=== PATIENT | male | born 1950 | race Caucasian/White ===

== ENCOUNTER 2024-01-27 09:16 | Outpatient (OUT) | payer MEDICARE, OTHER, SELFPAY ==
--- NOTE | 2024-01-26 15:23 | V.VEINS.HP ---
Vital Signs 01/26/24 15:43 01/27/24 09:25 Weight 114.305 kg BP 136/78 BP Location Left Brachial BP Position Sitting BP Cuff Size Adult BP Source Manual Cuff Respiration 18 Pulse 75 Pulse Source Monitor Pulse Oximetry (%) 95 Oxygen Delivery Method Room Air Comment The patient's blood pressure is elevated. Varicose Veins Patient is a 73 year old male in this day referred from his PCP Dr. Devi secondary to venous insufficiency. Patient c/o bilateral leg numbness, pain, edema, and heaviness. Patient rates pain at a 3-4 on a scale of 1-10. Patient states noted varicosities to lower legs within the last 3 months. Patient states that he was able to walk 3-5 miles per day but now is unable to do that due to heaviness and weakness and pain. Patient has not worn bilateral leg compression stockings, yet is willing to purchase them and wear them accordingly. Patient also notes multiple episodes of hemorrhagic varicosities. Patient has no history of blood clots. Patient is unaware of any family history of varicose veins. Godwin Bazzi MD personally performed the services described in this documentation, as scribed by Bay Reaves RN in my presence and it is both accurate and complete. Bay Bazzi RN, am scribing for, and in the presence of, Dr. Godwin Gray and in the presence of the patient. . thigh: bilateral (left leg > right leg), knee: bilateral, calf: bilateral, ankle: bilateral and gonzalez: bilateral aching, burning, cramping and dull 3 3 months Worsened in recent months: Yes standing elevating extremities Reports muscle spasms of leg, fatigue, heaviness, limb pain and leg edema History of lower extremity trauma: No Superficial thrombophlebitis: No Family history of varicose veins: no Has patient had previous lower extremity venous surgery: No Patient has previously received the following treatment(s) for lower extremity varicose veins: Reports none Does patient have a history of : not applicable Has patient had lower extremity venous scan with relux testing: No Support hose used: No Problems walking or doing physical activity: Yes How does it affect you: unable to exercise due to pain and weakness Do you walk much: Yes Review of Systems ROS Narrative [id number] wound noted to right mid anterior lower leg Godwin Bazzi MD personally performed the services described in this documentation, as scribed by Bay Reaves RN in my presence and it is both accurate and complete. I, Bay Reaves RN, am scribing for, and in the presence of, Dr. Godwin Gray and in the presence of the patient. Status of ROS 10 or more systems reviewed and unremarkable except as noted in history and below Cardiovascular Reports: edema Integumentary/Breast Reports: skin pain, skin swelling and changes in skin color Neurological Reports: numbness in extremities and weakness in extremities Hematologic/Lymphatic Reports: easy bruising and easy bleeding PFSH [facility] Medical History (Updated 01/27/24 @ 09:58 by Bay Reaves) Prostate CA ?C61 - Malignant neoplasm of prostate (ICD-10) Knee arthropathy ?M17.10 - Unilateral primary osteoarthritis, unspecified knee (ICD-10) 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 ?M19.112 - Post-traumatic osteoarthritis, left shoulder (ICD-10) ?S46.002S - Unspecified injury of muscle(s) and tendon(s) of the rotator cuff of left shoulder, sequela (ICD-10) Kidney stones ?N20.0 - Calculus of kidney (ICD-10) Osteoarthritis of hip ?M16.9 - Osteoarthritis of hip, unspecified (ICD-10) Varicose veins of bilateral lower extremities with pain ?I83.813 - Varicose veins of bilateral lower extremities with pain (ICD-10) Hypertension ?I10 - Essential (primary) hypertension (ICD-10) Obesities, morbid ?E66.01 - Morbid (severe) obesity due to excess calories (ICD-10) Obstructive sleep apnea ?G47.33 - Obstructive sleep apnea (adult) (pediatric) (ICD-10) Angina pectoris ?I20.9 - Angina pectoris, unspecified (ICD-10) Coronary artery disease ?I25.10 - Atherosclerotic heart disease of [place] coronary artery without angina pectoris (ICD-10) Nonrheumatic aortic (valve) stenosis ?I35.0 - Nonrheumatic aortic (valve) stenosis (ICD-10) Surgical History (Updated 01/27/24 @ 09:41 by Bay Reaves) History of carpal tunnel surgery ?Z98.890 - Other specified postprocedural states (ICD-10) History of right hip replacement ?Z96.641 - Presence of right artificial hip joint (ICD-10) History of bilateral knee replacement ?Z96.653 - Presence of artificial knee joint, bilateral (ICD-10) Family History (Updated 01/27/24 @ 09:38 by Bay Reaves) Other Aneurysm Family history of hypertension Family history of stroke Social History (Updated 01/27/24 @ 09:42 by Bay Reaves) Within the past year, how often did you have a drink containing alcohol: 2-3 times a week Smoking status: Never smoker Non-prescribed substance use: denies use Meds Home Medications and Allergies Home Medications ?Medication ?Instructions ?Recorded ?Confirmed ?Type amlodipine 5 mg tablet (Norvasc) 5 mg PO DAILY 01/26/24 01/26/24 History aspirin 81 mg capsule 81 mg PO DAILY 01/26/24 01/26/24 History atorvastatin 40 mg tablet 40 mg PO DAILY 01/26/24 01/26/24 History cholecalciferol (vitamin D3) 25 25 mcg PO DAILY 01/26/24 01/26/24 History mcg (1,000 unit) tablet diphenhydramine HCl 25 mg capsule 25 mg PO Q8H PRN allergic reaction 01/26/24 01/26/24 History (Benadryl) losartan 100 mg tablet (Cozaar) 100 mg PO DAILY 01/26/24 01/26/24 History semaglutide (weight loss) 1 mg/0.5 0.25 mg subcut Q7D 01/26/24 01/26/24 History mL subcutaneous pen injector (Wegovy) sildenafil 50 mg tablet (Viagra) 50 mg PO DAILY PRN sexual activity 01/26/24 01/26/24 History tadalafil 10 mg tablet (Cialis) 10 mg PO DAILY PRN sexual activity 01/26/24 01/26/24 History zolpidem 10 mg tablet (Ambien) 01/26/24 History Allergies Allergy/AdvReac Type Severity Reaction Status Date / Time No Known Drug Allergies Allergy Verified 01/26/24 15:42 Exam Constitutional Documenting provider has reviewed patient's vital signs: yes Common normals: oriented x3 Nutritional appearance: overweight Lymph Lymphatic: no lymphedema noted Cardio Peripheral pulses: posterior tibial pulses present and dorsalis pedis pulses present Extremity Common normals: normal capillary refill General: calf tenderness and edema Right lower extremity: lower leg Right lower leg: inspection and palpation Left lower extremity: lower leg Left lower leg: inspection and palpation Neuro Common normals: oriented x3 Results Additional Findings Additional findings: Bilateral leg reflux u/s reveals dilated and incompetent great and small saphenous veins along with incompetent perforating vein near ulcer to right mid lower leg along with bilateral leg branch saphenous truncal tuberosity varicosities. Godwin Bazzi MD personally performed the services described in this documentation, as scribed by Bay Reaves RN in my presence and it is both accurate and complete. Bay Bazzi RN, am scribing for, and in the presence of, Dr. Godwin Gray and in the presence of the patient. Assessment and Plan Assessment and Plan (1) Varicose veins of bilateral lower extremities with pain: Plan Patient to initiate bilateral leg knee high compression stocking use, continue exercise, rest, and elevation bilateral legs/feet. Patient to return in 3 months for f/u post compression stocking use. If symptoms persist, move forward with EVLT's of bilateral leg GSV and SSV and perforating vein to right lower leg. Once EVLT's complete, move forward with microfoam chemical ablation bilateral leg branch saphenous tuberosities. Godwin Bazzi MD personally performed the services described in this documentation, as scribed by Bay Reaves RN in my presence and it is both accurate and complete. Bay Bazzi RN, am scribing for, and in the presence of, Dr. Godwin Gray and in the presence of the patient.
--- NOTE | 2024-01-27 09:17 | VEIN_ITS ---
Patient Name: MEERA WARNER MR#: [id number] : 1950 Exam Date: 01/27/2024 Ordering Doctor: DR MEERA BRAND M.D. RADIOLOGY REPORT PROCEDURE: VC EXT VENOUS REFLUX GEMINI LMTD COMPARISON: None. INDICATIONS: I83.813 Bilateral painful varicose veins TECHNIQUE: Duplex imaging of the lower extremity to assess the deep and superficial venous system for the presence of deep or superficial venous incompetence and to document the location and severity of disease. The study includes evaluation of the great saphenous vein (GSV), anterior accessory saphenous vein (AASV) and small saphenous vein (SSV). Patient scanned in reverse Trendelenburg and standing. FINDINGS: RIGHT LOWER EXTREMITY: Saphenofemoral Junction Reflux: Yes 7.5mm 1.7 sec GSV: Diam (mm) Reflux/ Time (sec) Proximal Thigh 6.3 Yes 2.0 Mid Thigh 6.6 Yes 1.7 Distal Thigh 5.9 Yes 2.9 Prox Calf 5.9 Yes 3.3 Mid Calf 0.9 No Saphenopopliteal Junction Reflux: 5.7mm Yes 2.2 SSV: Proximal Calf 5.8 Yes 0.6 Mid Calf 5.3 Yes 3.6 AASV: Not present Proximal Thigh Mid Thigh Distal Thigh Thrombi: Non occlusive chronic thrombus visualized in SSV. Compressibility: Normal Flow: Normal Preforator: Dist/med calf 5.1mm with 1.2s reflux in area of wound. Tech Note: Incompetent GSV and SSV. GSV is extrafascial from distal thigh to mid calf. Patent varicose vein mid/med calf 5.2mm with 2.1s reflux. Patent varicose vein dist/med thigh 4.4mm with 0.6s reflux. Patent varicose vein prox/med calf 5.7mm with 2.1s reflux. LEFT LOWER EXTREMITY: Saphenofemoral Junction Reflux: Yes 7.8 mm 1.6 sec GSV: Diam (mm) Reflux/Time (sec) Proximal Thigh 6.1 Yes 0.6 Mid Thigh 5.3 Yes 1.1 Distal Thigh 5.1 Yes 0.9 Prox Calf 4.9 No Mid Calf 4.8 Yes 0.6 Saphenopopliteal Junction Relux: 6.0 mm Yes 0.7 SSV: Proximal Calf 5.5 Yes 1.4 Mid Calf 3.3 No AASV: Proximal Thigh Mid Thigh Distal Thigh Thrombi: Non occlusive chronic thrombus visualized in SSV. Compressibility: Normal Flow: Normal Pharmacologist: Dist/med calf 3.4mm with 0s reflux. Tech Note: Incompetent GSV and SSV. Patent varicose vein prox/med calf 5.3mm with 0.6s reflux. Patent varicose vein medial knee 4.6mm with 0.8s reflux. CONCLUSION: 1. Abnormally dilated and incompetent bilateral great saphenous veins and bilateral small saphenous veins. 2. Abnormally dilated incompetent large tectonophysicist vein within lower right leg at site of slow healing wound. Dictated by: Godwin Gray M.D. on 01/27/2024 at 10:17 Approved by: Godwin Gray M.D. on 01/27/2024 at 10:24
--- NOTE | 2024-01-27 09:17 | VEIN_ITS ---
Patient Name: MEERA WARNER MR#: [id number] : 1950 Exam Date: 01/27/2024 Ordering Doctor: DR MEERA BRAND M.D. RADIOLOGY REPORT PROCEDURE: [facility] - OFFICE VISIT INITIAL COMPARISON: None. PROGRESS NOTES: [age] year old male who presents with a 3 month history of dilated bulging veins, edema, heaviness, nonhealing wound. The patient's left leg symptoms are worse than the right. There has been a progression of symptoms over time. This increases with prolonged leg dependency. The patient describes an improvement with rest, elevation, exercise. The patient denies any signs and symptoms to suggest arterial ischemia. The patient describes a family history : None. The patient has drinking and smoking history of occasional alcohol consumption; no tobacco use. Patient has a past medical history significant for varicose veins, coronary artery disease, kidney stones. The patient denies a history of deep venous thrombus or pulmonary embolus. See separate history and physical for medication list. No prior treatment for varicose or spider veins. No prior use of compression stockings. After review of nurse notes, history and physical exam I discussed at length the pathophysiology of venous hypertension and possible treatments, therapies and strategies available. We discussed at length the importance of elevating the lower extremities above the level of the heart, increased physical activity and compression stocking use. Ultrasound venous reflux study performed today was discussed at length with the patient. The report demonstrates abnormally dilated and incompetent bilateral great saphenous veins and bilateral small saphenous veins along with associated incompetent branch saphenous varicosities. Within lower right leg adjacent the nonhealing wound is a dilated and incompetent hall tender vein.. PHYSICAL EXAM: The right leg demonstrates several varicosities, a few spider veins, small nonhealing wound/ ulceration, mild edema, no skin discoloration. The left leg demonstrates several varicosities, a few spider veins, no ulceration, moderate edema, no skin discoloration. Both thighs, legs and feet were symmetrically warm to the touch. Good posterior tibial and dorsalis pedis pulses were present bilaterally. VEIN/VC Facility EST Comprehensive IMPRESSION: 1. Bilateral lower extremity venous insufficiency 2. Bilateral lower extremity varicose veins 3. Bilateral lower extremity subcutaneous edema 4. No flow significant arterial disease 5. CEAP: C6, AP, AP, NE PLAN: 1. Begin using compression stockings. Follow-up in 3 months for evaluation. 2. Elevated legs and increased physical activity symptomatic relief Future plans would include: 3. Endovenous laser ablation of bilateral great saphenous and small saphenous veins. 4. Endovenous laser ablation of lower right leg hall tender vein. 5. Microfoam chemical ablation of bilateral lower extremity incompetent branch saphenous varicosities. Nurse notes, history and physical were reviewed and confirmed, see attached forms. The nurse was present throughout the physical exam and consultation Dictated by: Godwin Gray M.D. on 01/27/2024 at 12:11 Approved by: Godwin Gray M.D. on 01/27/2024 at 12:18
[2024-01-27 09:25] VITALS: BP 136/78; PULSE 75; O2SAT 95
--- NOTE | 2024-01-27 11:08 | W.VEIN ---
Discharge Plan Discharge Disposition: Home, Self-Care Follow Up Appointments: f/u in 3 months Plan of Treatment: initiate compression stockings and f/u in 3 months Print Language: Serbian Discharge Date/Time: 01/27/24 11:09
== END 2024-01-27 11:09 | disposition home or self-care (01) ==
LOC: VC 09:17
PROVIDERS: Visit Provider Radiology Diagnostic Radiology
DX: I83.813 Varicose veins of bilateral lower extremities with pain (principal)
CPT/HCPCS: 93970; G0463

== ENCOUNTER 2024-05-01 09:09 | Outpatient (OUT) | payer MEDICARE, OTHER, SELFPAY ==
--- NOTE | 2024-05-01 07:31 | V.VEINS.HP ---
Varicose Veins Patient in this day as a 3 month f/u. Patient is a 73 year old male referred from his PCP Dr. Devi secondary to venous insufficiency. Patient c/o bilateral leg numbness, pain, edema, and heaviness. Patient rates pain at a 3-4 on a scale of 1-10. Patient states noted varicosities to lower legs within the last 3 months. Patient states that he was able to walk 3-5 miles per day but now is unable to do that due to heaviness and weakness and pain. Patient has not worn bilateral leg compression stockings, yet is willing to purchase them and wear them accordingly. Patient also notes multiple episodes of hemorrhagic varicosities. Patient has no history of blood clots. Patient is unaware of any family history of varicose veins. Patient was administered bilateral leg knee high compression stockings and educated on use of stockings. Patient states that he was able to wear the stockings regularly and did experience improvement most notably in edema. Patient does however, state that he still has persistant pain and edema and would like to proceed with treatments. Godwin Bazzi MD personally performed the services described in this documentation, as scribed by Bay Reaves RN in my presence and it is both accurate and complete. Bay Bazzi RN, am scribing for, and in the presence of, Dr. Godwin Gray and in the presence of the patient. . thigh: bilateral (left leg > right leg), knee: bilateral, calf: bilateral, ankle: bilateral and gonzalez: bilateral aching, burning, cramping and dull 3 3 months Worsened in recent months: Yes standing elevating extremities Reports muscle spasms of leg, fatigue, heaviness, limb pain and leg edema History of lower extremity trauma: No Superficial thrombophlebitis: No Family history of varicose veins: no Has patient had previous lower extremity venous surgery: No Patient has previously received the following treatment(s) for lower extremity varicose veins: Reports none Does patient have a history of : not applicable Has patient had lower extremity venous scan with relux testing: No Support hose used: No Problems walking or doing physical activity: Yes How does it affect you: unable to exercise due to pain and weakness Do you walk much: Yes Review of Systems ROS Narrative [id number] wound noted to right mid anterior lower leg Godwin Bazzi MD personally performed the services described in this documentation, as scribed by Bay Reaves RN in my presence and it is both accurate and complete. I, Bay Reaves RN, am scribing for, and in the presence of, Dr. Godwin Gray and in the presence of the patient. 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 ?M19.112 - Post-traumatic osteoarthritis, left shoulder (ICD-10) ?S46.002S - Unspecified injury of muscle(s) and tendon(s) of the rotator cuff of left shoulder, sequela (ICD-10) Kidney stones ?N20.0 - Calculus of kidney (ICD-10) Osteoarthritis of hip ?M16.9 - Osteoarthritis of hip, unspecified (ICD-10) Varicose veins of bilateral lower extremities with pain ?I83.813 - Varicose veins of bilateral lower extremities with pain (ICD-10) Hypertension ?I10 - Essential (primary) hypertension (ICD-10) Obesities, morbid ?E66.01 - Morbid (severe) obesity due to excess calories (ICD-10) Obstructive sleep apnea ?G47.33 - Obstructive sleep apnea (adult) (pediatric) (ICD-10) Angina pectoris ?I20.9 - Angina pectoris, unspecified (ICD-10) Coronary artery disease ?I25.10 - Atherosclerotic heart disease of [place] coronary artery without angina pectoris (ICD-10) Nonrheumatic aortic (valve) stenosis ?I35.0 - Nonrheumatic aortic (valve) stenosis (ICD-10) Surgical History (Updated 01/27/24 @ 09:41 by Bay Reaves) History of carpal tunnel surgery ?Z98.890 - Other specified postprocedural states (ICD-10) History of right hip replacement ?Z96.641 - Presence of right artificial hip joint (ICD-10) History of bilateral knee replacement ?Z96.653 - Presence of artificial knee joint, bilateral (ICD-10) Family History (Updated 01/27/24 @ 09:38 by Bay Reaves) Other Aneurysm Family history of hypertension Family history of stroke Social History (Updated 01/27/24 @ 09:42 by Bay Reaves) Within the past year, how often did you have a drink containing alcohol: 2-3 times a week Smoking status: Never smoker Non-prescribed substance use: denies use Meds Home Medications and Allergies Home Medications ?Medication ?Instructions ?Recorded ?Confirmed ?Type amlodipine 5 mg tablet (Norvasc) 5 mg PO DAILY 01/26/24 01/26/24 History aspirin 81 mg capsule 81 mg PO DAILY 01/26/24 01/26/24 History atorvastatin 40 mg tablet 40 mg PO DAILY 01/26/24 01/26/24 History cholecalciferol (vitamin D3) 25 25 mcg PO DAILY 01/26/24 01/26/24 History mcg (1,000 unit) tablet diphenhydramine HCl 25 mg capsule 25 mg PO Q8H PRN allergic reaction 01/26/24 01/26/24 History (Benadryl) losartan 100 mg tablet (Cozaar) 100 mg PO DAILY 01/26/24 01/26/24 History semaglutide (weight loss) 1 mg/0.5 0.25 mg subcut Q7D 01/26/24 01/26/24 History mL subcutaneous pen injector (Wegovy) sildenafil 50 mg tablet (Viagra) 50 mg PO DAILY PRN sexual activity 01/26/24 01/26/24 History tadalafil 10 mg tablet (Cialis) 10 mg PO DAILY PRN sexual activity 01/26/24 01/26/24 History zolpidem 10 mg tablet (Ambien) 01/26/24 History Allergies Allergy/AdvReac Type Severity Reaction Status Date / Time No Known Drug Allergies Allergy Verified 01/26/24 15:42 Exam Narrative Exam Narrative: Godwin Bazzi MD personally performed the services described in this documentation, as scribed by Bay Reaves RN in my presence and it is both accurate and complete. [facility] RN, am scribing for, and in the presence of, Dr. Godwin Gray and in the presence of the patient. Constitutional Documenting provider has reviewed patient's vital signs: yes Common normals: oriented x3 Nutritional appearance: overweight Lymph Lymphatic: no lymphedema noted Cardio Peripheral pulses: posterior tibial pulses present and dorsalis pedis pulses present Extremity Common normals: normal capillary refill General: calf tenderness and edema Right lower extremity: lower leg Right lower leg: inspection and palpation Left lower extremity: lower leg Left lower leg: inspection and palpation Neuro Common normals: oriented x3 Results Additional Findings Additional findings: Bilateral leg reflux u/s reveals dilated and incompetent great and small saphenous veins bilaterally along with incompetent perforating vein near ulcer to right mid lower leg and lastly, bilateral leg branch saphenous truncal tuberosity varicosities. Godwin Bazzi MD personally performed the services described in this documentation, as scribed by Bay Reaves RN in my presence and it is both accurate and complete. Bay Bazzi RN, am scribing for, and in the presence of, Dr. Godwin Gray and in the presence of the patient. Assessment and Plan Assessment and Plan (1) Varicose veins of bilateral lower extremities with pain: Plan Patient is to continue use of bilateral leg knee high compression stockings, exercise, rest, and elevation of bilateral legs/feet. Patient to return for EVLTs of right GSV followed by left GSV followed by right SSV followed by left SSV followed by EVLT of right leg perforating vein near wound area. Once EVLTs are complete, move forward with microfoam chemical ablation bilateral leg branch saphenous varicosities. Godwin Bazzi MD personally performed the services described in this documentation, as scribed by Bay Reaves RN in my presence and it is both accurate and complete. Bay Bazzi RN, am scribing for, and in the presence of, Dr. Godwin Gray and in the presence of the patient.
--- NOTE | 2024-05-01 07:34 | W.VEIN ---
Discharge Plan Discharge Disposition: Home, Self-Care Outpatient Diagnostics: VC Endovenous Ablation 1VeinRT (Routine) Timeframe: 3 Months Facility: [facility] - Location: [facility]in Center Ordered By: Godwin Gray Plan of Treatment: EVLT of right GSV Patient Instructions: Endovenous Ablation (GEN) Print Language: Tristanian Discharge Date/Time: 05/01/24 09:10
--- NOTE | 2024-05-01 09:11 | VEIN_ITS ---
Patient Name: MEERA WARNER MR#: [id number] : 1950 Exam Date: 05/01/2024 Ordering Doctor: DR MEERA BRAND M.D. RADIOLOGY REPORT PROCEDURE: [facility] - OFFICE VISIT FOLLOW UP COMPARISON: None. PROGRESS NOTES: The patient reports improvement slight improvement in symptoms while wearing compression stockings for past 3 months. Patient continues to have nonhealing lower extremity wounds, dilated veins, lower extremity pain and swelling, and skin discoloration. Physical exam demonstrates dilated bulging veins and nonhealing lower right leg wounds. Review of the ultrasound performed January 27, 2024. The patient expressed a desire to proceed with treatment of incompetent varicose veins. The patient was informed that treatment was a process and would require several procedures/sessions. VEIN/ Facility EST [facility] IMPRESSION: 1. Bilateral lower extremity venous insufficiency and subcutaneous edema as previously diagnosed, with beneficial use of compression stockings over past 3 months. PLAN: 1. Proceed with previously late out plan to include endovenous laser ablation of bilateral great saphenous and small saphenous veins, laser ablation of right lower leg vegetable worker veins, and bilateral lower extremity microfoam chemical ablation of incompetent branch saphenous varicosities. Nurse notes, history and physical were reviewed and confirmed, see attached forms. The nurse was present throughout the physical exam and consultation Dictated by: Godwin Gray M.D. on 05/01/2024 at 11:19 Approved by: Godwin Gray M.D. on 05/01/2024 at 11:24
--- OUTSIDE RECORDS SUMMARY | 2024-05-01 09:32 | XMS_ITS | CCD ---
Author Organization [facility] Care Team Providers Care Senior Electrical Controls Engineer Name Role Phone JOBY CEDILLO Attending JOBY Clement Admitting UnavailJOBY Monsivais Attending UnavailJOBY Monsivais Admitting UnavailDR MEERA Garcia V Consulting Unavailable JOBY CEDILLO Consulting UnavailPRASANNA Smith Admitting Unavailable PRASANNA LEE Attending Unavailable PRASANNA LEE Consulting Unavailable DR MONA REESE Consulting Unavailable JOBY CEDILLO Attending UnavailJOBY Monsivais Admitting Unavailbrandon e Mona Reese DO Primary Care Provider Meera Daugherty Unavailable Mona Reese Unavailable Unavailable Unavailable Mona Reese DO Primary Care Provider Dr. Mona Reese Primary Care Unava ilable Cely Marley Referring Unavailable Cely Marley Attending Unavailable Dr. Mona Reese Primary Care Unava ilable DO Mona Reese Primary Care Provider DO Mona Reese Attending Provider [phone] Mona Reese DO Primary Care Provider DO Mona Reese Primary Care Provider [phone] TRAVIS Izquierdo Attending Provider MD Mona Lezama II Attending Provider TRAVIS Roa Attending Provider [phone] Mona Reese DO Primary Care Provider Mona Reese DO Unavailable Mona Reese DO Primary Care Provider MONA REESE Attending Unavailable MONA REESE Referring Unavailable BIB ROA Attending Unavailable MONA REESE Referring Unavailable MONA REESE Referring Unavailable ESSIE DAUGHERTY Attending Unavailable MONA REESE Attending Unavailable MONA REESE Attending Unavailable MONA REESE Attending Unavailable MONA REESE Referring Unavailable Mona Reese DO Primary Care Provider Cely Marley MD Unavailable CELY MARLEY Attending Unavailable CELY MARLEY Referring Unavailable OMNA REESE Primary Care Unavailab Mona Simpson DO Primary Care Provider [phone] Essie Granger Attending Provider Mona Lezama MD Attending Provider [phone] Mona Reese DO Attending Provider Mona Reese [facility] Care Unavailable Essie Izquierdo Admitting Unavail able Essie Izquierdo Attending Unavail able Mona Reese Primary Care Unavailable Mona Lezama II Admitting UnavailMona [place] II Attending Unavailbrandon e Mona Reese Admitting Unavailable Mona Reese Primary Care Unavailable Mona Reese Attending Unavailable Mona Reese Primary Care Unavailable Bib Roa Admitting Unavailable Bib Roa Attending Unavailable Mona Reese Primary Care Unavailable Mona Lezama II Admitting UnavailMona [place] II Attending Unavailabl e Medications Current Medications Medication Drug Class(es) Dates Sig (Normalized) Sig (Original) allopurinol 100 mg oral tablet (15 sources) Xanthine Oxidase Inhibitor Start: 09-04-2021 take 1 tablet by mouth once daily in the morning allopurinol (Zyloprim) 100 mg tablet Take 1 tablet (100 mg) by mouth once daily in the morning. 09/04/2021 Active take 1 tablet by kenneth th every twenty-four hours Allopurinol 100 MG 1 tablet Orally Once a day Active Comment on above: Take 100 mg by mouth once daily. amLODIPine 5 mg oral tablet (20 sources) Dihydropyridine Calcium Channel Caleb Start: 02-09-20 take 0.5 tablet by mouth once daily amLODIPine (Norvasc) 5 MG tablet Indications: Essential (primary) hypertension (CMS/HCC) Take 0.5 tablets (2.5 mg) by mouth Daily 90 tablet 3 02/09/2024 Active Start: 02-21-2019 End: 04-14-2024 take 1 tablet by mouth once daily Amlodipine 5 mg Tablet Active 5 MG PO Daily February 20, 2019 11:00pm Comment on above: Take 1 tablet by kenneth th once daily. aspirin 81 mg delayed release oral tablet (15 sources) Platelet Aggregation Inhibitor, Nonsteroidal Anti-inflammatory Drug Start: 10-08-2021 take 1 tablet by mouth twice daily aspirin, enteric coated (ASPIRIN, ENTERIC COATED) 81 mg EC tablet Take 1 tablet by mouth twice daily. 10/08/2021 Active End: 04-09-2023 ASPIRIN 81 MG chewable table t Chew 81 mg 1 (one) time each day at the same time. Active take 1 tablet by kenneth th once daily Aspirin EC 81 MG Oral Tablet Delayed Release TAKE 1 TABLET DAILY. Quantity: 90 Refills: 3 Ordered: 10-Apr-2022 Semaj BRIGHT, Cely Active Comment on above: Take 81 mg by mouth once daily. Take 1 tablet by kenneth th twice daily. atorvastatin 40 mg oral tablet (20 sources) HMG-CoA Reductase Inhibitor Start: End: take 1 tablet by mouth once daily Atorvastatin 40 mg Tablet Active 40 MG PO Daily February 20, 2019 11:00pm Comment on above: Take 40 mg by mouth once daily. brimonidine tartrate 2 mg/ml ophthalmic solution (8 sources) alpha-Adrenergic Agonist Start: Brimonidine 0.2 % drops Active DROPS OPHTHALMIC February 08, 2024 11:00pm Start: 02-09-2024 Brimonidine Ac tive DROPS OPHTHALMIC February 09, 2024 12:00am Start: 03-20-2023 brimonidine (A lphaGAN) 0.2 % ophthalmic solution 03/20/2023 Active cholecalciferol 0.025 mg oral tablet (5 sources) Vitamin D take 1 tablet by mouth once daily cholecalciferol (Vitamin D-3) 25 MCG (1000 UT) tablet Take 1 tablet (1,000 Units) by mouth once daily. Active Diclofenac (2 sources) Nonsteroidal Anti-inflammatory Drug Voltaren 1 % as directed Externally Active Diclofenac Activ e diphenhydrAMINE hydrochloride 25 mg oral capsule (20 sources) Histamine-1 Receptor Antagonist Start: 06-21-2020 take 1 capsule by mouth once daily at bedtime as needed for sleep Diphenhydramine Hcl (Benadryl) 25 mg Capsule Active 25 MG PO Daily at bedtime as needed for Sleep June 21, 2020 12:00am diphenhydrAMINE (Sominex) 25 mg tablet Take 1 tablet (25 mg) by mouth as needed at bedtime. Active Comment on above: Take 25 mg by mouth as needed. dorzolamide 20 mg/ml / timolol 5 mg/ml ophthalmic solution (4 sources) Carbonic Anhydrase Inhibitor, beta-Adrenergic Caleb Start: 01-19-2023 take 1 drop(s) into the eye(s) every twelve hours dorzolamide-timoloL (Cosopt) 22.3-6.8 mg/mL ophthalmic solution Administer 1 drop into both eyes every 12 hours. 01/19/2023 Active Start: 01-19-2023 take 1 drop(s) into the eye(s) every twelve hours dorzolamide-timolol (Cosopt) 2-0.5 % ophthalmic solution Administer 1 drop into both eyes every 12 (twelve) hours. 01/19/2023 Active ibuprofen 800 mg oral tablet (6 sources) Nonsteroidal Anti-inflammatory Drug Start: 12-18-2021 take 1 tablet by mouth three times daily as needed for pain Ibuprofen 800 mg Tablet Active 800 MG PO Three times daily as needed for Pain December 17, 2021 11:00pm indomethacin 75 mg extended release oral capsule (4 sources) Nonsteroidal Anti-inflammatory Drug Start: 07-06-2022 End: 04-09-2023 take 1 capsule by mouth twice daily at mealtime indomethacin SR (Indocin SR) 75 mg ER capsule Take 1 capsule (75 mg) by mouth 2 times a day with meals. 0 07/06/2022 04/09/2023 Discontinued (Other) Comment on above: Take 1 capsule by mouth twice daily with meals. losartan potassium 100 mg oral tablet (20 sources) Angiotensin 2 Receptor Caleb Start: 02-21-2019 take 1 tablet by mouth once daily Losartan 100 mg Tablet Active 100 MG PO Daily February 20, 2019 11:00pm Comment on above: Take 100 mg by mouth once daily. meloxicam 15 mg oral tablet (1 source) Nonsteroidal Anti-inflammatory Drug Start: 12-02-2020 take 1 tablet by mouth every twenty-four hours Meloxicam 15 MG 1 tablet Orally Once a day for 30 day(s) Nov, Active mupirocin 0.02 mg/mg topical ointment (1 source) RNA Synthetase Inhibitor Antibacterial Start: 09-10-2021 End: 09-15-2021 mupirocin (BACTROBAN) 2 % ointment twice daily for 5 days. Apply 0.5 inch with cotton swab (Q-tip) to each nostril in the morning and evening for 5 days prior to and including day of surgery. 22 g 0 09/10/2021 09/15/2021 Active Comment on above: twice daily for 5 days. Apply 0.5 inch w ith cotton swab (Q-tip) to each nostril in the morning and evening for 5 days prior to and including day of surgery. OZEMPIC 1 mg/dose (4 mg/3 mL) pen injector (11 sources) Start: 08-21-2021 inject 1 mg by subcutaneous injection every week OZEMPIC 1 mg/dose (4 mg/3 mL) pen injector Inject 1 mg subcutaneously one time a week. 08/21/2021 Active Start: 08-21-2021 inject 1 mg by subcu taneous injection every week OZEMPIC 1 mg/dose (4 mg/3 mL) pen injector Inject 1 mg subcutaneously one time a week. 0 08/21/2021 Active Comment on above: Inject 1 mg subcutaneously one time a we ek. Ozempic 2 mg/dose (8 mg/3 mL) pen injector (2 sources) Start: 12-01-19 End: 04-14-20 inject 2 mg by subcutaneous injection every week Ozempic 2 mg/dose (8 mg/3 mL) pen injector Inject under the skin 1 (one) time per week. 11/30/2022 04/14/2024 Discontinued (Med List Cleanup) Start: 11-30-2022 inject 2 mg by subcu taneous injection every week Ozempic 2 mg/dose (8 mg/3 mL) pen injector Inject under the skin 1 (one) time per week. 0 11/30/2022 Active rosuvastatin calcium 40 mg oral tablet (2 sources) HMG-CoA Reductase Inhibitor Start: 04-14-2024 End: 04-14-2025 take 1 tablet by mouth once daily rosuvastatin (Crestor) 40 mg tablet Indications: Agatston coronary artery calcium score less than 100 , Mixed hyperlipidemia Take 1 tablet (40 mg) by mouth once daily. 90 tablet 3 04/14/2024 04/14/2025 Active Start: 01-17-2010 End: 09-10-2021 rosuvastatin calcium(CRESTOR 10 MG TAB) 2 x a week 0 01/17/2010 09/10/2021 Discontinued (Course of therapy completed) Comment on above: 2 x a week 0.25 mg, 0.5 mg dose 1.5 ml semaglutide 1.34 mg/ml pen injector (5 sources) Start: 02-09-2024 Semaglutide 0. 25 mg or 0.5 mg(2 mg/1.5 mL) pen injector Active 0.25 MG SUBCUT every week February 08, 2024 11:00pm for 4 weeks Start: 2021 inject 0.25 mg by sexton bcutaneous injection every week, then inject 0.5 mg by subcutaneous injection every week, then inject 1 mg by subcutaneous injection every week Ozempic (0.25 or 0.5 MG/DOSE) 2 MG/1.5ML Subcutaneous Solution Pen-injector INJECT 0.25 MG SUBCUTANEOUS WEEKLY FOR 4 WEEKS THEN 0.5 MG WEEKLY FOR 4 WEEKS THEN 1 MG WEEKLY Quantity: 2 Refills: 0 Ordered: 13-Jun-2021 DO Start : 01-Apr-2021 Active semaglutide (Ozempic) 1 mg/dose (4 mg/3 mL) pen injector (1 source) Start: 08-21-2021 End: 04-09-2023 inject 1 mg by subcutaneous injection every week semaglutide (Ozempic) 1 mg/dose (4 mg/3 mL) pen injector Inject 1 mg under the skin once a week. 0 08/21/2021 04/09/2023 Discontinued (Other) sildenafil 50 mg oral tablet (17 sources) Phosphodiesterase 5 Inhibitor Start: 11-04-2023 End: 11-03-2024 take 1 tablet by mouth once daily as needed sildenafil (Viagra) 50 MG tablet Indications: Erectile dysfunction, unspecified erectile dysfunction type Take 1 tablet (50 mg) by mouth Daily as needed for erectile dysfunction 12 tablet 3 11/04/2023 11/03/2024 Active Start: 06-24-2012 sildenafil (Vi agra) 100 mg tablet Take 0.5 tablets (50 mg) by mouth if needed. 30-60 minutes before sexual intercourse 06/24/2012 Active take 1 tablet by kenneth th once daily Sildenafil Citrate 100 MG Oral Tablet TAKE 1 TABLET DAILY 1 HOUR BEFORE NEEDED Quantity: 0 Refills: 0 Ordered: 10-Apr-2022 DO Active Comment on above: Take 0.5 tablets by mouth as needed. 30-60 minutes before sexual intercourse Spironolactone-HCTZ (1 source) Spironolactone-H CTZ Active tadalafil 10 mg oral tablet (8 sources) Phosphodiesterase 5 Inhibitor Start: 02-09-2024 Tadalafil Active MG PO February 09, 2024 12:00am Start: 2023 Tadalafil 10 m g tablet Active MG PO February 08, 2024 11:00pm tamsulosin hydrochloride 0.4 mg oral capsule (9 sources) alpha-Adrenergic Caleb Start: 01-07-2022 Tamsu losin HCl - 0.4 MG Oral Capsule Quantity: 30 Refills: 0 Ordered: 07-Jan-2022 DO Start : 07-Jan-2022 Active Start: 12-18-2021 End: 04-14-2024 take 1 capsule by mouth once daily Tamsulosin (Flomax) 0.4 mg Capsule Discontinued 0.4 MG PO Daily December 17, 2021 11:00pm February 09, 2024 8:35am 12 hr timolol 5 mg/ml ophthalmic solution (16 sources) beta-Adrenergic Caleb Start: 09-10-2021 End: 04-09-2023 timolol maleate (TIMOPTIC) 0.5 % ophthalmic solution Use 1 Drop in both eyes once daily. 09/10/2021 Active Start: 09-10-2021 timolol maleat e (TIMOPTIC) 0.5 % ophthalmic solution Use 1 Drop in both eyes once daily. 0 09/10/2021 Active timolol (Timopti c) 0.25 % ophthalmic solution 1 (one) time each day at the same time. Active End: 04-09-2023 take 1 drop(s) into the eye(s) once daily timolol (Timoptic) 0.25 % ophthalmic solution Administer 1 drop into both eyes once daily. 0 04/09/2023 Discontinued (Other) take 1 drop(s) into the eye(s) once daily in the morning Timolol Maleate 0.5 % INSTILL 1 DROP INTO BOTH EYES EVERY MORNING Ophthalmic for 90 Active Comment on above: Use 1 Drop in both e yes once daily. Tirzepatide (Mounjaro) 10 MG/0.5ML solution auto-injector (2 sources) inject 10 mg by subcutaneous injection every week Tirzepatide (Mounjaro) 10 MG/0.5ML solution auto-injector Inject 10 mg under the skin 1 (one) time per week Active tirzepatide, weight loss, (Zepbound) 10 mg/0.5 mL injection (1 source) tirzepatide, romi ght loss, (Zepbound) 10 mg/0.5 mL injection Inject 10 mg under the skin every 7 days. Active traMADol hydrochloride 50 mg oral tablet (1 source) Opioid Agonist Start: 12-31-19 21 take 1 tablet by mouth every six hours traMADol HCl 50 MG 1 tablet as needed Orally every 6 hours for 7 days Dec, Active vitamin b12 0.5 mg oral tablet (3 sources) Vitamin B12 Start: 02-09-20 24 End: 02-09-20 25 take 1 tablet by mouth once daily cyanocobalamin (Vitamin B-12) 500 MCG tablet Indications: Vitamin B12 deficiency Take 1 tablet (500 mcg) by mouth Daily 30 tablet 11 02/09/2024 02/08/2025 Active Vitamin B12 Acti ve Zinc (1 source) Zinc Active zolpidem tartrate 10 mg oral tablet (20 sources) gamma-Aminobutyric Acid-ergic Agonist Start: 06-21-2020 take 1 tablet by mouth once daily Zolpidem 10 mg tablet Active 10 MG PO Daily June 21, 2020 12:00am Comment on above: Take by mouth at bed time as needed. Completed/Discontinued Medications Medication Drug Class(es) Dates Sig (Normalized) Sig (Original) acetaminophen 325 mg / HYDROcodone bitartrate 5 mg oral tablet (6 sources) Opioid Agonist Start: 12-19-19 End: 02-09-20 24 take 1 tablet by mouth every six hours as needed for pain Hydrocodone-Acetaminop hen 5-325 mg Tablet Discontinued 1 TAB PO Q6H as needed for Pain 10 December 18, 2021 February 09, 2024 8:34am acetaminophen 325 mg / oxyCODONE hydrochloride 5 mg oral tablet (6 sources) Opioid Agonist Start: 02-23-20 End: 06-21-19 21 take 1 tablet by mouth every six hours as needed for pain Oxycodone-Acetaminophe n (Percocet) 5-325 mg tablet Discontinued 1 TAB PO Q6H as needed for pain 10 February 22, 2019 June 21, 2020 12:07pm amLODIPine 5 mg / benazepril hydrochloride 10 mg oral capsule (1 source) Dihydropyridine Calcium Channel Caleb, Angiotensin Converting Enzyme Inhibitor End: 09-11-19 take 1 capsule by mouth once daily amLODIPine-benazepril (LOTREL) 5-10 mg per capsule Take 1 capsule by mouth once daily. 0 09/10/2021 Discontinued (Course of therapy completed) Comment on above: Take 1 capsule by [facility] once daily. amoxicillin 500 mg oral tablet (6 sources) Penicillin-class Antibacterial Start: 12-30-19 End: 02-01-20 Amoxicillin 500 mg tablet Indications: S/P hip replacement, right four tabs one hour prior to dental procedure and two tabs six hours after the dental procedure 6 tablet 1 12/29/2021 01/31/2023 Discontinued Comment on above: four tabs one hour p rior to dental procedure and two tabs six hours after the dental procedure docusate sodium 100 mg oral capsule (6 sources) Start: 10-09-19 End: 07-06-19 23 take 1 capsule by mouth twice daily docusate sodium (COLACE) 100 mg capsule Take 1 capsule by mouth twice daily. 10/08/2021 07/06/2022 Discontinued Comment on above: Take 1 capsule by [facility] twice daily. docusate sodium 50 mg / sennosides, nursing home 8.6 mg oral tablet (6 sources) Start: 02-23-20 End: 06-21-19 take 2 tablets by mouth once daily at bedtime as needed for constipation Sennosides-Docusate Sodium (Senna Plus) 8.6-50 mg tablet Discontinued 2 TAB PO Daily at bedtime as needed for constipation February 21, 2019 11:00pm June 21, 2020 12:03pm hydroCHLOROthiazide 25 mg oral tablet (8 sources) Thiazide Diuretic Start: 07-03-19 End: 07-06-19 hydroCHLOROthiazide (HYDRODIURIL, ESIDRIX) 25 mg tablet Take 12.5 mg by mouth once daily. 07/03/2021 07/06/2022 Discontinued Start: 07-03-2021 take 1 tablet by kenneth th once daily hydroCHLOROthiazide (HYDRODIURIL, ESIDRIX) 25 mg tablet Take 25 mg by mouth once daily. 0 07/03/2021 Active Comment on above: Take 25 mg by mouth once daily. Take 12.5 mg by mout h once daily. hydroCHLOROthiazide 25 mg / triamterene 37.5 mg oral tablet (6 sources) Potassium-sparing Diuretic, Thiazide Diuretic Start: End: take 1 tablet by mouth once daily Triamterene-Hydroch lorothiazid 37.5-25 mg Tablet Discontinued 1 TAB PO Daily February 20, 2019 11:00pm February 09, 2024 8:35am isosorbide dinitrate 30 mg oral tablet (1 source) Nitrate Vasodilator End: take 1 tablet by mouth once daily isosorbide dinitrate 30 mg tablet Take 30 mg by mouth once daily. 0 09/10/2021 Discontinued (Course of therapy completed) Comment on above: Take 30 mg by mouth once daily. ketoconazole 20 mg/ml topical cream (1 source) Azole Antifungal Start: 017 End: ketoconazole (NIZORAL) 2 % cream Apply 1 application to affected area once daily. 100 g 3 06/25/2016 09/10/2021 Discontinued (Course of therapy completed) Comment on above: Apply 1 application to affected area once daily. latanoprost 0.05 mg/ml ophthalmic solution (20 sources) Prostaglandin Analog Start: 10-13-2 022 Latanoprost 0.005 % Ophthalmic Solution Quantity: 2 Refills: 0 Ordered: 26-Mar-2022 DO Start : 26-Mar-2022 Active Start: 02-21-2019 End: 04-09-2023 take 1 drop(s) into the eye(s) once daily in the evening latanoprost (XALATAN) 0.005 % ophthalmic solution Use 1 Drop in both eyes every evening. 02/21/2019 Active Start: 02-21-2019 take 1 drop(s) into the eye(s) once daily in the evening latanoprost (XALATAN) 0.005 % ophthalmic solution Use 1 Drop in both eyes every evening. 0 02/21/2019 Active Start: 02-21-2019 take 1 drop(s) into the eye(s) once daily in the evening Latanoprost 0.005 % Drops Active 1 DROPS EYE-BOTH Every evening February 20, 2019 11:00pm Start: 02-21-2019 take 1 drop(s) into the eye(s) once daily in the evening Latanoprost Active 1 DROPS EYE-BOTH Every evening February 21, 2019 12:00am take 1 drop(s) into the eye(s) once daily in the evening Latanoprost 0.005 % 1 drop into affected eye in the evening Ophthalmic Once a day Active Comment on above: Use 1 Drop in both e yes every evening. ondansetron 4 mg disintegrating oral tablet (6 sources) Serotonin-3 Receptor Antagonist Start: 2021 End: 2023 Ondansetron 4 mg Tablet,Disintegratin g Discontinued 4 MG PO every 6 to 8 hours December 17, 2021 11:00pm February 09, 2024 8:35am oxyCODONE hydrochloride 5 mg oral tablet (6 sources) Opioid Agonist Start: 2021 End: 2022 oxyCODONE IR (ROXICODONE) 5 mg immediate release tablet Indications: S/P hip replacement, right take 1 every 6 hours as needed for pain 28 tablet 10/24/2021 07/06/2022 Discontinued Comment on above: take 1 every 6 hours as needed for pain phentermine hydrochloride 37.5 mg oral tablet (6 sources) Sympathomimetic Amine Anorectic Start: 2018 End: 2020 take 1 tablet by mouth once daily Phentermine 37.5 mg Tablet Discontinued 37.5 MG PO Daily February 20, 2019 11:00pm June 21, 2020 12:03pm rivaroxaban 10 mg oral tablet (1 source) Factor Xa Inhibitor take 1 tablet by mouth once daily Xarelto 10 MG Oral Tablet Take 1 a day Quantity: 90 Refills: 3 Ordered: 10-Apr-2022 DO Active Semaglutide-Weight Management (Wegovy) 1 MG/0.5ML solution auto-injector (2 sources) Start: 2023 End: 2023 inject 1 mg by subcutaneous injection every week Semaglutide-Weight Management (Wegovy) 1 MG/0.5ML solution auto-injector Indications: Elevated Lp(a) (CMS/HCC) , Coronary artery disease involving [place] coronary artery of [place] heart without angina pectoris (CMS/HCC) , Obstructive sleep apnea syndrome , Morbid obesity (CMS/HCC) Inject 1 mg under the skin 1 (one) time per week 2 mL 3 01/19/2024 04/12/2024 Discontinued spironolactone 25 mg oral tablet (8 sources) Aldosterone Antagonist Start: 2021 End: 2022 take 1 tablet by mouth once daily spironolactone (ALDACTONE) 25 mg tablet Take 25 mg by mouth once daily. 07/03/2021 07/06/2022 Discontinued Comment on above: Take 25 mg by mouth once daily. terbinafine 250 mg oral tablet (1 source) Allylamine Antifungal Start: 2016 End: 2021 take 1 tablet by mouth once daily terbinafine HCl (LAMISIL) 250 mg tablet Take 1 tablet by mouth once daily. 30 tablet 0 06/25/2016 09/10/2021 Discontinued (Course of therapy completed) Comment on above: Take 1 tablet by kenneth once daily. valsartan 160 mg oral tablet (1 source) Angiotensin 2 Receptor Caleb Start: 2009 End: 2021 valsartan(DIOVAN 160 MG TAB) Take one(1) tablet daily. 0 01/17/2010 09/10/2021 Discontinued (Course of therapy completed) Comment on above: Take one(1) tablet d aily. Problems Active Problems Problem Classification Problem Date Documented Da te Episodic/Chronic Acquired foot deformities (1 source) Flat foot [pes planus] (acquired), left foot; Translations: [FLAT FOOT PES PLANUS ACQ LT FOOT] Onset: 03-06-2021 Episodic Anxiety disorders (2 sources) Anxiety; Translations: [Anxiety disorder, unspecified] Onset: 08-16-2023 08-16-2023 Chronic Calculus of urinary tract (20 sources) Kidney stone; Translations: [Calculus of kidney] Onset: 05-26-2016 05-26-2016 Episodic Cancer of prostate (14 sources) Malignant tumor of prostate; Translations: [Malignant neoplasm of prostate] Onset: 04-29-2010 04-29-2010 Chronic Chronic ulcer of skin (5 sources) Non-pressure chronic ulcer of other part of left foot with fat layer exposed; Translations: [N-PRS ULCR OTH PRT LT FT FAT EXPOS] Onset: 12-03-2020 Chronic Coronary atherosclerosis and other heart disease (2 sources) Coronary arteriosclerosis; Translations: [Atherosclerotic heart disease of [place] coronary artery without angina pectoris] Onset: 11-04-2023 11-04-2023 Chronic Disorders of lipid metabolism (20 sources) Hypercholesterolemia ; Translations: [Pure hypercholesterolemia , unspecified] Onset: 12-30-2022 Resolved: 04-14-2024 01-17-2010 Chronic Essential hypertension (20 sources) Essential (primary) hypertension; Translations: [Essential hypertension] Onset: 03-06-2021 09-10-2021 Chronic Genitourinary symptoms and ill-defined conditions (20 sources) Urge incontinence of urine; Translations: [Urge incontinence] Onset: 10-23-2010 10-23-2010 Chronic Heart valve disorders (7 sources) Aortic stenosis, non-rheumatic ; Translations: [Nonrheumatic aortic (valve) stenosis] Onset: 01-19-2024 01-19-2024 Chronic Hyperplasia of prostate (18 sources) Benign prostatic hyperplasia; Translations: [Benign prostatic hyperplasia without lower urinary tract symptoms] Onset: 06-25-2011 Resolved: 04-14-2024 06-25-2011 Chronic Miscellaneous mental health disorders (5 sources) Not getting enough sleep; Translations: [Insufficient sleep syndrome] Onset: 12-30-2022 04-08-2023 Chronic Nutritional deficiencies (4 sources) Vitamin D deficiency; Translations: [Vitamin D deficiency, unspecified] Onset: 12-30-2022 04-08-2023 Chronic Nutritional deficiencies (5 sources) Cobalamin deficiency; Translations: [Deficiency of other specified B group vitamins] Onset: 12-30-2022 04-08-2023 Episodic Osteoarthritis (20 sources) Osteoarthritis of right hip joint; Translations: [Unilateral primary osteoarthritis, right hip] Onset: 04-07-2010 Chronic Other and unspecified benign neoplasm (8 sources) History of polyp of colon; Translations: [Personal history of colonic polyps] 06-24-2020 Episodic Other bone disease and musculoskeletal deformities (2 sources) Idiopathic scoliosis of lumbar spine; Translations: [Other idiopathic scoliosis, lumbar region] Onset: 11-04-2023 11-04-2023 Chronic Other circulatory disease (4 sources) Other specified symptoms and signs involving the circulatory and respiratory systems; Translations: [OTH SPEC SX SIGNS INVLV CIRC RS] Onset: 12-10-2020 Episodic Other connective tissue disease (20 sources) History of repair of hip joint; Translations: [Presence of right artificial hip joint] Onset: 10-29-2021 Resolved: 12-30-2022 Chronic Other connective tissue disease (1 source) History of right total knee replacement; Translations: [Presence of right artificial knee joint] Chronic Other connective tissue disease (4 sources) History of total hip arthroplasty; Translations: [Presence of unspecified artificial hip joint] 02-09-2024 Chronic Other connective tissue disease (4 sources) Presence of unspecified artificial hip joint; Translations: [Hip joint replacement] 02-09-2024 Chronic Other connective tissue disease (1 source) Pain in left foot; Translations: [PAIN IN LEFT FOOT] Onset: 12-26-2020 Episodic Other connective tissue disease (1 source) Pain in right foot; Translations: [PAIN IN RIGHT FOOT] Onset: 12-26-2020 Episodic Other connective tissue disease (4 sources) Trochanteric bursitis; Translations: [Trochanteric bursitis, right hip] 02-09-2024 Episodic Other connective tissue disease (4 sources) Trochanteric bursitis, right hip; Translations: [Enthesopathy of hip region] 02-09-2024 Episodic Other hereditary and degenerative nervous system conditions (5 sources) Other idiopathic peripheral autonomic neuropathy; Translations: [OTH IDIO PERIPH AUTONOM NEUROPATHY] Onset: 12-23-2020 Chronic Other hereditary and degenerative nervous system conditions (4 sources) Restless legs; Translations: [Restless legs syndrome] Onset: 12-30-2022 04-08-2023 Chronic Other lower respiratory disease (4 sources) Dyspnea; Translations: [Shortness of breath] Onset: 04-14-2024 04-14-2024 Episodic Other lower respiratory disease (1 source) Shortness of breath; Translations: [Shortness of breath] Onset: 04-14-2024 Episodic Other male genital disorders (4 sources) Erectile dysfunction co-occurrent and due to arterial insufficiency; Translations: [Erectile dysfunction due to arterial insufficiency] Onset: 2023 04-08-2023 Chronic Other male genital disorders (2 sources) Male erectile dysfunction, unspecified; Translations: [Impotence of organic origin] Onset: 11-04-2023 11-04-2023 Chronic Other nervous system disorders (14 sources) Peripheral sensory neuropathy; Translations: [Other hereditary and idiopathic neuropathies] Onset: 02-11-2010 02-11-2010 Chronic Other nervous system disorders (1 source) Chronic pain; Translations: [Other chronic pain] Chronic Other nervous system disorders (1 source) Other chronic pain; Translations: [Other chronic pain G89.29] Onset: 03-13-2021 Resolved: 03-13-2021 Chronic Other non-traumatic joint disorders (1 source) Other specified arthritis, unspecified site; Translations: [OTHER SPECIFIED ARTHRITIS UNS SITE] Onset: 03-06-2021 Chronic Other non-traumatic joint disorders (12 sources) Shoulder pain; Translations: [Pain in unspecified shoulder] 01-17-2010 Episodic Other non-traumatic joint disorders (11 sources) Heterotopic ossification of joint; Translations: [Other specified joint disorders, unspecified joint] Onset: 07-06-2022 07-06-2022 Episodic Other non-traumatic joint disorders (4 sources) Hip pain; Translations: [Pain in right hip] 02-07-2024 Episodic Other non-traumatic joint disorders (4 sources) Other specified joint disorders, unspecified joint; Translations: [Other specified disorders of joint, site unspecified] 02-09-2024 Episodic Other non-traumatic joint disorders (1 source) Pain in right hip; Translations: [Pain in right hip] Onset: 02-09-2024 Episodic Other nutritional; endocrine; and metabolic disorders (4 sources) Body mass index 30+ - obesity; Translations: [Body mass index (BMI) 35.0-35.9, adult] Onset: 04-14-2024 04-14-2024 Chronic Other nutritional; endocrine; and metabolic disorders (1 source) Body mass index (BMI) 37.0-37.9, adult; Translations: [BMI 37.0-37.9, adult Z68.37] Onset: 03-13-2021 Resolved: 03-13-2021 Chronic Other nutritional; endocrine; and metabolic disorders (1 source) Obesity; Translations: [Obesity, unspecified] Chronic Other nutritional; endocrine; and metabolic disorders (4 sources) Morbid obesity; Translations: [Morbid (severe) obesity due to excess calories] Onset: 12-30-2022 04-12-2024 Chronic Other nutritional; endocrine; and metabolic disorders (2 sources) Body mass index (BMI) 35.0-35.9, adult; Translations: [Body mass index (BMI) 35.0-35.9, adult] Onset: 04-14-2024 Chronic Other screening for suspected conditions (not mental disorders or infectious disease) (20 sources) Raised prostate specific antigen; Translations: [Elevated prostate specific antigen [PSA]] Onset: 11-12-2016 Resolved: 04-14-2024 01-17-2010 Episodic Other skin disorders (5 sources) Corns and callosities; Translations: [CORNS AND CALLOSITIES] Onset: 01-01-2021 Episodic Residual codes; unclassified (6 sources) Obstructive sleep apnea syndrome; Translations: [Obstructive sleep apnea (adult) (pediatric)] Onset: 12-30-2022 04-09-2023 Chronic Residual codes; unclassified (1 source) Obstructive sleep apnea (adult) (pediatric); Translations: [Obstructive sleep apnea G47.33] Onset: 03-13-2021 Resolved: 03-13-2021 Chronic Residual codes; unclassified (1 source) Sleep apnea; Translations: [Unspecified sleep apnea] Chronic Residual codes; unclassified (2 sources) Localized edema; Translations: [Localized edema] Onset: 04-14-2024 4 Episodic Screening and history of mental health and substance abuse codes (1 source) Ex-smoker; Translations: [Personal history of tobacco use] Episodic Comment on above: pipe smoker - quit 1 981; Spondylosis; intervertebral disc disorders; other back problems (8 sources) Cervical spondylosis without myelopathy; Translations: [Spondylosis without myelopathy or radiculopathy, cervical region] Onset: 12-30-2022 04-08-2023 Chronic Unclassified (1 source) Low back pain, unspecified; Translations: [Low back pain, unspecified] Onset: 04-26-2024 Past or Other Problems Problem Classification Problem Date Documented Da te Episodic/Chronic Cancer of prostate (14 sources) History of malignant neoplasm of prostate; Translations: [Personal history of malignant neoplasm of prostate] Onset: 2 12-25-2011 Episodic Diabetes mellitus without complication (6 sources) Impaired fasting glycemia; Translations: [Impaired fasting glucose] Onset: 3 04-08-2023 Episodic Joint disorders and dislocations; trauma-related (14 sources) Tear of meniscus of knee; Translations: [Other tear of cartilage or meniscus of knee, current] Onset: 3 01-17-2010 Episodic Other and unspecified benign neoplasm (2 sources) Lipoma of back; Translations: [Benign lipomatous neoplasm of skin and subcutaneous tissue of trunk] Onset: 4 11-04-2023 Episodic Other connective tissue disease (14 sources) Osteophyte of bone; Translations: [Other shoulder lesions, unspecified shoulder] Onset: 3 01-17-2010 Episodic Other non-traumatic joint disorders (1 source) Knee joint effusion; Translations: [Effusion, right knee] Episodic Other nutritional; endocrine; and metabolic disorders (11 sources) Obese class I; Translations: [Obesity, unspecified] Onset: 2 Resolved: 4 10-01-2021 Chronic Other nutritional; endocrine; and metabolic disorders (2 sources) Disorder of plasma protein metabolism; Translations: [Other disorders of plasma-protein metabolism, not elsewhere classified] Onset: 3 Resolved: 3 12-30-2022 Chronic Other nutritional; endocrine; and metabolic disorders (2 sources) Hyperuricemia; Translations: [Hyperuricemia without signs of inflammatory arthritis and tophaceous disease] Onset: 4 08-16-2023 Episodic Phlebitis; thrombophlebitis and thromboembolism (2 sources) Thrombophlebitis; Translations: [Phlebitis and thrombophlebitis of unspecified site] Onset: 3 Resolved: 3 12-30-2022 Episodic Spondylosis; intervertebral disc disorders; other back problems (16 sources) Low back pain; Translations: [Low back pain radiating to right leg] Onset: 3 01-17-2010 Episodic Superficial injury; contusion (1 source) Contusion of knee; Translations: [Contusion of right knee, subsequent encounter] Episodic Unclassified (2 sources) Onset: 3 Resolved: 4 04-09-2023 Results Test Name Value Interpretation Reference Range Facility [facility] echo transthoracicon [facility] [place] [address] Echocardiogram Signed Patient: Meera Mckoy MR#: [id number] : 1950 Acct:[id number] Age/Sex: 73 / M ADM Date: 02/11/24 Loc: Room: Type: [facility] Attending Dr: Bib ROBLES Ordering Provider: Bib ROBLES Date of Service: 02/11/24/ [facility] echo transthoracic: Non-rheumatic . Copies to: MD Bib Lockett AM Patient Location: : 1950 Gender: Male (MM/DD/YYYY) Age: 73 Years Ordering Physician: Bib Roa Height: 70.87 in Weight: 245.004 lb Performed By: Lacie Schneider RDCS BSA: 2.30 m2 BP: 135 / 67 mmHg HR: 76 bpm Reason For Study: Non- rheumatic . History: Prostate Cancer. KATTY. HTN. Glaucoma. KATTY. + + Interpretation Summary Ejection Fraction = 55-60%. The left ventricular size and thickness are normal. The left ventricular wall motion is normal. No hemodynamically significant valvular aortic stenosis. The study was technically suboptimal in quality due to poor acoustic windows . There is no comparison study available. Procedure/Quality: A two-dimensional transthoracic echocardiogram with color flow, Doppler and injection of contrast agent Definity was performed. The study was technically suboptimal in quality due to poor acoustic windows . Left Ventricle: The left ventricular size and thickness are normal. Ejection Fraction = 55-60%. The left ventricular wall motion is normal. Left Atrium: The left atrium appears normal in size. Right Atrium: The right atrium is not well visualized. Right Ventricle: The right ventricle is not well visualized. The right ventricle is grossly normal size. Aortic Valve: The aortic valve is moderately sclerotic. The aortic valve is not well visualized. No hemodynamically significant valvular aortic stenosis. Mitral Valve: The mitral valve is not well visualized. The mitral valve is mildly sclerotic. There is no mitral regurgitation noted. Tricuspid Valve: The tricuspid valve is normal in structure. Pulmonic Valve: The pulmonic valve is not well visualized. Arteries: The aortic root is normal size. Pericardium/Pleura: No pericardial effusion seen. There is no pleural effusion. IVC/Hepatic Veins: The inferior vena cava is normal in size, with a normal collapsibility index. MMode/2D Measurements Calculations IVSd (0.7-1.1 cm): 1.10 cm LVIDd (3.7-5.4 cm): 4.4 cm LVPWd (0.7-1.1 cm): 1.17 cm LVIDs (2.3-3.6 cm): 3.1 cm LA dimension (2.3-4.0 cm): 4.5 Ao root diam (2.0-3.2 cm): 3.5 cm cm FS: 28.8 % Ao root area: 9.5 cm2 EDV(Teich): 88.0 ml LVOT diam: 2.19 cm ESV(Teich): 39.0 ml LVOT area: 3.8 cm2 EF(Teich): 55.6 % LAV(MOD-sp2): 59.6 ml LAV(MOD-sp4): 53.9 ml LA A2 area: 18.5 cm2 LA A4 area: 19.6 cm2 LA length (vol): 5.4 cm LA vol: 56.7 ml LA vol index: 24.7 ml/m2 Doppler Measurements Calculations MV E max denisa: 68.6 cm/sec Ao V2 max: 212.3 cm/sec MV A max denisa: 101.6 cm/sec Ao max P.0 mmHg MV dec time: 0.22 sec Ao mean P.0 mmHg MV dec slope: 311.8 cm/sec?? Ao V2 mean: 149.3 cm/sec E/E' lat: 8.6 Ao V2 VTI: 42.6 cm E/E' med: 10.7 JOLANTA(I,D): 2.13 cm2 JOLANTA(V,D): 2.21 cm2 LV V1 max: 124.9 cm/sec LV V1 max P.2 mmHg LV V1 mean: 93.5 cm/sec LV V1 mean P.9 mmHg LV V1 VTI: 24.2 cm + -------+ + -------+ + -----+ -------+ : Electronically : : signed by: Rasheed : : : : Lucia : : : : on: 02/11/2024, : : : : 9:46 PM : + -----+ -------+ Transcribed By: DEWEY Performed At: 02/11/24 0840 Signed By: Rasheed Myers MD 02/11/24 3467 Normal [facility] XR hip RT min 2V(w/wo pelvis )*on 02-09-2024 XR hip RT min 2V(w/wo pelvis)* [facility] [address] [place] [address] XRay Report Signed Patient: Meera Mckoy MR#: [id number] : 1950 Acct:[id number] Age/Sex: 73 / M ADM Date: 02/09/24 Loc: [facility] Room: Type: [facility] Attending Dr: Mona Lezama II, MD Copies to: Mona Lezama MD Ordering Provider: Mona Lezama MD Date of Service: 02/09/24 XR/XR hip RT min 2V(w/wo pelvis)*: M25.551 - Pain in right hip RIGHT HIP - 2 views: CLINICAL HISTORY: Right LANDY painful for 2.5 months. COMPARISON: Right hip 12/30/2020 FINDINGS: Right hip prosthesis without radiographic complication. There appears to be surrounding heterotopic ossification. Moderate degenerative changes of the left hip. No acute bony process. Prostate radiation seeds are noted. XR/XR hip RT min 2V(w/wo pelvis)* IMPRESSION: RIGHT LANDY WITH SURROUNDING HETEROTOPIC OSSIFICATION. NO HARDWARE COMPLICATION IS SEEN.. Impression dictated by: Ferdinand Mckeon Jr., D.ODayanna02/09/2024 2:52 PM Dictation Location: [id number] Transcribed By: [facility] 02/09/24 145 Dictated By: Ferdinand Mckeon Jr, DO 02/09/241451 Signed By: 08/28/24 1452 Normal [facility] Automated basophil %Ordered By: Essie Daugherty-Catarino on 02-04-2024 Basophils/100 WBC (Bld) 0.8 % Normal . [facility] Comment on above: Performed By: #### C BC, B12, BMP #### [address] Automated basophil countOrde red By: Essie Daugherty-Catarino on 02-04-2024 Basophils (Bld) [#/Vol] 0.0 10*3/uL Normal 0.0-0.2 [facility] Comment on above: Result Comment: PERF ORMED BY: [place] [address] PATHOLOGIST PC MAINTENANCE TECHNICIAN KENNY SOLITARIO M.D. Performed By: #### C BC, B12, BMP #### [address] Automated blood monocyte cou ntOrdered By: Essie Daugherty-Catarino on 02-04-2024 Monocytes (Bld) [#/Vol] 0.8 10*3/uL Normal 0.0-0.8 [facility] Comment on above: Performed By: #### C BC, B12, BMP #### [address] Automated eosinophil %Ordere d By: Essie Izquierdo on 02-04-2024 Eosinophils/100 WBC (Bld) 4.0 % Normal . [facility] Comment on above: Performed By: #### C BC, B12, BMP #### [address] Automated eosinophil countOr dered By: Essie Daugherty-Catarino on 02-04-2024 Eosinophils (Bld) [#/Vol] 0.2 10*3/uL Normal 0.0-0.45 [facility] Comment on above: Performed By: #### C BC, B12, BMP #### [address] Automated monocyte %Ordered By: Essiereji Izquierdo on 02-04-2024 Monocytes/100 WBC (Bld) 13.4 % Normal . [facility] Comment on above: Performed By: #### C BC B12, BMP #### [address] Automated neutrophil %Ordere d By: Essie Izquierdo on 02-04-2024 Neutrophils/100 WBC (Bld) 67.2 % Normal . [facility] Comment on above: Performed By: #### C BC B12, BMP #### [address] Basic Metabolic Panelon 01-13 GFR/1.73 sq M.predicted MDRD (S/P/Bld) [Vol rate/Area] mL/min/{1.73_m2} Normal [facility] Comment on above: Performed By: #### C CLAUDIO B12, BMP #### [facility] [address] [place] [address] Basophils Auto (Bld) [#/Vol] Ordered By: Essie Izquierdo on 02-04-2024 Basophils (Bld) [#/Vol] Automated basoph il count 0.0-0.2 [facility] Basophils/100 WBC Auto (Bld) Ordered By: Essie Camargoverson on 02-04-2024 Basophils/100 WBC (Bld) Automated basophil % . [facility] Calcium [Mass/volume] in Ser um or PlasmaOrdered By: Essie Izquierdo on 02-04-2024 Calcium [Mass/Vol] 9.3 mg/dL Normal 8.6-10.3 [facility] Comment on above: Performed By: #### C BC, B12, BMP #### [facility] [address] [place] [address] Calcium [Mass/Vol] Calcium [Mass/volume ] in Serum or Plasma 8.6-10.3 [facility] Carbon dioxide, total [Moles /volume] in Serum or PlasmaOrdered By: Essie Izquierdo on 02-04-2024 CO2 [Moles/Vol] 27.3 mmol/L Normal 21.0-31.0 [facility] Comment on above: Performed By: #### C BC, B12, BMP #### [facility] [address] CO2 [Moles/Vol] Carbon dioxide, tota l [Moles/volume] in Serum or Plasma 21.0-31.0 [facility] Chloride [Moles/volume] in S rossy or PlasmaOrdered By: Essie Izquierdo on 02-04-2024 Chloride [Moles/Vol] 106 mmol/L Normal 98-107 [facility] Comment on above: Performed By: #### C BC, B12, BMP #### [facility] [address] Chloride [Moles/Vol] Chloride [Moles/volume] in Serum or Plasma 98-107 [facility] Complete Blood Count Auto Di ffon 02-04-2024 Mean Corpuscular HGB Conc 34.3 g/dL Normal 32.5-35.6 [facility] Comment on above: Performed By: #### C BC, B12, BMP #### [facility] [address] NRBC% 0.1 /100{WBC} Normal 0-0.5 [facility] Comment on above: Performed By: #### C CLAUDIO B12, BMP #### [facility] [address] [place] [address] [place] Creatinine [Mass/volume] in Serum or PlasmaOrdered By: Essie Izquierdo on 02-04-2024 Creatinine [Mass/Vol] 0.96 mg/dL Normal 0.70-1.30 [facility] Comment on above: Performed By: #### C BC, B12, BMP #### [facility] [address] Creatinine [Mass/Vol] Creatinine [Mass/volume] in Serum or Plasma 0.70-1.30 [facility] Eosinophils Auto (Bld) [#/Vo l]Ordered By: Essie Izquierdo on 02-04-2024 Eosinophils (Bld) [#/Vol] Automated eosinophil count 0.0-0.45 [facility] Eosinophils/100 WBC Auto (Bl d)Ordered By: Essie Izquierdo on 02-04-2024 Eosinophils/100 WBC (Bld) Automated eosinophil % . [facility] Erythrocyte distribution wid th Auto (RBC) [Ratio]Ordered By: Essie Toribio on 02-04-2024 Erythrocyte distribution width (RBC) [Ratio] Erythrocyte distribution width [Ratio] by Automated count 12.0-14.8 [facility] Erythrocyte distribution wid th [Ratio] by Automated countOrdered By: Essie Izquierdo on 02-04-2024 Erythrocyte distribution width (RBC) [Ratio] 12.9 % Normal 12.0-14.8 [facility] Comment on above: Performed By: #### C CLAUDIO B12, BMP #### [address] Erythrocytes [#/volume] in B lood by Automated countOrdered By: Essie Izquierdo on 02-04-2024 RBC (Bld) [#/Vol] 4.12 10*6/uL Normal 3.90-5.60 [facility] Comment on above: Performed By: #### C CLAUDIO B12, BMP #### [address] Glucose [Mass/volume] in Ser um or PlasmaOrdered By: Essie Izquierdo on 02-04-2024 Glucose [Mass/Vol] 90 mg/dL Normal 70-100 [facility] Comment on above: ADA recommended refe rence rangeRandom Glucose Reference Range is dependent on time and content of last meal. Glucose of more than 200 mg/dL in a nonstressed, ambulatory subject supports the diagnosis of Diabetes Mellitus. Result Comment: [place] Glucose Reference Range is dependent on time and content of last meal. Glucose of more than 200 mg/dL in a nonstressed, ambulatory subject supports the diagnosis of Diabetes Mellitus. ADA recommended reference range Performed By: #### C BC, B12, BMP #### [facility] [address] Glucose [Mass/Vol] Glucose [Mass/volume ] in Serum or Plasma 70-100 [facility] Comment on above: ADA recommended refe rence rangeRandom Glucose Reference Range is dependent on time and content of last meal. Glucose of more than 200 mg/dL in a nonstressed, ambulatory subject supports the diagnosis of Diabetes Mellitus. Hematocrit Auto (Bld) [Volum e fraction]Ordered By: Essie Izquierdo on 02-04-2024 Hematocrit (Bld) [Volume fraction] Hematocrit [Volume Fraction] of Blood by Automated count 38.8-50.0 [facility] Hematocrit [Volume Fraction] of Blood by Automated countOrdered By: Essie Izquierdo on 02-04-2024 Hematocrit (Bld) [Volume fraction] 40.3 % Normal 38.8-50.0 [facility] Comment on above: Performed By: #### C CLAUDIO, B12, BMP #### [facility] [address] Hemoglobin [Mass/volume] in BloodOrdered By: Essie Izquierdo on 02-04-2024 Hemoglobin (Bld) [Mass/Vol] 13.8 g/dL Normal 13.0-17.0 [facility] Comment on above: Performed By: #### C CLAUDIO, B12, BMP #### [facility] [address] [place] [address] Hemoglobin (Bld) [Mass/Vol] Hemoglobin [Mass/volume] in Blood 13.0-17.0 [facility] Leukocytes [#/volume] correc saul for nucleated erythrocytes in Blood by Automated counOrdered By: Essie Izquierdo on 02-04-2024 WBC corrected for nucl RBC Auto (Bld) [#/Vol] 6.1 10*3/uL 4.1-10.5 [facility] WBC corrected for nucl RBC Auto (Bld) [#/Vol] Leukocytes [#/volume] corrected for nucleated erythrocytes in Blood by Automated coun 4.1-10.5 [facility] Leukocytes [#/volume] in Blo od by Automated countOrdered By: Essie Toribio on 02-04-2024 WBC (Bld) [#/Vol] 6.1 10*3/uL Normal 4.1-10.5 [facility] Comment on above: Performed By: #### [place] SNYDER, BMP #### [address] Lymphocytes Auto (Bld) [#/Vo l]Ordered By: Essie Nolberto-Catarino on 02-04-2024 Lymphocytes (Bld) [#/Vol] Lymphocytes [#/volume] in Blood by Automated count Low 1.00-4.8 [facility] Lymphocytes [#/volume] in Bl ood by Automated countOrdered By: Essie Nolberto- Catarino on 02-04-2024 Lymphocytes (Bld) [#/Vol] 0.9 10*3/uL Low 1.00-4.8 [facility] Comment on above: Performed By: #### [place] SNYDER, BMP #### [address] Lymphocytes/100 WBC Auto (Bl d)Ordered By: Essie Nolberto-Catarino on 02-04-2024 Lymphocytes/100 WBC (Bld) Lymphocytes/100 leukocytes in Blood by Automated count . [facility] Lymphocytes/100 leukocytes i n Blood by Automated countOrdered By: Essie Nolberto-Catarino on 02-04-2024 Lymphocytes/100 WBC (Bld) 14.6 % Normal . [facility] Comment on above: Performed By: #### C CLAUDIO B12, BMP #### [address] MCH Auto (RBC) [Entitic mass ]Ordered By: Essie Nolberto-Catarino on 02-04-2024 MCH (RBC) [Entitic mass] MCH [Entitic mass] by Automated count 27.5-35.2 [facility] MCH [Entitic mass] by Automa saul countOrdered By: Essie Nolberto-Catarino on 02-04-2024 MCH (RBC) [Entitic mass] 33.5 pg Normal 27.5-35.2 [facility] Comment on above: Performed By: #### C BC B12, BMP #### [facility] [address] MCHC Auto (RBC) [Mass/Vol]Or dered By: Essie Izquierdo on 02-04-2024 MCHC (RBC) [Mass/Vol] 34.3 g/dL 32.5-35.6 [facility] MCHC (RBC) [Mass/Vol] MCHC [Mass/volume] by Automated count 32.5-35.6 [facility] MCV Auto (RBC) [Entitic vol] Ordered By: Essie Izquierdo on 02-04-2024 MCV (RBC) [Entitic vol] MCV [Entitic vol ume] by Automated count 83.5-101 [facility] MCV [Entitic volume] by Auto mated countOrdered By: Essie Izquierdo on 02-04-2024 MCV (RBC) [Entitic vol] 97.7 fL Normal 83.5-101 [facility] Comment on above: Performed By: #### C BC, B12, BMP #### [facility] [address] Monocytes Auto (Bld) [#/Vol] Ordered By: Essie Izquierdo on 02-04-2024 Monocytes (Bld) [#/Vol] Automated blood monocyte count 0.0-0.8 [facility] Monocytes/100 WBC Auto (Bld) Ordered By: Essie Izquierdo on 02-04-2024 Monocytes/100 WBC (Bld) Automated monocyte % . [facility] Neutrophils Auto (Bld) [#/Vo l]Ordered By: Essie Izquierdo on 02-04-2024 Neutrophils (Bld) [#/Vol] Neutrophils [#/volume] in Blood by Automated count 1.8-7.7 [facility] Neutrophils [#/volume] in Bl ood by Automated countOrdered By: Essie Toribio on 02-04-2024 Neutrophils (Bld) [#/Vol] 4.1 10*3/uL Normal 1.8-7.7 [facility] Comment on above: Performed By: #### C CLAUDIO, B12, BMP #### [facility] [address] [place] [address] [place] Neutrophils/100 WBC Auto (Bl d)Ordered By: Essie Izquierdo on 02-04-2024 Neutrophils/100 WBC (Bld) Automated neutrophil % . [facility] No Panel InformationOrdered By: Essie Izquierdo on 02-04-2024 Estimated GFR (CKD-EPI) > 60.0 mL/Min [facility] Creatinine Clearance (Chem N/A [facility] Nucleated erythrocytes [Pres ence] in Blood by Automated countOrdered By: Essie Izquierdo on 02-04-2024 Nucleated RBC Auto Ql (Bld) 0.1 /100{WBC} 0-0.5 [facility] Nucleated RBC Auto Ql (Bld) Nucleated erythrocytes [Presence] in Blood by Automated count 0-0.5 [facility] Platelet mean volume Auto (B ld) [Entitic vol]Ordered By: Essie Izquierdo on 02-04-2024 Platelet mean volume (Bld) [Entitic vol] Platelet mean volume [Entitic volume] in Blood by Automated count 6.6-10.1 [facility] Platelet mean volume [Entiti c volume] in Blood by Automated countOrdered By: Essie Izquierdo on 02-04-2024 Platelet mean volume (Bld) [Entitic vol] 9.4 fL Normal 6.6-10.1 [facility] Comment on above: Performed By: #### C CLAUDIO, B12, BMP #### [facility] [address] [place] [address] [place] Platelets Auto (Bld) [#/Vol] Ordered By: Essie Izquierdo on 02-04-2024 Platelets (Bld) [#/Vol] Platelets [#/vol ume] in Blood by Automated count 150-450 [facility] Platelets [#/volume] in Bloo d by Automated countOrdered By: Essie Toribio on 02-04-2024 Platelets (Bld) [#/Vol] 192 10*3/uL Normal 150-450 [facility] Comment on above: Performed By: #### C Lake SNYDER, BMP #### [facility] [address] [place] [address] [place] Potassium [Moles/volume] in Serum or PlasmaOrdered By: Essie Izquierdo on 02-04-2024 Potassium [Moles/Vol] 4.3 mmol/L Normal 3.5-5.1 [facility] Comment on above: Performed By: #### C CLAUDIO B12, BMP #### [facility] [address] [place] [address] [place] Potassium [Moles/Vol] Potassium [Moles/volume] in Serum or Plasma 3.5-5.1 [facility] RBC Auto (Bld) [#/Vol]Ordere d By: Essie Izquierdo on 02-04-2024 RBC (Bld) [#/Vol] Erythrocytes [#/volume] in Blood by Automated count 3.90-5.60 [facility] Serum or plasma anion gap de terminationOrdered By: Essie Izquierdo on 02-04-2024 Anion gap [Moles/Vol] 11.0 mmol/L Normal 6.0-15.0 [facility] Comment on above: Performed By: #### C CLAUDIO B12, BMP #### [place] [address] [place] Anion gap [Moles/Vol] Serum or plasma an ion gap determination 6.0-15.0 [facility] Sodium [Moles/volume] in Ser um or PlasmaOrdered By: Essie Izquierdo on 02-04-2024 Sodium [Moles/Vol] 140 mmol/L Normal 136-145 [facility] Comment on above: Performed By: #### C CLAUDIO B12, BMP #### [place] [address] [place] Sodium [Moles/Vol] Sodium [Moles/volume ] in Serum or Plasma 136-145 [facility] Urea nitrogen [Mass/volume] in Serum or PlasmaOrdered By: Essie Toribio on 02-04-2024 Urea nitrogen [Mass/Vol] 20 mg/dL Normal 01-05 [facility] Comment on above: Performed By: #### C BC, B12, BMP #### [facility] [address] Urea nitrogen [Mass/Vol] Urea nitrogen [Mass/volume] in Serum or Plasma 01-05 [facility] Vitamin B12 ser/plasOrdered By: Essie Izquierdo on 02-04-2024 Cobalamin (Vitamin B12) [Mass/Vol] 224 pg/mL Normal 180- [facility] Comment on above: Result Comment: PERF ORMED BY: [facility] [address] [place] [address] PATHOLOGIST PC MAINTENANCE TECHNICIAN KENNY SOLITARIO M.D. Performed By: #### C BC, B12, BMP #### [facility] [address] [place] [address] [facility] Cobalamin (Vitamin B12) [Mass/Vol] Vitamin B12 ser/plas [facility] WBC Auto (Bld) [#/Vol]Ordere d By: Essie Izquierdo on 02-04-2024 WBC (Bld) [#/Vol] Leukocytes [#/volume ] in Blood by Automated count 4.1-10.5 [facility] XR Pelvis APon 07-06-2022 IMPRESSION: Intact right hip arthroplasty. Increased heterotopic ossification. School Child Care Attendant: TAPAN Transcribe Date/Time: Jul 06 2022 9:58A Dictated by : GORDO ANDER MD This examination was interpreted and the report reviewed and electronically signed by: GORDO ANDRE MD on Jul 06 2022 9:59AM [facility] * * *Final Report* * * DATE OF EXAM: Jul 06 2022 9:38AM LZX 5239 - XR PELVIS 1V AP / PROCEDURE REASON: S/P hip replacement, right * * * * Physician Interpretation * * * * EXAMINATION: XR PELVIS 1V AP HISTORY: Right hip replacement follow up S/P hip replacement, right . TECHNIQUE: XR PELVIS 1V AP Laterality: NOT APPLICABLE Number of different views (projections): 1 M: XB_1 COMPARISON: January 31 RESULT: Right total hip arthroplasty in place appears intact and without loosening. Interval increase in heterotopic ossification around the right hip. Mild to moderate left hip degenerative changes. Maintained sacroiliac joints and pubic symphysis. Prostate radiotherapy seeds. No acute fracture or dislocation. There are no bony erosions. DIVISION OF RADIOLOGY Provider, Daniel Mejia [facility] - 07/06/2022 * * *Final Report* * * DATE OF EXAM: Jul 06 2022 9:38AM LZX 5239 - XR PELVIS 1V AP / PROCEDURE REASON: S/P hip replacement, right * * * * Physician Interpretation * * * * EXAMINATION: XR PELVIS 1V AP HISTORY: Right hip replacement follow up S/P hip replacement, right . TECHNIQUE: XR PELVIS 1V AP Laterality: NOT APPLICABLE Number of different views (projections): 1 M: XB_1 COMPARISON: January 31 RESULT: Right total hip arthroplasty in place appears intact and without loosening. Interval increase in heterotopic ossification around the right hip. Mild to moderate left hip degenerative changes. Maintained sacroiliac joints and pubic symphysis. Prostate radiotherapy seeds. No acute fracture or dislocation. There are no bony erosions. IMPRESSION IMPRESSION: Intact right hip arthroplasty. Increased heterotopic ossification. School Child Care Attendant: PSCB Transcribe Date/Time: Jul 06 2022 9:58A Dictated by : GORDO ANDRE MD This examination was interpreted and the report reviewed and electronically signed by: GORDO ANDRE MD on Jul 06 2022 9:59AM EST [facility] Radiology Study observation (narrative) [facility] XR Pelvis APOrdered By: Ccf Provider on 07-06-2022 [facility] Office Visit (Cardiology)on 04-10-2022 Follow-up visit Diagnoses/Problems Assessed Essential hypertension, benign (401.1) (I10) Hyperlipidemia (272.4) (E78.5) Sleep apnea (780.57) (G47.30) Former smoker (V15.82) (Z87.891) pipe smoker - quit 1980 Class 1 obesity with body mass index (BMI) of 31.0 to 31.9 in adult (278.00,V85.31) (E66.9,Z68.31) Orders Class 1 obesity with body mass index (BMI) of 31.0 to 31.9 in adult Healthy Weight Tips; Status:Complete - Retrospective Authorization; Done: 10Apr2022 Some eating tips that can help you lose weight.; Status:Complete - Retrospective Authorization; Done: 10Apr2022 Essential hypertension, benign Changed: From Losartan Potassium 100 MG Oral Tablet To Losartan Potassium 100 MG Oral Tablet TAKE 1 TABLET DAILY Essential hypertension, benign, Hyperlipidemia Renew: Aspirin EC 81 MG Oral Tablet Delayed Release; TAKE 1 TABLET DAILY Hyperlipidemia Renew: Atorvastatin Calcium 40 MG Oral Tablet; TAKE 1 TABLET BY MOUTH EVERY DAY SocHx: Former smoker Tobacco Use Screening; Status:Complete; Done: 10Apr2022 Patient Instructions Please bring all medicines, vitamins, and herbal supplements with you when you come to the office. Prescriptions will not be filled unless you are compliant with your follow up appointments or have a follow up appointment scheduled as per instruction of your physician. Refills should be requested at the time of your visit. Chief Complaint MEERA MCKOY is being seen for an annual follow-up of. History of Present Illness Patient is here for follow-up continue management for hypertension, hyperlipidemia and elevated risk for ischemic heart disease. He underwent extensive evaluation in the past. His previous stress test was negative. He does have elevated calcium scoring. However he has been completely asymptomatic cardiac page. He denies complaint of chest pain, palpitation, lightheadedness, dizziness or syncope. He underwent hip surgery recently without any cardiac issues or complication. ASSESSMENT: 1. Remote evaluation for shortness of breath and chest pain with negative cardiac workup several years ago. He remains reasonably active with no changes in cardiac status or symptoms 2. Elevated risk for ischemic heart disease based on elevated coronary calcium risk score, but he is completely asymptomatic with negative stress test in the past. Effort has been focus on risk factor adjustment 3. Hypertension, controlled. 4. Hyperlipidemia, is on atorvastatin and controlled 5. Obesity with close to 40 pound weight loss 6. Status post recent hip surgery without any cardiac issues or complication RECOMMENDATION: 1. We discussed regarding losing weight, exercise, risk factor adjustment. 2. Reviewed with him his recent lab work 3. Follow-up in 1 year and advised him to forward copy of his lab when it is done 4. Patient advised to notify of change in cardiac status or symptoms Surgical History Problems History of Complete colonoscopy Managed By: Meera Templeton DO History of Corneal lasik History of Hip replacement History of Knee surgery History of Nerve block anesthesia History of Shoulder surgery History of Tonsillectomy Current Meds Medication NameInstruction Allopurinol 100 MG Oral TabletTAKE 1 TABLET DAILY. amLODIPine Besylate 5 MG Oral TabletTAKE 1 TABLET DAILY. Aspirin EC 81 MG Oral Tablet Delayed ReleaseTAKE 1 TABLET DAILY. Atorvastatin Calcium 40 MG Oral TabletTAKE 1 TABLET BY MOUTH EVERY DAY Latanoprost 0.005 % Ophthalmic Solution Losartan Potassium 100 MG Oral Tablet Ozempic (0.25 or 0.5 MG/DOSE) 2 MG/1.5ML Subcutaneous Solution Pen-injectorINJECT 0.25 MG SUBCUTANEOUS WEEKLY FOR 4 WEEKS THEN 0.5 MG WEEKLY FOR 4 WEEKS THEN 1 MG WEEKLY Sildenafil Citrate 100 MG Oral TabletTAKE 1 TABLET DAILY 1 HOUR BEFORE NEEDED Tamsulosin HCl - 0.4 MG Oral Capsule Vitamin D 25 MCG (1000 UT) Oral TabletTAKE 1 TABLET DAILY. Xarelto 10 MG Oral TabletTake 1 a day Allergies Medication No Known Drug Allergies Recorded By: Dinora Preston; 02/13/2022 8:10:45 AM Social History Problems Consumes alcohol occasionally (V49.89) (Z78.9) Former smoker (V15.82) (Z87.891) pipe smoker - quit 1980 No illicit drug use Occasional caffeine consumption Review of Systems Constitutional: not feeling tired. Cardiovascular: no intermittent leg claudication and as noted in HPI. Respiratory: no cough and no shortness of breath. Gastrointestinal: no change in bowel habits and no blood in stools. Integumentary: no skin rashes. Neurological: no seizures and no frequent falls. All other systems have been reviewed and are negative for complaint. Vitals Vital Signs Recorded: 10Apr2022 11:29AM Heart Rate68, R Radial Einlavll137, RUE, Sitting Pysjvoarh61, RUE, Sitting Height5 ft 11 in Aywkip530 lb BMI Rchzcdsjhy46.8 kg/m2 BSA Calculated2.23 Tobacco Useb) No PHQ-2 #1. Over the last 2 weeks have you felt down, depressed or hopeless? (If yes, answer PHQ-9 below)No PHQ (more content not included)... Normal [facility] Tobacco Screening.on 022 Adult depression screening assessment No [facility] [facility] [address] DO Work Phone: Fall risk assessment a) No falls within the last year [facility] [address] DO Work Phone: Tobacco use status [facility] b) No [facility] y 250 DO Work Phone: CNOVon 01-16-2022 CNOV Office Visit (LOORRM ) TIMMYMEERA Dayana ([id number]) 1950 M Date Time Provider Department 01/16/22 11:15 AM GORDO NOVA During your visit today, we recorded the following information about you: Gordo Nova II, MD 01/16/2022 4:48 PM Signed see dictated note Gordo Nova II, MD Referring Provider: SELF [200] Allergies As of Date: 01/16/2022 Noted Allergy Reaction SEASONAL ALLERGIES 12/21/2012 16 - Unknown Date Reviewed: 10/29/2021 Reviewed by: Lorna Ngo PA-C - Fully Assessed Primary Visit Diagnosis:S/P hip replacement, right [Z96.641] Order(s):XR PELVIS 1V AP [[id number]] Order #: [id number] FUTURE Prescriptions as of 01/16/2022 - Amoxicillin 500 mg tablet four tabs one hour prior to dental procedure and two tabs six hours after the dental procedure - oxyCODONE IR (ROXICODONE) 5 mg immediate release tablet take 1 every 6 hours as needed for pain - aspirin, enteric coated (ASPIRIN, ENTERIC COATED) 81 mg EC tablet Take 1 tablet by mouth twice daily. - docusate sodium (COLACE) 100 mg capsule Take 1 capsule by mouth twice daily. - allopurinol (ZYLOPRIM) 100 mg tablet Take 100 mg by mouth once daily. - atorvastatin (LIPITOR) 40 mg tablet Take 40 mg by mouth once daily. - diphenhydrAMINE (BENADRYL) 25 mg capsule Take 25 mg by mouth as needed. - hydroCHLOROthiazide (HYDRODIURIL, ESIDRIX) 25 mg tablet Take 12.5 mg by mouth once daily. - latanoprost (XALATAN) 0.005 % ophthalmic solution Use 1 Drop in both eyes every evening. - losartan (COZAAR) 100 mg tablet Take 100 mg by mouth once daily. - OZEMPIC 1 mg/dose (4 mg/3 mL) pen injector Inject 1 mg subcutaneously one time a week. - spironolactone (ALDACTONE) 25 mg tablet Take 25 mg by mouth once daily. - amLODIPine (NORVASC) 5 mg tablet Take 1 tablet by mouth once daily. - timolol maleate (TIMOPTIC) 0.5 % ophthalmic solution Use 1 Drop in both eyes once daily. - zolpidem 10 mg tab Take by mouth at bedtime as needed. - sildenafil (VIAGRA) 100 mg tablet Take 0.5 tablets by mouth as needed. 30-60 minutes before sexual intercourse Problem List As Of Date 01/16/2022 Noted Resolved Torn Meniscus Low Back Pain Radiating to Right Leg [M54.50, M* High Cholesterol [E78.00] AC (Acromioclavicular) Joint Bone Spurs [M75.80] Shoulder Pain [M25.519] Elevated PSA [R97.20] 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] 02/11/2010 Osteoarth NOS-l/leg [MUU6806] 04/07/2010 Malignant neoplasm of prostate (HCC) [C61] 04/29/2010 Urge incontinence [N39.41] 10/23/2010 Urge incontinence of urine [N39.41] 10/23/2010 BPH (benign prostatic hyperplasia) [N40.0] 06/25/2011 History of prostate cancer [Z85.46] 12/25/2011 Kidney stone [N20.0] 05/26/2016 Pre-op evaluation [Z01.818] 09/10/2021 Primary osteoarthritis of right hip [M16.11] 09/10/2021 Primary hypertension [I10] 09/10/2021 Obesity, Class I, BMI 30-34.9 [E66.9] 10/01/2021 S/P hip replacement, right [Z96.641] 10/29/2021 Encounter Status:Closed by GORDO NOVA II on 01/16/22 Normal [facility] XR PELVIS 1V APon 01-16-2022 XR PELVIS 1V AP * * *Final Report* * * DATE OF EXAM: Jan 16 2022 11:06AM LZX 5239 - XR PELVIS 1V AP / PROCEDURE REASON: S/P hip replacement, right * * * * Physician Interpretation * * * * EXAMINATION / TECHNIQUE: XR PELVIS 1V AP HISTORY: F/U POST OP RT HIP REPLACEMENT S/P hip replacement, right COMPARISON: RESULT: Right total hip arthroplasty. There is no periprosthetic fracture or lucency. There are new heterotopic ossification surrounding the right hip, fairly prominent in overall moderate. No acute fracture or dislocation. No malalignment. Moderate left hip osteoarthritis. Brachytherapy seeds in the prostate. IMPRESSION: Right hip arthroplasty without complication. Prominent developing heterotopic ossifications. School Child Care Attendant: TAPAN Transcribe Date/Time: Jan 16 2022 1:35P Dictated by : LILLI BEAULIEU MD This examination was interpreted and the report reviewed and electronically signed by: LILLI BEAULIEU MD on Jan 16 2022 1:36PM EST [id number] Normal [facility] XR Pelvis APon 01-16-2022 IMPRESSION: Right hip arthroplasty without complication. Prominent developing heterotopic ossifications. School Child Care Attendant: [facility] Transcribe Date/Time: Jan 16 2022 1:35P Dictated by : LILLI BEAULIEU MD This examination was interpreted and the report reviewed and electronically signed by: LILLI BEAULIEU MD on Jan 16 2022 1:36PM EST [email or web address] E_DIVISION OF RADIOLOGY * * *Final Report* * * DATE OF EXAM: Jan 16 2022 11:06AM LZX 5239 - XR PELVIS 1V AP / PROCEDURE REASON: S/P hip replacement, right * * * * Physician Interpretation * * * * EXAMINATION / TECHNIQUE: XR PELVIS 1V AP HISTORY: F/U POST OP RT HIP REPLACEMENT S/P hip replacement, right COMPARISON: RESULT: Right total hip arthroplasty. There is no periprosthetic fracture or lucency. There are new heterotopic ossification surrounding the right hip, fairly prominent in overall moderate. No acute fracture or dislocation. No malalignment. Moderate left hip osteoarthritis. Brachytherapy seeds in the prostate. [id number] E_DIVISION OF RADIOLOGY Provider, Daniel Carrera - 01/16/2022 * * *Final Report* * * DATE OF EXAM: Jan 16 2022 11:06AM LZX 5239 - XR PELVIS 1V AP / PROCEDURE REASON: S/P hip replacement, right * * * * Physician Interpretation * * * * EXAMINATION / TECHNIQUE: XR PELVIS 1V AP HISTORY: F/U POST OP RT HIP REPLACEMENT S/P hip replacement, right COMPARISON: RESULT: Right total hip arthroplasty. There is no periprosthetic fracture or lucency. There are new heterotopic ossification surrounding the right hip, fairly prominent in overall moderate. No acute fracture or dislocation. No malalignment. Moderate left hip osteoarthritis. Brachytherapy seeds in the prostate. IMPRESSION IMPRESSION: Right hip arthroplasty without complication. Prominent developing heterotopic ossifications. School Child Care Attendant: PSCB Transcribe Date/Time: Jan 16 2022 1:35P Dictated by : LILLI BEAULIEU MD This examination was interpreted and the report reviewed and electronically signed by: LILLI BEAULIEU MD on Jan 16 2022 1:36PM EST [facility] Radiology Study observation (narrative) [facility] XR Pelvis APOrdered By: Ccf Provider on 01-16-2022 [facility] CNOVon 11-07-2021 CNOV Office Visit (LOORRM ) MEERA MCKOY ([id number]) 1950 M Date Time Provider Department 11/07/21 12:00 PM GORDO NOVA During your visit today, we recorded the following information about you: Gordo Nova II, MD 11/08/2021 3:15 PM Signed SEE DICTATED NOTE Gordo Nova II, MD Referring Provider: SELF [200] Allergies As of Date: 11/07/2021 Noted Allergy Reaction SEASONAL ALLERGIES 12/21/2012 16 - Unknown Date Reviewed: 10/29/2021 Reviewed by: Lorna Ngo PA-C - Fully Assessed Primary Visit Diagnosis:S/P hip replacement, right [Z96.641] Prescriptions as of 11/08/2021 - oxyCODONE IR (ROXICODONE) 5 mg immediate release tablet take 1 every 6 hours as needed for pain - aspirin, enteric coated (ASPIRIN, ENTERIC COATED) 81 mg EC tablet Take 1 tablet by mouth twice daily. - docusate sodium (COLACE) 100 mg capsule Take 1 capsule by mouth twice daily. - allopurinol (ZYLOPRIM) 100 mg tablet Take 100 mg by mouth once daily. - atorvastatin (LIPITOR) 40 mg tablet Take 40 mg by mouth once daily. - diphenhydrAMINE (BENADRYL) 25 mg capsule Take 25 mg by mouth as needed. - hydroCHLOROthiazide (HYDRODIURIL, ESIDRIX) 25 mg tablet Take 12.5 mg by mouth once daily. - latanoprost (XALATAN) 0.005 % ophthalmic solution Use 1 Drop in both eyes every evening. - losartan (COZAAR) 100 mg tablet Take 100 mg by mouth once daily. - OZEMPIC 1 mg/dose (4 mg/3 mL) pen injector Inject 1 mg subcutaneously one time a week. - spironolactone (ALDACTONE) 25 mg tablet Take 25 mg by mouth once daily. - amLODIPine (NORVASC) 5 mg tablet Take 1 tablet by mouth once daily. - timolol maleate (TIMOPTIC) 0.5 % ophthalmic solution Use 1 Drop in both eyes once daily. - zolpidem 10 mg tab Take by mouth at bedtime as needed. - sildenafil (VIAGRA) 100 mg tablet Take 0.5 tablets by mouth as needed. 30-60 minutes before sexual intercourse Problem List As Of Date 11/07/2021 Noted Resolved Torn Meniscus Low Back Pain Radiating to Right Leg [M54.50, M* High Cholesterol [E78.00] AC (Acromioclavicular) Joint Bone Spurs [M75.80] Shoulder Pain [M25.519] Elevated PSA [R97.20] 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] 02/11/2010 Osteoarth NOS-l/leg [CKC3254] 04/07/2010 Malignant neoplasm of prostate (HCC) [C61] 04/29/2010 Urge incontinence [N39.41] 10/23/2010 Urge incontinence of urine [N39.41] 10/23/2010 BPH (benign prostatic hyperplasia) [N40.0] 06/25/2011 History of prostate cancer [Z85.46] 12/25/2011 Kidney stone [N20.0] 05/26/2016 Pre-op evaluation [Z01.818] 09/10/2021 Primary osteoarthritis of right hip [M16.11] 09/10/2021 Primary hypertension [I10] 09/10/2021 Obesity, Class I, BMI 30-34.9 [E66.9] 10/01/2021 S/P hip replacement, right [Z96.641] 10/29/2021 Encounter Status:Closed by [facility]ORDO NOVA [facility] MEERA MCKOY ([id number]) 1950 M Date Time Provider Department 10/29/21 11:30 AM [facility] During your visit today, we recorded the following information about you: Lorna Ngo PA-C 10/29/2021 2:27 PM Addendum This document has been created with the use of voice recognition technology. It may contain inaccuracies such as misspellings, inaccurate syntax or word sense that escaped review. Chief complaint: Recheck of right hip Right THR 10/07/2021 (3 weeks) HISTORY: Meera is a 71 year old male. Patient comes in today for follow up of his right hip wound and swelling. He reports the hip itself is a bit more achy and stiff but he has been a lot more active as well. He states pain is well controlled with Tylenol and using the oxycodone only when he needs it at night. Making good progress with physical therapy. Pain level 2/10. Notes that the swelling seems to be going down. No other musculoskeletal complaints PAST MEDICAL HISTORY Diagnosis Date - Bone Spurs LT SHOULDER - Elevated PSA - High cholesterol GOOD WITH MEDS - Kidney stone 05/26/2016 - Low back pain radiating to right leg - Shoulder pain RT - Torn meniscus BILATERAL 12 YEARS AGO LEFT KNEE- 04/22 RT KNEE PAST SURGICAL HISTORY Procedure Laterality Date - ARTHROCENTESIS ASPIRAND/INJ MAJOR JT/BURSA W/O US 02/21/10 INJECT KNEE LEFT performed by YESENIA ARCEO at OR - ARTHROSCOPIC KNEE SURGERY 2008- RT LT KNEE ALSO 12 YEARS AGO - ARTHRS KNE SURG W/MENISCECTOMY MED/LAT W/SHVG 02/21/10 ARTHROSCOPY KNEE WITH MENISCECTOMY MEDIAL OR LATERAL AND MENISCAL SHAVING performed by YESENIA ARCEO at OR - BONE SPURS REMOVED SHOULDER - TONSILLECTOMY HX AGE 18 - VASECTOMY UNI/BI SPX W/POSTOP SEMEN EXAMS 22 YEARS AGO Medications reviewed. ALLERGIES Allergen Reactions - Seasonal Allergies Unknown Social History Tobacco Use - Smoking status: Former Smoker Quit date: 06/14/1979 Years since quittin.4 - Smokeless tobacco: Never Used - Tobacco comment: SMOKED PIPE FOR 10 YEARS Substance Use Topics - Alcohol use: Yes Comment: SOCIAL 3x/week - Drug use: No Comment: denies tx for substance and alcohol abuse in the past EXAMINATION: GENERAL: Appears healthy, well-nourished, no deformities. ORIENTATION: Alert and oriented to person place and time HABITUS: Normal GAIT: Ambulating with and without his cane with a slight antalgic gait on start up though he can correct this when he concentrates and ambulate with a relatively normal gait when he is paying attention. Does still have some stiffness with standing up straight. On physical exam of the right hip today, Appearance: No warmth or redness, wound is healing satisfactorily with no sign of infection. The skin just posterior to the incision that was significantly blistered is now completely healed as well. Calf is soft and nontender. Negative Homans. Tenderness/swelling: Does still have some tightness and tenderness as well as swelling just posterior to the incision and is becoming softer at the more distal end with massage but still tight more superiorly. Range of motion: Tolerates hip range of motion without much irritability other than some tightness at extremes. RADIOGRAPHS: Personally reviewed by myself and with the patient today demonstrating right THR components in satisfactory position with good interfaces noted. No evidence of wear or loosening. No other osseous abnormalities. IMPRESSION: Encounter Diagnosis ICD-10-CM 1. S/P hip replacement, right Z96.641 XR PELVIS 1V AP XR PELVIS 1V AP The wound is healing well. He is becoming more active and is getting some tightness. Still has significant tightness of the anterior hip but he has been dealing with this for very long time and will take time to stretch out. Discussed resuming Voltaren gel topically which she has used in the past. May resume his Voltaren orally in 1 week when he is finished with his aspirin twice a day. Discussed use of heat and ice. Discussed walking for exercise paying attention to his gait. We will continue with massage. Follow-up in 1 week for recheck. Patient was evaluated by Dr. Nova as well today and he agrees with this plan. Lorna Ngo PA-C October 29, 2021 12:59 PM Lorna Ngo PA-C 10/29/2021 1:01 PM Signed Continue Physical Therapy Walk twice a day for exercise paying attention to your gait. Heel to toe and longer strides. You may wash the incision and treat like normal skin. Tissue massage to the skin around the incision to loosen it up, 2 minutes multiple times a day. You may use lotion on the incision/glue several times a day to soften the glue. Do not pick at the scabs. Let them fall off on their own. You may use heat on a low setting to relax tissues. Use Ice after activity/exercise. Heat loosen thin (more content not included)... [facility] XR PELVIS 1V APon 10-29-2021 XR PELVIS 1V AP * * *Final Report* * * DATE OF EXAM: Oct 29 2021 12:26PM ANTONIAYamel 5239 - XR PELVIS 1V AP / PROCEDURE REASON: S/P hip replacement, right * * * * Physician Interpretation * * * * EXAMINATION / TECHNIQUE: XR PELVIS 1V AP PATIENT/TECHNOLOGIST PROVIDED HISTORY: Post op right hip CLINICAL INFORMATION ( PROVIDED BY ORDERING CLINICIAN) : S/P hip replacement, right COMPARISON: Pelvis radiograph 10/07/2021 RESULT: Single view of the pelvis demonstrates intact appearing right hip total arthroplasty with intact hardware and unchanged alignment. Resolution of postoperative soft tissue gas. Degenerative changes of the left hip, unchanged. Prostate brachytherapy seeds. There is degenerative change of the lower lumbar spine. IMPRESSION: Intact right hip arthroplasty School Child Care Attendant: PSCB Transcribe Date/Time: Oct 29 2021 12:35P Dictated by : RICKY JAMISON DO This examination was interpreted and the report reviewed and electronically signed by: WOJCIECH IBARRA MD on Oct 29 2021 1:43PM EST [id number] Normal [facility] XR Pelvis APon 10-29-2021 IMPRESSION: Intact right hip arthroplasty School Child Care Attendant: PSC Transcribe Date/Time: Oct 29 2021 12:35P Dictated by : RICKY JAMISON DO This examination was interpreted and the report reviewed and electronically signed by: WOJCIECH IBARRA MD on Oct 29 2021 1:43PM EST ZZZ_DO_NOT_US E_DIVISION OF RADIOLOGY * * *Final Report* * * DATE OF EXAM: Oct 29 2021 12:26PM LZX 5239 - XR PELVIS 1V AP / PROCEDURE REASON: S/P hip replacement, right * * * * Physician Interpretation * * * * EXAMINATION / TECHNIQUE: XR PELVIS 1V AP PATIENT/TECHNOLOGIST PROVIDED HISTORY: Post op right hip CLINICAL INFORMATION ( PROVIDED BY ORDERING CLINICIAN) : S/P hip replacement, right COMPARISON: Pelvis radiograph 10/07/2021 RESULT: Single view of the pelvis demonstrates intact appearing right hip total arthroplasty with intact hardware and unchanged alignment. Resolution of postoperative soft tissue gas. Degenerative changes of the left hip, unchanged. Prostate brachytherapy seeds. There is degenerative change of the lower lumbar spine. ZZZ_DO_NOT_US E_DIVISION OF RADIOLOGY Provider, [facility] - 10/29/2021 * * *Final Report* * * DATE OF EXAM: Oct 29 2021 12:26PM LZX 5239 - XR PELVIS 1V AP / PROCEDURE REASON: S/P hip replacement, right * * * * Physician Interpretation * * * * EXAMINATION / TECHNIQUE: XR PELVIS 1V AP PATIENT/TECHNOLOGIST PROVIDED HISTORY: Post op right hip CLINICAL INFORMATION ( PROVIDED BY ORDERING CLINICIAN) : S/P hip replacement, right COMPARISON: Pelvis radiograph 10/07/2021 RESULT: Single view of the pelvis demonstrates intact appearing right hip total arthroplasty with intact hardware and unchanged alignment. Resolution of postoperative soft tissue gas. Degenerative changes of the left hip, unchanged. Prostate brachytherapy seeds. There is degenerative change of the lower lumbar spine. IMPRESSION IMPRESSION: Intact right hip arthroplasty School Child Care Attendant: PSCJohn Transcribe Date/Time: Oct 29 2021 12:35P Dictated by : RICKY JAMISON DO This examination was interpreted and the report reviewed and electronically signed by: WOJCIECH IBARRA MD on Oct 29 2021 1:43PM [facility] Radiology Study observation (narrative) [facility] XR Pelvis APOrdered By: Ccf Provider on 10-29-2021 [facility] CNOVon 10-24-2021 CNOV Office Visit (LOORRM ) MEERA MCKOY ([id number]) 1950 M Date Time Provider Department 10/24/21 12:45 PM [facility] During your visit today, we recorded the following information about you: Lorna Ngo PA-C 10/29/2021 5:36 PM Signed Patient is here for unscheduled recheck of his right hip wound. He has sent pictures beginning when he remove the Silverlon dressing and noted a significant skin tear at the posterior aspect of the hip where the dressing had been removed. The incision itself was healing excellently. However he is having increasing soreness and increasing swelling at the lateral aspect of the hip which had him concerned. Asked him to come in for evaluation today. Right THR 10/07/2021 On exam of the right hip today the wound itself is healing satisfactorily with no sign of infection. Has a healing skin tear of significant size which is dry and intact. He does have moderate localized swelling and tightness at the lateral aspect of the hip but no more than would be considered normal at this stage postoperatively. Good hip range of motion with minor irritability. Ambulating with a stifflegged gait. We discussed wound care for both the incision and the skin tear. These are both healing well. Discussed soft tissue massage at the lateral aspect of the hip to help decrease tightness and swelling. May advance his weightbearing as tolerated. Was given my phone number if there is any concerns over the weekend. He will send us a photo again on Wednesday. We will keep his regularly scheduled postop visit. I have reassured him that this does not look like infection. Referring Provider: SELF [200] Allergies As of Date: 10/24/2021 Noted Allergy Reaction SEASONAL ALLERGIES 12/21/2012 16 - Unknown Date Reviewed: 10/24/2021 Reviewed by: Lorna Ngo PA-C - Fully Assessed Reason for Visit: Post Op [174] Primary Visit Diagnosis:S/P hip replacement, right [Z96.641] Order(s):oxyCODONE IR (ROXICODONE) 5 mg immediate release tablettake 1 every 6 hours as needed for painDisp: 28 tabletRfl: 0 Prescriptions as of 10/29/2021 - oxyCODONE IR (ROXICODONE) 5 mg immediate release tablet take 1 every 6 hours as needed for pain - aspirin, enteric coated (ASPIRIN, ENTERIC COATED) 81 mg EC tablet Take 1 tablet by mouth twice daily. - docusate sodium (COLACE) 100 mg capsule Take 1 capsule by mouth twice daily. - allopurinol (ZYLOPRIM) 100 mg tablet Take 100 mg by mouth once daily. - atorvastatin (LIPITOR) 40 mg tablet Take 40 mg by mouth once daily. - diphenhydrAMINE (BENADRYL) 25 mg capsule Take 25 mg by mouth as needed. - hydroCHLOROthiazide (HYDRODIURIL, ESIDRIX) 25 mg tablet Take 12.5 mg by mouth once daily. - latanoprost (XALATAN) 0.005 % ophthalmic solution Use 1 Drop in both eyes every evening. - losartan (COZAAR) 100 mg tablet Take 100 mg by mouth once daily. - OZEMPIC 1 mg/dose (4 mg/3 mL) pen injector Inject 1 mg subcutaneously one time a week. - spironolactone (ALDACTONE) 25 mg tablet Take 25 mg by mouth once daily. - amLODIPine (NORVASC) 5 mg tablet Take 1 tablet by mouth once daily. - timolol maleate (TIMOPTIC) 0.5 % ophthalmic solution Use 1 Drop in both eyes once daily. - zolpidem 10 mg tab Take by mouth at bedtime as needed. - sildenafil (VIAGRA) 100 mg tablet Take 0.5 tablets by mouth as needed. 30-60 minutes before sexual intercourse Problem List As Of Date 10/24/2021 Noted Resolved Torn Meniscus Low Back Pain Radiating to Right Leg [M54.50, M* High Cholesterol [E78.00] AC (Acromioclavicular) Joint Bone Spurs [M75.80] Shoulder Pain [M25.519] Elevated PSA [R97.20] 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] 02/11/2010 Osteoarth NOS-l/leg [VGE4933] 04/07/2010 Malignant neoplasm of prostate (HCC) [C61] 04/29/2010 Urge incontinence [N39.41] 10/23/2010 Urge incontinence of urine [N39.41] 10/23/2010 BPH (benign prostatic hyperplasia) [N40.0] 06/25/2011 History of prostate cancer [Z85.46] 12/25/2011 Kidney stone [N20.0] 05/26/2016 Pre-op evaluation [Z01.818] 09/10/2021 Primary osteoarthritis of right hip [M16.11] 09/10/2021 Primary hypertension [I10] 09/10/2021 Obesity, Class I, BMI 30-34.9 [E66.9] 10/01/2021 Prescriptions ordered this encounter Disp Refills Start End OXYCODONE 5 MG TABLET 28 t* 0 10/24/2021 Sig: take 1 every 6 hours as needed for pain Medications Discontinued During This Encounter Prescriptions - oxyCODONE IR (ROXICODONE) 5 mg immediate release tablet (Discontinued) Take 1-2 tablets by mouth every 6 hours as needed for pain. Disposition: Return in about 1 week (around 10/31/2021). Follow-up and Disposition History for Encounter Date Provider Department Center 10/24/2021 [id number] NGO Encounter Status:Closed by [facility]ORNA NGO on 10/29/21 Normal [facility] Basic metabolic 2000 panelon 10-08-2021 Anion gap [Moles/Vol] 9 mmol/L Normal 9-18 [facility] Comment on above: Order Comment: Speci men Type: BLOOD SPECIMENOrdering Facility: [facility] Address: [address] [place] [address] Performed By: #### 2 4321-2 ####[facility] LABORATORYIA [id number] [place] [address] [place] Calcium [Mass/Vol] 8.9 mg/dL Normal 8.5-10.2 [facility] Comment on above: Order Comment: Speci men Type: BLOOD SPECIMENOrdering Facility: [facility] Address: [address] [place] [address] Performed By: #### 2 4321-2 ####[facility] [id number] [place] [address] [place] Chloride [Moles/Vol] 102 mmol/L Normal 97-105 [facility] Comment on above: Order Comment: Speci men Type: BLOOD SPECIMENOrdering Facility: [facility] Address: [address] [place] [address] Performed By: #### 2 4321-2 ####[facility] LABORATORYIA [id number] [place] [address] [place] CO2 [Moles/Vol] 25 mmol/L Normal 22-30 [facility] Comment on above: Order Comment: Speci men Type: BLOOD SPECIMENOrdering Facility: [facility] Address: [address] [place] [address] Performed By: #### 2 4321-2 ####[facility] LABORATORYIA [id number] [place] [address] [place] Creatinine [Mass/Vol] 1.01 mg/dL Normal 0.73-1.22 [facility] Comment on above: Order Comment: Jose David keeley Type: BLOOD SPECIMENOrdering Facility: [facility] Address: [address] [address] Performed By: #### 2 4321-2 ####[facility] LABORATORYCLIA [id number] [place] [address] [place] ESTIMATED GLOMERULAR FILTRATION RATE 80 mL/min/1.73m??? Normal >=60 [facility] Comment on above: Order Comment: Jose David [facility] Type: BLOOD SPECIMENOrdering Facility: [facility] Address: [address] [place] [address] Result Comment: Pam mated Glomerular Filtration Rate (eGFR) is calculated using the 2020 CKD-EPI creatinine equation. This equation utilizes serum creatinine, sex, and age as parameters. The creatinine assay has traceable calibration to isotope dilution-mass spectrometry. Refer to KDIGO guidelines for clinical interpretation. In patients with unstable renal function, e.g. those with acute kidney injury, the eGFR may not accurately reflect actual GFR. Performed By: #### 2 4321-2 ####[facility] LABORATORYCLIA [id number] [place] [address] [place] Glucose [Mass/Vol] 126 mg/dL High 74-99 [facility] Comment on above: Order Comment: Jose David keeley Type: BLOOD SPECIMENOrdering Facility: [facility] Address: [address] [place] [address] Result Comment: The [place] Diabetes Association (ADA) provides guidance for cutoff values for fasting glucose and random glucose. The ADA defines fasting as no caloric intake for at least 8 hours. Fasting plasma glucose results between 100 to 125 mg/dL indicate increased risk for diabetes (prediabetes). Fasting plasma glucose results greater than or equal to 126 mg/dL meet the criteria for diagnosis of diabetes. In the absence of unequivocal hyperglycemia, results should be confirmed by repeat testing. In a patient with classic symptoms of hyperglycemia or hyperglycemic crisis, random plasma glucose results greater than or equal to 200 mg/dL meet the criteria for diagnosis of diabetes. Reference: Standards of Medical Care in Diabetes 2016, [place] [employer] Association. Diabetes Care. 2016.39(Suppl 1). Performed By: #### 2 4321-2 ####[facility] LABORATORYIA [id number] [place] [address] [place] Potassium [Moles/Vol] 4.3 mmol/L Normal 3.7-5.1 [facility] Comment on above: Order Comment: Speci men Type: BLOOD SPECIMENOrdering Facility: [facility] Address: [address] [place] [address] Performed By: #### 2 4321-2 ####[facility] LABORATORYIA [id number] [place] [id number] [place] Sodium [Moles/Vol] 136 mmol/L Normal 136-144 [facility] Comment on above: Order Comment: Speci men Type: BLOOD SPECIMENOrdering Facility: [facility] Address: [address] [place] [address] Performed By: #### 2 4321-2 ####[facility] [id number] [address] [place] Urea nitrogen [Mass/Vol] 22 mg/dL Normal 9-24 [facility] Comment on above: Order Comment: Speci men Type: BLOOD SPECIMENOrdering Facility: [facility] Address: [address] [place] [address] Performed By: #### 2 4321-2 ####[facility] [id number] [address] [place] CBC panel Auto (Bld)on 10-08 Erythrocyte distribution width (RBC) [Ratio] 12.3 % Normal 11.5-15.0 [facility] Comment on above: Order Comment: Speci men Type: BLOOD SPECIMENOrdering Facility: [facility] Address: [address] [place] [address] Performed By: #### 5 8410-2 ####[facility] [id number] [place] [address] [place] Hematocrit (Bld) [Volume fraction] 35.7 % Low 39.0-51.0 [facility] Comment on above: Order Comment: Speci men Type: BLOOD SPECIMENOrdering Facility: [facility] Address: [address] [place] [address] Performed By: #### 5 8410-2 ####[facility] [id number] [address] STATES OF [facility] Hemoglobin (Bld) [Mass/Vol] 12.2 g/dL Low 13.0-17.0 [facility] Comment on above: Order Comment: Speci men Type: BLOOD SPECIMENOrdering Facility: [facility] Address: [address] [place] [address] Performed By: #### 5 8410-2 ####[facility] [id number] [address] [place] MCH (RBC) [Entitic mass] 33.0 pg Normal 26.0-34.0 [facility] Comment on above: Order Comment: Speci men Type: BLOOD SPECIMENOrdering Facility: [facility] Address: [address] [place] [address] Performed By: #### 5 8410-2 ####[facility] [id number] [address] [place] MCHC (RBC) [Mass/Vol] 34.2 g/dL Normal 30.5-36.0 [facility] Comment on above: Order Comment: Speci men Type: BLOOD SPECIMENOrdering Facility: [facility] Address: [address] [place] [address] Performed By: #### 5 8410-2 ####[facility] [id number] [address] OF [facility] MCV (RBC) [Entitic vol] 96.5 fL Normal 80.0-100.0 [facility] Comment on above: Order Comment: Speci men Type: BLOOD SPECIMENOrdering Facility: [facility] Address: [address] [place] [address] Performed By: #### 5 8410-2 ####[facility] LABORATORYIA [id number] [facility] [place] [address] [place] Nucleated RBC (Bld) [#/Vol] 10*3/uL Normal <0.01 [facility] Comment on above: Order Comment: Speci men Type: BLOOD SPECIMENOrdering Facility: [facility] Address: [address] [place] [address] Performed By: #### 5 8410-2 ####[facility] [id number] [place] [address] [place] Platelet mean volume (Bld) [Entitic vol] 10.8 fL Normal 9.0-12.7 [facility] Comment on above: Order Comment: Speci men Type: BLOOD SPECIMENOrdering Facility: [facility] Address: [address] [place] [address] Performed By: #### 5 8410-2 ####[facility] [id number] [place] [address] [place] Platelets (Bld) [#/Vol] 235 10*3/uL Normal 150-400 [facility] Comment on above: Order Comment: Speci men Type: BLOOD SPECIMENOrdering Facility: [facility] Address: [address] [place] [address] Performed By: #### 5 8410-2 ####[facility] [id number] [place] [id number] [place] RBC (Bld) [#/Vol] 3.70 10*6/uL Low 4.20-6.00 [facility] Comment on above: Order Comment: Speci men Type: BLOOD SPECIMENOrdering Facility: [facility] Address: [address] [place], [place] [address] Performed By: #### 5 8410-2 ####[facility] [id number] [place] [address] [place] WBC (Bld) [#/Vol] 16.82 10*3/uL High 3.70-11.00 [facility] Comment on above: Order Comment: Speci men Type: BLOOD SPECIMENOrdering Facility: [facility] Address: [address], [place] [address] Performed By: #### 5 8410-2 ####[facility] LABORATORYCLIA [id number] [facility] [place] [address] [facility] CNDSon 10-08-2021 CNDS HNO ID: [id number] Author: NELSON Kay Service: Orthopaedic Surgery Author Type: Physician Anatomical Embalmer Type: Discharge Summary Filed: 10/08/2021 11:14 AM Note Text: Attestation signed by Gordo Nova MD at 10/08/2021 2:03 PM I have personally performed face to face diagnostic evaluation on this patient. I have examined the patient and reviewed radiographic studies and agree with plan as outlined above. Gordo Nova II, MD October 08, 2021 2:03 PM DISCHARGE SUMMARY Patient Name: Meera Mckoy : 1950 ADMISSION DATE: 10/07/2021 DISCHARGE DATE: 10/08/2021 Attending Physician: Gordo Nova MD Primary Diagnosis: Primary osteoarthritis of right hip [M16.11] Operations During Hospitalization: Procedure(s) (LRB): ARTHROPLASTY REPLACE JOINT TOTAL HIP (Right) Procedures During Hospitalization: No procedures performed Hospital Course: Meera is a 71 year old male complaining of right Hip pain not responsive to a comprehensive course of conservative treatment. Right hip total arthroplasty was proposed and the patient wishes to proceed and was medically cleared prior to the procedure. Patient underwent a Right hip total arthroplasty and was transferred to the PACU in stable condition, He was then admitted to the hospital. Post operatively He did well. Post-operative HgB was stable and within acceptable range and remained there throughout the hospital stay not requiring transfusion. Wound was without sign of infection. He was able to actively participate in a physical and occupational therapy program for gait training and mobilization. Due to the operative findings and procedure performed which is consistent with a major orthopedic procedure, the postoperative analgesia will exceed the allowable morphine equivalent dose. PHYSICAL EXAM: General Appearance: Well appearing, alert, in no acute distress, well-hydrated, well nourished.. Lungs: Lungs clear to auscultation. No wheezing, rhonchi, rales.. Heart: RRR without murmur, gallop, or rubs. No ectopy. Right Lower Extremity: Skin normal color, warm to touch. 5/5 plantarflexion 5/5 dorsiflexion 5/5 ehl extension Sensation intact L1-S1 Palpable dp, pt pulses silverlon dressing c/d/i Patient Condition at Discharge: Stable Discharge Disposition: Home with Self Care DISCHARGE MEDICATION: Current Discharge Medication List START taking these medications docusate sodium (COLACE) 100 mg Take 100 mg by mouth twice daily. oxyCODONE IR (ROXICODONE) 5-10 mg Take 5-10 mg by mouth every 6 hours as needed for pain. Qty: 50 tablet Refills: 0 Associated Diagnoses:Post-op pain CONTINUE these medications which have CHANGED aspirin, enteric coated (ASPIRIN, ENTERIC COATED) 81 mg Take 81 mg by mouth twice daily. CONTINUE these medications which have NOT CHANGED allopurinol (ZYLOPRIM) 100 mg Take 100 mg by mouth once daily. atorvastatin (LIPITOR) 40 mg Take 40 mg by mouth once daily. diphenhydrAMINE (BENADRYL) 25 mg Take 25 mg by mouth as needed. hydroCHLOROthiazide (HYDRODIURIL, ESIDRIX) 12.5 mg Take 12.5 mg by mouth once daily. latanoprost (XALATAN) 1 Drop Use 1 Drop in both eyes every evening. losartan (COZAAR) 100 mg Take 100 mg by mouth once daily. OZEMPIC 1 mg Inject 1 mg subcutaneously one time a week. spironolactone (ALDACTONE) 25 mg Take 25 mg by mouth once daily. amLODIPine (NORVASC) 5 mg Take 5 mg by mouth once daily. timolol maleate (TIMOPTIC) 1 Drop Use 1 Drop in both eyes once daily. zolpidem 10 mg tab Take by mouth at bedtime as needed. sildenafil (VIAGRA) 50 mg Take 50 mg by mouth as needed. 30-60 minutes before sexual intercourse Qty: 6 tablet Refills: 2 Future Appointments: Appointments for Next 60 Days Date Time Provider Location Dept Phone 10/29/2021 9:00 AM [facility] [place] [phone] 11/07/2021 12:00 PM AVTAR GORDO Herson Elizabeth [phone] SIGNATURE: NELSON Kay PATIENT NAME: Meera Mckoy DATE: 10/08/21 TIME: 9:05 AM [facility] NURSING PROGon 10-08-2021 NURSING PROG HNO ID: [id number] Author: Dian Torres RN Service: ? Author Type: Registered Nurse Type: Nursing Progress Note Filed: 10/08/2021 4:39 AM Note Text: Nursing Progress Note Patient Name: Meera Mckoy Patient Location[place] [address] [address] __ Daily Note:Pt OOB with assist and a walker X3. Up to the bathroom X2. Ambulated to the end of the hallway and back X2. This note was completed by: Dian Torres [facility] THERAPY NTon 10-08-2021 THERAPY NT HNO ID: [id number] Author: Yuki Whitman OT/Henrik Service: ? Author Type: Occupational Therapist Type: Therapy (PT/OT/Speech/Resp) Filed: 10/08/2021 12:18 PM Note Text: Occupational Therapy Evaluation SERVICE DATE: 10/08/2021 SERVICE TIME: 1051 to 1200 ROOM: [place] [address] Patient cleared to DC from OT standpoint. Spouse to assist at home as needed. Recommended Discharge Disposition: Home Recommended Discharge Disposition Comments: Patient reports he has outpatient PT scheduled for Wednesday. Anticipated Discharge Needs: Physical Assist at Home Physical Assist at Home for: Cleaning;Laundry;Shopp ing;Transportation Recommended Discharge Equipment: No equipment needs anticipated (Patient has all AE/DME in place; given info for ordering sock aid.) OT 6 Clicks Score: 22 Precautions/Activity Restrictions: Total Hip Replacement;Weight Bearing Restrictions;Fall Risk;Lines/Tubes/Drain s Extremity With Weight Bearing Restricted: Right Lower Extremity Total Hip Replacement Precautions: Posterior Current Hospital Course: s/p LANDY R - Dr. Nova Reason for Hospital Admission: LANDY Relevant Past Medical History: bone spurs L shoulder, elevated PSA, HLD, kidney stones, Bilat TKA's Response to Therapy Interventions: Good participation in activities Continue skilled needs due to: Functional impairment Occupational Therapy Problem List: Impaired Self Care;Functional Mobility Impairment Cognition/Communicatio n Deficits Responsiveness: Alert, Awake Treatment Interventions: Education;Self Care / Home Management;Functional Mobility Training Home Environment Patient Lives With: Spouse Assistance Available: 24 Hour Entry To Home: Stairs;With Rail Number Of Stairs Into Home: 6 Number Of Stairs To Bed/Bath: 15 Stairs to Bed/Bath with: Unilateral Rail Tub/Shower Type: tub with shower - has a grab bar not installed Laundry: completes Equipment Owned: Cane;Wheeled Walker;Standard Walker;Commode-Raised; Service Station Console Operator;Long Handled Shoe Horn;Long Handled Sponge (shower chair and BSC they are getting.) Prior Functional Level: Within Functional Limits Prior Functional Level Comments: indep without device - indep wtih ADL's and iADL's . doesn't sit in low chairs since TKA bilaterally Patient Report: I am familiar with all that (AE) from my previous knee replacements. CURRENT FUNCTIONAL STATUS: Most recent performance Current Activities of Daily Living Assist Level Additional Information Feeding Independent Grooming Independent Bathing Upper Body Set Up Bathing Lower Body Minimal Assistance (to use LH sponge at home (patient has).) Dressing Upper Body Set Up Dressing Lower Body Minimal Assistance (return demo use of AE; patient has LH shoe-horn and cut pressman. Given info to order sock aid. Spouse can assist PRN.) Toileting Supervision Instrumental Activities of Daily Living Assist Level Additional Information Meal/Beverage Prep Cleaning Laundry Medication Management with Strategies Functional Mobility Assist Level Additional Information Rolling Supine to Sit Sit to Supine Scooting Sit to Stand Modified Independent Stand to Sit Modified Independent Bed to Chair Modified Independent Stepping Wheeled Walker Toilet/Commode Shower Functional Mobility Verbal Cues Only Wheeled Walker Blank ochoa indicate activity not attempted Learning/Educational Needs: Discharge Plan;Plan of Care;Precautions;Famil y Education/Training;Anna f Care Goals for Plan of Care: Patient /Caregiver Goals: Go Home Goals: Patient will demonstrate progress with self-care, cognitive and/or coping needs identified to allow safe discharge to home with available support and/or physical assistance. Rehab Potential: Good Patient will be discontinued from Occupational Therapy when no further skilled needs are identified in this setting. PLAN: OT Frequency: Discontinue therapy services Reasons Therapy Services Discontinued: Goals met Plan of Care developed with: Patient;Family TREATMENT INTERVENTIONS: Therapy Diagnosis: Reduced mobility-other;Decreas ed activities of daily living (ADL);General symptoms and signs-other Interventions Provided: Evaluation;Self Longterm Management (74397) $ Evaluation-Low (27668) Billed Units: 1 unit Self Longterm Management (16176) Treatment Minutes: 54 $ Self Longterm Management (29962) Billed Units: 4 units Training AND education provided in: Activity adaption / compensatory strategies, Benefits of in-hospital mobility, Discharge planning, Lower extremity dressing, Lower extremity bathing, Functional mobility involving ADLs, Transfer - Bed to chair, Role of Occupational Therapy, Precautions/restrictio ns, Transfer - Sit to stand The following therapeutic skills were used: Activity dosing, Cuing verbal, Movement facilitation, Muscle activation facilitation, Therapeutic use of self, Teach-back for education Timed Code Treatment (minutes): 54 Skilled (more content not included)... Normal [facility] THERAPY NT HNO ID: [id number] Author: Damari Ordoñez PT Service: Physical Therapy Author Type: Physical Therapist Type: Therapy (PT/OT/Speech/Resp) Filed: 10/08/2021 10:53 AM Note Text: Physical Therapy Treatment SERVICE DATE: 10/08/2021 SERVICE TIME: 0957 to 1040 ROOM: [place] [address] Recommended Discharge Disposition: Outpatient Physical Therapy Recommended Discharge Disposition Comments: pt reports he has outpt PT appointment on Wednesday Anticipated Discharge Needs: Physical Assist at Home Physical Assist at Home for: Cleaning;Laundry;Meals ;Stairs;Self Care;Shopping;Transpor tation Pt cleared for D/C from PT standpoint with PRN assist and outpt PT PT 6 Clicks Score: 22 Precautions/Activity Restrictions: Total Hip Replacement;Weight Bearing Restrictions;Fall Risk;Lines/Tubes/Drain s Extremity With Weight Bearing Restricted: Right Lower Extremity Total Hip Replacement Precautions: Posterior ( modified peck lorenzo approach per surgery report) Current Hospital Course: s/p LANDY R - Dr. Nova Reason for Hospital Admission: LANDY Relevant Past Medical History: bone spurs L shoulder, elevated PSA, HLD, kidney stones, Bilat TKA's Response to Therapy Interventions: Good participation in activities, Improved tolerance for activity, Notable progression with functional activities/skills, On-track to achieve discharge goals Physical Therapy Problem List: Edema;Pain;Safety Deficits;Decreased Activity Tolerance;Decreased Range Of Motion;Impaired Self Care;Decreased Strength;Functional Mobility Impairment;Balance Impaired;Sensory Deficit;Decreased Skin Integrity Treatment Interventions: Education;Joint Mobility;Strengthening ;Functional Mobility Training Home Environment Patient Lives With: Spouse Assistance Available: 24 Hour Entry To Home: Stairs;With Rail Number Of Stairs Into Home: 6 Number Of Stairs To Bed/Bath: 15 Stairs to Bed/Bath with: Unilateral Rail Tub/Shower Type: tub with shower - has a grab bar not installed Laundry: completes Equipment Owned: Cane;Wheeled Walker Prior Functional Level: Within Functional Limits Prior Functional Level Comments: indep without device - indep wtih ADL's and iADL's . doesn't sit in low chairs since TKA bilaterally Patient Report: pt reports he is not having pain - has not had pain overnight CURRENT FUNCTIONAL STATUS: Most recent performance Current Functional Mobility Assist Level Additional Information Rolling Supine to Sit Verbal Cues Only (difficulty raising upper body secondary to weak abdominal, but completes without assist) Sit to Supine Supervision;Set Up (use of bed sheet looped around forefoot) Scooting Modified Independent Sit to Stand Modified Independent Stand to Sit Modified Independent Bed to Chair Modified Independent Bed To Chair Transfer Type: Stepping Bed To Chair Transfer Equipment: Wheeled Walker Toilet/Commode Gait Modified Independent Gait Device: Wheeled Walker Gait Distance (feet): 180 Stairs Contact Guard Assistance Stairs Device: Rail;Cane Number of Stairs: 8 (4 steps x 2 trials) Curb Step Stand By Assistance Device: Wheeled Walker (assist provided for WW stabilization - to prevent from rolling/movement) Car Transfer Blank ochoa indicate activity not attempted General Deviations/Observation s: (adequate step length, adequate ana lilia, cueing to correct forward trunk flexion) JH-HLM: 7: Walk 25 feet or more Learning/Educational Needs: Discharge Plan;Equipment;Functio nal Activities/Mobility;Pl an of Care;Changes in Plan of Care;Precautions;Rehab ilitation Techniques and Procedures;Safety Goals for Plan of Care: Patient /Caregiver Goals: Walk;Go Home;Care For Self Goals: Patient will demonstrate understanding of importance of mobility during hospital stay and resolve all functional needs identified. Progress Toward Goals: Progressing as expected Rehab Potential: Good Patient will be discontinued from Physical Therapy when no further skilled needs are identified in this setting. PLAN: PT Frequency: One additional visit Plan of Care developed with: Patient;Caregiver;Fami ly TREATMENT INTERVENTIONS: Therapy Diagnosis: Reduced mobility-other;Decreas ed activities of daily living (ADL);Muscle Weakness (generalized);Unsteadi ness on feet;Abnormalities of gait and mobility-other Interventions Provided: Therapeutic Exercise (22679);Therapeutic Activity (33825);Gait Training (34634) Therapeutic Exercise (99802) Treatment Minutes: 15 $ Therapeutic Exercise (16472) Billed Units: 1 unit Review of written HEP for LANDY Pt provided with written HEP/reviewed with pt at earlier session Goals and purpose of each exercise reviewed with pt Supine: Ankle pumps Quadricep Set Gluteal Set Heel slides Abduction Pt instructed to continue performing AP, QS, GS 10x/hour while awake Review again of post op restrictions including no bending past 90 degree, twisting/pivoting and no crossing legs (more content not included)... Normal [facility] ANES POSTPROC EVALon 022 ANES POSTPROC EVAL HNO ID: [id number] Author: Arnulfo Bianchi MD Service: Anesthesiology Author Type: Physician Type: Anesthesia Postprocedure Evaluation Filed: 10/07/2021 12:48 PM Note Text: POST ANESTHESIA EVALUATION NOTE : 1950 Procedure Summary Date: 10/07/21 Room / Location: OR03 / AV OR Anesthesia Start: 916 Anesthesia Stop: 120 Procedure: ARTHROPLASTY REPLACE JOINT TOTAL HIP (Right Hip) Diagnosis: Primary osteoarthritis of right hip Surgeons: Gordo Nova MD Responsible Provider: Arnulfo Bianchi MD Anesthesia Type: spinal ASA Status: 2 Anesthesia Type: spinal Last Vitals Vitals Value Taken Time BP 112/73 10/07/21 1245 Temp 36.3 ?C (97.3 ?F) 10/07/21 1204 Pulse 64 10/07/21 1247 Resp 9 10/07/21 1247 SpO2 100 % 10/07/21 1247 Vitals shown include unvalidated device data. Post Anesthesia Patient Status Patient Evaluation: PACU. PACU/ICU Patient Condition: stable. Anticipated Disposition: inpatient floor planned admission. Neurological Status: aware and responsive. Pulmonary Status: breathing comfortably on room air Airway Control: returned to baseline unsupported. Cardiovascular Status: stable. Pain Management: satisfactory to patient Postoperative Hydration: acceptable. Intraoperative Events: no significant anesthesia events Recommendation: continue current plan of care. Anesthesia Observations No Documentation SIGNATURE: Arnulfo Bianchi MD PATIENT NAME: Meera Mckoy DATE: October 07, 2021 TIME: 12:48 PM CSN: [id number] [facility] ANES PRE-OPon 10-07-2021 ANES PRE-OP HNO ID: [id number] Author: Arnulfo Bianchi MD Service: Anesthesiology Author Type: Physician Type: Anesthesia Preprocedure Evaluation Filed: 10/07/2021 8:27 AM Note Text: ANESTHESIOLOGY DAY OF SURGERY NOTE : 1950 Procedure Information Date/Time: 10/07/2145 Procedure: ARTHROPLASTY REPLACE JOINT TOTAL HIP (Right Hip) Location: [place] [address] / OR Surgeons: Gordo Nova MD Estimated body mass index is 34.73 kg/m? as calculated from the following: Height as of 09/10/21: 180.3 cm (5' 11 ). Weight as of 09/10/21: 112.9 kg (249 lb). Most recent hematocrit and potassium results: Hematocrit 43.5 09/10/2021 Potassium 4.6 09/10/2021 Relevant Problems CARDIO (+) Primary hypertension -RENAL (+) Kidney stone NEURO-PSYCH (+) History of prostate cancer I - PHYSICAL EVALUATION AIRWAY Patient intubated: No. Tracheostomy tube not present Mallampati: II. TM distance: >3 FB. Neck ROM: full ROM without neurological symptoms. Mouth opening: adequate. Short neck: no. Thick neck: no DENTAL Normal dental observations. Dental findings: teeth intact. II - ANESTHESIA PLAN ASA Score: 2 Anesthetic Plan: spinal NPO Status: adequate Monitoring plan: Standard ASA. Postoperative analgesic plan: parenteral or oral opioids. Informed Consent Anesthetic risks, benefits, alternatives, personnel and consent discussed: yes. Patient / Responsible Green Party agrees to proceed: yes Patient / Surrogate agrees to blood products: blood products not planned Significant changes in the patient condition since the History and Physical, not otherwise documented in primary service progress note: no. Potential Anesthesia issues that may suggest increased risk of complications or contraindication to planned procedure: none. No vitals data found for the desired time range. Facility-Administered Medications as of 10/07/2021 Medication Dose Route Frequency - acetaminophen 1,000 mg tab(s) (TYLENOL) 1,000 mg ORAL Pre-Op Once - meloxicam 7.5 mg tab(s) (MOBIC) 7.5 mg ORAL Pre-Op Once - lidocaine 10 mg/mL (1 %) 1-2 mg injection (XYLOCAINE) 0.1-0.2 mL INTRADERMAL PRN - lactated ringers iv infusion 5-30 mL/hr INTRAVENOUS CONTINUOUS - tranexamic acid iv piggyback 1000 mg in NaCl 0.7% 100 mL (CYKLOKAPRON) 1,000 mg INTRAVENOUS Pre-Op Once - tranexamic acid iv piggyback 1000 mg in NaCl 0.7% 100 mL (CYKLOKAPRON) 1,000 mg INTRAVENOUS ONCE - ceFAZolin iv piggyback 2 g in D5W (iso-osmotic) 100 mL (ANCEF) 2 g INTRAVENOUS Pre-Op Once - dexAMETHasone sodium phosphate (PF) 8 mg injection (DECADRON) 8 mg INTRAVENOUS Pre-Op Once - promethazine 12.5 mg tab(s) (PHENERGAN) 12.5 mg ORAL Pre-Op Once Outpatient Medications as of 10/07/2021 Medication Sig - diphenhydrAMINE (BENADRYL) 25 mg capsule Take 25 mg by mouth as needed. - latanoprost (XALATAN) 0.005 % ophthalmic solution Use 1 Drop in both eyes every evening. - zolpidem 10 mg tab Take by mouth at bedtime as needed. - aspirin, enteric coated 81 mg EC tablet Take 81 mg by mouth once daily. - sildenafil (VIAGRA) 100 mg tablet Take 0.5 tablets by mouth as needed. 30-60 minutes before sexual intercourse I have interviewed and examined the patient. I have reviewed the medical record and/or the pre-anesthesia evaluation, pertinent labs, and test results. This contains updated information obtained within 48 hours of Surgery/Procedure. SIGNATURE: Arnulfo Bianchi MD PATIENT NAME: Meera Mckoy DATE: October 07, 2021 TIME: 8:27 AM CSN: [id number] [facility] CONFIRM BLOOD TYPEon 022 ABO O [facility] Comment on above: Order Comment: Speci men Type: BLOOD SPECIMENOrdering Facility: [facility] Address: [address] [place] [address] Performed By: #### C ONABO ####[facility] [facility] [id number] [address] Rh Nom (Bld) Positive Normal [facility] Comment on above: Order Comment: Speci men Type: BLOOD SPECIMENOrdering Facility: [facility] Address: [address] [place] [address] Performed By: #### C ONABO ####[place] [facility] [id number] [address] OPERATIVE NOon 10-07-2021 OPERATIVE NO HNO ID: [id number] Author: Gordo Nova MD Service: Orthopaedic Surgery Author Type: Physician Type: Operative Report Filed: 10/07/2021 11:32 AM Note Text: [facility] OPERATIVE REPORT PATIENT NAME: Meera Mckoy AGE: [age] year old LOG ID: [id number] Surgery Date: 10/07/2021 SURGEON: Gordo Nova MD INSTALLER: Lorna Ngo PA-C, SA, her assistance consisted of assistance with retraction, positioning and closing of the wound No qualified resident physicians were available to participate in the case. PROCEDURE: RIGHT TOTAL HIP REPLACEMENT Procedure(s) (LRB): ARTHROPLASTY REPLACE JOINT TOTAL HIP (Right) Anesthesia: Choice - Anesthesia Consult Preop Diagnosis: Pre-Op Diagnosis Codes: * Primary osteoarthritis of right hip [M16.11] Postop Diagnosis: Same as Pre-Op Diagnosis Codes: * Primary osteoarthritis of right hip [M16.11] BMI: Estimated body mass index is 34.73 kg/m? as calculated from the following: Height as of 09/10/21: 180.3 cm (5' 11 ). Weight as of 09/10/21: 112.9 kg (249 lb). OPERATIVE INDICATIONS: This is a 71 year old year old male with osteoarthritis of the right hip. He was having severe pain in the groin/thigh. Nonoperative management has been exhausted. The decision was made to proceed with a right total hip arthroplasty. Risks, benefits, and alternatives were discussed. He expressed understanding and consented to the procedure as outlined above. The patient was seen by [facility] Medicine for pre-operative optimization. Kelsey-operative blood management and the potential for blood transfusion were discussed with risks and options clearly outlined. The patient has consented to the use of banked allogenic blood if medically necessary. IMPLANTS: [employer] Total Hip System SIZE TYPE Acetabulum 52mm Trident 2 Screws 0 Polyethylene 42mm Dual mobility Femur 9 standard Accolade 2 Femoral Head 28 -4 neck Metal OPERATIVE FINDINGS: There was complete loss of cartilaginous surface from the femoral head and acetabular surface with lipping osteophytes. OPERATIVE PROCEDURE: The patient was identified and brought into the Operating Room by the anesthesia and nursing team. Anesthesia was successfully performed. The patient was then positioned supine on the operating room table with a bump under the right hip. Intravenous antibiotic prophylaxis dosing was confirmed. The right lower extremity was then prepped and draped in the usual sterile fashion with Chloraprep scrub. Tranexamic acid was given for blood conservation. A surgical time-out was performed immediately preceding the incision with all personnel in the operating room; the patient identity was again confirmed, the surgical site and extremity were identified and confirmed, X-rays were reviewed, and availability of the appropriate surgical equipment was established. The hip was approached through a modified Peck-Lorenzo approach. Dissection was carried down onto the anterior hip capsule, which was opened in an H fashion and excised. The neck of the femur was identified. Large osteophytes were osteotomized and removed from the anterior portion of the acetabulum. We then osteotomized the neck of the femur at a 45- degree angle of the AP plane approximately half a fingerbreadth above the lesser trochanter. The head was then brought out in pieces. We then did a total capsulectomy along with a release of the short external rotators allowing us to expose the acetabulum in our standard 4 quadrant retraction method. We reamed the acetabulum to a 52 mm size. We got into good cancellous bone with good circumferential cortical bone. We removed osteophytes from the rim of the acetabulum. A 52 mm shell Trident 2 cup was then put into the acetabulum at a 60-degree angle to the AP plane with 15 degrees of anteversion. The hip was then adducted and externally rotated and the proximal femur was brought into the wound and we rasped the stem of the femur to size 9. A 9 Accolade 2 stem was tapped into place with excellent fit. We chose a -4 neck and a 28 mm inner diameter, and a 42 mm outer diameter poly ball. The hip was reduced, we had excellent abductor and iliopsoas tone. Wound was then copiously irrigated. We injected circumferentially about the incisional area with our Exparel pericapsular block. Instrument and sponge count was completed and confirmed correct. The would was then closed in layers and a sterile dressing was applied. The patient was stable to PACU. POSTOPERATIVE MANAGEMENT: Patient is weightbearing as tolerated. They will receive appropriate DVT prophylaxis, appropriate pain medications and 24 hours of appropriate antibiotic for infection prophylaxis. SPECIMENS: The femoral head, neck and synovium. EBL: 100 cc DRAINS: None. COUNTS: Correct. COMPLICATIONS: None. Operative Time: * Missing case tracking time(s) * I (more content not included)... Normal [facility] THERAPY NTon 10-07-2021 THERAPY NT HNO ID: [id number] Author: Damari Ordoñez, PT Service: Physical Therapy Author Type: Physical Therapist Type: Therapy (PT/OT/Speech/Resp) Filed: 10/07/2021 5:26 PM Note Text: Physical Therapy Evaluation SERVICE DATE: 10/07/2021 SERVICE TIME: 1633 to 1714 ROOM: [place] [address] Recommended Discharge Disposition: Outpatient Physical Therapy Recommended Discharge Disposition Comments: pt reports he has outpt PT appointment on Wednesday Anticipated Discharge Needs: Physical Assist at Home Physical Assist at Home for: Cleaning;Laundry;Meals ;Stairs;Self Care;Shopping;Transpor tation PT 6 Clicks Score: 17 - pt tolerated session well - anticipate home tomorrow after am session. Precautions/Activity Restrictions: Total Hip Replacement;Weight Bearing Restrictions;Fall Risk;Lines/Tubes/Drain s Extremity With Weight Bearing Restricted: Right Lower Extremity Total Hip Replacement Precautions: Posterior ( modified peck lorenzo approach per surgery report) Current Hospital Course: s/p LANDY R - Dr. Nova Reason for Hospital Admission: LANDY Relevant Past Medical History: bone spurs L shoulder, elevated PSA, HLD, kidney stones, Bilat TKA's Response to Therapy Interventions: Good participation in activities, Pain Continue skilled needs due to: Functional mobility/skill impairments, Safety concerns Physical Therapy Problem List: Edema;Pain;Safety Deficits;Decreased Activity Tolerance;Decreased Range Of Motion;Impaired Self Care;Decreased Strength;Functional Mobility Impairment;Balance Impaired;Sensory Deficit;Decreased Skin Integrity Treatment Interventions: Education;Joint Mobility;Strengthening ;Functional Mobility Training Plan for next visit: Family instruction, Stairs training Home Environment Patient Lives With: Spouse Assistance Available: 24 Hour Entry To Home: Stairs;With Rail Number Of Stairs Into Home: 6 Number Of Stairs To Bed/Bath: 15 Stairs to Bed/Bath with: Unilateral Rail Tub/Shower Type: tub with shower - has a grab bar not installed Laundry: completes Equipment Owned: Cane;Wheeled Walker Prior Functional Level: Within Functional Limits Prior Functional Level Comments: indep without device - indep wtih ADL's and iADL's . doesn't sit in low chairs since TKA bilaterally Patient Report: pt reports need to void, but feels shy with urinating with staff in room. Pt reports he is unable to void while seated. Offered apology, but educated pt I could not leave him standing alone in room to urinate. CURRENT FUNCTIONAL STATUS: Most recent performance Current Functional Mobility Assist Level Additional Information Rolling Supine to Sit Minimal Assistance (at RLE) Sit to Supine Scooting Stand By Assistance Sit to Stand Minimal Assistance;Contact Guard Assistance Stand to Sit Minimal Assistance;Contact Guard Assistance Bed to Chair Toilet/Commode Gait Contact Guard Assistance Gait Device: Wheeled Walker;With Wheelchair Follow Gait Distance (feet): 100' Stairs Curb Step Car Transfer Blank ochoa indicate activity not attempted General Deviations/Observation s: Ana Lilia decreased;Step length decreased;Flexed trunk posture [facility] Walk 25 feet or more Learning/Educational Needs: Discharge Plan;Equipment;Functio nal Activities/Mobility;Pl an of Care;Changes in Plan of Care;Precautions;Rehab ilitation Techniques and Procedures;Safety Goals for Plan of Care: Patient /Caregiver Goals: Walk;Go Home;Care For Self Goals: Patient will demonstrate understanding of importance of mobility during hospital stay and resolve all functional needs identified. Rehab Potential: Good Patient will be discontinued from Physical Therapy when no further skilled needs are identified in this setting. PLAN: PT Frequency: One additional visit Plan of Care developed with: Patient;Caregiver;Fami ly TREATMENT INTERVENTIONS: Therapy Diagnosis: Reduced mobility-other;Decreas ed activities of daily living (ADL);Muscle Weakness (generalized);Unsteadi ness on feet;Abnormalities of gait and mobility-other Interventions Provided: Evaluation;Therapeutic Exercise (41661);Gait Training (33630) $ Evaluation-Low (69303) Billed Units: 1 unit Therapeutic Exercise (42311) Treatment Minutes: 15 $ Therapeutic Exercise (37820) Billed Units: 1 unit Pt instructed in HEP for LANDY Pt provided with written HEP/reviewed with pt /family Goals and purpose of each exercise explained to pt /family Ankle pumps Quadricep Set Gluteal Set Pt instructed to perform AP, QS, GS 10x/hour while awake. Review of post op restrictions including no bending past 90 degree, twisting/pivoting and no crossing legs/mid-line. Also reviewed avoiding running/jumping and instructed to use caution when exiting SUV's (to avoid excessive force). Demonstrated visually how pt can use extended UE's on thighs to assess hip flexion - and if hands extend past knees, pt has flexed too far. Pt verbalized understand (more content not included)... Normal [facility] XR PELVIS 1V APon 10-07-2021 XR PELVIS 1V AP * * *Final Report* * * DATE OF EXAM: Oct 07 2021 12:33PM VHX 5239 - XR PELVIS 1V AP / PROCEDURE REASON: Post-operative / post-procedure assessment, asymptomatic * * * * Physician Interpretation * * * * HISTORY: Pain TECHNIQUE: Portable frontal view of the pelvis was obtained. RESULT: There is right total hip replacement. There is mild subcutaneous emphysema about the right hip. The prosthesis appears grossly in place. There are radiation seeds within the prostate. IMPRESSION: STATUS POST RIGHT TOTAL HIP REPLACEMENT. School Child Care Attendant: TAPAN Transcribe Date/Time: Oct 07 2021 12:45P Dictated by : LISETH MAN MD This examination was interpreted and the report reviewed and electronically signed by: LISETH MAN MD on Oct 07 2021 12:46PM EST [id number] [facility] SARS-CoV-2 RNA Resp Ql [facility] 10-04-2021 SARS-CoV-2 (COVID-19) RNA [facility]+probe Ql (Resp) COVID 19 RESULT: SARS-CoV-2 (Agent of COVID-19) Not Detected by RT-PCR or equivalent method. This test was developed and its performance characteristics determined by [facility]'s [facility] [place]. This test has been authorized by FDA under an Emergency Use Authorization (EUA). This test has been validated in accordance with the FDA's Guidance Document Policy for Diagnostics Testing in Laboratories Certified to Perform High Complexity Testing under CLIA prior to Emergency use Authorization for Coronavirus Disease 2019 during the Public Health Emergency issued on August 12, 2019. Test performed by [facility], [facility] [place], [address] [place] [address]. Normal [facility] Comment on above: Performed By: #### 9 4500-6 ####[facility] LABCLIA [id number] [place] [address] [place] [facility] [place] Comprehensive Metabolic Pane rufnio 09-26-2021 Albumin [Mass/Vol] 4.6 g/dL Normal 3.6-5.1 [facility] Trouble Shooter Comment on above: Performed By: #### C MP #### [facility] [address] [place], [place] [id number] Albumin/Globulin [Mass ratio] 2.6 {ratio} High 1.0-2.5 [place] Trouble Shooter Comment on above: Performed By: #### C MP #### [facility] [address] [place], [place] [id number] ALP [Catalytic activity/Vol] 79 U/L Normal 40-129 [facility] Comment on above: Performed By: #### C MP #### [facility] [address] [place], [place] [id number] ALT [Catalytic activity/Vol] 26 U/L Normal 9-46 [facility] Specialist Comment on above: Result Comment: 05/14 Female reference range changed. Performed By: #### C MP #### [facility] [address] [place], [place] [id number] Anion gap [Moles/Vol] 20 mmol/L Normal 12-20 [facility] Comment on above: Result Comment: Effe ctive 06/19/2019 reference range changed. Performed By: #### C MP #### [facility] [address] [place], [place] [id number] AST [Catalytic activity/Vol] 24 U/L Normal 10-40 [facility] Comment on above: Performed By: #### C MP #### [facility] [address] [place], [place] [id number] Bilirubin [Mass/Vol] 0.69 mg/dL Normal 0.30-1.20 [facility] Comment on above: Performed By: #### C MP #### [facility] [address] [place], [place] [id number] BUN/CREA 26 Ratio High 6-22 [facility] Comment on above: Performed By: #### C MP #### [facility] [address] [place], [place] [id number] Calcium [Mass/Vol] 10.1 mg/dL Normal 8.6-10.2 [facility] Comment on above: Performed By: #### C MP #### [facility] [address] [place], [place] [id number] Chloride [Moles/Vol] 100 mmol/L Normal 98-107 [facility] Comment on above: Performed By: #### C MP #### [facility] [address] [place], [place] [id number] CO2 [Moles/Vol] 22 mmol/L Normal 20-31 [place] Trouble Shooter Comment on above: Performed By: #### C MP #### [facility] [address] [place], [place] [id number] Creatinine [Mass/Vol] 0.9 mg/dL Normal 0.7-1.4 [facility] Specialist Comment on above: Performed By: #### C MP #### [facility] [address] [place], [place] [id number] eGFRAA 96 mL/min/1.73m2 Normal >60 [facility] Comment on above: Performed By: #### C MP #### [facility] [address] [place], [place] [id number] eGFRNAA 79 mL/min/1.73m2 Normal >60 [facility] Specialist Comment on above: Performed By: #### C MP #### [facility] [address] [place], [place] [id number] Globulin (S) [Mass/Vol] 1.8 g/dL Low 1.9-3.7 Nina [facility] Comment on above: Performed By: #### C MP #### [facility] [address] [place], [place] [id number] Glucose [Mass/Vol] 88 mg/dL Normal 65-99 [facility] Trouble Shooter Comment on above: Result Comment: For FASTING Glucose --- ADA reference ranges: Normal 65-99 mg/dl Prediabetes 100-125 Diabetes >/= 126 Performed By: #### C MP #### [facility] [address] [place], [place] [id number] Potassium [Moles/Vol] 4.4 mmol/L Normal 3.5-5.5 [facility] Specialist Comment on above: Performed By: #### C MP #### [facility] [address] [place], [place] [id number] Protein [Mass/Vol] 6.4 g/dL Normal 6.1-8.1 [facility] Trouble Shooter Comment on above: Performed By: #### C MP #### [facility] [address] [place], [place] [id number] Sodium [Moles/Vol] 137 mmol/L Normal 135-146 [facility] Comment on above: Performed By: #### C MP #### [facility] [address] [place], [place] [id number] Urea nitrogen [Mass/Vol] 24 mg/dL Normal 7-25 [facility] Specialist Comment on above: Performed By: #### C MP #### [facility] [address] [place], [place] [id number] Hemoglobin A1Con 09-26-2021 EAG 105.41 Normal [facility] Specialist Comment on above: Performed By: #### A 1C #### [facility] [address] [place], [place] [id number] HbA1c (Bld) [Mass fraction] 5.3 % Normal 4.0-6.0 [facility] Specialist Comment on above: Performed By: #### A 1C #### [facility] [address] [place], [place] [id number] Microalbumin (with Creat)on 09-26-2021 mALB <1.2 Low [facility] Specialist Comment on above: Result Comment: Unab le to calculate mALB/Crea ratio, mALB is <1.2 mg/dL mALB reference range not established. Performed By: #### m ALBC #### [facility] [address] [place], [place] [id number] UCREA 148 mg/dL Normal 39-259 [facility] Trouble Shooter Comment on above: Performed By: #### m ALBC #### [facility] [address] [place], [place] [id number] Q - URINALYSIS,COMPLETEon Appearance (U) CLEAR Normal CLEAR [facility] Specialist Comment on above: Order Comment: [facility] performed at: [facility], [address] [facility], [address] [place] [address], [place], [address], Digital Forensic Analyst: Ottoniel Best MD [facility] Collection Date/Time: [facility] Results Received Date/Time: [facility] Reported Date/Time: Performed By: #### 3 4F #### [facility] Default [address] [place] [address] BACTERIA NONE SEEN Normal NONE SEEN [facility] Trouble Shooter Comment on above: Order Comment: [facility] performed at: [employer] [employer] [facility], [address] [place] , [address] [place] [address], [address] [place] [address], Digital Forensic Analyst: Ottoniel Best MD [facility] Date/Time: [facility] Results Received Date/Time: [facility] Reported Date/Time: Performed By: #### 3 4F #### [facility] Default [address] [place] [address] Bilirubin Ql (U) Negative Normal NEGATIVE [facility] Specialist Comment on above: Order Comment: [facility] performed at: [employer] [employer] [facility], [address] [place] , [address] [place] [address], [address] [place] [address], Digital Forensic Analyst: Ottoniel Best MD [facility] Date/Time: [facility] Results Received Date/Time: [facility] Reported Date/Time: Performed By: #### 3 4F #### [facility] Default [address] [place] [address] Color (U) YELLOW Normal YELLOW [facility] Trouble Shooter Comment on above: Order Comment: [facility] performed at: [employer] [employer] [facility], [address] [place] , [address] [place] [address], [address] [place] [address], Digital Forensic Analyst: Ottoniel Best MD [facility] Date/Time: [facility] Results Received Date/Time: [facility] Reported Date/Time: Performed By: #### 3 4F #### [facility] Default [address] [place] [address] Glucose Ql (U) Negative Normal NEGATIVE [facility] Trouble Shooter Comment on above: Order Comment: [facility] performed at: [employer] [employer], [address] [place] , [address] [place] [address], [address] [place] [address], Digital Forensic Analyst: Ottoniel Best MD [facility] Date/Time: [facility] Results Received Date/Time: [facility] Reported Date/Time: Performed By: #### 3 4F #### [facility] Default [address] [place] [address] HYALINE CAST NONE SEEN Normal NONE SEEN [facility] Trouble Shooter Comment on above: Order Comment: [facility] performed at: [facility], [employer] [facility], [address] [facility], [address] [place] [address], [address] [place] [address], Digital Forensic Analyst: Ottoniel Best MD [facility] Date/Time: [facility] Results Received Date/Time: [facility] Reported Date/Time: Performed By: #### 3 4F #### [facility] Default [address] [place] [address] Ketones Ql (U) Negative Normal NEGATIVE [facility] Trouble Shooter Comment on above: Order Comment: [facility] performed at: [facility], [employer] [facility], [address] [place] , [address] [place] [address], [address] [place] [address], Digital Forensic Analyst: Ottoniel Best MD [facility] Date/Time: [facility] Results Received Date/Time: [facility] Reported Date/Time: Performed By: #### 3 4F #### [facility] Default [address] [place] [address] Leukocyte esterase Test strip Ql (U) Negative Normal NEGATIVE [facility] Trouble Shooter Comment on above: Order Comment: [facility] performed at: [facility], [employer] [facility], [address] [facility], [address] [place] [address], [address] [place] [address], Digital Forensic Analyst: Ottoniel Best MD [facility] Date/Time: [facility] Results Received Date/Time: [facility] Reported Date/Time: Performed By: #### 3 4F #### [facility] Default [address] [place] [address] Nitrite Ql (U) Negative Normal NEGATIVE [facility] Trouble Shooter Comment on above: Order Comment: [facility] performed at: [facility], [employer] [facility], [address] [facility], [address] [place] [address], [address] [place] [address], Digital Forensic Analyst: Ottoniel Best MD [facility] Date/Time: [facility] Results Received Date/Time: [facility] Reported Date/Time: Performed By: #### 3 4F #### [facility] Default [address] [place] [address] OCCULT BLOOD Negative Normal NEGATIVE [facility] Trouble Shooter Comment on above: Order Comment: [facility] performed at: [employer], [employer], [address] [place] [address], [address] [place] [address], [address] [place] [address], Digital Forensic Analyst: Ottoniel Best MD [facility] Date/Time: [facility] Results Received Date/Time: [facility] Reported Date/Time: Performed By: #### 3 4F #### [facility] Default [address] [place] [address] pH (U) 5.5 [pH] Normal 5.0-8.0 [facility] Trouble Shooter Comment on above: Order Comment: [facility] performed at: [employer], [employer] [facility], [address] [facility], [address] [place] [address], [address] [place] [address], Digital Forensic Analyst: Ottoniel Best MD [facility] Date/Time: [facility] Results Received Date/Time: [facility] Reported Date/Time: Performed By: #### 3 4F #### [facility] Default [address] [place] [address] Protein Ql (U) Negative Normal NEGATIVE [facility] Trouble Shooter Comment on above: Order Comment: [facility] performed at: [employer], [facility] [facility], [address] [facility], [address] [place] [address], [address] [place] [address], Digital Forensic Analyst: Ottoniel Best MD [facility] Date/Time: [facility] Results Received Date/Time: [facility] Reported Date/Time: Performed By: #### 3 4F #### [facility] Default [address] [place] [address] RBC NONE SEEN Normal < OR = 2 [facility] Trouble Shooter Comment on above: Order Comment: [facility] performed at: [employer], [facility] [facility], [address] [facility], [address] [place] [address], [address] [place] [address], Digital Forensic Analyst: Ottoniel Best MD [facility] Date/Time: [facility] Results Received Date/Time: [facility] Reported Date/Time: Performed By: #### 3 4F #### [facility] Default [address] [place] [address] Specific gravity (U) [Rel density] 1.022 Normal 1.001-1.035 [facility] Trouble Shooter Comment on above: Order Comment: [facility] performed at: [employer], [facility] [facility], [address] [place] [address], [address] [place] [address], [address] [place] [address], Digital Forensic Analyst: Ottoniel Best MD [facility] Date/Time: [facility] Results Received Date/Time: [facility] Reported Date/Time: Performed By: #### 3 4F #### [facility] Default [address] [place] [address] SQUAMOUS EPITHELIAL CELLS NONE SEEN Normal < OR = 5 [facility] Trouble Shooter Comment on above: Order Comment: [facility] performed at: [employer], [facility] [facility], [address] [place] [address], [address] [place] [address], [address] [place] [address], Digital Forensic Analyst: Ottoniel Best MD [facility] Date/Time: [facility] Results Received Date/Time: [facility] Reported Date/Time: Performed By: #### 3 4F #### [facility] Default [address] [place] [address] WBC NONE SEEN Normal < OR = 5 [facility] Trouble Shooter Comment on above: Order Comment: [facility] performed at: [employer], [employer] [facility], [address] [facility], [address] [place] [address], [address] [place] [address], Digital Forensic Analyst: Ottoniel Best MD [facility] Date/Time: [facility] Results Received Date/Time: [facility] Reported Date/Time: Performed By: #### 3 4F #### [facility] Default [address] [place] [address] Bacteria Ur Culton 2 Bacteria identified Cx Nom (U) CULTURE, URINE: No growth (<1,000 CFU/ml) Normal [facility] Comment on above: Performed By: #### 6 30-4 ####[facility] LABCLIA [id number] [place] [address] [place] Basic metabolic 2000 panelon 09-10-2021 Anion gap [Moles/Vol] 10 mmol/L Normal 9-18 [facility] Comment on above: Order Comment: Speci men Type: BLOOD SPECIMENOrdering Facility: [facility] Address: [address] [place] [address] Performed By: #### 2 4321-2 ####[facility]CL[facility] [id number] [place] [address] [place] Calcium [Mass/Vol] 10.0 mg/dL Normal 8.5-10.2 [facility] Comment on above: Order Comment: Speci men Type: BLOOD SPECIMENOrdering Facility: [facility] Address: [address] [place] [address] Performed By: #### 2 4321-2 ####[facility]CL[facility] [id number] [place] [address] [place] Chloride [Moles/Vol] 101 mmol/L Normal 97-105 [facility] Comment on above: Order Comment: Speci men Type: BLOOD SPECIMENOrdering Facility: [facility] Address: [address] [place], [place] [address] Performed By: #### 2 4321-2 ####[facility]CLIA [id number] [place] [address] [place] CO2 [Moles/Vol] 27 mmol/L Normal 22-30 [facility] Comment on above: Order Comment: Speci men Type: BLOOD SPECIMENOrdering Facility: [facility] Address: [address] [address] Performed By: #### 2 4321-2 ####[facility] [id number] [address] [place] [facility] Creatinine [Mass/Vol] 1.12 mg/dL Normal 0.73-1.22 [facility] Comment on above: Order Comment: Speci men Type: BLOOD SPECIMENOrdering Facility: [facility] Address: [address] [place] [address] Performed By: #### 2 4321-2 ####[facility] [id number] [address] STATES OF [facility] ESTIMATED GLOMERULAR FILTRATION RATE 70 mL/min/1.73m??? Normal >=60 [facility] Comment on above: Order Comment: Césari men Type: BLOOD SPECIMENOrdering Facility: [facility] Address: [address] [place] [address] Result Comment: Pam mated Glomerular Filtration Rate (eGFR) is calculated using the 2020 CKD-EPI creatinine equation. This equation utilizes serum creatinine, sex, and age as parameters. The creatinine assay has traceable calibration to isotope dilution-mass spectrometry. Refer to KDIGO guidelines for clinical interpretation. In patients with unstable renal function, e.g. those with acute kidney injury, the eGFR may not accurately reflect actual GFR. Performed By: #### 2 4321-2 ####[facility] LABIA [id number] [address] [place] Glucose [Mass/Vol] 96 mg/dL Normal 74-99 [facility] Comment on above: Order Comment: Speci men Type: BLOOD SPECIMENOrdering Facility: [facility] Address: [address] [place] [address] Result Comment: The [place] Diabetes Association (ADA) provides guidance for cutoff values for fasting glucose and random glucose. The ADA defines fasting as no caloric intake for at least 8 hours. Fasting plasma glucose results between 100 to 125 mg/dL indicate increased risk for diabetes (prediabetes). Fasting plasma glucose results greater than or equal to 126 mg/dL meet the criteria for diagnosis of diabetes. In the absence of unequivocal hyperglycemia, results should be confirmed by repeat testing. In a patient with classic symptoms of hyperglycemia or hyperglycemic crisis, random plasma glucose results greater than or equal to 200 mg/dL meet the criteria for diagnosis of diabetes. Reference: Standards of Medical Care in Diabetes 2016, [place] Diabetes Association. Diabetes Care. 2016.39(Suppl 1). Performed By: #### 2 4321-2 ####[facility] [id number] [place] [address] [place] Potassium [Moles/Vol] 4.6 mmol/L Normal 3.7-5.1 [facility] Comment on above: Order Comment: Jose David mina Type: BLOOD SPECIMENOrdering Facility: [facility] Address: [address] [place] [address] Performed By: #### 2 4321-2 ####[facility] LABIA [id number] [place] [address] [place] Sodium [Moles/Vol] 138 mmol/L Normal 136-144 [facility] Comment on above: Order Comment: Jose David mina Type: BLOOD SPECIMENOrdering Facility: [facility] Address: [address] [place] [address] Performed By: #### 2 4321-2 ####[facility] LABIA [id number] [place] [address] [place] Urea nitrogen [Mass/Vol] 19 mg/dL Normal 9-24 [facility] Comment on above: Order Comment: Césari men Type: BLOOD SPECIMENOrdering Facility: [facility] Address: [address] [place] [address] Performed By: #### 2 4321-2 ####[facility]CL[facility] [id number] [place] [address] [place] CBC W Auto Differential pane l (Bld)on 09-10-2021 Basophils (Bld) [#/Vol] 0.04 10*3/uL Normal <0.11 [facility] Comment on above: Order Comment: Speci men Type: BLOOD SPECIMENOrdering Facility: [facility] Address: [address] [place], [place] [address] Performed By: #### 5 7021-8 ####[facility] LABCLIA [id number] [facility] [place] [address] [place] Basophils/100 WBC (Bld) 0.6 % Normal [facility] Comment on above: Order Comment: Speci men Type: BLOOD SPECIMENOrdering Facility: [facility] Address: [address] [place], [place] [address] Performed By: #### 5 7021-8 ####[facility]CL[facility] [id number] [place] [address] [place] Differential cell count method Nom (Bld) Auto Normal [facility] Comment on above: Order Comment: Speci men Type: BLOOD SPECIMENOrdering Facility: [facility] Address: [address] [place], [place] [address] Performed By: #### 5 7021-8 ####[facility]CL[facility] [id number] [place] [address] [place] Eosinophils (Bld) [#/Vol] 0.27 10*3/uL Normal <0.46 [facility] Comment on above: Order Comment: Speci men Type: BLOOD SPECIMENOrdering Facility: [facility] Address: [address] [place], [place] [address] Performed By: #### 5 7021-8 ####[facility]CL[facility] [id number] [place] [address] [place] Eosinophils/100 WBC (Bld) 3.8 % Normal [facility] Comment on above: Order Comment: Speci men Type: BLOOD SPECIMENOrdering Facility: [facility] Address: [address] [place], [place] [address] Performed By: #### 5 7021-8 ####[facility] [id number] [address] [place] Erythrocyte distribution width (RBC) [Ratio] 12.8 % Normal 11.5-15.0 [facility] Comment on above: Order Comment: Speci men Type: BLOOD SPECIMENOrdering Facility: [facility] Address: [address] [place], [place] [address] Performed By: #### 5 7021-8 ####[facility] LABIA [id number] [address] [place] Hematocrit (Bld) [Volume fraction] 43.5 % Normal 39.0-51.0 [facility] Comment on above: Order Comment: Speci men Type: BLOOD SPECIMENOrdering Facility: [facility] Address: [address] [place], [place] [address] Performed By: #### 5 7021-8 ####[facility] LABIA [id number] [place] [address] [place] Hemoglobin (Bld) [Mass/Vol] 14.4 g/dL Normal 13.0-17.0 [facility] Comment on above: Order Comment: Speci men Type: BLOOD SPECIMENOrdering Facility: [facility] Address: [address] [place], [place] [address] Performed By: #### 5 7021-8 ####[facility] LABIA [id number] [place] [address] [place] IMMATURE GRAN % 0.7 % Normal [facility] Comment on above: Order Comment: Speci men Type: BLOOD SPECIMENOrdering Facility: [facility] Address: [address] [place] [address] Performed By: #### 5 7021-8 ####[facility] LABIA [id number] [place] [address] [place] IMMATURE GRAN ABS 0.05 k/uL Normal <0.10 [facility] Comment on above: Order Comment: Speci men Type: BLOOD SPECIMENOrdering Facility: [facility] Address: [address] [place] [address] Performed By: #### 5 7021-8 ####[facility] [id number] [place] [address] [place] Lymphocytes (Bld) [#/Vol] 1.20 10*3/uL Normal 1.00-4.00 [facility] Comment on above: Order Comment: Speci men Type: BLOOD SPECIMENOrdering Facility: [facility] Address: [address] [place] [address] Performed By: #### 5 7021-8 ####[facility]CL[facility] [id number] [address] STATES OF [facility] Lymphocytes/100 WBC (Bld) 16.7 % Normal [facility] Comment on above: Order Comment: Speci men Type: BLOOD SPECIMENOrdering Facility: [facility] Address: [address] [place] [address] Performed By: #### 5 7021-8 ####[facility]CL[facility] [id number] [address] [place] MCH (RBC) [Entitic mass] 32.4 pg Normal 26.0-34.0 [facility] Comment on above: Order Comment: Speci men Type: BLOOD SPECIMENOrdering Facility: [facility] Address: [address] [place], [place] [address] Performed By: #### 5 7021-8 ####[facility] [id number] [address] [place] MCHC (RBC) [Mass/Vol] 33.1 g/dL Normal 30.5-36.0 [facility] Comment on above: Order Comment: Speci men Type: BLOOD SPECIMENOrdering Facility: [facility] Address: [address] [place], [place] [address] Performed By: #### 5 7021-8 ####[facility] LABIA [id number] [address] [place] MCV (RBC) [Entitic vol] 98.0 fL Normal 80.0-100.0 C [facility] Comment on above: Order Comment: Speci men Type: BLOOD SPECIMENOrdering Facility: [facility] Address: [address] [place], [place] [address] Performed By: #### 5 7021-8 ####[facility] [facility] [id number] [place] [address] [place] Monocytes (Bld) [#/Vol] 0.85 10*3/uL Normal <0.87 [facility] Comment on above: Order Comment: Speci men Type: BLOOD SPECIMENOrdering Facility: [facility] Address: [address] [place], [place] [address] Performed By: #### 5 7021-8 ####[facility] [id number] [address] [place] Monocytes/100 WBC (Bld) 11.9 % Normal C [facility] Comment on above: Order Comment: Speci men Type: BLOOD SPECIMENOrdering Facility: [facility] Address: [address] [place], [place] [address] Performed By: #### 5 7021-8 ####[facility] [id number] [place] [address] [place] Neutrophils (Bld) [#/Vol] 4.76 10*3/uL Normal 1.45-7.50 [facility] Comment on above: Order Comment: Speci men Type: BLOOD SPECIMENOrdering Facility: [facility] Address: [address] [place] [address] Performed By: #### 5 7021-8 ####[facility] [id number] [place] [address] [place] Neutrophils/100 WBC (Bld) 66.3 % Normal [facility] Comment on above: Order Comment: Speci men Type: BLOOD SPECIMENOrdering Facility: [facility] Address: [address] [place], [place] [address] Performed By: #### 5 7021-8 ####[facility] [id number] [place] [address] [place] Nucleated RBC (Bld) [#/Vol] 10*3/uL Normal <0.01 [facility] Comment on above: Order Comment: Speci men Type: BLOOD SPECIMENOrdering Facility: [facility] Address: [address] [place], [place] [address] Performed By: #### 5 7021-8 ####[facility] [id number] [place] [address] [place] Nucleated RBC/100 WBC (Bld) [Ratio] 0.0 /100 WBC Normal [facility] Comment on above: Order Comment: Speci men Type: BLOOD SPECIMENOrdering Facility: [facility] Address: [address] [place], [place] [address] Performed By: #### 5 7021-8 ####[facility] [id number] [place] [address] [place] Platelet mean volume (Bld) [Entitic vol] 11.2 fL Normal 9.0-12.7 [facility] Comment on above: Order Comment: Speci men Type: BLOOD SPECIMENOrdering Facility: [facility] Address: [address] [place] [address] Performed By: #### 5 7021-8 ####[facility] [id number] [place] [address] [place] Platelets (Bld) [#/Vol] 265 10*3/uL Normal 150-400 [facility] Comment on above: Order Comment: Speci men Type: BLOOD SPECIMENOrdering Facility: [facility] Address: [address] [place] [address] Performed By: #### 5 7021-8 ####[facility] [id number] [place] [address] [place] RBC (Bld) [#/Vol] 4.44 10*6/uL Normal 4.20-6.00 [facility] Comment on above: Order Comment: Speci men Type: BLOOD SPECIMENOrdering Facility: [facility] Address: [address] [place] [address] Performed By: #### 5 7021-8 ####[facility] [id number] [place] [address] [place] WBC (Bld) [#/Vol] 7.17 10*3/uL Normal 3.70-11.00 [facility] Comment on above: Order Comment: Speci men Type: BLOOD SPECIMENOrdering Facility: [facility] Address: [address] [place] [address] Performed By: #### 5 7021-8 ####[facility] [id number] [place] [address] [place] CNOVon 09-10-2021 CNOV Office Visit (LOORRM ) MEERA MCKOY ([id number]) 1950 M Date Time Provider Department 09/10/21 9:30 AM [facility] During your visit today, we recorded the following information about you: Weight Height 110.7 kg 1.803 m Lorna Ngo PA-C 09/10/2021 12:03 PM Signed CONSULT ORTHOPAEDIC: HIP PRIMARY CARE PHYSICIAN: Mona Reese, DO, DO REFERRING PROVIDER: Gordo Nova II [id number] [facility] [address] ASSESSMENT AND PLAN: Impression: Right Hip Severe Degenerative Osteoarthritis, Primary Meera Mckoy has radiograph and physical exam evidence of degenerative joint disease and wishes to pursue surgery. This patient appears to have sufficient symptoms to warrant surgical intervention and is an appropriate candidate for right Primary Total Hip Arthroplasty as evidenced by six months of unsuccessful non-operative treatment as outlined in the HPI below and progressive symptoms. Progressive symptoms include: Pain impacting sleep or causing fatigue Pain impacting work Pain worsened by weight bearing Pain effecting living situation Pain limiting ability to stay fit and healthy Unable to ambulate 2 blocks without significant pain and dysfunction. We had a lengthy discussion regarding the risk and benefit of surgery, the alternatives, limitations and personnel involved. These included but were not limited to infection, persistent pain, instability, nerve injury, blood clots, and medical complications. We also discussed the pre-operative course, surgery itself and rehabilitation. Kelsey-operative blood management and transfusion issues were discussed, and options clearly outlined. The patient has consented to the use of the banked allogenic blood if medically necessary. The patient has elected to schedule surgery at this time or intends to call the office with a surgical date. Shared decision making occurred while obtaining informed consent. The patient will be scheduled for a pre-operative education class at which time they will have their nasal swab completed and will be given CHG cloths along with the verbal and written instructions for their use. Patient has been instructed and has been scheduled or will call to schedule attendence in one of the total joint perioperative classes offered prior to proceeding with LANDY.. The patient has been ordered: No orders placed today. CONSULTS: Patient does not require consults for optimization at this time. ACTIVE PROBLEM LIST Torn Meniscus Low Back Pain Radiating to Right Leg High Cholesterol Ac (Acromioclavicular) Joint Bone Spurs Shoulder Pain Elevated Psa Sensory Peripheral Neuropathy Osteoarthrosis, Unspecified Whether Generalized Or Localized, Lower Leg Malignant Neoplasm of Prostate (Hcc) Urge Incontinence Urge Incontinence of Urine Bph (Benign Prostatic Hyperplasia) History of Prostate Cancer Kidney Stone SUBJECTIVE CHIEF COMPLAINT: Hip Pain HPI: Meera Mckoy is a 71 year old patient here for evaluation and management of Right hip pain.Meera Mckoy has had progressive problems with the hip(s) constantly over the past 1 year(s) interfering with activities which include walking 2 blocks, gardening, 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 The problem began limiting activities 1-3 years ago. Currently the pain in the joint is rated at 1 out of 10 with minimal activity. The pain is intermittent and is located in the right hip, groin, outer aspect of the hip, thigh and back pain . The pain is described as aching, soreness and stiffness. Relieving factors include ambulatory device. There is no specific incident that brought about this pain. Meera Mckoy has no additional complaints. FUNCTIONAL STATUS: Walk indoors, such as around the house (1.75 METs) Do light work around the house, such as dusting or washing dishes (2.70 METs) Take care of self, that is eating, dressing, bathing, using the toilet (2.75 METs) Walk a block or two on level ground (2.75 METs) Do moderate work around the house such as vacuuming, sweeping floors, or carrying in groceries (3.50 METs) Do yardwork, such as raking leaves, weeding,or pushing a power mower (4.50 METs) Have sexual relations (5.25 METs) Climb a flight of stairs or walk up a hill (5.50 METs) Participate in moderate recreational activities, such as golf, bowling, dancing, doubles tennis, or throwing a baseball or football (6.00 METs) Participate in strenuous sport, such as swimming, singles tennis, football, basketball, or skiing (7.50 METs) Do heavy work around the house, such as scrubbing floors, lifting or moving heavy furniture (8.00 METs) (more content not included)... Normal [facility] HGB A1Con 09-10-2021 Average glucose Estimated from glycated hemoglobin (Bld) [Mass/Vol] 100 mg/dL Normal [facility] Comment on above: Order Comment: Speci men Type: BLOOD SPECIMENOrdering Facility: [facility] Address: [address] [place] [address] Result Comment: eAG: (Estimated average glucose) is a calculated value from HgbA1c and is account development representative of the average blood glucose level in the last 2-3 month period. Performed By: #### H BA1C ####[facility] [id number] [address] HbA1c (Bld) [Mass fraction] 5.1 % Normal 4.3-5.6 [facility] Comment on above: Order Comment: Specsuzie mina Type: BLOOD SPECIMENOrdering Facility: [facility] Address: [address] [place] [address] Result Comment: [place] Diabetes Association guidelines indicate that patients with HgbA1c in the range 5.7-6.4% are at increased risk for development of diabetes, and intervention by lifestyle modification may be beneficial. HgbA1c greater or equal to 6.5% is considered diagnostic of diabetes. Performed By: #### H BA1C ####[facility] [id number] [address] [facility] HISTORY PHYSICALon HISTORY PHYSICAL HNO ID: [id number] Author: Maira Doss APRN.C2 TACTICAL ANALYSIS TECHNICIAN Service: ? Author Type: Nurse Practitioner Type: HANDP Filed: 09/11/2021 11:52 AM Note Text: HISTORY AND PHYSICAL EXAMINATION SERVICE DATE: 09/10/2021 SERVICE TIME: 11:00 AM PRIMARY CARE PHYSICIAN: Mona Reese DO, DO REASON FOR VISIT: Meera Mckoy is a 71 year old male who is scheduled for ARTHROPLASTY REPLACE JOINT TOTAL HIP - Right at the request of Dr. Gordo Nova for consultation. My final recommendation will be communicated back to the requesting physician by way of shared medical record or letter. The patient has the following: ACTIVE PROBLEM LIST Torn Meniscus Low Back Pain Radiating to Right Leg High Cholesterol Ac (Acromioclavicular) Joint Bone Spurs Shoulder Pain Elevated Psa Sensory Peripheral Neuropathy Osteoarthrosis, Unspecified Whether Generalized Or Localized, Lower Leg Malignant Neoplasm of Prostate (Hcc) Urge Incontinence Urge Incontinence of Urine Bph (Benign Prostatic Hyperplasia) History of Prostate Cancer Kidney Stone Pre-Op Evaluation Primary Osteoarthritis of Right Hip Primary Hypertension Subjective CHIEF COMPLAINT: Right hip pain HPI: 71 year old male with right hip pain for > 6 months. Pain is impacting sleep, work, activity level, and impairing daily life. Conservative measures have been ineffective. Patient has opted to proceed with above reccommended surgery and is here today for preanesthesia consultation. PAST MEDICAL HISTORY Diagnosis Date - Bone Spurs LT SHOULDER - Elevated PSA - High cholesterol GOOD WITH MEDS - Kidney stone 05/26/2016 - Low back pain radiating to right leg - Shoulder pain RT - Torn meniscus BILATERAL 12 YEARS AGO LEFT KNEE- 04/22 RT KNEE PAST SURGICAL HISTORY Procedure Laterality Date - ARTHROCENTESIS ASPIRAND/INJ MAJOR JT/BURSA W/O US 02/21/10 INJECT KNEE LEFT performed by YESENIA ARCEO at OR - ARTHROSCOPIC KNEE SURGERY 2008- RT LT KNEE ALSO 12 YEARS AGO - ARTHRS KNE SURG W/MENISCECTOMY MED/LAT W/SHVG 02/21/10 ARTHROSCOPY KNEE WITH MENISCECTOMY MEDIAL OR LATERAL AND MENISCAL SHAVING performed by YESENIA ARCEO at OR - BONE SPURS REMOVED SHOULDER - TONSILLECTOMY HX AGE 18 - VASECTOMY UNI/BI SPX W/POSTOP SEMEN EXAMS 22 YEARS AGO FAMILY HISTORY Problem Relation Age of Onset - Cancer Mother CERVICLE - Stroke Mother - Heart Father AORTIC VALVE - Stroke Father - Anesthesia Problems No Family History SOCIAL HISTORY: Social History Tobacco Use - Smoking status: Former Smoker Quit date: 06/14/1979 Years since quittin.2 - Smokeless tobacco: Never Used - Tobacco comment: SMOKED PIPE FOR 10 YEARS Substance Use Topics - Alcohol use: Yes Comment: SOCIAL 3x/week - Drug use: No Comment: denies tx for substance and alcohol abuse in the past MEDICATIONS: Prior to Admission medications as of 09/10/21 1202 Medication Sig Last Dose Taking allopurinol (ZYLOPRIM) 100 mg tablet Take 100 mg by mouth once daily. Taking Yes atorvastatin (LIPITOR) 40 mg tablet Take 40 mg by mouth once daily. Taking Yes diphenhydrAMINE (BENADRYL) 25 mg capsule Take 25 mg by mouth as needed. Taking Yes hydroCHLOROthiazide (HYDRODIURIL, ESIDRIX) 25 mg tablet Take 25 mg by mouth once daily. Taking Yes latanoprost (XALATAN) 0.005 % ophthalmic solution Use 1 Drop in both eyes every evening. Taking Yes losartan (COZAAR) 100 mg tablet Take 100 mg by mouth once daily. Taking Yes OZEMPIC 1 mg/dose (4 mg/3 mL) pen injector Inject 1 mg subcutaneously one time a week. Taking Yes spironolactone (ALDACTONE) 25 mg tablet Take 25 mg by mouth once daily. Taking Yes amLODIPine (NORVASC) 5 mg tablet Take 1 tablet by mouth once daily. Taking Yes timolol maleate (TIMOPTIC) 0.5 % ophthalmic solution Use 1 Drop in both eyes once daily. Taking Yes zolpidem 10 mg tab Take by mouth at bedtime as needed. Taking Yes aspirin, enteric coated 81 mg EC tablet Take 81 mg by mouth once daily. Taking Yes sildenafil (VIAGRA) 100 mg tablet Take 0.5 tablets by mouth as needed. 30-60 minutes before sexual intercourse Taking Yes mupirocin (BACTROBAN) 2 % ointment twice daily for 5 days. Apply 0.5 inch with cotton swab (Q-tip) to each nostril in the morning and evening for 5 days prior to and including day of surgery. No medication comments found. CURRENT ALLERGIES: ALLERGIES Allergen Reactions - Seasonal Allergies Unknown COVID VACCINATION STATUS: Fully vaccinated REVIEW OF SYSTEMS: PAIN ASSESSMENT: General: No weight loss, malaise or fevers. Neuro: No history of TIA's, stroke, CEMETERY KEEPER tumor, impaired sensorium, hemiplegia, paraplegia or quadraplegia. No neurological symptoms or problems. Respiratory: No history of current cough or dyspnea, or pneumonia in the past 6 weeks. No history of respiratory/pulmonary symptoms or problems. + KATTY wears CPAP Cardiovascular: Negative for Recent PA, Arrhythmia, Susana (more content not included)... Normal [facility] TYPE AND SCREEN,30 DAYon ABO O Normal [facility] Comment on above: Order Comment: Speci men Type: BLOOD SPECIMENOrdering Facility: [facility] Address: [address] [place] [phone] Performed By: #### T SCR30 ####[facility] [id number] [place], [place] [address] [place] [address] [place] HISTORICAL AB SCR STATUS Negative Normal [facility] Comment on above: Order Comment: Speci men Type: BLOOD SPECIMENOrdering Facility: [facility] Address: [address] [place] [address] Performed By: #### T SCR30 ####[facility] [id number] [place] [address] [place] Rh Nom (Bld) Positive Normal [facility] Comment on above: Order Comment: Speci men Type: BLOOD SPECIMENOrdering Facility: [facility] Address: [address] [place] [address] Performed By: #### T SCR30 ####[facility] [id number] [address] [place] [address] [place] Urinalysis complete panel (U )on 09-10-2021 Bilirubin Ql (U) Negative Normal Negative [facility] Comment on above: Order Comment: Speci men Type: URINE SPECIMENOrdering Facility: [facility] Address: [address] [place] [address] Performed By: #### 2 4356-8 ####[facility] [id number] [address] [place] Clarity (Unsp spec) Clear Normal Clear [facility] Comment on above: Order Comment: Speci men Type: URINE SPECIMENOrdering Facility: [facility] Address: [address] [place], [place] [address] Performed By: #### 2 4356-8 ####[facility] [id number] [place] [address] [place] Color (U) Straw Normal Yellow [facility] Comment on above: Order Comment: Speci men Type: URINE SPECIMENOrdering Facility: [facility] Address: [address] [place], [place] [address] Performed By: #### 2 4356-8 ####[facility] [id number] [facility] [place] [address] [place] Glucose Test strip (U) [Mass/Vol] Negative Normal Negative [facility] Comment on above: Order Comment: Speci men Type: URINE SPECIMENOrdering Facility: [facility] Address: [address] [place] [address] Performed By: #### 2 4356-8 ####[facility] [id number] [place] [address] [place] Hemoglobin Ql (U) Negative Normal Negative [facility] Comment on above: Order Comment: Speci men Type: URINE SPECIMENOrdering Facility: [facility] Address: [address] [place] [address] Performed By: #### 2 4356-8 ####[facility]CL[facility] [id number] [place] [address] [place] Ketones Ql (U) Negative Normal Negative [facility] Comment on above: Order Comment: Speci men Type: URINE SPECIMENOrdering Facility: [facility] Address: [address] [place] [address] Performed By: #### 2 4356-8 ####[facility] [id number] [address] [place] Leukocyte esterase Test strip Ql (U) Negative Normal Negative [facility] Comment on above: Order Comment: Speci men Type: URINE SPECIMENOrdering Facility: [facility] Address: [address] [place] [address] Performed By: #### 2 4356-8 ####[facility] [id number] [place] [address] [place] Nitrite Ql (U) Negative Normal Negative [facility] Comment on above: Order Comment: Speci men Type: URINE SPECIMENOrdering Facility: [facility] Address: [address] [place] [address] Performed By: #### 2 4356-8 ####[facility] [id number] [place] [address] [place] pH (U) 7.0 [pH] Normal 5.0-8.0 [facility] Comment on above: Order Comment: Speci men Type: URINE SPECIMENOrdering Facility: [facility] Address: [address] [place], [place] [address] Performed By: #### 2 4356-8 ####[facility] [id number] [place] [address] [place] Protein (U) [Mass/Vol] Negative Normal Negative Cl [facility] Comment on above: Order Comment: Speci men Type: URINE SPECIMENOrdering Facility: [facility] Address: [address] [place], [place] [address] Performed By: #### 2 4356-8 ####[facility] [id number] [place] [address] [place] RBC LM.HPF (Urine sed) [#/Area] 0-3 /HPF Normal 0-3 /HPF [facility] Comment on above: Order Comment: Speci men Type: URINE SPECIMENOrdering Facility: [facility] Address: [address] [place], [place] [address] Performed By: #### 2 4356-8 ####[facility] [id number] [place] [address] [place] Specific gravity (U) [Rel density] 1.008 Normal 1.005-1.030 [facility] Comment on above: Order Comment: Speci men Type: URINE SPECIMENOrdering Facility: [facility] Address: [address] [place], [place] [address] Performed By: #### 2 4356-8 ####[facility] [id number] [address] [place] Urobilinogen Ql (U) Negative Normal Negative [facility] Comment on above: Order Comment: Speci men Type: URINE SPECIMENOrdering Facility: [facility] Address: [address] [place] [address] Performed By: #### 2 4356-8 ####[facility] [id number] [address] [place] WBC LM.HPF (Urine sed) [#/Area] 0-5 /HPF Normal 0-5 /HPF [facility] Comment on above: Order Comment: Speci men Type: URINE SPECIMENOrdering Facility: [facility] Address: [address] [place] [address] Performed By: #### 2 4356-8 ####[facility] [id number] [address] [place] Kelly 08-01-2021 CNPN Telephone (4CQ) MEERA MCKOY ([id number]) 1950 M Date Time Provider Department 08/01/21 GORDO NOVA 4CQ During your visit today, we recorded the following information about you: Cici Seay 08/01/2021 11:54 AM Signed Meera Mckoy called today. : 1950 Allergies: Seasonal Allergies (home) [phone] (cell) Reason for call: patient calling to inform he will be going out of town next Wednesday, 08/05 until 08/25/21 and would like to speak to provider about surgery and would like to speak to refractory bricklayer prior to leaving. Please call patient LAKEISHA at [phone]. Patient last appointment: Visit date not found The patients preferred pharmacy has been captured for this encounter? no Cici Seay Gordo Nova II, MD 08/01/2021 2:15 PM Signed Called patient and we will get together on Wednesday Gordo Nova II, MD Allergies As of Date: 08/01/2021 Noted Allergy Reaction SEASONAL ALLERGIES 12/21/2012 16 - Unknown Date Reviewed: 06/29/2021 Reviewed by: Gordo Nova MD - Fully Assessed Reason for Visit: Patient Question [1477] Prescriptions as of 08/01/2021 - terbinafine HCl (LAMISIL) 250 mg tablet Take 1 tablet by mouth once daily. - ketoconazole (NIZORAL) 2 % cream Apply 1 application to affected area once daily. - isosorbide dinitrate 30 mg tablet Take 30 mg by mouth once daily. - amLODIPine-benazepril (LOTREL) 5-10 mg per capsule Take 1 capsule by mouth once daily. - zolpidem 10 mg tab Take by mouth at bedtime as needed. - aspirin, enteric coated 81 mg EC tablet Take 81 mg by mouth once daily. - sildenafil (VIAGRA) 100 mg tablet Take 0.5 tablets by mouth as needed. 30-60 minutes before sexual intercourse - valsartan(DIOVAN 160 MG TAB) Take one(1) tablet daily. - rosuvastatin calcium(CRESTOR 10 MG TAB) 2 x a week Problem List As Of Date 08/01/2021 Noted Resolved Torn Meniscus Low Back Pain Radiating to Right Leg [M54.50, M* High Cholesterol [E78.00] AC (Acromioclavicular) Joint Bone Spurs [M75.80] Shoulder Pain [M25.519] Elevated PSA [R97.20] 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] 02/11/2010 Osteoarth NOS-l/leg [BXZ0670] 04/07/2010 Malignant neoplasm of prostate [C61] 04/29/2010 Urge incontinence [N39.41] 10/23/2010 Urge incontinence of urine [N39.41] 10/23/2010 BPH (benign prostatic hyperplasia) [N40.0] 06/25/2011 History of prostate cancer [Z85.46] 12/25/2011 Kidney stone [N20.0] 05/26/2016 Encounter Status:Closed by GORDO NOVA II on 08/01/21 Normal [facility] Complete Blood Count with Au to Diffon 06-26-2021 Basophils (Bld) [#/Vol] 0.02 10*3/uL Normal 0.00-0.20 [facility] Trouble Shooter Comment on above: Performed By: #### V ITD, CBCAD, CMP #### [facility] [address] [place], [place] [id number] Basophils/100 WBC (Bld) 0.2 % Normal N [facility] Specialist Comment on above: Performed By: #### V ITD, CBCAD, CMP #### [facility] [address] [place], [place] [id number] Eosinophils (Bld) [#/Vol] 0.14 10*3/uL Normal 0.02-0.50 [facility] Specialist Comment on above: Performed By: #### V ITD, CBCAD, CMP #### [facility] [address] [place], [place] [id number] Eosinophils/100 WBC (Bld) 1.5 % Normal [facility] Specialist Comment on above: Performed By: #### V ITD, CBCAD, CMP #### [facility] [address] [place], [place] [id number] Erythrocyte distribution width (RBC) [Ratio] 12.4 % Normal 11.0-15.0 [facility] Specialist Comment on above: Performed By: #### V ITD, CBCAD, CMP #### [facility] [address] [place], [place] [id number] Hematocrit (Bld) [Volume fraction] 42.1 % Normal 38.5-50.0 [facility] Specialist Comment on above: Performed By: #### V ITD, CBCAD, CMP #### [facility] [address] [place], [place] [id number] Hemoglobin (Bld) [Mass/Vol] 14.8 g/dL Normal 13.0-17.1 [facility] Trouble Shooter Comment on above: Performed By: #### V ITD, CBCAD, CMP #### [facility] Laboratory [address] [place], [place] [id number] Lymphocytes (Bld) [#/Vol] 1.0 10*3/uL Normal 0.9-3.9 [facility] Specialist Comment on above: Performed By: #### V ITD, CBCAD, CMP #### [facility] [address] [place], [place] [id number] Lymphocytes/100 WBC (Bld) 10.2 % Normal [facility] Comment on above: Performed By: #### V ITD, CBCAD, CMP #### [facility] [address] [place], [place] [id number] MCH (RBC) [Entitic mass] 33.1 pg High 27.0-33.0 [facility] Specialist Comment on above: Performed By: #### V ITD, CBCAD, CMP #### [facility] [address] [place], [place] [id number] MCHC (RBC) [Mass/Vol] 35.2 g/dL Normal 32.0-36.0 [facility] Comment on above: Performed By: #### V ITD, CBCAD, CMP #### [facility] [address] [place], [place] [id number] MCV (RBC) [Entitic vol] 94 fL Normal 80-100 [facility] Specialist Comment on above: Performed By: #### V ITD, CBCAD, CMP #### [facility] [address] [place], [place] [id number] Monocytes (Bld) [#/Vol] 1.3 10*3/uL High 0.2-0.9 [facility] Specialist Comment on above: Performed By: #### V ITD, CBCAD, CMP #### [facility] [address] [place], [place] [id number] Monocytes/100 WBC (Bld) 13.5 % Normal [facility] Specialist Comment on above: Performed By: #### V ITD, CBCAD, CMP #### [facility] [address] [place], [place] [id number] Neutrophils (Bld) [#/Vol] 7.0 10*3/uL Normal 1.5-7.8 [facility] Specialist Comment on above: Performed By: #### V ITD, CBCAD, CMP #### [facility] [address] [place], [place] [id number] Neutrophils/100 WBC (Bld) 74.0 % Normal [facility] Specialist Comment on above: Performed By: #### V ITD, CBCAD, CMP #### [facility] [address] [place], [place] [id number] Platelet mean volume (Bld) [Entitic vol] 10.70 fL Normal 7.50-12.50 [facility] Comment on above: Performed By: #### V ITD, CBCAD, CMP #### [facility] [address] [place], [place] [id number] Platelets (Bld) [#/Vol] 291 10*3/uL Normal 140-400 [facility] Specialist Comment on above: Performed By: #### V ITD, CBCAD, CMP #### [facility] [address] [place], [place] [id number] RBC (Bld) [#/Vol] 4.47 10*6/uL Normal 4.20-5.80 [facility] Specialist Comment on above: Performed By: #### V ITD, CBCAD, CMP #### [facility] [address] [place], [place] [id number] RDW-SD 43.1 fL Normal 37.0-50.0 [facility] Specialist Comment on above: Performed By: #### V ITD, CBCAD, CMP #### [facility] [address] [place], [place] [id number] WBC (Bld) [#/Vol] 9.4 10*3/uL Normal 3.8-11.0 [facility] Trouble Shooter Comment on above: Performed By: #### V ITD, CBCAD, CMP #### [facility] [address] [place], [place] [id number] Comprehensive Metabolic Pane [facility] 06-26-2021 Albumin [Mass/Vol] 4.7 g/dL Normal 3.6-5.1 [facility] Trouble Shooter Comment on above: Performed By: #### V ITD, CBCAD, CMP #### [facility] [address] [place], [place] [id number] Albumin/Globulin [Mass ratio] 2.5 {ratio} Normal 1.0-2.5 [facility] Specialist Comment on above: Performed By: #### V ITD, CBCAD, CMP #### [facility] [address] [place], [place] [id number] ALP [Catalytic activity/Vol] 77 U/L Normal 40-129 [facility] Comment on above: Performed By: #### V ITD, CBCAD, CMP #### [facility] [address] [place], [place] [id number] ALT [Catalytic activity/Vol] 35 U/L Normal 9-46 [facility] Specialist Comment on above: Result Comment: 05/14 Female reference range changed. Performed By: #### V ITD, CBCAD, CMP #### [facility] [address] [place], [place] [id number] Anion gap [Moles/Vol] 18 mmol/L Normal 12-20 [facility] Comment on above: Result Comment: Effe ctive 06/19/2019 reference range changed. Performed By: #### V ITD, CBCAD, CMP #### [facility] [address] [place], [place] [id number] AST [Catalytic activity/Vol] 31 U/L Normal 10-40 [facility] Comment on above: Performed By: #### V ITD, CBCAD, CMP #### [facility] [address] [place], [place] [id number] Bilirubin [Mass/Vol] 0.60 mg/dL Normal 0.30-1.20 [facility] Comment on above: Performed By: #### V ITD, CBCAD, CMP #### [facility] [address] [place], [place] [id number] BUN/CREA 21 Ratio Normal 6-22 [facility] Comment on above: Performed By: #### V ITD, CBCAD, CMP #### [facility] [address] [place], [place] [id number] Calcium [Mass/Vol] 9.7 mg/dL Normal 8.6-10.2 [facility] Comment on above: Performed By: #### V ITD, CBCAD, CMP #### [facility] [address] [place], [place] [id number] Chloride [Moles/Vol] 102 mmol/L Normal 98-107 [facility] Comment on above: Performed By: #### V ITD, CBCAD, CMP #### [facility] [address] [place], [place] [id number] CO2 [Moles/Vol] 21 mmol/L Normal 20-31 [facility] Comment on above: Performed By: #### V ITD, CBCAD, CMP #### [facility] [address] [place], [place] [id number] Creatinine [Mass/Vol] 0.9 mg/dL Normal 0.7-1.4 [facility] Specialist Comment on above: Performed By: #### V ITD, CBCAD, CMP #### [facility] [address] [place], [place] [id number] eGFRAA 100 mL/min/1.73m2 Normal >60 [facility] Specialist Comment on above: Performed By: #### V ITD, CBCAD, CMP #### [facility] [address] [place], [place] [id number] eGFRNAA 82 mL/min/1.73m2 Normal >60 [facility] Comment on above: Performed By: #### V ITD, CBCAD, CMP #### [facility] [address] [place], [place] [id number] Globulin (S) [Mass/Vol] 1.9 g/dL Normal 1.9-3.7 [facility] Comment on above: Performed By: #### V ITD, CBCAD, CMP #### [facility] [address] [place], [place] [id number] Glucose [Mass/Vol] 104 mg/dL High 65-99 [facility] Comment on above: Result Comment: For FASTING Glucose --- ADA reference ranges: Normal 65-99 mg/dl Prediabetes 100-125 Diabetes >/= 126 Performed By: #### V ITD, CBCAD, CMP #### [facility] [address] [place], [place] [id number] Potassium [Moles/Vol] 4.5 mmol/L Normal 3.5-5.5 [facility] Comment on above: Performed By: #### V ITD, CBCAD, CMP #### [facility] [address] [place], [place] [id number] Protein [Mass/Vol] 6.6 g/dL Normal 6.1-8.1 [facility] [place] Tr[facility] Shooter Comment on above: Performed By: #### V ITD, CBCAD, CMP #### [facility] [address] [place], [place] [id number] Sodium [Moles/Vol] 136 mmol/L Normal 135-146 [facility] [place] Tr[facility] Shooter Comment on above: Performed By: #### V ITD, CBCAD, CMP #### [facility] [address] [place], [place] [id number] Urea nitrogen [Mass/Vol] 20 mg/dL Normal 7-25 [facility] Trouble Shooter Comment on above: Performed By: #### V ITD, CBCAD, CMP #### [facility] [address] [place], [place] [id number] Hemoglobin A1Con 06-26-2021 EAG 111.15 Normal [facility] Trouble Shooter Comment on above: Performed By: #### A 1C #### [facility] [address] [place], [place] [id number] HbA1c (Bld) [Mass fraction] 5.5 % Normal 4.0-6.0 [facility] Trouble Shooter Comment on above: Performed By: #### A 1C #### [facility] [address] [place], [place] [id number] Q - INSULIN,SERUMon 06-26-19 22 INSULIN 11.0 uIU/mL Normal [facility] Trouble Shooter Comment on above: Order Comment: [facility] Testing performed at: [facility], [employer] [facility], [address] [place] [address], [address] [place] [address], [id number], Digital Forensic Analyst: Ottoniel Best MD [facility] Collection Date/Time: [facility] Results Received Date/Time: [facility] Reported Date/Time: Result Comment: Refe rence Range < or = 19.6 Risk: Optimal < or = 19.6 Moderate NA High >19.6 Adult cardiovascular event risk category cut points (optimal, moderate, high) are based on [employer] population data from 05/2011. This insulin assay shows strong cross-reactivity for some insulin analogs (lispro, aspart, and glargine) and much lower cross-reactivity with others (detemir, glulisine). Performed By: #### 5 61 #### [facility] Default [address] [place] [address] Vitamin B12on 06-26-2021 Cobalamin (Vitamin B12) [Mass/Vol] 1672 pg/mL High 211-946 [facility] Trouble Shooter Comment on above: Performed By: #### B 12 #### [facility] [address] [place], [place] [id number] Vitamin D 25-OHon 06-26-2021 VIT D 25 OH 45 ng/ml Normal >29 [facility] Trouble Shooter Comment on above: Result Comment: Tiffany min D Status Deficiency <20 ng/mL Insufficiency 20-29 ng/mL Optimal 30-100 ng/mL Possible Toxicity >=150 ng/mL Performed By: #### V ITD, CBCAD, CMP #### [facility] [address] [place], [place] [id number] CNOVon 06-23-2021 CNOV Office Visit (ORAVON ) MEERA MCKOY ([id number]) 1950 M Date Time Provider Department 06/23/21 11:45 AM GAVIN ELLIOTT During your visit today, we recorded the following information about you: Gavin Elliott DO 06/23/2021 11:46 AM Signed Meera Dayana Mckoy is here today at request of Dr. Gordo Nova specifically for consultation of my opinion in regards to the chief complaint listed below. Correspondence will be shared today via the [employer] electronic health record or through regular mail, where applicable. CHIEF COMPLAINT: Meera Mckoy is a 71 year old male who presents today for new evaluation of right hip. CONSULTATION NOTE Correspondence will be shared today via the [employer] electronic health record or through regular mail, where applicable. HISTORY OF PRESENT ILLNESS: PAIN EVALUATION 06/23/2021 1132 Pain Level: 5 Pain Location: Hip-Right Description: Aching;Sore;Dull Duration Amount of Time: 7 Duration Units: Months Frequency: Intermittent Intervention/Comfort measure: Reposition;Relaxation I personally reviewed previous notes by the referring physician regarding this complaint. SOCIAL HISTORY: Tobacco Use: Quit 06/14/1979. (SMOKED PIPE FOR 10 YEARS) PHYSICAL EXAMINATION: Pain with right hip motion CLINICAL IMPRESSION / ASSESSMENT: (M16.11) Primary osteoarthritis of right hip (primary encounter diagnosis) RECOMMENDATION / PLAN: Injection performed as detailed below in PROCEDURE NOTE Follow up: Per consulting physician. Large Joint Arthro/Inj: R hip joint Informed Consent Consent Obtained: Verbal [place] Protocol A moment to CARE was completed. SIGN IN Personnel directly involved with the procedure wore the appropriate PPE. Special Equipment: N/A Patient/Surrogate Stated/Verified: Patient name, Date of , Relevant allergies and Intended procedure TIME OUT Intended patient and procedure match the source document(s). Consent documented and matches the intended procedure. No relevant labs, photos, and/or imaging studies were applicable for review. Correct side/site marked and visible. Medications required for procedure verified. No fire risk assessment and interventions applicable. No implant(s) inserted. 06/23/2021 11:46 AM The procedure site was prepped in the usual sterile fashion. Site: R hip joint Details:Musculoskeleta l ultrasound was utilized to successfully localize placement of the injection needle at the appropriate site. Ultrasound images demonstrating local vasculature and demonstrating injection of solution were saved. Medications: 40 mg triamcinolone acetonide 40 mg/mL Anesthetics: 4 mL lidocaine (PF) 10 mg/mL (1 %) Outcome: Tolerated well, no immediate complications Post-injection instructions were reviewed with the patient and the patient voiced understanding of these instructions. SIGN OUT No specimen collected. No instruments, equipment or retained foreign bodies applicable. Post-procedure follow-up management communicated and Plan of Care Visit completed when applicable Gavin Elliott DO Referring Provider: GAVIN ELLIOTT [[id number]] Allergies As of Date: 06/23/2021 Noted Allergy Reaction SEASONAL ALLERGIES 12/21/2012 16 - Unknown Date Reviewed: 06/23/2021 Reviewed by: Gavin Elliott DO - Fully Assessed Reason for Visit: Pain [78] Primary Visit Diagnosis:Primary osteoarthritis of right hip [M16.11] Order(s):US HIP-INJECTION RT (POC) PIETRO USE ONLY [0622272] Order #: [id number]: 1 Large Joint Arthro/Inj: R hip joint [GFG167] Order #: [id number] [] lidocaine (PF) 10 mg/mL (1 %) 4 mL injection (XYLOCAINE)Disp: Rfl: [] triamcinolone acetonide 40 mg injection (KENALOG 40)Disp: Rfl: Prescriptions as of 06/23/2021 - terbinafine HCl (LAMISIL) 250 mg tablet Take 1 tablet by mouth once daily. - ketoconazole (NIZORAL) 2 % cream Apply 1 application to affected area once daily. - isosorbide dinitrate 30 mg tablet Take 30 mg by mouth once daily. - amLODIPine-benazepril (LOTREL) 5-10 mg per capsule Take 1 capsule by mouth once daily. - zolpidem 10 mg tab Take by mouth at bedtime as needed. - aspirin, enteric coated 81 mg EC tablet Take 81 mg by mouth once daily. - sildenafil (VIAGRA) 100 mg tablet Take 0.5 tablets by mouth as needed. 30-60 minutes before sexual intercourse - valsartan(DIOVAN 160 MG TAB) Take one(1) tablet daily. - rosuvastatin calcium(CRESTOR 10 MG TAB) 2 x a week Problem List As Of Date 06/23/2021 Noted Resolved Torn Meniscus Low Back Pain Radiating to Right Leg [M54.50, M* High Cholesterol [E78.00] AC (Acromioclavicular) Joint Bone Spurs [M75.80] Shoulder Pain [M25.519] Elevated PSA [R97.20] 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] 02/11/2010 Osteoarth NOS-l/leg [QCK2900] 04/07/2010 Malignant neoplasm of prostate [C61] 04/29/2010 Urge incontinence [N39.41] (more content not included)... Normal [facility] CNOVon 06-19-2021 CNOV Office Visit (LOORRM ) MEERA MCKOY ([id number]) 1950 M Date Time Provider Department 06/19/21 11:45 AM GORDO NOVA LOORRDarleen During your visit today, we recorded the following information about you: Weight Height 116.6 kg 1.803 m Gordo Nova II, MD 06/23/2021 12:59 PM Signed [facility] [address] [place], [place] [address] CLINIC NOTE Department of Orthopaedics - Katrina Nova II, M.D. NAME: MEERA MCKOY CLINIC NO.: [id number] DATE OF SERVICE: 06/19/2021 CHIEF COMPLAINT: Pain in right hip and radiates down the leg. Pain level is 5 and it sometimes goes to an 8/10. WHEN: The last 6 months. HOW: Insidious onset but denies any falls or injuries. WHERE: At home. PAST MEDICAL TREATMENT: NSAIDs: Voltaren and Lodine. PT: Therapy has helped some in the past. Injections: None. PAST SURGICAL TREATMENT: Arthroscopic surgery on the right knee. Bilateral total knees 2009 - Dr. Bronson. REVIEW OF SYSTEMS: Cardiovascular: No history of heart disease. Respiratory: No history of acute or chronic lung disease. Gastrointestinal: No history of ulcers has GERD and takes Tums. Endocrine: No history of diabetes, but he is on Ozempic for weight loss per his family doctor. Heme: No history of phlebitis or blood clots. Urinary: Has some urgency and incontinence. ALLERGIES: SEASONAL. 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 Has no significant tenderness over his greater trochanter. Hips are moderate size. His weight is all in a large belly. X-RAY: AP weight bearing shows [id number] on the superior weightbearing portion of the right hip with degenerative arthritis throughout the joint. IMPRESSION: Severe degenerative arthritis of the right hip. RECOMMEND: 1. Weight loss - discussed intermittent fasting. 2. Patient wants to get some relief of pain before he goes to [place] in July and then is considering having a total hip done upon his return. We have suggested a hip injection by Dr. Elliott. The patient is anxious to have this done, we will schedule. We will plan on doing his hip 3 months after the hip injection. Dictated By: Gordo Nova II, M.D. Date Dictated: 06/19/2021 Date Typed: acu 06/20/2021 JOB# [id number] Gordo Nova II, MD 06/29/2021 3:13 PM Signed Addended by: GORDO NOVA II on: 06/29/2021 03:13 PM Modules accepted: Orders Well Driller Helper: Transcribed Clinic Note (osiris) ID: [id number] Author: GORDO NOVA Signed by GORDO NOVA MD on 06/23/2021 at 12:59 PM Document text: [facility] [address] [place], [place] [address] CLINIC NOTE Department of Orthopaedics - Ponce Gordo Nova II, M.D. NAME: MEERA MCKOY CLINIC NO.: [id number] DATE OF SERVICE: 06/19/2021 CHIEF COMPLAINT: Pain in right hip and radiates down the leg. Pain level is 5 and it sometimes goes to an 8/10. WHEN: The last 6 months. HOW: Insidious onset but denies any falls or injuries. WHERE: At home. PAST MEDICAL TREATMENT: NSAIDs: Voltaren and Lodine. PT: Therapy has helped some in the past. Injections: None. PAST SURGICAL TREATMENT: Arthroscopic surgery on the right knee. Bilateral total knees 2009 - Dr. Bronson. REVIEW OF SYSTEMS: Cardiovascular: No history of heart disease. Respiratory: No history of acute or chronic lung disease. Gastrointestinal: No history of ulcers has GERD and takes Tums. Endocrine: No history of diabetes, but he is on Ozempic for weight loss per his family doctor. Heme: No history of phlebitis or blood clots. Urinary: Has some urgency and incontinence. ALLERGIES: SEASONAL. 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 Has no significant tenderness over his greater trochanter. Hips are moderate size. His weight is all in a large belly. X-RAY: AP weight bearing shows [id number] on the superior weightbearing portion of the right hip with degenerative arthritis throughout the joint. IMPRESSION: Severe degenerative arthritis of the right hip. RECOMMEND: 1. Weight loss - discussed intermittent fasting. 2. Patient wants to get some relief of pain before he goes to [place] in July and then is considering having a total hip done upon his return. We have suggested a hip injection by Dr. Elliott. The patient is anxious to have this done, we will schedule. We will plan on doing his hip 3 months after the hip injection. Dictated By: Gordo Nova II, M.D. Date Dictated: 06/19/2021 Date Typed: matt 06/20/2021 JOB# [id number] -- Refe (more content not included)... Normal [facility] XR HIP 3V PELV+ AP/LAT RTon 06-19-2021 XR HIP 3V PELV+ AP/LAT RT * * *Final Report* * * DATE OF EXAM: Jun 19 2021 11:32AM LZX 5352 - XR HIP 3V PELV+ AP/LAT RT / PROCEDURE REASON: Primary osteoarthritis of right hip * * * * Physician Interpretation * * * * EXAMINATION / TECHNIQUE: XR HIP 3V PELV+ AP/LAT RT PATIENT/TECHNOLOGIST PROVIDED HISTORY: chronic right groin pain CLINICAL INFORMATION ( PROVIDED BY ORDERING CLINICIAN) : Primary osteoarthritis of right hip COMPARISON: None RESULT: No acute fracture or dislocation. Severe right hip joint space narrowing with obor-mw-dmqi contact, subchondral sclerosis and marginal osteophytes. Moderate degenerative changes in the left hip. Sacroiliac joints and pubic symphysis are maintained. Incompletely assessed lower lumbar spine degenerative changes. Brachytherapy seeds project over the prostate. IMPRESSION: Severe right hip osteoarthritis. School Child Care Attendant: TAPAN Transcribe Date/Time: Jun 19 2021 11:35A Dictated by : ABI HAWTHORNE MD This examination was interpreted and the report reviewed and electronically signed by: GORDO ANDRE MD on Jun 19 2021 12:19PM EST [id number] Normal [facility] XR Pelvis and Hip - right AP and Lateral frogon 06-19-2021 IMPRESSION: Severe right hip osteoarthritis. School Child Care Attendant: PSCJohn Transcribe Date/Time: Jun 19 2021 11:35A Dictated by : ABI HAWTHORNE MD This examination was interpreted and the report reviewed and electronically signed by: GORDO ANDRE MD on Jun 19 2021 12:19PM EST DIVISION OF RADIOLOGY * * *Final Report* * * DATE OF EXAM: Jun 19 2021 11:32AM LZX 5352 - XR HIP 3V PELV+ AP/LAT RT / PROCEDURE REASON: Primary osteoarthritis of right hip * * * * Physician Interpretation * * * * EXAMINATION / TECHNIQUE: XR HIP 3V PELV+ AP/LAT RT PATIENT/TECHNOLOGIST PROVIDED HISTORY: chronic right groin pain CLINICAL INFORMATION ( PROVIDED BY ORDERING CLINICIAN) : Primary osteoarthritis of right hip COMPARISON: None RESULT: No acute fracture or dislocation. Severe right hip joint space narrowing with wzsu-pk-lhmf contact, subchondral sclerosis and marginal osteophytes. Moderate degenerative changes in the left hip. Sacroiliac joints and pubic symphysis are maintained. Incompletely assessed lower lumbar spine degenerative changes. Brachytherapy seeds project over the prostate. DIVISION OF RADIOLOGY Provider, [facility] - 06/19/2021 * * *Final Report* * * DATE OF EXAM: Jun 19 2021 11:32AM LZX 5352 - XR HIP 3V PELV+ AP/LAT RT / PROCEDURE REASON: Primary osteoarthritis of right hip * * * * Physician Interpretation * * * * EXAMINATION / TECHNIQUE: XR HIP 3V PELV+ AP/LAT RT PATIENT/TECHNOLOGIST PROVIDED HISTORY: chronic right groin pain CLINICAL INFORMATION ( PROVIDED BY ORDERING CLINICIAN) : Primary osteoarthritis of right hip COMPARISON: None RESULT: No acute fracture or dislocation. Severe right hip joint space narrowing with vlea-dt-nuri contact, subchondral sclerosis and marginal osteophytes. Moderate degenerative changes in the left hip. Sacroiliac joints and pubic symphysis are maintained. Incompletely assessed lower lumbar spine degenerative changes. Brachytherapy seeds project over the prostate. IMPRESSION IMPRESSION: Severe right hip osteoarthritis. School Child Care Attendant: TAPAN Transcribe Date/Time: Jun 19 2021 11:35A Dictated by : ABI HAWTHORNE MD This examination was interpreted and the report reviewed and electronically signed by: GORDO ANDRE MD on Jun 19 2021 12:19PM EST [facility] Radiology Study observation (narrative) [facility] XR Pelvis and Hip - right AP and Lateral frogOrdered By: [facility] Provider on 06-19-2021 [facility] XR FOOT GEMINI MIN 3 VIEWSon XR FOOT GEMINI MIN 3 VIEWS EXAMINATION: XR FOOT GEMINI MIN 3 VIEWS HISTORY: Pain in both feet COMPARISON: No relevant comparison available. FINDINGS: RIGHT FINDINGS: BONES: No acute fracture or dislocation. Persistent flexion of the third through fifth toes limits their evaluation. Minimal enthesopathic spurring of the calcaneus. No focal lytic or sclerotic changes to suggest osteomyelitis SOFT TISSUES: Negative. No visible soft tissue swelling. OTHER: Negative. LEFT FINDINGS: BONES: No acute fracture or dislocation. Persistent flexion of the third through fifth toes limits their evaluation. Minimal enthesopathic spurring of the calcaneus. No focal lytic or sclerotic changes to suggest osteomyelitis SOFT TISSUES: Negative. No visible soft tissue swelling. OTHER: Negative. IMPRESSION: RIGHT CONCLUSION: No acute abnormality. No plain film evidence of osteomyelitis LEFT CONCLUSION: No acute abnormality. No plain film evidence of osteomyelitis Electronically authenticated by: MEERA BRAND Date: 2020-12-03 16:41 Normal [facility] Vital Signs Date Time Vital Sign Value Performing Clinician Facility 04-14-2024 09:50-0400 Body height 177.8 cm Cely Marley MD Work Phone: [facility] 04-14-2024 09:50-0400 Body mass index (BMI) [Ratio] 35.44 kg/m2 Cely Marley MD Work Phone: [facility] 04-14-2024 09:50-0400 Body weight 112.04 kg Cely Marley MD Work Phone: [facility] 04-14-2024 09:50-0400 Diastolic blood pressure 76 mm[Hg] Cely Marley MD Work Phone: [facility] 04-14-2024 09:50-0400 Heart rate 78 /min Cely Marley MD Work Phone: [facility] 04-14-2024 09:50-0400 Systolic blood pressure 138 mm[Hg] Cely Marley MD Work Phone: [facility] 04-12-2024 14:34-0400 Body height 177.8 cm Yuerong Shane HARD CANDY SPINNER Work Phone: [facility] 04-12-2024 14:34-0400 Body mass index (BMI) [Ratio] 34.72 kg/m2 Yuerong Shane HARD CANDY SPINNER Work Phone: [facility] 04-12-2024 14:34-0400 Body weight 109.77 kg Yuerong Shane HARD CANDY SPINNER Work Phone: [facility] 04-12-2024 14:34-0400 Diastolic blood pressure 70 mm[Hg] Yuerong Shane HARD CANDY SPINNER Work Phone: [facility] 04-12-2024 14:34-0400 Heart rate 81 /min Yuerong Shane HARD CANDY SPINNER Work Phone: [facility] 04-12-2024 14:34-0400 SaO2% (BldA) [Mass fraction] 94 % Yuerong Shane HARD CANDY SPINNER Work Phone: [facility] 04-12-2024 14:34-0400 Systolic blood pressure 120 mm[Hg] Yuerong Shane HARD CANDY SPINNER Work Phone: [facility] 02-09-2024 09:25-0400 Body height 179.07 cm DO Mona Reese Work Phone: [facility] 02-09-2024 09:25-0400 Body mass index (BMI) [Ratio] 35.9 kg/m2 DO Mona Reese Work Phone: [facility] 02-09-2024 09:25-0400 Body weight 115.21 kg DO Mona Reese Work Phone: [facility] 04-09-2023 09:56-0400 Body height 180.3 cm Cely Marley MD Work Phone: [facility] 04-09-2023 09:56-0400 Body mass index (BMI) [Ratio] 32.92 kg/m2 eCly Marley MD Work Phone: [facility] 04-09-2023 09:56-0400 Body weight 107.05 kg Cely Marley MD Work Phone: [facility] 04-09-2023 09:56-0400 Diastolic blood pressure 68 mm[Hg] Cely Marley MD Work Phone: [facility] 04-09-2023 09:56-0400 Heart rate 68 /min Cely Marley MD Work Phone: [facility] 04-09-2023 09:56-0400 Systolic blood pressure 106 mm[Hg] Cely Marley MD Work Phone: [facility] 04-10-2022 11:29-0400 Body height 180.34 cm Mona Reese Work Phone: [facility] 250 DO Work Phone: 04-10-2022 11:29-0400 Body mass index (BMI) [Ratio] 31.8 kg/m2 Mona Reese Work Phone: [facility] 250 DO Work Phone: 04-10-2022 11:29-0400 Body surface area Derived from formula 2.23 m2 Mona Reees Work Phone: [facility] 250 DO Work Phone: 04-10-2022 11:29-0400 Body weight 103.42 kg Mona Reese Work Phone: [facility] 250 DO Work Phone: 04-10-2022 11:29-0400 Diastolic blood pressure 60 mm[Hg] Mona Reese Work Phone: [facility] 250 DO Work Phone: 04-10-2022 11:29-0400 Heart rate 68 /min Mona Reese Work Phone: [facility] 250 DO Work Phone: 04-10-2022 11:29-0400 Systolic blood pressure 128 mm[Hg] Mona Reese Work Phone: [facility] 250 DO Work Phone: 09-10-2021 11:14-0400 Body height 180.3 cm Pacc 2 Work Phone: [facility] 09-10-2021 11:14-0400 Body temperature 97 [degF] Pacc 2 Work Phone: [facility] 09-10-2021 11:14-0400 Body weight 112.95 kg Pacc 2 Work Phone: [facility] 09-10-2021 11:14-0400 Diastolic blood pressure 62 mm[Hg] Pacc 2 Work Phone: [facility] 09-10-2021 11:14-0400 Heart rate 66 /min Pacc 2 Work Phone: [facility] 09-10-2021 11:14-0400 Respiratory rate 16 /min Pacc 2 Work Phone: [facility] 09-10-2021 11:14-0400 SaO2% (BldA) [Mass fraction] 100 % Pacc 2 Work Phone: [facility] 09-10-2021 11:14-0400 Systolic blood pressure 103 mm[Hg] Pacc 2 Work Phone: [facility] 09-10-2021 09:38-0400 Body height 180.3 cm Lorna Milligantyson PA-C Work Phone: [facility] 09-10-2021 09:38-0400 Body weight 110.68 kg Lorna Milligantyson PA-C Work Phone: [facility] 03-13-2021 09:45-0400 Body height 180.34 cm Meera Daugherty Other [place] Other Encounters Encounter Date Encounter Type Care Provider Facility Start: 04-26-2024 Registered Recurring Mona Mobley jose DO Work Phone: [facility] Start: 04-26-2024 ambulatory Mona Tarynterriejanine Facility :[facility] Start: 04-25-2024 End: 04-25-2024 ambulatory Mona Centenoterriejanine DO Work Phone: [facility] Work Phone: Start: 04-25-2024 End: 04-25-2024 Discharged Recurring Mona Reese DO Work Phone: [facility] Start: 04-14-2024 End: 04-14-2024 ambulatory [facility] Start: 04-14-2024 End: 04-14-2024 Office outpatient visit 25 minutes Cely Marley MD Work Phone: [facility] Comment on above: Shortness of breath (Primary Dx); Agatston coronary artery calcium score less than 100; Essential hypertension, benign; Mixed hyperlipidemia; Mild aortic stenosis; BMI 35.0-35.9,adult; Localized edema Start: 04-12-2024 Non-patient / Non-visit Mona Taryneduardo DO Work Phone: [facility] Work Phone: Start: 04-12-2024 End: 04-12-2024 Office outpatient visit 25 minutes Yuerong Shane HARD CANDY SPINNER Work Phone: [facility] Comment on above: IFG (impaired fastin g glucose) (Primary Dx); Agatston coronary artery calcium score less than 100; Essential hypertension (CMS/HCC); Morbid obesity (CMS/HCC) Start: 04-12-2024 End: 04-12-2024 ambulatory MONA REESE Not Available Start: 02-11-2024 End: 02-11-2024 Patient encounter procedure DO Mona Reese Work Phone: [facility] Work Phone: Start: 02-11-2024 End: 02-11-2024 ambulatory DO Mona Reese Work Phone: [facility] Work Phone: Start: 02-11-2024 Non-patient / Non-visit Mona Reese DO Work Phone: [facility] Work Phone: Start: 02-09-2024 End: 02-09-2024 ambulatory MONA REESE Not Available Start: 02-09-2024 End: 02-09-2024 ambulatory DO Mona Centenoterriejanine Work Phone: [facility] Work Phone: Start: 02-09-2024 End: 02-09-2024 Patient encounter procedure DO Mona Centenoeduardo Work Phone: [facility] [place] [facility] Work Phone: Start: 02-04-2024 End: 02-04-2024 Patient encounter procedure DO Mona Centenoterriek Work Phone: [facility] Start: 02-04-2024 End: 02-04-2024 ambulatory DO Mona Wilfredk Work Phone: [facility] Work Phone: Start: 01-19-2024 End: 01-19-2024 ambulatory MONA BLACKMANK Not Available Start: 12-07-2023 End: 12-07-2023 ambulatory MONA RESEE Not Available Start: 11-04-2023 End: 11-04-2023 ambulatory BIB ROA Not Available Start: 08-11-2023 End: 08-11-2023 ambulatory MONA REESE Not Available Start: 04-09-2023 End: 04-09-2023 Office outpatient visit 15 minutes Cely Marley MD Work Phone: [facility] Comment on above: Mixed hyperlipidemia (Primary Dx); Essential hypertension, benign; Obstructive sleep apnea syndrome Start: 01-31-2023 Refill Gordo bull MD Work Phone: Orthopaedics Start: 10-09-2022 End: 10-09-2022 ambulatory DO Mona Reese Work Phone: [facility] Work Phone: Start: 10-09-2022 End: 10-09-2022 Patient encounter procedure DO Mona Reese Work Phone: [facility] Work Phone: Start: 10-09-[address] Mona Reese Facility:[id number] Start: 07-06-2022 ambulatory Damian Gomez RT(R) Ra centeno Comment on above: Radiology XR Start: 07-06-2022 End: 07-06-2022 Patient encounter procedure Damian Gomez RT(R) TATYANA PHELPS Comment on above: S/P hip replacement, right (Primary Dx); Heterotopic ossification of joint Start: 07-06-2022 End: 07-06-2022 Subsequent hospital visit by physician Sabrina Nova 1 Work Phone: Radiology Comment on above: S/P hip replacement, right [Z96.641] Start: 04-10-2022 Office outpatient vi sit 15 minutes Mona Reese Work Phone: [facility] 250 DO Work Phone: Start: 04-10-2022 ambulatory Cely Marley Faci lity: Start: 01-16-2022 End: 01-16-2022 Subsequent hospital visit by physician Sabrina Nova 1 Work Phone: Radiology Comment on above: S/P hip replacement, right [Z96.641] Start: 12-29-2021 Refill Gordo bull MD Work Phone: Orthopaedics Start: 11-07-2021 End: 11-07-2021 Patient encounter procedure Gordo Nova MD Work Phone: Orthopaedics Comment on above: S/P hip replacement, right (Primary Dx) Start: 10-29-2021 End: 10-29-2021 Patient encounter procedure Lorna Ngo PA-C Work Phone: Orthopaedics Comment on above: S/P hip replacement, right (Primary Dx) Start: 10-29-2021 End: 10-29-2021 Subsequent hospital visit by physician Sabrina Nova 1 Work Phone: Radiology Comment on above: S/P hip replacement, right [Z96.641] Start: 09-10-2021 End: 09-10-2021 Admission to establishment [facility] Work Phone: [facility] Start: 09-10-2021 End: 09-10-2021 ambulatory [facility] 2 Work Phone: Pre Anesthesia Comment on above: Pre-op evaluation (P rimary Dx); Primary osteoarthritis of right hip; Primary hypertension Start: 09-10-2021 End: 09-10-2021 Preprocedural examination done [facility] Work Phone: [facility] Work Phone: Start: 09-10-2021 End: 09-10-2021 Patient encounter procedure Lorna Ngo PA-C Work Phone: Orthopaedics Comment on above: Primary osteoarthrit is of right hip (Primary Dx) Start: 06-19-2021 End: 06-19-2021 Subsequent hospital visit by physician Sabrina Nova 1 Work Phone: Radiology Comment on above: Primary osteoarthrit is of right hip [M16.11] Start: 03-13-2021 Office outpatient vi sit 25 minutes [facility] Start: 02-03-2021 End: 02-04-2021 ambulatory JOBY CEDILLO Facility:[facility]1 Start: 12-23-2020 End: 12-24-2020 ambulatory JOBY CEDILLO Facility:[facility] Start: 12-10-2020 End: 12-11-2020 ambulatory PRASANNA LEE Facility:[facility] Start: 12-03-2020 End: 12-04-2020 ambulatory JOBY CEDILLO Facility:[facility]1 Procedures Date Procedure Procedure Detail Performing Clinician Start: 02-09-2024 Plain X-ray of right hip DO Mona Reese Work Phone: Start: 12-03-2023 Lipid 1996 panel - S rossy or Plasma Xr 1 Work Phone: Start: 03-30-2023 Lipid 1996 panel - S rossy or Plasma Cely Marley MD Work Phone: Start: 07-06-2022 Radiologic examinati on pelvis 1/2 views Lorna DAMON-Herson Work Phone: Start: 01-16-2022 Radiologic examinati on pelvis 1/2 views Gordo Nova MD Work Phone: Start: 10-29-2021 Radiologic examinati on pelvis 1/2 views Lornatrang Ngo PA-Herson Work Phone: Start: 09-10-2021 Antibody screen Comment on above: Order Comment: Speci men Type: BLOOD SPECIMENOrdering Facility: [facility] Address: [address] [place], [place] [id number] Performed By: #### T [id number] ####LINA BLOOD BANKIA [id number] [place] [address] [place] Start: 06-19-2021 Radex hip unilateral with pelvis 2-3 views Gordo Nova MD Work Phone: Start: 12-12-2020 Total colonoscopy Timothy Reese Work Phone: Start: 06-24-2020 Colonoscopy Yuerong Ba gabriela ALVARADO Work Phone: Laser assisted in si tu keratomileusis Mona Reese Work Phone: Nerve block anesthesia Timothy Reese Work Phone: Operative procedure on knee Mona Reese Work Phone: Repair of shoulder Mona Reese Work Phone: Screening for malign ant neoplasm of colon Meera Daugherty Other Tonsillectomy Mona grimes Work Phone: Total replacement of hip Jonah Reese Work Phone: Plan of Treatment Date Care Activity Detail Author Start: 06-24-2030 Screening for malign ant neoplasm of colon [facility] Start: 12-02-2028 Lipid panel Lipid Screening [facility] Start: 03-30-2028 Lipid panel Lipid Panel [facility] Start: 02-03-2027 Diabetes Screening Diabetes Screenwen hayes [facility] Start: 04-20-2025 End: 04-20-2025 Patient encounter procedure 04/20/2025 9:20 AM EST Office Visit [facility] [address] [address] Cely Marley MD [address], [address] [place] [id number] [facility] Start: 2025 RSV Vaccine (1 - 1-d ose 75+ series) RSV Vaccine (1 - 1-dose 75+ series) [facility] Start: 10-08-2024 DIABETES SCREEN DIABETES SCREEN [facility] Start: 08-12-2024 Medicare Annual Wellness Visit Medicare Annual Wellness Visit (AWV) [facility] Start: 08-11-2024 Medicare Annual Wellness (AWV) Medicare Annual Wellness (AWV) [facility] Start: 07-13-2024 End: 04-12-2025 CBC W Auto Differential panel - Blood CBC and differential Lab Routine IFG (impaired fasting glucose) Expected: 07/13/2024 (Approximate), Expires: 04/12/2025 [facility] Work Phone: Comment on above: Expected: 07/13/2024 (Approximate), Expires: 04/12/2025 Start: 07-13-2024 End: 10-11-2024 Comprehensive metabolic 2000 panel - Serum or Plasma Comprehensive metabolic panel Lab Routine IFG (impaired fasting glucose) Expected: 07/13/2024 (Approximate), Expires: 10/11/2024 [facility] Comment on above: Expected: 07/13/2024 (Approximate), Expires: 10/11/2024 Start: 07-13-2024 End: 04-12-2025 Hemoglobin a1c with eag Hemoglobin a1c with eag Lab Routine IFG (impaired fasting glucose) Expected: 07/13/2024 (Approximate), Expires: 04/12/2025 [facility] Comment on above: Expected: 07/13/2024 (Approximate), Expires: 04/12/2025 Start: 07-12-2024 End: 07-12-2024 Patient encounter procedure 07/12/2024 2:30 PM EST Office Visit [facility] [address] [place] [id number] Mona Reese DO [address] [place] [address] [facility] Start: 04-14-2024 End: 04-14-2024 Patient encounter procedure 04/14/2024 9:30 AM EDT Office Visit [facility] [address] [place] [id number] Cely Marley MD [address] [place] [address] [facility] Start: 02-13-2024 Covid-19 Vaccine () Covid-19 Vaccine () [facility] Start: 02-13-2024 Influenza vaccination Influenza Vacc ine (#1) [facility] Start: 02-09-2024 Plain X-ray of right hip XR hip RT min 2V(w/wo pelvis)* [facility] Start: 02-09-2024 XR Hip - right 2 Views [facility] Start: 06-14-2023 Advance Directive Discussion Advance Directive Discussion [facility] Start: 05-24-2023 Zoster Vaccines (2 o f 2) Zoster Vaccines (2 of 2) [facility] Start: 04-09-2023 FUV, Provider: Cely Marley, Status: Pen, Time: 9:40 AM FUV, Provider: Cely Marley, Status: Pen, Time: 9:40 AM [facility] 250 DO Work Phone: Start: 02-12-2023 Influenza vaccination INFLUENZA (#1) [facility] Start: 09-10-2022 BP CONTROLLED (<130/80) BP CONTROLLE D (<130/80) [facility] Start: 06-14-2022 ADVANCE DIRECTIVE DISCUSSION ADVANCE DIRECTIVE DISCUSSION [facility] Start: 06-14-2022 DEPRESSION ASSESSMENT DEPRESSION ASS ESSMENT [facility] Start: 02-12-2022 Influenza vaccination INFLUENZA (#1) [facility] Start: 09-10-2021 End: 09-10-2022 ECG COMPLETE ECG COMPLETE ECG Routine Pre-op evaluation Primary osteoarthritis of right hip Expected: 09/10/2021, Expires: 09/10/2022 [facility] Work Phone: Comment on above: Expected: 09/10/2021 , Expires: 09/10/2022 Start: 06-14-2021 ADVANCE DIRECTIVE DISCUSSION ADVANCE DIRECTIVE DISCUSSION [facility] Start: 02-20-2021 COVID-19 VACCINE (3 - Booster for Moderna series) COVID-19 VACCINE (3 - Booster for Moderna series) [facility] Start: 11-15-2020 COVID-19 VACCINE (3 - Booster for Moderna series) COVID-19 VACCINE (3 - Booster for Moderna series) [facility] Start: 11-15-2020 COVID-19 VACCINE (3 - Moderna series) COVID-19 VACCINE (3 - Moderna series) [facility] Start: 2015 PNEUMOCOCCAL: 65+ (1 - PCV) PNEUMOCOCCAL: 65+ (1 - PCV) [facility] Start: 2015 PNEUMOVAX AGE 65 AND OVER WITH 5YR LOOKBACK (#1) PNEUMOVAX AGE 65 AND OVER WITH 5YR LOOKBACK (#1) [facility] Start: 05-16-2013 DIABETES SCREEN DIABETES SCREEN [facility] Start: 2000 SHINGRIX VACCINE (1 of 2) SHINGRIX VACCINE (1 of 2) [facility] Start: 1995 COLOGUARD (FIT-DNA) COLOGUARD (FIT-D NA) [facility] Start: 1995 Colonoscopy COLONOSCOPY [facility] Start: 1995 COLORECTAL CANCER SCREENING COLORECTAL CANCER SCREENING [facility] Start: [address] COLONOGRAPHY [facility] Start: 1995 FECAL OCCULT BLOOD FECAL OCCULT BLOO D [facility] Start: 1995 Screening for malign ant neoplasm of colon [facility] Start: 1995 SIGMOIDOSCOPY SIGMOIDOSCOPY [facility] Start: 1985 LIPID SCREEN LIPID SCREEN [facility] Start: 1972 DTaP/Tdap/Td Vaccine s (1 - Tdap) DTaP/Tdap/Td Vaccines (1 - Tdap) [facility] Start: 1969 Urine microalbumin profile [facility] Start: 1968 ANNUAL PCP TEAM UTILITY APPRAISER MASON DISEASE VISIT ANNUAL PCP TEAM CHRONIC DISEASE VISIT [facility] Start: 1968 Anxiety Screening Anxiety Screening [facility] Start: 1968 BP CONTROLLED (<130/80) BP CONTROLLE D (<130/80) [facility] Start: 1968 Depression Screening Depression Scre ening [facility] Start: 1968 HEPATITIS C SCREENING HEPATITIS C [facility] Start: 1968 Hepatitis C screening Hepatitis C [facility] Start: 1962 Adult depression screening assessment DEPRESSION SCREENING [facility] Start: 1956 PNEUMOCOCCAL: 65+ (1 - PCV) PNEUMOCOCCAL: 65+ (1 - PCV) [facility] Start: 1950 ABDOMINAL AORTIC ANEURYSM SCREENING ABDOMINAL AORTIC ANEURYSM SCREENING [facility] Start: 1950 Abdominal aortic aneurysm screening Abdominal Aortic Aneurysm Screening [facility] Start: 1950 Medicare Annual Wellness Visit Medicare Annual Wellness Visit (AWV) [facility] Start: 1950 Screening for malign ant neoplasm of colon [facility] End: 11-27-2022 Radiologic examination pelvis 1/2 views XR PELVIS 1V AP Radiology Routine S/P hip replacement, right 1 Occurrences starting 10/28/2021 until 11/27/2022 [facility] Work Phone: Comment on above: 1 Occurrences starti ng 10/28/2021 until 11/27/2022 [facility] Immunizations Immunization Date Immunization Notes Care Provider Falguni frye 04-04-2024 influenza, high dose seasonal, preservative-free Yuerong Shane HARD CANDY SPINNER Work Phone: [facility] 04-04-2024 RSV, recombinant, protein subunit RSVpreF, adjuvant reconstitu, 120mcg/0.5mL, PF (Arexvy) Yuerong Shane HARD CANDY SPINNER Work Phone: [facility] 07-21-2023 zoster vaccine recombinant Yuerong Shane HARD CANDY SPINNER Work Phone: [facility] 03-29-2023 influenza, seasonal, injectable Cely Marley MD Work Phone: [facility] Work Phone: 03-29-2023 Influenza, Seasonal, Quadrivalent, Adjuvanted Yuerong Shane HARD CANDY SPINNER Work Phone: [facility] 03-29-2023 zoster vaccine recombinant Yuerong Shane HARD CANDY SPINNER Work Phone: [facility] 03-29-2023 influenza virus vaccine, unspecified formulation Xr 1 Work Phone: [facility] 03-17-2022 influenza, seasonal, injectable Mona Reese Work Phone: [facility] 250 DO Work Phone: Comment on above: Series: 03-03-2022 influenza, high dose seasonal, preservative-free Mona Reese Work Phone: [facility] 2021 influenza, high dose seasonal, preservative-free Mona Felice Mary Ann Work Phone: [facility] 09-20-2020 Moderna COVID-19 Vaccine 100 MCG/0.5ML Intramuscular Suspension Mona Reese Work Phone: [facility] 250 DO Work Phone: 08-23-2020 Moderna COVID-19 Vaccine 100 MCG/0.5ML Intramuscular Suspension Mona Reese Work Phone: [place] [address] DO Work Phone: 03-21-2020 Fluad Quadrivalent 0 .5 ML Intramuscular Prefilled Syringe Mona Reese Work Phone: [place] [address] DO Work Phone: 03-21-2020 Seasonal trivalent influenza vaccine, adjuvanted, preservative free Cely Marley MD Work Phone: [facility] Work Phone: 03-16-2020 influenza, high dose seasonal, preservative-free Mona Viveros Taryneduardo Work Phone: [facility] 250 DO Work Phone: 03-30-2019 Seasonal trivalent influenza vaccine, adjuvanted, preservative free Mona Reese Work Phone: [facility] 03-14-2019 influenza, high dose seasonal, preservative-free Cely Marley MD Work Phone: [facility] Work Phone: 03-14-2019 influenza, injectabl e, quadrivalent, preservative free Mona Reese Work Phone: [facility] 250 DO Work Phone: 06-14-2018 influenza, seasonal, injectable Mona Reese Work Phone: [facility] 250 DO Work Phone: 06-14-2018 pneumococcal polysaccharide vaccine, 23 valent Mona Reese Work Phone: [place] [address] DO Work Phone: 03-08-2018 Seasonal trivalent influenza vaccine, adjuvanted, preservative free Mona Reese Work Phone: [facility] 04-02-2017 Flu vaccine, quadrivalent, high-dose, preservative free, age 65y+ (FLUZONE) Cely Marley MD Work Phone: [facility] Work Phone: 04-02-2017 influenza, high dose seasonal, preservative-free Mona Reese Work Phone: [facility] 10-30-2016 pneumococcal polysaccharide vaccine, 23 valent Mona Reese Work Phone: [facility] 05-01-2016 influenza, high dose seasonal, preservative-free Cely Marley MD Work Phone: [facility] Work Phone: 06-03-2015 influenza, seasonal, injectable, preservative free Cely Marley MD Work Phone: [facility] Work Phone: 06-03-2015 pneumococcal conjuga te vaccine, 13 valent Mona Reese Work Phone: [facility] 06-03-2015 seasonal influenza, intradermal, preservative free Mona Reese Work Phone: [place] [address] DO Work Phone: 04-08-2014 influenza, seasonal, injectable Mona Reese Work Phone: [facility] 250 DO Work Phone: 05-01-2009 novel [id number], preservative-free, injectable Mona Reese Work Phone: [facility] 250 DO Work Phone: 04-03-1999 pneumococcal polysaccharide vaccine, 23 valent Mona Reese Work Phone: [facility] 250 DO Work Phone: Payers Date Payer Category Payer Self-pay [id number] 2021 Private Health Insurance [employer] [id number] 2020 Unknown MMO MMO MEDICARE SUPPLEMENT [id number] 2020-Present [phone] [address] [place] [address] Indemnity [id number] 2020 Unknown 2015 Medicare MEDICARE MEDICAR E A AND B [id number] 2015-Present [phone] [address] [address] [place] [address] Medicare [id number] 2015 Medicare [id number] 1959 Medicare [id number] 1959 Unknown [id number] 1950 Unknown [id number] 2.16.840.1.809408.3.579.2. 593 1950 Unknown [id number] 2.16.840.1.451191.3.579.2. 593 1950 Unknown [id number] 2.16.840.1.475007.3.579.2. 593 1950 Unknown [id number] 2.16.840.1.598876.3.579.2. 593 1950 Unknown [id number] 2.16.840.1.224261.3.579.2. 356 1950 Unknown [id number] 2.16.840.1.980973.3.579.2. 356 1950 Unknown [id number] 2.16.840.1.640438.3.579.2. 1259 1950 Unknown [id number] 2.16.840.1.770753.3.579.2. 1259 1950 Unknown [id number] 2.16.840.1.142895.3.579.2. 1259 1950 Unknown [id number] 2.16.840.1.291994.3.579.2. 1259 1950 Unknown [id number] 2.16.840.1.019723.3.579.2. 1259 1950 Unknown [id number] 2.16.840.1.748065.3.579.2. 1259 1950 Unknown [id number] 2.16.840.1.055848.3.579.2. 1244 Unknown [id number] 2.16.840.1.349187.3.579.2. 531 Unknown [id number] 2.16.840.1.031374.3.579.2. 531 Unknown [id number] 2.16.840.1.853141.3.579.2. 531 Unknown [id number] 2.16.840.1.084833.3.579.2. 531 Unknown [id number] 2.16.840.1.404750.3.579.2. 531 Social History Date Type Detail Facility Start: 09-10-2021 End: 12-29-2022 Tobacco smoking status NHIS Ex-smoker [facility] Work Phone: Start: 06-14-1969 End: 06-14-1994 History of tobacco use Current smoker [facility] Work Phone: Start: 09-10-2021 End: 04-14-2024 Alcohol intake Current drinker of alcohol (finding) [facility] Start: 09-10-2021 History SDOH Alcohol Comment SOCIAL 3x/week [facility] Start: 1950 Sex Assigned At Male C [facility] Start: 05-05-2021 End: 04-14-2024 Exposure to SARS-CoV-2 (event) Not sure [facility] Start: 09-10-2021 End: 04-14-2024 Sex Assigned At [employer] [facility] [employer] Other Start: 09-10-2021 End: 04-14-2024 No illicit drug use No illicit drug use [place] [id number] DO Work Phone: Comment on above: pipe smoker - quit 1 [phone]; Start: 06-14-1969 End: 06-14-1994 History of tobacco use Cigarette Smoker [facility] Start: 09-10-2021 End: 12-29-2022 Tobacco use and exposure Smokeless tobacco non-user [facility] Start: 12-18-2021 End: 12-18-2021 Tobacco smoking status SCIS Never smoked tobacco (finding) [facility] National Score (1-100), lower number is lower risk 75 [facility] Start: 08-26-2021 Gender identity Identifies as male gender (finding) [facility] Start: 08-26-2021 Sexual orientation Heterosexual (angela centeno) [facility] Start: 04-09-2023 Tobacco use and exposure Former smokeless tobacco user [facility] Work Phone: Start: 1950 Sex Assigned At Not on file [facility] Work Phone: How often to you hav e a drink containing alcohol? 2-3 time sa week [facility] How many standard drinks containing alcohol do you have on a typical day? 1 or 2 [facility] How often do you hav e 6 or more drinks on 1 occasion? Never [facility] Start: 12-29-2022 Alcohol Comment caffeine: 1 ne rgy drink in the morning [facility] Start: 04-26-2024 Sex Male (finding) [facility] Medical Equipment Procedure Code Equipment Code Equipment Origin al Text Equipment Identifier Dates Mdm Liner X3 Ins ert 48mm X 28mm [id number] Start: 10-07-2021 Liner Mdm 42mm E Cocr Acetabular 2 Mobility Modular Hip - [id number] Start: 10-07-2021 Head V40 Lfit 28 mm -4mm Offset Taper Cocr Femoral Primary Hip - [id number] Start: 10-07-2021 Shell Trident Ii 52mm E Tritanium Acetabular 5 Screw Hole Cluster Sterile - [id number] Start: 10-07-2021 Stem Accolade Ii 9 132d Femoral - [id number] Start: 10-07-2021 Clinical Notes 01-12-2010 to 04-14-2024 Cely Marley MD - 04/14/2024 9:30 AM EDTPatient InstructionsAttaColin Roa NP - 04/12/2024 2:30 PM EDTPatient Instructions Note Date & Type Note Facility 04-14-2024 History of Present illness Narrative Subjective Meera Mckoy is a 74 y.o. male Chief Complaint Follow-up HPI Patient is here for follow-up to management for history of mild exertional shortness of breath, hypertension hyperlipidemia. Since last time I saw him he continued to have similar symptoms and similar functional status. He denies chest pain. He underwent extensive evaluation in the past but appears to be negative. His calcium scoring showed scoring for last than 100. The patient underwent recent echocardiogram that showed normal LV systolic function. He is known to have history of mild aortic stenosis. His recent echo was of suboptimal quality. ASSESSMENT: 1. Mild exertional shortness of breath negative cardiac workup several years ago. He remains reasonably active with no changes in cardiac status or symptoms I suspect this is due to his overweight and age. His recent echo showed preserved LV systolic function 2. Elevated risk for ischemic heart disease based on risk profile. However his calcium scoring was relatively low at 70 for a few years back 3. Hypertension, controlled. 4. Hyperlipidemia, is on atorvastatin LDL around 100 5. Obesity with no significant weight changes 6. Mild aortic stenosis 7. Intermittent edema due to amlodipine RECOMMENDATION: 1. We discussed regarding losing weight, exercise, risk factor adjustment. 2. Reviewed with him his recent lab work. I suggested switching atorvastatin to rosuvastatin 40 mg daily and attempt to improve risk factor management 3. Follow-up in 1 year and advised him to forward copy of his lab when it is done 4. Patient advised to notify of change in cardiac status or symptoms 5. I reviewed his recent echo and his lab work Review of Systems Cardiovascular: Positive for dyspnea on exertion and leg swelling. All other systems reviewed and are negative. Vitals: 04/14/24 0950 BP: 138/76 BP Location: Left arm Patient Position: Sitting Pulse: 78 Weight: 112 kg (247 lb) Height: 1.778 m (5' 10 ) Objective Physical Exam Constitutional: Appearance: Normal appearance. HENT: Nose: Nose normal. Neck: Vascular: No carotid bruit. Cardiovascular: Rate and Rhythm: Normal rate. Pulses: Normal pulses. Heart sounds: Murmur heard. Systolic murmur is present with a grade of 1/6. Pulmonary: Effort: Pulmonary effort is normal. Abdominal: General: Bowel sounds are normal. Palpations: Abdomen is soft. Musculoskeletal: General: Normal range of motion. Cervical back: Normal range of motion. Right lower leg: No edema. Left lower leg: No edema. Skin: General: Skin is warm and dry. Neurological: General: No focal deficit present. Mental Status: He is alert. Psychiatric: Mood and Affect: Mood normal. Behavior: Behavior normal. Thought Content: Thought content normal. Judgment: Judgment normal. Allergies Patient has no known allergies. Current Medications Current Outpatient Medications: allopurinol (Zyloprim) 100 mg tablet, Take 1 tablet (100 mg) by mouth once daily in the morning., Disp: , Rfl: amLODIPine (Norvasc) 5 mg tablet, Take 0.5 tablets (2.5 mg) by mouth once daily., Disp: , Rfl: brimonidine (AlphaGAN) 0.2 % ophthalmic solution, , Disp: , Rfl: cholecalciferol (Vitamin D-3) 25 MCG (1000 UT) tablet, Take 1 tablet (1,000 Units) by mouth once daily., Disp: , Rfl: diphenhydrAMINE (Sominex) 25 mg tablet, Take 1 tablet (25 mg) by mouth as needed at bedtime., Disp: , Rfl: dorzolamide-timoloL (Cosopt) 22.3-6.8 mg/mL ophthalmic solution, Administer 1 drop into both eyes every 12 hours., Disp: , Rfl: losartan (Cozaar) 100 mg tablet, Take 1 tablet (100 mg) by mouth once daily at bedtime., Disp: , Rfl: sildenafil (Viagra) 100 mg tablet, Take 0.5 tablets (50 mg) by mouth if needed. 30-60 minutes before sexual intercourse, Disp: , Rfl: tadalafil (Cialis) 10 mg tablet, As directed, Disp: , Rfl: tirzepatide, weight loss, (Zepbound) 10 mg/0.5 mL injection, Inject 10 mg under the skin every 7 days., Disp: , Rfl: zolpidem (Ambien) 10 mg tablet, Take 1 tablet (10 mg) by mouth once daily as needed for sleep., Disp: , Rfl: rosuvastatin (Crestor) 40 mg tablet, Take 1 tablet (40 mg) by mouth once daily., Disp: 90 tablet, Rfl: 3 Assessment/Plan 1. Shortness of breath Follow Up In Cardiology 2. Agatston coronary artery calcium score less than 100 rosuvastatin (Crestor) 40 mg tablet 3. Essential hypertension, benign Follow Up In Cardiology 4. Mixed hyperlipidemia Follow Up In Cardiology rosuvastatin (Crestor) 40 mg tablet 5. Mild aortic stenosis 6. BMI 35.0-35.9,adult 7. Localized edema Scribe Attestation By signing my name below, I, Elsy Wang Soria LPN attest that this documentation has been prepared under the direction and in the presence of Cely Marley MD. Provider Attestation - Scribe documentation All medical record entries made by the Scribe were at my direction and personally dictated by me. I have reviewed the chart and agree that the record accurately reflects my personal performance of the history, physical exam, discussion and plan. documented in this encounter [facility] Work Phone: 04-14-2024 Instructions Elsy Lara LPN - 04/14/2024 9:30 AM EDT Please bring all medicines, vitamins, and herbal supplements with you when you come to the office. Prescriptions will not be filled unless you are compliant with your follow up appointments or have a follow up appointment scheduled as per instruction of your physician. Refills should be requested at the time of your visit. BMI was above normal measurement. Current weight: 112 kg (247 lb) Weight change since last visit (-) denotes wt loss 11 lbs Weight loss needed to achieve BMI 25: 73.1 Lbs Weight loss needed to achieve BMI 30: 38.4 Lbs Provided instructions on dietary changes Provided instructions on exercise. The following attachments cannot be sent through Care Everywhere.Heart Healthy Diet (Japanese)documented in this encounter [facility] Work Phone: 04-12-2024 History of Present illness Narrative Images from the original note were not included. Meera Mckoy is a 74 y.o. male presents with chief complaint of 2 Month Follow Up ([facility] [place] Semiglutide) HPI: HPI History of Present Illness The patient presents for evaluation of weight loss. He is currently on a regimen of Mounjaro, which has been effective in suppressing his appetite. He reports no adverse effects from the medication. His weight has decreased to 241 pounds as of yesterday. He is also undergoing physical therapy for his back and hip issues. He has declined the option to consult with a dietitian. HISTORIES: PAST MEDICAL HISTORY: Past Medical History: Diagnosis Date Agatston coronary artery calcium score less than 100 Allergic rhinosinusitis Anxiety 08/16/2023 Bilateral nephrolithiasis Cervical spondylosis without myelopathy COVID-19 URI breakthrough recieved ab infusion Esophagitis Essential hypertension (CMS/HCC) History of colonic polyps History of right hip replacement 12/30/2022 IFG (impaired fasting glucose) Insomnia Nontraumatic complete tear of right rotator cuff Obstructive sleep apnea (adult) (pediatric) Primary osteoarthritis of both knees Prostate cancer (CMS/HCC) 2010 GS 6 w/ brachytherapy Proteins serum plasma low Pure hypercholesterolemia ([facility]) Restless leg syndrome Thrombophlebitis 12/30/2022 Vitamin B12 deficiency Vitamin D deficiency SURGICAL HISTORY: Past Surgical History: Procedure Laterality Date CARPAL TUNNEL RELEASE Right 2016 CATARACT EXTRACTION Bilateral 09/2023 COLONOSCOPY W/ POLYPECTOMY HIP SURGERY Right 10/07/2021 Dr. Pack KNEE CARTILAGE SURGERY Left RI ARTHROCENTESIS ASPIR&/INJ INTERM JT/BURS W/O US Right RI ARTHROCENTESIS ASPIR&/INJ MAJOR JT/BURSA W/O US Left RI CV STRS TST XERS&/OR RX CONT ECG W/SI&R myoview SHOULDER SURGERY Left SOCIAL HISTORY: Social History Tobacco Use Smoking status: Former Current packs/day: 0.00 Types: Cigarettes Start date: 1969 Quit date: 1994 Years since quittin.8 Smokeless tobacco: Never Substance Use Topics Alcohol use: Yes Comment: caffeine: 1 nergy drink in the morning Drug use: Never Depression: Not at risk (08/11/2023) PHQ-2 PHQ-2 Score: 0 FAMILY HISTORY: Family History Problem Relation Name Age of Onset Cervical cancer Mother Hypertension Mother Heart disease Mother Stroke Mother Hypertension Father Heart disease Father Stroke Father MEDICATIONS: Current Outpatient Medications Medication Instructions amLODIPine (NORVASC) 2.5 mg, Oral, Daily aspirin (ASPIRIN) 81 mg, Every 24 hours atorvastatin (LIPITOR) 40 mg, Daily brimonidine (AlphaGAN P) 0.2 % ophthalmic solution cholecalciferol (VITAMIN D-3) 1,000 Units, Every 24 hours cyanocobalamin (VITAMIN B-12) 500 mcg, Oral, Daily diphenhydrAMINE (BENADRYL ALLERGY) 25 mg, Nightly PRN dorzolamide-timolol (Cosopt) 2-0.5 % ophthalmic solution 1 drop, Every 12 hours latanoprost (Xalatan) 0.005 % ophthalmic solution 1 drop, Every 24 hours losartan (COZAAR) 100 mg, Oral, Nightly Mounjaro 10 mg, Subcutaneous, Weekly sildenafil (VIAGRA) 50 mg, Oral, Daily PRN tadalafil (Cialis) 10 MG tablet As directed timolol (Timoptic) 0.25 % ophthalmic solution Every 24 hours zolpidem (AMBIEN) 10 mg, Oral, Nightly PRN ALLERGIES: No Known Allergies PHYSICAL EXAM: Visit Vitals BP 120/70 Pulse 81 Ht 5' 10 Wt 242 lb SpO2 94% BMI 34.72 kg/m Smoking Status Former BSA 2.33 m BP Readings from Last 3 Encounters: 04/12/24 120/70 02/09/24 120/70 01/19/24 140/70 Wt Readings from Last 3 Encounters: 04/12/24 242 lb 02/09/24 252 lb 01/19/24 252 lb Physical Exam Constitutional: Appearance: Normal appearance. Comments: Has central obesity Neck: Vascular: No carotid bruit. Cardiovascular: Rate and Rhythm: Normal rate and regular rhythm. Comments: Soft systolic murmur Pulmonary: Effort: Pulmonary effort is normal. Breath sounds: Normal breath sounds. Abdominal: General: Bowel sounds are normal. Palpations: Abdomen is soft. Musculoskeletal: General: No swelling. Neurological: Mental Status: He is alert. Physical Exam Vital Signs Weight is 242. Results ASSESSMENT AND PLAN: Assessment & Plan 1. Obesity His weight has decreased from 252 to 242 over the past 2 months. He is currently on Mounjaro 10 mg, with the maximum allowable dose being 15 mg. The dosage of Mounjaro will be maintained at 0.33 ml for now as it is more cost-effective. He is advised to maintain a healthy diet and regular exercise regimen. Blood work will be conducted in 3 months to monitor sugar levels and liver enzymes. If the current dosage becomes less effective, the dose may be increased. 2. Chronic back pain He is currently undergoing physical therapy for back and hip issues. He is advised to continue with resistance exercises to aid in weight loss and maintain muscle mass. Follow-up Return in 3 months for follow up. Diagnosis Plan 1. IFG (impaired fasting glucose) CBC and differential Comprehensive metabolic panel Hemoglobin a1c with eag CBC and differential Comprehensive metabolic panel Hemoglobin a1c with eag 2. Agatston coronary artery calcium score less than 100 3. Essential hypertension (CMS/HCC) 4. Morbid obesity (CMS/HCC) Patient is here for follow up of chronic conditions. I am following Dr Reese's established plan of care for these issues. Dr Reese is in the office suite today and is supervising patient care. documented in this encounter [facility] 04-12-2024 Instructions Bib Roa NP - 04/12/2024 2:30 PM EDT Aim for 150 mins to 300 mins of exercise a week including cardio and resistance exercise. However, no dose of physical activity is too small to be beneficial. Try exercise snack , doing 1 min of exercise multiple times a day. Examples include walking, squats, countertop pushups, going up and down stairs... 15 mins of walk a day has 10% reduction in all cause mortality ( from any acute or chronic illnesses). Studies have shown low-fit adults, 60-90 years of age, are 3.3-4.3 times more likely to than their age matched high-fit counterparts. The benefit of exercise is immediate after just bouts of exercise. Moderate to vigorous exercise is beneficial in psychological, anti-arrhythmic, anti-thrombotic, anti-atherosclerotic, and anti-ischemic aspects. documented in this encounter [facility] 02-09-2024 Evaluation note Diagnosis Onset Date Resolution Greater trochanteric bursitis of right hip acute January 8:59am Heterotopic ossification of joint acute January 8:59am History of total hip arthroplasty acute February 08 8:59am [facility] Work Phone: 1(625) 396-721710-27-2023 History of Present illness Narrative* Cely Marley MD - 04/09/2023 9:40 AM EDT Subjective Meera Mckoy is a 73 y.o. male Chief Complaint Annual Exam HPI Patient is here for follow-up and management for history of hypertension, hyperlipidemia and remoteevaluation for shortness of breath. His cardiac work-up in the past had been negative. He denies lightheadedness, dizziness or syncope. He described functional class I. ASSESSMENT: 1. Remote evaluation for shortness of breath and chest pain with negative cardiac workup several years ago. He remains reasonably active with no changes in cardiac status or symptoms 2. Elevated risk for ischemic heart disease based on risk profile. However his calcium scoring was relatively low at 70 for a few years back 3. Hypertension, controlled. 4. Hyperlipidemia, is on atorvastatin and controlled 5. Obesity with 12 pound weight gain 6. Patient complaining of right hip pain following his recent surgery RECOMMENDATION: 1. We discussed regarding losing weight, exercise, risk factor adjustment. 2. Reviewed with him his recent lab work 3. Follow-up in 1 year and advised him to forward copy of his lab when it is done 4. Patient advised to notify of change in cardiac status or symptoms Review of Systems All other systems reviewed and are negative. Visit Vitals BP 106/68 (BP Location: Right arm, Patient Position: Sitting) Pulse 68 Ht 1.803 m (5' 11 ) Wt 107 kg (236 lb) BMI 32.92 kg/m Smoking Status Never BSA 2.31 m Objective Physical Exam Constitutional: Appearance: Normal appearance. He is normal weight. HENT: Nose: Nose normal. Neck: Vascular: No carotid bruit. Cardiovascular: Rate and Rhythm: Normal rate. Pulses: Normal pulses. Heart sounds: Normal heart sounds. Pulmonary: Effort: Pulmonary effort is normal. Abdominal: General: Bowel sounds are normal. Palpations: Abdomen is soft. Genitourinary: Rectum: Normal. Musculoskeletal: General: Normal range of motion. Cervical back: Normal range of motion. Right lower leg: No edema. Left lower leg: No edema. Skin: General: Skin is warm and dry. Neurological: General: No focal deficit present. Mental Status: He is alert. Psychiatric: Mood and Affect: Mood normal. Behavior: Behavior normal. Thought Content: Thought content normal. Judgment: Judgment normal. Current Medications Current Outpatient Medications: allopurinol (Zyloprim) 100 mg tablet, Take 1 tablet (100 mg) by mouth once daily in the morning., Disp: , Rfl: amLODIPine (Norvasc) 5 mg tablet, Take 1 tablet (5 mg) by mouth once daily., Disp: , Rfl: atorvastatin (Lipitor) 40 mg tablet, Take 1 tablet (40 mg) by mouth once daily in the morning., Disp: , Rfl: brimonidine (AlphaGAN) 0.2 % ophthalmic solution, , Disp: , Rfl: cholecalciferol (Vitamin D-3) 25 MCG (1000 UT) tablet, Take 1 tablet (1,000 Units) by mouth once daily., Disp: , Rfl: diphenhydrAMINE (Sominex) 25 mg tablet, Take 1 tablet (25 mg) by mouth as needed at bedtime., Disp:, Rfl: dorzolamide-timoloL (Cosopt) 22.3-6.8 mg/mL ophthalmic solution, Administer 1 drop into both eyes every 12 hours., Disp: , Rfl: losartan (Cozaar) 100 mg tablet, Take 1 tablet (100 mg) by mouth once daily at bedtime., Disp: , Rfl: Ozempic 2 mg/dose (8 mg/3 mL) pen injector, Inject under the skin 1 (one) time per week., Disp: , Rfl: sildenafil (Viagra) 100 mg tablet, Take 0.5 tablets (50 mg) by mouth if needed. 30-60 minutes before sexual intercourse, Disp: , Rfl: tadalafil (Cialis) 10 mg tablet, As directed, Disp: , Rfl: tamsulosin (Flomax) 0.4 mg 24 hr capsule, Take 1 capsule (0.4 mg) by mouth once daily in the morning., Disp: , Rfl: zolpidem (Ambien) 10 mg tablet, Take 1 tablet (10 mg) by mouth once daily as needed for sleep., Disp: , Rfl: Assessment/Plan 1. Mixed hyperlipidemia 2. Essential hypertension, benign 3. Obstructive sleep apnea syndrome documented in this [facility] Work Phone: 1([phone]) 144-348510-27-2023 Instructions* Patient Instructions* Kelli Mitchell LPN - 04/09/2023 9:40 AM EDT Please bring all medicines, vitamins, and herbal supplements with you when you come to the office. Prescriptions will not be filled unless you are compliant with your follow up appointments or have a follow up appointment scheduled as per instruction of your physician. Refills should be requested at the time of your visit. Fall Prevention Education Given Retrieve lab One [facility]: 1(340) 220-291408-20-2023 Miscellaneous Notes* Telephone Encounter - Gordo Nova MD - 01/31/2023 11:21 AM EDT rx [facility] to [facility] patient notified Gordo Nova II, MD [facility] Instructions* Patient Instructions* Lorna Ngo PA-C - 07/06/2022 10:36 AM EST Gentle stretching daily. Take Indomethicin 75mg twice a day WITH FOOD. Chair squats and/or leg press weight exercises to improve quadriceps strength for getting out of a chair. Followup in 3 months. [facility] History of Present illness Narrative* Lorna Ngo PA-C - 07/06/2022 10:05 AM EST This document has been created with the use of voice recognition technology. It may contain inaccuracies: misspellings, inaccurate syntax or word sense that escaped review. Chief complaint: Recheck of right hip Right THR 10/07/2021 (8 months) HISTORY: Meera is a 72 year old male. Patient comes in today for follow up Of his right hip. Patient has a past medical history, medications and allergies were reviewed. He reports Of his right hip with complaints of stiffness and difficulty getting up from a seated position. He also reports constant achiness in the hip and occasional sharp pain. Was told by his PCP that he probably has psoas irritation. He has been taking aspirin and occasionally using Voltaren gel. He notes that he is able towalk 5 miles a day and ride his bike. The problem is getting out of a chair. He has been trying to stretch and exercise at home. Pain level is anywhere from a 1 to a 9 out of 10 depending on activities. Seems to be getting worse rather than better and he is frustrated. No other musculoskeletal complaints PAST MEDICAL HISTORY Diagnosis Date Bone Spurs LT SHOULDER Elevated PSA High cholesterol GOOD WITH MEDS Kidney stone 05/26/2016 Low back pain radiating to right leg Shoulder pain RT Torn meniscus BILATERAL 12 YEARS AGO LEFT KNEE- 04/22 RT KNEE PAST SURGICAL HISTORY Procedure Laterality Date ARTHROCENTESIS ASPIR&/INJ MAJOR JT/BURSA W/O US 02/21/10 INJECT KNEE LEFT performed by YESENIA ARCEO at OR ARTHROSCOPIC KNEE SURGERY 2008- RT LT KNEE ALSO 12 YEARS AGO ARTHRS KNE SURG W/MENISCECTOMY MED/LAT W/SHVG 02/21/10 ARTHROSCOPY KNEE WITH MENISCECTOMY MEDIAL OR LATERAL AND MENISCAL SHAVING performed by PHILIP ARCEO at OR BONE SPURS REMOVED SHOULDER TONSILLECTOMY HX AGE 18 VASECTOMY UNI/BI SPX W/POSTOP SEMEN EXAMS 22 YEARS AGO Medications reviewed. ALLERGIES Allergen Reactions Seasonal Allergies Unknown Social History Tobacco Use Smoking status: Former Types: Cigarettes Quit date: 06/14/1979 Years since quittin.0 Smokeless tobacco: Never Tobacco comments: SMOKED PIPE FOR 10 YEARS Substance Use Topics Alcohol use: Yes Comment: SOCIAL 3x/week Drug use: No Comment: denies tx for substance and alcohol abuse in the past EXAMINATION: GENERAL: Appears healthy, well-nourished, no deformities. ORIENTATION: Alert and oriented to person place and time HABITUS: Normal GAIT: Ambulates with a relatively normal gait On physical exam of the right hip today, he has flexion to 80 degrees with a firm endpoint and somediscomfort at extreme in the groin. Good abduction and abduction. Good internal and external rotation. No significant tenderness about the hip. Good knee range of motion without irritability. Still some quad deconditioning on the right compared to the left. Negative SLR for radicular symptoms. Neurovascularly is intact. RADIOGRAPHS: Personally reviewed by myself and with the patient today demonstrating fairly significant heterotopic ossification which is progressed postoperatively. None noted on initial postoperative x-ray at 3 weeks. THR components in satisfactory position with good interfaces noted. No evidence of wear or loosening. IMPRESSION: Encounter Diagnosis ICD-10-CM 1. S/P hip replacement, right Z96.641 indomethacin ER 75 mg CR capsule 2. Heterotopic ossification of joint M25.80 indomethacin ER 75 mg CR capsule Plan: We discussed that he has developed heterotopic ossification of the right hip soft tissues. Discussed that there is not great treatment options at this point other than eventually resection if it bothers him enough though it can even come back thereafter. He has had 2 knee replacements withoutproblems. 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 Suggest that we tryindomethacin to see if we can prevent further ossification. Prescription was dispensed after discussion of its use and precautions. Should be taken with food. Discussed gentle stretching exercises. Discussed some strengthening exercises to help address quad deconditioning which should improve his ability getting out of a chair. He will follow-up in 3 months for annual recheck. Sooner problems arise. He agrees with this plan. Lorna Ngo PA-C July 06, 2022 10:06 AM documented in this encounterC[facility] History of Present illness Narrative* RT Sanchez(R) - 07/06/2022 9:37 AM EST Radiology Service Progress Note PATIENT NAME: Meera Mckoy DATE OF SERVICE: July 06, 2022 TIME: 9:37 AM PATIENT IDENTITY VERIFICATION COMPLETED USING TWO (2) IDENTIFIERS: Name and Date of confirmedby patient verbally. FALL SCREENING: Has the patient had 2 falls in the last year or 1 fall with injury or currently using an Ambulatory Assistive Device (Walker, Cane, Wheelchair, Crutches, etc.)? No PATIENT GENDER DATA: Male PATIENT RELEVANT IMPLANT DATA REVIEWED: Not Applicable RADIOLOGY DEPARTMENT: General X-ray: Exam(s) Completed: Pelvis X-Ray: Pelvis General AP PERIPHERAL IV DATA: Not applicable SIGNED BY: RT Sanchez(R) July 06, 2022 9:37 AM documented in this encounterCleveland [facility]08-05-2022 NoteHNO ID: [id number] Author: Gordo Nova MD Service: ? Author Type: Physician Type: Progress Notes Filed: 01/16/2022 4:48 PM Note Text: see dictated note Gordo Nova II, [place]08-05-2022 NoteHNO ID: [id number] Author: Gordo Nova MD Service: Orthopaedic Surgery Author Type: Physician Type: Progress Notes Filed: 01/20/2022 3:07 PM Note Text: [facility] [address] [place] [address] CLINIC NOTE Department of Orthopaedics - [place] Gordo Nova II, M.D. NAME: MEERA MCKOY [facility] NO.: [id number] DATE OF SERVICE: 01/16/2022 CHIEF COMPLAINT: Recheck of right hip. Right THR, 10/07/2021 - 3 months. The patient is doing well with his hip. He has lost 40 pounds since surgery. He has no symptoms. His x-rays of the hip look excellent. Dictated By: Gordo Nova II, M.D. Date Dictated: 01/19/2022 Date Typed: [facility] 01/20/2022 JOB# [id number] [facility]08-05-[facility]22 NoteHNO ID: [id number] Author: RT Flavia(R) Service: ? Author Type: Technologist Type: Progress Notes Filed: 01/16/2022 11:03 AM Note Text: Radiology Service Progress Note PATIENT NAME: Meera Mckoy DATE OF SERVICE: January 16, 2022 TIME: 11:03 AM PATIENT IDENTITY VERIFICATION COMPLETED USING TWO (2) IDENTIFIERS: Name and Date of confirmed by patient verbally. FALL SCREENING: Has the patient had 2 falls in the last year or 1 fall with injury or currently using an Ambulatory Assistive Device (Walker, Cane, Wheelchair, Crutches, etc.)? No PATIENT GENDER DATA: Male PATIENT RELEVANT IMPLANT DATA REVIEWED: Not Applicable RADIOLOGY DEPARTMENT: General X-ray: Exam(s) Completed: Pelvis X-Ray: Pelvis General AP PERIPHERAL IV DATA: Not applicable SIGNED BY: RT Flavia(R) January 16, 2022 11:03 [facility]08-05-2022 History of Present illness Narrative* Ludmila James RT(R) - 01/16/2022 10:50 AM EDT Radiology Service Progress Note PATIENT NAME: Meera Mckoy DATE OF SERVICE: January 16, 2022 TIME: 11:03 AM PATIENT IDENTITY VERIFICATION COMPLETED USING TWO (2) IDENTIFIERS: Name and Date of confirmedby patient verbally. FALL SCREENING: Has the patient had 2 falls in the last year or 1 fall with injury or currently using an Ambulatory Assistive Device (Walker, Cane, Wheelchair, Crutches, etc.)? No PATIENT GENDER DATA: Male PATIENT RELEVANT IMPLANT DATA REVIEWED: Not Applicable RADIOLOGY DEPARTMENT: General X-ray: Exam(s) Completed: Pelvis X-Ray: Pelvis General AP PERIPHERAL IV DATA: Not applicable SIGNED BY: RT Flavia(R) January 16, 2022 11:03 AM documented in this encounterC[facility]07-18-2022 Miscellaneous Notes* Telephone Encounter - Gordo Nova MD - 12/29/2021 11:54 AM EDT rx sent to pharmacy on file Gordo Nova II, MD documented in this encounterC[facility]05-28-2022 NoteHNO ID: [id number] Author: Gordo Nova MD Service: ? Author Type: Physician Type: Progress Notes Filed: 11/08/2021 3:15 PM Note Text: SEE DICTATED NOTE Gordo Nova II, [place]05-28-2022 History of Present illness Narrative* Gordo Nova MD - 11/08/2021 3:14 PM EDT SEE DICTATED NOTE Gordo Nova II, MD documented in this encounterCleveland Clinic [facility]05-27-2022 NoteHNO ID: [id number] Author: Gordo Nova MD Service: Orthopaedic Surgery Author Type: Physician Type: Progress Notes Filed: 11/12/2021 4:04 PM Note Text: [facility] [address] [place], [place] [address] CLINIC NOTE Department of Orthopaedics - Katrina Nova II, M.D. NAME: MEERA MCKOY [facility] NO.: [id number] DATE OF SERVICE: 11/07/2021 CHIEF COMPLAINT: Recheck of right hip. Right THR, 10/07/2021 - 4 and a half weeks. Incision area has healed very nicely and the area of rotation from the dressing tape has been completely healed. Okay to gradually resume full activities. Dictated By: Gordo Nova II, M.D. Date Dictated: 11/07/2021 Date Typed: [facility] 11/07/2021 JOB# [id number] [facility]05-18-2022 NoteHNO ID: [id number] Author: Lorna Ngo PA-C Service: ? Author Type: Physician Anatomical Embalmer Type: Progress Notes Filed: 10/29/2021 5:36 PM Note Text: Patient is here for unscheduled recheck of his right hip wound. He has sent pictures beginning when he remove the Silverlon dressing and noted a significant skin tear at the posterior aspect of the hip where the dressing had been removed. The incision itself was healing excellently. However he is having increasing soreness and increasing swelling at the lateral aspect of the hip which had him concerned. Asked him to come in for evaluation today. Right THR 10/07/2021 On exam of the right hip today the wound itself is healing satisfactorily with no sign of infection. Has a healing skin tear of significant size which is dry and intact. He does have moderate localized swelling and tightness at the lateral aspect of the hip but no more than would be considered normal at this stage postoperatively. Good hip range of motion with minor irritability. Ambulating with a stifflegged gait. We discussed wound care for both the incision and the skin tear. These are both healing well. Discussed soft tissue massage at the lateral aspect of the hip to help decrease tightness and swelling. May advance his weightbearing as tolerated. Was given my phone number if there is any concerns over the weekend. He will send us a photo again on Wednesday. We will keep his regularly scheduled postop visit. I have reassured him that this does not look like infection.[facility]05-18-2022 NoteHNO ID: [id number] Author: Lorna Ngo PA-C Service: ? Author Type: Physician Anatomical Embalmer Type: Progress Notes Filed: 10/29/2021 2:27 PM Note Text: This document has been created with the use of voice recognition technology. It may contain inaccuracies such as misspellings, inaccurate syntax or word sense that escaped review. Chief complaint: Recheck of right hip Right THR 10/07/2021 (3 weeks) HISTORY: Meera is a 71 year old male. Patient comes in today for follow up of his right hip wound and swelling. He reports the hip itself is a bit more achy and stiff but he has been a lot more active as well. He states pain is well controlled with Tylenol and using the oxycodone only when he needs it at night. Making good progress with physical therapy. Pain level 2/10. Notes that the swelling seems to be going down. No other musculoskeletal complaints PAST MEDICAL HISTORY Diagnosis Date - Bone Spurs LT SHOULDER - Elevated PSA - High cholesterol GOOD WITH MEDS - Kidney stone 05/26/2016 - Low back pain radiating to right leg - Shoulder pain RT - Torn meniscus BILATERAL 12 YEARS AGO LEFT KNEE- 04/22 RT KNEE PAST SURGICAL HISTORY Procedure Laterality Date - ARTHROCENTESIS ASPIRAND/INJ MAJOR JT/BURSA W/O US 02/21/10 INJECT KNEE LEFT performed by YESENIA ARCEO at OR - ARTHROSCOPIC KNEE SURGERY 2008- RT LT KNEE ALSO 12 YEARS AGO - ARTHRS KNE SURG W/MENISCECTOMY MED/LAT W/SHVG 02/21/10 ARTHROSCOPY KNEE WITH MENISCECTOMY MEDIAL OR LATERAL AND MENISCAL SHAVING performed by YESENIA ARCEO at OR - BONE SPURS REMOVED SHOULDER - TONSILLECTOMY HX AGE 18 - VASECTOMY UNI/BI SPX W/POSTOP SEMEN EXAMS 22 YEARS AGO Medications reviewed. ALLERGIES Allergen Reactions - Seasonal Allergies Unknown Social History Tobacco Use - Smoking status: Former Smoker Quit date: 06/14/1979 Years since quittin.4 - Smokeless tobacco: Never Used - Tobacco comment: SMOKED PIPE FOR 10 YEARS Substance Use Topics - Alcohol use: Yes Comment: SOCIAL 3x/week - Drug use: No Comment: denies tx for substance and alcohol abuse in the past EXAMINATION: GENERAL: Appears healthy, well-nourished, no deformities. ORIENTATION: Alert and oriented to person place and time HABITUS: Normal GAIT: Ambulating with and without his cane with a slight antalgic gait on start up though he can correct this when he concentrates and ambulate with a relatively normal gait when he is paying attention. Does still have some stiffness with standing up straight. On physical exam of the right hip today, Appearance: No warmth or redness, wound is healing satisfactorily with no sign of infection. The skin just posterior to the incision that was significantly blistered is now completely healed as well. Calf is soft and nontender. Negative Homans. Tenderness/swelling: Does still have some tightness and tenderness as well as swelling just posterior to the incision and is becoming softer at the more distal end with massage but still tight more superiorly. Range of motion: Tolerates hip range of motion without much irritability other than some tightness at extremes. RADIOGRAPHS: Personally reviewed by myself and with the patient today demonstrating right THR components in satisfactory position with good interfaces noted. No evidence of wear or loosening. No other osseous abnormalities. IMPRESSION: Encounter Diagnosis ICD-10-CM 1. S/P hip replacement, right Z96.641 XR PELVIS 1V AP XR PELVIS 1V AP The wound is healing well. He is becoming more active and is getting some tightness. Still has significant tightness of the anterior hip but he has been dealing with this for very long time and will take time to stretch out. Discussed resuming Voltaren gel topically which she has used in the past. May resume his Voltaren orally in 1 week when he is finished with his aspirin twice a day. Discussed use of heat and ice. Discussed walking for exercise paying attention to his gait. We will continue with massage. Follow-up in 1 week for recheck. Patient was evaluated by Dr. Nova as well today and he agrees with this plan. Lorna Ngo PA-C October 29, 2021 12:59 [facility]05-18-2022 NoteHNO ID: [id number] Author: RT Ming(R) Service: ? Author Type: Technologist Type: Progress Notes Filed: 10/29/2021 12:29 PM Note Text: Radiology Service Progress Note PATIENT NAME: Meera Mckoy DATE OF SERVICE: October 29, 2021 TIME: 12:28 PM PATIENT IDENTITY VERIFICATION COMPLETED USING TWO (2) IDENTIFIERS: Name and Date of confirmed by patient verbally. FALL SCREENING: Has the patient had 2 falls in the last year or 1 fall with injury or currently using an Ambulatory Assistive Device (Walker, Cane, Wheelchair, Crutches, etc.)? No PATIENT GENDER DATA: Male PATIENT RELEVANT IMPLANT DATA REVIEWED: Not Applicable RADIOLOGY DEPARTMENT: General X-ray: Exam(s) Completed: Pelvis X-Ray: Pelvis General AP PERIPHERAL IV DATA: Not applicable SIGNED BY: RT Ming(R) October 29, 2021 12:28 [facility]05-18-2022 History of Present illness Narrative* Lorna Ngo PA-C - 10/29/2021 12:59 PM EDT This document has been created with the use of voice recognition technology. It may contain inaccuracies such as misspellings, inaccurate syntax or word sense that escaped review. Chief complaint: Recheck of right hip Right THR 10/07/2021 (3 weeks) HISTORY: Meera is a 71 year old male. Patient comes in today for follow up of his right hip wound and swelling. He reports the hip itself is a bit more achy and stiff but he has been a lot more active as well. He states pain is well controlled with Tylenol and using the oxycodone only when he needsit at night. Making good progress with physical therapy. Pain level 2/10. Notes that the swelling seems to be going down. No other musculoskeletal complaints PAST MEDICAL HISTORY Diagnosis Date Bone Spurs LT SHOULDER Elevated PSA High cholesterol GOOD WITH MEDS Kidney stone 05/26/2016 Low back pain radiating to right leg Shoulder pain RT Torn meniscus BILATERAL 12 YEARS AGO LEFT KNEE- 04/22 RT KNEE PAST SURGICAL HISTORY Procedure Laterality Date ARTHROCENTESIS ASPIR&/INJ MAJOR JT/BURSA W/O US 02/21/10 INJECT KNEE LEFT performed by YESENIA ARCEO at OR ARTHROSCOPIC KNEE SURGERY 2009- RT LT KNEE ALSO 12 YEARS AGO ARTHRS KNE SURG W/MENISCECTOMY MED/LAT W/SHVG 02/21/10 ARTHROSCOPY KNEE WITH MENISCECTOMY MEDIAL OR LATERAL AND MENISCAL SHAVING performed by PHILIP ARCEO at OR BONE SPURS REMOVED SHOULDER TONSILLECTOMY HX AGE 18 VASECTOMY UNI/BI SPX W/POSTOP SEMEN EXAMS 22 YEARS AGO Medications reviewed. ALLERGIES Allergen Reactions Seasonal Allergies Unknown Social History Tobacco Use Smoking status: Former Smoker Quit date: 06/14/1979 Years since quittin.4 Smokeless tobacco: Never Used Tobacco comment: SMOKED PIPE FOR 10 YEARS Substance Use Topics Alcohol use: Yes Comment: SOCIAL 3x/week Drug use: No Comment: denies tx for substance and alcohol abuse in the past EXAMINATION: GENERAL: Appears healthy, well-nourished, no deformities. ORIENTATION: Alert and oriented to person place and time HABITUS: Normal GAIT: Ambulating with and without his cane with a slight antalgic gait on start up though he can correct this when he concentrates and ambulate with a relatively normal gait when he is paying attention. Does still have some stiffness with standing up straight. On physical exam of the right hip today, Appearance: No warmth or redness, wound is healing satisfactorily with no sign of infection. The skin just posterior to the incision that was significantly blistered is now completely healed as well.Calf is soft and nontender. Negative Homans. Tenderness/swelling: Does still have some tightness and tenderness as well as swelling just posterior to the incision and is becoming softer at the more distal end with massage but still tight more superiorly. Range of motion: Tolerates hip range of motion without much irritability other than some tightness at extremes. RADIOGRAPHS: Personally reviewed by myself and with the patient today demonstrating right THR components in satisfactory position with good interfaces noted. No evidence of wear or loosening. No other osseous abnormalities. IMPRESSION: Encounter Diagnosis ICD-10-CM 1. S/P hip replacement, right Z96.641 XR PELVIS 1V AP XR PELVIS 1V AP The wound is healing well. He is becoming more active and is getting some tightness. Still has significant tightness of the anterior hip but he has been dealing with this for very long time and will take time to stretch out. Discussed resuming Voltaren gel topically which she has used in the past. May resume his Voltaren orally in 1 week when he is finished with his aspirin twice a day. Discusseduse of heat and ice. Discussed walking for exercise paying attention to his gait. We will continue with massage. Follow-up in 1 week for recheck. Patient was evaluated by Dr. Nova as well today and he agrees with this plan. Lorna Ngo PA-C October 29, 2021 12:59 PM documented in this encounterC[facility]05-18-2022 Instructions* Patient Instructions* Lorna Ngo PA-C - 10/29/2021 12:59 PM EDT Continue Physical Therapy Walk twice a day for exercise paying attention to your gait. Heel to toe and longer strides. You may wash the incision and treat like normal skin. Tissue massage to the skin around the incision to loosen it up, 2 minutes multiple times a day. You may use lotion on the incision/glue several times a day to soften the glue. Do not pick at the scabs. Let them fall off on their own. You may use heat on a low setting to relax tissues. Use Ice after activity/exercise. Heat loosen things up, Ice quiets things down. Use Voltaren gel on hip 3-4 times a day. May resume Voltaren orally in 1 week when finished with Aspirin twice a day. documented in this encounterCleveland Clinic [facility]04-27-2022 NoteHNO ID: [id number] Author: Alayna Kaiser ([facility]) Service: ? Author Type: ? Type: Plan of Care Filed: 10/08/2021 4:31 PM Note Text: The following medications were delivered to the patient: Medication List START taking these medications docusate sodium 100 mg capsule Commonly known as: COLACE Take 1 capsule by mouth twice daily. X oxyCODONE IR 5 mg immediate release tablet Commonly known as: ROXICODONE Take 1-2 tablets by mouth every 6 hours as needed for pain. CHANGE how you take these medications aspirin, enteric coated 81 mg EC tablet Commonly known as: ASPIRIN, ENTERIC COATED Take 1 tablet by mouth twice daily. What changed: when to take this CONTINUE taking these medications allopurinol 100 mg tablet Commonly known as: ZYLOPRIM amLODIPine 5 mg tablet Commonly known as: NORVASC Take 1 tablet by mouth once daily. atorvastatin 40 mg tablet Commonly known as: LIPITOR diphenhydrAMINE 25 mg capsule Commonly known as: BENADRYL hydroCHLOROthiazide 25 mg tablet Commonly known as: HYDRODIURIL, ESIDRIX latanoprost 0.005 % ophthalmic solution Commonly known as: XALATAN losartan 100 mg tablet Commonly known as: COZAAR OZEMPIC 1 mg/dose (4 mg/3 mL) pen injector Generic drug: semaglutide sildenafil 100 mg tablet Commonly known as: VIAGRA Take 0.5 tablets by mouth as needed. 30-60 minutes before sexual intercourse spironolactone 25 mg tablet Commonly known as: ALDACTONE timolol maleate 0.5 % ophthalmic solution Commonly known as: TIMOPTIC Use 1 Drop in both eyes once daily. zolpidem 10 mg Commonly known as: AMBIEN You might also be taking other medications not listed above. If you have questions about any of your other medications, talk to the person who prescribed them or your Primary Care Provider. Alayna Kaiser ([employer]) PAGER: keith October 08, 2021 4:31 [id number] NoteHNO ID: [id number] Author: Mary Kulkarni RN Service: Care Management Author Type: Registered Nurse Type: Care Mgt Initial Assessment Filed: 10/08/2021 9:53 AM Note Text: CARE MANAGEMENT: ASSESSMENT AND DISCHARGE PLAN SERVICE DATE: October 08, 2021 SERVICE TIME: 9:52 AM PRIMARY CARE PHYSICIAN: Mona Reese DO, ADMISSION STATUS: Extended Recovery MEDICAL: MEDICARE A AND B Patient/Foundation Coordinator Stated Goals: To return home to life as it was Health Insurance: Medicare Health Issues Impacting Discharge Plan: Newly diagnosed Newly Diagnosed: hip replacement Advance Directive: Current Advance Directive: Health Care Power of Study Hall Supervisor;Living Will In Chart: Yes Up To Date and Valid: Yes Baseline Mental Status Prior to this Illness what was the patient's Baseline Mental Status?: Alert AND Oriented Prior to this illness, has anyone described the patient having any of the following behaviors?: Not Applicable Relationship of the informant to the patient:: Self Functional Status: Independent Does Patient Currently Receive Any Community Services or Home Care?: None Equipment Prior to Admission: Walker Has the Patient Been in a Care Home Facility in the Past 30 days?: No SOCIAL: Living Arrangements: Home Lives With: Spouse Financial Resources: Retired Primary Contact: Extended Emergency Contact Information Primary Emergency Contact: Raisa Mckoy Address: [address] [place] [id number] [address] Relation: Spouse Supportive Patient Contact:: Yes Contact Resources: Family Caregiver AssessmentCaregiver is ready, willing and able to meet the patient's needs as recommended by the inter-professional team:: No Caregiver needed Does the patient have an acute stroke diagnosis, or has the patient had a stroke during this admission?: No Patient's transition needs and plan for meeting these needs: Outpatient physical therapy Patient's perception of need for this admission: hip replacement Are you interested in bedside delivery of your medications? Yes Is Patient Psychosocially Complex?: No ASSESSMENT AND PLAN: Medical Needs: Medical Needs: None Psychosocial Needs: Psychosocial Needs: None FREEDOM OF CHOICE EXPLAINED: [place] of Choice Given: No Reason Not Given: No placements necessary POTENTIAL TRANSITION PLANS Outpatient Therapy Patient from home with spouse. Has an outpatient [facility] app[facility] at 9:[facility]. Spouse will transport home. SIGNATURE: Mary Kulkarni RN PATIENT NAME: Meera Mckoy DATE: October 08, 2021 TIME: 9:52 AM PAGER/CONTACT #: [phone] [id number] NoteHNO ID: [id number] Author: Arnulfo Bianchi MD Service: Anesthesiology Author Type: Physician Type: Anesthesia Procedure Notes Filed: 10/07/2021 9:31 AM Note Text: ANESTHESIOLOGY PROCEDURE NOTE Spinal Block General Information Procedure Start Time/Medication Administration: 10/07/2021 9:28 AM Procedure End time: 10/07/2021 9:28 AM Patient location during procedure: OR Timeout Performed Pre-procedure: timeout performed Consent Obtained: Yes Patient identity confirmed: arm band and patient Reason for Block: primary surgical anesthetic Staffing Anesthesiologist: Arnulfo Bianchi MD CONSTRUCTION CARPENTER: Mary Andres APRN.CONSTRUCTION CARPENTER Performed by: anesthesiologist Preparation Sterility Preparation: hand hygiene performed prior to procedure, surgical cap used, mask used, sterile drape used during line insertion, skin prep agent completely dried prior to procedure Site Prep: Duraprep Procedure Details Patient Position: sitting Monitoring: Pulse Ox and NIBP Approach: Right paramedian Location: L3-4 Injection Technique: single-shot Needle Needle Type: pencil-tip Needle Gauge: 25 G Needle Length: 3.5 in Assessment Events: tolerated well Medications Administered Bupivacaine-dextrose 0.75 % (7.5 mg/mL) injection (SENSORCAINE MPF SPINAL), 1.8 mL SIGNATURE: Arnulfo Bianchi MD PATIENT NAME: Meera Mckoy DATE: October 07, 2021 TIME: 9:30 AM CSN: [id number] NoteHNO ID: [id number] Author: Lorna Ngo PA-C Service: ? Author Type: Physician Anatomical Embalmer Type: Progress Notes Filed: 09/10/2021 12:03 PM Note Text: CONSULT ORTHOPAEDIC: HIP PRIMARY CARE PHYSICIAN: Mona Reese DO, DO REFERRING PROVIDER: Gordo Nova II [id number] [facility] [id number] ASSESSMENT AND PLAN: Impression: Right Hip Severe Degenerative Osteoarthritis, Primary Meera Mckoy has radiograph and physical exam evidence of degenerative joint disease and wishes to pursue surgery. This patient appears to have sufficient symptoms to warrant surgical intervention and is an appropriate candidate for right Primary Total Hip Arthroplasty as evidenced by six months of unsuccessful non-operative treatment as outlined in the HPI below and progressive symptoms. Progressive symptoms include: Pain impacting sleep or causing fatigue Pain impacting work Pain worsened by weight bearing Pain effecting living situation Pain limiting ability to stay fit and healthy Unable to ambulate 2 blocks without significant pain and dysfunction. We had a lengthy discussion regarding the risk and benefit of surgery, the alternatives, limitations and personnel involved. These included but were not limited to infection, persistent pain, instability, nerve injury, blood clots, and medical complications. We also discussed the pre-operative course, surgery itself and rehabilitation. Kelsey-operative blood management and transfusion issues were discussed, and options clearly outlined. The patient has consented to the use of the banked allogenic blood if medically necessary. The patient has elected to schedule surgery at this time or intends to call the office with a surgical date. Shared decision making occurred while obtaining informed consent. The patient will be scheduled for a pre-operative education class at which time they will have their nasal swab completed and will be given CHG cloths along with the verbal and written instructions for their use. Patient has been instructed and has been scheduled or will call to schedule attendence in one of the total joint perioperative classes offered prior to proceeding with LANDY.. The patient has been ordered: No orders placed today. CONSULTS: Patient does not require consults for optimization at this time. ACTIVE PROBLEM LIST Torn Meniscus Low Back Pain Radiating to Right Leg High Cholesterol Ac (Acromioclavicular) Joint Bone Spurs Shoulder Pain Elevated Psa Sensory Peripheral Neuropathy Osteoarthrosis, Unspecified Whether Generalized Or Localized, Lower Leg Malignant Neoplasm of Prostate (Hcc) Urge Incontinence Urge Incontinence of Urine Bph (Benign Prostatic Hyperplasia) History of Prostate Cancer Kidney Stone SUBJECTIVE CHIEF COMPLAINT: Hip Pain HPI: Meera Mckoy is a 71 year old patient here for evaluation and management of Right hip pain.Meera Mckoy has had progressive problems with the hip(s) constantly over the past 1 year(s) interfering with activities which include walking 2 blocks, gardening, 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 The problem began limiting activities 1-3 years ago. Currently the pain in the joint is rated at 1 out of 10 with minimal activity. The pain is intermittent and is located in the right hip, groin, outer aspect of the hip, thigh and back pain . The pain is described as aching, soreness and stiffness. Relieving factors include ambulatory device. There is no specific incident that brought about this pain. Meera Mckoy has no additional complaints. FUNCTIONAL STATUS: Walk indoors, such as around the house (1.75 METs) Do light work around the house, such as dusting or washing dishes (2.70 METs) Take care of self, that is eating, dressing, bathing, using the toilet (2.75 METs) Walk a block or two on level ground (2.75 METs) Do moderate work around the house such as vacuuming, sweeping floors, or carrying in groceries (3.50 METs) Do yardwork, such as raking leaves, weeding,or pushing a power mower (4.50 METs) Have sexual relations (5.25 METs) Climb a flight of stairs or walk up a hill (5.50 METs) Participate in moderate recreational activities, such as golf, bowling, dancing, doubles tennis, or throwing a baseball or football (6.00 METs) Participate in strenuous sport, such as swimming, singles tennis, football, basketball, or skiing (7.50 METs) Do heavy work around the house, such as scrubbing floors, lifting or moving heavy furniture (8.00 METs) Run a short distance (8.00 METs) Partially dependent Limited most or all of the time (uses scooter, mobility device) Totally dependent Total Joint Arthroplasty: Risk Calculator Meera elizabeth (more content not included)...[facility] 09-10-2021 Instructions* Patient Instructions* Maira Doss APRN.C2 TACTICAL ANALYSIS TECHNICIAN - 09/10/2021 11:01 AM EDT PATIENT PREOPERATIVE INSTRUCTIONS Gordo Nova MD has scheduled you for your procedure at this surgery center: [facility]: [phone] --[id number] [place] [address]. Please enter through the entrance closest to [facility]. Please read below carefully for your personalized instructions. Arrival Time for Surgery: - The Surgery Center or hospital where you are having surgery will call the afternoon before surgery (or Wednesday for Wednesday surgery) with a scheduled arrival time. - If you have not heard by 4 pm, please contact the surgery center above. Please be aware that emergency situations arise, which may delay or change your surgical time. If this happens, we will notify you as soon as possible and regret any inconvenience. Dietary Restrictions: - No solid food after midnight. - You may have 12 ounces of clear liquids (water, clear juices such as apple juice or gatorade, carbonated beverages, clear tea, black coffee, jello) until 2 hours before scheduled arrival at facility. Medications: Unless instructed differently below, stay on all of your medications until your surgery. Approved medications to take the morning of surgery with a sip of water: Amlodipine Bring CPAP machine to the hospital - No diabetic medication the morning of surgery. If you take any medications for erectile dysfunction-Cialis (Tadalafil), Levitra, Staxyn (Vardenafil) Viagra (Sildenenafil please do not take these for 48 hours before surgery. If you start any new medications after today's visit, please contact the surgeon's office. Blood Thinning Medications: - Stop NSAIDS (Ibuprofen, Advil, Aleve, Motrin, Celebrex, Mobic, etc.) 7 days before surgery, as directed by your surgeon. - Stop Aspirin 7 days before surgery, as directed by your surgeon. - Stop Vitamin E, ALL multi-vitamins, herbals and dietary supplements 7 days before surgery. - You may take Tylenol (Acetaminophen) or any of your pain medications that do not contain aspirin or NSAIDS as needed. Important Reminders: - Candy, mints, and tobacco products are NOT permitted the morning of surgery. - Hearing aids, dentures and glasses may be worn the morning of surgery. - NO jewelry, body piercings, makeup, hairpins or contacts are to be worn the day of surgery. If you develop symptoms such as a fever, cold, or flu, or have other changes to your health within TWO DAYS of scheduled surgery or the morning of surgery, please contact the surgery center above. Personal Belongings: -Please have photo ID and insurance cards. -If you do not have a copy of advance directives on file with us, please bring a copy with you on the day of surgery. - Leave ALL valuables and money at home or with family members. For Outpatient Procedures: - YOU MUST HAVE A RESPONSIBLE WINDOWS DESKTOP SUPPORT TAKE YOU HOME. A PHYSICIAN INDUSTRIAL OR BOX OFFICE AGENT CANNOT BE MADE A RESPONSIBLE WINDOWS DESKTOP SUPPORT. - We recommend that a responsible person stays with you overnight to take care of you. - You cannot stay in a hotel alone after outpatient surgery. You will not be permitted to have yoursurgery, if you do not have someone to take care of you. If you already have an Advance Directive, please fax a copy to [phone] or email to for it to be added to your chart. If you do not have an Advance Directive, you can find the appropriate form and more information at [email or web address]. We recommend that youcomplete the Advance Directive form found on the website and bring it with you the day of your surgery. It can be witnessed and scanned into your chart that day. Maira Doss APRN.CNP documented [facility] History and physical note * Maira Doss APRN.CNP - 09/10/2021 11:00 AM EDT HISTORY AND PHYSICAL EXAMINATION SERVICE DATE: 09/10/2021 SERVICE TIME: 11:00 AM PRIMARY CARE PHYSICIAN: Mona Reese DO, DO REASON FOR VISIT: Meera Mckoy is a 71 year old male who is scheduled for ARTHROPLASTY REPLACE JOINT TOTAL HIP - Right at the request of Dr. Gordo Nova for consultation. My final recommendation will be communicated back to the requesting physician by way of shared medical record or letter. The patient has the following: ACTIVE PROBLEM LIST Torn Meniscus Low Back Pain Radiating to Right Leg High Cholesterol Ac (Acromioclavicular) Joint Bone Spurs Shoulder Pain Elevated Psa Sensory Peripheral Neuropathy Osteoarthrosis, Unspecified Whether Generalized Or Localized, Lower Leg Malignant Neoplasm of Prostate (Hcc) Urge Incontinence Urge Incontinence of Urine Bph (Benign Prostatic Hyperplasia) History of Prostate Cancer Kidney Stone Pre-Op Evaluation Primary Osteoarthritis of Right Hip Primary Hypertension Subjective CHIEF COMPLAINT: Right hip pain HPI: 71 year old male with right hip pain for > 6 months. Pain is impacting sleep, work, activity level, and impairing daily life. Conservative measures have been ineffective. Patient has opted toproceed with above reccommended surgery and is here today for preanesthesia consultation. PAST MEDICAL HISTORY Diagnosis Date Bone Spurs LT SHOULDER Elevated PSA High cholesterol GOOD WITH MEDS Kidney stone 05/26/2016 Low back pain radiating to right leg Shoulder pain RT Torn meniscus BILATERAL 12 YEARS AGO LEFT KNEE- 11/09 RT KNEE PAST SURGICAL HISTORY Procedure Laterality Date ARTHROCENTESIS ASPIR&/INJ MAJOR JT/BURSA W/O US 02/21/10 INJECT KNEE LEFT performed by YESENIA ARCEO at OR ARTHROSCOPIC KNEE SURGERY 2009- RT LT KNEE ALSO 12 YEARS AGO ARTHRS KNE SURG W/MENISCECTOMY MED/LAT W/SHVG 02/21/10 ARTHROSCOPY KNEE WITH MENISCECTOMY MEDIAL OR LATERAL AND MENISCAL SHAVING performed by PHILIP ARCEO at OR BONE SPURS REMOVED SHOULDER TONSILLECTOMY HX AGE 18 VASECTOMY UNI/BI SPX W/POSTOP SEMEN EXAMS 22 YEARS AGO FAMILY HISTORY Problem Relation Age of Onset Cancer Mother CERVICLE Stroke Mother Heart Father AORTIC VALVE Stroke Father Anesthesia Problems No Family History SOCIAL HISTORY: Social History Tobacco Use Smoking status: Former Smoker Quit date: 06/14/1979 Years since quittin.2 Smokeless tobacco: Never Used Tobacco comment: SMOKED PIPE FOR 10 YEARS Substance Use Topics Alcohol use: Yes Comment: SOCIAL 3x/week Drug use: No Comment: denies tx for substance and alcohol abuse in the past MEDICATIONS: Prior to Admission medications as of 09/10/21 1202 Medication Sig Last Dose Taking allopurinol (ZYLOPRIM) 100 mg tablet Take 100 mg by mouth once daily. Taking Yes atorvastatin (LIPITOR) 40 mg tablet Take 40 mg by mouth once daily. Taking Yes diphenhydrAMINE (BENADRYL) 25 mg capsule Take 25 mg by mouth as needed. Taking Yes hydroCHLOROthiazide (HYDRODIURIL, ESIDRIX) 25 mg tablet Take 25 mg by mouth once daily. Taking Yes latanoprost (XALATAN) 0.005 % ophthalmic solution Use 1 Drop in both eyes every evening. Taking Yes losartan (COZAAR) 100 mg tablet Take 100 mg by mouth once daily. Taking Yes OZEMPIC 1 mg/dose (4 mg/3 mL) pen injector Inject 1 mg subcutaneously one time a week. Taking Yes spironolactone (ALDACTONE) 25 mg tablet Take 25 mg by mouth once daily. Taking Yes amLODIPine (NORVASC) 5 mg tablet Take 1 tablet by mouth once daily. Taking Yes timolol maleate (TIMOPTIC) 0.5 % ophthalmic solution Use 1 Drop in both eyes once daily. Taking Yes zolpidem 10 mg tab Take by mouth at bedtime as needed. Taking Yes aspirin, enteric coated 81 mg EC tablet Take 81 mg by mouth once daily. Taking Yes sildenafil (VIAGRA) 100 mg tablet Take 0.5 tablets by mouth as needed. 30-60 minutes before sexual intercourse Taking Yes mupirocin (BACTROBAN) 2 % ointment twice daily for 5 days. Apply 0.5 inch with cotton swab (Q-tip) to each nostril in the morning and evening for 5 days prior to and including day of surgery. No medication comments found. CURRENT ALLERGIES: ALLERGIES Allergen Reactions Seasonal Allergies Unknown COVID VACCINATION STATUS: Fully vaccinated REVIEW OF SYSTEMS: PAIN ASSESSMENT: General: No weight loss, malaise or fevers. Neuro: No history of TIA's, stroke, CEMETERY KEEPER tumor, impaired sensorium, hemiplegia, paraplegia or quadraplegia. No neurological symptoms or problems. Respiratory: No history of current cough or dyspnea, or pneumonia in the past 6 weeks. No history of respiratory/pulmonary symptoms or problems. + KATTY wears CPAP Cardiovascular: Negative for Recent PA, Arrhythmia, Chest Pain, DVT/PE + HTN on RX meds + HDL on RX meds GI: No history of GI symptoms or problems. No history of esophageal varices, recent ascites, or ETOH greater than 2 drinks per day. : No history of dysuria, frequency or incontinence,, stones or chronic kidney disease + BPH Endocrine: No history of diabetes. Has not taken steroids within the past 30 days. No history of endocrinological symptoms or problems. Hematology: Chronic anti-coagulation / platelet meds (Aspirin) Oncology: + H/O prostate CA Psych: No history of psychiatric symptoms or problems. Musculoskeletal: Negative for joint pain or swelling, back pain or muscle pain. Skin: Negative for lesions, rash and itching. Objective PHYSICAL EXAM: VITALS: BP 103/62 Pulse 66 Temp (Src) 97 (Temporal) Resp 16 Ht 5' 11 (1.80m) Wt 249 lb (112.9kg) SpO2 100% BMI 34.74 kg/(m^2). General: Alert and oriented, No acute distress Skin: Normal color, no rash, no lesions. HEENT: EOM, pupils equal, round and reactive. Cardiovascular: Normal S1 & S2, no rubs, murmurs or gallops. No JVD. Pulse regular. Lungs: Normal breath sounds, no wheezes or crackles. Abdomen: Soft, non-tender, no rigidity. Extremities: No deformity, no edema or tenderness, no joint swelling or clubbing. Neurological: Normal cognition and motor skills. Pulses: Carotid and radial pulses normal +2. Diagnostic tests reviewed for today's visit: Lab Value Units Date High Low HB No results within date range. HCT No results within date range. WBC No results within date range. PLT No results within date range. NA No results within date range. K No results within date range. GLUC No results within date range. BUN No results within date range. CREAT No results within date range. PTSEC No results within date range. INR No results within date range. APTT No results within date range. ALT No results within date range. AST No results within date range. TBILI No results within date range. TSH No results within date range. Lab Value Units Date High Low HCGQT No results within date range. UHCG No results within date range. HCG, BODY* No results within date range. Lab Value Units Date High Low ABORHD No results within date range. ABSCREEN No results within date range. No results found for: HBA1C Assessment/Plan Primary hypertension Assessment: Stable, controlled with RX meds METS: Walk indoors, such as around the house (1.75 METs) Do light work around the house, such as dusting or washing dishes (2.70 METs) Take care of self; that is eating, dressing, bathing, using the toilet (2.75 METs) Patient denies any chest pain or undue shortness of breath with the above physical activity. ASA Class: 3 ANESTHESIA FINDINGS: Intubation History: No history of difficult intubation Significant Anesthesia Considerations: None Airway Exam: General: Normal appearance Mallampati Score is CLASS II ULBT: Class II - Lower incisors can bite the upper lip below the tavo line Neck: Normal appearance and function, Distance from hyoid to mentum during neck extension is at least 3 finger breaths Mouth: Normal tongue size and Mouth opening less than 2 finger breaths Dentition: Intact and Caps/crowns Airway History: No history of difficult intubation Sleep Apnea Probability Snores loudly: Yes Tired, fatigued or sleepy in daytime: No Stops breathing or choking/gasping during sleep: Yes High blood pressure: Yes Sleep Apnea Probability Score 09/03/2021 Sleep Apnea Screen V2 77.12 (Recommend sleep study) PLAN Pt optimally prepared for surgery, pending LABS and EKG CONSULTS: Patient does not require consults for optimization at this time. The Following Tests/Procedures Have Been Initiated: Orders Placed This Encounter mupirocin (BACTROBAN) 2 % ointment Sig: twice daily for 5 days. Apply 0.5 inch with cotton swab (Q-tip) to each nostril in the morningand evening for 5 days prior to and including day of surgery. Dispense: 22 g Refill: 0 ECG COMPLETE Standing Status: Future Standing Expiration Date: 09/10/2022 Planned Anesthetic: Per anesthesia choice Instructions Given to Patient: Instructions located in the after visit summary. Patient given verbal and written preop instructions and voices comprehension and compliance. SIGNATURE: Maira Doss APRN.CNP PATIENT NAME: Meera Mckoy DATE: September 10, 2021 TIME: 11:00 AM documented in this encounterC[facility] Instructions* Patient Instructions* Lorna Ngo PA-C - 09/10/2021 10:49 AM EDT To avoid postop constipation, which is the biggest problem after surgery: Increase the amount of water that you are drinking by 3 to 4 glasses a day beginning 2 to 3 days before surgery. Eat light, avoiding constipating foods for 2 to 3 days before surgery. Avoid cheese which is constipating (pizza, grilled cheese) as well as a heavy protein like steak or hamburger. Eat lots of fruits and vegetables, soup, salads, eggs, yogurt, fish, rice and small amount of chicken. Plan on doing the same thing after surgery until you get your bowels going. Could be 2 or 3 days postop. Eating 2 or 3 prunes with every meal also helps get your bowels for more naturally. This will sometimes avoid having to use medications to blast you out after surgery. documented in this encounterC[facility]03-[facility]22 History of Present illness Narrative* Lorna Ngo PA-C - 09/10/2021 9:33 AM EDT CONSULT ORTHOPAEDIC: HIP PRIMARY CARE PHYSICIAN: Mona Reese DO, DO REFERRING PROVIDER: Gordo Nova [id number] [facility] [id number] ASSESSMENT & PLAN: Impression: Right Hip Severe Degenerative Osteoarthritis, Primary Meera Mckoy has radiograph and physical exam evidence of degenerative joint disease and wishes to pursue surgery. This patient appears to have sufficient symptoms to warrant surgical intervention and is an appropriate candidate for right Primary Total Hip Arthroplasty as evidenced by six months ofunsuccessful non-operative treatment as outlined in the HPI below and progressive symptoms. Progressive symptoms include: Pain impacting sleep or causing fatigue Pain impacting work Pain worsened by weight bearing Pain effecting living situation Pain limiting ability to stay fit and healthy Unable to ambulate 2 blocks without significant pain and dysfunction. We had a lengthy discussion regarding the risk and benefit of surgery, the alternatives, limitations and personnel involved. These included but were not limited to infection, persistent pain, instability, nerve injury, blood clots, and medical complications. We also discussed the pre-operative course, surgery itself and rehabilitation. Kelsey-operative blood management and transfusion issues were discussed, and options clearly outlined. The patient has consented to the use of the banked allogenic blood if medically necessary. The patient has elected to schedule surgery at this time or intends to call the office with a surgical date. Shared decision making occurred while obtaining informed consent. The patient will be scheduled for a pre-operative education class at which time they will have their nasal swab completed and will be given CHG cloths along with the verbal and written instructions for their use. Patient has been instructed and has been scheduled or will call to schedule attendence in one of the total joint perioperative classes offered prior to proceeding with LANDY.. The patient has been ordered: No orders placed today. CONSULTS: Patient does not require consults for optimization at this time. ACTIVE PROBLEM LIST Torn Meniscus Low Back Pain Radiating to Right Leg High Cholesterol Ac (Acromioclavicular) Joint Bone Spurs Shoulder Pain Elevated Psa Sensory Peripheral Neuropathy Osteoarthrosis, Unspecified Whether Generalized Or Localized, Lower Leg Malignant Neoplasm of Prostate (Hcc) Urge Incontinence Urge Incontinence of Urine Bph (Benign Prostatic Hyperplasia) History of Prostate Cancer Kidney Stone SUBJECTIVE CHIEF COMPLAINT: Hip Pain HPI: Meera Mckoy is a 71 year old patient here for evaluation and management of Right hip pain.Meera Mckoy has had progressive problems with the hip(s) constantly over the past 1 year(s) interfering with activities which include walking 2 blocks, 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 The problem began limiting activities 1-3 years ago. Currently the pain in the joint is rated at 1 out of 10 with minimal activity. The pain is intermittent and is located in the right hip, groin, outer aspect of the hip, thigh and back pain . The painis described as aching, soreness and stiffness. Relieving factors include ambulatory device. There is no specific incident that brought about this pain. Meera Mckoy has no additional complaints. FUNCTIONAL STATUS: Walk indoors, such as around the house (1.75 METs) Do light work around the house, such as dusting or washing dishes (2.70 METs) Take care of self, that is eating, dressing, bathing, using the toilet (2.75 METs) Walk a block or two on level ground (2.75 METs) Do moderate work around the house such as vacuuming, sweeping floors, or carrying in groceries (3.50 METs) Do yardwork, such as raking leaves, weeding,or pushing a power mower (4.50 METs) Have sexual relations (5.25 METs) Climb a flight of stairs or walk up a hill (5.50 METs) Participate in moderate recreational activities, such as golf, bowling, dancing, doubles tennis, orthrowing a baseball or football (6.00 METs) Participate in strenuous sport, such as swimming, singles tennis, football, basketball, or skiing (7.50 METs) Do heavy work around the house, such as scrubbing floors, lifting or moving heavy furniture (8.00 METs) Run a short distance (8.00 METs) Partially dependent Limited most or all of the time (uses scooter, mobility device) Totally dependent Total Joint Arthroplasty: Risk Calculator Meera Mckoy has a 6.06% chance of NOT returning home at discharge for a Primary total Hip replacement. Meera's estimated Length of Stay is 1 day. Meera's 30 day chance of readmission is 2.66%. Readmission Probability 2.66 % (within 30 days following surgery) Estimated LOS 1 day Discharge Disposition Probability D/C to Home 93.94 % D/C to SNF 6.06 % These calculations are based on the following factors: - 71 years of age - sex is male - BMI of 34.03 kg/m2 - NarxCare score of 160 - 0 hospitalizations in the last 12 months - no history of heart disease - no history of diabetes - no history of COPD - no history of anemia - preoperative ambulation: independent community distances - 6 step(s) to enter home - bed location is NOT on the first floor - bath location is on the first floor - caregiver is consistent - home is not more than 150 miles away - PROMIS-10 Mental Health T score not available - Marital status: PREVIOUS TREATMENTS: Attempted Weight Loss Physical Therapy: Activities Modified Previous Surgery: hip injection by Dr. Elliott REVIEW OF SYSTEMS: GENERAL: Denies fever, chills malaise and weight loss.. PAIN ASSESSMENT: See HPI. MUSCULOSKELETAL: See HPI. Risk Factors for Total Joint Arthroplasty (TJA) Obesity Moderate Risk High: BMI > 40 Moderate: BMI 30-40 Normal: BMI < 30 Diabetes normal High: A1C > 8 Moderate: A1C 7-8 Normal: A1C < 7 Smoking normal High: Current smoker Normal: Non smoker Anemia normal High: Hgb < 13 (men) N/A: Hgb >= 13 (men) Nutritional Status normal High: Alb<3.4, or prealb<15, or serum transferrin<200, or total lymphocyte count<1500 Normal: normal labs COPD normal High: dx of COPD Normal: no dx of COPD MRSA normal High: dx of MRSA or positive lab test Normal: no MRSA CKD normal High: eGFR<60 Moderate: eGFR 60-89 Normal: eGFR>90 Hx of DVT / PE normal High: dx of DVT / PE Normal: no dx of DVT / PE Narcotics Use Moderate Risk High:NarxCare >=300 Moderate: 100-299 Normal: 0-99 KATTY normal High: dx of KATTY N/A: no dx of KATTY Coagulation normal High:PT Sec>13, or PT INR>1.3, or APTT>32.4, or Plt ct<150k Moderate: on anticoag but none of the above Normal: none Obesity: weight management recommended BMI Readings from Last 3 Encounters: 06/19/21 : 35.84 kg/m 06/25/16 : 38.02 kg/m 05/26/16 : 37.80 kg/m NarxCare score NARX Narcotics: 160 (09/10/2021 9:17 AM) Other Risk Factors None PAST MEDICAL HISTORY Diagnosis Date Bone Spurs LT SHOULDER Elevated PSA High cholesterol GOOD WITH MEDS Kidney stone 05/26/2016 Low back pain radiating to right leg Shoulder pain RT Torn meniscus BILATERAL 12 YEARS AGO LEFT KNEE- 04/22 RT KNEE PAST SURGICAL HISTORY Procedure Laterality Date ARTHROSCOPIC KNEE SURGERY 2009- RT LT KNEE ALSO 12 YEARS AGO BONE SPURS REMOVED SHOULDER DRAIN/INJECT LARGE JOINT/BURSA 02/21/10 INJECT KNEE LEFT performed by YESENIA ARCEO at OR KNEE SCOPE,MENISECTOMY,MED OR LAT 02/21/10 ARTHROSCOPY KNEE WITH MENISCECTOMY MEDIAL OR LATERAL AND MENISCAL SHAVING performed by PHILIP ARCEO at OR TONSILLECTOMY HX AGE 18 VASECTOMY 22 YEARS AGO FAMILY HISTORY Problem Relation Age of Onset Heart Father AORTIC VALVE Stroke Father Cancer Mother CERVICLE Stroke Mother Social History Tobacco Use Smoking status: Former Smoker Quit date: 06/14/1979 Years since quittin.2 Smokeless tobacco: Not on file Tobacco comment: SMOKED PIPE FOR 10 YEARS Substance Use Topics Alcohol use: Yes Comment: SOCIAL Drug use: No ALLERGIES: Seasonal Allergies MEDICATIONS: terbinafine HCl (LAMISIL) 250 mg tablet Take 1 tablet by mouth once daily. ketoconazole (NIZORAL) 2 % cream Apply 1 application to affected area once daily. isosorbide dinitrate 30 mg tablet Take 30 mg by mouth once daily. amLODIPine-benazepril (LOTREL) 5-10 mg per capsule Take 1 capsule by mouth once daily. zolpidem 10 mg tab Take by mouth at bedtime as needed. aspirin, enteric coated 81 mg EC tablet Take 81 mg by mouth once daily. sildenafil (VIAGRA) 100 mg tablet Take 0.5 tablets by mouth as needed. 30-60 minutes before sexual intercourse valsartan(DIOVAN 160 MG TAB) Take one(1) tablet daily. rosuvastatin calcium(CRESTOR 10 MG TAB) 2 x a week PHYSICAL EXAM There were no vitals taken for this visit. All other systems deferred. GENERAL: Appears healthy, well-nourished, no deformities. HABITUS: Normal GAIT: Antalgic to the right HIP EXAM: Right: ROM: Extension: slight flexion contracture Flexion: 70 degrees Internal Rotation: 0 degrees External Rotation: 30 degrees Abduction: 20 degrees Adduction: 5 degrees Strength: Pain with resisted abduction and Pain with resisted hip flexion Palpation: No tenderness Log roll: painful. Straight leg raise: Negative Neurovascular Status: Sensation Intact, Moves foot and ankle up & down, 2+ posterial tibial andnegative homans sign DATA: Diagnostic tests reviewed for today's visit: Right hip X-Ray: Severe degenerative changes The following conditions were addressed during the office visit today: none SIGNATURE: Lorna Ngo PA-C PATIENT NAME: Meera Mckoy DATE: September 10, 2021 TIME: 9:34 AM [facility] NoteHNO ID: [id number] Author: Gavin Elliott, DO Service: ? Author Type: Physician Type: Progress Notes Filed: 06/23/2021 11:46 AM Note Text: Meera Mckoy is here today at request of Dr. Gordo Nova specifically for consultation of my opinion in regards to the chief complaint listed below. Correspondence will be shared today via the [employer] electronic health record or through regular mail, where applicable. CHIEF COMPLAINT: Meera Mckoy is a 71 year old male who presents today for new evaluation of right hip. CONSULTATION NOTE Correspondence will be shared today via the [employer] electronic health record or through regular mail, where applicable. HISTORY OF PRESENT ILLNESS: PAIN EVALUATION 06/23/2021 1132 Pain Level: 5 Pain Location: Hip-Right Description: Aching;Sore;Dull Duration Amount of Time: 7 Duration Units: Months Frequency: Intermittent Intervention/Comfort measure: Reposition;Relaxation I personally reviewed previous notes by the referring physician regarding this complaint. SOCIAL HISTORY: Tobacco Use: Quit 06/14/1979. (SMOKED PIPE FOR 10 YEARS) PHYSICAL EXAMINATION: Pain with right hip motion CLINICAL IMPRESSION / ASSESSMENT: (M16.11) Primary osteoarthritis of right hip (primary encounter diagnosis) RECOMMENDATION / PLAN: Injection performed as detailed below in PROCEDURE NOTE Follow up: Per consulting physician. Large Joint Arthro/Inj: R hip joint Informed Consent Consent Obtained: Verbal [place] Protocol A moment to CARE was completed. SIGN IN Personnel directly involved with the procedure wore the appropriate PPE. Special Equipment: N/A Patient/Surrogate Stated/Verified: Patient name, Date of , Relevant allergies and Intended procedure TIME OUT Intended patient and procedure match the source document(s). Consent documented and matches the intended procedure. No relevant labs, photos, and/or imaging studies were applicable for review. Correct side/site marked and visible. Medications required for procedure verified. No fire risk assessment and interventions applicable. No implant(s) inserted. 06/23/2021 11:46 AM The procedure site was prepped in the usual sterile fashion. Site: R hip joint Details:Musculoskeletal ultrasound was utilized to successfully localize placement of the injection needle at the appropriate site. Ultrasound images demonstrating local vasculature and demonstrating injection of solution were saved. Medications: 40 mg triamcinolone acetonide 40 mg/mL Anesthetics: 4 mL lidocaine (PF) 10 mg/mL (1 %) Outcome: Tolerated well, no immediate complications Post-injection instructions were reviewed with the patient and the patient voiced understanding of these instructions. SIGN OUT No specimen collected. No instruments, equipment or retained foreign bodies applicable. Post-procedure follow-up management communicated and Plan of Care Visit completed when applicable Gavin Elliott, [facility]01-06-2022 NoteHNO ID: [id number] Author: Gordo Nova MD Service: Orthopaedic Surgery Author Type: Physician Type: Progress Notes Filed: 06/23/2021 12:59 PM Note Text: [facility] [address] [place], [place] [address] CLINIC NOTE Department of Orthopaedics - Katrina Nova II, M.D. NAME: MEERA MCKOY CLINIC NO.: [id number] DATE OF SERVICE: 06/19/2021 CHIEF COMPLAINT: Pain in right hip and radiates down the leg. Pain level is 5 and it sometimes goes to an 8/10. WHEN: The last 6 months. HOW: Insidious onset but denies any falls or injuries. WHERE: At home. PAST MEDICAL TREATMENT: NSAIDs: Voltaren and Lodine. PT: Therapy has helped some in the past. Injections: None. PAST SURGICAL TREATMENT: Arthroscopic surgery on the right knee. Bilateral total knees 2009 - Dr. Bronson. REVIEW OF SYSTEMS: Cardiovascular: No history of heart disease. Respiratory: No history of acute or chronic lung disease. Gastrointestinal: No history of ulcers has GERD and takes Tums. Endocrine: No history of diabetes, but he is on Ozempic for weight loss per his family doctor. Heme: No history of phlebitis or blood clots. Urinary: Has some urgency and incontinence. ALLERGIES: SEASONAL. 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 Has no significant tenderness over his greater trochanter. Hips are moderate size. His weight is all in a large belly. X-RAY: AP weight bearing shows [id number] on the superior weightbearing portion of the right hip with degenerative arthritis throughout the joint. IMPRESSION: Severe degenerative arthritis of the right hip. RECOMMEND: 1. Weight loss - discussed intermittent fasting. 2. Patient wants to get some relief of pain before he goes to [place] in July and then is considering having a total hip done upon his return. We have suggested a hip injection by Dr. Elliott. The patient is anxious to have this done, we will schedule. We will plan on doing his hip 3 months after the hip injection. Dictated By: Gordo Nova II, M.D. Date Dictated: 06/19/2021 Date Typed: saadia 06/20/2021 J[facility]# [id number] NoteHNO ID: [id number] Author: RT Eze(R) Service: ? Author Type: Technologist Type: Progress Notes Filed: 06/19/2021 11:31 AM Note Text: Radiology Service Progress Note PATIENT NAME: Meera Mckoy DATE OF SERVICE: June 19, 2021 TIME: 11:31 AM PATIENT IDENTITY VERIFICATION COMPLETED USING TWO (2) IDENTIFIERS: Name and Date of confirmed by patient verbally. FALL SCREENING: Has the patient had 2 falls in the last year or 1 fall with injury or currently using an Ambulatory Assistive Device (Walker, Cane, Wheelchair, Crutches, etc.)? Yes, Patient High Risk for Falls What interventions were put in place to prevent falls during this visit? Instructed Patient to Remain Seated (Not on Exam Table) Until Exam and Increased Observations by Caregivers PATIENT GENDER DATA: Male PATIENT RELEVANT IMPLANT DATA REVIEWED: Not Applicable RADIOLOGY DEPARTMENT: General X-ray: Exam(s) Completed: Pelvis X-Ray: Pelvis with Hip Right PERIPHERAL IV DATA: Not applicable SIGNED BY: Rayna Chapin RT(R) June 19, 2021 11:31 [facility]09-30-2021 Evaluation note* Encounter Date Diagnosis Assessment Notes Treatment Notes Treatment Clinical Notes Feb, Obstructive sleep apnea (ICD-10 - G47.33) He does benefit from treatment and has had good control of sleep apnea in the past. Usage has lately been suboptimal, disturbed by his chronic back discomfort. He has been using the machine half the night most of the time, then going to the recliner without using the machine there. He has had some nights where he has missed using it completely. We reviewed his download with him in detail and he expresses good understanding. I did encourage him to use the machine every night, all night. I suggested that if he needs to sleep in the recliner it could reasonably be used there all night rather than splitting the time between the bed in the chair. He is interested in a new machine if eligible Feb, BMI 37.0-37.9, adult (ICD-10 - Z68.37) Weight reduction is broadly beneficial for most of medical problems, and has particularly positive effects on sleep apnea. In addition if he can bring his body weight down to BMI 36 or lower he could be a candidate for inspire therapy if interested. He is encouraged to continue efforts at progressive weight loss Feb, Other chronic pain (ICD-10 - G89.29) Chronic pain, including the patient's back pain, can cause sleep disturbance all on its own. At the same time, controlling sleep apnea has been shown to reduce pain severity in many patients as sleep consolidation can reduce the intensity of perceived pain [facility] 08-01-2010 History general Narrative - Reported* Type Description Date Medical History hypertension Medical History KATTY Medical History cervical arthritis Medical History glaucoma Medical History prostate cancer Surgical History right TKA 01/2010 Surgical History left TKA 2009 Surgical History bilateral carpal tunnel Surgical History knee arthroscopies Surgical History left shoulder scope with rotato r cuff repair Hospitalization History see surgeries [facility] Evaluation note* Diagnosis Primary osteoarthritis of right hip- Primary Primary localized osteoarthrosis, pelvic region and thigh Primary osteoarthritis of right hip Primary localized osteoarthrosis, pelvic region and thigh documented in this encounter [facility] note* Diagnosis Pre-op evaluation- Primary Preoperative examination, unspecified Primary osteoarthritis of right hip Primary localized osteoarthrosis, pelvic region and thigh Primary hypertension Unspecified essential hypertension Primary osteoarthritis of right hip Primary localized osteoarthrosis, pelvic region and thigh [facility] Diagnosis S/P hip replacement, right- Primary documented in this encounter [facility] note* Diagnosis S/P hip replacement, right- Primary documented in this encounter [facility] note* Diagnosis S/P hip replacement, right- Primary documented in this encounter [facility] note* Diagnosis S/P hip replacement, right- Primary Heterotopic ossification of joint documented in this encounter [facility] noteNo assessment information [facility]Tr[facility] Work Phone: Evaluation note* Diagnosis S/P hip replacement, right documented in this encounter [facility] note* Diagnosis Mixed hyperlipidemia- Primary Essential hypertension, benign Obstructive sleep apnea syndrome Obstructive sleep apnea (adult) (pediatric) documented in this encounter [facility] Work Phone: Evaluation note* Diagnosis Onset Date Resolution Status Greater trochanteric bursitis of right hip acute Heterotopic ossification of joint acute History of total hip arthroplasty [facility] Work Phone: Evaluation note* Diagnosis Pre-op evaluation- Primary Preoperative examination, unspecified Primary osteoarthritis of right hip Primary localized osteoarthrosis, pelvic region and thigh Primary hypertension Unspecified essential hypertension S/P hip replacement, right documented in this encounter [facility] note* Diagnosis Pre-op evaluation- Primary Preoperative examination, unspecified Primary osteoarthritis of right hip Primary localized osteoarthrosis, pelvic region and thigh Primary hypertension Unspecified essential hypertension S/P hip replacement, right documented in this encounter [facility] note* Diagnosis Pre-op evaluation- Primary Preoperative examination, unspecified Primary osteoarthritis of right hip Primary localized osteoarthrosis, pelvic region and thigh Primary hypertension Unspecified essential hypertension S/P hip replacement, right [facility] Primary osteoarthritis of right hip Primary localized osteoarthrosis, pelvic region and thigh [facility] Diagnosis IFG (impaired fasting glucose)- Primary Agatston coronary artery calcium score less than 100 Essential hypertension (CMS/HCC) Unspecified essential hypertension Morbid obesity (CMS/HCC) Morbid obesity [facility] Shortness of breath- Primary Agatston coronary artery calcium score less than 100 Essential hypertension, benign Mixed hyperlipidemia Mild aortic stenosis Aortic valve disorders BMI 35.0-35.9,adult Localized edema Edema documented in this encounter [facility] Work Phone: History of Present illness Narrative* Patient is here for follow-up continue management for hypertension, hyperlipidemia and elevated risk for ischemic heart disease. He underwent extensive evaluation in the past. His previous stress test was negative. He does have elevated calcium scoring. However he has been completely asymptomatic cardiac page. He denies complaint of chest pain, palpitation, lightheadedness, dizziness or syncope. He underwent hip surgery recently without any cardiac issues or complication. * ASSESSMENT: * 1. Remote evaluation for shortness of breath and chest pain with negative cardiac workup several years ago. He remains reasonably active with no changes in cardiac status or symptoms * 2. Elevated risk for ischemic heart disease based on elevated coronary calcium risk score, but he is completely asymptomatic with negative stress test in the past. Effort has been focus on risk factor adjustment * 3. Hypertension, controlled. * 4. Hyperlipidemia, is on atorvastatin and controlled * 5. Obesity with close to 40 pound weight loss * 6. Status post recent hip surgery without any cardiac issues or complication * RECOMMENDATION: * 1. We discussed regarding losing weight, exercise, risk factor adjustment. * 2. Reviewed with him his recent lab work * 3. Follow-up in 1 year and advised him to forward copy of his lab when it is done * 4. Patient advised to notify of change in cardiac status or symptoms -[facility] [place] [address] DO Work Phone: Reason for referral (narrative)* Outpatient Procedure (Routine) - Authorized Specialty Diagnoses / Procedures Referred By Contac t Referred To Contact [facility] Diagnoses Pre-op evaluation Primary osteoarthritis of right hip Procedures ECG COMPLETE ECG ROUTINE ECG W/LEAST 12 LDS W/I&R Maira Doss APRN.CNP [address] [place] [address] [facility] [address] [place] [address] Referral ID Status Reason Start Date Expiration Date Visits Requested Visits Authorized [id number] Authorized Auto-Generat ed Referral 09/10/2021 09/10/2022 1 1 [facility] for referral (narrative)* Diagnostic Procedure Only (Routine) - Pending Review Specialty Diagnoses / Procedures Referred By Contac t Referred To Contact XR IMAGING Diagnoses S/P hip replacement, right Procedures XR PELVIS 1V AP RADIOLOGIC EXAMINATION PELVIS 1/2 VIEWS Lorna Ngo PA-C [address] [place] [address] Xr Imaging Referral ID Status Reason Start Date Expiration Date Visits Requested Visits Authorized [id number] Pending Review Auto-Generat ed Referral 10/28/2021 11/27/2022 1 1 * Diagnostic Procedure Only (Routine) - Closed Specialty Diagnoses / Procedures Referred By Contac t Referred To Contact XR IMAGING Diagnoses S/P hip replacement, right Procedures XR PELVIS 1V AP RADIOLOGIC EXAMINATION PELVIS 1/2 VIEWS Lorna Ngo PA-C [address] [place] [address] Xr Imaging Referral ID Status Reason Start Date Expiration Date V isits Requested Visits Authorized [id number] Closed Auto-Generate d Referral 10/26/2021 11/25/2022 1 1 [facility] for referral (narrative)* Consultation (Routine) - Authorized Specialty Diagnoses / Procedures Referred By Contac t Referred To Contact Cardiology Diagnoses Mixed hyperlipidemia Essential hypertension, benign Procedures Follow Up In Cardiology Cely Marley MD [address] [facility] 2, [address] [address] Cely Marley MD [address] [facility] 2, [facility] [address] [place] [address] Referral ID Status Reason Start Date Expiration Date V isits Requested Visits Authorized [id number] Authorized 04/09/2023 04/08/[address] [facility] Work Phone: [employer] for referral (narrative)* Diagnostic Procedure Only (Routine) - Closed Specialty Diagnoses / Procedures Referred By Contac t Referred To Contact XR IMAGING Diagnoses S/P hip replacement, right Procedures XR PELVIS 1V AP RADIOLOGIC EXAMINATION PELVIS 1/2 VIEWS Lorna Ngo PA-C [address] [place] [address] [place] [address] Referral ID Status Reason Start Date Expiration Date V isits Requested Visits Authorized [id number] Closed Auto-Generate d Referral 05/20/2022 06/19/2023 1 1 [facility] for referral (narrative)* Diagnostic Procedure Only (Routine) - Closed Specialty Diagnoses / Procedures Referred By Contac t Referred To Contact XR IMAGING Diagnoses S/P hip replacement, right Procedures XR PELVIS 1V AP RADIOLOGIC EXAMINATION PELVIS 1/2 VIEWS Gordo Nova MD [address] [place] [address] [place] [address] Referral ID Status Reason Start Date Expiration Date V isits Requested Visits Authorized [id number] Closed Auto-Generate d Referral 01/11/2022 02/10/2023 1 1 [facility] for referral (narrative)* Diagnostic Procedure Only (Routine) - Closed Specialty Diagnoses / Procedures Referred By Contac t Referred To Contact XR IMAGING Diagnoses S/P hip replacement, right Procedures XR PELVIS 1V AP RADIOLOGIC EXAMINATION PELVIS 1/2 VIEWS Lorna Ngo PA-C [address] [place] [address] [place] [address] Referral ID Status Reason Start Date Expiration Date V isits Requested Visits Authorized [id number] Closed Auto-Generate d Referral 10/26/2021 11/25/2022 1 1 [facility] for referral (narrative)* Diagnostic Procedure Only (Routine) - Closed Specialty Diagnoses / Procedures Referred By Contac t Referred To Contact XR IMAGING Diagnoses Primary osteoarthritis of right hip Procedures XR HIP GENERAL 3V PELV/AP/LAT RIGHT RADEX HIP UNILATERAL WITH PELVIS 2-3 VIEWS Gordo Nova MD [address] [place] [address] [place] [address] Referral ID Status Reason Start Date Expiration Date V isits Requested Visits Authorized [id number] Closed Auto-Generate d Referral 06/18/2021 07/18/2022 1 1 [facility] for visit Narrative* Diagnostic Procedure Only (Routine) - Closed Specialty Diagnoses / Procedures Referred By Contac t Referred To Contact XR IMAGING Diagnoses S/P hip replacement, right Procedures XR PELVIS 1V AP RADIOLOGIC EXAMINATION PELVIS 1/2 VIEWS Lorna Ngo PA-C [address] [place] [address] [place] [address] Referral ID Status Reason Start Date Expiration Date V isits Requested Visits Authorized [id number] Closed Auto-Generate d Referral 05/20/2022 06/19/2023 1 1 [facility] for visit Narrative* Diagnostic Procedure Only (Routine) - Closed Specialty Diagnoses / Procedures Referred By Contac t Referred To Contact XR IMAGING Diagnoses S/P hip replacement, right Procedures XR PELVIS 1V AP RADIOLOGIC EXAMINATION PELVIS 1/2 VIEWS Lorna Ngo PA-C [address] [place] [address] [place] [address] Referral ID Status Reason Start Date Expiration Date V isits Requested Visits Authorized [id number] Closed Auto-Generate d Referral 10/26/2021 11/25/2022 1 1 [facility]* Diagnostic Procedure Only (Routine) - Closed Specialty Diagnoses / Procedures Referred By Contac t Referred To Contact XR IMAGING Diagnoses Primary osteoarthritis of right hip Procedures XR HIP GENERAL 3V PELV/AP/LAT RIGHT RADEX HIP UNILATERAL WITH PELVIS 2-3 VIEWS Grodo Nova MD [address] [place] [address] [place] [address] Referral ID Status Reason Start Date Expiration Date V isits Requested Visits Authorized [id number] Closed Auto-Generate d Referral 06/18/2021 07/18/2022 1 1 [facility] Summary Purpose Family History No Family History Records FoundUnknown Family Member Name Dates Details Family history of myocardial infarction: Father(V17.3, Z82.49) Status:Active Family history of CABG: Fath er(V17.49, Z82.49) Status:Active Stroke syndrome: Father, Mot her Status:Active Family history of malignant neoplasm of uterus: Mother(V16.49, Z80.49) Status:Active Relationship Condition Age at Onset Recorded Date/T clive father Cerebrovascular accident (CVA) Unknown Not Specified Cerebrovascular accident (CVA) Unknown Malignant neoplasm of cervix Unknown Relationship Condition Age at Onset Recorded Date/T clive father Cerebrovascular accident (CVA) Unknown mother Cerebrovascular accident (CVA) Unknown Malignant neoplasm of cervix Unknown father Unknown mother Unknown Advance Directives No Advanced Directives Records FoundDocuments on File Type Date Recorded Patient Foundation Coordinator Expl anation Advance Directive(s) 09/09/2021 5:40 PM Advance Directive(s) 02/26/2010 3:22 PM Documents on File Type Date Recorded Patient Foundation Coordinator Expl anation Advance Directive(s) 09/09/2021 5:40 PM Advance Directive(s) 02/26/2010 3:22 PM Documents on File Type Date Recorded Patient Foundation Coordinator Expl anation Advance Directive(s) 10/07/2021 7:42 AM sc anned in on 10/07/21 Advance Directive(s) 10/07/2021 7:39 AM Advance Directive(s) 09/09/2021 5:40 PM Advance Directive(s) 02/26/2010 3:22 PM Documents on File Type Date Recorded Patient Foundation Coordinator Expl anation Advance Directive(s) 10/07/2021 7:42 AM sc anned in on 10/07/21 Advance Directive(s) 10/07/2021 7:39 AM Advance Directive(s) 09/09/2021 5:40 PM Advance Directive(s) 02/26/2010 3:22 PM Documents on File Type Date Recorded Patient Foundation Coordinator Expl anation Advance Directive(s) 10/07/2021 7:39 AM Advance Directive(s) 02/26/2010 3:22 PM Advance Directive Response Recorded Date/ Time Advance Directives Yes February 05, 2017 1:13pm Documents on File Type Date Recorded Patient Foundation Coordinator Expl anation Advance Directive(s) 10/07/2021 7:39 AM Advance Directive(s) 02/26/2010 3:22 PM Advance Directive Response Recorded Date/ Time Advance Directives Yes February 05, 2017 12:13pm Chief Complaint MEERA MCKOY is being seen for an annual follow-up of. Chief Complaint and Reason for Visit Chief Complaint i34.0 r002 Chief Complaint E53.8 Chief Complaint E53.8 [place]A PAIN NX M25.551 - Pain in right hip Reason for Visit Greater trochanteric bursitis of right hip Heterotopic ossification of joint History of total hip arthroplasty Chief Complaint E53.8 NEW RTHA PAIN NX M25.551 - Pain in right hip i35.0 Reason for Visit Greater trochanteric bursitis of right hip Heterotopic ossification of joint History of total hip arthroplasty Chief Complaint Admit Date E53.8 February 04, 2024 8: 57am NEW RTHA PAIN NX February 09, 2024 8: 59am M25.551 - Pain in right hip February 09, 2024 9:02am i35.0 February 11, 2024 8: 01am Amb Documentation April 12, 2024 3 :38pm Mckenna, Hip pain April 25, 2024 7:00am Back Pain April 26, 2024 7:35am Reason for Visit Admit Date Greater trochanteric bursitis of right h ip February 09, 2024 8:59am Heterotopic ossification of joint February 09, 2024 8:59am History of total hip arthroplasty February 09, 2024 8:59am Additional Source Comments (unrecognized sect ion and content) No Status Records FoundNo Status Records FoundNo Status Records FoundNo Status Records FoundNo Status Records FoundNo Status Records FoundNo Status Records FoundNo Status Records FoundNo Status Records Found INFORMATION SOURCE (unrecogn ized section and content) DATE CREATED AUTHOR 03/07/2021 [facility] DATE CREATED AUTHOR AUTHOR'S ORGANIZ ATION 10/01/2021 [facility] dical Specialist DATE CREATED AUTHOR AUTHOR'S ORGANIZ ATION 10/09/2021 [facility] DATE CREATED AUTHOR AUTHOR'S ORGANIZ ATION 01/21/2022 [facility] DATE CREATED AUTHOR AUTHOR'S ORGANIZ ATION 04/11/2022 [facility] DATE CREATED AUTHOR AUTHOR'S ORGANIZ ATION 10/15/2022 [facility] DATE CREATED AUTHOR AUTHOR'S ORGANIZ ATION 04/14/2024 [facility] dical Specialists EPIC DATE CREATED AUTHOR AUTHOR'S ORGANIZ ATION 04/16/2024 [facility] tals Ambulatory DATE CREATED AUTHOR AUTHOR'S ORGANIZ ATION 04/29/2024 [facility] Source Comments (unrecognize d section and content) In the event this informatio n is protected by the Federal Confidentiality of Alcohol and Drug Abuse Patient Records regulations: The Federal rules restrict any use of the information to criminally investigate or prosecute any alcohol or drug abuse patient.[facility] the event this information is protected by the Federal Confidentiality of Alcohol and Drug Abuse Patient Records regulations: The Federal rules restrict any use of the information to criminally investigate or prosecute any alcohol or drug abuse patient.[facility] the event this information is protected by the Federal Confidentiality of Alcohol and Drug Abuse Patient Records regulations: The Federal rules restrict any use of the information to criminally investigate or prosecute any alcohol or drug abuse patient.[facility] the event this information is protected by the Federal Confidentiality of Alcohol and Drug Abuse Patient Records regulations: The Federal rules restrict any use of the information to criminally investigate or prosecute any alcohol or drug abuse patient.[facility] the event this information is protected by the Federal Confidentiality of Alcohol and Drug Abuse Patient Records regulations: The Federal rules restrict any use of the information to criminally investigate or prosecute any alcohol or drug abuse patient.[facility] the event this information is protected by the Federal Confidentiality of Alcohol and Drug Abuse Patient Records regulations: The Federal rules restrict any use of the information to criminally investigate or prosecute any alcohol or drug abuse patient.[facility] the event this information is protected by the Federal Confidentiality of Alcohol and Drug Abuse Patient Records regulations: The Federal rules restrict any use of the information to criminally investigate or prosecute any alcohol or drug abuse patient.[facility] the event this information is protected by the Federal Confidentiality of Alcohol and Drug Abuse Patient Records regulations: The Federal rules restrict any use of the information to criminally investigate or prosecute any alcohol or drug abuse patient.[facility] the event this information is protected by the Federal Confidentiality of Alcohol and Drug Abuse Patient Records regulations: The Federal rules restrict any use of the information to criminally investigate or prosecute any alcohol or drug abuse patient.[facility] the event this information is protected by the Federal Confidentiality of Alcohol and Drug Abuse Patient Records regulations: The Federal rules restrict any use of the information to criminally investigate or prosecute any alcohol or drug abuse patient.[facility] the event this information is protected by the Federal Confidentiality of Alcohol and Drug Abuse Patient Records regulations: The Federal rules restrict any use of the information to criminally investigate or prosecute any alcohol or drug abuse patient.[facility] the event this information is protected by the Federal Confidentiality of Alcohol and Drug Abuse Patient Records regulations: The Federal rules restrict any use of the information to criminally investigate or prosecute any alcohol or drug abuse patient.[facility] Care Teams (unrecognized sec tion and content) Senior Electrical Controls Engineer Relationship Specialty Start Date End Date Mona Reese, DO [address] [place] [address] PCP - General 01/09/10 Senior Electrical Controls Engineer Relationship Specialty Start Date End Date Mona Reese DO [address] [place] [address] PCP - General 01/09/10 Senior Electrical Controls Engineer Relationship Specialty Start Date End Date Mona Reese DO [address] [place] [address] PCP - General 01/09/10 Senior Electrical Controls Engineer Relationship Specialty Start Date End Date Mona Reese DO [address] [place] [address] PCP - General 01/09/10 Senior Electrical Controls Engineer Relationship Specialty Start Date End Date oMna Reese DO [address] [place] [address] PCP - General 01/09/10 Senior Electrical Controls Engineer Relationship Specialty Start Date End Date Mona Reese DO [address] [place] [address] PCP - General 01/09/10 Team Status: Active Member Role Status Dates Mona Reese DO Primary Care Provider Active Team Status: Inactive Member Role Status Dates Mona Reese DO Primary Care Provider, Gini reynoso Active Senior Electrical Controls Engineer Relationship Specialty Start Date End Date Mary Ann Mona Streeter DO [address] [place] [address] PCP - General 01/09/10 Senior Electrical Controls Engineer Relationship Specialty Start Date End Date WilfredMona mehta DO [address] [facility] [address] [place] [address] PCP - General 06/14/99 Team Status: Inactive Member Role Status Dates Mona Reese DO Primary Care Provider Active Start: February 04, 2024 End: February 04, 2024 TRAVIS Yusuf Attending Provider Acti ve Start: February 04, 2024 End: February 04, 2024 Team Status: Inactive Member Role Status Dates Mona Reese DO Primary Care Provider Active Start: February 09, 2024 End: February 09, 2024 Mona Lezama II, MD Attending Provider Active Start: February 09, 2024 End: February 09, 2024 Team Status: Active Member Role Status Dates Mona Reese DO Primary Care Provider Active Start: February 09, 2024 Mona Lezama II, MD Attending Provider Active Start: February 09, 2024 Team Status: Inactive Member Role Status Dates Mona Reese DO Primary Care Provider Active Start: February 11, 2024 End: February 11, 2024 Bib Roa NP-C Attending Provider Active S tart: February 11, 2024 End: February 11, 2024 Senior Electrical Controls Engineer Relationship Specialty Start Date End Date Mona Reese DO [address] [place] [address] PCP - General 01/09/10 Senior Electrical Controls Engineer Relationship Specialty Start Date End Date Mona Reese DO [address] [place] [address] PCP - General 01/09/10 Senior Electrical Controls Engineer Relationship Specialty Start Date End Date Mona Reese DO [address] [place] [address] PCP - General 01/09/10 Senior Electrical Controls Engineer Relationship Specialty Start Date End Date Mona Reese DO [address] [place] [address] PCP - ACO Reach 11/05/22 Mona Reese DO [address] [place] [address] PCP - General Internal Medicine 12/28/22 Senior Electrical Controls Engineer Relationship Specialty Start Date End Date Mona Reese DO [address] [place] [address] PCP - General Internal Medicine 04/14/24 Cely Marley MD [address] [facility] [address] [place] [address] Consulting Physician Cardiology 04/14/24 Team Status: Active Member Role Status Dates Mona Reese DO Primary Care Provider Active Start: February 11, 2024 CARLITOS HackettC Other Provider Active Start : February 11, 2024 Rasheed Myers MD Attending Provider Activ e Start: February 11, 2024 Team Status: Active Member Role Status Dates Mona Reese DO Primary Care Provider Active Start: April 12, 2024 Emely Pennington RN Attending Provider Active St art: April 12, 2024 Team Status: Inactive Member Role Status Dates Mona Reese DO Primary Care Provider Active Start: April 25, 2024 End: April 25, 2024 Mona Lezama II, MD Attending Provider Active Start: April 25, 2024 End: April 25, 2024 Team Status: Active Member Role Status Dates Mona Reese DO Primary Care Provide r, Attending Provider Active Start: April 26, 2024 Reason for Visit (unrecogniz ed section and content) Reason Comments Pre-Op Visit Reason Comments Post Op Reason Comments Radiology XR Reason Comments Follow Up Reason Comments Annual Exam 1yr Reason Comments Radiology XR Specialty Diagnoses / Procedures Referred By Contac t Referred To Contact XR IMAGING Diagnoses S/P hip replacement, right Procedures XR PELVIS 1V AP RADIOLOGIC EXAMINATION PELVIS 1/2 VIEWS Gordo Nova MD [address] [place] [address] [place] [address] Referral ID Status Reason Start Date Expiration Date V isits Requested Visits Authorized [id number] Closed Auto-Generate d Referral 01/11/2022 02/10/2023 1 1 Reason Comments 2 Month Follow Up [facility] the [place] [facility] iglutide Reason Comments Follow-up 1 yr Specialty Diagnoses / Procedures Referred By Contac t Referred To Contact Cardiology Diagnoses Mixed hyperlipidemia Essential hypertension, benign Procedures Follow Up In Cardiology Cely Marley MD [address] [facility] [address] [place] [address] Phone: tel: fax: Cely Marely MD [address] [facility] [address], [facility] [address] [place] [address] Phone: tel: fax: Referral ID Status Reason Start Date Expiration Date V isits Requested Visits Authorized [id number] Authorized 04/09/2023 04/08/2024 1 1 Goals (unrecognized section and content) Goals may be documented in a n alternate section FOR RECORDS PERTAINING TO PATIENTS WHO ARE OR HAVE BEEN ENROLLED IN A CHEMICAL DEPENDENCY/SUBSTANCEABUSE PROGRAM, SOME INFORMATION MAY BE OMITTED. This clinical summary was aggregated from multiple sources. Caution should be exercised in using it in the provision of clinical care. This summary normalizes information from multiple sources, and as a consequence, information in this document may materially change the coding, format and clinical context of patient data. In addition, data may be omitted in some cases. CLINICAL DECISIONS SHOULD BE BASED ON THE PRIMARY CLINICAL RECORDS. [employer] provides no warranty or guarantee of the accuracy or completeness of information in this document.
== END 2024-05-01 09:10 | disposition home or self-care (01) ==
LOC: VC 09:09
PROVIDERS: PCP Radiology Diagnostic Radiology; Visit Provider Radiology Diagnostic Radiology
DX: I83.813 Varicose veins of bilateral lower extremities with pain (principal)
CPT/HCPCS: G0463

== ENCOUNTER 2024-05-25 09:07 | Outpatient (OUT) | payer MEDICARE, OTHER, SELFPAY ==
--- NOTE | 2024-05-24 15:45 | V.VEINS.HP ---
Vital Signs 05/25/24 09:27 BP 132/64 BP Location Right Brachial BP Position Sitting BP Cuff Size Adult BP Source Manual Cuff Respiration 18 Pulse 74 Pulse Source Monitor Pulse Oximetry (%) 98 Oxygen Delivery Method Room Air Comment The patient's blood pressure is elevated. Varicose Veins Patient in this day for EVLT of right GSV Carlos Eduardo Bazzi MD personally performed the services described in this documentation, as scribed by Bay Reaves RN in my presence and it is both accurate and complete. IBay RN, am scribing for, and in the presence of, Dr. Carlos Eduardo Turpin and in the presence of the patient. . thigh: bilateral (left leg > right leg), knee: bilateral, calf: bilateral, ankle: bilateral and gonzalez: bilateral aching, burning, cramping and dull 3 3 months Worsened in recent months: Yes standing elevating extremities Reports muscle spasms of leg, fatigue, heaviness, limb pain and leg edema History of lower extremity trauma: No Superficial thrombophlebitis: No Family history of varicose veins: no Has patient had previous lower extremity venous surgery: No Patient has previously received the following treatment(s) for lower extremity varicose veins: Reports none Does patient have a history of : not applicable Has patient had lower extremity venous scan with relux testing: No Support hose used: No Problems walking or doing physical activity: Yes How does it affect you: unable to exercise due to pain and weakness Do you walk much: Yes Review of Systems ROS Narrative [id number] wound noted to right mid anterior lower leg Carlos Eduardo Bazzi MD personally performed the services described in this documentation, as scribed by Bay Reaves RN in my presence and it is both accurate and complete. Bay Bazzi RN, am scribing for, and in the presence of, Dr. Carlos Eduardo Turpin and in the presence of the patient. Status of ROS 10 or more systems reviewed and unremarkable except as noted in history and below Cardiovascular Reports: edema Integumentary/Breast Reports: skin pain, skin swelling and changes in skin color Neurological Reports: numbness in extremities and weakness in extremities Hematologic/Lymphatic Reports: easy bruising and easy bleeding PFSH [facility] Medical History (Updated 05/25/24 @ 10:04 by Bay Reaves) Phlebitis of superficial vein of right lower extremity ?I80.01 - Phlebitis and thrombophlebitis of superficial vessels of right lower extremity (ICD-10) Prostate CA ?C61 - Malignant neoplasm of prostate (ICD-10) Knee arthropathy ?M17.10 - Unilateral primary osteoarthritis, unspecified knee (ICD-10) 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 ?M19.112 - Post-traumatic osteoarthritis, left shoulder (ICD-10) ?S46.002S - Unspecified injury of muscle(s) and tendon(s) of the rotator cuff of left shoulder, sequela (ICD-10) Kidney stones ?N20.0 - Calculus of kidney (ICD-10) Osteoarthritis of hip ?M16.9 - Osteoarthritis of hip, unspecified (ICD-10) Varicose veins of bilateral lower extremities with pain ?I83.813 - Varicose veins of bilateral lower extremities with pain (ICD-10) Hypertension ?I10 - Essential (primary) hypertension (ICD-10) Obesities, morbid ?E66.01 - Morbid (severe) obesity due to excess calories (ICD-10) Obstructive sleep apnea ?G47.33 - Obstructive sleep apnea (adult) (pediatric) (ICD-10) Angina pectoris ?I20.9 - Angina pectoris, unspecified (ICD-10) Coronary artery disease ?I25.10 - Atherosclerotic heart disease of [place] coronary artery without angina pectoris (ICD-10) Nonrheumatic aortic (valve) stenosis ?I35.0 - Nonrheumatic aortic (valve) stenosis (ICD-10) Surgical History (Updated 05/25/24 @ 10:15 by Bay Reaves) Status post laser ablation of incompetent vein ?Z98.890 - Other specified postprocedural states (ICD-10) History of carpal tunnel surgery ?Z98.890 - Other specified postprocedural states (ICD-10) History of right hip replacement ?Z96.641 - Presence of right artificial hip joint (ICD-10) History of bilateral knee replacement ?Z96.653 - Presence of artificial knee joint, bilateral (ICD-10) Family History (Updated 01/27/24 @ 09:38 by Bay Reaves) Other Aneurysm Family history of hypertension Family history of stroke Social History (Updated 01/27/24 @ 09:42 by Bay Reaves) Within the past year, how often did you have a drink containing alcohol: 2-3 times a week Smoking status: Never smoker Non-prescribed substance use: denies use Meds Home Medications and Allergies Home Medications ?Medication ?Instructions ?Recorded ?Confirmed ?Type amlodipine 5 mg tablet (Norvasc) 5 mg PO DAILY 01/26/24 01/26/24 History aspirin 81 mg capsule 81 mg PO DAILY 01/26/24 01/26/24 History atorvastatin 40 mg tablet 40 mg PO DAILY 01/26/24 01/26/24 History cholecalciferol (vitamin D3) 25 25 mcg PO DAILY 01/26/24 01/26/24 History mcg (1,000 unit) tablet diphenhydramine HCl 25 mg capsule 25 mg PO Q8H PRN allergic reaction 01/26/24 01/26/24 History (Benadryl) losartan 100 mg tablet (Cozaar) 100 mg PO DAILY 01/26/24 01/26/24 History semaglutide (weight loss) 1 mg/0.5 0.25 mg subcut Q7D 01/26/24 01/26/24 History mL subcutaneous pen injector (Wegovy) sildenafil 50 mg tablet (Viagra) 50 mg PO DAILY PRN sexual activity 01/26/24 01/26/24 History tadalafil 10 mg tablet (Cialis) 10 mg PO DAILY PRN sexual activity 01/26/24 01/26/24 History zolpidem 10 mg tablet (Ambien) 01/26/24 History Allergies Allergy/AdvReac Type Severity Reaction Status Date / Time No Known Drug Allergies Allergy Verified 01/26/24 15:42 Exam Narrative Exam Narrative: Carlos Eduardo Bazzi MD personally performed the services described in this documentation, as scribed by Bay Reaves RN in my presence and it is both accurate and complete. Bay Bazzi RN, am scribing for, and in the presence of, Dr. Carlos Eduardo Turpin and in the presence of the patient. Constitutional Documenting provider has reviewed patient's vital signs: yes Common normals: oriented x3 Nutritional appearance: overweight Lymph Lymphatic: no lymphedema noted Cardio Peripheral pulses: posterior tibial pulses present and dorsalis pedis pulses present Extremity Common normals: normal capillary refill General: calf tenderness and edema Right lower extremity: lower leg Right lower leg: inspection and palpation Left lower extremity: lower leg Left lower leg: inspection and palpation Neuro Common normals: oriented x3 Assessment and Plan Assessment and Plan (1) Varicose veins of bilateral lower extremities with pain: Plan Patient to return for f/u examination with physician along with right leg limited u/s ICarlos Eduardo MD personally performed the services described in this documentation, as scribed by Bay Reaves RN in my presence and it is both accurate and complete. IBay RN, am scribing for, and in the presence of, Dr. Carlos Eduardo Turpin and in the presence of the patient. Procedures Procedure Instructions Procedures Plan of care: Risks and benefits of the procedure were discussed at length and informed written consent was obtained.? Time-out completed for verification of correct patient, procedure and site.? Staff present during time-out: Bay Reaves RN,? Carlos Edu[facility] Turpin MD, [facility]. Time Out Time_1001 Patient prepped and procedure performed in usual sterile fashion. Risk of injury related to use of Diode laser and/or laser devices__CR___ ? Serial number of laser used :? [id number] Control panel self test performed, electrical cords in good condition, floor is dry, basin of water available, fire extinguisher in close proximity_CR__ Polycarbonate goggles available and Laser warning signs outside of doors___CR__ Eye protection provided to patient and staff in room_CR___ Use of laser retardant drapes and dull blackened instruments as directed__CR___ Use of nonflammable prep solutions and use of saline soaked sponges to protect tissues as indicated _CR___ Length ___46 cm Laser operated by __Dr. Turpin Physician verbal confirmation laser locked in place__CR__ Laser start time (date and time) _05/25/2024@_1013 Laser stop time(date and time) _05/25/2024@_1018 Thomas _8.0___ Average laser use _2223 Joules Average laser use___278 seconds Pulse continuous ___CR_? Pulse intermittent ___ Amount of Tumescent used _250cc Evaluated patient for signs and symptoms of electrical injury __CR___ ? Skin clear at insertion site __CR___ Patient tolerated procedure well.? Right leg Coban dressing applied to access site.? Applied Right thigh high leg compression stocking. Will return on 05/25/2024 for right leg limited venous ultrasound and exam. ICarlos Eduardo MD personally performed the services described in this documentation, as scribed by Bay Reaves RN in my presence and it is both accurate and complete. I, Bay Reaves RN, am scribing for, and in the presence of, Dr. Carlos Eduardo Turpin and in the presence of the patient.
--- NOTE | 2024-05-24 15:52 | W.VEIN ---
Discharge Plan Discharge Disposition: Home, Self-Care Outpatient Diagnostics: [facility] Facility EST LMTD (Routine) Timeframe: 2 Weeks Facility: [facility] - Location: [facility] Ordered By: Carlos Eduardo Turpin VC EXT Venous RT LMTD (Routine) Timeframe: 2 Weeks Facility: [facility] - Location: Vein Center Ordered By: Carlos Eduardo Turpin Follow Up Appointments: 05/31/2024 Plan of Treatment: f/u examination with physician along with right leg limited u/s Patient Instructions: Endovenous Ablation (DC) Print Language: Slovenian Discharge Date/Time: 05/25/24 10:05
--- NOTE | 2024-05-25 09:14 | VEIN_ITS ---
[address] [address] Patient Name: MEERA WARNER MRN: [id number] date: 1950 Sex: M Assigned Patient Location: Current Patient Location: Accession/Order Number: [id number] Exam Date: 05/25/2024 09:26 Report Date: 05/25/2024 10:55 At the request of: NATHEN OWEN Procedure: VC Endovenous Ablation 1VeinRT EXAMINATION: VC Endovenous Ablation 1Vein right great saphenous vein HISTORY: I83.813 - Varicose veins of bilateral lower extremities w... COMPARISON: No relevant comparison available. TECHNIQUE: The risks and benefits of the procedure had been previously discussed, and were rediscussed at length. Informed written consent was obtained. Liset Guzmán and Bay Reaves assisted. Time out procedure was performed. The right lower extremity was prepared and draped in the usual sterile fashion to allow knee flexion in the sterile field. Duplex ultrasound probe was draped in a sterile cover, sterile transmission gel was used. Venous mapping was performed with the areas of dilation and large tributaries marked. The total length was 46 cm from the entry 18 cm above the medial malleolus to 3 cm below the saphenofemoral junction. The diameter of the greater saphenous vein ranged from 5-7 mm. A 30 gauge needle and 1% buffered lidocaine was used to anesthetize the entry site. A 4 mm incision was made with a scalpel and the saphenous vein was entered percutaneously under direct ultrasound guidance with a micropuncture set, a single stick was successful in gaining access. A micro-guide wire was inserted and the needle removed. A micro-set including a dilator was inserted over the microwire and the needle and dilator were removed. A 0.018 guide wire was inserted through the micro-set and threaded through the saphenous vein to the saphenofemoral junction. The dilator was removed and an introducer sheath was inserted over the wire until the end of the sheath entered the saphenofemoral junction. The dilator and wire were removed and the 600 micron fiber was introduced and placed and positioned so that it extended beyond the sheath and was 3 cm peripheral to the saphenofemoral femoral junction. Final position of the fiber was determined by ultrasound guidance and duplex imaging. Tumescent anesthetic was delivered by ultrasound guidance. 250 cc of fluid was delivered along the entire course of the saphenous vein. The solution consisted of 1000 cc of normal saline with 40 mL of 1% lidocaine and 20 mL of sodium bicarbonate. A final positioning check was made. The energy source was turned on by means of the foot pedal and the fiber and sheath were withdrawn. The total number of Joules delivered was 2223. The laser was active for 278 seconds under continuous pulse, average laser use of 8 J. Laser start time 10:13 AM 05/25/2024 . Laser stop time 10:18 AM 05/25/2024 . A duplex ultrasound revealed compressibility and flow at the saphenofemoral junction immediately after the procedure. Hemostasis at the access site was achieved. The skin incision of the saphenous vein was closed with a 4 x 4. A compression stocking was applied. Postop instructions were given. A follow up appointment was recommended and scheduled. The patient tolerated the procedure well and was discharged in good condition . VEIN/VC Endovenous Ablation 1VeinRT IMPRESSION: Technically successful endovenous laser ablation of the right great saphenous vein Electronically authenticated by: MEERA BRAND Date: 05/25/2024 10:55
[2024-05-25] MEDS: LIDOCAINE HCL 1% 100 MG/10 ML MDV INJ (09:21)
[2024-05-25] MEDS: 0.9 % SODIUM CHLORIDE 500 ML, LIDOCAINE HCL 20 ML, SODIUM BICARBONATE 10 MEQ INJ (09:22)
[2024-05-25 09:27] VITALS: BP 132/64; PULSE 74; O2SAT 98
--- OUTSIDE RECORDS SUMMARY | 2024-05-25 09:30 | XMS_ITS | CCD ---
Author Organization [facility] Care Team Providers Care Cpc Name Role Phone JOBY CEDILLO Attending JOBY Clement Admitting UnavailJOBY Monsivais Attending UnavailJOBY Monsivais Admitting UnavailDR MEERA Garcia V Consulting Unavailable JOBY CEDILLO Consulting UnavailPRASANNA Smith Admitting Unavailable PRASANNA LEE Attending Unavailable PRASANNA LEE Consulting Unavailable DR MONA ERESE Consulting Unavailable JOBY CEDILLO Attending UnavailJOBY Monsivais Admitting Unavailbrandon e Mona Reese DO Primary Care Provider Meera Daugherty Unavailable Mona Reese Unavailable Unavailable Unavailable Mona Reese DO Primary Care Provider Dr. Mona Reese Primary Care Unava ilable Cely Marley Referring Unavailable Cely Marley Attending Unavailable Dr. Mona Reese Primary Care Unava ilable DO Mona Reese Primary Care Provider DO Mona Reese Attending Provider [phone] Mona Reese DO Primary Care Provider DO Mona Reese Primary Care Provider TRAVIS Izquierdo Attending Provider MD Mona Lezama II Attending Provider TRAVIS Roa Attending Provider Mona Reese DO Primary Care Provider Mona Reese DO Unavailable Mona Reese DO Primary Care Provider [phone] MONA REESE Attending Unavailable MONA REESE Referring Unavailable BIB ROA Attending Unavailable MONA REESE Referring Unavailable MONA REESE Referring Unavailable ESSIE DAUGHERTY Attending Unavailable MONA REESE Attending Unavailable MONA REESE Attending Unavailable MONA REESE Attending Unavailable MONA REESE Referring Unavailable Mona Reese DO Primary Care Provider Cely Marley MD Unavailable [phone] CELY MARLEY Attending Unavailable CELY MARLEY Referring Unavailable MONA REESE Primary Care Unavailab Mona Simpson DO Primary Care Provider Essie rGanger Attending Provider Mona Lezama MD Attending Provider Mona Reese DO Attending Provider [phone] Mona Reese [facility] Care Unavailable Essie Izquierdo Admitting Unavail able [...] Comment on above: Take 1 capsule by [facility] once daily. amoxicillin 500 mg oral tablet [...] Comment on above: Take 1 capsule by [facility] twice daily. 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 Copies to: MD [...] -------+ Transcribed By: DEWEY Performed At: 02/11/24 0805 Signed By: Rasheed Myers MD 02/11/24 4251 Normal [facility] XR hip RT min 2V(w/wo pelvis )*on 02-09-2024 XR hip RT min 2V(w/wo pelvis)* [facility] [address] [place] [address] XRay Report Signed Patient: Meera Mckoy MR#: [id number] : 1950 Acct:[id number] Age/Sex: 73 / M ADM Date: 02/09/24 Loc: [facility] Room: Type: [facility] Attending Dr: Mona Lezama II, MD Copies [...] 2:52 PM Dictation Location: RADIO-PC-15 Transcribed By: [facility] 02/09/24 145 Dictated By: Ferdinand Mckeon Jr, DO 02/09/241451 Signed By: 08/28/24 1452 Normal [facility] Automated basophil %Ordered By: Essie Daugherty-Catarino on 02-04-2024 Basophils/100 WBC (Bld) 0.8 % Normal . [facility] Comment on above: Performed By: #### C BC, B12, BMP #### [address] Automated basophil countOrde red By: Essie Daugherty-Catarino on 02-04-2024 Basophils (Bld) [#/Vol] 0.0 10*3/uL Normal 0.0-0.2 [facility] Comment on above: Result Comment: PERF ORMED BY: [place] [address] PATHOLOGIST ELEVATOR ERECTOR HELPER KENNY SOLITARIO M.D. Performed By: #### C BC, B12, BMP #### [address] Automated blood monocyte cou ntOrdered By: Essie Daugherty-Catarino on 02-04-2024 Monocytes (Bld) [#/Vol] 0.8 10*3/uL Normal 0.0-0.8 [facility] Comment on above: Performed By: #### C BC, B12, BMP #### [address] Automated eosinophil %Ordere d By: Essie Izquierdo on 02-04-2024 Eosinophils/100 WBC (Bld) 4.0 % Normal . [facility] Comment on above: Performed By: #### C BC, B12, BMP #### [address] Automated eosinophil countOr dered By: Essie Daugherty-Catarino on 02-04-2024 Eosinophils (Bld) [#/Vol] 0.2 10*3/uL Normal 0.0-0.45 [facility] Comment on above: Performed By: #### C BC, B12, BMP #### [address] Automated monocyte %Ordered By: Essiereji Izquierdo on 02-04-2024 Monocytes/100 WBC (Bld) 13.4 % Normal . [facility] Comment on above: Performed By: #### C BC B12, BMP #### [address] Automated neutrophil %Ordere d By: Essie Izquierdo on 02-04-2024 Neutrophils/100 WBC (Bld) 67.2 % Normal . [facility] Comment on above: Performed By: #### C BC B12, BMP #### [address] Basic Metabolic Panelon 01-13 GFR/1.73 sq M.predicted MDRD (S/P/Bld) [Vol rate/Area] mL/min/{1.73_m2} Normal [facility] Comment on above: Performed By: #### C CLAUDIO B12, BMP #### [facility] [address] [place] [address] Basophils Auto (Bld) [#/Vol] Ordered By: Essie Izquierdo on 02-04-2024 Basophils (Bld) [#/Vol] Automated basoph il count 0.0-0.2 [facility] Basophils/100 WBC Auto (Bld) Ordered By: Essie Camargoverson on 02-04-2024 Basophils/100 WBC (Bld) Automated basophil % . [facility] Calcium [Mass/volume] in Ser um or PlasmaOrdered By: Essie Izquierdo on 02-04-2024 Calcium [Mass/Vol] 9.3 mg/dL Normal 8.6-10.3 [facility] Comment on above: Performed By: #### C BC, B12, BMP #### [facility] [address] [place] [address] Calcium [Mass/Vol] Calcium [Mass/volume ] in Serum or Plasma 8.6-10.3 [facility] Carbon dioxide, total [Moles /volume] in Serum or PlasmaOrdered By: Essie Izquierdo on 02-04-2024 CO2 [Moles/Vol] 27.3 mmol/L Normal 21.0-31.0 [facility] Comment on above: Performed By: #### C BC, B12, BMP #### [facility] [address] CO2 [Moles/Vol] Carbon dioxide, tota l [Moles/volume] in Serum or Plasma 21.0-31.0 [facility] Chloride [Moles/volume] in S rossy or PlasmaOrdered By: Essie Izquierdo on 02-04-2024 Chloride [Moles/Vol] 106 mmol/L Normal 98-107 [facility] Comment on above: Performed By: #### C BC, B12, BMP #### [facility] [address] Chloride [Moles/Vol] Chloride [Moles/volume] in Serum or Plasma 98-107 [facility] Complete Blood Count Auto Di ffon 02-04-2024 Mean Corpuscular HGB Conc 34.3 g/dL Normal 32.5-35.6 [facility] Comment on above: Performed By: #### C BC, B12, BMP #### [facility] [address] NRBC% 0.1 /100{WBC} Normal 0-0.5 [facility] Comment on above: Performed By: #### C CLAUDIO B12, BMP #### [facility] [address] [place] [address] [place] Creatinine [Mass/volume] in Serum or PlasmaOrdered By: Essie Izquierdo on 02-04-2024 Creatinine [Mass/Vol] 0.96 mg/dL Normal 0.70-1.30 [facility] Comment on above: Performed By: #### C BC, B12, BMP #### [facility] [address] Creatinine [Mass/Vol] Creatinine [Mass/volume] in Serum or Plasma 0.70-1.30 [facility] Eosinophils Auto (Bld) [#/Vo l]Ordered By: Essie Izquierdo on 02-04-2024 Eosinophils (Bld) [#/Vol] Automated eosinophil count 0.0-0.45 [facility] Eosinophils/100 WBC Auto (Bl d)Ordered By: Essie Izquierdo on 02-04-2024 Eosinophils/100 WBC (Bld) Automated eosinophil % . [facility] Erythrocyte distribution wid th Auto (RBC) [Ratio]Ordered By: Essie Toribio on 02-04-2024 Erythrocyte distribution width (RBC) [Ratio] Erythrocyte distribution width [Ratio] by Automated count 12.0-14.8 [facility] Erythrocyte distribution wid th [Ratio] by Automated countOrdered By: Essie Izquierdo on 02-04-2024 Erythrocyte distribution width (RBC) [Ratio] 12.9 % Normal 12.0-14.8 [facility] Comment on above: Performed By: #### C CLAUDIO B12, BMP #### [address] Erythrocytes [#/volume] in B lood by Automated countOrdered By: Essie Izquierdo on 02-04-2024 RBC (Bld) [#/Vol] 4.12 10*6/uL Normal 3.90-5.[address] [facility] Comment on above: Performed By: #### C CLAUDIO B12, BMP #### [address] Glucose [Mass/volume] in Ser um or PlasmaOrdered By: Essie Izquierdo on 02-04-2024 Glucose [Mass/Vol] 90 mg/dL Normal 70-100 [facility] Comment on above: ADA recommended refe rence rangeRandom Glucose Reference Range is dependent on time and content of last meal. Glucose of more than 200 mg/dL in a nonstressed, ambulatory subject supports the diagnosis of Diabetes Mellitus. Result Comment: [place] Glucose Reference Range is dependent on time and content of last meal. Glucose of more than 200 mg/dL in a nonstressed, ambulatory subject supports the diagnosis of Diabetes Mellitus. ADA recommended reference range Performed By: #### C BC, B12, BMP #### [facility] [address] Glucose [Mass/Vol] Glucose [Mass/volume ] in Serum or Plasma 70-100 [facility] Comment on above: ADA recommended refe rence rangeRandom Glucose Reference Range is dependent on time and content of last meal. Glucose of more than 200 mg/dL in a nonstressed, ambulatory subject supports the diagnosis of Diabetes Mellitus. Hematocrit Auto (Bld) [Volum e fraction]Ordered By: Essie Izquierdo on 02-04-2024 Hematocrit (Bld) [Volume fraction] Hematocrit [Volume Fraction] of Blood by Automated count 38.8-50.0 [facility] Hematocrit [Volume Fraction] of Blood by Automated countOrdered By: Essie Izquierdo on 02-04-2024 Hematocrit (Bld) [Volume fraction] 40.3 % Normal 38.8-50.0 [facility] Comment on above: Performed By: #### C CLAUDIO, B12, BMP #### [facility] [address] Hemoglobin [Mass/volume] in BloodOrdered By: Essie Izquierdo on 02-04-2024 Hemoglobin (Bld) [Mass/Vol] 13.8 g/dL Normal 13.0-17.0 [facility] Comment on above: Performed By: #### C CLAUDIO, B12, BMP #### [facility] [address] [place] [address] Hemoglobin (Bld) [Mass/Vol] Hemoglobin [Mass/volume] in Blood 13.0-17.0 [facility] Leukocytes [#/volume] correc saul for nucleated erythrocytes in Blood by Automated counOrdered By: Essie Izquierdo on 02-04-2024 WBC corrected for nucl RBC Auto (Bld) [#/Vol] 6.1 10*3/uL 4.1-10.5 [facility] WBC corrected for nucl RBC Auto (Bld) [#/Vol] Leukocytes [#/volume] corrected for nucleated erythrocytes in Blood by Automated coun 4.1-10.5 [facility] Leukocytes [#/volume] in Blo od by Automated countOrdered By: Essie Toribio on 02-04-2024 WBC (Bld) [#/Vol] 6.1 10*3/uL Normal 4.1-10.5 [facility] Comment on above: Performed By: #### C Lake SNYDER, BMP #### [address] Lymphocytes Auto (Bld) [#/Vo l]Ordered By: Essie Nolberto-Catarino on 02-04-2024 Lymphocytes (Bld) [#/Vol] Lymphocytes [#/volume] in Blood by Automated count Low 1.00-4.8 [facility] Lymphocytes [#/volume] in Bl ood by Automated countOrdered By: Essie Nolberto- Catarino on 02-04-2024 Lymphocytes (Bld) [#/Vol] 0.9 10*3/uL Low 1.00-4.8 [facility] Comment on above: Performed By: #### C Lake SNYDER, BMP #### [address] Lymphocytes/100 WBC Auto (Bl d)Ordered By: Essie Nolberto-Catarino on 02-04-2024 Lymphocytes/100 WBC (Bld) Lymphocytes/100 leukocytes in Blood by Automated count . [facility] Lymphocytes/100 leukocytes i n Blood by Automated countOrdered By: Essie Nolberto-Catarino on 02-04-2024 Lymphocytes/100 WBC (Bld) 14.6 % Normal . [facility] Comment on above: Performed By: #### C CLAUDIO B12, BMP #### [address] MCH Auto (RBC) [Entitic mass ]Ordered By: Essie Nolberto-Catarino on 02-04-2024 MCH (RBC) [Entitic mass] MCH [Entitic mass] by Automated count 27.5-35.2 [facility] MCH [Entitic mass] by Automa saul countOrdered By: Essie Nolberto-Catarino on 02-04-2024 MCH (RBC) [Entitic mass] 33.5 pg Normal 27.5-35.2 [facility] Comment on above: Performed By: #### C BC B12, BMP #### [facility] [address] MCHC Auto (RBC) [Mass/Vol]Or dered By: Essie Izquierdo on 02-04-2024 MCHC (RBC) [Mass/Vol] 34.3 g/dL 32.5-35.6 [facility] MCHC (RBC) [Mass/Vol] MCHC [Mass/volume] by Automated count 32.5-35.6 [facility] MCV Auto (RBC) [Entitic vol] Ordered By: Essie Izquierdo on 02-04-2024 MCV (RBC) [Entitic vol] MCV [Entitic vol ume] by Automated count 83.5-101 [facility] MCV [Entitic volume] by Auto mated countOrdered By: Essie Izquierdo on 02-04-2024 MCV (RBC) [Entitic vol] 97.7 fL Normal 83.5-101 [facility] Comment on above: Performed By: #### C BC, B12, BMP #### [facility] [address] Monocytes Auto (Bld) [#/Vol] Ordered By: Essie Izquierdo on 02-04-2024 Monocytes (Bld) [#/Vol] Automated blood monocyte count 0.0-0.8 [facility] Monocytes/100 WBC Auto (Bld) Ordered By: Essie Izquierdo on 02-04-2024 Monocytes/100 WBC (Bld) Automated monocyte % . [facility] Neutrophils Auto (Bld) [#/Vo l]Ordered By: Essie Izquierdo on 02-04-2024 Neutrophils (Bld) [#/Vol] Neutrophils [#/volume] in Blood by Automated count 1.8-7.7 [facility] Neutrophils [#/volume] in Bl ood by Automated countOrdered By: Essie Toribio on 02-04-2024 Neutrophils (Bld) [#/Vol] 4.1 10*3/uL Normal 1.8-7.7 [facility] Comment on above: Performed By: #### C CLAUDIO, B12, BMP #### [facility] [address] [place] [address] [place] Neutrophils/100 WBC Auto (Bl d)Ordered By: Essie Izquierdo on 02-04-2024 Neutrophils/100 WBC (Bld) Automated neutrophil % . [facility] No Panel InformationOrdered By: Essie Izquierdo on 02-04-2024 Estimated GFR (CKD-EPI) > 60.0 mL/Min [facility] Creatinine Clearance (Chem N/A [facility] Nucleated erythrocytes [Pres ence] in Blood by Automated countOrdered By: Essie Izquierdo on 02-04-2024 Nucleated RBC Auto Ql (Bld) 0.1 /100{WBC} 0-0.5 [facility] Nucleated RBC Auto Ql (Bld) Nucleated erythrocytes [Presence] in Blood by Automated count 0-0.5 [facility] Platelet mean volume Auto (B ld) [Entitic vol]Ordered By: Essie Izquierdo on 02-04-2024 Platelet mean volume (Bld) [Entitic vol] Platelet mean volume [Entitic volume] in Blood by Automated count 6.6-10.1 [facility] Platelet mean volume [Entiti c volume] in Blood by Automated countOrdered By: Essie Izquierdo on 02-04-2024 Platelet mean volume (Bld) [Entitic vol] 9.4 fL Normal 6.6-10.1 [facility] Comment on above: Performed By: #### C CLAUDIO, B12, BMP #### [facility] [address] [place] [address] [place] Platelets Auto (Bld) [#/Vol] Ordered By: Essie Izquierdo on 02-04-2024 Platelets (Bld) [#/Vol] Platelets [#/vol ume] in Blood by Automated count 150-450 [facility] Platelets [#/volume] in Bloo d by Automated countOrdered By: Essie Toribio on 02-04-2024 Platelets (Bld) [#/Vol] 192 10*3/uL Normal 150-450 [facility] Comment on above: Performed By: #### C Lake SNYDER, BMP #### [facility] [address] [place] [address] [place] Potassium [Moles/volume] in Serum or PlasmaOrdered By: Essie Izquierdo on 02-04-2024 Potassium [Moles/Vol] 4.3 mmol/L Normal 3.5-5.1 [facility] Comment on above: Performed By: #### C CLAUDIO B12, BMP #### [facility] [address] [place] [address] [place] Potassium [Moles/Vol] Potassium [Moles/volume] in Serum or Plasma 3.5-5.1 [facility] RBC Auto (Bld) [#/Vol]Ordere d By: Essie Izquierdo on 02-04-2024 RBC (Bld) [#/Vol] Erythrocytes [#/volume] in Blood by Automated count 3.90-5.60 [facility] Serum or plasma anion gap de terminationOrdered By: Essie Izquierdo on 02-04-2024 Anion gap [Moles/Vol] 11.0 mmol/L Normal 6.0-15.0 [facility] Comment on above: Performed By: #### C CLAUDIO B12, BMP #### [place] [address] [place] Anion gap [Moles/Vol] Serum or plasma an ion gap determination 6.0-15.0 [facility] Sodium [Moles/volume] in Ser um or PlasmaOrdered By: Essie Izquierdo on 02-04-2024 Sodium [Moles/Vol] 140 mmol/L Normal 136-145 [facility] Comment on above: Performed By: #### C CLAUDIO B12, BMP #### [place] [address] [place] Sodium [Moles/Vol] Sodium [Moles/volume ] in Serum or Plasma 136-145 [facility] Urea nitrogen [Mass/volume] in Serum or PlasmaOrdered By: Essie Toribio on 02-04-2024 Urea nitrogen [Mass/Vol] 20 mg/dL Normal 01-05 [facility] Comment on above: Performed By: #### C BC, B12, BMP #### [facility] [address] Urea nitrogen [Mass/Vol] Urea nitrogen [Mass/volume] in Serum or Plasma 01-05 [facility] Vitamin B12 ser/plasOrdered By: Essie Izquierdo on 02-04-2024 Cobalamin (Vitamin B12) [Mass/Vol] 224 pg/mL Normal 180- [facility] Comment on above: Result Comment: PERF ORMED BY: [facility] [address] [place] [address] PATHOLOGIST ELEVATOR ERECTOR HELPER KENNY SOLITARIO M.D. Performed By: #### C BC, B12, BMP #### [facility] [address] [place] [address] [facility] Cobalamin (Vitamin B12) [Mass/Vol] Vitamin B12 ser/plas [facility] WBC Auto (Bld) [#/Vol]Ordere d By: Essie Izquierdo on 02-04-2024 WBC (Bld) [#/Vol] Leukocytes [#/volume ] in Blood by Automated count 4.1-10.5 [facility] XR Pelvis APon 07-06-2022 IMPRESSION: Intact right hip arthroplasty. Increased heterotopic ossification. Commercial Installer: TAPAN Transcribe Date/Time: Jul 06 2022 9:58A Dictated by : GORDO ANDRE MD This examination was interpreted and the report reviewed and electronically signed by: GORDO ANDRE MD on Jul 06 2022 9:59AM [facility] DIVISION OF RADIOLOGY * * *Final Report* [...] erosions. DIVISION OF RADIOLOGY Provider, Daniel Mejia [facility] - 07/06/2022 * * *Final Report* * [...] Intact right hip arthroplasty. Increased heterotopic ossification. Commercial Installer: PSCB Transcribe Date/Time: Jul 06 2022 9:58A Dictated by : GORDO ANDRE MD This examination was interpreted and the report reviewed and electronically signed by: GORDO ANDRE MD on Jul 06 2022 9:59AM EST [facility] Radiology Study observation (narrative) [facility] XR Pelvis APOrdered By: Ccf Provider on 07-06-2022 [facility] Office Visit (Cardiology)on 04-10-2022 Follow-up visit Diagnoses/Problems [...] However he has been completely asymptomatic cardiac pgae. He denies complaint of chest pain, palpitation, [...] Recorded: 10Apr2022 11:29AM Heart Rate68, R Radial Impakbok184, RUE, Sitting Kudxbkqct20, RUE, Sitting Height5 ft 11 in Zoetty028 lb BMI Risrtpdoum40.8 kg/m2 BSA Calculated2.23 Tobacco Useb) No PHQ-2 #1. Over the last 2 weeks have you felt down, depressed or hopeless? (If yes, answer PHQ-9 below)No PHQ (more content not included)... Normal [place] Tobacco Screening.on 022 Adult depression screening assessment No [facility] y [address] DO Work Phone: Fall risk assessment a) No falls within the last year [facility] [address] DO Work Phone: Tobacco use status [facility] b) No [facility] y 250 DO Work Phone: CNOVon 01-16-2022 CNOV Office Visit (LOORRM ) TIMMYMEERA Dayana ([id number]) 1950 M Date Time Provider Department 01/16/22 [...] replacement, right [Z96.641] Order(s):XR PELVIS 1V AP [[id number]] Order #: [id number] FUTURE Prescriptions as of 01/16/2022 - Amoxicillin [...] 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 Prominent developing heterotopic ossifications. Commercial Installer: T[employer]AN Transcribe Date/Time: Jan 16 2022 1:35P Dictated by : LILLI BEAULIEU MD This examination was interpreted and the report reviewed and electronically signed by: LILLI BEAULIEU MD on Jan 16 2022 1:36PM EST [id number] Normal [facility] XR Pelvis APon 01-16-2022 IMPRESSION: Right hip arthroplasty without complication. Prominent developing heterotopic ossifications. Commercial Installer: [facility] Transcribe Date/Time: Jan 16 2022 1:35P [...] arthroplasty without complication. Prominent developing heterotopic ossifications. 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 Normal [facility] XR PELVIS 1V APon 10-29-2021 XR [...] lumbar spine. IMPRESSION: Intact right hip arthroplasty Commercial Installer: [employer] Transcribe Date/Time: Oct 29 2021 12:35P Dictated by : RICKY JAMISON DO This examination was interpreted and the report reviewed and electronically signed by: WOJCIECH IBARRA MD on Oct 29 2021 1:43PM EST [id number] Normal [facility] XR Pelvis APon 10-29-2021 IMPRESSION: Intact right hip arthroplasty Commercial Installer: PSC Transcribe Date/Time: Oct 29 2021 12:35P [...] lumbar spine. [id number] E_DIVISION OF RADIOLOGY Provider, [facility] - 10/29/2021 * * *Final Report* * [...] spine. 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] 02/11/2010 Osteoarth NOS-l/leg [TDD0859] 04/07/2010 Malignant neoplasm of prostate (HCC) [C61] [...] for Encounter Date Provider Department Center 10/24/2021 [id number] NGO Encounter Status:Closed by LORNA NGO on 10/29/21 Normal [facility] Basic metabolic 2000 panelon 10-08-2021 Anion gap [Moles/Vol] 9 mmol/L Normal 9-18 [facility] Comment on above: Order Comment: Speci men Type: BLOOD SPECIMENOrdering Facility: [facility] Address: [address] [place] [address] Performed By: #### 2 4321-2 ####[facility] LABORATORYIA [id number] [place] [address] [place] Calcium [Mass/Vol] 8.9 mg/dL Normal 8.5-10.2 [facility] Comment on above: Order Comment: Speci men Type: BLOOD SPECIMENOrdering Facility: [facility] Address: [address] [place] [address] Performed By: #### 2 4321-2 ####[facility] [id number] [place] [address] [place] Chloride [Moles/Vol] 102 mmol/L Normal 97-105 [facility] Comment on above: Order Comment: Speci men Type: BLOOD SPECIMENOrdering Facility: [facility] Address: [address] [place] [address] Performed By: #### 2 4321-2 ####[facility] [id number] [place] [address] [place] CO2 [Moles/Vol] 25 mmol/L Normal 22-30 [facility] Comment on above: Order Comment: Speci men Type: BLOOD SPECIMENOrdering Facility: [facility] Address: [address] [place] [address] Performed By: #### 2 4321-2 ####[facility] [id number] [place] [address] [place] Creatinine [Mass/Vol] 1.01 mg/dL Normal 0.73-1.22 [facility] Comment on above: Order Comment: Jose David keeley Type: BLOOD SPECIMENOrdering Facility: [facility] Address: [address] [address] Performed By: #### 2 4321-2 ####[facility]ORATORYCLIA [id number] [place] [address] [place] ESTIMATED GLOMERULAR FILTRATION RATE 80 mL/min/1.73m??? Normal >=60 [facility] Comment on above: Order Comment: Jose David [facility] Type: BLOOD SPECIMENOrdering Facility: [facility] Address: [address] [place] [address] Result Comment: Pam mated Glomerular Filtration Rate [...] actual GFR. Performed By: #### 2 4321-2 ####[facility] LABORATORYCLIA [id number] [place] [address] [place] Glucose [Mass/Vol] 126 mg/dL High 74-99 [facility] Comment on above: Order Comment: Jose David keeley Type: BLOOD SPECIMENOrdering Facility: [facility] Address: [address] [place] [address] Result Comment: The [place] Diabetes Association (ADA) provides guidance for cutoff [...] Standards of Medical Care in Diabetes 2016, [place] Diabetes Association. Diabetes Care. 2016.39(Suppl 1). Performed By: #### 2 4321-2 ####[facility] [id number] [place] [address] [place] Potassium [Moles/Vol] 4.3 mmol/L Normal 3.7-5.1 [facility] Comment on above: Order Comment: Speci men Type: BLOOD SPECIMENOrdering Facility: [facility] Address: [address] [place] [address] Performed By: #### 2 4321-2 ####[facility]ATORYIA [id number] [place] [address] [place] Sodium [Moles/Vol] 136 mmol/L Normal 136-144 [facility] Comment on above: Order Comment: Speci men Type: BLOOD SPECIMENOrdering Facility: [facility] Address: [address] [place] [address] Performed By: #### 2 4321-2 ####[facility] [id number] [address] [place] Urea nitrogen [Mass/Vol] 22 mg/dL Normal 9-24 [facility] Comment on above: Order Comment: Speci men Type: BLOOD SPECIMENOrdering Facility: [facility] Address: [address] [place] [address] Performed By: #### 2 4321-2 ####[facility] [id number] [address] OF [place] CBC panel Auto (Bld)on 10-08 Erythrocyte distribution width (RBC) [Ratio] 12.3 % Normal 11.5-15.0 [facility] Comment on above: Order Comment: Speci men Type: BLOOD SPECIMENOrdering Facility: [facility] Address: [address] [place] [address] Performed By: #### 5 8410-2 ####[facility] [id number] [place] [address] [place] Hematocrit (Bld) [Volume fraction] 35.7 % Low 39.0-51.0 [facility] Comment on above: Order Comment: Speci men Type: BLOOD SPECIMENOrdering Facility: [facility] Address: [address] [place] [address] Performed By: #### 5 8410-2 ####[facility] [id number] [address] STATES OF [facility] Hemoglobin (Bld) [Mass/Vol] 12.2 g/dL Low 13.0-17.0 [facility] Comment on above: Order Comment: Speci men Type: BLOOD SPECIMENOrdering Facility: [facility] Address: [address] [place] [address] Performed By: #### 5 8410-2 ####[facility] [id number] [address] [place] MCH (RBC) [Entitic mass] 33.0 pg Normal 26.0-34.0 [facility] Comment on above: Order Comment: Speci men Type: BLOOD SPECIMENOrdering Facility: [facility] Address: [address] [place] [address] Performed By: #### 5 8410-2 ####[facility] [id number] [address] [place] MCHC (RBC) [Mass/Vol] 34.2 g/dL Normal 30.5-36.0 [facility] Comment on above: Order Comment: Speci men Type: BLOOD SPECIMENOrdering Facility: [facility] Address: [address] [place] [address] Performed By: #### 5 8410-2 ####[facility] [id number] [address] OF [facility] MCV (RBC) [Entitic vol] 96.5 fL Normal 80.0-100.0 [facility] Comment on above: Order Comment: Speci men Type: BLOOD SPECIMENOrdering Facility: [facility] Address: [address] [place] [address] Performed By: #### 5 8410-2 ####[facility]ORATORYIA [id number] [place] [address] [place] Nucleated RBC (Bld) [#/Vol] 10*3/uL Normal <0.01 [facility] Comment on above: Order Comment: Speci men Type: BLOOD SPECIMENOrdering Facility: [facility] Address: [address] [place] [address] Performed By: #### 5 8410-2 ####[facility] [id number] [place] [address] [place] Platelet mean volume (Bld) [Entitic vol] 10.8 fL Normal 9.0-12.7 [facility] Comment on above: Order Comment: Speci men Type: BLOOD SPECIMENOrdering Facility: [facility] Address: [address] [place] [address] Performed By: #### 5 8410-2 ####[facility] [id number] [place] [address] [place] Platelets (Bld) [#/Vol] 235 10*3/uL Normal 150-400 [facility] Comment on above: Order Comment: Speci men Type: BLOOD SPECIMENOrdering Facility: [facility] Address: [address] [place] [address] Performed By: #### 5 8410-2 ####[facility] [id number] [place] [address] [place] RBC (Bld) [#/Vol] 3.70 10*6/uL Low 4.20-6.00 [facility] Comment on above: Order Comment: Speci men Type: BLOOD SPECIMENOrdering Facility: [facility] Address: [address] [place], [place] [address] Performed By: #### 5 8410-2 ####[facility] [id number] [place] [address] [place] WBC (Bld) [#/Vol] 16.82 10*3/uL High 3.70-11.00 [facility] Comment on above: Order Comment: Speci men Type: BLOOD SPECIMENOrdering Facility: [facility] Address: [address], [place] [address] Performed By: #### 5 8410-2 ####[facility] LABORATORYCLIA [id number] [place] [address] [facility] CNDSon 10-08-2021 CNDS HNO ID: [id number] Author: NELSON Kay Service: Orthopaedic Surgery Author Type: Physician Buffet Server Type: Discharge Summary Filed: 10/08/2021 11:14 AM [...] Phone 10/29/2021 9:00 AM LORNA [facility] Clara [phone] 11/07/2021 12:00 PM AVTAR GORDO Herson Elizabeth [phone] SIGNATURE: NELSON Kay PATIENT NAME: Meera Mckoy DATE: 10/08/21 TIME: 9:05 AM [facility] NURSING PROGon 10-08-2021 NURSING PROG HNO ID: [id number] Author: Dian Torres RN Service: ? Author Type: Registered Nurse Type: Nursing Progress Note Filed: 10/08/2021 4:39 AM Note Text: Nursing Progress Note Patient Name: Meera Mckoy Patient [place] [address] [address] __ Daily Note:Pt OOB with assist and a walker X3. Up to the bathroom X2. Ambulated to the end of the hallway and back X2. This note was completed by: Dian Torres [facility] THERAPY NTon 10-08-2021 THERAPY NT HNO ID: [id number] Author: Yuki Whtiman OT/Henrik Service: ? Author Type: Occupational Therapist Type: Therapy (PT/OT/Speech/Resp) Filed: 10/08/2021 12:18 PM Note Text: Occupational Therapy Evaluation SERVICE DATE: 10/08/2021 SERVICE TIME: 1051 to 1200 ROOM: [place] [address] Patient cleared to DC from OT standpoint. 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 Given info to order sock aid. Spouse [...] (ADL);General symptoms and signs-other Interventions Provided: Evaluation;Self Detention Management (64936) $ Evaluation-Low (25189) Billed Units: 1 unit Self Detention Management (11604) Treatment Minutes: 54 $ Self Detention Management (84325) Billed Units: 4 units Training AND education [...] 54 Skilled (more content not included)... Normal [facility] THERAPY NT HNO ID: [id number] Author: Damari Ordoñez PT Service: Physical Therapy Author Type: Physical Therapist Type: Therapy (PT/OT/Speech/Resp) Filed: 10/08/2021 10:53 AM Note Text: Physical Therapy Treatment SERVICE DATE: 10/08/2021 SERVICE TIME: 0957 to 1040 ROOM: [place] [address] Recommended Discharge Disposition: Outpatient Physical Therapy Recommended [...] gait and mobility-other Interventions Provided: Therapeutic Exercise (31603);Therapeutic Activity (49666);Gait Training (82771) Therapeutic Exercise (48935) Treatment Minutes: 15 $ Therapeutic Exercise (80536) Billed Units: 1 unit Review of written [...] crossing legs (more content not included)... Normal [facility] ANES POSTPROC EVALon 022 ANES POSTPROC EVAL HNO ID: [id number] Author: Arnulfo Bianchi MD Service: Anesthesiology Author [...] October 07, 2021 TIME: 12:48 PM CSN: [id number] [facility] ANES PRE-OPon 10-07-2021 ANES PRE-OP HNO ID: [id number] Author: Arnulfo Bianchi MD Service: Anesthesiology Author Type: Physician Type: Anesthesia Preprocedure Evaluation Filed: 10/07/2021 8:27 AM Note Text: ANESTHESIOLOGY DAY OF SURGERY NOTE : 1950 Procedure Information Date/Time: 10/07/2145 Procedure: ARTHROPLASTY REPLACE JOINT TOTAL HIP (Right Hip) Location: [place] [address] / OR Surgeons: Gordo Nova MD Estimated [...] and consent discussed: yes. Patient / Responsible Democrat agrees to proceed: yes Patient / Surrogate [...] October 07, 2021 TIME: 8:27 AM CSN: [id number] [facility] CONFIRM BLOOD TYPEon 022 ABO O [facility] Comment on above: Order Comment: Speci men Type: BLOOD SPECIMENOrdering Facility: [facility] Address: [address] [place] [address] Performed By: #### C ONABO ####[facility] [id number] [address] Rh Nom (Bld) Positive Normal [facility] Comment on above: Order Comment: Speci men Type: BLOOD SPECIMENOrdering Facility: [facility] Address: [address] [place] [address] Performed By: #### C ONABO ####[facility] [id number] [address] OPERATIVE NOon 10-07-2021 OPERATIVE NO HNO ID: [id number] Author: Gordo Nova MD Service: Orthopaedic Surgery Author Type: Physician Type: Operative Report Filed: 10/07/2021 11:32 AM Note Text: [facility] OPERATIVE REPORT PATIENT NAME: Meera Mckoy AGE: [age] year old LOG ID: [id number] Surgery Date: 10/07/2021 SURGEON: Gordo Nova MD SIDEWALK REPAIRER: Lorna Ngo PA-C, SA, her assistance consisted [...] banked allogenic blood if medically necessary. IMPLANTS: [employer] Total Hip System SIZE TYPE Acetabulum [...] * I (more content not included)... Normal [facility] THERAPY NTon 10-07-2021 THERAPY NT HNO ID: [id number] Author: Damari Ordoñez, PT Service: Physical Therapy Author Type: Physical Therapist Type: Therapy (PT/OT/Speech/Resp) Filed: 10/07/2021 5:26 PM Note Text: Physical Therapy Evaluation SERVICE DATE: 10/07/2021 SERVICE TIME: 1633 to 1714 ROOM: [place] [address] Recommended Discharge Disposition: Outpatient Physical Therapy Recommended [...] Ana Lilia decreased;Step length decreased;Flexed trunk posture [facility]: 7: Walk 25 feet or more Learning/Educational [...] gait and mobility-other Interventions Provided: Evaluation;Therapeutic Exercise (17013);Gait Training (70289) $ Evaluation-Low (16249) Billed Units: 1 unit Therapeutic Exercise (12613) Treatment Minutes: 15 $ Therapeutic Exercise (05551) Billed Units: 1 unit Pt instructed in [...] verbalized understand (more content not included)... Normal [facility] XR PELVIS 1V APon 10-07-2021 [...] IMPRESSION: STATUS POST RIGHT TOTAL HIP REPLACEMENT. Commercial Installer: TAPAN Transcribe Date/Time: Oct 07 2021 12:45P Dictated by : LISETH MAN MD This examination was interpreted and the report reviewed and electronically signed by: LISETH MAN MD on Oct 07 2021 12:46PM EST [id number] [facility] SARS-CoV-2 RNA Resp Ql CHIRAG+p [facility] 10-04-2021 SARS-CoV-2 (COVID-19) RNA CHIRAG+probe Ql (Resp) COVID 19 RESULT: SARS-CoV-2 (Agent of COVID-19) Not Detected by RT-PCR or equivalent method. This test was developed and its performance characteristics determined by [facility]'s [facility] [place]. This test has been authorized by FDA under an Emergency Use Authorization (EUA). This test has been validated in accordance with the FDA's Guidance Document Policy for Diagnostics Testing in Laboratories Certified to Perform High Complexity Testing under CLIA prior to Emergency use Authorization for Coronavirus Disease 2019 during the Public Health Emergency issued on August 12, 2019. Test performed by [facility], [facility] [place], [address] [place] [address]. Normal [facility] Comment on above: Performed By: #### 9 4500-6 ####[facility] LABCLIA [id number] [place] [address] [facility] [place] Comprehensive Metabolic Pane urfino 09-26-2021 Albumin [Mass/Vol] 4.6 g/dL Normal 3.6-5.1 [facility] [place] Comment on above: Performed By: #### C MP #### [facility] [address], [place] [id number] Albumin/Globulin [Mass ratio] 2.6 {ratio} High 1.0-2.5 [place] [facility] Comment on above: Performed By: #### C MP #### [facility] [address], [place] [id number] ALP [Catalytic activity/Vol] 79 U/L Normal 40-129 [facility] Comment on above: Performed By: #### C MP #### [facility] [address], [place] [id number] ALT [Catalytic activity/Vol] 26 U/L Normal 9-46 [facility] Specialist Comment on above: Result Comment: 05/14 Female reference range changed. Performed By: #### C MP #### [facility] [address], [place] [id number] Anion gap [Moles/Vol] 20 mmol/L Normal 12-20 [facility] Comment on above: Result Comment: Effe ctive 06/19/2019 reference range changed. Performed By: #### C MP #### [facility] [address], [place] [id number] AST [Catalytic activity/Vol] 24 U/L Normal 10-40 [facility] Comment on above: Performed By: #### C MP #### [facility] [address], [place] [id number] Bilirubin [Mass/Vol] 0.69 mg/dL Normal 0.30-1.20 [facility] Comment on above: Performed By: #### C MP #### [facility] [address], [place] [id number] BUN/CREA 26 Ratio High 6-22 [facility] Comment on above: Performed By: #### C MP #### [facility] [address], [place] [id number] Calcium [Mass/Vol] 10.1 mg/dL Normal 8.6-10.2 [facility] Comment on above: Performed By: #### C MP #### [facility] [address], [place] [id number] Chloride [Moles/Vol] 100 mmol/L Normal 98-107 [facility] Comment on above: Performed By: #### C MP #### [facility] [address], [place] [id number] CO2 [Moles/Vol] 22 mmol/L Normal 20-31 [place] [facility] Comment on above: Performed By: #### C MP #### [facility] [address], [place] [id number] Creatinine [Mass/Vol] 0.9 mg/dL Normal 0.7-1.4 [facility] Specialist Comment on above: Performed By: #### C MP #### [facility] [address], [place] [id number] eGFRAA 96 mL/min/1.73m2 Normal >60 [facility] Comment on above: Performed By: #### C MP #### [facility] [address], [place] [id number] eGFRNAA 79 mL/min/1.73m2 Normal >60 [facility] Comment on above: Performed By: #### C MP #### [facility] [address], [place] [id number] Globulin (S) [Mass/Vol] 1.8 g/dL Low 1.9-3.7 Nina [facility] Comment on above: Performed By: #### C MP #### [facility] [address], [place] [id number] Glucose [Mass/Vol] 88 mg/dL Normal 65-99 [facility] [place] [place] Comment on above: Result Comment: For FASTING Glucose --- ADA reference ranges: Normal 65-99 mg/dl Prediabetes 100-125 Diabetes >/= 126 Performed By: #### C MP #### [facility] [address], [place] [id number] Potassium [Moles/Vol] 4.4 mmol/L Normal 3.5-5.5 [facility] Comment on above: Performed By: #### C MP #### [facility] [address], [place] [id number] Protein [Mass/Vol] 6.4 g/dL Normal 6.1-8.1 [facility] Comment on above: Performed By: #### C MP #### [facility] [address], [place] [id number] Sodium [Moles/Vol] 137 mmol/L Normal 135-146 [facility] Comment on above: Performed By: #### C MP #### [facility] [address], [place] [id number] Urea nitrogen [Mass/Vol] 24 mg/dL Normal 7-25 [facility] Comment on above: Performed By: #### C MP #### [facility] [address], [place] [id number] Hemoglobin A1Con 09-26-[address] [facility] Comment on above: Performed By: #### A 1C #### [facility] [address], [place] [id number] HbA1c (Bld) [Mass fraction] 5.3 % Normal 4.0-6.0 [facility] Comment on above: Performed By: #### A 1C #### [facility] [address], [place] [id number] Microalbumin (with Creat)on 09-26-2021 mALB <1.[address] [facility] Comment on above: Result Comment: Unab le to calculate mALB/Crea ratio, mALB is <1.2 mg/dL mALB reference range not established. Performed By: #### m ALBC #### [facility] [address], [place] [id number] UCREA 148 mg/dL Normal 39-259 [facility] [place] Comment on above: Performed By: #### m ALBC #### [facility] [address], [place] [id number] Q - URINALYSIS,COMPLETEon Appearance (U) CLEAR Normal CLEAR [facility] Specialist Comment on above: Order Comment: [facility] performed at: [facility], [facility], [address] [facility], [address] [place] [address], [place], [address], Foreign Policy Officer: Ottoniel Best MD [facility] Date/Time: [facility] Results Received Date/Time: [facility] Reported Date/Time: Performed By: #### 3 4F #### [facility] Default [address] [place] [address] BACTERIA NONE SEEN Normal NONE SEEN [facility] Comment on above: Order Comment: [facility] performed at: [employer], [employer] [facility], [address] , [address] [place] [address], [address] [place] [address], Foreign Policy Officer: Ottoniel Best MD [facility] Date/Time: [facility] Results Received Date/Time: [facility] Reported Date/Time: Performed By: #### 3 4F #### [facility] Default [address] [place] [address] Bilirubin Ql (U) Negative Normal NEGATIVE [facility] Comment on above: Order Comment: [facility] performed at: [employer], [employer] [facility], [address] , [address] [place] [address], [address] [place] [address], Foreign Policy Officer: Ottoniel Best MD [facility] Date/Time: [facility] Results Received Date/Time: [facility] Reported Date/Time: Performed By: #### 3 4F #### [facility] [address] [place] [address] Color (U) YELLOW Normal YELLOW [facility] Comment on above: Order Comment: [facility] performed at: [employer], [employer] [facility], [address] , [address] [place] [address], [address] [place] [address], Foreign Policy Officer: Ottoniel Best MD [facility] Date/Time: [facility] Results Received Date/Time: [facility] Reported Date/Time: Performed By: #### 3 4F #### [facility] Default [address] [place] [address] Glucose Ql (U) Negative Normal NEGATIVE [facility] Comment on above: Order Comment: [facility] performed at: [employer], [employer] [facility], [address] , [address] [place] [address], [address] [place] [address], Foreign Policy Officer: Ottoniel Best MD [facility] Date/Time: [facility] Results Received Date/Time: [facility] Reported Date/Time: Performed By: #### 3 4F #### [facility] Default [address] [place] [address] HYALINE CAST NONE SEEN Normal NONE SEEN [facility] Comment on above: Order Comment: [facility] performed at: [facility], [employer] [facility], [address] [facility], [address] [place] [address], [address] [place] [address], Foreign Policy Officer: Ottoniel Best MD [facility] Date/Time: [facility] Results Received Date/Time: [facility] Reported Date/Time: Performed By: #### 3 4F #### [facility] Default [address] [place] [address] Ketones Ql (U) Negative Normal NEGATIVE [facility] Comment on above: Order Comment: [facility] performed at: [employer] [facility] [facility], [employer], [address] , [address] [place] [address], [address] [place] [address], Foreign Policy Officer: Ottoniel Best MD [facility] Collection Date/Time: [facility] Results Received Date/Time: [facility] Reported Date/Time: Performed By: #### 3 4F #### [facility] Default [address] [place] [address] Leukocyte esterase Test strip Ql (U) Negative Normal NEGATIVE [facility] [place] Comment on above: Order Comment: [facility] Testing performed at: [facility], [employer] [facility], [address] [facility], [address] [place] [address], [address] [place] [address], Foreign Policy Officer: Ottoniel Best MD [facility] Collection Date/Time: [facility] Results Received Date/Time: [facility] Reported Date/Time: Performed By: #### 3 4F #### [facility] Default [address] [place] [address] Nitrite Ql (U) Negative Normal NEGATIVE [facility] [place] Comment on above: Order Comment: [facility] Testing performed at: [facility], [employer] [facility], [address] [facility], [address] [place] [address], [address] [place] [address], Foreign Policy Officer: Ottoniel Best MD [facility] Collection Date/Time: [facility] Results Received Date/Time: [facility] Reported Date/Time: Performed By: #### 3 4F #### [facility] Default [address] [place] [address] OCCULT BLOOD Negative Normal NEGATIVE [facility] [place] Comment on above: Order Comment: [facility] Testing performed at: [employer], [employer] [facility], [address] [place] [address], [address] [place] [address], [address] [place] [address], Foreign Policy Officer: Ottoniel Best MD [facility] Collection Date/Time: [facility] Results Received Date/Time: [facility] Reported Date/Time: Performed By: #### 3 4F #### [facility] Default [address] [place] [address] pH (U) 5.5 [pH] Normal 5.0-8.0 [facility] [place] Comment on above: Order Comment: [facility] Testing performed at: [employer], [employer] [facility], 5 [facility], [address] [place] [address], [address] [place] [address], Foreign Policy Officer: Ottoniel Best MD [facility] Collection Date/Time: [facility] Results Received Date/Time: [facility] Reported Date/Time: Performed By: #### 3 4F #### [facility] Default [address] [place] [address] Protein Ql (U) Negative Normal NEGATIVE [facility] [place] Comment on above: Order Comment: [facility] Testing performed at: [employer], [employer] [facility], 5 [facility], [address] [place] [address], [address] [place] [address], Foreign Policy Officer: Ottoniel Best MD [facility] Collection Date/Time: [facility] Results Received Date/Time: [facility] Reported Date/Time: Performed By: #### 3 4F #### [facility] Default [address] [place] [address] RBC NONE SEEN Normal < OR = 2 [facility] [place] Comment on above: Order Comment: [facility] Testing performed at: [employer], [employer] [facility], [address] [facility], [address] [place] [address], [address] [place] [address], Foreign Policy Officer: Ottoniel Best MD [facility] Collection Date/Time: [facility] Results Received Date/Time: [facility] Reported Date/Time: Performed By: #### 3 4F #### [facility] Default [address] [place] [address] Specific gravity (U) [Rel density] 1.022 Normal 1.001-1.035 [facility] [place] Comment on above: Order Comment: [facility] Testing performed at: [employer], [employer] [facility], [address] [place] [address], [address] [place] [address], [address] [place] [address], Foreign Policy Officer: Ottoniel Best MD [facility] Collection Date/Time: [facility] Results Received Date/Time: [facility] Reported Date/Time: Performed By: #### 3 4F #### [facility] Default [address] [place] [address] SQUAMOUS EPITHELIAL CELLS NONE SEEN Normal < OR = 5 [facility] [place] Comment on above: Order Comment: [facility] Testing performed at: [employer], [employer] [facility], [address] [place] [address], [address] [place] [address], [address] [place] [address], Foreign Policy Officer: Ottoniel Best MD [facility] Collection Date/Time: [facility] Results Received Date/Time: [facility] Reported Date/Time: Performed By: #### 3 4F #### [facility] Default [address] [place] [address] WBC NONE SEEN Normal < OR = 5 [facility] [place] Comment on above: Order Comment: [facility] Testing performed at: [employer], [employer] [facility], [address] [facility], [address] [place] [address], [address] [place] [address], Foreign Policy Officer: Ottoniel Best MD [facility] Collection Date/Time: [facility] Results Received Date/Time: [facility] Reported Date/Time: Performed By: #### 3 4F #### [facility] Default [address] [place] [address] Bacteria Ur Culton 2 Bacteria identified Cx Nom (U) CULTURE, URINE: No growth (<1,000 CFU/ml) Normal [facility] Comment on above: Performed By: #### 6 30-4 ####[facility] LABCLIA [id number] [place] [address] [place] Basic metabolic 2000 panelon 09-10-2021 Anion gap [Moles/Vol] 10 mmol/L Normal 9-18 [facility] Comment on above: Order Comment: Speci men Type: BLOOD SPECIMENOrdering Facility: [facility] Address: [address] [place] [address] Performed By: #### 2 4321-2 ####[facility] LABCLIA [id number] [place] [address] [place] Calcium [Mass/Vol] 10.0 mg/dL Normal 8.5-10.2 [facility] Comment on above: Order Comment: Speci men Type: BLOOD SPECIMENOrdering Facility: [facility] Address: [address] [place] [address] Performed By: #### 2 4321-2 ####[facility] LABCLIA [id number] [place] [address] [place] Chloride [Moles/Vol] 101 mmol/L Normal 97-105 [facility] Comment on above: Order Comment: Speci men Type: BLOOD SPECIMENOrdering Facility: [facility] Address: [address] [place], [place] [address] Performed By: #### 2 4321-2 ####[facility] LABCLIA [id number] [place] [address] [place] CO2 [Moles/Vol] 27 mmol/L Normal 22-30 [facility] Comment on above: Order Comment: Speci men Type: BLOOD SPECIMENOrdering Facility: [facility] Address: [address] [address] Performed By: #### 2 4321-2 ####[facility] [id number] [address] STATES [facility] Creatinine [Mass/Vol] 1.12 mg/dL Normal 0.73-1.22 [facility] Comment on above: Order Comment: Speci men Type: BLOOD SPECIMENOrdering Facility: [facility] Address: [address] [place] [address] Performed By: #### 2 4321-2 ####[facility] [id number] [address] STATES OF [facility] ESTIMATED GLOMERULAR FILTRATION RATE 70 mL/min/1.73m??? Normal >=60 [facility] Comment on above: Order Comment: Césari men Type: BLOOD SPECIMENOrdering Facility: [facility] Address: [address] [place] [address] Result Comment: Pam mated Glomerular Filtration Rate [...] actual GFR. Performed By: #### 2 4321-2 ####[facility] LABIA [id number] [address] [place] Glucose [Mass/Vol] 96 mg/dL Normal 74-99 [facility] Comment on above: Order Comment: Speci men Type: BLOOD SPECIMENOrdering Facility: [facility] Address: [address] [place] [address] Result Comment: The [place] Diabetes Association (ADA) provides guidance for cutoff [...] Standards of Medical Care in Diabetes 2016, [place] Diabetes Association. Diabetes Care. 2016.39(Suppl 1). Performed By: #### 2 4321-2 ####[facility] LABCLIA [id number] [place] [address] [place] Potassium [Moles/Vol] 4.6 mmol/L Normal 3.7-5.1 [facility] Comment on above: Order Comment: Jose David mina Type: BLOOD SPECIMENOrdering Facility: [facility] Address: [address] [place] [address] Performed By: #### 2 4321-2 ####[facility] LABIA [id number] [place] [address] [place] Sodium [Moles/Vol] 138 mmol/L Normal 136-144 [facility] Comment on above: Order Comment: Jose David mina Type: BLOOD SPECIMENOrdering Facility: [facility] Address: [address] [place] [address] Performed By: #### 2 4321-2 ####[facility] LABIA [id number] [place] [address] [place] Urea nitrogen [Mass/Vol] 19 mg/dL Normal 9-24 [facility] Comment on above: Order Comment: Césari men Type: BLOOD SPECIMENOrdering Facility: [facility] Address: [address] [place] [address] Performed By: #### 2 4321-2 ####[facility] LABCLIA [id number] [place] [address] [place] CBC W Auto Differential pane l (Bld)on 09-10-2021 Basophils (Bld) [#/Vol] 0.04 10*3/uL Normal <0.11 [facility] Comment on above: Order Comment: Speci men Type: BLOOD SPECIMENOrdering Facility: [facility] Address: [address] [place], [place] [address] Performed By: #### 5 7021-8 ####[facility] LABCLIA [id number] [facility] [place] [address] [place] Basophils/100 WBC (Bld) 0.6 % Normal [facility] Comment on above: Order Comment: Speci men Type: BLOOD SPECIMENOrdering Facility: [facility] Address: [address] [place], [place] [address] Performed By: #### 5 7021-8 ####[facility] LABCLIA [id number] [place] [address] [place] Differential cell count method Nom (Bld) Auto Normal [facility] Comment on above: Order Comment: Speci men Type: BLOOD SPECIMENOrdering Facility: [facility] Address: [address] [place], [place] [address] Performed By: #### 5 7021-8 ####[facility] LABCLIA [id number] [place] [address] [place] Eosinophils (Bld) [#/Vol] 0.27 10*3/uL Normal <0.46 [facility] Comment on above: Order Comment: Speci men Type: BLOOD SPECIMENOrdering Facility: [facility] Address: [address] [place], [place] [address] Performed By: #### 5 7021-8 ####[facility] LABCLIA [id number] [place] [address] [place] Eosinophils/100 WBC (Bld) 3.8 % Normal [facility] Comment on above: Order Comment: Speci men Type: BLOOD SPECIMENOrdering Facility: [facility] Address: [address] [place], [place] [address] Performed By: #### 5 7021-8 ####[facility] LABCLIA [id number] [address] [place] Erythrocyte distribution width (RBC) [Ratio] 12.8 % Normal 11.5-15.0 [facility] Comment on above: Order Comment: Speci men Type: BLOOD SPECIMENOrdering Facility: [facility] Address: [address] [place], [place] [address] Performed By: #### 5 7021-8 ####[facility] LABIA [id number] [address] [place] Hematocrit (Bld) [Volume fraction] 43.5 % Normal 39.0-51.0 [facility] Comment on above: Order Comment: Speci men Type: BLOOD SPECIMENOrdering Facility: [facility] Address: [address] [place], [place] [address] Performed By: #### 5 7021-8 ####[facility] LABIA [id number] [place] [address] [place] Hemoglobin (Bld) [Mass/Vol] 14.4 g/dL Normal 13.0-17.0 [facility] Comment on above: Order Comment: Speci men Type: BLOOD SPECIMENOrdering Facility: [facility] Address: [address] [place], [place] [address] Performed By: #### 5 7021-8 ####[facility] LABIA [id number] [place] [address] [place] IMMATURE GRAN % 0.7 % Normal [facility] Comment on above: Order Comment: Speci men Type: BLOOD SPECIMENOrdering Facility: [facility] Address: [address] [place], [place] [address] Performed By: #### 5 7021-8 ####[facility] LABIA [id number] [place] [address] [place] IMMATURE GRAN ABS 0.05 k/uL Normal <0.10 [facility] Comment on above: Order Comment: Speci men Type: BLOOD SPECIMENOrdering Facility: [facility] Address: [address] [place] [address] Performed By: #### 5 7021-8 ####[facility] LABCLIA [id number] [place] [address] [place] Lymphocytes (Bld) [#/Vol] 1.20 10*3/uL Normal 1.00-4.00 [facility] Comment on above: Order Comment: Speci men Type: BLOOD SPECIMENOrdering Facility: [facility] Address: [address] [place] [address] Performed By: #### 5 7021-8 ####[facility] LABCLIA [id number] [address] STATES OF [facility] Lymphocytes/100 WBC (Bld) 16.7 % Normal [facility] Comment on above: Order Comment: Speci men Type: BLOOD SPECIMENOrdering Facility: [facility] Address: [address] [place] [address] Performed By: #### 5 7021-8 ####[facility] LABCLIA [id number] [address] [place] MCH (RBC) [Entitic mass] 32.4 pg Normal 26.0-34.0 [facility] Comment on above: Order Comment: Speci men Type: BLOOD SPECIMENOrdering Facility: [facility] Address: [address] [place], [place] [address] Performed By: #### 5 7021-8 ####[facility] LABCLIA [id number] [address] [place] MCHC (RBC) [Mass/Vol] 33.1 g/dL Normal 30.5-36.0 [facility] Comment on above: Order Comment: Speci men Type: BLOOD SPECIMENOrdering Facility: [facility] Address: [address] [place], [place] [address] Performed By: #### 5 7021-8 ####[facility] LABIA [id number] [address] [place] MCV (RBC) [Entitic vol] 98.0 fL Normal 80.0-100.0 C [facility] Comment on above: Order Comment: Speci men Type: BLOOD SPECIMENOrdering Facility: [facility] Address: [address] [place], [place] [address] Performed By: #### 5 7021-8 ####[facility] [id number] [place] [address] [place] Monocytes (Bld) [#/Vol] 0.85 10*3/uL Normal <0.87 [facility] Comment on above: Order Comment: Speci men Type: BLOOD SPECIMENOrdering Facility: [facility] Address: [address] [place], [place] [address] Performed By: #### 5 7021-8 ####[facility] [id number] [address] [place] Monocytes/100 WBC (Bld) 11.9 % Normal C [facility] Comment on above: Order Comment: Speci men Type: BLOOD SPECIMENOrdering Facility: [facility] Address: [address] [place], [place] [address] Performed By: #### 5 7021-8 ####[facility] LABSPR[facility] [id number] [place] [address] [place] Neutrophils (Bld) [#/Vol] 4.76 10*3/uL Normal 1.45-7.50 [facility] Comment on above: Order Comment: Speci men Type: BLOOD SPECIMENOrdering Facility: [facility] Address: [address] [place], [place] [address] Performed By: #### 5 7021-8 ####[facility] LABCLIA [id number] [place] [address] [place] Neutrophils/100 WBC (Bld) 66.3 % Normal [facility] Comment on above: Order Comment: Speci men Type: BLOOD SPECIMENOrdering Facility: [facility] Address: [address] [place], [place] [address] Performed By: #### 5 7021-8 ####[facility] LABIA [id number] [place] [address] [place] Nucleated RBC (Bld) [#/Vol] 10*3/uL Normal <0.01 [facility] Comment on above: Order Comment: Speci men Type: BLOOD SPECIMENOrdering Facility: [facility] Address: [address] [place], [place] [address] Performed By: #### 5 7021-8 ####[facility] LABIA [id number] [place] [address] [place] Nucleated RBC/100 WBC (Bld) [Ratio] 0.0 /100 WBC Normal [facility] Comment on above: Order Comment: Speci men Type: BLOOD SPECIMENOrdering Facility: [facility] Address: [address] [place], [place] [address] Performed By: #### 5 7021-8 ####[facility] LABIA [id number] [place] [address] [place] Platelet mean volume (Bld) [Entitic vol] 11.2 fL Normal 9.0-12.7 [facility] Comment on above: Order Comment: Speci men Type: BLOOD SPECIMENOrdering Facility: [facility] Address: [address] [place] [address] Performed By: #### 5 7021-8 ####[facility] LABIA [id number] [place] [address] [place] Platelets (Bld) [#/Vol] 265 10*3/uL Normal 150-400 [facility] Comment on above: Order Comment: Speci men Type: BLOOD SPECIMENOrdering Facility: [facility] Address: [address] [place] [address] Performed By: #### 5 7021-8 ####[facility] LABCLIA [id number] [place] [address] [place] RBC (Bld) [#/Vol] 4.44 10*6/uL Normal 4.20-6.00 [facility] Comment on above: Order Comment: Speci men Type: BLOOD SPECIMENOrdering Facility: [facility] Address: [address] [place] [address] Performed By: #### 5 7021-8 ####[facility] LABCLIA [id number] [place] [address] [place] WBC (Bld) [#/Vol] 7.17 10*3/uL Normal 3.70-11.00 [facility] Comment on above: Order Comment: Speci men Type: BLOOD SPECIMENOrdering Facility: [facility] Address: [address] [place] [address] Performed By: #### 5 7021-8 ####[facility] LABCLIA [id number] [place] [address] [place] CNOVon 09-10-2021 CNOV Office Visit (LOORRM ) MEERA MCKOY ([id number]) 1950 M Date Time Provider Department 09/10/21 9:30 AM [facility] During your visit today, we recorded the following information about you: Weight Height 110.7 kg 1.803 m Lorna Ngo PA-C 09/10/2021 12:03 PM Signed CONSULT ORTHOPAEDIC: HIP PRIMARY CARE PHYSICIAN: Mona Reese, DO, DO REFERRING PROVIDER: Gordo Nova II [address] [facility] [address] ASSESSMENT AND PLAN: Impression: Right Hip Severe [...] which include walking 2 blocks, gardening, 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 Normal [facility] HGB A1Con 09-10-2021 Average glucose Estimated from glycated hemoglobin (Bld) [Mass/Vol] 100 mg/dL Normal [facility] Comment on above: Order Comment: Speci men Type: BLOOD SPECIMENOrdering Facility: [facility] Address: [address] [place] [address] Result Comment: eAG: (Estimated average glucose) is a calculated value from HgbA1c and is community engagement representative of the average blood glucose level in the last 2-3 month period. Performed By: #### H BA1C ####[facility] LABCLIA [id number] [address] HbA1c (Bld) [Mass fraction] 5.1 % Normal 4.3-5.6 [facility] Comment on above: Order Comment: Specsuzie mina Type: BLOOD SPECIMENOrdering Facility: [facility] Address: [address] [place] [address] Result Comment: [place] Diabetes Association guidelines indicate that patients with HgbA1c in the range 5.7-6.4% are at increased risk for development of diabetes, and intervention by lifestyle modification may be beneficial. HgbA1c greater or equal to 6.5% is considered diagnostic of diabetes. Performed By: #### H BA1C ####[facility] LABCLIA [id number] [address] OF [facility] HISTORY PHYSICALon HISTORY PHYSICAL HNO ID: [id number] Author: Maira Doss APRN.SENIOR FINANCIAL ANALYST Service: ? Author Type: Nurse Practitioner Type: [...] fevers. 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 No neurological symptoms or problems. Respiratory: No history of current cough or dyspnea, or pneumonia in the past 6 weeks. No history of respiratory/pulmonary symptoms or problems. + KATTY wears CPAP Cardiovascular: Negative for Recent [place], Arrhythmia, Susana (more content not included)... Normal [facility] TYPE AND SCREEN,30 DAYon ABO O Normal [facility] Comment on above: Order Comment: Speci men Type: BLOOD SPECIMENOrdering Facility: [facility] Address: [address] [place] [phone] Performed By: #### T SCR30 ####[facility] BANKCLIA [id number] [place], [place] [id number] [place] [address] [place] HISTORICAL AB SCR STATUS Negative Normal [facility] Comment on above: Order Comment: Speci men Type: BLOOD SPECIMENOrdering Facility: [facility] Address: [address] [place] [address] Performed By: #### T SCR30 ####[facility]OD [facility] [id number] [place] [address] [place] Rh Nom (Bld) Positive Normal [facility] Comment on above: Order Comment: Speci men Type: BLOOD SPECIMENOrdering Facility: [facility] Address: [address] [place] [address] Performed By: #### T SCR30 ####[facility] [id number] [address] [place] Urinalysis complete panel (U )on 09-10-2021 Bilirubin Ql (U) Negative Normal Negative [facility] Comment on above: Order Comment: Speci men Type: URINE SPECIMENOrdering Facility: [facility] [facility] Address: [address] [place] [address] Performed By: #### 2 4356-8 ####[facility] LABCLIA [id number] [address] [place] Clarity (Unsp spec) Clear Normal Clear [facility] Comment on above: Order Comment: Speci men Type: URINE SPECIMENOrdering Facility: [facility] Address: [address] [place], [place] [id number] Performed By: #### 2 4356-8 ####[facility] LABCLIA [id number] [place] [address] [place] Color (U) Straw Normal Yellow [facility] Comment on above: Order Comment: Speci men Type: URINE SPECIMENOrdering Facility: [facility] Address: [address] [place], [place] [address] Performed By: #### 2 4356-8 ####[facility] LABCLIA [id number] [facility] [place] [address] [place] Glucose Test strip (U) [Mass/Vol] Negative Normal Negative [facility] Comment on above: Order Comment: Speci men Type: URINE SPECIMENOrdering Facility: [facility] Address: [address] [place] [address] Performed By: #### 2 4356-8 ####[facility] LABCLIA [id number] [place] [address] [place] Hemoglobin Ql (U) Negative Normal Negative [facility] Comment on above: Order Comment: Speci men Type: URINE SPECIMENOrdering Facility: [facility] Address: [address] [place] [address] Performed By: #### 2 4356-8 ####[facility] LABCLIA [id number] [place] [address] [place] Ketones Ql (U) Negative Normal Negative [facility] Comment on above: Order Comment: Speci men Type: URINE SPECIMENOrdering Facility: [facility] Address: [address] [place], [place] [address] Performed By: #### 2 4356-8 ####[facility] LABCLIA [id number] [address] [place] Leukocyte esterase Test strip Ql (U) Negative Normal Negative [facility] Comment on above: Order Comment: Speci men Type: URINE SPECIMENOrdering Facility: [facility] Address: [address] [place] [address] Performed By: #### 2 4356-8 ####[facility] LABCLIA [id number] [place] [address] [place] Nitrite Ql (U) Negative Normal Negative [facility] Comment on above: Order Comment: Speci men Type: URINE SPECIMENOrdering Facility: [facility] Address: [address] [place] [address] Performed By: #### 2 4356-8 ####[facility] LABCLIA [id number] [place] [address] [place] pH (U) 7.0 [pH] Normal 5.0-8.0 [facility] Comment on above: Order Comment: Speci men Type: URINE SPECIMENOrdering Facility: [facility] Address: [address] [place], [place] [address] Performed By: #### 2 4356-8 ####[facility] LABIA [id number] [place] [address] [place] Protein (U) [Mass/Vol] Negative Normal Negative Cl [facility] Comment on above: Order Comment: Speci men Type: URINE SPECIMENOrdering Facility: [facility] Address: [address] [place], [place] [address] Performed By: #### 2 4356-8 ####[facility] LABIA [id number] [place] [address] [place] RBC LM.HPF (Urine sed) [#/Area] 0-3 /HPF Normal 0-3 /HPF [facility] Comment on above: Order Comment: Speci men Type: URINE SPECIMENOrdering Facility: [facility] Address: [address] [place], [place] [address] Performed By: #### 2 4356-8 ####[facility] LABIA [id number] [place] [address] [place] Specific gravity (U) [Rel density] 1.008 Normal 1.005-1.030 [facility] Comment on above: Order Comment: Speci men Type: URINE SPECIMENOrdering Facility: [facility] Address: [address] [place], [place] [address] Performed By: #### 2 4356-8 ####[facility] LABIA [id number] [address] [place] Urobilinogen Ql (U) Negative Normal Negative [facility] Comment on above: Order Comment: Speci men Type: URINE SPECIMENOrdering Facility: [facility] Address: [address] [place] [address] Performed By: #### 2 4356-8 ####[facility] LABCLIA [id number] [address] [place] WBC LM.HPF (Urine sed) [#/Area] 0-5 /HPF Normal 0-5 /HPF [facility] Comment on above: Order Comment: Speci men Type: URINE SPECIMENOrdering Facility: [facility] Address: [address] [place] [address] Performed By: #### 2 4356-8 ####[facility] LABCLIA [id number] [address] [place] Kelly 08-01-2021 CNPN Telephone (4CQ) MEERA MCKOY ([id number]) 1950 M Date Time Provider Department 08/01/21 GORDO NOVA 4CQ During your visit today, we recorded the following information about you: Cici Seay 08/01/2021 11:54 AM Signed Meera Mckoy called today. : 1950 Allergies: Seasonal Allergies (home) [phone] (cell) Reason for call: patient calling to inform he will be going out of town next Wednesday, 08/05 until 08/25/21 and would like to speak to provider about surgery and would like to speak to surgical garment fitter prior to leaving. Please call patient LAKEISHA at [phone]. 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] 04/07/2010 Malignant neoplasm of prostate [C61] 04/29/2010 Urge incontinence [N39.41] 10/23/2010 Urge incontinence of urine [N39.41] 10/23/2010 BPH (benign prostatic hyperplasia) [N40.0] 06/25/2011 History of prostate cancer [Z85.46] 12/25/2011 Kidney stone [N20.0] 05/26/2016 Encounter Status:Closed by GORDO NOVA II on 08/01/21 Normal [facility] Complete Blood Count with Au to Diffon 06-26-2021 Basophils (Bld) [#/Vol] 0.02 10*3/uL Normal 0.00-0.20 [facility] [place] Comment on above: Performed By: #### V ITD, CBCAD, CMP #### [facility] [address], [place] [id number] Basophils/100 WBC (Bld) 0.2 % Normal [facility] Comment on above: Performed By: #### V ITD, CBCAD, CMP #### [facility] [address], [place] [id number] Eosinophils (Bld) [#/Vol] 0.14 10*3/uL Normal 0.02-0.50 [facility] Comment on above: Performed By: #### V ITD, CBCAD, CMP #### [facility] [address], [place] [id number] Eosinophils/100 WBC (Bld) 1.5 % Normal [facility] Comment on above: Performed By: #### V ITD, CBCAD, CMP #### [facility] [address], [place] [id number] Erythrocyte distribution width (RBC) [Ratio] 12.4 % Normal 11.0-15.0 [facility] Comment on above: Performed By: #### V ITD, CBCAD, CMP #### [facility] [address], [place] [id number] Hematocrit (Bld) [Volume fraction] 42.1 % Normal 38.5-50.0 [facility] Comment on above: Performed By: #### V ITD, CBCAD, CMP #### [facility] [address], [place] [id number] Hemoglobin (Bld) [Mass/Vol] 14.8 g/dL Normal 13.0-17.1 [facility] [place] Comment on above: Performed By: #### V ITD, CBCAD, CMP #### [facility] [address], [place] [id number] Lymphocytes (Bld) [#/Vol] 1.0 10*3/uL Normal 0.9-3.9 [facility] Comment on above: Performed By: #### V ITD, CBCAD, CMP #### [facility] [address], [place] [id number] Lymphocytes/100 WBC (Bld) 10.2 % Normal [facility] Comment on above: Performed By: #### V ITD, CBCAD, CMP #### [facility] [address], [place] [id number] MCH (RBC) [Entitic mass] 33.1 pg High 27.0-33.0 [facility] Comment on above: Performed By: #### V ITD, CBCAD, CMP #### [facility] [address], [place] [id number] MCHC (RBC) [Mass/Vol] 35.2 g/dL Normal 32.0-36.0 [facility] Comment on above: Performed By: #### V ITD, CBCAD, CMP #### [facility] [address], [place] [id number] MCV (RBC) [Entitic vol] 94 fL Normal 80-100 [facility] Comment on above: Performed By: #### V ITD, CBCAD, CMP #### [facility] [address], [place] [id number] Monocytes (Bld) [#/Vol] 1.3 10*3/uL High 0.2-0.9 [facility] Comment on above: Performed By: #### V ITD, CBCAD, CMP #### [facility] [address], [place] [id number] Monocytes/100 WBC (Bld) 13.5 % Normal [facility] Comment on above: Performed By: #### V ITD, CBCAD, CMP #### [facility] [address], [place] [id number] Neutrophils (Bld) [#/Vol] 7.0 10*3/uL Normal 1.5-7.8 [facility] Comment on above: Performed By: #### V ITD, CBCAD, CMP #### [facility] [address], [place] [id number] Neutrophils/100 WBC (Bld) 74.0 % Normal [facility] Comment on above: Performed By: #### V ITD, CBCAD, CMP #### [facility] [address], [place] [id number] Platelet mean volume (Bld) [Entitic vol] 10.70 fL Normal 7.50-12.50 [facility] Comment on above: Performed By: #### V ITD, CBCAD, CMP #### [facility] [address], [place] [id number] Platelets (Bld) [#/Vol] 291 10*3/uL Normal 140-400 [facility] Comment on above: Performed By: #### V ITD, CBCAD, CMP #### [facility] [address], [place] [id number] RBC (Bld) [#/Vol] 4.47 10*6/uL Normal 4.20-5.[address] [facility] Comment on above: Performed By: #### V ITD, CBCAD, CMP #### [facility] [address], [place] [id number] RDW-SD 43.1 fL Normal 37.0-50.0 [facility] Comment on above: Performed By: #### V ITD, CBCAD, CMP #### [facility] [address], [place] [id number] WBC (Bld) [#/Vol] 9.4 10*3/uL Normal 3.8-11.0 [facility] [place] Comment on above: Performed By: #### V ITD, CBCAD, CMP #### [facility] [address], [place] [id number] Comprehensive Metabolic Pane [facility] 06-26-2021 Albumin [Mass/Vol] 4.7 g/dL Normal 3.6-5.1 [facility] [place] Comment on above: Performed By: #### V ITD, CBCAD, CMP #### [facility] [address], [place] [id number] Albumin/Globulin [Mass ratio] 2.5 {ratio} Normal 1.0-2.5 [facility] Comment on above: Performed By: #### V ITD, CBCAD, CMP #### [facility] [address], [place] [id number] ALP [Catalytic activity/Vol] 77 U/L Normal 40-129 [facility] Comment on above: Performed By: #### V ITD, CBCAD, CMP #### [facility] [address], [place] [id number] ALT [Catalytic activity/Vol] 35 U/L Normal 9-46 [facility] Comment on above: Result Comment: 05/14 Female reference range changed. Performed By: #### V ITD, CBCAD, CMP #### [facility] [address], [place] [id number] Anion gap [Moles/Vol] 18 mmol/L Normal 12-20 [facility] Comment on above: Result Comment: Effe ctive 06/19/2019 reference range changed. Performed By: #### V ITD, CBCAD, CMP #### [facility] [address], [place] [id number] AST [Catalytic activity/Vol] 31 U/L Normal 10-40 [facility] Comment on above: Performed By: #### V ITD, CBCAD, CMP #### [facility] [address], [place] [id number] Bilirubin [Mass/Vol] 0.60 mg/dL Normal 0.30-1.20 [facility] Comment on above: Performed By: #### V ITD, CBCAD, CMP #### [facility] [address], [place] [id number] BUN/CREA 21 Ratio Normal 6-22 [facility] Comment on above: Performed By: #### V ITD, CBCAD, CMP #### [facility] [address], [place] [id number] Calcium [Mass/Vol] 9.7 mg/dL Normal 8.6-10.2 [facility] Comment on above: Performed By: #### V ITD, CBCAD, CMP #### [facility] [address], [place] [id number] Chloride [Moles/Vol] 102 mmol/L Normal 98-107 [facility] Comment on above: Performed By: #### V ITD, CBCAD, CMP #### [facility] [address], [place] [id number] CO2 [Moles/Vol] 21 mmol/L Normal 20-31 [facility] Comment on above: Performed By: #### V ITD, CBCAD, CMP #### [facility] [address], [place] [id number] Creatinine [Mass/Vol] 0.9 mg/dL Normal 0.7-1.4 [facility] Comment on above: Performed By: #### V ITD, CBCAD, CMP #### [facility] [address], [place] [id number] eGFRAA 100 mL/min/1.73m2 Normal >60 [facility] Comment on above: Performed By: #### V ITD, CBCAD, CMP #### [facility] [address], [place] [id number] eGFRNAA 82 mL/min/1.73m2 Normal >60 [facility] Comment on above: Performed By: #### V ITD, CBCAD, CMP #### [facility] [address], [place] [id number] Globulin (S) [Mass/Vol] 1.9 g/dL Normal 1.9-3.7 [facility] Comment on above: Performed By: #### V ITD, CBCAD, CMP #### [facility] [address], [place] [id number] Glucose [Mass/Vol] 104 mg/dL High 65-99 [facility] Comment on above: Result Comment: For FASTING Glucose --- ADA reference ranges: Normal 65-99 mg/dl Prediabetes 100-125 Diabetes >/= 126 Performed By: #### V ITD, CBCAD, CMP #### [facility] [address], [place] [id number] Potassium [Moles/Vol] 4.5 mmol/L Normal 3.5-5.5 [facility] Comment on above: Performed By: #### V ITD, CBCAD, CMP #### [facility] [address], [place] [id number] Protein [Mass/Vol] 6.6 g/dL Normal 6.1-8.1 [facility] [place] Comment on above: Performed By: #### V ITD, CBCAD, CMP #### [facility] [address], [place] [id number] Sodium [Moles/Vol] 136 mmol/L Normal 135-146 [facility] [place] Comment on above: Performed By: #### V ITD, CBCAD, CMP #### [facility] [address], [place] [id number] Urea nitrogen [Mass/Vol] 20 mg/dL Normal 7-25 [facility] [place] Comment on above: Performed By: #### V ITD, CBCAD, CMP #### [facility] [address], [place] [id number] Hemoglobin A1Con 06-26-2021 EAG 111.15 Normal [facility] [place] Comment on above: Performed By: #### A 1C #### [facility] [address], [place] [id number] HbA1c (Bld) [Mass fraction] 5.5 % Normal 4.0-6.0 [facility] [place] Comment on above: Performed By: #### A 1C #### [facility] [address], [place] [id number] Q - INSULIN,SERUMon 06-26-19 22 INSULIN 11.0 uIU/mL Normal [facility] [place] Comment on above: Order Comment: [facility] Testing performed at: [facility], [employer] [facility], [address] [place] [address], [address] [place] [address], [phone], Foreign Policy Officer: Ottoniel Best MD [facility] Collection Date/Time: [facility] Results Received Date/Time: [facility] Reported Date/Time: Result Comment: Refe rence Range < or = 19.6 Risk: Optimal < or = 19.6 Moderate NA High >19.6 Adult cardiovascular event risk category cut points (optimal, moderate, high) are based on [employer] population data from 05/2011. This insulin assay shows strong cross-reactivity for some insulin analogs (lispro, aspart, and glargine) and much lower cross-reactivity with others (detemir, glulisine). Performed By: #### 5 61 #### [facility] [address] [place] [address] Vitamin B12on 06-26-2021 Cobalamin (Vitamin B12) [Mass/Vol] 1672 pg/mL High 211-946 [facility] [place] Comment on above: Performed By: #### B 12 #### [facility] [address], [place] [id number] Vitamin D 25-OHon 06-26-2021 VIT D 25 OH 45 ng/ml Normal >29 [facility] [place] Comment on above: Result Comment: Tiffany min D Status Deficiency <20 ng/mL Insufficiency 20-29 ng/mL Optimal 30-100 ng/mL Possible Toxicity >=150 ng/mL Performed By: #### V ITD, CBCAD, CMP #### [facility] [address], [place] [id number] CNOVon 06-23-2021 CNOV Office Visit (ORAVON ) MEERA MCKOY ([id number]) 1950 M Date Time Provider Department 06/23/21 11:45 AM GAVIN ELLIOTT During your visit today, we recorded the following information about you: Gavin Elliott DO 06/23/2021 11:46 AM Signed Meera Dayana Mckoy is here today at request of Dr. Gordo Nova specifically for consultation of my opinion in regards to the chief complaint listed below. Correspondence will be shared today via the [facility] electronic health record or through regular mail, where applicable. CHIEF COMPLAINT: Meera Mckoy is a 71 year old male who presents today for new evaluation of right hip. CONSULTATION NOTE Correspondence will be shared today via the [employer] electronic health record or through regular mail, [...] hip joint Informed Consent Consent Obtained: Verbal Bradford Protocol A moment to CARE was completed. [...] Gavin Elliott DO Referring Provider: GAVIN ELLIOTT [[id number]] Allergies As of Date: 06/23/2021 Noted Allergy Reaction SEASONAL ALLERGIES 12/21/2012 16 - Unknown Date Reviewed: 06/23/2021 Reviewed by: Gavin Elliott DO - Fully Assessed Reason for Visit: Pain [78] Primary Visit Diagnosis:Primary osteoarthritis of right hip [M16.11] Order(s):US HIP-INJECTION RT (POC) PIETRO USE ONLY [[id number]] Order #: [id number]: 1 Large Joint Arthro/Inj: R hip joint [VHF337] Order #: [id number] [] lidocaine (PF) 10 mg/mL (1 %) [...] 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] 02/11/2010 Osteoarth NOS-l/leg [[id number]] 04/07/2010 Malignant neoplasm of prostate [C61] 04/29/2010 Urge incontinence [N39.41] (more content not included)... Normal [facility] CNOVon 06-19-2021 CNOV Office Visit (LOORRM ) MEERA MCKOY ([id number]) 1950 M Date Time Provider Department 06/19/21 11:45 AM GORDO NOVA LOORRDarleen During your visit today, we recorded the following information about you: Weight Height 116.6 kg 1.803 m Gordo Nova II, MD 06/23/2021 12:59 PM Signed [facility] [address] [place], [place] [address] CLINIC NOTE Department of Orthopaedics - Katrina Nova II, M.D. NAME: MEERA MCKOY CLINIC NO.: [id number] DATE OF SERVICE: 06/19/2021 CHIEF COMPLAINT: Pain [...] large belly. X-RAY: AP weight bearing shows ttca-[id number]-[id number] on the superior weightbearing portion of the right hip with degenerative arthritis throughout the joint. IMPRESSION: Severe degenerative arthritis of the right hip. RECOMMEND: 1. Weight loss - discussed intermittent fasting. 2. Patient wants to get some relief of pain before he goes to [place] in July and then is considering having a total hip done upon his return. We have suggested a hip injection by Dr. Elliott. The patient is anxious to have this done, we will schedule. We will plan on doing his hip 3 months after the hip injection. Dictated By: Gordo Nova II, M.D. Date Dictated: 06/19/2021 Date Typed: acu 06/20/2021 JOB# [id number] Gordo Nova II, MD 06/29/2021 3:13 PM Signed Addended by: GORDO NOVA II on: 06/29/2021 03:13 PM Modules accepted: Orders Mid Level Java Developer: Transcribed Clinic Note (osiris) ID: [id number] Author: GORDO NOVA Signed by GORDO NOVA MD on 06/23/2021 at 12:59 PM Document text: [facility] [address] [place], [place] [address] CLINIC NOTE Department of Orthopaedics - Gilmer Gordo Nova II, M.D. NAME: MEERA MCKOY CLINIC NO.: [id number] DATE OF SERVICE: 06/19/2021 CHIEF COMPLAINT: Pain [...] large belly. X-RAY: AP weight bearing shows ocrd-rz-rhsn on the superior weightbearing portion of the right hip with degenerative arthritis throughout the joint. IMPRESSION: Severe degenerative arthritis of the right hip. RECOMMEND: 1. Weight loss - discussed intermittent fasting. 2. Patient wants to get some relief of pain before he goes to [place] in July and then is considering having a total hip done upon his return. We have suggested a hip injection by Dr. Elliott. The patient is anxious to have this done, we will schedule. We will plan on doing his hip 3 months after the hip injection. Dictated By: Gordo Nova II, M.D. Date Dictated: 06/19/2021 Date Typed: matt 06/20/2021 JOB# [id number] -- Refe (more content not included)... Normal [facility] XR HIP 3V PELV+ AP/LAT RTon [...] Severe right hip joint space narrowing with zxau-xu-ejno contact, subchondral sclerosis and marginal osteophytes. Moderate degenerative changes in the left hip. Sacroiliac joints and pubic symphysis are maintained. Incompletely assessed lower lumbar spine degenerative changes. Brachytherapy seeds project over the prostate. IMPRESSION: Severe right hip osteoarthritis. Commercial Installer: TAPAN Transcribe Date/Time: Jun 19 2021 11:35A Dictated by : ABI HAWTHORNE MD This examination was interpreted and the report reviewed and electronically signed by: GORDO ANDRE MD on Jun 19 2021 12:19PM EST [id number] Normal [facility] XR Pelvis and Hip - right AP and Lateral frogon 06-19-2021 IMPRESSION: Severe right hip osteoarthritis. Commercial Installer: PSCJohn Transcribe Date/Time: Jun 19 2021 11:35A [...] Severe right hip joint space narrowing with uczr-fi-bkaz contact, subchondral sclerosis and marginal osteophytes. Moderate degenerative changes in the left hip. Sacroiliac joints and pubic symphysis are maintained. Incompletely assessed lower lumbar spine degenerative changes. Brachytherapy seeds project over the prostate. DIVISION OF RADIOLOGY Provider, [facility] - 06/19/2021 * * *Final Report* [...] Severe right hip joint space narrowing with qwnc-lg-pgrl contact, subchondral sclerosis and marginal osteophytes. Moderate degenerative changes in the left hip. Sacroiliac joints and pubic symphysis are maintained. Incompletely assessed lower lumbar spine degenerative changes. Brachytherapy seeds project over the prostate. IMPRESSION IMPRESSION: Severe right hip osteoarthritis. Commercial Installer: [employer]AN Transcribe Date/Time: Jun 19 2021 11:35A Dictated by : ABI HAWTHORNE MD This examination was interpreted and the report reviewed and electronically signed by: GORDO ANDRE MD on Jun 19 2021 12:19PM EST [facility] Radiology Study observation (narrative) [facility] XR Pelvis and Hip - right AP and Lateral frogOrdered By: [facility] Provider on 06-19-2021 [facility] XR FOOT GEMINI MIN 3 VIEWSon XR [...] by: MEERA BRAND Date: 2020-12-03 16:41 Normal [facility] Vital Signs Date Time Vital Sign Value Performing Clinician Facility 04-14-2024 09:50-0400 Body height 177.8 cm Cely Marley MD Work Phone: [facility] 04-14-2024 09:50-0400 Body mass index (BMI) [Ratio] 35.44 kg/m2 Cely Marley MD Work Phone: [facility] 04-14-2024 09:50-0400 Body weight 112.04 kg Cely Marley MD Work Phone: [facility] 04-14-2024 09:50-0400 Diastolic blood pressure 76 mm[Hg] Cely Marley MD Work Phone: [facility] 04-14-2024 09:50-0400 Heart rate 78 /min Cely Marley MD Work Phone: [facility] 04-14-2024 09:50-0400 Systolic blood pressure 138 mm[Hg] Cely Marley MD Work Phone: [facility] 04-12-2024 14:34-0400 Body height 177.8 cm Yuerong Shane ARTIST'S REPRESENTATIVE Work Phone: [facility] 04-12-2024 14:34-0400 Body mass index (BMI) [Ratio] 34.72 kg/m2 Yuerong Shane ARTIST'S REPRESENTATIVE Work Phone: [facility] 04-12-2024 14:34-0400 Body weight 109.77 kg Yuerong Shane ARTIST'S REPRESENTATIVE Work Phone: [facility] 04-12-2024 14:34-0400 Diastolic blood pressure 70 mm[Hg] Yuerong Shane ARTIST'S REPRESENTATIVE Work Phone: [facility] 04-12-2024 14:34-0400 Heart rate 81 /min Yuerong Shane ARTIST'S REPRESENTATIVE Work Phone: [facility] 04-12-2024 14:34-0400 SaO2% (BldA) [Mass fraction] 94 % Yuerong Shane ARTIST'S REPRESENTATIVE Work Phone: [facility] 04-12-2024 14:34-0400 Systolic blood pressure 120 mm[Hg] Yuerong Shane ARTIST'S REPRESENTATIVE Work Phone: [facility] 02-09-2024 09:25-0400 Body height 179.07 cm DO Mona Reese Work Phone: [facility] 02-09-2024 09:25-0400 Body mass index (BMI) [Ratio] 35.9 kg/m2 DO Mona Reese Work Phone: [facility] 02-09-2024 09:25-0400 Body weight 115.21 kg DO Mona Reese Work Phone: [facility] 04-09-2023 09:56-0400 Body height 180.3 cm Cely Marley MD Work Phone: [facility] 04-09-2023 09:56-0400 Body mass index (BMI) [Ratio] 32.92 kg/m2 Cely Marley MD Work Phone: [facility] 04-09-2023 09:56-0400 Body weight 107.05 kg Cely Marley MD Work Phone: [facility] 04-09-2023 09:56-0400 Diastolic blood pressure 68 mm[Hg] Cely Marley MD Work Phone: [facility] 04-09-2023 09:56-0400 Heart rate 68 /min Cely Marley MD Work Phone: [facility] 04-09-2023 09:56-0400 Systolic blood pressure 106 mm[Hg] Cely Marley MD Work Phone: [facility] 04-10-2022 11:29-0400 Body height 180.34 cm Mona Reese Work Phone: [facility] 250 DO Work Phone: 04-10-2022 11:29-0400 Body mass index (BMI) [Ratio] 31.8 kg/m2 Mona Reese Work Phone: [facility] 250 DO Work Phone: 04-10-2022 11:29-0400 Body surface area Derived from formula 2.23 m2 Mona Reese Work Phone: [facility] 250 DO Work Phone: 04-10-2022 11:29-0400 Body weight 103.42 kg Mona Reese Work Phone: [facility] 250 DO Work Phone: 04-10-2022 11:29-0400 Diastolic blood pressure 60 mm[Hg] Mona Reese Work Phone: [facility] 250 DO Work Phone: 04-10-2022 11:29-0400 Heart rate 68 /min Mona Reese Work Phone: [facility] 250 DO Work Phone: 04-10-2022 11:29-0400 Systolic blood pressure 128 mm[Hg] Mona Reese Work Phone: [facility] 250 DO Work Phone: 09-10-2021 11:14-0400 Body height 180.3 cm Pacc 2 Work Phone: [facility] 09-10-2021 11:14-0400 Body temperature 97 [degF] Pacc 2 Work Phone: [facility] 09-10-2021 11:14-0400 Body weight 112.95 kg Pacc 2 Work Phone: [facility] 09-10-2021 11:14-0400 Diastolic blood pressure 62 mm[Hg] Pacc 2 Work Phone: [facility] 09-10-2021 11:14-0400 Heart rate 66 /min Pacc 2 Work Phone: [facility] 09-10-2021 11:14-0400 Respiratory rate 16 /min Pacc 2 Work Phone: [facility] 09-10-2021 11:14-0400 SaO2% (BldA) [Mass fraction] 100 % Pacc 2 Work Phone: [facility] 09-10-2021 11:14-0400 Systolic blood pressure 103 mm[Hg] Pacc 2 Work Phone: [facility] 09-10-2021 09:38-0400 Body height 180.3 cm Lorna Milligantyson PA-C Work Phone: [facility] 09-10-2021 09:38-0400 Body weight 110.68 kg Lorna Milligantyson PA-C Work Phone: [facility] 03-13-2021 09:45-0400 Body height 180.34 cm Meera Daugherty Other [employer] Other Encounters Encounter Date Encounter Type Care Provider Facility Start: 04-26-2024 Registered Recurring Mona Mobley jose DO Work Phone: [facility] Start: 04-26-2024 ambulatory Mona Tarynterriejanine Facility :[facility] Start: 04-25-2024 End: 04-25-2024 ambulatory Mona Centenoterriejanine DO Work Phone: [facility] Work Phone: Start: 04-25-2024 End: 04-25-2024 Discharged Recurring Mona Reese DO Work Phone: [facility] Start: 04-14-2024 End: 04-14-2024 ambulatory [facility] Start: 04-14-2024 End: 04-14-2024 Office outpatient visit 25 minutes Cely Marley MD Work Phone: [facility] Comment on above: Shortness of breath (Primary Dx); Agatston coronary artery calcium score less than 100; Essential hypertension, benign; Mixed hyperlipidemia; Mild aortic stenosis; BMI 35.0-35.9,adult; Localized edema Start: 04-12-2024 Non-patient / Non-visit Mona Taryneduardo DO Work Phone: [facility] [employer] Work Phone: Start: 04-12-2024 End: 04-12-2024 Office outpatient visit 25 minutes Yuerong Shane ARTIST'S REPRESENTATIVE Work Phone: [facility] Comment on above: IFG (impaired fastin g glucose) (Primary Dx); Agatston coronary artery calcium score less than 100; Essential hypertension (CMS/HCC); Morbid obesity (CMS/HCC) Start: 04-12-2024 End: 04-12-2024 ambulatory MONA REESE Not Available Start: 02-11-2024 End: 02-11-2024 Patient encounter procedure DO Mona Reese Work Phone: [facility] Work Phone: Start: 02-11-2024 End: 02-11-2024 ambulatory DO Mona Reese Work Phone: [facility] Work Phone: Start: 02-11-2024 Non-patient / Non-visit Mona Reese DO Work Phone: [facility] Work Phone: Start: 02-09-2024 End: 02-09-2024 ambulatory MONA REESE Not Available Start: 02-09-2024 End: 02-09-2024 ambulatory DO Mona Centenoterriejanine Work Phone: [facility] Work Phone: Start: 02-09-2024 End: 02-09-2024 Patient encounter procedure DO Mona Centenoeduardo Work Phone: [facility] [place] [facility] Work Phone: Start: 02-04-2024 End: 02-04-2024 Patient encounter procedure DO Mona Centenoterriek Work Phone: [facility] Start: 02-04-2024 End: 02-04-2024 ambulatory DO Mona Wilfredk Work Phone: [facility] Work Phone: Start: 01-19-2024 End: 01-19-2024 ambulatory MONA BLACKMANK Not Available Start: 12-07-2023 End: 12-07-2023 ambulatory MONA REESE Not Available Start: 11-04-2023 End: 11-04-2023 ambulatory BIB ROA Not Available Start: 08-11-2023 End: 08-11-2023 ambulatory MONA REESE Not Available Start: 04-09-2023 End: 04-09-2023 Office outpatient visit 15 minutes Cely Marley MD Work Phone: [facility] Comment on above: Mixed hyperlipidemia (Primary Dx); Essential hypertension, benign; Obstructive sleep apnea syndrome Start: 01-31-2023 Refill Gordo bull MD Work Phone: Orthopaedics Start: 10-09-2022 End: 10-09-2022 ambulatory DO Mona Reese Work Phone: [facility] Work Phone: Start: 10-09-2022 End: 10-09-2022 Patient encounter procedure DO Mona Reese Work Phone: [facility] Work Phone: Start: 10-09-2022 ambulatory [...] sit 15 minutes Mona Reese Work Phone: [facility] 250 DO Work Phone: Start: 04-10-2022 ambulatory [...] Start: 09-10-2021 End: 09-10-2021 Admission to establishment [facility] Work Phone: [facility] Start: 09-10-2021 End: 09-10-2021 ambulatory [facility] 2 Work Phone: Pre Anesthesia Comment on above: Pre-op evaluation (P rimary Dx); Primary osteoarthritis of right hip; Primary hypertension Start: 09-10-2021 End: 09-10-2021 Preprocedural examination done [facility] Work Phone: [facility] Work Phone: Start: 09-10-2021 End: 09-10-2021 Patient encounter procedure Lorna Ngo PA-C Work Phone: Orthopaedics Comment on above: Primary osteoarthrit is of right hip (Primary Dx) Start: 06-19-2021 End: 06-19-2021 Subsequent hospital visit by physician Sabrina Nova 1 Work Phone: Radiology Comment on above: Primary osteoarthrit is of right hip [M16.11] Start: 03-13-2021 Office outpatient vi sit 25 minutes [facility] Start: 02-03-2021 End: 02-04-2021 ambulatory JOBY [...] Comment: Speci men Type: BLOOD SPECIMENOrdering Facility: [facility] Address: [address] [place], [place] [id number] Performed By: #### T [id number] ####LINA BLOOD BANKIA [id number] [place] [address] [place] Start: 06-19-2021 Radex hip [...] for malign ant neoplasm of colon [facility] Start: 12-02-2028 Lipid panel Lipid Screening [facility] Start: 03-30-2028 Lipid panel Lipid Panel [facility] Start: 02-03-2027 Diabetes Screening Diabetes Screenwen hayes [facility] Start: 04-20-2025 End: 04-20-2025 Patient encounter procedure 04/20/2025 9:20 AM EST Office Visit [facility] [address] [phone] Cely Marley MD [address] [facility] [address], [address] [place] [id number] [facility] Start: 2025 RSV Vaccine (1 - 1-d ose 75+ series) RSV Vaccine (1 - 1-dose 75+ series) [facility] Start: 10-08-2024 DIABETES SCREEN DIABETES SCREEN [facility] Start: 08-12-2024 Medicare Annual Wellness Visit Medicare Annual Wellness Visit (AWV) [facility] Start: 08-11-2024 Medicare Annual Wellness (AWV) Medicare Annual Wellness (AWV) [facility] Start: 07-13-2024 End: 04-12-2025 CBC W Auto Differential panel - Blood CBC and differential Lab Routine IFG (impaired fasting glucose) Expected: 07/13/2024 (Approximate), Expires: 04/12/2025 [facility] Work Phone: Comment on above: Expected: 07/13/2024 (Approximate), Expires: 04/12/2025 Start: 07-13-2024 End: 10-11-2024 Comprehensive metabolic 2000 panel - Serum or Plasma Comprehensive metabolic panel Lab Routine IFG (impaired fasting glucose) Expected: 07/13/2024 (Approximate), Expires: 10/11/2024 [facility] Comment on above: Expected: 07/13/2024 (Approximate), Expires: 10/11/2024 Start: 07-13-2024 End: 04-12-2025 Hemoglobin a1c with eag Hemoglobin a1c with eag Lab Routine IFG (impaired fasting glucose) Expected: 07/13/2024 (Approximate), Expires: 04/12/2025 [facility] Comment on above: Expected: 07/13/2024 (Approximate), Expires: 04/12/2025 Start: 07-12-2024 End: 07-12-2024 Patient encounter procedure 07/12/2024 2:30 PM EST Office Visit [facility] [address] [place] [id number] Mona Reese DO [address] [place] [address] [facility] Start: 04-14-2024 End: 04-14-2024 Patient encounter procedure 04/14/2024 9:30 AM EDT Office Visit [facility] [address] [place] [id number] Cely Marley MD [address] [place] [address] [facility] Start: 02-13-2024 Covid-19 Vaccine () Covid-19 Vaccine () [facility] Start: 02-13-2024 Influenza vaccination Influenza Vacc ine (#1) [facility] Start: 02-09-2024 Plain X-ray of right hip XR hip RT min 2V(w/wo pelvis)* [facility] Start: 02-09-2024 XR Hip - right 2 Views [facility] Start: 06-14-2023 Advance Directive Discussion Advance Directive Discussion [facility] Start: 05-24-2023 Zoster Vaccines (2 o f 2) Zoster Vaccines (2 of 2) [facility] Start: 04-09-2023 FUV, Provider: Cely Marley, Status: Pen, Time: 9:40 AM FUV, Provider: Cely Marley, Status: Pen, Time: 9:40 AM [facility] 250 DO Work Phone: Start: 02-12-2023 Influenza vaccination INFLUENZA (#1) [facility] Start: 09-10-2022 BP CONTROLLED (<130/80) BP CONTROLLE D (<130/80) [facility] Start: 06-14-2022 ADVANCE DIRECTIVE DISCUSSION ADVANCE DIRECTIVE DISCUSSION [facility] Start: 06-14-2022 DEPRESSION ASSESSMENT DEPRESSION ASS ESSMENT [facility] Start: 02-12-2022 Influenza vaccination INFLUENZA (#1) [facility] Start: 09-10-2021 End: 09-10-2022 ECG COMPLETE ECG COMPLETE ECG Routine Pre-op evaluation Primary osteoarthritis of right hip Expected: 09/10/2021, Expires: 09/10/2022 [facility] Work Phone: Comment on above: Expected: 09/10/2021 , Expires: 09/10/2022 Start: 06-14-2021 ADVANCE DIRECTIVE DISCUSSION ADVANCE DIRECTIVE DISCUSSION [facility] Start: 02-20-2021 COVID-19 VACCINE (3 - Booster for Moderna series) COVID-19 VACCINE (3 - Booster for Moderna series) [facility] Start: 11-15-2020 COVID-19 VACCINE (3 - Booster for Moderna series) COVID-19 VACCINE (3 - Booster for Moderna series) [facility] Start: 11-15-2020 COVID-19 VACCINE (3 - Moderna series) COVID-19 VACCINE (3 - Moderna series) [facility] Start: 2015 PNEUMOCOCCAL: 65+ (1 - PCV) PNEUMOCOCCAL: 65+ (1 - PCV) [facility] Start: 2015 PNEUMOVAX AGE 65 AND OVER WITH 5YR LOOKBACK (#1) PNEUMOVAX AGE 65 AND OVER WITH 5YR LOOKBACK (#1) [facility] Start: 05-16-2013 DIABETES SCREEN DIABETES SCREEN [facility] Start: 2000 SHINGRIX VACCINE (1 of 2) SHINGRIX VACCINE (1 of 2) [facility] Start: 1995 COLOGUARD (FIT-DNA) COLOGUARD (FIT-D NA) [facility] Start: 1995 Colonoscopy COLONOSCOPY [facility] Start: 1995 COLORECTAL CANCER SCREENING COLORECTAL CANCER SCREENING [facility] Start: [address] COLONOGRAPHY [facility] Start: 1995 FECAL OCCULT BLOOD FECAL OCCULT BLOO D [facility] Start: 1995 Screening for malign ant neoplasm of colon [facility] Start: 1995 SIGMOIDOSCOPY SIGMOIDOSCOPY [facility] Start: 1985 LIPID SCREEN LIPID SCREEN [facility] Start: 1972 DTaP/Tdap/Td Vaccine s (1 - Tdap) DTaP/Tdap/Td Vaccines (1 - Tdap) [facility] Start: 1969 Urine microalbumin profile [facility] Start: 1968 ANNUAL PCP TEAM RIGGER CHIEF MASON DISEASE VISIT ANNUAL PCP TEAM CHRONIC DISEASE VISIT [facility] Start: 1968 Anxiety Screening Anxiety Screening [facility] Start: 1968 BP CONTROLLED (<130/80) BP CONTROLLE D (<130/80) [facility] Start: 1968 Depression Screening Depression Scre ening [facility] Start: 1968 HEPATITIS C SCREENING HEPATITIS C [facility] Start: 1968 Hepatitis C screening Hepatitis C [facility] Start: 1962 Adult depression screening assessment DEPRESSION SCREENING [facility] Start: 1956 PNEUMOCOCCAL: 65+ (1 - PCV) PNEUMOCOCCAL: 65+ (1 - PCV) [facility] Start: 1950 ABDOMINAL AORTIC ANEURYSM SCREENING ABDOMINAL AORTIC ANEURYSM SCREENING [facility] Start: 1950 Abdominal aortic aneurysm screening Abdominal Aortic Aneurysm Screening [facility] Start: 1950 Medicare Annual Wellness Visit Medicare Annual Wellness Visit (AWV) [facility] Start: 1950 Screening for malign ant neoplasm of colon [facility] End: 11-27-2022 Radiologic examination pelvis 1/2 views XR PELVIS 1V AP Radiology Routine S/P hip replacement, right 1 Occurrences starting 10/28/2021 until 11/27/2022 [facility] Work Phone: Comment on above: 1 Occurrences starti ng 10/28/2021 until 11/27/2022 [facility] Immunizations Immunization Date Immunization Notes Care Provider Falguni frye 04-04-2024 influenza, high dose seasonal, preservative-free Yuerong Shane ARTIST'S REPRESENTATIVE Work Phone: [facility] 04-04-2024 RSV, recombinant, protein subunit RSVpreF, adjuvant reconstitu, 120mcg/0.5mL, PF (Arexvy) Yuerong Shane ARTIST'S REPRESENTATIVE Work Phone: [facility] 07-21-2023 zoster vaccine recombinant Yuerong Shane ARTIST'S REPRESENTATIVE Work Phone: [facility] 03-29-2023 influenza, seasonal, injectable Cely Marley MD Work Phone: [facility] Work Phone: 03-29-2023 Influenza, Seasonal, Quadrivalent, Adjuvanted Yuerong Shane ARTIST'S REPRESENTATIVE Work Phone: [facility] 03-29-2023 zoster vaccine recombinant Yuerong Shane ARTIST'S REPRESENTATIVE Work Phone: [facility] 03-29-2023 influenza virus vaccine, unspecified formulation Xr 1 Work Phone: [facility] 03-17-2022 influenza, seasonal, injectable Mona Reese Work Phone: [facility] 250 DO Work Phone: Comment on above: Series: 03-03-2022 influenza, high dose seasonal, preservative-free Mona Reese Work Phone: [facility] 2021 influenza, high dose seasonal, preservative-free Mona Felice Mary Ann Work Phone: [facility] 09-20-2020 Moderna COVID-19 Vaccine 100 MCG/0.5ML Intramuscular Suspension Mona Reese Work Phone: [facility] 250 DO Work Phone: 08-23-2020 Moderna COVID-19 Vaccine 100 MCG/0.5ML Intramuscular Suspension Mona Reese Work Phone: [place] [address] DO Work Phone: 03-21-2020 Fluad Quadrivalent 0 .5 ML Intramuscular Prefilled Syringe Mona Reese Work Phone: [place] [address] DO Work Phone: 03-21-2020 Seasonal trivalent influenza vaccine, adjuvanted, preservative free Cely Marley MD Work Phone: [facility] Work Phone: 03-16-2020 influenza, high dose seasonal, preservative-free Mona Viveros Taryneduardo Work Phone: [facility] 250 DO Work Phone: 03-30-2019 Seasonal trivalent influenza vaccine, adjuvanted, preservative free Mona Reese Work Phone: [facility] 03-14-2019 influenza, high dose seasonal, preservative-free Cely Marley MD Work Phone: [facility] Work Phone: 03-14-2019 influenza, injectabl e, quadrivalent, preservative free Mona Reese Work Phone: [facility] 250 DO Work Phone: 06-14-2018 influenza, seasonal, injectable Mona Reese Work Phone: [facility] 250 DO Work Phone: 06-14-2018 pneumococcal polysaccharide vaccine, 23 valent Mona Reese Work Phone: [place] [address] DO Work Phone: 03-08-2018 Seasonal trivalent influenza vaccine, adjuvanted, preservative free Mona Reese Work Phone: [facility] 04-02-2017 Flu vaccine, quadrivalent, high-dose, preservative free, age 65y+ (FLUZONE) Cely Marley MD Work Phone: [facility] Work Phone: 04-02-2017 influenza, high dose seasonal, preservative-free Mona Reese Work Phone: [facility] 10-30-2016 pneumococcal polysaccharide vaccine, 23 valent Mona Reese Work Phone: [facility] 05-01-2016 influenza, high dose seasonal, preservative-free Cely Marley MD Work Phone: [facility] Work Phone: 06-03-2015 influenza, seasonal, injectable, preservative free Cely Marley MD Work Phone: [facility] Work Phone: 06-03-2015 pneumococcal conjuga te vaccine, 13 valent Mona Reese Work Phone: [facility] 06-03-2015 seasonal influenza, intradermal, preservative free Mona Reese Work Phone: [place] [address] DO Work Phone: 04-08-2014 influenza, seasonal, injectable Mona Reese Work Phone: [facility] 250 DO Work Phone: 05-01-2009 novel [id number], preservative-free, injectable Mona Reese Work Phone: [facility] 250 DO Work Phone: 04-03-1999 pneumococcal polysaccharide vaccine, 23 valent Mona Reese Work Phone: [facility] 250 DO Work Phone: Payers Date Payer Category Payer Self-pay [id number] 2021 Private Health Insurance [employer] [id number] 2020 Unknown MMO MMO MEDICARE SUPPLEMENT [id number] 2020-Present [phone] [address] [place] [address] Indemnity [id number] 2020 Unknown 2015 Medicare MEDICARE MEDICAR E A AND B [id number] 2015-Present [phone] [address] [address] [place] [address] Medicare [id number] 2015 Medicare [id number] 1959 Medicare [id number] 1959 Unknown [id number] 1950 Unknown [id number] 2.16.840.1.465500.3.579.2. 593 1950 Unknown [id number] 2.16.840.1.446904.3.579.2. 593 1950 Unknown [id number] 2.16.840.1.836385.3.579.2. 593 1950 Unknown [id number] 2.16.840.1.561570.3.579.2. 593 1950 Unknown [id number] 2.16.840.1.202203.3.579.2. 356 1950 Unknown [id number] 2.16.840.1.922009.3.579.2. 356 1950 Unknown [id number] 2.16.840.1.566792.3.579.2. 1259 1950 Unknown [id number] 2.16.840.1.410465.3.579.2. 1259 1950 Unknown [id number] 2.16.840.1.759021.3.579.2. 1259 1950 Unknown [id number] 2.16.840.1.441794.3.579.2. 1259 1950 Unknown [id number] 2.16.840.1.203406.3.579.2. 1259 1950 Unknown [id number] 2.16.840.1.976386.3.579.2. 1259 1950 Unknown [id number] 2.16.840.1.336699.3.579.2. 1244 Unknown [id number] 2.16.840.1.901016.3.579.2. 531 Unknown [id number] 2.16.840.1.637448.3.579.2. 531 Unknown [id number] 2.16.840.1.123336.3.579.2. 531 Unknown [id number] 2.16.840.1.176395.3.579.2. 531 Unknown [id number] [id number]. 531 Social History Date Type Detail Facility Start: 09-10-2021 End: 12-29-2022 Tobacco smoking status NHIS Ex-smoker [facility] Work Phone: Start: 06-14-1969 End: 06-14-1994 History of tobacco use Current smoker [facility] Work Phone: Start: 09-10-2021 End: 04-14-2024 Alcohol intake Current drinker of alcohol (finding) [facility] Start: 09-10-2021 History SDOH Alcohol Comment SOCIAL 3x/week [facility] Start: 1950 Sex Assigned At Male C [facility] Start: 05-05-2021 End: 04-14-2024 Exposure to SARS-CoV-2 (event) Not sure [facility] Start: 09-10-2021 End: 04-14-2024 Sex Assigned At [employer] [facility] [employer] Other Start: 09-10-2021 End: 04-14-2024 No illicit drug use No illicit drug use [place] [address] DO Work Phone: Comment on above: pipe smoker - quit 1 981; Start: 06-14-1969 End: 06-14-1994 History of tobacco use Cigarette Smoker [facility] Start: 09-10-2021 End: 12-29-2022 Tobacco use and exposure Smokeless tobacco non-user [facility] Start: 12-18-2021 End: 12-18-2021 Tobacco smoking status GAIS Never smoked tobacco (finding) [facility] National Score (1-100), lower number is lower risk 75 [facility] Start: 08-26-2021 Gender identity Identifies as male gender (finding) [facility] Start: 08-26-2021 Sexual orientation Heterosexual (angela centeno) [facility] Start: 04-09-2023 Tobacco use and exposure Former smokeless tobacco user [facility] Work Phone: Start: 1950 Sex Assigned At Not on file [facility] Work Phone: How often to you [...] [facility] Start: 04-26-2024 Sex Male (finding) [facility] Medical Equipment Procedure Code Equipment Code Equipment Origin al Text Equipment Identifier Dates Mdm Liner X3 Ins ert 48mm X 28mm [id number] Start: 10-07-2021 Liner Mdm 42mm E Cocr Acetabular 2 Mobility Modular Hip - [id number] Start: 10-07-2021 Head V40 Lfit 28 mm -4mm Offset Taper Cocr Femoral Primary Hip - [id number] Start: 10-07-2021 Shell Trident Ii 52mm E Tritanium Acetabular 5 Screw Hole Cluster Sterile - [id number] Start: 10-07-2021 Stem Accolade Ii 9 132d Femoral - [id number] Start: 10-07-2021 Clinical Notes 01-12-2010 to [...] discussion and plan. documented in this encounter [facility] Work Phone: 04-14-2024 Instructions Elsy Lara LPN [...] be sent through Care Everywhere.Heart Healthy Diet (Persian)documented in this encounter [facility] Work Phone: 04-12-2024 History of Present illness Narrative Images from the original note were not included. Meera Mckoy is a 74 y.o. male presents with chief complaint of 2 Month Follow Up (On the [place] Semiglutide) HPI: HPI History of Present Illness [...] Proteins serum plasma low Pure hypercholesterolemia ([facility]) Restless leg syndrome Thrombophlebitis 12/30/2022 Vitamin B12 deficiency Vitamin D deficiency SURGICAL HISTORY: Past Surgical History: Procedure Laterality Date CARPAL TUNNEL RELEASE Right 2016 CATARACT EXTRACTION Bilateral 09/2023 COLONOSCOPY W/ POLYPECTOMY HIP SURGERY Right 10/07/2021 Dr. Pack KNEE CARTILAGE SURGERY Left IL ARTHROCENTESIS ASPIR&/INJ INTERM JT/BURS W/O US Right IL ARTHROCENTESIS ASPIR&/INJ MAJOR JT/BURSA W/O US Left IL CV STRS TST XERS&/OR RX CONT ECG [...] patient care. documented in this encounter [facility] 04-12-2024 Instructions Bib Roa NP - 04/12/2024 [...] anti-ischemic aspects. documented in this encounter [facility] 02-09-2024 Evaluation note Diagnosis Onset Date Resolution Greater trochanteric bursitis of right hip acute January 8:59am Heterotopic ossification of joint acute January 8:59am History of total hip arthroplasty acute February 08 8:59am [facility] Work Phone: 1(503) 959-695110-27-2023 History of Present illness Narrative* Cely Marley [...] Obstructive sleep apnea syndrome documented in this [facility] Work Phone: 1(812) 418-608410-27-2023 Instructions* Patient Instructions* Kelli Mitchell LPN - [...] Retrieve lab One year [facility]: 1(851) 528-507808-20-2023 Miscellaneous Notes* Telephone Encounter - Gordo Nova MD - 01/31/2023 11:21 AM EDT rx sent to pharmacy on dial patient notified Gordo Nova II, MD documented in this encounterUniversity [facility]23 Instructions* Patient Instructions* Lorna Ngo PA-C - 07/06/2022 10:36 AM EST Gentle stretching daily. Take Indomethicin 75mg twice a day WITH FOOD. Chair squats and/or leg press weight exercises to improve quadriceps strength for getting out of a chair. Followup in 3 months. documented in this encounterUniversity [facility]01-23-2023 History of Present illness Narrative* Lorna Ngo [...] 06, 2022 10:06 AM documented in this encounterUniversity [facility]-2023 History of Present illness Narrative* RT Sanchez(R) [...] 06, 2022 9:37 AM documented in this encounterUniversity [facility]als [facility]08-05-2022 NoteHNO ID: [id number] Author: Gordo Nova MD Service: ? Author Type: Physician Type: Progress Notes Filed: 01/16/2022 4:48 PM Note Text: see dictated note Gordo Nova II, [facility]08-05-2022 NoteHNO ID: [id number] Author: Gordo Nova MD Service: Orthopaedic Surgery Author Type: Physician Type: Progress Notes Filed: 01/20/2022 3:07 PM Note Text: [facility] [address] [place] [address] CLINIC NOTE Department of Orthopaedics - [place] Gordo Nova II, M.D. NAME: MEERA MCKOY [facility] NO.: [id number] DATE OF SERVICE: 01/16/2022 CHIEF COMPLAINT: Recheck of right hip. Right THR, 10/07/2021 - 3 months. The patient is doing well with his hip. He has lost 40 pounds since surgery. He has no symptoms. His x-rays of the hip look excellent. Dictated By: Gordo Nova II, M.D. Date Dictated: 01/19/2022 Date Typed: [facility] 01/20/2022 JOB# [id number] City Hospital08-05-2022 NoteHNO ID: [id number] Author: RT Flavia(R) Service: ? Author Type: [...] BY: RT Flavia(R) January 16, 2022 11:03 [facility] [place]08-05-2022 History of Present illness Narrative* Ludmila James [...] 16, 2022 11:03 AM documented in this encounterUniversity [facility]07-18-2022 Miscellaneous Notes* Telephone Encounter - Gordo Nova MD - 12/29/2021 11:54 AM EDT rx sent to pharmacy on file Gordo Nova II, MD documented in this encounterUniversity Hospitals [facility]05-28-2022 NoteHNO ID: [id number] Author: Gordo Nova MD Service: ? Author Type: Physician Type: Progress Notes Filed: 11/08/2021 3:15 PM Note Text: SEE DICTATED NOTE Gordo Nova II, [facility]05-28-2022 History of Present illness Narrative* Gordo Nova MD - 11/08/2021 3:14 PM EDT SEE DICTATED NOTE Gordo Nova II, MD documented in this encounterUniversity Hospitals [facility]05-27-2022 NoteHNO ID: [id number] Author: Gordo Nova MD Service: Orthopaedic Surgery Author Type: Physician Type: Progress Notes Filed: 11/12/2021 4:04 PM Note Text: [facility] [address] [place], [place] [address] CLINIC NOTE Department of Orthopaedics - Katrina Nova II, M.D. NAME: MEERA MCKOY [facility] NO.: [id number] DATE OF SERVICE: 11/07/2021 CHIEF COMPLAINT: Recheck of right hip. Right THR, 10/07/2021 - 4 and a half weeks. Incision area has healed very nicely and the area of rotation from the dressing tape has been completely healed. Okay to gradually resume full activities. Dictated By: Gordo Nova II, M.D. Date Dictated: 11/07/2021 Date Typed: [facility] 11/07/2021 JOB# [id number] City Hospital05-18-2022 NoteHNO ID: [id number] Author: Lorna Ngo PA-C Service: ? Author Type: Physician Buffet Server Type: Progress Notes Filed: 10/29/2021 5:36 PM [...] him that this does not look like infection.[facility]05-18-2022 NoteHNO ID: [id number] Author: Lorna Ngo PA-C Service: ? Author Type: Physician Buffet Server Type: Progress Notes Filed: 10/29/2021 2:27 PM [...] Lorna Ngo PA-C October 29, 2021 12:59 [facility]05-18-2022 NoteHNO ID: [id number] Author: RT Ming(R) Service: ? Author Type: [...] BY: RT Ming(R) October 29, 2021 12:28 [facility]05-18-2022 History of Present illness Narrative* Lorna Ngo [...] 29, 2021 12:59 PM documented in this encounterUniversity Hospitals [facility]05-18-2022 Instructions* Patient Instructions* Lorna Ngo PA-C - [...] Aspirin twice a day. documented in this encounterUniversity Hospitals [facility]age [facility] Center04-27-2022 NoteHNO ID: [id number] Author: Alayna Kaiser ([employer]) Service: ? Author Type: ? Type: Plan [...] or your Primary Care Provider. Alayna Kaiser (Brewery P[employer]) PAGER: keith October 08, 2021 4:31 [facility] [id number] NoteHNO ID: [id number] Author: Mary Kulkarni RN Service: Care Management Author Type: Registered Nurse Type: Care Mgt Initial Assessment Filed: 10/08/2021 9:53 AM Note Text: CARE MANAGEMENT: ASSESSMENT AND DISCHARGE PLAN SERVICE DATE: October 08, 2021 SERVICE TIME: 9:52 AM PRIMARY CARE PHYSICIAN: Mona Reese DO, ADMISSION STATUS: Extended Recovery MEDICAL: MEDICARE A AND B Patient/Hris Coordinator Stated Goals: To return home to life as it was Health Insurance: Medicare Health Issues Impacting Discharge Plan: Newly diagnosed Newly Diagnosed: hip replacement Advance Directive: Current Advance Directive: Health Care Power of Clipper Automatic;Living Will In Chart: Yes Up To Date [...] Walker Has the Patient Been in a Intermediate Facility in the Past 30 days?: No SOCIAL: Living Arrangements: Home Lives With: Spouse Financial Resources: Retired Primary Contact: Extended Emergency Contact Information Primary Emergency Contact: Raisa Mckoy Address: [address] [place] [address] [address] Relation: Spouse Supportive Patient Contact:: Yes [...] Psychosocial Needs: None FREEDOM OF CHOICE EXPLAINED: [place] of Choice Given: No Reason Not Given: No placements necessary POTENTIAL TRANSITION PLANS Outpatient Therapy Patient from home with spouse. Has an outpatient PT appt at 9:45 AM at [facility] outpatient PT. Spouse will transport home. SIGNATURE: Mary Kulkarni RN PATIENT NAME: Meera Mckoy DATE: October 08, 2021 TIME: 9:52 AM PAGER/CONTACT #: [phone] NoteHNO ID: [id number] Author: Arnulfo Bianchi MD Service: Anesthesiology Author [...] surgical anesthetic Staffing Anesthesiologist: Arnulfo Bianchi MD DIRECTOR STUDENT UNION: Mary Andres APRN.DIRECTOR STUDENT UNION Performed by: anesthesiologist Preparation Sterility Preparation: hand [...] October 07, 2021 TIME: 9:30 AM CSN: [id number] NoteHNO ID: [id number] Author: Lorna Ngo PA-C Service: ? 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 Please enter through the entrance closest to [...] Procedures: - YOU MUST HAVE A RESPONSIBLE RETAIL SALESWORKER TAKE YOU HOME. A MANAGER CONTRACT OR DOORKEEPER CANNOT BE MADE A RESPONSIBLE RETAIL SALESWORKER. - We recommend that a responsible person stays with you overnight to take care of you. - You cannot stay in a hotel alone after outpatient surgery. You will not be permitted to have yoursurgery, if you do not have someone to take care of you. If you already have an Advance Directive, please fax a copy to [phone] or email to for it to be [...] day. Maira Doss APRN.CNP documented in this encounterUniversity Hospitals [facility] Center03-30-2022 History and physical note * Maira Doss [...] fevers. 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 No neurological symptoms or problems. Respiratory: No history of current cough or dyspnea, or pneumonia in the past 6 weeks. No history of respiratory/pulmonary symptoms or problems. + KATTY wears CPAP Cardiovascular: Negative for Recent [place], Arrhythmia, Chest Pain, DVT/PE + HTN on [...] 2021 TIME: 11:00 AM documented in this encounterUniversity Hospitals [facility] Center03-30-2022 Instructions* Patient Instructions* Lorna Ngo PA-C - [...] you out after surgery. 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 eMera Mckoy has no additional complaints. FUNCTIONAL STATUS: [...] 2021 TIME: 9:34 AM documented in this encounterUniversity Hospitals Portage [facility] Center01-10-2022 NoteHNO ID: [id number] Author: Gavin Elliott, DO Service: ? Author Type: Physician Type: Progress Notes Filed: 06/23/2021 11:46 AM Note Text: Meera Mckoy is here today at request of Dr. Gordo Nova specifically for consultation of my opinion in regards to the chief complaint listed below. Correspondence will be shared today via the [facility] electronic health record or through regular mail, where applicable. CHIEF COMPLAINT: Meera Mckoy is a 71 year old male who presents today for new evaluation of right hip. CONSULTATION NOTE Correspondence will be shared today via the [employer] electronic health record or through regular mail, [...] hip joint Informed Consent Consent Obtained: Verbal Bradford Protocol A moment to CARE was completed. [...] Care Visit completed when applicable Gavin Elliott, [facility]01-06-2022 NoteHNO ID: [id number] Author: Gordo Nova MD Service: Orthopaedic Surgery Author Type: Physician Type: Progress Notes Filed: 06/23/2021 12:59 PM Note Text: [facility] [address] [place], [place] [address] CLINIC NOTE Department of Orthopaedics - Katrina Nova II, M.D. NAME: MEERA MCKOY CLINIC NO.: [id number] DATE OF SERVICE: 06/19/2021 CHIEF COMPLAINT: Pain [...] large belly. X-RAY: AP weight bearing shows [id number] on the superior weightbearing portion of the right hip with degenerative arthritis throughout the joint. IMPRESSION: Severe degenerative arthritis of the right hip. RECOMMEND: 1. Weight loss - discussed intermittent fasting. 2. Patient wants to get some relief of pain before he goes to [place] in July and then is considering having a total hip done upon his return. We have suggested a hip injection by Dr. Elliott. The patient is anxious to have this done, we will schedule. We will plan on doing his hip 3 months after the hip injection. Dictated By: Gordo Nova II, M.D. Date Dictated: 06/19/2021 Date Typed: saadia 06/20/2021 JOB# [id number] Defiance [facility] Hospital01-06-2022 NoteHNO ID: [id number] Author: RT Eze(R) Service: ? Author Type: [...] Rayna Chapin RT(R) June 19, 2021 11:31 [facility] [place]09-30-2021 Evaluation note* Encounter Date Diagnosis Assessment Notes [...] can reduce the intensity of perceived pain [facility] Other 08-01-2010 History general Narrative - Reported* Type Description Date Medical History hypertension Medical History KATTY Medical History cervical arthritis Medical History glaucoma Medical History prostate cancer Surgical History right TKA 01/2010 Surgical History left TKA 2009 Surgical History bilateral carpal tunnel Surgical History knee arthroscopies Surgical History left shoulder scope with rotato r cuff repair Hospitalization History see surgeries [facility] Other Evaluation note* Diagnosis Primary osteoarthritis of right hip- Primary Primary localized osteoarthrosis, pelvic region and thigh Primary osteoarthritis of right hip Primary localized osteoarthrosis, pelvic region and thigh documented in this encounter [facility] note* Diagnosis Pre-op evaluation- Primary Preoperative examination, unspecified Primary osteoarthritis of right hip Primary localized osteoarthrosis, pelvic region and thigh Primary hypertension Unspecified essential hypertension Primary osteoarthritis of right hip Primary localized osteoarthrosis, pelvic region and thigh documented [facility] this [facility] Diagnosis S/P hip replacement, right- Primary documented in this encounter [facility] note* Diagnosis S/P hip replacement, right- Primary documented in this encounter [facility] note* Diagnosis S/P hip replacement, right- Primary documented in this encounter [facility] note* Diagnosis S/P hip replacement, right- Primary Heterotopic ossification of joint documented in this encounter [facility] noteNo assessment information availableMercy Health [facility] Work Phone: Evaluation note* Diagnosis S/P hip replacement, right documented in this encounter [facility] note* Diagnosis Mixed hyperlipidemia- Primary Essential hypertension, benign Obstructive sleep apnea syndrome Obstructive sleep apnea (adult) (pediatric) documented in this encounter [facility] Work Phone: Evaluation note* Diagnosis Onset Date Resolution Status Greater trochanteric bursitis of right hip acute Heterotopic ossification of joint acute History of total hip arthroplasty [facility] Work Phone: Evaluation note* Diagnosis Pre-op evaluation- Primary Preoperative examination, unspecified Primary osteoarthritis of right hip Primary localized osteoarthrosis, pelvic region and thigh Primary hypertension Unspecified essential hypertension S/P hip replacement, right documented in this encounter [facility] note* Diagnosis Pre-op evaluation- Primary Preoperative examination, unspecified Primary osteoarthritis of right hip Primary localized osteoarthrosis, pelvic region and thigh Primary hypertension Unspecified essential hypertension S/P hip replacement, right documented in this encounter [facility] note* Diagnosis Pre-op evaluation- Primary Preoperative examination, unspecified Primary osteoarthritis of right hip Primary localized osteoarthrosis, pelvic region and thigh Primary hypertension Unspecified essential hypertension S/P hip replacement, right [facility] Diagnosis Primary osteoarthritis of right hip Primary localized osteoarthrosis, pelvic region and thigh documented [facility] this encounter [facility]* Diagnosis IFG (impaired fasting glucose)- Primary Agatston coronary artery calcium score less than 100 Essential hypertension (CMS/HCC) Unspecified essential hypertension Morbid obesity (CMS/HCC) Morbid obesity [facility] Diagnosis Shortness of breath- Primary Agatston coronary artery calcium score less than 100 Essential hypertension, benign Mixed hyperlipidemia Mild aortic stenosis Aortic valve disorders BMI 35.0-35.9,adult Localized edema Edema documented in this encounter [facility] Work Phone: History of Present illness Narrative* [...] of change in cardiac status or symptoms -[facility] [address] DO Work Phone: Reason for referral (narrative)* Outpatient Procedure (Routine) - Authorized Specialty Diagnoses / Procedures Referred By Contac t Referred To [facility] Diagnoses Pre-op evaluation Primary osteoarthritis of right hip Procedures ECG COMPLETE ECG ROUTINE ECG W/LEAST 12 LDS W/I&R Maira Doss APRN.CNP [address] [place] [address] [facility] [place] [address] [place] [address] Referral ID Status Reason Start Date Expiration Date Visits Requested Visits Authorized [id number] Authorized Auto-Generat ed Referral 09/10/2021 09/10/2022 1 1 [facility] for referral (narrative)* Diagnostic Procedure Only (Routine) - Pending Review Specialty Diagnoses / Procedures Referred By Contac t Referred To Contact XR IMAGING Diagnoses S/P hip replacement, right Procedures XR PELVIS 1V AP RADIOLOGIC EXAMINATION PELVIS 1/2 VIEWS Lorna Ngo PA-C [address] [place] [address] Xr Imaging Referral ID Status Reason Start Date Expiration Date Visits Requested Visits Authorized [id number] Pending Review Auto-Generat ed Referral 10/28/2021 11/27/2022 1 1 * Diagnostic Procedure Only (Routine) - Closed Specialty Diagnoses / Procedures Referred By Contac t Referred To Contact XR IMAGING Diagnoses S/P hip replacement, right Procedures XR PELVIS 1V AP RADIOLOGIC EXAMINATION PELVIS 1/2 VIEWS Lorna Ngo PA-C [address] [place] [address] Xr Imaging Referral ID Status Reason Start Date Expiration Date V isits Requested Visits Authorized [id number] Closed Auto-Generate d Referral 10/26/2021 11/25/2022 1 1 [facility] for referral (narrative)* Consultation (Routine) - Authorized Specialty Diagnoses / Procedures Referred By Contac t Referred To Contact Cardiology Diagnoses Mixed hyperlipidemia Essential hypertension, benign Procedures Follow Up In Cardiology Cely Marley MD [address] [facility] [address], [address] [address] Cely Marley MD [address] [facility] 2, [facility] [[email or web address] [address] [place] [address] Referral ID Status Reason Start Date Expiration Date V isits Requested Visits Authorized [id number] Authorized 04/09/2023 04/08/2024 1 1 T [facility] Work Phone: [employer] for referral (narrative)* Diagnostic Procedure Only (Routine) - Closed Specialty Diagnoses / Procedures Referred By Contac t Referred To Contact XR IMAGING Diagnoses S/P hip replacement, right Procedures XR PELVIS 1V AP RADIOLOGIC EXAMINATION PELVIS 1/2 VIEWS Lorna Ngo PA-C [address] [place] [address] [place] [address] Referral ID Status Reason Start Date Expiration Date V isits Requested Visits Authorized [id number] Closed Auto-Generate d Referral 05/20/2022 06/19/2023 1 1 [facility] for referral (narrative)* Diagnostic Procedure Only (Routine) - Closed Specialty Diagnoses / Procedures Referred By Contac t Referred To Contact XR IMAGING Diagnoses S/P hip replacement, right Procedures XR PELVIS 1V AP RADIOLOGIC EXAMINATION PELVIS 1/2 VIEWS Gordo Nova MD [address] [place] [address] [place] [address] Referral ID Status Reason Start Date Expiration Date V isits Requested Visits Authorized [id number] Closed Auto-Generate d Referral 01/11/2022 02/10/2023 1 1 [facility] for referral (narrative)* Diagnostic Procedure Only (Routine) - Closed Specialty Diagnoses / Procedures Referred By Contac t Referred To Contact XR IMAGING Diagnoses S/P hip replacement, right Procedures XR PELVIS 1V AP RADIOLOGIC EXAMINATION PELVIS 1/2 VIEWS Lorna Ngo PA-C [address] [place] [address] [place] [address] Referral ID Status Reason Start Date Expiration Date V isits Requested Visits Authorized [id number] Closed Auto-Generate d Referral 10/26/2021 11/25/2022 1 1 [facility] for referral (narrative)* Diagnostic Procedure Only (Routine) - Closed Specialty Diagnoses / Procedures Referred By Contac t Referred To Contact XR IMAGING Diagnoses Primary osteoarthritis of right hip Procedures XR HIP GENERAL 3V PELV/AP/LAT RIGHT RADEX HIP UNILATERAL WITH PELVIS 2-3 VIEWS Gordo Nova MD [address] [place] [address] [place] [address] Referral ID Status Reason Start Date Expiration Date V isits Requested Visits Authorized [id number] Closed Auto-Generate d Referral 06/18/2021 07/18/2022 1 1 [facility] for visit Narrative* Diagnostic Procedure Only (Routine) - Closed Specialty Diagnoses / Procedures Referred By Contac t Referred To Contact XR IMAGING Diagnoses S/P hip replacement, right Procedures XR PELVIS 1V AP RADIOLOGIC EXAMINATION PELVIS 1/2 VIEWS Lorna Ngo PA-C [address] [place] [address] [place] [address] Referral ID Status Reason Start Date Expiration Date V isits Requested Visits Authorized [id number] Closed Auto-Generate d Referral 05/20/2022 06/19/2023 1 1 [facility] for visit Narrative* Diagnostic Procedure Only (Routine) - Closed Specialty Diagnoses / Procedures Referred By Contac t Referred To Contact XR IMAGING Diagnoses S/P hip replacement, right Procedures XR PELVIS 1V AP RADIOLOGIC EXAMINATION PELVIS 1/2 VIEWS Lorna Ngo PA-C [address] [place] [address] [place] [address] Referral ID Status Reason Start Date Expiration Date V isits Requested Visits Authorized [id number] Closed Auto-Generate d Referral 10/26/2021 11/25/2022 1 [facility] Diagnostic Procedure Only (Routine) - Closed Specialty Diagnoses / Procedures Referred By Contac t Referred To Contact XR IMAGING Diagnoses Primary osteoarthritis of right hip Procedures XR HIP GENERAL 3V PELV/AP/LAT RIGHT RADEX HIP UNILATERAL WITH PELVIS 2-3 VIEWS Gordo Nova MD [address] [place] [address] [place] [address] Referral ID Status Reason Start Date Expiration Date V isits Requested Visits Authorized [id number] Closed Auto-Generate d Referral 06/18/2021 07/18/2022 1 1 [facility] Summary Purpose Family History No Family History [...] FoundDocuments on File Type Date Recorded Patient Hris Coordinator Expl anation Advance Directive(s) 09/09/2021 5:40 PM Advance Directive(s) 02/26/2010 3:22 PM Documents on File Type Date Recorded Patient Hris Coordinator Expl anation Advance Directive(s) 09/09/2021 5:40 PM Advance Directive(s) 02/26/2010 3:22 PM Documents on File Type Date Recorded Patient Hris Coordinator Expl anation Advance Directive(s) 10/07/2021 7:42 AM sc anned in on 10/07/21 Advance Directive(s) 10/07/2021 7:39 AM Advance Directive(s) 09/09/2021 5:40 PM Advance Directive(s) 02/26/2010 3:22 PM Documents on File Type Date Recorded Patient Hris Coordinator Expl anation Advance Directive(s) 10/07/2021 7:42 AM sc anned in on 10/07/21 Advance Directive(s) 10/07/2021 7:39 AM Advance Directive(s) 09/09/2021 5:40 PM Advance Directive(s) 02/26/2010 3:22 PM Documents on File Type Date Recorded Patient Hris Coordinator Expl anation Advance Directive(s) 10/07/2021 7:39 AM Advance Directive(s) 02/26/2010 3:22 PM Advance Directive Response Recorded Date/ Time Advance Directives Yes February 05, 2017 1:13pm Documents on File Type Date Recorded Patient Hris Coordinator Expl anation Advance Directive(s) 10/07/2021 7:39 [...] DATE CREATED AUTHOR AUTHOR'S ORGANIZ ATION 10/01/2021 [facility] dical Specialist DATE CREATED AUTHOR AUTHOR'S ORGANIZ ATION 10/09/2021 [facility] DATE CREATED AUTHOR AUTHOR'S ORGANIZ ATION 01/21/2022 [facility] DATE CREATED AUTHOR AUTHOR'S ORGANIZ ATION 04/11/2022 [employer] DATE CREATED AUTHOR AUTHOR'S ORGANIZ ATION 10/15/2022 [facility] ical Center DATE CREATED AUTHOR AUTHOR'S ORGANIZ ATION 04/14/2024 [facility] dical Specialists EPIC DATE CREATED AUTHOR AUTHOR'S ORGANIZ ATION 04/16/2024 [facility] tals Ambulatory DATE CREATED AUTHOR AUTHOR'S ORGANIZ ATION 04/29/2024 [facility] ysician Group Source Comments (unrecognize d section and content) In the event this informatio n is protected by the Federal Confidentiality of Alcohol and Drug Abuse Patient Records regulations: The Federal rules restrict any use of the information to criminally investigate or prosecute any alcohol or drug abuse patient.[facility] the event this information is protected by the Federal Confidentiality of Alcohol and Drug Abuse Patient Records regulations: The Federal rules restrict any use of the information to criminally investigate or prosecute any alcohol or drug abuse patient.[facility] the event this information is protected by the Federal Confidentiality of Alcohol and Drug Abuse Patient Records regulations: The Federal rules restrict any use of the information to criminally investigate or prosecute any alcohol or drug abuse patient.[facility] the event this information is protected by the Federal Confidentiality of Alcohol and Drug Abuse Patient Records regulations: The Federal rules restrict any use of the information to criminally investigate or prosecute any alcohol or drug abuse patient.[facility] the event this information is protected by the Federal Confidentiality of Alcohol and Drug Abuse Patient Records regulations: The Federal rules restrict any use of the information to criminally investigate or prosecute any alcohol or drug abuse patient.[facility] the event this information is protected by the Federal Confidentiality of Alcohol and Drug Abuse Patient Records regulations: The Federal rules restrict any use of the information to criminally investigate or prosecute any alcohol or drug abuse patient.[facility] the event this information is protected by the Federal Confidentiality of Alcohol and Drug Abuse Patient Records regulations: The Federal rules restrict any use of the information to criminally investigate or prosecute any alcohol or drug abuse patient.[facility] the event this information is protected by the Federal Confidentiality of Alcohol and Drug Abuse Patient Records regulations: The Federal rules restrict any use of the information to criminally investigate or prosecute any alcohol or drug abuse patient.[facility] the event this information is protected by the Federal Confidentiality of Alcohol and Drug Abuse Patient Records regulations: The Federal rules restrict any use of the information to criminally investigate or prosecute any alcohol or drug abuse patient.[facility] Center[facility] the event this information is protected by the Federal Confidentiality of Alcohol and Drug Abuse Patient Records regulations: The Federal rules restrict any use of the information to criminally investigate or prosecute any alcohol or drug abuse patient.[facility] Center[facility] the event this information is protected by the Federal Confidentiality of Alcohol and Drug Abuse Patient Records regulations: The Federal rules restrict any use of the information to criminally investigate or prosecute any alcohol or drug abuse patient.[facility] Center[facility] the event this information is protected by the Federal Confidentiality of Alcohol and Drug Abuse Patient Records regulations: The Federal rules restrict any use of the information to criminally investigate or prosecute any alcohol or drug abuse patient.[facility] Care Teams (unrecognized sec tion and content) Cpc Relationship Specialty Start Date End Date Mona Reese, DO [address] [place] [address] PCP - General 01/09/10 Cpc Relationship Specialty Start Date End Date Mona Reese DO [address] [place] [address] PCP - General 01/09/10 Cpc Relationship Specialty Start Date End Date Mona Reese DO [address] [place] [address] PCP - General 01/09/10 Cpc Relationship Specialty Start Date End Date Mona Reese DO [address] [place] [address] PCP - General 01/09/10 Cpc Relationship Specialty Start Date End Date Mona Reese DO [address] [place] [address] PCP - General 01/09/10 Cpc Relationship Specialty Start Date End Date Mona Reese DO [address] [place] [address] PCP - General 01/09/10 Team Status: Active Member Role Status Dates Mona Reese DO Primary Care Provider Active Team Status: Inactive Member Role Status Dates Mona Reese DO Primary Care Provider, Gini reynoso Active Cpc Relationship Specialty Start Date End Date Mary Ann Mona Streeter DO [address] [place] [address] PCP - General 01/09/10 Cpc Relationship Specialty Start Date End Date WilfredMona mehta DO [address] [facility] [address] [place] [address] PCP - General 06/14/99 Team Status: Inactive [...] February 11, 2024 End: February 11, 2024 Cpc Relationship Specialty Start Date End Date Mona Reese DO [address] [place] [address] PCP - General 01/09/10 Cpc Relationship Specialty Start Date End Date Mona Reese DO [address] [place] [address] PCP - General 01/09/10 Cpc Relationship Specialty Start Date End Date Mona Reese DO [address] [place] [address] PCP - General 01/09/10 Cpc Relationship Specialty Start Date End Date Mona Reese DO [address] [place] [address] PCP - ACO Reach 11/05/22 Mona Reese DO [address] [place] [address] PCP - General Internal Medicine 12/28/22 Cpc Relationship Specialty Start Date End Date Mona Reese DO [address] [place] [address] PCP - General Internal Medicine 04/14/24 Cely Marley MD [address] [facility] [address] [place] [address] Consulting Physician Cardiology 04/14/24 Team [...] EXAMINATION PELVIS 1/2 VIEWS Gordo Nova MD [address] [place] [address] [place] [address] Referral ID Status Reason Start Date Expiration Date V isits Requested Visits Authorized [id number] Closed Auto-Generate d Referral 01/11/2022 02/10/2023 1 1 Reason Comments 2 Month Follow [place] iglutide Reason Comments Follow-up 1 yr Specialty Diagnoses / Procedures Referred By Contac t Referred To Contact Cardiology Diagnoses Mixed hyperlipidemia Essential hypertension, benign Procedures Follow Up In Cardiology Cely Marley MD [address] [facility] [address] [place] [address] Phone: tel: fax: Cely Marley MD [address] [facility] [address], [facility] [[email or web address] [address] [place] [address] Phone: tel: fax: Referral ID Status Reason Start Date Expiration Date V isits Requested Visits Authorized [id number] Authorized 04/09/2023 04/08/2024 1 1 Goals (unrecognized [...] BE BASED ON THE PRIMARY CLINICAL RECORDS. [employer] provides no warranty or guarantee of the accuracy or completeness of information in this document.
== END 2024-05-25 10:05 | disposition home or self-care (01) ==
LOC: VC 09:14
PROVIDERS: PCP Radiology Diagnostic Radiology; Visit Provider Radiology Diagnostic Radiology
DX: I83.813 Varicose veins of bilateral lower extremities with pain (principal)
CPT/HCPCS: 36478

== ENCOUNTER 2024-05-31 09:00 | Outpatient (OUT) | payer MEDICARE, OTHER, SELFPAY ==
--- NOTE | 2024-05-31 09:00 | VEIN_ITS ---
Patient Name: MEERA WARNER MR#: [id number] : 1950 Exam Date: 05/31/2024 Ordering Doctor: DR MEERA BRAND M.D. RADIOLOGY REPORT PROCEDURE: VC EXT VENOUS RT LMTD COMPARISON: None. INDICATIONS: I80.01 - Phlebitis and thrombophlebitis of superficial ve... TECHNIQUE: Lower extremity block scale and Duplex Doppler evaluation of the deep venous system from the inguinal ligament through the calf veins. FINDINGS: REGION: Right lower extremity. THROMBI: Negative for DVT. Heat induced thrombus visualized 2.1cm from the SFJ. The heat induce thrombus extends from groin to mid calf. COMPRESSIBILITY: Non-compressible segments corresponding to thrombus FLOW: Areas of no flow corresponding to thrombus OTHER: CONCLUSION: 1. Successful post ablation occlusion of right great saphenous vein. Dictated by: Godwin Gray M.D. on 05/31/2024 at 10:08 Approved by: Godwin Gray M.D. on 05/31/2024 at 10:08
--- NOTE | 2024-05-31 09:00 | VEIN_ITS ---
Patient Name: MEERA WARNER MR#: [id number] : 1950 Exam Date: 05/31/2024 Ordering Doctor: DR MEERA BRAND M.D. RADIOLOGY REPORT PROCEDURE: [facility] - OFFICE VISIT FOLLOW UP COMPARISON: [facility], 05/01/2024. PROGRESS NOTES: The patient reports improvement in leg symptoms. There has been interval reduction in varicosities. The patient has followed our recommendations to walk 20-30 minutes once or twice per day since the procedure. Physical exam demonstrates decrease in varicosities of the leg. Persistent varicosities are identified along the legs bilaterally. Review of the ultrasound performed the same day demonstrates occlusive thrombus extending throughout the treated vein(s), see separate report, consistent with a successful ablation. No thrombus extending into or beyond the saphenofemoral junction. The patient expressed a desire to proceed with treatment of remaining incompetent varicosities. The patient was informed that treatment was a process and would require several procedures/sessions. [facility]: 1. Successful ablation of the right great saphenous vein(s). 2. Persistent varicose veins and lower extremity symptoms. PLAN: 1. Endovenous laser ablation of left great saphenous vein. Nurse notes, history and physical were reviewed and confirmed, see attached forms. The nurse was present throughout the physical exam and consultation Dictated by: Godwin Gray M.D. on 05/31/2024 at 10:08 Approved by: Godwin Gray M.D. on 05/31/2024 at 10:09
--- NOTE | 2024-05-31 09:19 | V.VEINS.HP ---
Varicose Veins Patient in this day for follow up ultrasound post EVLT of right GSV Godwin Bazzi MD personally performed the services described in this documentation, as scribed by Meme Suresh RVT, RDMS in my presence and it is both accurate and complete. Meme Bazzi RVT, RDMS, am scribing for, and in the presence of, Dr. Godwin Gray and in the presence of the patient. . thigh: bilateral (left leg > right leg), knee: bilateral, calf: bilateral, ankle: bilateral and gonzalez: bilateral aching, burning, cramping and dull 3 3 months Worsened in recent months: Yes standing elevating extremities Reports muscle spasms of leg, fatigue, heaviness, limb pain and leg edema History of lower extremity trauma: No Superficial thrombophlebitis: No Family history of varicose veins: no Has patient had previous lower extremity venous surgery: No Patient has previously received the following treatment(s) for lower extremity varicose veins: Reports none Does patient have a history of : not applicable Has patient had lower extremity venous scan with relux testing: No Support hose used: No Problems walking or doing physical activity: Yes How does it affect you: unable to exercise due to pain and weakness Do you walk much: Yes Review of Systems ROS Narrative Godwin Bazzi MD personally performed the services described in this documentation, as scribed by Meme Suresh RVT, RDMS in my presence and it is both accurate and complete. Meme Bazzi RVT, RDMS, am scribing for, and in the presence of, Dr. Godwin Gray and in the presence of the patient. Status of ROS 10 or more systems reviewed and unremarkable except as noted in history and below Cardiovascular Reports: edema Integumentary/Breast Reports: skin pain, skin swelling and changes in skin color Neurological Reports: numbness in extremities and weakness in extremities Hematologic/Lymphatic Reports: easy bruising and easy bleeding [facility] Medical History (Updated 05/25/24 @ 10:04 by Bay Reaves) Phlebitis of superficial vein of right lower extremity ?I80.01 - Phlebitis and thrombophlebitis of superficial vessels of right lower extremity (ICD-10) Prostate CA ?C61 - Malignant neoplasm of prostate (ICD-10) Knee arthropathy ?M17.10 - Unilateral primary osteoarthritis, unspecified knee (ICD-10) 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 ?M19.112 - Post-traumatic osteoarthritis, left shoulder (ICD-10) ?S46.002S - Unspecified injury of muscle(s) and tendon(s) of the rotator cuff of left shoulder, sequela (ICD-10) Kidney stones ?N20.0 - Calculus of kidney (ICD-10) Osteoarthritis of hip ?M16.9 - Osteoarthritis of hip, unspecified (ICD-10) Varicose veins of bilateral lower extremities with pain ?I83.813 - Varicose veins of bilateral lower extremities with pain (ICD-10) Hypertension ?I10 - Essential (primary) hypertension (ICD-10) Obesities, morbid ?E66.01 - Morbid (severe) obesity due to excess calories (ICD-10) Obstructive sleep apnea ?G47.33 - Obstructive sleep apnea (adult) (pediatric) (ICD-10) Angina pectoris ?I20.9 - Angina pectoris, unspecified (ICD-10) Coronary artery disease ?I25.10 - Atherosclerotic heart disease of [place] coronary artery without angina pectoris (ICD-10) Nonrheumatic aortic (valve) stenosis ?I35.0 - Nonrheumatic aortic (valve) stenosis (ICD-10) Surgical History (Updated 05/25/24 @ 10:15 by Bay Reaves) Status post laser ablation of incompetent vein ?Z98.890 - Other specified postprocedural states (ICD-10) History of carpal tunnel surgery ?Z98.890 - Other specified postprocedural states (ICD-10) History of right hip replacement ?Z96.641 - Presence of right artificial hip joint (ICD-10) History of bilateral knee replacement ?Z96.653 - Presence of artificial knee joint, bilateral (ICD-10) Family History (Updated 01/27/24 @ 09:38 by Bay Reaves) Other Aneurysm Family history of hypertension Family history of stroke Social History (Updated 01/27/24 @ 09:42 by Bay Reaves) Within the past year, how often did you have a drink containing alcohol: 2-3 times a week Smoking status: Never smoker Non-prescribed substance use: denies use Meds Home Medications and Allergies Home Medications ?Medication ?Instructions ?Recorded ?Confirmed ?Type amlodipine 5 mg tablet (Norvasc) 5 mg PO DAILY 01/26/24 01/26/24 History aspirin 81 mg capsule 81 mg PO DAILY 01/26/24 01/26/24 History atorvastatin 40 mg tablet 40 mg PO DAILY 01/26/24 01/26/24 History cholecalciferol (vitamin D3) 25 25 mcg PO DAILY 01/26/24 01/26/24 History mcg (1,000 unit) tablet diphenhydramine HCl 25 mg capsule 25 mg PO Q8H PRN allergic reaction 01/26/24 01/26/24 History (Benadryl) losartan 100 mg tablet (Cozaar) 100 mg PO DAILY 01/26/24 01/26/24 History semaglutide (weight loss) 1 mg/0.5 0.25 mg subcut Q7D 01/26/24 01/26/24 History mL subcutaneous pen injector (Wegovy) sildenafil 50 mg tablet (Viagra) 50 mg PO DAILY PRN sexual activity 01/26/24 01/26/24 History tadalafil 10 mg tablet (Cialis) 10 mg PO DAILY PRN sexual activity 01/26/24 01/26/24 History zolpidem 10 mg tablet (Ambien) 01/26/24 History Allergies Allergy/AdvReac Type Severity Reaction Status Date / Time No Known Drug Allergies Allergy Verified 01/26/24 15:42 Exam Narrative Exam Narrative: Godwin Bazzi MD personally performed the services described in this documentation, as scribed by Meme Sruesh RVT, RDMS in my presence and it is both accurate and complete. Meme Bazzi RVT, RDMS, am scribing for, and in the presence of, Dr. Godwin Gray and in the presence of the patient. Constitutional Documenting provider has reviewed patient's vital signs: yes Common normals: oriented x3 Nutritional appearance: overweight Lymph Lymphatic: no lymphedema noted Cardio Peripheral pulses: posterior tibial pulses present and dorsalis pedis pulses present Extremity Common normals: normal capillary refill General: calf tenderness and edema Right lower extremity: lower leg Right lower leg: inspection and palpation Left lower extremity: lower leg Left lower leg: inspection and palpation Neuro Common normals: oriented x3 Results Imaging Venous US: Radiologist's impression: The ultrasound demonstrates Heat induced thrombus visualized 2.1cm from the SFJ. The heat induce thrombus extends from groin to mid calf. Assessment and Plan Assessment and Plan (1) Phlebitis of superficial vein of right lower extremity: Plan Patient in today for follow up ultrasound of lower extremity following treatment of EVLT of right leg GSV completed on 05/25/24. Godwin Bazzi MD personally performed the services described in this documentation, as scribed by Meme Suresh RVT, RDMS in my presence and it is both accurate and complete. Meme Bazzi RVT, RDMS, am scribing for, and in the presence of, Dr. Godwin Gray and in the presence of the patient.
--- NOTE | 2024-05-31 09:21 | P.DS_ITS ---
Discharge Plan Discharge Disposition: Home, Self-Care Outpatient Diagnostics: VC Endovenous Ablation 1VeinLT (Routine) Timeframe: 2 Weeks Facility: [facility] - Location: [facility] Ordered By: Godwin Gray Plan of Treatment: EVLT of left GSV Print Language: Maori Discharge Date/Time: 05/31/24 09:45
== END 2024-05-31 09:45 | disposition home or self-care (01) ==
PROVIDERS: PCP Radiology Diagnostic Radiology; Visit Provider Radiology Diagnostic Radiology
DX: I80.01 Phlebitis and thrombophlebitis of superficial vessels of right lower extremity (principal)
CPT/HCPCS: 93971; G0463

== ENCOUNTER 2024-07-06 08:32 | Outpatient (OUT) | payer MEDICARE, OTHER, SELFPAY ==
--- NOTE | 2024-07-05 08:28 | VEINCLINIC_ITS ---
Vital Signs 07/06/24 08:37 BP 120/58 BP Location Right Brachial BP Position Sitting BP Cuff Size Adult BP Source Manual Cuff Respiration 16 Pulse 100 H Pulse Source Monitor Pulse Oximetry (%) 95 Oxygen Delivery Method Room Air Comment The patient's blood pressure is elevated. Varicose Veins Patient in this day for EVLT of left GSV. Carlos Eduardo Bazzi MD personally performed the services described in this documentation, as scribed by Bay Reaves RN in my presence and it is both accurate and complete. Bay Bazzi RN, am scribing for, and in the presence of, Dr. Carlos Eduardo Turpin and in the presence of the patient. . thigh: bilateral (left leg > right leg), knee: bilateral, calf: bilateral, ankle: bilateral and gonzalez: bilateral aching, burning, cramping and dull 3 3 months Worsened in recent months: Yes standing elevating extremities Reports muscle spasms of leg, fatigue, heaviness, limb pain and leg edema History of lower extremity trauma: No Superficial thrombophlebitis: No Family history of varicose veins: no Has patient had previous lower extremity venous surgery: No Patient has previously received the following treatment(s) for lower extremity varicose veins: Reports none Does patient have a history of : not applicable Has patient had lower extremity venous scan with relux testing: No Support hose used: No Problems walking or doing physical activity: Yes How does it affect you: unable to exercise due to pain and weakness Do you walk much: Yes Review of Systems ROS Narrative Carlos Eduardo Bazzi MD personally performed the services described in this documentation, as scribed by Bay Reaves RN in my presence and it is both accurate and complete. Bay Bazzi RN, am scribing for, and in the presence of, Dr. Carlos Eduardo Turpin and in the presence of the patient. Status of ROS 10 or more systems reviewed and unremark able except as noted in history and below Cardiovascular Reports: edema Integumentary/Breast Reports: skin pain, skin swelling and changes in skin color Neurological Reports: numbness in extremities and weakness in extremities Hematologic/Lymphatic Reports: easy bruising and easy bleeding [facility] Medical History (Updated 07/06/24 @ 08:58 by Bay Reaves) Thrombophlebitis of superficial veins of left lower extremity ?I80.02 - Phlebitis and thrombophlebitis of superficial vessels of left lower extremity (ICD-10) Phlebitis of superficial vein of right lower extremity ?I80.01 - Phlebitis and thrombophlebitis of superficial vessels of right lower extremity (ICD-10) Prostate CA ?C61 - Malignant neoplasm of prostate (ICD-10) Knee arthropathy ?M17.10 - Unilateral primary osteoarthritis, unspecified knee (ICD-10) 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 ?M19.112 - Post-traumatic osteoarthritis, left shoulder (ICD-10) ?S46.002S - Unspecified injury of muscle(s) and tendon(s) of the rotator cuff of left shoulder, sequela (ICD-10) Kidney stones ?N20.0 - Calculus of kidney (ICD-10) Osteoarthritis of hip ?M16.9 - Osteoarthritis of hip, unspecified (ICD-10) Varicose veins of bilateral lower extremities with pain ?I83.813 - Varicose veins of bilateral lower extremities with pain (ICD-10) Hypertension ?I10 - Essential (primary) hypertension (ICD-10) Obesities, morbid ?E66.01 - Morbid (severe) obesity due to excess calories (ICD-10) Obstructive sleep apnea ?G47.33 - Obstructive sleep apnea (adult) (pediatric) (ICD-10) Angina pectoris ?I20.9 - Angina pectoris, unspecified (ICD-10) Coronary artery disease ?I25.10 - Atherosclerotic heart disease of [place] coronary artery without angina pectoris (ICD-10) Nonrheumatic aortic (valve) stenosis ?I35.0 - Nonrheumatic aortic (valve) stenosis (ICD-10) Surgical History (Updated 07/06/24 @ 08:54 by Bay Reaves) Status post laser ablation of incompetent vein ?Z98.890 - Other specified postprocedural states (ICD-10) Status post laser ablation of incompetent vein ?Z98.890 - Other specified postprocedural states (ICD-10) History of carpal tunnel surgery ?Z98.890 - Other specified postprocedural states (ICD-10) History of right hip replacement ?Z96.641 - Presence of right artificial hip joint (ICD-10) History of bilateral knee replacement ?Z96.653 - Presence of artificial knee joint, bilateral (ICD-10) Family History (Updated 08/15/24 @ 09:38 by Bay Reaves) Other Aneurysm Family history of hypertension Family history of stroke Social History (Updated 01/27/24 @ 09:42 by Bay Reaves) Within the past year, how often did you have a drink containing alcohol: 2-3 times a week Smoking status: Never smoker Non-prescribed substance use: denies use Meds Home Medications and Allergies Home Medications ?Medication ?Instructions ?Recorded ?Confirmed ?Type amlodipine 5 mg tablet (Norvasc) 5 mg PO DAILY 01/26/24 01/26/24 History aspirin 81 mg capsule 81 mg PO DAILY 01/26/24 01/26/24 History atorvastatin 40 mg tablet 40 mg PO DAILY 01/26/24 01/26/24 History cholecalciferol (vitamin D3) 25 25 mcg PO DAILY 01/26/24 01/26/24 History mcg (1,000 unit) tablet diphenhydramine HCl 25 mg capsule 25 mg PO Q8H PRN allergic reaction 01/26/24 01/26/24 History (Benadryl) losartan 100 mg tablet (Cozaar) 100 mg PO DAILY 01/26/24 01/26/24 History semaglutide (weight loss) 1 mg/0.5 0.25 mg subcut Q7D 01/26/24 01/26/24 History mL subcutaneous pen injector (Wegovy) sildenafil 50 mg tablet (Viagra) 50 mg PO DAILY PRN sexual activity 01/26/24 01/26/24 History tadalafil 10 mg tablet (Cialis) 10 mg PO DAILY PRN sexual activity 01/26/24 01/26/24 History zolpidem 10 mg tablet (Ambien) 01/26/24 History Allergies Allergy/AdvReac Type Severity Reaction Status Date / Time No Known Drug Allergies Allergy Verified 01/26/24 15:42 Exam Narrative Exam Narrative: Carlos Eduardo Bazzi MD personally performed the services described in this documentation, as scribed by Bay Reaves RN in my presence and it is both accurate and complete. Bay Bazzi RN, am scribing for, and in the presence of, Dr. Carlos Eduardo Turpin and in the presence of the patient. Constitutional Documenting provider has reviewed patient's vital signs: yes Common normals: oriented x3 Nutritional appearance: overweight Lymph Lymphatic: no lymphedema noted Cardio Peripheral pulses: posterior tibial pulses present and dorsalis pedis pulses present Extremity Common normals: normal capillary refill General: calf tenderness and edema Right lower extremity: lower leg Right lower leg: inspection and palpation Left lower extremity: lower leg Left lower leg: inspection and palpation Neuro Common normals: oriented x3 Assessment and Plan Assessment and Plan (1) Varicose veins of bilateral lower extremities with pain: Plan f/u evaluation with physician along with left leg limited u/s ICarlos Eduardo MD personally performed the services described in this documentation, as scribed by Bay Reaves RN in my presence and it is both accurate and complete. IBay RN, am scribing for, and in the presence of, Dr. Carlos Eduardo Turpin and in the presence of the patient. Procedures Procedure Instructions Procedures Plan of care: Risks and benefits of the procedure were discussed at length and informed written consent was obtained.? Time-out completed for verification of correct patient, procedure and site.? Staff present during time-out: Bay Reaves RN,? Carlos Eduardo Turpin MD, [facility]/RVT, Time Out Time_917 Patient prepped and procedure performed in usual sterile fashion. Risk of injury related to use of Diode laser and/or laser devices__CR___ ? Serial number of laser used :? [id number] Control panel self test performed, electrical cords in good condition, floor is dry, basin of water available, fire extinguisher in close proximity_CR__ Polycarbonate goggles available and Laser warning signs outside of doors___CR__ Eye protection provided to patient and staff in room_CR___ Use of laser retardant drapes and dull blackened instruments as directed__CR___ Use of nonflammable prep solutions and use of saline soaked sponges to protect tissues as indicated _CR___ Length __26 cm Laser operated by _Dr. Turpin Physician verbal confirmation laser locked in place__CR__ Laser start time (date and time) _07/06/2024@__0927 Laser stop time(date and time) _@_0930 Thomas _8.0___ Average laser use __1217 Joules Average laser use___152 seconds Pulse continuous ___CR_? Pulse intermittent ___ Amount of Tumescent used _125cc Evaluated patient for signs and symptoms of electrical injury __CR___ ? Skin clear at insertion site __CR___ Patient tolerated procedure well.? left leg Coban dressing applied to access site.? Applied left thigh high leg compression stocking. Will return on 07/13/2024 for lef leg limited venous ultrasound and exam. I, Carlos Eduardo Turpin MD personally performed the services described in this documentation, as scribed by Bay Reaves RN in my presence and it is both accurate and complete. I, Bay Reaves RN, am scribing for, and in the presence of, Dr. Carlos Eduardo Turpin and in the presence of the patient.
--- NOTE | 2024-07-05 08:54 | W.VEIN ---
Discharge Plan Discharge Disposition: Home, Self-Care Outpatient Diagnostics: VC Facility EST LMTD (Routine) Timeframe: 2 Weeks Facility: [facility] - Location: [facility] Ordered By: Carlos Eduardo Turpin VC EXT Venous LT Limited (Routine) Timeframe: 2 Weeks Facility: [facility] - Location: Vein Center Ordered By: Carlos Eduardo Turpin Follow Up Appointments: 07/13/2024 Plan of Treatment: f/u evaluation with physician along with right leg limited u/s Patient Instructions: Endovenous Ablation (DC) Print Language: Afghan Discharge Date/Time: 07/06/24 08:45
--- NOTE | 2024-07-06 08:33 | VEIN_ITS ---
[address] [address] Patient Name: MEERA WARNER MRN: [id number] date: 1950 Sex: M Assigned Patient Location: Current Patient Location: Accession/Order Number: [id number] Exam Date: 07/06/2024 08:38 Report Date: 07/06/2024 10:13 At the request of: NATHEN OWEN Procedure: VC Endovenous Ablation 1VeinLT EXAMINATION: VC Endovenous Ablation 1Vein, left great saphenous vein HISTORY: I83.813 - Varicose veins of bilateral lower extremities w... COMPARISON: No relevant comparison available. TECHNIQUE: The risks and benefits of the procedure had been previously discussed, and were rediscussed at length. Informed written consent was obtained. Liset Guzmán and Bay Reaves assisted. Time out procedure was performed. The left lower extremity was prepared and draped in the usual sterile fashion to allow knee flexion in the sterile field. Duplex ultrasound probe was draped in a sterile cover, sterile transmission gel was used. Venous mapping was performed with the areas of dilation and large tributaries marked. The total length was 26 cm from the entry distal thigh to 3 cm below the saphenofemoral junction. The diameter of the greater saphenous vein ranged from 5-6 mm. A 30 gauge needle and 1% buffered lidocaine was used to anesthetize the entry site. A 4 mm incision was made with a scalpel and the saphenous vein was entered percutaneously under direct ultrasound guidance with a micropuncture set, a single stick was successful in gaining access. A micro-guide wire was inserted and the needle removed. A micro-set including a dilator was inserted over the microwire and the needle and dilator were removed. A 0.018 guide wire was inserted through the micro-set and threaded through the saphenous vein to the saphenofemoral junction. The dilator was removed and an introducer sheath was inserted over the wire until the end of the sheath entered the saphenofemoral junction. The dilator and wire were removed and the 600 micron fiber was introduced and placed and positioned so that it extended beyond the sheath and was 3 cm peripheral to the saphenofemoral femoral junction. Final position of the fiber was determined by ultrasound guidance and duplex imaging. Tumescent anesthetic was delivered by ultrasound guidance. 125 cc of fluid was delivered along the entire course of the saphenous vein. The solution consisted of 1000 cc of normal saline with 40 mL of 1% lidocaine and 20 mL of sodium bicarbonate. A final positioning check was made. The energy source was turned on by means of the foot pedal and the fiber and sheath were withdrawn. The total number of Joules delivered was 1217. The laser was active for 152 seconds under continuous pulse, average laser use of 8 J. Laser start time 927 AM . Laser stop time 9:30AM . A duplex ultrasound revealed compressibility and flow at the saphenofemoral junction immediately after the procedure. Hemostasis at the access site was achieved. The skin incision of the saphenous vein was closed with a 4 x 4. A compression stocking was applied. Postop instructions were given. A follow up appointment was recommended and scheduled. The patient tolerated the procedure well and was discharged in good condition . VEIN/VC Endovenous Ablation 1VeinLT IMPRESSION: Technically successful endovenous laser ablation left great saphenous vein Electronically authenticated by: MEERA BRAND Date: 07/06/2024 10:13
[2024-07-06 08:37] VITALS: BP 120/58; PULSE 100; O2SAT 95
--- OUTSIDE RECORDS SUMMARY | 2024-07-06 08:45 | XMS_ITS | CCD ---
Author Organization [facility] Care Team Providers Care Circulation Crew Leader Name Role Phone JOBY CEDILLO Attending JOBY [...] Care Provider DO Mona Reese Attending Provider [phone] Mona Reese DO Primary Care Provider DO Mona Reese Primary Care Provider [phone] TRAVIS Izquierdo Attending Provider MD Mona Lezama II Attending Provider TRAVIS Roa Attending Provider Mona Reese DO Primary Care Provider Mona Reese DO Unavailable [phone] Mona Reese DO Primary Care Provider MONA [...] Mona Simpson DO Primary Care Provider Essie Granger Attending Provider Mona Lezama MD Attending Provider [phone] Mona Reese DO Attending Provider Mona Reese [facility] Care Unavailable [...] (20 sources) Dihydropyridine Calcium Channel Caleb Start: 01-19-20 End: 02-09-20 24 take 0.5 tablet by mouth once daily [...] aspirin 81 mg delayed release oral tablet (20 sources) Platelet Aggregation Inhibitor, Nonsteroidal Anti-inflammatory Drug [...] once daily. Take 1 tablet by kenneth twice daily. atorvastatin 40 mg oral tablet (20 sources) HMG-CoA Reductase Inhibitor Start: End: take 1 tablet by mouth once daily Atorvastatin 40 mg Tablet Active 40 MG PO Daily February 20, 2019 11:00pm Comment on above: Take 40 mg by mouth once daily. brimonidine tartrate 2 mg/ml ophthalmic solution (13 sources) alpha-Adrenergic Agonist Start: Brimonidine 0.2 % drops Active DROPS OPHTHALMIC February 08, 2024 11:00pm Start: 02-09-2024 Brimonidine Ac tive DROPS OPHTHALMIC February 09, 2024 12:00am Start: 03-20-2023 brimonidine (A lphaGAN) 0.2 % ophthalmic solution 03/20/2023 Active cholecalciferol 0.025 mg oral tablet (10 sources) Vitamin D take 1 tablet by [...] mg/ml / timolol 5 mg/ml ophthalmic solution (9 sources) Carbonic Anhydrase Inhibitor, beta-Adrenergic Caleb Start: [...] Start: 02-21-2019 take 1 tablet by mouth at bedtime losartan (Cozaar) 100 MG tablet Indications: Essential hypertension (CMS/HCC) Take 1 tablet (100 mg) by mouth at bedtime 90 tablet 3 08/09/2023 Active Comment on above: Take 100 mg [...] Discontinued (Other) sildenafil 50 mg oral tablet (20 sources) Phosphodiesterase 5 Inhibitor Start: 11-04-2023 End: [...] CTZ Active tadalafil 10 mg oral tablet (13 sources) Phosphodiesterase 5 Inhibitor Start: 02-09-2024 Tadalafil Active MG PO February 09, 2024 12:00am Start: 2023 tadalafil (June lis) 10 MG tablet Indications: Erectile Dysfunction As directed 90 tablet 3 06/21/2023 Active tamsulosin hydrochloride 0.4 mg oral capsule (9 [...] 12 hr timolol 5 mg/ml ophthalmic solution (20 sources) beta-Adrenergic Caleb Start: 09-10-2021 End: 04-09-2023 [...] Active vitamin b12 0.5 mg oral tablet (6 sources) Vitamin B12 Start: 02-09-20 24 End: 02-09-20 25 take 1 tablet by mouth once daily cyanocobalamin (Vitamin B-12) 500 MCG tablet Indications: Vitamin B12 deficiency Take 1 tablet (500 mcg) by mouth Daily 30 tablet 11 02/09/2024 02/08/2025 Active Vitamin B12 Acti ve Zinc (1 source) Zinc Active zolpidem tartrate 10 mg oral tablet (20 sources) gamma-Aminobutyric Acid-ergic Agonist Start: 09-03-2024 zolpidem (Ambien) 10 MG tablet Indications: Primary insomnia Take 1 tablet (10 mg) by mouth as needed at bedtime for sleep 30 tablet 3 02/15/2024 Active Start: 06-21-2020 End: 02-15-2024 zolpidem (Ambien) 10 MG tabl et Indications: Primary insomnia Take 1 tablet (10 mg) by mouth as needed at bedtime for sleep 30 tablet 12/07/2023 02/15/2024 Discontinued (Reorder) Comment on above: Take by mouth at [...] Caleb, Angiotensin Converting Enzyme Inhibitor End: 09-11-19 22 take 1 capsule by mouth once daily amLODIPine-benazepril (LOTREL) 5-10 mg per capsule Take 1 capsule by mouth once daily. 0 09/10/2021 Discontinued (Course of therapy completed) Comment on above: Take 1 capsule by [facility] once daily. amoxicillin 500 mg oral tablet (6 sources) Penicillin-class Antibacterial Start: 12-30-19 End: 02-01-20 23 Amoxicillin 500 mg tablet Indications: S/P hip [...] capsule (6 sources) Start: 10-09-19 End: 07-06-19 take 1 capsule by mouth twice daily docusate sodium (COLACE) 100 mg capsule Take 1 capsule by mouth twice daily. 10/08/2021 07/06/2022 Discontinued Comment on above: Take 1 capsule by mo [facility] twice daily. docusate sodium 50 mg / sennosides, fdc 8.6 mg oral tablet (6 sources) Start: [...] Start: 07-03-2021 take 1 tablet by kenneth once daily hydroCHLOROthiazide (HYDRODIURIL, ESIDRIX) 25 mg [...] ophthalmic solution (20 sources) Prostaglandin Analog Start: Latanoprost 0.005 % Ophthalmic Solution Quantity: 2 [...] Start: 2021 End: 2023 Ondansetron 4 mg Tablet,Disintegrat ing Discontinued 4 MG PO every 6 to [...] Semaglutide-Weight Management (Wegovy) 1 MG/0.5ML solution auto-injector (7 sources) Start: 2023 End: 2023 inject 1 mg by subcutaneous injection every week Semaglutide-Weight Management (Wegovy) 1 MG/0.5ML solution auto-injector Indications: Elevated Lp(a) (CMS/HCC) , 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 (CMS/HCC) , Obstructive sleep apnea syndrome , Morbid obesity (CMS/HCC) Inject 1 mg under the skin 1 (one) time per week 2 mL 3 01/19/2024 04/12/2024 Discontinued Start: 01-19-2024 inject 1 mg by subcu taneous injection every week Semaglutide-Weight Management (Wegovy) 1 MG/0.5ML solution auto-injector Indications: Elevated Lp(a) (CMS/HCC) , 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 07/03/2021 07/06/2022 Discontinued Comment on above: Take 25 mg by mouth once daily. terbinafine 250 mg oral tablet (1 source) Allylamine Antifungal Start: 06-25-2016 End: 09-10-2021 take 1 tablet by mouth once daily terbinafine HCl (LAMISIL) 250 mg tablet Take 1 tablet by mouth once daily. 30 tablet 0 06/25/2016 09/10/2021 Discontinued (Course of therapy completed) Comment on above: Take 1 tablet by kenneth once daily. valsartan 160 mg oral tablet (1 source) Angiotensin 2 Receptor Caleb Start: 01-17-2010 End: 09-10-2021 valsartan(DIOVAN 160 MG TAB) Take one(1) tablet daily. 0 01/17/2010 09/10/2021 Discontinued (Course of therapy completed) Comment on above: Take one(1) tablet d aily. Problems Active Problems Problem Classification Problem Date Documented Da te Episodic/Chronic Acquired foot deformities (1 source) Flat foot [pes planus] (acquired), left foot; Translations: [FLAT FOOT PES PLANUS ACQ LT FOOT] Onset: 03-06-2021 Episodic Anxiety disorders (7 sources) Anxiety; Translations: [Anxiety disorder, unspecified] Onset: [...] Chronic Coronary atherosclerosis and other heart disease (9 sources) Coronary arteriosclerosis; Translations: [Atherosclerotic heart disease of squaxin coronary artery without angina pectoris] Onset: 11-04-2023 11-04-2023 Chronic Disorders of lipid metabolism (20 sources) Hypercholesterolemia ; Translations: [Pure hypercholesterolemia , unspecified] Onset: 12-30-2022 Resolved: 04-14-2024 01-17-2010 Chronic Essential hypertension (20 sources) Essential (primary) hypertension; Translations: [Essential hypertension] Onset: 03-06-2021 09-10-2021 Chronic Genitourinary symptoms and ill-defined conditions (20 sources) Urge incontinence of urine; Translations: [Urge incontinence] Onset: 10-23-2010 10-23-2010 Chronic Heart valve disorders (14 sources) Aortic stenosis, non-rheumatic ; Translations: [Nonrheumatic aortic (valve) stenosis] Onset: 01-19-2024 01-19-2024 Chronic Hyperplasia of prostate (20 sources) Benign prostatic hyperplasia; Translations: [Benign prostatic hyperplasia without lower urinary tract symptoms] Onset: 06-25-2011 Resolved: 04-14-2024 06-25-2011 Chronic Miscellaneous mental health disorders (11 sources) Not getting enough sleep; Translations: [Insufficient sleep syndrome] Onset: 12-30-2022 04-08-2023 Chronic Nutritional deficiencies (9 sources) Vitamin D deficiency; Translations: [Vitamin D deficiency, unspecified] Onset: 12-30-2022 04-08-2023 Chronic Nutritional deficiencies (12 sources) Cobalamin deficiency; Translations: [Deficiency of other specified B group vitamins] Onset: 12-30-2022 04-08-2023 Episodic Osteoarthritis (20 sources) Osteoarthritis of right hip joint; Translations: [Unilateral primary osteoarthritis, right hip] Onset: 04-07-2010 Chronic Other and unspecified benign neoplasm (8 sources) History of polyp of colon; Translations: [Personal history of colonic polyps] 06-24-2020 Episodic Other bone disease and musculoskeletal deformities (7 sources) Idiopathic scoliosis of lumbar spine; Translations: [...] Other hereditary and degenerative nervous system conditions (11 sources) Restless legs; Translations: [Restless legs syndrome] Onset: 12-30-2022 04-08-2023 Chronic Other lower respiratory disease (4 sources) Dyspnea; Translations: [Shortness of breath] Onset: 04-14-2024 04-14-2024 Episodic Other lower respiratory disease (1 source) Shortness of breath; Translations: [Shortness of breath] Onset: 04-14-2024 Episodic Other male genital disorders (9 sources) Erectile dysfunction co-occurrent and due to arterial insufficiency; Translations: [Erectile dysfunction due to arterial insufficiency] Onset: 2023 04-08-2023 Chronic Other male genital disorders (7 sources) Male erectile dysfunction, unspecified; Translations: [Impotence [...] Chronic Other nutritional; endocrine; and metabolic disorders (9 sources) Morbid obesity; Translations: [Morbid (severe) obesity [...] CALLOSITIES] Onset: 01-01-2021 Episodic Residual codes; unclassified (13 sources) Obstructive sleep apnea syndrome; Translations: [Obstructive sleep apnea (adult) (pediatric)] Onset: 12-30-2022 04-09-2023 Chronic Residual codes; unclassified (1 source) Obstructive sleep apnea (adult) (pediatric); Translations: [Obstructive sleep apnea G47.33] Onset: 03-13-2021 Resolved: 03-13-2021 Chronic Residual codes; unclassified (1 source) Sleep apnea; Translations: [Unspecified sleep apnea] Chronic Residual codes; unclassified (2 sources) Localized edema; Translations: [Localized edema] Onset: 04-14-2024 04-14-2024 Episodic Screening and history of mental health and substance abuse codes (1 source) Ex-smoker; Translations: [Personal history of tobacco use] Episodic Comment on above: pipe smoker - quit 1 981; Spondylosis; intervertebral disc disorders; other back problems (18 sources) Cervical spondylosis without myelopathy; Translations: [Spondylosis [...] 2 12-25-2011 Episodic Diabetes mellitus without complication (11 sources) Impaired fasting glycemia; Translations: [Impaired fasting glucose] Onset: 3 04-08-2023 Episodic Joint disorders and dislocations; trauma-related (14 sources) Tear of meniscus of knee; Translations: [Other tear of cartilage or meniscus of knee, current] Onset: 3 01-17-2010 Episodic Other and unspecified benign neoplasm (7 sources) Lipoma of back; Translations: [Benign lipomatous neoplasm of skin and subcutaneous tissue of trunk] Onset: 4 11-04-2023 Episodic Other bone disease and musculoskeletal deformities (2 sources) Heterotopic ossification; Translations: [Other specified disorders of bone, unspecified site] 02-09-2024 Episodic Other connective tissue disease (14 sources) Osteophyte of bone; Translations: [Other shoulder lesions, unspecified shoulder] Onset: 3 01-17-2010 Episodic Other non-traumatic joint disorders (1 source) Knee joint effusion; Translations: [Effusion, right knee] Episodic Other nutritional; endocrine; and metabolic disorders (11 sources) Obese class I; Translations: [Obesity, unspecified] Onset: 2 Resolved: 4 10-01-2021 Chronic Other nutritional; endocrine; and metabolic disorders (7 sources) Disorder of plasma protein metabolism; Translations: [Other disorders of plasma-protein metabolism, not elsewhere classified] Onset: 3 Resolved: 3 12-30-2022 Chronic Other nutritional; endocrine; and metabolic disorders (7 sources) Hyperuricemia; Translations: [Hyperuricemia without signs of inflammatory arthritis and tophaceous disease] Onset: 4 08-16-2023 Episodic Phlebitis; thrombophlebitis and thromboembolism (7 sources) Thrombophlebitis; Translations: [Phlebitis and thrombophlebitis of unspecified site] Onset: 3 Resolved: 3 12-30-2022 Episodic Spondylosis; intervertebral disc disorders; other back problems (20 sources) Low back pain; Translations: [Low back pain radiating to right leg] Onset: 3 01-17-2010 Episodic Superficial injury; contusion (1 source) Contusion of knee; Translations: [Contusion of right knee, subsequent encounter] Episodic Unclassified (2 sources) Onset: 3 Resolved: 4 04-09-2023 Varicose veins of lower extremity (2 sources) Varicose veins of lower limb co-occurrent with edema; Translations: [Varicose veins of bilateral lower extremities with other complications] 02-09-2024 Episodic Results Test Name Value Interpretation Reference Range Facility [facility] echo transthoracicon [facility] echo transthoracic [facility] [place] [address] [place] [address] Echocardiogram Signed Patient: Meera Mckoy MR#: [id number] : 1950 Acct:[id number] Age/Sex: 73 / M ADM Date: 02/11/24 Loc: Room: Type: [facility] Attending Dr: Bib ROBLES Ordering Provider: Bib ROBLES Date of Service: 02/11/24/ [facility] echo transthoracic: Non-rheumatic . Copies to: MD [...] PM : + -----+ -------+ Transcribed By: SCV Performed At: 02/11/24 6948 Signed By: Rasheed Myers MD 02/11/24 9589 Normal [facility] XR hip RT min 2V(w/wo pelvis )*on 02-09-2024 XR hip RT min 2V(w/wo pelvis)* [facility] [address] [place] [address] XRay Report Signed Patient: Proy,Meera E MR#: [id number] : 1950 Acct:[id number] Age/Sex: 73 / M ADM Date: 02/09/24 Loc: SOXD Room: Type: [facility] Attending Dr: Mona Lezama II, MD Copies [...] SEEN.. Impression dictated by: Ferdinand Mckeon Jr., DDayannaODayanna02/09/2024 2:52 PM Dictation Location: [facility] Transcribed By: [facility] 02/09/24 145 Dictated By: Ferdinand Mckeon Jr, DO 02/09/24 1452 Signed By: 02/09/24 1452 Normal [facility] Automated basophil %Ordered By: Essie Izquierdo on 02-04-2024 Basophils/100 WBC (Bld) 0.8 % Normal . [facility] Comment on above: Performed By: #### C BC, B12, BMP #### [address] Automated basophil countOrde red By: Essie Izquierdo on 02-04-2024 Basophils (Bld) [#/Vol] 0.0 10*3/uL Normal 0.0-0.2 [facility] Comment on above: Result Comment: PERF ORMED BY: [place] [id number] PATHOLOGIST [employer] VICE PRESIDENT KENNY SOLITARIO M.D. Performed By: #### C BC, B12, BMP #### [address] Automated blood monocyte cou ntOrdered By: Essie Nolberto-Catarino on 02-04-2024 Monocytes (Bld) [#/Vol] 0.8 10*3/uL Normal 0.0-0.8 [facility] Comment on above: Performed By: #### C BC, B12, BMP #### [address] Automated eosinophil %Ordere d By: Essie Nolberto-Catarino on 02-04-2024 Eosinophils/100 WBC (Bld) 4.0 % Normal . [facility] Comment on above: Performed By: #### C BC, B12, BMP #### [address] Automated eosinophil countOr dered By: Essie Nolberto-Catarino on 02-04-2024 Eosinophils (Bld) [#/Vol] 0.2 10*3/uL Normal 0.0-0.45 [facility] Comment on above: Performed By: #### C BC B12, BMP #### [address] Automated monocyte %Ordered By: Essie Nolberto-Catarino on 02-04-2024 Monocytes/100 WBC (Bld) 13.4 % Normal . [facility] Comment on above: Performed By: #### C BC, B12, BMP #### [address] Automated neutrophil %Ordere d By: Essie Nolberto-Catarino on 02-04-2024 Neutrophils/100 WBC (Bld) 67.2 % Normal . [facility] Comment on above: Performed By: #### C BC, B12, BMP #### [address] Basic Metabolic Panelon 01-13 GFR/1.73 sq M.predicted MDRD (S/P/Bld) [Vol rate/Area] mL/min/{1.73_m2} Normal [facility] Comment on above: Performed By: #### C BC, B12, BMP #### [facility] [address] Basophils Auto (Bld) [#/Vol] Ordered By: Essie Izquierdo on 02-04-2024 Basophils (Bld) [#/Vol] Automated basoph il count 0.0-0.2 [facility] Basophils/100 WBC Auto (Bld) Ordered By: Essie Izquierdo on 02-04-2024 Basophils/100 WBC (Bld) Automated basophil % . [facility] CBC W Auto Differential pane l (Bld)on 02-04-2024 Basophils (Bld) [#/Vol] 0.0 10*3/uL 0.0 - 0.2 10*3/uL [facility] Basophils/100 WBC Manual cnt (Syn fld) 0.8 % . [facility] Eosinophils (Bld) [#/Vol] 0.2 10*3/uL 0.0 - 0.45 10*3/uL [facility] Eosinophils/100 WBC Manual cnt (Syn fld) 4.0 % . [facility] Erythrocyte distribution width (RBC) [Ratio] 12.9 % 12.0 - 14.8 % [facility] Hematocrit (Bld) [Volume fraction] 40.3 % 38.8 - 50.0 % [facility] Hemoglobin (Bld) [Mass/Vol] 13.8 g/dL 13.0 - 17.0 g/dL [facility] Interpretation and review of laboratory results Abnormal [facility] Lymphocytes (Bld) [#/Vol] 0.9 10*3/uL Low 1.00 - 4.8 10*3/uL [facility] Lymphocytes/100 WBC Manual cnt (Syn fld) 14.6 % . [facility] MCH (RBC) [Entitic mass] 33.5 pg 27.5 - 35.[address] [facility] MCHC (RBC) [Mass/Vol] 34.3 g/dL 32.5 - 35.6 g/dL [facility] MCV (RBC) [Entitic vol] 97.7 fL 83.5 - [address] [facility] Monocytes (Bld) [#/Vol] 0.8 10*3/uL 0.0 - 0.8 10*3/uL [facility] Monocytes+Macrophages/1 00 WBC Manual cnt (Syn fld) 13.4 % . [facility] Neutrophils (Bld) [#/Vol] 4.1 10*3/uL 1.8 - 7.7 10*3/uL [facility] Neutrophils/100 WBC Manual cnt (Syn fld) 67.2 % . [facility] NRBC 0.1 /100{WBC} 0 - 0.5 /100{WBC} [facility] Platelet mean volume (Bld) [Entitic vol] 9.4 fL 6.6 - 10.[address] [facility] Platelets (Bld) [#/Vol] 192 10*3/uL 150 - 450 10*3/uL [facility] RBC LM.HPF (Urine sed) [#/Area] 4.12 /[HPF] 3.90 - 5.60 [facility] WBC (Bld) [#/Vol] 6.1 10*3/uL 4.1 - 10.5 10*3/uL [facility] WBC LM.HPF (Urine sed) [#/Area] 6.1 10*3/uL 4.1 - 10.5 10*3/uL [facility] Calcium [Mass/volume] in Ser um or PlasmaOrdered By: Essie Izquierdo on 02-04-2024 Calcium [Mass/Vol] 9.3 mg/dL Normal 8.6-10.3 [facility] Comment on above: Performed By: #### C CLAUDIO, B12, BMP #### [facility] [address] Calcium [Mass/Vol] Calcium [Mass/volume ] in Serum or Plasma 8.6-10.3 [facility] Carbon dioxide, total [Moles /volume] in Serum or PlasmaOrdered By: Essie Izquierdo on 02-04-2024 CO2 [Moles/Vol] 27.3 mmol/L Normal 21.0-31.0 [facility] Comment on above: Performed By: #### C BC, B12, BMP #### [facility] [address] CO2 [Moles/Vol] Carbon dioxide, tota l [Moles/volume] in Serum or Plasma 21.0-31.0 [facility] Chloride [Moles/volume] in S rossy or PlasmaOrdered By: Essie Izquierdo on 02-04-2024 Chloride [Moles/Vol] 106 mmol/L Normal 98-107 [facility] Comment on above: Performed By: #### C BC, B12, BMP #### [facility] [address] Chloride [Moles/Vol] Chloride [Moles/volume] in Serum or Plasma 98-107 [facility] Complete Blood Count Auto Di ffon 02-04-2024 Mean Corpuscular HGB Conc 34.3 g/dL Normal 32.5-35.6 [facility] Comment on above: Performed By: #### C CLAUDIO, B12, BMP #### [facility] [address] NRBC% 0.1 /100{WBC} Normal 0-0.5 [facility] Comment on above: Performed By: #### C CLAUDIO, B12, BMP #### [facility] [address] Creatinine [Mass/volume] in Serum or PlasmaOrdered By: Essie Izquierdo on 02-04-2024 Creatinine [Mass/Vol] 0.96 mg/dL Normal 0.70-1.30 [facility] Comment on above: Performed By: #### C CLAUDIO, B12, BMP #### [facility] [address] Creatinine [Mass/Vol] Creatinine [Mass/volume] in Serum or Plasma 0.70-1.30 [facility] Eosinophils Auto (Bld) [#/Vo l]Ordered By: Essie Izquierdo on 02-04-2024 Eosinophils (Bld) [#/Vol] Automated eosinophil count 0.0-0.45 [facility] Eosinophils/100 WBC Auto (Bl d)Ordered By: Essie Izquierdo on 02-04-2024 Eosinophils/100 WBC (Bld) Automated eosinophil % . [facility] Erythrocyte distribution wid th Auto (RBC) [Ratio]Ordered By: Essie Toribio on 02-04-2024 Erythrocyte distribution width (RBC) [Ratio] Erythrocyte distribution width [Ratio] by Automated count 12.0-14.8 [facility] Erythrocyte distribution wid th [Ratio] by Automated countOrdered By: Essei Izquierdo on 02-04-2024 Erythrocyte distribution width (RBC) [Ratio] 12.9 % Normal 12.0-14.8 [facility] Comment on above: Performed By: #### C BC, B12, BMP #### [facility] [address] [place] [address] [place] Erythrocytes [#/volume] in B lood by Automated countOrdered By: Essie Izquierdo on 02-04-2024 RBC (Bld) [#/Vol] 4.12 10*6/uL Normal 3.90-5.60 [facility] Comment on above: Performed By: #### C CLAUDIO, B12, BMP #### [facility] [address] [place] [id number] [place] Glucose [Mass/volume] in Ser um or PlasmaOrdered By: Essie Izquierdo on 02-04-2024 Glucose [Mass/Vol] 90 mg/dL Normal 70-100 [facility] Comment on above: ADA recommended refe rence rangeRandom Glucose Reference Range is dependent on time and content of last meal. Glucose of more than 200 mg/dL in a nonstressed, ambulatory subject supports the diagnosis of Diabetes Mellitus. Result Comment: [facility] Glucose Reference Range is dependent on time and content of last meal. Glucose of more than 200 mg/dL in a nonstressed, ambulatory subject supports the diagnosis of Diabetes Mellitus. ADA recommended reference range Performed By: #### C BC, B12, BMP #### [facility] [address] [place] [id number] [place] Glucose [Mass/Vol] Glucose [Mass/volume ] in Serum or Plasma 70-100 [facility] Comment on above: ADA recommended refe rence rangeRandom Glucose Reference Range is dependent on time and content of last meal. Glucose of more than 200 mg/dL in a nonstressed, ambulatory subject supports the diagnosis of Diabetes Mellitus. Hematocrit Auto (Bld) [Volum e fraction]Ordered By: Essie Izquierdo on 02-04-2024 Hematocrit (Bld) [Volume fraction] Hematocrit [Volume Fraction] of Blood by Automated count 38.8-50.0 [facility] Hematocrit [Volume Fraction] of Blood by Automated countOrdered By: Essie Izquierdo on 02-04-2024 Hematocrit (Bld) [Volume fraction] 40.3 % Normal 38.8-50.0 [facility] Comment on above: Performed By: #### C CLAUDIO B12, BMP #### [facility] [address] [place] [address] Hemoglobin [Mass/volume] in BloodOrdered By: Essie Izquierdo on 02-04-2024 Hemoglobin (Bld) [Mass/Vol] 13.8 g/dL Normal 13.0-17.0 [facility] Comment on above: Performed By: #### C CLAUDIO B12, BMP #### [address] Hemoglobin (Bld) [Mass/Vol] Hemoglobin [Mass/volume] in Blood 13.0-17.0 [facility] Leukocytes [#/volume] correc saul for nucleated erythrocytes in Blood by Automated counOrdered By: Essie Izquierdo on 02-04-2024 WBC corrected for nucl RBC Auto (Bld) [#/Vol] 6.1 10*3/uL 4.1-10.5 [facility] WBC corrected for nucl RBC Auto (Bld) [#/Vol] Leukocytes [#/volume] corrected for nucleated erythrocytes in Blood by Automated coun 4.1-10.5 [facility] Leukocytes [#/volume] in Blo od by Automated countOrdered By: Essie Toribio on 02-04-2024 WBC (Bld) [#/Vol] 6.1 10*3/uL Normal 4.1-10.5 [facility] Comment on above: Performed By: #### C BC, B12, BMP #### [facility] [address] Lymphocytes Auto (Bld) [#/Vo l]Ordered By: Essie Izquierdo on 02-04-2024 Lymphocytes (Bld) [#/Vol] Lymphocytes [#/volume] in Blood by Automated count Low 1.00-4.8 [facility] Lymphocytes [#/volume] in Bl ood by Automated countOrdered By: Essie Toribio on 02-04-2024 Lymphocytes (Bld) [#/Vol] 0.9 10*3/uL Low 1.00-4.8 [facility] Comment on above: Performed By: #### C BC, B12, BMP #### [facility] [address] [place] [address] Lymphocytes/100 WBC Auto (Bl d)Ordered By: Essie Izquierdo on 02-04-2024 Lymphocytes/100 WBC (Bld) Lymphocytes/100 leukocytes in Blood by Automated count . [facility] Lymphocytes/100 leukocytes i n Blood by Automated countOrdered By: Essie Izquierdo on 02-04-2024 Lymphocytes/100 WBC (Bld) 14.6 % Normal . [facility] Comment on above: Performed By: #### C BC, B12, BMP #### [facility] [address] [place] [address] MCH Auto (RBC) [Entitic mass ]Ordered By: Essie Izquierdo on 02-04-2024 MCH (RBC) [Entitic mass] MCH [Entitic mass] by Automated count 27.5-35.2 [facility] MCH [Entitic mass] by Automa saul countOrdered By: Essie Izquierdo on 02-04-2024 MCH (RBC) [Entitic mass] 33.5 pg Normal 27.5-35.2 [facility] Comment on above: Performed By: #### C BC, B12, BMP #### [facility] [address] [place] [address] MCHC Auto (RBC) [Mass/Vol]Or dered By: Essie Camargoverson on 02-04-2024 MCHC (RBC) [Mass/Vol] 34.3 g/dL 32.5-35.6 [facility] MCHC (RBC) [Mass/Vol] MCHC [Mass/volume] by Automated count 32.5-35.6 [facility] MCV Auto (RBC) [Entitic vol] Ordered By: Essie Camargoverson on 02-04-2024 MCV (RBC) [Entitic vol] MCV [Entitic vol ume] by Automated count 83.5-101 [facility] MCV [Entitic volume] by Auto mated countOrdered By: Essie Izquierdo on 02-04-2024 MCV (RBC) [Entitic vol] 97.7 fL Normal 83.5-101 [facility] Comment on above: Performed By: #### C BC, B12, BMP #### [facility] [address] Monocytes Auto (Bld) [#/Vol] Ordered By: Essie Izquierdo on 02-04-2024 Monocytes (Bld) [#/Vol] Automated blood monocyte count 0.0-0.8 [facility] Monocytes/100 WBC Auto (Bld) Ordered By: Essie Izquierdo on 02-04-2024 Monocytes/100 WBC (Bld) Automated monocyte % . [facility] Neutrophils Auto (Bld) [#/Vo l]Ordered By: Essie Izquierdo on 02-04-2024 Neutrophils (Bld) [#/Vol] Neutrophils [#/volume] in Blood by Automated count 1.8-7.7 [facility] Neutrophils [#/volume] in Bl ood by Automated countOrdered By: Essie Toribio on 02-04-2024 Neutrophils (Bld) [#/Vol] 4.1 10*3/uL Normal 1.8-7.7 [facility] Comment on above: Performed By: #### C BC, B12, BMP #### [facility] [address] Neutrophils/100 WBC Auto (Bl d)Ordered By: Essie Izquierdo on 02-04-2024 Neutrophils/100 WBC (Bld) Automated neutrophil % . [facility] No Panel InformationOrdered By: Essie Izquierdo on 02-04-2024 Estimated GFR (CKD-EPI) > 60.0 mL/Min [facility] Creatinine Clearance (Chem N/A [facility] Nucleated erythrocytes [Pres ence] in Blood by Automated countOrdered By: Essie Izquierdo on 02-04-2024 Nucleated RBC Auto Ql (Bld) 0.1 /100{WBC} 0-0.5 [facility] Nucleated RBC Auto Ql (Bld) Nucleated erythrocytes [Presence] in Blood by Automated count 0-0.5 [facility] Platelet mean volume Auto (B ld) [Entitic vol]Ordered By: Essie Izquierdo on 02-04-2024 Platelet mean volume (Bld) [Entitic vol] Platelet mean volume [Entitic volume] in Blood by Automated count 6.6-10.1 [facility] Platelet mean volume [Entiti c volume] in Blood by Automated countOrdered By: Essie Izquierdo on 02-04-2024 Platelet mean volume (Bld) [Entitic vol] 9.4 fL Normal 6.6-10.1 [facility] Comment on above: Performed By: #### C CLAUDIO, B12, BMP #### [facility] [address] Platelets Auto (Bld) [#/Vol] Ordered By: Essie Izquierdo on 02-04-2024 Platelets (Bld) [#/Vol] Platelets [#/vol ume] in Blood by Automated count 150-450 [facility] Platelets [#/volume] in Bloo d by Automated countOrdered By: Essie Toribio on 02-04-2024 Platelets (Bld) [#/Vol] 192 10*3/uL Normal 150-450 [facility] Comment on above: Performed By: #### C BC, B12, BMP #### [facility] [address] [place] [address] Potassium [Moles/volume] in Serum or PlasmaOrdered By: Essie Izquierdo on 02-04-2024 Potassium [Moles/Vol] 4.3 mmol/L Normal 3.5-5.1 [facility] Comment on above: Performed By: #### C CLAUDIO B12, BMP #### [facility] [address] Potassium [Moles/Vol] Potassium [Moles/volume] in Serum or Plasma 3.5-5.1 [facility] RBC Auto (Bld) [#/Vol]Ordere d By: Essie Izquierdo on 02-04-2024 RBC (Bld) [#/Vol] Erythrocytes [#/volume] in Blood by Automated count 3.90-5.60 [facility] Serum or plasma anion gap de terminationOrdered By: Essie Izquierdo on 02-04-2024 Anion gap [Moles/Vol] 11.0 mmol/L Normal 6.0-15.0 [facility] Comment on above: Performed By: #### C CLAUDIO B12, BMP #### [address] Anion gap [Moles/Vol] Serum or plasma an ion gap determination 6.0-15.0 [facility] Sodium [Moles/volume] in Ser um or PlasmaOrdered By: Essie Izquierdo on 02-04-2024 Sodium [Moles/Vol] 140 mmol/L Normal 136-145 [facility] Comment on above: Performed By: #### C CLAUDIO B12, BMP #### [facility] [address] [place] [address] [place] Sodium [Moles/Vol] Sodium [Moles/volume ] in Serum or Plasma 136-145 [facility] Urea nitrogen [Mass/volume] in Serum or PlasmaOrdered By: Essie Toribio on 02-04-2024 Urea nitrogen [Mass/Vol] 20 mg/dL Normal 7-25 [facility] Comment on above: Performed By: #### C BC, B12, BMP #### [facility] [address] [place] [address] [place] Urea nitrogen [Mass/Vol] Urea nitrogen [Mass/volume] in Serum or Plasma 7-25 [facility] Vitamin B12 ser/plasOrdered By: Essie Izquierdo on 02-04-2024 Cobalamin (Vitamin B12) [Mass/Vol] 224 pg/mL Normal 180-914 [facility] Comment on above: Result Comment: PERF ORMED BY: [place] [id number] PATHOLOGIST [employer] VICE PRESIDENT KENNY SOLITARIO M.D. Performed By: #### C BC, B12, BMP #### [address] Cobalamin (Vitamin B12) [Mass/Vol] Vitamin B12 ser/plas 180-914 [facility] WBC Auto (Bld) [#/Vol]Ordere d By: Essie Izquierdo on 02-04-2024 WBC (Bld) [#/Vol] Leukocytes [#/volume ] in Blood by Automated count 4.1-10.5 [facility] XR Pelvis APon 07-06-2022 IMPRESSION: Intact right hip arthroplasty. Increased heterotopic ossification. [employer]: TAPAN Transcribe Date/Time: Jul 06 2022 9:58A Dictated by : GORDO ANDRE MD This examination was interpreted and the report reviewed and electronically signed by: GORDO ANDRE MD on Jul 06 2022 9:59AM [facility] DIVISION OF RADIOLOGY * * *Final Report* [...] no bony erosions. DIVISION OF RADIOLOGY Provider, [facility] - 07/06/2022 * * *Final Report* * [...] Intact right hip arthroplasty. Increased heterotopic ossification. [employer]: PSCB Transcribe Date/Time: Jul 06 2022 9:58A Dictated by : GORDO ANDRE MD This examination was interpreted and the report reviewed and electronically signed by: GORDO ANDRE MD on Jul 06 2022 9:59AM EST [facility] Radiology Study observation (narrative) [facility] XR Pelvis APOrdered By: Ccf Provider on 07-06-2022 [facility] Office Visit (Cardiology)on 04-10-2022 Follow-up visit [...] Former smoker Tobacco Use Screening; Status:Complete; Done: [id number] Patient Instructions Please bring all medicines, vitamins, [...] Recorded: 10Apr2022 11:29AM Heart Rate68, R Radial Fvqnycdn733, RUE, Sitting Kjytvotog63, RUE, Sitting Height5 ft 11 in Kggqro787 lb BMI Odrqvnpxla89.8 kg/m2 BSA Calculated2.23 Tobacco Useb) No PHQ-2 #1. Over the last 2 weeks have you felt down, depressed or hopeless? (If yes, answer PHQ-9 below)No PHQ (more content not included)... Normal [facility] Tobacco Screening.on 022 Adult depression screening assessment No [facility] [employer] y 250 DO Work Phone: Fall risk assessment a) No falls within the last year [facility] [employer] y 250 DO Work Phone: Tobacco use status CPHS b) No [facility] [employer] y 250 DO Work Phone: CNOVon 01-16-2022 CNOV Office Visit (LOORRM ) MEERA Suresh ([id number]) 1950 M Date Time Provider Department 01/16/22 [...] replacement, right [Z96.641] Order(s):XR PELVIS 1V AP [[id number]] Order #: [id number] FUTURE Prescriptions as of 01/16/2022 - Amoxicillin [...] 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 Prominent developing heterotopic ossifications. [employer] Past[employer] Baker: [facility] Transcribe Date/Time: Jan 16 2022 1:35P Dictated by : LILLI BEAULIEU MD This examination was interpreted and the report reviewed and electronically signed by: LILLI BEAULIEU MD on Jan 16 2022 1:36PM EST [id number] Normal [facility] XR Pelvis APon 01-16-2022 IMPRESSION: Right hip arthroplasty without complication. Prominent developing heterotopic ossifications. [employer]: I Do Now I Don't Transcribe Date/Time: Jan 16 2022 1:35P Dictated by : LILLI BEAULIEU MD This examination was interpreted and the report reviewed and electronically signed by: LILLI BEAULIEU MD on Jan 16 2022 1:36PM EST [facility]_DO_NOT_US E_DIVISION OF RADIOLOGY * * *Final Report* [...] the prostate. ZZZ_DO_NOT_US E_DIVISION OF RADIOLOGY Provider, Nat Roberto [facility] - 01/16/2022 * * *Final Report* * [...] arthroplasty without complication. Prominent developing heterotopic ossifications. [employer]: PSCB Transcribe Date/Time: Jan 16 2022 1:35P Dictated by : LILLI BEAULIEU MD This examination was interpreted and the report reviewed and electronically signed by: LILLI BEAULIEU MD on Jan 16 2022 1:36PM EST [facility] Radiology Study observation (narrative) 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 Normal [facility] XR PELVIS 1V APon 10-29-2021 XR PELVIS [...] lumbar spine. IMPRESSION: Intact right hip arthroplasty [employer]: PSCB Transcribe Date/Time: Oct 29 2021 12:35P Dictated by : RICKY JAMISON DO This examination was interpreted and the report reviewed and electronically signed by: WOJCIECH IBARRA MD on Oct 29 2021 1:43PM EST [id number] Normal [facility] XR Pelvis APon 10-29-2021 IMPRESSION: Intact right hip arthroplasty [employer]: PSCB Transcribe Date/Time: Oct 29 2021 12:35P [...] lumbar spine. ZZZ_DO_NOT_US E_DIVISION OF RADIOLOGY Provider, [facility] - 10/29/2021 * * *Final Report* * [...] spine. IMPRESSION IMPRESSION: Intact right hip arthroplasty [employer]: TAPAN Transcribe Date/Time: Oct 29 2021 12:35P Dictated by : RICKY JAMISON DO This examination was interpreted and the report reviewed and electronically signed by: WOJCIECH IBARRA MD on Oct 29 2021 1:43PM EST [facility] Radiology Study observation (narrative) 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] 02/11/2010 Osteoarth NOS-l/leg [[id number]] 04/07/2010 Malignant neoplasm of prostate (HCC) [C61] [...] for Encounter Date Provider Department Center 10/24/2021 [id number][facility] Encounter Status:Closed by [facility] on 10/29/21 Normal [facility] Basic metabolic 2000 panelon 10-08-2021 Anion gap [Moles/Vol] 9 mmol/L Normal 9-18 [facility] Comment on above: Order Comment: Speci men Type: BLOOD SPECIMENOrdering Facility: [facility] Address: [address] [place], [place] [address] Performed By: #### 2 4321-2 ####[facility]ORYCLIA [id number] [place] [address] [place] Calcium [Mass/Vol] 8.9 mg/dL Normal 8.5-10.2 [facility] Comment on above: Order Comment: Speci men Type: BLOOD SPECIMENOrdering Facility: [facility] Address: [address] [place], [place] [address] Performed By: #### 2 4321-2 ####[facility]ATORYCLIA [id number] [place] [address] [place] Chloride [Moles/Vol] 102 mmol/L Normal 97-105 [facility] Comment on above: Order Comment: Speci men Type: BLOOD SPECIMENOrdering Facility: [facility] Address: [address] [place], [place] [address] Performed By: #### 2 4321-2 ####[facility]ORATORYIA [id number] [place] [address] [place] CO2 [Moles/Vol] 25 mmol/L Normal 22-30 [facility] Comment on above: Order Comment: Speci men Type: BLOOD SPECIMENOrdering Facility: [facility] Address: [address] [place], [place] [address] Performed By: #### 2 4321-2 ####[facility]ORYCLIA [id number] [place] [address] [place] Creatinine [Mass/Vol] 1.01 mg/dL Normal 0.73-1.22 [facility] Comment on above: Order Comment: Speci men Type: BLOOD SPECIMENOrdering Facility: [facility] Address: [address] [place], [place] [address] Performed By: #### 2 4321-2 ####[facility] LABORATORYIA [id number] [facility] [address] [place] ESTIMATED GLOMERULAR FILTRATION RATE 80 mL/min/1.73m??? Normal >=60 [facility] Comment on above: Order Comment: Jose David mina Type: BLOOD SPECIMENOrdering Facility: [facility] Address: [address] [place] [address] Result Comment: Pam mated Glomerular Filtration Rate [...] actual GFR. Performed By: #### 2 4321-2 ####[facility]ATORYCLIA [id number] [place] [address] [place] Glucose [Mass/Vol] 126 mg/dL High 74-99 [facility] Comment on above: Order Comment: Jose David mina Type: BLOOD SPECIMENOrdering Facility: [facility] Address: [address] [place] [address] Result Comment: The [place] Diabetes Association (ADA) provides guidance for cutoff [...] Standards of Medical Care in Diabetes 2016, [place] [employer]. Diabetes Care. 2016.39(Suppl 1). Performed By: #### 2 4321-2 ####[facility]ORYCLIA [id number] [facility] [address] [place] Potassium [Moles/Vol] 4.3 mmol/L Normal 3.7-5.1 [facility] Comment on above: Order Comment: Speci men Type: BLOOD SPECIMENOrdering Facility: [facility] Address: [address] [place] [address] Performed By: #### 2 4321-2 ####[facility] LABORATORYIA [id number] [address] OF [facility] Sodium [Moles/Vol] 136 mmol/L Normal 136-144 [facility] ospital Comment on above: Order Comment: Speci men Type: BLOOD SPECIMENOrdering Facility: [facility] Address: [address] [place] [address] Performed By: #### 2 4321-2 ####[facility]ITALIA [id number] [address] [place] Urea nitrogen [Mass/Vol] 22 mg/dL Normal 9-24 [facility] Comment on above: Order Comment: Speci men Type: BLOOD SPECIMENOrdering Facility: [facility] Address: [address] [place] [address] Performed By: #### 2 4321-2 ####[facility] HOS[facility]ITALIA [id number] [address] [place] CBC panel Auto (Bld)on 10-08 Erythrocyte distribution width (RBC) [Ratio] 12.3 % Normal 11.5-15.0 [facility] Comment on above: Order Comment: Speci men Type: BLOOD SPECIMENOrdering Facility: [facility] Address: [address] [place], [place] [address] Performed By: #### 5 8410-2 ####[facility] H[facility]ITALIA [id number] [address] STATES OF [facility] Hematocrit (Bld) [Volume fraction] 35.7 % Low 39.0-51.0 [facility] Comment on above: Order Comment: Speci men Type: BLOOD SPECIMENOrdering Facility: [facility] Address: [address] [place] [address] Performed By: #### 5 8410-2 ####[facility] [id number] [address] [place] Hemoglobin (Bld) [Mass/Vol] 12.2 g/dL Low 13.0-17.0 [facility] Comment on above: Order Comment: Speci men Type: BLOOD SPECIMENOrdering Facility: [facility] Address: [address] [place] [address] Performed By: #### 5 8410-2 ####[facility] [id number] [address] [place] MCH (RBC) [Entitic mass] 33.0 pg Normal 26.0-34.0 [facility] Comment on above: Order Comment: Speci men Type: BLOOD SPECIMENOrdering Facility: [facility] Address: [address] [place] [address] Performed By: #### 5 8410-2 ####[facility] [id number] [address] [place] MCHC (RBC) [Mass/Vol] 34.2 g/dL Normal 30.5-36.0 [facility] Comment on above: Order Comment: Speci men Type: BLOOD SPECIMENOrdering Facility: [facility] Address: [address] [place] [address] Performed By: #### 5 8410-2 ####[facility] [id number] [address] [place] MCV (RBC) [Entitic vol] 96.5 fL Normal 80.0-100.0 [facility] Comment on above: Order Comment: Speci men Type: BLOOD SPECIMENOrdering Facility: [facility] Address: [address] [place] [address] Performed By: #### 5 8410-2 ####[facility] [id number] [address] [place] Nucleated RBC (Bld) [#/Vol] 10*3/uL Normal <0.01 [facility] Comment on above: Order Comment: Speci men Type: BLOOD SPECIMENOrdering Facility: [facility] Address: [address] [place], [place] [address] Performed By: #### 5 8410-2 ####[facility] HOSPITALIA [id number] [place] [address] [place] Platelet mean volume (Bld) [Entitic vol] 10.8 fL Normal 9.0-12.7 [facility] Comment on above: Order Comment: Speci men Type: BLOOD SPECIMENOrdering Facility: [facility] Address: [address] [place], [place] [address] Performed By: #### 5 8410-2 ####[facility]ITALIA [id number] [place] [address] [place] Platelets (Bld) [#/Vol] 235 10*3/uL Normal 150-400 [facility] Comment on above: Order Comment: Speci men Type: BLOOD SPECIMENOrdering Facility: [facility] Address: [address] [place], [place] [address] Performed By: #### 5 8410-2 ####[facility]ITALIA [id number] [place] [address] [place] RBC (Bld) [#/Vol] 3.70 10*6/uL Low 4.20-6.00 [facility] Comment on above: Order Comment: Speci men Type: BLOOD SPECIMENOrdering Facility: [facility] Address: [address] [place], [place] [address] Performed By: #### 5 8410-2 ####[facility]ITALIA [id number] [place] [address] [place] WBC (Bld) [#/Vol] 16.82 10*3/uL High 3.70-11.00 [facility] Comment on above: Order Comment: Speci men Type: BLOOD SPECIMENOrdering Facility: [facility] Address: [address] [place], [place] [address] Performed By: #### 5 8410-2 ####[facility] [id number] [facility] [address] [facility] CNDSon 10-08-2021 [facility] HNO ID: [id number] Author: NELSON Kay Service: Orthopaedic Surgery Author Type: Physician Annual Giving Director Type: Discharge Summary Filed: 10/08/2021 11:14 AM [...] Dept Phone 10/29/2021 9:00 AM [facility] [phone] 11/07/2021 12:00 PM GORDO NOVA [phone] SIGNATURE: NELSON Kay PATIENT NAME: Meera Mckoy DATE: 10/08/21 TIME: 9:05 AM [facility] NURSING PROGon 10-08-2021 NURSING PROG HNO ID: [id number] Author: Dian Torres RN Service: ? Author Type: Registered Nurse Type: Nursing Progress Note Filed: 10/08/2021 4:39 AM Note Text: Nursing Progress Note Patient Name: Meera Mckoy Patient Location[place] [address] [address] __ Daily Note:Pt OOB with assist and a walker X3. Up to the bathroom X2. Ambulated to the end of the hallway and back X2. This note was completed by: Dian Torres [facility] THERAPY NTon 10-08-2021 THERAPY NT HNO ID: [id number] Author: Yuki Whitman OT/Henrik Service: ? Author Type: Occupational Therapist Type: Therapy (PT/OT/Speech/Resp) Filed: 10/08/2021 12:18 PM Note Text: Occupational Therapy Evaluation SERVICE DATE: 10/08/2021 SERVICE TIME: 1051 to 1200 ROOM: [place] [address] Patient cleared to PR from OT standpoint. 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 Given info to order sock aid. Spouse [...] (ADL);General symptoms and signs-other Interventions Provided: Evaluation;Self Penitentiary Management (30422) $ Evaluation-Low (46168) Billed Units: 1 unit Self Penitentiary Management (38127) Treatment Minutes: 54 $ Self Penitentiary Management (94257) Billed Units: 4 units Training AND education [...] 54 Skilled (more content not included)... Normal [facility] THERAPY NT HNO ID: [id number] Author: Damari Ordoñez PT Service: Physical Therapy Author Type: Physical Therapist Type: Therapy (PT/OT/Speech/Resp) Filed: 10/08/2021 10:53 AM Note Text: Physical Therapy Treatment SERVICE DATE: 10/08/2021 SERVICE TIME: 0957 to 1040 ROOM: [place] [address] Recommended Discharge Disposition: Outpatient Physical Therapy Recommended [...] lilia, cueing to correct forward trunk flexion) -M: 7: Walk 25 feet or more Learning/Educational [...] gait and mobility-other Interventions Provided: Therapeutic Exercise (99051);Therapeutic Activity (84291);Gait Training (83961) Therapeutic Exercise (57768) Treatment Minutes: 15 $ Therapeutic Exercise (34590) Billed Units: 1 unit Review of written [...] crossing legs (more content not included)... Normal [facility] ANES POSTPROC EVALon 022 ANES POSTPROC EVAL HNO ID: [id number] Author: Arnulfo Bianchi MD Service: Anesthesiology Author Type: Physician Type: Anesthesia Postprocedure Evaluation Filed: 10/07/2021 12:48 PM Note Text: POST ANESTHESIA EVALUATION NOTE : 1950 Procedure Summary Date: 10/07/21 Room / Location: AV OR03 / AV OR Anesthesia Start: 916 Anesthesia Stop: 1206 Procedure: ARTHROPLASTY REPLACE JOINT TOTAL HIP (Right [...] October 07, 2021 TIME: 12:48 PM CSN: [id number] [facility] ANES PRE-OPon 10-07-2021 ANES PRE-OP HNO ID: [id number] Author: Arnulfo Bianchi MD Service: Anesthesiology Author Type: Physician Type: Anesthesia Preprocedure Evaluation Filed: 10/07/2021 8:27 AM Note Text: ANESTHESIOLOGY DAY OF SURGERY NOTE : 1950 Procedure Information Date/Time: 10/07/21 0945 Procedure: ARTHROPLASTY REPLACE JOINT TOTAL HIP (Right Hip) Location: OR03 / OR Surgeons: Gordo Nova MD Estimated [...] and consent discussed: yes. Patient / Responsible Republican agrees to proceed: yes Patient / Surrogate [...] October 07, 2021 TIME: 8:27 AM CSN: [id number] [facility] CONFIRM BLOOD TYPEon 022 ABO O [facility] Comment on above: Order Comment: Speci men Type: BLOOD SPECIMENOrdering Facility: [facility] Address: [address] [place] [address] Performed By: #### C ONABO ####[facility] [id number] [address] Rh Nom (Bld) Positive [facility] l Comment on above: Order Comment: Speci men Type: BLOOD SPECIMENOrdering Facility: [facility] Address: [address] [place] [address] Performed By: #### C ONABO ####[facility] [id number] [address] OPERATIVE NOon 10-07-2021 OPERATIVE NO HNO ID: [id number] Author: Gordo Nova MD Service: Orthopaedic Surgery Author Type: Physician Type: Operative Report Filed: 10/07/2021 11:32 AM Note Text: [facility] OPERATIVE REPORT PATIENT NAME: Meera Mckoy AGE: [age] year old LOG ID: [id number] Surgery Date: 10/07/2021 SURGEON: Gordo Nova MD SOD STRIPPER: Lorna Ngo PA-C, SA, her assistance consisted [...] banked allogenic blood if medically necessary. IMPLANTS: Book A Boat Orthopaed[employer] Total Hip System SIZE TYPE Acetabulum [...] * I (more content not included)... Normal [facility] THERAPY [facility] 10-07-2021 THERAPY NT HNO ID: [id number] Author: Damari Ordoñez PT Service: Physical Therapy Author Type: Physical Therapist Type: Therapy (PT/OT/Speech/Resp) Filed: 10/07/2021 5:26 PM Note Text: Physical Therapy Evaluation SERVICE DATE: 10/07/2021 SERVICE TIME: 1633 to 1714 ROOM: [place] [address] Recommended Discharge Disposition: Outpatient Physical Therapy Recommended [...] Ana Lilia decreased;Step length decreased;Flexed trunk posture [facility]: 7: Walk 25 feet or more Learning/Educational [...] gait and mobility-other Interventions Provided: Evaluation;Therapeutic Exercise (33537);Gait Training (58399) $ Evaluation-Low (52496) Billed Units: 1 unit Therapeutic Exercise (31062) Treatment Minutes: 15 $ Therapeutic Exercise (96957) Billed Units: 1 unit Pt instructed in [...] verbalized understand (more content not included)... Normal [facility] XR PELVIS 1V APon 10-07-2021 XR PELVIS [...] IMPRESSION: STATUS POST RIGHT TOTAL HIP REPLACEMENT. Bread And Pastry Baker: TAPAN Transcribe Date/Time: Oct 07 2021 12:45P Dictated by : LISETH MAN MD This examination was interpreted and the report reviewed and electronically signed by: LISETH MAN MD on Oct 07 2021 12:46PM EST [id number] [facility] SARS-CoV-2 RNA Resp Ql CHIRAG+p ruy 10-04-2021 SARS-CoV-2 (COVID-19) RNA CHIRAG+probe Ql (Resp) COVID 19 RESULT: SARS-CoV-2 (Agent of COVID-19) Not Detected by RT-PCR or equivalent method. This test was developed and its performance characteristics determined by [facility]'s [facility] [place]. This test has been authorized by FDA under an Emergency Use Authorization (EUA). This test has been validated in accordance with the FDA's Guidance Document Policy for Diagnostics Testing in Laboratories Certified to Perform High Complexity Testing under CLIA prior to Emergency use Authorization for Coronavirus Disease 2019 during the Public Health Emergency issued on August 12, 2019. Test performed by [facility], [facility] [place], [address] [place] [address]. Normal [facility] Comment on above: Performed By: #### 9 4500-6 ####[facility] [id number] [place] [address] [place] Comprehensive Metabolic Pane rufino 09-26-2021 Albumin [Mass/Vol] 4.6 g/dL Normal 3.6-5.1 [place] Comment on above: Performed By: #### C MP #### [facility] [address], [place] [id number] Albumin/Globulin [Mass ratio] 2.6 {ratio} High 1.0-2.5 [facility] Specialist Comment on above: Performed By: #### C MP #### [facility] [address], [place] [id number] ALP [Catalytic activity/Vol] 79 U/L Normal 40-129 [facility] [employer] Sergeant Comment on above: Performed By: #### C MP #### [facility] [address], [place] [id number] ALT [Catalytic activity/Vol] 26 U/L Normal 9-46 [facility] Comment on above: Result Comment: 05/14 Female reference range changed. Performed By: #### C MP #### [facility] [address], [place] [id number] Anion gap [Moles/Vol] 20 mmol/L Normal 12-20 [facility] Comment on above: Result Comment: Effe ctive 06/19/2019 reference range changed. Performed By: #### C MP #### [facility] [address], [place] [id number] AST [Catalytic activity/Vol] 24 U/L Normal 10-40 [facility] Comment on above: Performed By: #### C MP #### [facility] [address], [place] [id number] Bilirubin [Mass/Vol] 0.69 mg/dL Normal 0.30-1.20 [facility] Comment on above: Performed By: #### C MP #### [facility] [address], [place] [id number] BUN/CREA 26 Ratio High 6-22 [facility] Comment on above: Performed By: #### C MP #### [facility] [address], [place] [id number] Calcium [Mass/Vol] 10.1 mg/dL Normal 8.6-10.2 [facility] Comment on above: Performed By: #### C MP #### [facility] [address], [place] [id number] Chloride [Moles/Vol] 100 mmol/L Normal 98-107 [facility] Comment on above: Performed By: #### C MP #### [facility] [address], [place] [id number] CO2 [Moles/Vol] 22 mmol/L Normal 20-31 [facility] Comment on above: Performed By: #### C MP #### [facility] [address], [place] [id number] Creatinine [Mass/Vol] 0.9 mg/dL Normal 0.7-1.4 [facility] Comment on above: Performed By: #### C MP #### [facility] [address], [place] [id number] eGFRAA 96 mL/min/1.73m2 Normal >60 [facility] Specialist Comment on above: Performed By: #### C MP #### [facility] [address], [place] [id number] eGFRNAA 79 mL/min/1.73m2 Normal >60 [facility] Specialist Comment on above: Performed By: #### C MP #### [facility] [address], [place] [id number] Globulin (S) [Mass/Vol] 1.8 g/dL Low 1.9-3.7 [facility] Comment on above: Performed By: #### C MP #### [facility] [address], [place] [id number] Glucose [Mass/Vol] 88 mg/dL Normal 65-99 [facility] Specialist Comment on above: Result Comment: For FASTING Glucose --- ADA reference ranges: Normal 65-99 mg/dl Prediabetes 100-125 Diabetes >/= 126 Performed By: #### C MP #### [facility] [address], [place] [id number] Potassium [Moles/Vol] 4.4 mmol/L Normal 3.5-5.5 [facility] Comment on above: Performed By: #### C MP #### [facility] [address], [place] [id number] Protein [Mass/Vol] 6.4 g/dL Normal 6.1-8.1 [facility] Specialist Comment on above: Performed By: #### C MP #### [facility] [address], [place] [id number] Sodium [Moles/Vol] 137 mmol/L Normal 135-146 [facility] Specialist Comment on above: Performed By: #### C MP #### [facility] [address], [place] [id number] Urea nitrogen [Mass/Vol] 24 mg/dL Normal 7-25 [facility] Specialist Comment on above: Performed By: #### C MP #### [facility] [address], [place] [id number] Hemoglobin A1Con 09-26-2021 EAG 105.41 Normal [facility] Specialist Comment on above: Performed By: #### A 1C #### [facility] [address], [place] [id number] HbA1c (Bld) [Mass fraction] 5.3 % Normal 4.0-6.0 [facility] [employer] Sergeant Comment on above: Performed By: #### A 1C #### [facility] [address], [place] [id number] Microalbumin (with Creat)on 09-26-2021 mALB <1.2 Low [facility] Specialist Comment on above: Result Comment: Unab le to calculate mALB/Crea ratio, mALB is <1.2 mg/dL mALB reference range not established. Performed By: #### m ALBC #### [facility] [address], [place] [id number] UCREA 148 mg/dL Normal 39-259 [facility] [employer] Sergeant Comment on above: Performed By: #### m ALBC #### [facility] [address], [place] [id number] Q - URINALYSIS,COMPLETEon Appearance (U) CLEAR Normal CLEAR [facility] Specialist Comment on above: Order Comment: [facility] performed at: [facility], [employer] [facility], [address] , [address] [place] [address], [phone], Hoist Cylinder Loader: Ottoniel Best MD [facility] Date/Time: [facility] Results Received Date/Time: [facility] Reported Date/Time: Performed By: #### 3 4F #### [facility] Default [address] [place] [address] BACTERIA NONE SEEN Normal NONE SEEN [facility] [employer] Sergeant Comment on above: Order Comment: [facility] performed at: [facility], [employer] [facility], [address] , [address] [place] [address], [phone], Hoist Cylinder Loader: Ottoniel Best MD [facility] Date/Time: [facility] Results Received Date/Time: [facility] Reported Date/Time: Performed By: #### 3 4F #### [facility] Default [address] [place] [address] Bilirubin Ql (U) Negative Normal NEGATIVE [facility] Specialist Comment on above: Order Comment: [facility] performed at: [facility], [employer] [facility], [address] , [address] [place] [address], [address] [place] [address], Hoist Cylinder Loader: Ottoniel Best MD [facility] Date/Time: [facility] Results Received Date/Time: [facility] Reported Date/Time: Performed By: #### 3 4F #### [facility] [address] [place] [address] Color (U) YELLOW Normal YELLOW [facility] [employer] Sergeant Comment on above: Order Comment: [facility] performed at: [facility], [employer] [facility], [address] , [address] [place] [address], [address] [place] [address], Hoist Cylinder Loader: Ottoniel Best MD [facility] Date/Time: [facility] Results Received Date/Time: [facility] Reported Date/Time: Performed By: #### 3 4F #### [facility] Default [address] [place] [address] Glucose Ql (U) Negative Normal NEGATIVE [facility] [employer] Sergeant Comment on above: Order Comment: [facility] performed at: [facility], [employer] [facility], [address] , [address] [place] [address], [address] [place] [address], Hoist Cylinder Loader: Ottoniel Best MD [facility] Date/Time: [facility] Results Received Date/Time: [facility] Reported Date/Time: Performed By: #### 3 4F #### [facility] [address] [place] [address] HYALINE CAST NONE SEEN Normal NONE SEEN [facility] [employer] Sergeant Comment on above: Order Comment: [facility] performed at: [facility], [employer] [facility], [address], [address] [place] [address], [address] [place] [address], Hoist Cylinder Loader: Ottoniel Best MD [facility] Date/Time: [facility] Results Received Date/Time: [facility] Reported Date/Time: Performed By: #### 3 4F #### [facility] Default [address] [place] [address] Ketones Ql (U) Negative Normal NEGATIVE [facility] [employer] Sergeant Comment on above: Order Comment: [facility] performed at: [facility], [employer] [facility], [address] , [address] [place] [address], [address] [place] [address], Hoist Cylinder Loader: Ottoniel Best MD [facility] Date/Time: [facility] Results Received Date/Time: [facility] Reported Date/Time: Performed By: #### 3 4F #### [facility] [address] [place] [address] Leukocyte esterase Test strip Ql (U) Negative Normal NEGATIVE [facility] [employer] Sergeant Comment on above: Order Comment: [facility] performed at: [employer], [employer] [facility], [address] , [address] [place] [address], [address] [place] [address], Hoist Cylinder Loader: Ottoniel Best MD [facility] Date/Time: [facility] Results Received Date/Time: [facility] Reported Date/Time: Performed By: #### 3 4F #### [facility] [address] [place] [address] Nitrite Ql (U) Negative Normal NEGATIVE [facility] [employer] Sergeant Comment on above: Order Comment: [facility] performed at: [employer], [employer] [facility], [address], [address] [place] [address], [address] [place] [address], Hoist Cylinder Loader: Ottoniel Best MD [facility] Date/Time: [facility] Results Received Date/Time: [facility] Reported Date/Time: Performed By: #### 3 4F #### [facility] [address] [place] [address] OCCULT BLOOD Negative Normal NEGATIVE [facility] [employer] Sergeant Comment on above: Order Comment: [facility] performed at: [employer], [employer] [facility], [address] [facility], [address] [place] [address], [address] [place] [address], Hoist Cylinder Loader: Ottoniel Best MD [facility] Date/Time: [facility] Results Received Date/Time: [facility] Reported Date/Time: Performed By: #### 3 4F #### [facility] Default [address] [place] [address] pH (U) 5.5 [pH] Normal 5.0-8.0 [facility] [employer] Sergeant Comment on above: Order Comment: [facility] performed at: [employer], [employer] [facility], [address] [facility], [address] [place] [address], [address] [place] [address], Hoist Cylinder Loader: Ottoniel Best MD [facility] Date/Time: [facility] Results Received Date/Time: [facility] Reported Date/Time: Performed By: #### 3 4F #### [facility] [address] [place] [address] Protein Ql (U) Negative Normal NEGATIVE [facility] [employer] Sergeant Comment on above: Order Comment: [facility] performed at: [employer], [employer] [facility], [address] [facility], [address] [place] [address], [address] [place] [address], Hoist Cylinder Loader: Ottoniel Best MD [facility] Date/Time: [facility] Results Received Date/Time: [facility] Reported Date/Time: Performed By: #### 3 4F #### [facility] Default [address] [place] [address] RBC NONE SEEN Normal < OR = 2 [facility] [employer] Sergeant Comment on above: Order Comment: [facility] performed at: [employer], [employer] [facility], [address] [facility], [address] [place] [address], [address] [place] [address], Hoist Cylinder Loader: Ottoniel Best MD [facility] Date/Time: [facility] Results Received Date/Time: [facility] Reported Date/Time: Performed By: #### 3 4F #### [facility] Default [address] [place] [address] Specific gravity (U) [Rel density] 1.022 Normal 1.001-1.035 [facility] Specialist Comment on above: Order Comment: [facility] performed at: [employer], [employer] [facility], [address] [place] [address], [address] [place] [address], [address] [place] [address], Hoist Cylinder Loader: Ottoniel Best MD [facility] Date/Time: [facility] Results Received Date/Time: [facility] Reported Date/Time: Performed By: #### 3 4F #### [facility] Default [address] [place] [address] SQUAMOUS EPITHELIAL CELLS NONE SEEN Normal < OR = 5 [facility] Specialist Comment on above: Order Comment: [facility] performed at: [employer], [employer] [facility], [address] [place] [address], [address] [place] [address], [address] [place] [address], Hoist Cylinder Loader: Ottoniel Best MD [facility] Date/Time: [facility] Results Received Date/Time: [facility] Reported Date/Time: Performed By: #### 3 4F #### [facility] Default [address] [place] [address] WBC NONE SEEN Normal < OR = 5 [facility] Specialist Comment on above: Order Comment: [facility] performed at: [employer], [employer] [facility], [address] [place] [address], [address] [place] [address], [address] [place] [address], Hoist Cylinder Loader: Ottoniel Best MD [facility] Date/Time: [facility] Results Received Date/Time: [facility] Reported Date/Time: Performed By: #### 3 4F #### [facility] Default [address] [place] [address] Bacteria Ur Culton 2 Bacteria identified Cx Nom (U) CULTURE, URINE: No growth (<1,000 CFU/ml) Normal [facility] Comment on above: Performed By: #### 6 30-4 ####[facility] LABCLIA [id number] [place] [address] [place] Basic metabolic 2000 panelon 09-10-2021 Anion gap [Moles/Vol] 10 mmol/L Normal 9-18 [facility] Comment on above: Order Comment: Speci men Type: BLOOD SPECIMENOrdering Facility: [facility] Address: [address] [place] [address] Performed By: #### 2 4321-2 ####[facility] LABCLIA [id number] [place] [address] [place] Calcium [Mass/Vol] 10.0 mg/dL Normal 8.5-10.2 [facility] Comment on above: Order Comment: Speci men Type: BLOOD SPECIMENOrdering Facility: [facility] Address: [address] [place], [place] [address] Performed By: #### 2 4321-2 ####[facility] LABCLIA [id number] [place] [address] [place] Chloride [Moles/Vol] 101 mmol/L Normal 97-105 [facility] Comment on above: Order Comment: Speci men Type: BLOOD SPECIMENOrdering Facility: [facility] Address: [address] [place] [phone] Performed By: #### 2 4321-2 ####[facility] LABCLIA [id number] [place] [id number] [place] CO2 [Moles/Vol] 27 mmol/L Normal 22-30 [facility] Comment on above: Order Comment: Speci men Type: BLOOD SPECIMENOrdering Facility: [facility] Address: [address] [place] [address] Performed By: #### 2 4321-2 ####[facility] LABCLIA [id number] [place] [address] [place] Creatinine [Mass/Vol] 1.12 mg/dL Normal 0.73-1.22 [facility] Comment on above: Order Comment: Jose David mina Type: BLOOD SPECIMENOrdering Facility: [facility] Address: [address] [place] [address] Performed By: #### 2 4321-2 ####[facility] LABCLIA [id number] [address] OF [facility] ESTIMATED GLOMERULAR FILTRATION RATE 70 mL/min/1.73m??? Normal >=60 [facility] Comment on above: Order Comment: Jose David mina Type: BLOOD SPECIMENOrdering Facility: [facility] Address: [address] [place] [address] Result Comment: Pam mated Glomerular Filtration Rate [...] actual GFR. Performed By: #### 2 4321-2 ####[facility]CLIA [id number] [place] [address] [place] Glucose [Mass/Vol] 96 mg/dL Normal 74-99 [facility] Comment on above: Order Comment: Jose David mina Type: BLOOD SPECIMENOrdering Facility: [facility] Address: [address] [place] [address] Result Comment: The [place] Diabetes [employer] (ADA) provides guidance for cutoff [...] Standards of Medical Care in Diabetes 2016, [place] [employer]. Diabetes Care. 2016.39(Suppl 1). Performed By: #### 2 4321-2 ####[facility]CLIA [id number] [place] [address] [place] Potassium [Moles/Vol] 4.6 mmol/L Normal 3.7-5.1 [facility] Comment on above: Order Comment: Speci men Type: BLOOD SPECIMENOrdering Facility: [facility] Address: [address] [place] [address] Performed By: #### 2 4321-2 ####[facility] LABIA [id number] [address] [place] Sodium [Moles/Vol] 138 mmol/L Normal 136-144 [facility] Comment on above: Order Comment: Speci men Type: BLOOD SPECIMENOrdering Facility: [facility] Address: [address] [place] [address] Performed By: #### 2 4321-2 ####[facility] LABIA [id number] [address] [place] Urea nitrogen [Mass/Vol] 19 mg/dL Normal 9-24 [facility] Comment on above: Order Comment: Speci men Type: BLOOD SPECIMENOrdering Facility: [facility] Address: [address] [place], [place] [address] Performed By: #### 2 4321-2 ####[facility] LABIA [id number] [place] [address] [place] CBC W Auto Differential pane l (Bld)on 09-10-2021 Basophils (Bld) [#/Vol] 0.04 10*3/uL Normal <0.11 [facility] Comment on above: Order Comment: Speci men Type: BLOOD SPECIMENOrdering Facility: [facility] Address: [address] [place] [address] Performed By: #### 5 7021-8 ####[facility]CLIA [id number] [address] [place] Basophils/100 WBC (Bld) 0.6 % Normal [place] Comment on above: Order Comment: Speci men Type: BLOOD SPECIMENOrdering Facility: [facility] Address: [address] [place], [place] [address] Performed By: #### 5 7021-8 ####[facility]CLIA [id number] [place] [address] [place] Differential cell count method Nom (Bld) Auto Normal [facility] Comment on above: Order Comment: Speci men Type: BLOOD SPECIMENOrdering Facility: [facility] Address: [address] [place] [address] Performed By: #### 5 7021-8 ####[facility] LABCLIA [id number] [address] [place] Eosinophils (Bld) [#/Vol] 0.27 10*3/uL Normal <0.46 [facility] Comment on above: Order Comment: Speci men Type: BLOOD SPECIMENOrdering Facility: [facility] Address: [address] [place], [place] [address] Performed By: #### 5 7021-8 ####[facility] LABCLIA [id number] [address] OF [facility] Eosinophils/100 WBC (Bld) 3.8 % Normal [facility] Comment on above: Order Comment: Speci men Type: BLOOD SPECIMENOrdering Facility: [facility] Address: [address] [place], [place] [address] Performed By: #### 5 7021-8 ####[facility] LABCLIA [id number] [place] [address] [place] Erythrocyte distribution width (RBC) [Ratio] 12.8 % Normal 11.5-15.0 [facility] Comment on above: Order Comment: Speci men Type: BLOOD SPECIMENOrdering Facility: [facility] Address: [address] [place], [place] [address] Performed By: #### 5 7021-8 ####[facility] LABIA [id number] [place] [address] [place] Hematocrit (Bld) [Volume fraction] 43.5 % Normal 39.0-51.0 [facility] Comment on above: Order Comment: Speci men Type: BLOOD SPECIMENOrdering Facility: [facility] Address: [address] [place], [place] [address] Performed By: #### 5 7021-8 ####[facility] LABIA [id number] [address] [place] Hemoglobin (Bld) [Mass/Vol] 14.4 g/dL Normal 13.0-17.0 [facility] Comment on above: Order Comment: Speci men Type: BLOOD SPECIMENOrdering Facility: [facility] Address: [address] [place], [place] [address] Performed By: #### 5 7021-8 ####[facility] LABIA [id number] [address] [place] IMMATURE GRAN % 0.7 % Normal [facility] Comment on above: Order Comment: Speci men Type: BLOOD SPECIMENOrdering Facility: [facility] Address: [address] [place], [place] [address] Performed By: #### 5 7021-8 ####[facility] LABIA [id number] [place] [address] [place] IMMATURE GRAN ABS 0.05 k/uL Normal <0.10 [facility] Comment on above: Order Comment: Speci men Type: BLOOD SPECIMENOrdering Facility: [facility] Address: [address] [place], [place] [address] Performed By: #### 5 7021-8 ####[facility] LABCLIA [id number] [place] [address] [place] Lymphocytes (Bld) [#/Vol] 1.20 10*3/uL Normal 1.00-4.00 [facility] Comment on above: Order Comment: Speci men Type: BLOOD SPECIMENOrdering Facility: [facility] Address: [address] [place], [place] [address] Performed By: #### 5 7021-8 ####[facility] LABCLIA [id number] [address] STATES OF [facility] Lymphocytes/100 WBC (Bld) 16.7 % Normal [facility] Comment on above: Order Comment: Speci men Type: BLOOD SPECIMENOrdering Facility: [facility] Address: [address] [place], [place] [address] Performed By: #### 5 7021-8 ####[facility] LABIA [id number] [address] [place] MCH (RBC) [Entitic mass] 32.4 pg Normal 26.0-34.0 [facility] Comment on above: Order Comment: Speci men Type: BLOOD SPECIMENOrdering Facility: [facility] Address: [address] [place] [phone] Performed By: #### 5 7021-8 ####[facility] LABCLIA [id number] [address] [place] MCHC (RBC) [Mass/Vol] 33.1 g/dL Normal 30.5-36.0 [facility] Comment on above: Order Comment: Speci men Type: BLOOD SPECIMENOrdering Facility: [facility] Address: [address] [place] [address] Performed By: #### 5 7021-8 ####[facility] LABCLIA [id number] [id number] [address] [place] MCV (RBC) [Entitic vol] 98.0 fL Normal 80.0-100.0 C [facility] Comment on above: Order Comment: Speci men Type: BLOOD SPECIMENOrdering Facility: [facility] Address: [address] [place] [address] Performed By: #### 5 7021-8 ####[facility] LABCLIA [id number] [place] [address] [place] Monocytes (Bld) [#/Vol] 0.85 10*3/uL Normal <0.87 [facility] Comment on above: Order Comment: Speci men Type: BLOOD SPECIMENOrdering Facility: [facility] Address: [address] [place] [address] Performed By: #### 5 7021-8 ####[facility] LABCLIA [id number] [address] [place] Monocytes/100 WBC (Bld) 11.9 % Normal C [facility] Comment on above: Order Comment: Speci men Type: BLOOD SPECIMENOrdering Facility: [facility] Address: [address] [place], [place] [address] Performed By: #### 5 7021-8 ####[facility] LABCLIA [id number] [place] [address] [place] Neutrophils (Bld) [#/Vol] 4.76 10*3/uL Normal 1.45-7.50 [facility] Comment on above: Order Comment: Speci men Type: BLOOD SPECIMENOrdering Facility: [facility] Address: [address] [place], [place] [address] Performed By: #### 5 7021-8 ####[facility] LABCLIA [id number] [place] [address] [place] Neutrophils/100 WBC (Bld) 66.3 % Normal [facility] Comment on above: Order Comment: Speci men Type: BLOOD SPECIMENOrdering Facility: [facility] Address: [address] [place], [place] [address] Performed By: #### 5 7021-8 ####[facility] LABIA [id number] [address] [place] Nucleated RBC (Bld) [#/Vol] 10*3/uL Normal <0.01 [facility] Comment on above: Order Comment: Speci men Type: BLOOD SPECIMENOrdering Facility: [facility] Address: [address] [place], [place] [address] Performed By: #### 5 7021-8 ####[facility] [id number] [place] [address] [place] Nucleated RBC/100 WBC (Bld) [Ratio] 0.0 /100 WBC Normal [facility] Comment on above: Order Comment: Speci men Type: BLOOD SPECIMENOrdering Facility: [facility] Address: [address] [place], [place] [address] Performed By: #### 5 7021-8 ####[facility] [id number] [place] [address] [place] Platelet mean volume (Bld) [Entitic vol] 11.2 fL Normal 9.0-12.7 [facility] Comment on above: Order Comment: Speci men Type: BLOOD SPECIMENOrdering Facility: [facility] Address: [address] [place] [phone] Performed By: #### 5 7021-8 ####[facility] LAB[facility] [id number] [place] [address] [place] Platelets (Bld) [#/Vol] 265 10*3/uL Normal 150-400 [facility] Comment on above: Order Comment: Speci men Type: BLOOD SPECIMENOrdering Facility: [facility] Address: [address] [place] [address] Performed By: #### 5 7021-8 ####[facility] LABCLIA [id number] [place] [address] [place] RBC (Bld) [#/Vol] 4.44 10*6/uL Normal 4.20-6.00 [facility] Comment on above: Order Comment: Speci men Type: BLOOD SPECIMENOrdering Facility: [facility] Address: [address] [place] [address] Performed By: #### 5 7021-8 ####[facility] LABCLIA [id number] [place] [address] [place] WBC (Bld) [#/Vol] 7.17 10*3/uL Normal 3.70-11.00 [facility] Comment on above: Order Comment: Speci men Type: BLOOD SPECIMENOrdering Facility: [facility] Address: [address] [place] [address] Performed By: #### 5 7021-8 ####[facility] LABCLIA [id number] [address] [place] CNOVon 09-10-2021 CNOV Office Visit (LOORRM ) MEERA MCKOY ([id number]) 1950 M Date Time Provider Department 09/10/21 9:30 AM [facility] [employer] During your visit today, we recorded the following information about you: Weight Height 110.7 kg 1.803 m Lorna Ngo PA-C 09/10/2021 12:03 PM Signed CONSULT ORTHOPAEDIC: HIP PRIMARY CARE PHYSICIAN: Mona Reese, DO, DO REFERRING PROVIDER: Gordo Nova [address] [address] ASSESSMENT AND PLAN: Impression: Right Hip Severe [...] which include walking 2 blocks, gardening, doing transportation project manager, participating in family 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 Normal [facility] HGB A1Con 09-10-2021 Average glucose Estimated from glycated hemoglobin (Bld) [Mass/Vol] 100 mg/dL Normal [facility] Comment on above: Order Comment: Speci men Type: BLOOD SPECIMENOrdering Facility: [facility] Address: [address] [place] [address] [place] [address] Result Comment: eAG: (Estimated average glucose) is a calculated value from HgbA1c and is community relations representative of the average blood glucose level in the last 2-3 month period. Performed By: #### H BA1C ####[facility] LABCLIA [id number] [address] STATES OF [facility] HbA1c (Bld) [Mass fraction] 5.1 % Normal 4.3-5.6 [facility] Comment on above: Order Comment: Speci men Type: BLOOD SPECIMENOrdering Facility: [facility] Address: [address] [place] [address] Result Comment: [place] ican Diabetes Association guidelines indicate that patients with HgbA1c in the range 5.7-6.4% are at increased risk for development of diabetes, and intervention by lifestyle modification may be beneficial. HgbA1c greater or equal to 6.5% is considered diagnostic of diabetes. Performed By: #### H BA1C ####[facility] LABCLIA [id number] [address] OF [facility] HISTORY PHYSICALon HISTORY PHYSICAL HNO ID: [id number] Author: Maira Doss APRN.CRITICAL CARE TRANSPORT NURSE Service: ? Author Type: Nurse Practitioner Type: [...] fevers. Neuro: No history of TIA's, stroke, WEB DESIGNER tumor, impaired sensorium, hemiplegia, paraplegia or quadraplegia. No neurological symptoms or problems. Respiratory: No history of current cough or dyspnea, or pneumonia in the past 6 weeks. No history of respiratory/pulmonary symptoms or problems. + KATTY wears CPAP Cardiovascular: Negative for Recent VA, Arrhythmia, Susana (more content not included)... Normal [facility] TYPE AND SCREEN, DAYon ABO O Normal [facility] Comment on above: Order Comment: Speci men Type: BLOOD SPECIMENOrdering Facility: [facility] Address: [address] [place] [address] Performed By: #### T SCR30 ####[facility] [id number] [place] [id number] [place] HISTORICAL AB SCR STATUS Negative Normal [facility] Comment on above: Order Comment: Speci men Type: BLOOD SPECIMENOrdering Facility: [facility] Address: [address] [place] [address] Performed By: #### T SCR30 ####[facility] BANKIA [id number] [place] [address] [place] Rh Nom (Bld) Positive Normal [facility] Comment on above: Order Comment: Speci men Type: BLOOD SPECIMENOrdering Facility: [facility] Address: [address] [place] [address] Performed By: #### T SCR30 ####[facility] [id number] [place] [address] [place] Urinalysis complete panel (U )on 09-10-2021 Bilirubin Ql (U) Negative Normal Negative [facility] Comment on above: Order Comment: Speci men Type: URINE SPECIMENOrdering Facility: [facility] Address: [address] [place] [address] Performed By: #### 2 4356-8 ####[facility] LABCLIA [id number] [address] [place] Clarity (Unsp spec) Clear Normal Clear [facility] Comment on above: Order Comment: Speci men Type: URINE SPECIMENOrdering Facility: [facility] Address: [address] [place] [address] Performed By: #### 2 4356-8 ####[facility] LABCLIA [id number] [place] [address] [place] Color (U) Straw Normal Yellow [facility] Comment on above: Order Comment: Speci men Type: URINE SPECIMENOrdering Facility: [facility] Address: [address] [place], [place] [address] Performed By: #### 2 4356-8 ####[facility] LABCLIA [id number] [place] [address] [place] Glucose Test strip (U) [Mass/Vol] Negative Normal Negative [facility] Comment on above: Order Comment: Speci men Type: URINE SPECIMENOrdering Facility: [facility] Address: [address] [place], [place] [address] Performed By: #### 2 4356-8 ####[facility] LABCLIA [id number] [place] [address] [place] Hemoglobin Ql (U) Negative Normal Negative [facility] Comment on above: Order Comment: Speci men Type: URINE SPECIMENOrdering Facility: [facility] Address: [address] [place], [place] [address] Performed By: #### 2 4356-8 ####[facility] LABCLIA [id number] [place] [address] [place] Ketones Ql (U) Negative Normal Negative [facility] Comment on above: Order Comment: Speci men Type: URINE SPECIMENOrdering Facility: [facility] Address: [address] [place], [place] [address] Performed By: #### 2 4356-8 ####[facility] LABCLIA [id number] [place] [address] [place] Leukocyte esterase Test strip Ql (U) Negative Normal Negative [facility] Comment on above: Order Comment: Speci men Type: URINE SPECIMENOrdering Facility: [facility] Address: [address] [place], [place] [address] Performed By: #### 2 4356-8 ####[facility] LABCLIA [id number] [place] [address] [place] Nitrite Ql (U) Negative Normal Negative [facility] Comment on above: Order Comment: Speci men Type: URINE SPECIMENOrdering Facility: [facility] Address: [address] [place], [place] [address] Performed By: #### 2 4356-8 ####[facility] LABCLIA [id number] [place] [address] [place] pH (U) 7.0 [pH] Normal 5.0-8.0 [facility] Comment on above: Order Comment: Speci men Type: URINE SPECIMENOrdering Facility: [facility] Address: [address] [place], [place] [address] Performed By: #### 2 4356-8 ####[facility] LABIA [id number] [place] [address] [place] Protein (U) [Mass/Vol] Negative Normal Negative [facility] Comment on above: Order Comment: Speci men Type: URINE SPECIMENOrdering Facility: [facility] Address: [address] [place], [place] [address] Performed By: #### 2 4356-8 ####[facility] LABIA [id number] [place] [address] [place] RBC LM.HPF (Urine sed) [#/Area] 0-3 /HPF Normal 0-3 /HPF [facility] Comment on above: Order Comment: Speci men Type: URINE SPECIMENOrdering Facility: [facility] Address: [address] [place], [place] [address] Performed By: #### 2 4356-8 ####[facility] LABIA [id number] [place] [address] [place] Specific gravity (U) [Rel density] 1.008 Normal 1.005-1.030 [facility] Comment on above: Order Comment: Speci men Type: URINE SPECIMENOrdering Facility: [facility] Address: [address] [place] [address] Performed By: #### 2 4356-8 ####[facility] LABIA [id number] [place] [address] [place] Urobilinogen Ql (U) Negative Normal Negative [facility] Comment on above: Order Comment: Speci men Type: URINE SPECIMENOrdering Facility: [facility] Address: [address] [place], [place] [address] Performed By: #### 2 4356-8 ####[facility] LABCLIA [id number] [place] [address] [place] WBC LM.HPF (Urine sed) [#/Area] 0-5 /HPF Normal 0-5 /HPF [facility] Comment on above: Order Comment: Speci men Type: URINE SPECIMENOrdering Facility: [facility] Address: [address] [place] [address] Performed By: #### 2 4356-8 ####[facility] LABCLIA [id number] [address] [place] CNPLanny 08-01-2021 CNPN Telephone (4CQ) MEERA MCKOY ([id number]) 1950 M Date Time Provider Department 08/01/21 GORDO NOVA 4CKade During your visit today, we recorded the following information about you: Cici Seay 08/01/2021 11:54 AM Signed Meera Mckoy called today. : 1950 Allergies: Seasonal Allergies (home) [phone] (cell) Reason for call: patient calling to inform he will be going out of town next Wednesday, 08/05 until 08/25/21 and would like to speak to provider about surgery and would like to speak to surgical aide prior to leaving. Please call patient LAKEISHA at [phone]. Patient last appointment: Visit date not found The patients preferred pharmacy has been captured for this encounter? 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] 02/11/2010 Osteoarth NOS-l/leg [TDW2514] 04/07/2010 Malignant neoplasm of prostate [C61] 04/29/2010 Urge incontinence [N39.41] 10/23/2010 Urge incontinence of urine [N39.41] 10/23/2010 BPH (benign prostatic hyperplasia) [N40.0] 06/25/2011 History of prostate cancer [Z85.46] 12/25/2011 Kidney stone [N20.0] 05/26/2016 Encounter Status:Closed by GORDO NOVA II on 08/01/21 Normal [facility] Complete Blood Count with Au to Diffon 06-26-2021 Basophils (Bld) [#/Vol] 0.02 10*3/uL Normal 0.00-0.20 [facility] Comment on above: Performed By: #### V ITD, CBCAD, CMP #### [facility] [address], [place] [id number] Basophils/100 WBC (Bld) 0.2 % [facility] Comment on above: Performed By: #### V ITD, CBCAD, CMP #### [facility] [address], [place] [id number] Eosinophils (Bld) [#/Vol] 0.14 10*3/uL Normal 0.02-0.50 [facility] Comment on above: Performed By: #### V ITD, CBCAD, CMP #### [facility] [address], [place] [id number] Eosinophils/100 WBC (Bld) 1.5 % Normal [facility] Comment on above: Performed By: #### V ITD, CBCAD, CMP #### [facility] [address], [place] [id number] Erythrocyte distribution width (RBC) [Ratio] 12.4 % Normal 11.0-15.0 [facility] Comment on above: Performed By: #### V ITD, CBCAD, CMP #### [facility] [address], [place] [id number] Hematocrit (Bld) [Volume fraction] 42.1 % Normal 38.5-50.0 [facility] Special[facility] Comment on above: Performed By: #### V ITD, CBCAD, CMP #### [facility] [address], [place] [id number] Hemoglobin (Bld) [Mass/Vol] 14.8 g/dL Normal 13.0-17.1 [facility] Comment on above: Performed By: #### V ITD, CBCAD, CMP #### [facility] [address], [place] [id number] Lymphocytes (Bld) [#/Vol] 1.0 10*3/uL Normal 0.9-3.9 [facility] Comment on above: Performed By: #### V ITD, CBCAD, CMP #### [facility] [address], [place] [id number] Lymphocytes/100 WBC (Bld) 10.2 % Normal [facility] Comment on above: Performed By: #### V ITD, CBCAD, CMP #### [facility] [address], [place] [id number] MCH (RBC) [Entitic mass] 33.1 pg High 27.0-33.0 [facility] Comment on above: Performed By: #### V ITD, CBCAD, CMP #### [facility] [address], [place] [id number] MCHC (RBC) [Mass/Vol] 35.2 g/dL Normal 32.0-36.0 [facility] Comment on above: Performed By: #### V ITD, CBCAD, CMP #### [facility] [address], [place] [id number] MCV (RBC) [Entitic vol] 94 fL Normal 80-100 [facility] Comment on above: Performed By: #### V ITD, CBCAD, CMP #### [facility] [address], [place] [id number] Monocytes (Bld) [#/Vol] 1.3 10*3/uL High 0.2-0.9 [facility] Comment on above: Performed By: #### V ITD, CBCAD, CMP #### [facility] [address], [place] [id number] Monocytes/100 WBC (Bld) 13.5 % Normal [facility] Comment on above: Performed By: #### V ITD, CBCAD, CMP #### [facility] [address], [place] [id number] Neutrophils (Bld) [#/Vol] 7.0 10*3/uL Normal 1.5-7.8 [facility] Comment on above: Performed By: #### V ITD, CBCAD, CMP #### [facility] [address], [place] [id number] Neutrophils/100 WBC (Bld) 74.0 % Normal [facility] Comment on above: Performed By: #### V ITD, CBCAD, CMP #### [facility] [address], [place] [id number] Platelet mean volume (Bld) [Entitic vol] 10.70 fL Normal 7.50-12.50 [facility] Comment on above: Performed By: #### V ITD, CBCAD, CMP #### [facility] [address], [place] [id number] Platelets (Bld) [#/Vol] 291 10*3/uL Normal 140-400 [facility] Comment on above: Performed By: #### V ITD, CBCAD, CMP #### [facility] [address], [place] [id number] RBC (Bld) [#/Vol] 4.47 10*6/uL Normal 4.20-5.80 [facility] Specialist Comment on above: Performed By: #### V ITD, CBCAD, CMP #### [facility] [address], [place] [id number] RDW-SD 43.1 fL Normal 37.0-50.0 [facility] Comment on above: Performed By: #### V ITD, CBCAD, CMP #### [facility] [address], [place] [id number] WBC (Bld) [#/Vol] 9.4 10*3/uL Normal 3.8-11.0 [facility] [employer] Comment on above: Performed By: #### V ITD, CBCAD, CMP #### [facility] [address], [place] [id number] Comprehensive Metabolic Pane [facility] 06-26-2021 Albumin [Mass/Vol] 4.7 g/dL Normal 3.6-5.1 [facility] [employer] Comment on above: Performed By: #### V ITD, CBCAD, CMP #### [facility] [address], [place] [id number] Albumin/Globulin [Mass ratio] 2.5 {ratio} Normal 1.0-2.5 [facility] Comment on above: Performed By: #### V ITD, CBCAD, CMP #### [facility] [address], [place] [id number] ALP [Catalytic activity/Vol] 77 U/L Normal 40-129 [facility] Special[facility] Comment on above: Performed By: #### V ITD, CBCAD, CMP #### [facility] [address] [facility] [facility] [place] [id number] ALT [Catalytic activity/Vol] 35 U/L Normal 9-46 [facility] Comment on above: Result Comment: 05/14 Female reference range changed. Performed By: #### V ITD, CBCAD, CMP #### [facility] [address] [facility] [place] [id number] Anion gap [Moles/Vol] 18 mmol/L Normal 12-20 [facility] Comment on above: Result Comment: Effe ctive 06/19/2019 reference range changed. Performed By: #### V ITD, CBCAD, CMP #### [facility] [address], [place] [id number] AST [Catalytic activity/Vol] 31 U/L Normal 10-40 [facility] Comment on above: Performed By: #### V ITD, CBCAD, CMP #### [facility] [address], [place] [id number] Bilirubin [Mass/Vol] 0.60 mg/dL Normal 0.30-1.20 [facility] Comment on above: Performed By: #### V ITD, CBCAD, CMP #### [facility] [address], [place] [id number] BUN/CREA 21 Ratio Normal 6-22 [facility] Comment on above: Performed By: #### V ITD, CBCAD, CMP #### [facility] [address], [place] [id number] Calcium [Mass/Vol] 9.7 mg/dL Normal 8.6-10.2 [facility] Comment on above: Performed By: #### V ITD, CBCAD, CMP #### [facility] [address] [facility] [place] [id number] Chloride [Moles/Vol] 102 mmol/L Normal 98-107 [facility] Comment on above: Performed By: #### V ITD, CBCAD, CMP #### [facility] [address] [facility] [place] [id number] CO2 [Moles/Vol] 21 mmol/L Normal 20-31 [employer] [place] [employer] Comment on above: Performed By: #### V ITD, CBCAD, CMP #### [facility] [address], [place] [id number] Creatinine [Mass/Vol] 0.9 mg/dL Normal 0.7-1.4 [facility] Specialist Comment on above: Performed By: #### V ITD, CBCAD, CMP #### [facility] [address], [place] [id number] eGFRAA 100 mL/min/1.73m2 Normal >60 [facility] Specialist Comment on above: Performed By: #### V ITD, CBCAD, CMP #### [facility] [address], [place] [id number] eGFRNAA 82 mL/min/1.73m2 Normal >60 [facility] Specialist Comment on above: Performed By: #### V ITD, CBCAD, CMP #### [facility] [address], [place] [id number] Globulin (S) [Mass/Vol] 1.9 g/dL Normal 1.9-3.7 [facility] Specialist Comment on above: Performed By: #### V ITD, CBCAD, CMP #### [facility] [address], [place] [id number] Glucose [Mass/Vol] 104 mg/dL High 65-99 [facility] Specialist Comment on above: Result Comment: For FASTING Glucose --- ADA reference ranges: Normal 65-99 mg/dl Prediabetes 100-125 Diabetes >/= 126 Performed By: #### V ITD, CBCAD, CMP #### [facility] [address], [place] [id number] Potassium [Moles/Vol] 4.5 mmol/L Normal 3.5-5.5 [facility] [employer] Comment on above: Performed By: #### V ITD, CBCAD, CMP #### [facility] [address], [place] [id number] Protein [Mass/Vol] 6.6 g/dL Normal 6.1-8.1 [facility] [employer] [facility] Comment on above: Performed By: #### V ITD, CBCAD, CMP #### [facility] [address], [place] [id number] Sodium [Moles/Vol] 136 mmol/L Normal 135-146 [facility] Comment on above: Performed By: #### V ITD, CBCAD, CMP #### [facility] [address], [place] [id number] Urea nitrogen [Mass/Vol] 20 mg/dL Normal 7-25 [facility] Comment on above: Performed By: #### V ITD, CBCAD, CMP #### [facility] [address], [place] [id number] Hemoglobin A1Con 06-26-2021 EAG 111.15 Normal [facility] Comment on above: Performed By: #### A 1C #### [facility] [address], [place] [id number] HbA1c (Bld) [Mass fraction] 5.5 % Normal 4.0-6.0 [facility] Comment on above: Performed By: #### A 1C #### [facility] [address], [place] [id number] Q - INSULIN,SERUMon 06-26-19 22 INSULIN 11.0 uIU/mL Normal [facility] Comment on above: Order Comment: [facility] Testing performed at: QPT, [employer] [facility], [address] [place] [address], [address] [place] [address], [id number], Hoist Cylinder Loader: Ottoniel Best MD [facility] Collection Date/Time: [facility] Results Received Date/Time: [facility] Reported Date/Time: Result Comment: Refe rence Range < or = 19.6 Risk: Optimal < or = 19.6 Moderate NA High >19.6 Adult cardiovascular event risk category cut points (optimal, moderate, high) are based on [employer] population data from 05/2011. This insulin assay shows strong cross-reactivity for some insulin analogs (lispro, aspart, and glargine) and much lower cross-reactivity with others (detemir, glulisine). Performed By: #### 5 61 #### [facility] Default [address] [place] [id number] Vitamin B12on 06-26-2021 Cobalamin (Vitamin B12) [Mass/Vol] 1672 pg/mL High 211-946 [facility] [employer] Sergeant Comment on above: Performed By: #### B 12 #### [facility] [address], [place] [id number] Vitamin D 25-OHon 06-26-2021 VIT D 25 OH 45 ng/ml Normal >29 [facility] [employer] Comment on above: Result Comment: Tiffany min D Status Deficiency <20 ng/mL Insufficiency 20-29 ng/mL Optimal 30-100 ng/mL Possible Toxicity >=150 ng/mL Performed By: #### V ITD, CBCAD, CMP #### [facility] [address], [place] [id number] CNOVon 06-23-2021 CNOV Office Visit (ORAVON ) MEERA MCKOY ([id number]) 1950 M Date Time Provider Department 06/23/21 11:45 AM GAVIN ELLIOTT During your visit today, we recorded the following information about you: Gavin Elliott DO 06/23/2021 11:46 AM Signed Meera Mckoy is here today at request of Dr. Gordo Nova specifically for consultation of my opinion in regards to the chief complaint listed below. Correspondence will be shared today via the [employer] electronic health record or through regular mail, where applicable. CHIEF COMPLAINT: Meera Mckoy is a 71 year old male who presents today for new evaluation of right hip. CONSULTATION NOTE Correspondence will be shared today via the [employer] electronic health record or through regular mail, [...] hip joint Informed Consent Consent Obtained: Verbal [place] Protocol A moment to CARE was completed. 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 Normal [facility] CNOVon 06-19-2021 CNOV Office Visit (LOORRM ) MEERA MCKOY ([id number]) 1950 M Date Time Provider Department 06/19/21 11:45 AM GORDO NOVA During your visit today, we recorded the following information about you: Weight Height 116.6 kg 1.803 m Gordo Nova II, MD 06/23/2021 12:59 PM Signed [facility] [address] [place], [place] [address] CLINIC NOTE Department of Orthopaedics - Katrina Nova II, M.D. NAME: MEERA MCKOY CLINIC NO.: [id number] DATE OF SERVICE: 06/19/2021 CHIEF COMPLAINT: Pain [...] large belly. X-RAY: AP weight bearing shows [id number] on the superior weightbearing portion of the right hip with degenerative arthritis throughout the joint. IMPRESSION: Severe degenerative arthritis of the right hip. RECOMMEND: 1. Weight loss - discussed intermittent fasting. 2. Patient wants to get some relief of pain before he goes to [place] in July and then is considering having a total hip done upon his return. We have suggested a hip injection by Dr. Elliott. The patient is anxious to have this done, we will schedule. We will plan on doing his hip 3 months after the hip injection. Dictated By: Gordo Nova II, M.D. Date Dictated: 06/19/2021 Date Typed: acu 06/20/2021 JOB# [id number] Gordo Nova II, MD 06/29/2021 3:13 PM Signed Addended by: GORDO NOVA II on: 06/29/2021 03:13 PM Modules accepted: Orders Loss Control Technician: Transcribed Clinic Note (osiris) ID: [id number] Author: GORDO NOVA Signed by GORDO NOVA MD on 06/23/2021 at 12:59 PM Document text: [facility] [address] [place], [place] [address] CLINIC NOTE Department of Orthopaedics - Katrina Nova II, M.D. NAME: MEERA MCKOY CLINIC NO.: [id number] DATE OF SERVICE: 06/19/2021 CHIEF COMPLAINT: Pain [...] large belly. X-RAY: AP weight bearing shows [id number] on the superior weightbearing portion of the right hip with degenerative arthritis throughout the joint. IMPRESSION: Severe degenerative arthritis of the right hip. RECOMMEND: 1. Weight loss - discussed intermittent fasting. 2. Patient wants to get some relief of pain before he goes to [place] in July and then is considering having a total hip done upon his return. We have suggested a hip injection by Dr. Elliott. The patient is anxious to have this done, we will schedule. We will plan on doing his hip 3 months after the hip injection. Dictated By: Gordo Nova II, M.D. Date Dictated: 06/19/2021 Date Typed: [facility] 06/20/2021 JOB# [id number] -- Refe (more content not included)... Normal [facility] XR HIP 3V PELV+ AP/LAT RTon 06-19-2021 [...] Severe right hip joint space narrowing with qooo-dk-cozo contact, subchondral sclerosis and marginal osteophytes. Moderate degenerative changes in the left hip. Sacroiliac joints and pubic symphysis are maintained. Incompletely assessed lower lumbar spine degenerative changes. Brachytherapy seeds project over the prostate. IMPRESSION: Severe right hip osteoarthritis. Bread And Pastry Baker: PSCB Transcribe Date/Time: Jun 19 2021 11:35A Dictated by : ABI HAWTHORNE MD This examination was interpreted and the report reviewed and electronically signed by: GORDO ANDRE MD on Jun 19 2021 12:19PM EST [id number] Normal [facility] XR Pelvis and Hip - right AP and Lateral frogon 06-19-2021 IMPRESSION: Severe right hip osteoarthritis. Bread And Pastry Baker: TAPAN Transcribe Date/Time: Jun 19 2021 11:35A Dictated by : ABI HAWTHORNE MD This examination was interpreted and the report reviewed and electronically signed by: GORDO ANDRE MD on Jun 19 2021 12:19PM [facility] DIVISION OF RADIOLOGY * * *Final Report* [...] Severe right hip joint space narrowing with fpyo-dg-jjbn contact, subchondral sclerosis and marginal osteophytes. Moderate degenerative changes in the left hip. Sacroiliac joints and pubic symphysis are maintained. Incompletely assessed lower lumbar spine degenerative changes. Brachytherapy seeds project over the prostate. DIVISION OF RADIOLOGY Provider, [facility] - 06/19/2021 * * *Final Report* * [...] Severe right hip joint space narrowing with pzud-gt-jiey contact, subchondral sclerosis and marginal osteophytes. Moderate degenerative changes in the left hip. Sacroiliac joints and pubic symphysis are maintained. Incompletely assessed lower lumbar spine degenerative changes. Brachytherapy seeds project over the prostate. IMPRESSION IMPRESSION: Severe right hip osteoarthritis. Bread [employer] Pastry Baker: TAPAN Transcribe Date/Time: Jun 19 2021 11:35A Dictated by : ABI HAWTHORNE MD This examination was interpreted and the report reviewed and electronically signed by: GORDO ANDRE MD on Jun 19 2021 12:19PM EST [facility] Radiology Study observation (narrative) Gregor cohn [facility] XR Pelvis and Hip - right AP and Lateral frogOrdered By: [facility] Provider on 06-19-2021 [facility] XR FOOT GEMINI MIN 3 VIEWSon [...] evidence of osteomyelitis Electronically authenticated by: MEERA TURPIN Date: 2020-12-03 16:41 Normal [facility] Vital Signs Date Time Vital Sign Value Performing Clinician Facility 04-14-2024 09:50-0400 Body height 177.8 cm Cely Marley MD Work Phone: [facility] 04-14-2024 09:50-0400 Body mass index (BMI) [Ratio] 35.44 kg/m2 Cely Marley MD Work Phone: [facility] 04-14-2024 09:50-0400 Body weight 112.04 kg Cely Marley MD Work Phone: [facility] 04-14-2024 09:50-0400 Diastolic blood pressure 76 mm[Hg] Cely Marley MD Work Phone: [facility] 04-14-2024 09:50-0400 Heart rate 78 /min Cely Marley MD Work Phone: [facility] 04-14-2024 09:50-0400 Systolic blood pressure 138 mm[Hg] Cely Marley MD Work Phone: [facility] 04-12-2024 14:34-0400 Body height 177.8 cm Bib Crispin SPOOLER OPERATOR AUTOMATIC Work Phone: [facility] 04-12-2024 14:34-0400 Body mass index (BMI) [Ratio] 34.72 kg/m2 Bib Crispin SPOOLER OPERATOR [employer]IC Work Phone: [facility] 04-12-2024 14:34-0400 Body weight 109.77 kg Anaerong Crispin SPOOLER OPERATOR AUTOMATIC Work Phone: [facility] 04-12-2024 14:34-0400 Diastolic blood pressure 70 mm[Hg] Bib Crispin SPOOLER OPERATOR AUTOMATIC Work Phone: [facility] 04-12-2024 14:34-0400 Heart rate 81 /min Bib Crispin SPOOLER OPERATOR AUTOMATIC Work Phone: [facility] 04-12-2024 14:34-0400 SaO2% (BldA) [Mass fraction] 94 % Bib Crispin SPOOLER OPERATOR AUTOMATIC Work Phone: [facility] 04-12-2024 14:34-0400 Systolic blood pressure 120 mm[Hg] Bib Crispin SPOOLER OPERATOR AUTOMATIC Work Phone: [facility] 02-09-2024 14:25-0400 Body height 177.8 cm Mona Reese DO Work Phone: [facility] 02-09-2024 14:25-0400 Body mass index (BMI) [Ratio] 36.16 kg/m2 Mona Reese DO Work Phone: [facility] 02-09-2024 14:25-0400 Body weight 114.31 kg Mona Reese DO Work Phone: [facility] 02-09-2024 14:25-0400 Diastolic blood pressure 70 mm[Hg] Mona Reese DO Work Phone: [facility] 02-09-2024 14:25-0400 Heart rate 59 /min Mona Reese DO Work Phone: [facility] 02-09-2024 14:25-0400 SaO2% (BldA) [Mass fraction] 94 % Mona Hardink DO Work Phone: [facility] 02-09-2024 14:25-0400 Systolic blood pressure 120 mm[Hg] Mona Hardink DO Work Phone: [facility] 02-09-2024 09:25-0400 Body height 179.07 cm DO Mona Reese Work Phone: [facility] 02-09-2024 09:25-0400 Body mass index (BMI) [Ratio] 35.9 kg/m2 DO Mona Reese Work Phone: [facility] 02-09-2024 09:25-0400 Body weight 115.21 kg DO Mona Reese Work Phone: [facility] 04-09-2023 09:56-0400 Body height 180.3 cm Cely Marley MD Work Phone: [facility] 04-09-2023 09:56-0400 Body mass index (BMI) [Ratio] 32.92 kg/m2 Cely Marley MD Work Phone: [facility] 04-09-2023 09:56-0400 Body weight 107.05 kg Cely Marley MD Work Phone: [facility] 04-09-2023 09:56-0400 Diastolic blood pressure 68 mm[Hg] Cely Marley MD Work Phone: [facility] 04-09-2023 09:56-0400 Heart rate 68 /min Cely Marley MD Work Phone: [facility] 04-09-2023 09:56-0400 Systolic blood pressure 106 mm[Hg] Cely Marley MD Work Phone: [facility] 04-10-2022 11:29-0400 Body height 180.34 cm Mona Reese Work Phone: [facility] [address] DO Work Phone: 04-10-2022 11:29-0400 Body mass index (BMI) [Ratio] 31.8 kg/m2 Mona Reese Work Phone: [facility] [address] DO Work Phone: 04-10-2022 11:29-0400 Body surface area Derived from formula 2.23 m2 Mona Reese Work Phone: [facility] [address] DO Work Phone: 04-10-2022 11:29-0400 Body weight 103.42 kg Mona Reese Work Phone: [facility] [address] DO Work Phone: 04-10-2022 11:29-0400 Diastolic blood pressure 60 mm[Hg] Mona Reese Work Phone: [facility] [address] DO Work Phone: 04-10-2022 11:29-0400 Heart rate 68 /min Mona Reese Work Phone: [facility] [address] DO Work Phone: 04-10-2022 11:29-0400 Systolic blood pressure 128 mm[Hg] Mona Reese Work Phone: [facility] [address] DO Work Phone: 09-10-2021 11:14-0400 Body height 180.3 cm Pacc 2 Work Phone: [facility] 09-10-2021 11:14-0400 Body temperature 97 [degF] Pacc 2 Work Phone: [facility] 09-10-2021 11:14-0400 Body weight 112.95 kg Pacc 2 Work Phone: [facility] 09-10-2021 11:14-0400 Diastolic blood pressure 62 mm[Hg] Pacc 2 Work Phone: [facility] 09-10-2021 11:14-0400 Heart rate 66 /min Pacc 2 Work Phone: [facility] 09-10-2021 11:14-0400 Respiratory rate 16 /min Pacc 2 Work Phone: [facility] 09-10-2021 11:14-0400 SaO2% (BldA) [Mass fraction] 100 % Pacc 2 Work Phone: [facility] 09-10-2021 11:14-0400 Systolic blood pressure 103 mm[Hg] Pacc 2 Work Phone: [facility] 09-10-2021 09:38-0400 Body height 180.3 cm Lorna Scotch PA-C Work Phone: [facility] 09-10-2021 09:38-0400 Body weight 110.68 kg Lorna Scotch PA-C Work Phone: [facility] 03-13-2021 09:45-0400 Body height 180.34 cm Meera Daugherty Other [employer] Other Encounters Encounter Date Encounter Type Care Provider Facility Start: 04-26-2024 Registered Recurring Mona garcia DO Work Phone: [facility] [facility] Start: 04-26-2024 ambulatory Mona Reese Facility :[facility] Start: 04-25-2024 End: 04-25-2024 ambulatory Mona Reese DO Work Phone: [facility] Work Phone: Start: 04-25-2024 End: 04-25-2024 Discharged Recurring Mona Reese DO Work Phone: [facility] [facility] Start: 04-14-2024 End: 04-14-2024 ambulatory CELY MARLEY [facility] Ambulatory Start: 04-14-2024 End: 04-14-2024 Office outpatient visit 25 minutes Cely Marley MD Work Phone: [facility] Comment on above: Shortness of breath (Primary Dx); Agatston coronary artery calcium score less than 100; Essential hypertension, benign; Mixed hyperlipidemia; Mild aortic stenosis; BMI 35.0-35.9,adult; Localized edema Start: 04-12-2024 Non-patient / Non-visit Mona Reese DO Work Phone: [facility] Work Phone: Start: 04-12-2024 End: 04-12-2024 Office outpatient visit 25 minutes Bib Roa NP Work Phone: [facility] Comment on above: IFG (impaired fastin g glucose) (Primary Dx); Agatston coronary artery calcium score less than 100; Essential hypertension (CMS/HCC); Morbid obesity (CMS/HCC) Start: 04-12-2024 End: 04-12-2024 ambulatory MONA REESE Not Available Start: 02-15-2024 End: 02-15-2024 Refill Mona Reese DO Work Phone: [facility] Comment on above: Primary insomnia Start: 02-11-2024 End: 02-11-2024 Patient encounter procedure DO Mona Reese Work Phone: [facility] Work Phone: Start: 02-11-2024 End: 02-11-2024 ambulatory DO Mona Reese Work Phone: [facility] Work Phone: Start: 02-11-2024 Non-patient / Non-visit Mona Reese DO Work Phone: [facility] Work Phone: Start: 02-09-2024 End: 02-09-2024 Office outpatient visit 25 minutes Mona Reese DO Work Phone: [facility] Comment on above: 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 (Primary Dx); Essential (primary) hypertension (CMS/HCC); Nonrheumatic aortic valve stenosis; Vitamin B12 deficiency; Obstructive sleep apnea syndrome; Restless leg syndrome; 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 (CMS/HCC); Heterotopic ossification of bone Start: 02-09-2024 End: 02-09-2024 ambulatory MONA REESE Not Available Start: 02-09-2024 End: 02-09-2024 ambulatory DO Mona Tarynterriejanine Work Phone: [facility] Work Phone: Start: 02-09-2024 End: 02-09-2024 Patient encounter procedure DO Mona Reese Work Phone: [facility] Work Phone: Start: 02-04-2024 End: 02-04-2024 External Result Encounter Essie Daugherty NP Work Phone: [facility] Department Unsolicited Start: 02-04-2024 End: 02-04-2024 External Result Encounter Essie Daugherty NP Work Phone: [facility] External Department Unsolicited Start: 02-04-2024 End: 02-04-2024 Patient encounter procedure DO Mona Reese Work Phone: [facility] Start: 02-04-2024 End: 02-04-2024 ambulatory DO Mona Taryneduardo Work Phone: [facility] Work Phone: Start: 01-19-2024 End: 01-19-2024 ambulatory MONA REESE Not Available Start: 12-07-2023 End: 12-07-2023 ambulatory MONA REESE Not Available Start: 11-04-2023 End: 11-04-2023 ambulatory BIB CRISPIN Not Available Start: 08-11-2023 End: 08-11-2023 ambulatory MONA REESE Not Available Start: 04-09-2023 End: 04-09-2023 Office outpatient visit 15 minutes Cely Marley MD Work Phone: [facility] Comment on above: Mixed hyperlipidemia (Primary Dx); Essential hypertension, benign; Obstructive sleep apnea syndrome Start: 01-31-2023 Refill Gordo bull MD Work Phone: Orthopaedics Start: 10-09-2022 End: 10-09-2022 ambulatory DO Mona Reese Work Phone: [facility] Work Phone: Start: 10-09-2022 End: 10-09-2022 Patient encounter procedure DO Mona Reese Work Phone: [facility] Work Phone: Start: 10-09-[address] [...] sit 15 minutes Mona Reese Work Phone: [facility] DO Work Phone: Start: 04-10-2022 ambulatory Cely Marley Facsuzie lity: Start: 01-16-2022 End: 01-16-2022 Subsequent hospital [...] Start: 09-10-2021 End: 09-10-2021 Admission to establishment [facility] [place] [facility] Work Phone: [facility] Start: 09-10-2021 End: 09-10-2021 ambulatory [facility] Work Phone: Pre Anesthesia Comment on above: Pre-op evaluation (P rimary Dx); Primary osteoarthritis of right hip; Primary hypertension Start: 09-10-2021 End: 09-10-2021 Preprocedural examination done [facility] [place] 2 Work Phone: [facility] Work Phone: Start: 09-10-2021 End: 09-10-2021 Patient encounter procedure Lorna Ngo PA-C Work Phone: Orthopaedics Comment on above: Primary osteoarthrit is of right hip (Primary Dx) Start: 06-19-2021 End: 06-19-2021 Subsequent hospital visit by physician Sabrina Long Work Phone: Radiology Comment on above: Primary osteoarthrit is of right hip [M16.11] Start: 03-13-2021 Office outpatient vi sit 25 minutes Meera Nolberto [facility] Start: 02-03-2021 End: 02-04-2021 ambulatory GOMEZ Rita NGUYEN Facility:[facility] Start: 12-23-2020 End: 12-24-2020 ambulatory GOMEZ Rita NGUYEN Facility:[facility] Start: 12-10-2020 End: 12-11-2020 ambulatory PRASANNA LEE Facility:[facility] Start: 12-03-2020 End: 12-04-2020 ambulatory GOMEZ Rita JANSENJANEL Facility:[facility] Procedures Date Procedure Procedure Detail Performing Clinician Start: 02-09-2024 Plain X-ray of right hip DO Mona Reese Work Phone: Start: 02-04-2024 Complete blood count with white cell differential, automated Essie Daugherty NP Work Phone: Start: 12-03-2023 Lipid 1996 panel - S rossy or Plasma Xr 1 Work Phone: Start: 03-30-2023 Lipid 1996 panel - S rossy or Plasma Cely Marley MD Work Phone: Start: 07-06-2022 Radiologic examinati on pelvis 1/2 views Lornatrang Ngo PA-C Work Phone: Start: 01-16-2022 Radiologic examinati on pelvis 1/2 views Gordo Nova MD Work Phone: Start: 10-29-2021 Radiologic examinati on pelvis 1/2 views Lorna Scotch PA-C Work Phone: Start: 09-10-2021 Antibody screen Comment on above: Order Comment: Speci men Type: BLOOD SPECIMENOrdering Facility: [facility] Address: [address] [place] [address] [place] [address] Performed By: #### T [id number] ####LINA BLOOD BANKCLIA [id number] [place] [address] [place] Start: 06-19-2021 Radex hip unilateral with pelvis 2-3 views Gordo Nova MD Work Phone: Start: 12-12-2020 Total colonoscopy Timothy Reese Work Phone: Start: 06-24-2020 Colonoscopy Essie Matta paigeis [employer] Work Phone: Laser assisted in si tu keratomileusis Mona Reese Work Phone: Nerve block anesthesia Timothy Reese Work Phone: Operative procedure on knee Mona Reese Work Phone: Repair of shoulder Mona Reese Work Phone: Screening for malign ant neoplasm of colon Meera Nolberto Other Tonsillectomy Mona grimes Work Phone: Total replacement of hip Jonah Reese Work Phone: Plan of Treatment Date Care Activity Detail Author Start: 06-24-2030 Screening for malign ant neoplasm of colon [facility] Start: 12-02-2028 Lipid panel Lipid Screening [facility] Start: 03-30-2028 Lipid panel Lipid Panel [facility] Start: 02-03-2027 Diabetes Screening Diabetes Screenwen hayes [facility] Start: 04-20-2025 End: 04-20-2025 Patient encounter procedure 04/20/2025 9:20 AM EST Office Visit [facility] [address] [id number] Cely Marley MD 703 [facility] [address] [place] [address] [facility] Start: 2025 RSV Vaccine (1 - 1-d ose 75+ series) RSV Vaccine (1 - 1-dose 75+ series) [facility] Start: 10-08-2024 DIABETES SCREEN DIABETES SCREEN [facility] Start: 08-12-2024 Medicare Annual Wellness Visit Medicare Annual Wellness Visit (AWV) [facility] Start: 08-11-2024 Medicare Annual Wellness (AWV) Medicare Annual Wellness (AWV) [facility] Start: 07-13-2024 End: 04-12-2025 CBC W Auto Differential panel - Blood CBC and differential Lab Routine IFG (impaired fasting glucose) Expected: 07/13/2024 (Approximate), Expires: 04/12/2025 [facility] Work Phone: Comment on above: Expected: 07/13/2024 (Approximate), Expires: 04/12/2025 Start: 07-13-2024 End: 10-11-2024 Comprehensive metabolic 2000 panel - Serum or Plasma Comprehensive metabolic panel Lab Routine IFG (impaired fasting glucose) Expected: 07/13/2024 (Approximate), Expires: 10/11/2024 [facility] Comment on above: Expected: 07/13/2024 (Approximate), Expires: 10/11/2024 Start: 07-13-2024 End: 04-12-2025 Hemoglobin a1c with eag Hemoglobin a1c with eag Lab Routine IFG (impaired fasting glucose) Expected: 07/13/2024 (Approximate), Expires: 04/12/2025 [facility] Comment on above: Expected: 07/13/2024 (Approximate), Expires: 04/12/2025 Start: 07-12-2024 End: 07-12-2024 Patient encounter procedure 07/12/2024 2:30 PM EST Office Visit [facility] [address] [place] [phone] Mona Reese DO [address] [place] [address] [facility] Start: 04-14-2024 End: 04-14-2024 Patient encounter procedure 04/14/2024 9:30 AM EDT Office Visit [facility] 7[address] [facility] [address] [place] [phone] Cely Marley MD [address] [facility] [place] [address] [facility] Start: 04-12-2024 End: 04-12-2024 Patient encounter procedure 04/12/2024 2:30 PM EDT Office Visit [facility] [address] [place] [address] Mona Reese, DO [address] [place] [address] [facility] Start: 03-07-2024 End: 03-07-2024 Patient encounter procedure 03/07/2024 9:30 AM EDT Office Visit [facility] [address] [place] [address] Mona Reese, DO [address] [place] [address] [facility] Start: 02-13-2024 Covid-19 Vaccine ( season) Covid-19 Vaccine ( season) [facility] Start: 02-13-2024 Influenza vaccination Influenza Vacc ine (#1) [facility] Start: 02-09-2024 End: 02-09-2024 Patient encounter procedure 02/09/2024 2:30 PM EDT Office Visit [facility] [address] [place] [phone] Mona Reese, DO [address] [place] [address] [facility] Start: 02-09-2024 Plain X-ray of right hip XR hip RT min 2V(w/wo pelvis)* [facility] Start: 02-09-2024 XR Hip - right 2 Views [facility] Start: 06-14-2023 Advance Directive Discussion Advance Directive Discussion [facility] Start: 05-24-2023 Zoster Vaccines (2 o f 2) Zoster Vaccines (2 of 2) [facility] Start: 04-09-2023 FUV, Provider: Cely Marley, Status: Pen, Time: 9:40 AM FUV, Provider: Cely Marley, Status: Pen, Time: 9:40 AM -[facility] [address] DO Work Phone: Start: 02-12-2023 Influenza vaccination INFLUENZA (#1) [facility] Start: 09-10-2022 BP CONTROLLED (<130/80) BP CONTROLLE D (<130/80) [facility] Start: 06-14-2022 ADVANCE DIRECTIVE DISCUSSION ADVANCE DIRECTIVE DISCUSSION [facility] Start: 06-14-2022 DEPRESSION ASSESSMENT DEPRESSION ASS ESSMENT [facility] Start: 02-12-2022 Influenza vaccination INFLUENZA (#1) [facility] Start: 09-10-2021 End: 09-10-2022 ECG COMPLETE ECG COMPLETE ECG Routine Pre-op evaluation Primary osteoarthritis of right hip Expected: 09/10/2021, Expires: 09/10/2022 [facility] Work Phone: Comment on above: Expected: 09/10/2021 , Expires: 09/10/2022 Start: 06-14-2021 ADVANCE DIRECTIVE DISCUSSION ADVANCE DIRECTIVE DISCUSSION [facility] Start: 02-20-2021 COVID-19 VACCINE (3 - Booster for Moderna series) COVID-19 VACCINE (3 - Booster for Moderna series) [facility] Start: 11-15-2020 COVID-19 VACCINE (3 - Booster for Moderna series) COVID-19 VACCINE (3 - Booster for Moderna series) [facility] Start: 11-15-2020 COVID-19 VACCINE (3 - Moderna series) COVID-19 VACCINE (3 - Moderna series) [facility] Start: 2015 PNEUMOCOCCAL: 65+ (1 - PCV) PNEUMOCOCCAL: 65+ (1 - PCV) [facility] Start: 2015 PNEUMOVAX AGE 65 AND OVER WITH 5YR LOOKBACK (#1) PNEUMOVAX AGE 65 AND OVER WITH 5YR LOOKBACK (#1) [facility] Start: 05-16-2013 DIABETES SCREEN DIABETES SCREEN [facility] Start: 2000 SHINGRIX VACCINE (1 of 2) SHINGRIX VACCINE (1 of 2) [facility] Start: 1995 COLOGUARD (FIT-DNA) COLOGUARD (FIT-D NA) [facility] Start: 1995 Colonoscopy COLONOSCOPY [facility] Start: 1995 COLORECTAL CANCER SCREENING COLORECTAL CANCER SCREENING [facility] Start: [address] COLONOGRAPHY [facility] Start: 1995 FECAL OCCULT BLOOD FECAL OCCULT BLOO D [facility] Start: 1995 Screening for malign ant neoplasm of colon [facility] Start: 1995 SIGMOIDOSCOPY SIGMOIDOSCOPY [facility] Start: 1985 LIPID SCREEN LIPID SCREEN [facility] Start: 1972 DTaP/Tdap/Td Vaccine s (1 - Tdap) DTaP/Tdap/Td Vaccines (1 - Tdap) [facility] Start: 1969 Urine microalbumin profile [facility] Start: 1968 ANNUAL PCP TEAM CONSTRUCTION CONTROLLER MASON DISEASE VISIT ANNUAL PCP TEAM CHRONIC DISEASE VISIT [facility] Start: 1968 Anxiety Screening Anxiety Screening [facility] Start: 1968 BP CONTROLLED (<130/80) BP CONTROLLE D (<130/80) [facility] Start: 1968 Depression Screening Depression Scre ening [facility] Start: 1968 HEPATITIS C SCREENING HEPATITIS C [facility] Start: 1968 Hepatitis C screening Hepatitis C [facility] Start: 1962 Adult depression screening assessment DEPRESSION SCREENING [facility] Start: 1956 PNEUMOCOCCAL: 65+ (1 - PCV) PNEUMOCOCCAL: 65+ (1 - PCV) [facility] Start: 1950 ABDOMINAL AORTIC ANEURYSM SCREENING ABDOMINAL AORTIC ANEURYSM SCREENING [facility] Start: 1950 Abdominal aortic aneurysm screening Abdominal Aortic Aneurysm Screening [facility] Start: 1950 Medicare Annual Wellness Visit Medicare Annual Wellness Visit (AWV) [facility] Start: 1950 Screening for malign ant neoplasm of colon [facility] Basic metabolic 1998 panel - Serum or Plasma Basic metabolic panel Lab Routine 02/04/2024 9:06 AM EDT [employer] Work Phone: End: 11-27-2022 Radiologic examination pelvis 1/2 views XR PELVIS 1V AP Radiology Routine S/P hip replacement, right 1 Occurrences starting 10/28/2021 until 11/27/2022 [facility] Work Phone: Comment on above: 1 Occurrences starti ng 10/28/2021 until 11/27/2022 [facility] Immunizations Immunization Date Immunization Notes Care Provider Falguni aurorasridhar 04-04-2024 influenza, high dose seasonal, preservative-free Yuerong Crispin [employer] Work Phone: [facility] 04-04-2024 RSV, recombinant, protein subunit RSVpreF, adjuvant reconstitu, 120mcg/0.5mL, PF (Arexvy) Yuerong Crispin [employer]ER [employer] Work Phone: [facility] 07-21-2023 zoster vaccine recombinant Essie Daugherty [employer]ER [employer] Work Phone: [facility] 03-29-2023 influenza, seasonal, injectable Cely Marley MD Work Phone: [facility] Work Phone: 03-29-2023 Influenza, Seasonal, Quadrivalent, Adjuvanted Essie Daugherty [employer]ER [employer] Work Phone: [facility] 03-29-2023 zoster vaccine recombinant Essie Daugherty SPO[employer]ER O[employer] Work Phone: [facility] 03-29-2023 influenza virus vaccine, unspecified formulation Essie Daugherty SPO[employer]ER OPER[employer] Work Phone: [facility] 03-17-2022 influenza, seasonal, injectable Mona Reese Work Phone: [facility] 250 DO Work Phone: Comment on above: Series: 03-03-2022 influenza, high dose seasonal, preservative-free Mona Reese Work Phone: [facility] 2021 influenza, high dose seasonal, preservative-free Mona Reese Work Phone: [facility] 09-20-2020 Moderna COVID-19 Vaccine 100 MCG/0.5ML Intramuscular Suspension Mona Reese Work Phone: [place] [address] DO Work Phone: 08-23-2020 Moderna COVID-19 Vaccine 100 MCG/0.5ML Intramuscular Suspension Mona Reese Work Phone: [place] [address] DO Work Phone: 03-21-2020 Fluad Quadrivalent 0 .5 ML Intramuscular Prefilled Syringe Mona Reese Work Phone: [place] [address] DO Work Phone: 03-21-2020 Seasonal trivalent influenza vaccine, adjuvanted, preservative free Cely Marley MD Work Phone: [facility] Work Phone: 03-16-2020 influenza, high dose seasonal, preservative-free Mona Reese Work Phone: [place] [address] DO Work Phone: 03-30-2019 Seasonal trivalent influenza vaccine, adjuvanted, preservative free Mona Reese Work Phone: [facility] 03-14-2019 influenza, high dose seasonal, preservative-free Cely Marley MD Work Phone: [facility] Work Phone: 03-14-2019 influenza, injectabl e, quadrivalent, preservative free Mona Reese Work Phone: [place] [address] DO Work Phone: 06-14-2018 influenza, seasonal, injectable Mona Reese Work Phone: [place] [address] DO Work Phone: 06-14-2018 pneumococcal polysaccharide vaccine, 23 valent Mona Reese Work Phone: [place] [address] DO Work Phone: 03-08-2018 Seasonal trivalent influenza vaccine, adjuvanted, preservative free Mona Reese Work Phone: [facility] 04-02-2017 Flu vaccine, quadrivalent, high-dose, preservative free, age 65y+ (FLUZONE) Cely Marley MD Work Phone: [facility] Work Phone: 04-02-2017 influenza, high dose seasonal, preservative-free Mona Reese Work Phone: [facility] 10-30-2016 pneumococcal polysaccharide vaccine, 23 valent Mona Reese Work Phone: [facility] 05-01-2016 influenza, high dose seasonal, preservative-free Cely Marley MD Work Phone: [facility] Work Phone: 06-03-2015 influenza, seasonal, injectable, preservative free Cely Marley MD Work Phone: [facility] Work Phone: 06-03-2015 pneumococcal conjuga te vaccine, 13 valent Mona Reese Work Phone: [facility] 06-03-2015 seasonal influenza, intradermal, preservative free Mona Reese Work Phone: [facility] 250 DO Work Phone: 04-08-2014 influenza, seasonal, injectable Mona Reese Work Phone: [facility] 250 DO Work Phone: 05-01-2009 novel [id number], preservative-free, injectable Mona Reese Work Phone: [facility] 250 DO Work Phone: 04-03-1999 pneumococcal polysaccharide vaccine, 23 valent Mona Reese Work Phone: -[facility] [address] DO Work Phone: Payers Date Payer Category Payer Self-pay [id number] 2021 Private Health Insurance [employer] [id number] 2020 Unknown MMO MMO MEDICARE SUPPLEMENT [id number] 2020-Present [phone] [address] [place] [address] Indemnity [id number] 2020 Unknown 2015 Medicare MEDICARE MEDICAR E A AND B [id number] 2015-Present [phone] [address] [address] [place] [address] Medicare [id number] 2015 Medicare [id number] 1959 Medicare [id number] 1959 Unknown [id number] 1950 Unknown [id number] [id number]. 593 1950 Unknown [id number] 2.16.840.1.166458.3.579.2. 593 1950 Unknown [id number] 2.16.840.1.635761.3.579.2. 593 1950 Unknown [id number] 2.16.840.1.359782.3.579.2. 593 1950 Unknown [id number] 2.16.840.1.781408.3.579.2. 356 1950 Unknown [id number] 2.16.840.1.368184.3.579.2. 356 1950 Unknown [id number] 2.16.840.1.980135.3.579.2. 1259 1950 Unknown [id number] 2.16.840.1.499502.3.579.2. 1259 1950 Unknown [id number] 2.16.840.1.366856.3.579.2. 1259 1950 Unknown [id number] 2.16.840.1.020599.3.579.2. 1259 1950 Unknown [id number] 2.16.840.1.535049.3.579.2. 1259 1950 Unknown [id number] 2.16.840.1.614269.3.579.2. 1259 1950 Unknown [id number] 2.16.840.1.630809.3.579.2. 1244 Unknown [id number] 2.16.840.1.758618.3.579.2. 531 Unknown [id number] 2.16.840.1.109144.3.579.2. 531 Unknown [id number] 2.16.840.1.071548.3.579.2. 531 Unknown [id number] 2.16.840.1.341248.3.579.2. 531 Unknown [id number] 2.16.840.1.264601.3.579.2. 531 Social History Date Type Detail Facility Start: 09-10-2021 End: 12-29-2022 Tobacco smoking status NHIS Ex-smoker [facility] Work Phone: Start: 06-14-1969 End: 06-14-1994 History of tobacco use Current smoker [facility] Work Phone: Start: 09-10-2021 End: 02-09-2024 Alcohol intake Current drinker of alcohol (finding) [facility] Start: 09-10-2021 History SDOH Alcohol Comment SOCIAL 3x/week [facility] Start: 1950 Sex Assigned At Male [facility] Start: 05-05-2021 End: 04-14-2024 Exposure to SARS-CoV-2 (event) Not sure [facility] Start: 09-10-2021 End: 08-11-2023 Sex Assigned At [facility] [employer] Other Start: 09-10-2021 End: 08-11-2023 No illicit drug use No illicit drug use [facility] 250 DO Work Phone: Comment on above: pipe smoker - quit 1 981; Start: 06-14-1969 End: 06-14-1994 History of tobacco use Cigarette Smoker [facility] Start: 09-10-2021 End: 12-29-2022 Tobacco use and exposure Smokeless tobacco non-user [facility] Start: 12-18-2021 End: 12-18-2021 Tobacco smoking status MTIS Never smoked tobacco (finding) [facility] National Score (1-100), lower number is lower risk 75 [facility] Start: 08-26-2021 Gender identity Identifies as male gender (finding) [facility] Start: 08-26-2021 Sexual orientation Heterosexual (fin ding) [facility] Start: 04-09-2023 Tobacco use and exposure Former smokeless tobacco user [facility] Work Phone: Start: 1950 Sex Assigned At Not on file [facility] Work Phone: How often to you hav e a drink containing alcohol? 2-3 time sa week [facility] How many standard drinks containing alcohol do you have on a typical day? 1 or 2 [facility] How often do you hav e 6 or more drinks on 1 occasion? Never [facility] Start: 12-29-2022 Alcohol Comment caffeine: 1 ne rgy drink in the morning [facility] Start: 04-26-2024 Sex Male (finding) [facility] Medical Equipment Procedure Code Equipment Code Equipment Origin al Text Equipment Identifier Dates Mdm Liner X3 Ins ert 48mm X 28mm [id number] Start: 10-07-2021 Liner Mdm 42mm E Cocr Acetabular 2 Mobility Modular Hip - [id number] Start: 10-07-2021 Head V40 Lfit 28 mm -4mm Offset Taper Cocr Femoral Primary Hip - [id number] Start: 10-07-2021 Shell Trident Ii 52mm E Tritanium Acetabular 5 Screw Hole Cluster Sterile - [id number] Start: 10-07-2021 Stem Accolade Ii 9 132d Femoral - [id number] Start: 10-07-2021 Clinical Notes 01-12-2010 to 04-14-2024 Cely Marley MD - 04/14/2024 9:30 AM EDTPatient InstructionsAttaColin Roa NP - 04/12/2024 2:30 PM EDTPatient InstructionsMona Reese DO - 02/09/2024 2:30 PM EDT Note Date & Type Note Facility 04-14-2024 [...] Attestation By signing my name below, I, Wang Gonzales LPN attest that this documentation has been [...] discussion and plan. documented in this encounter [facility] Work Phone: 04-14-2024 Instructions Elsy Lara LPN [...] be sent through Care Everywhere.Heart Healthy Diet (Greek)documented in this encounter [facility] Work Phone: 04-12-2024 History of Present illness Narrative Images from the original note were not included. Meera Mckoy is a 74 y.o. male presents with chief complaint of 2 Month Follow Up (On the Dooly Semiglutide) HPI: HPI History of Present Illness [...] breakthrough recieved ab infusion Esophagitis Essential hypertension ([facility]) History of colonic polyps History of right hip replacement 12/30/2022 IFG (impaired fasting glucose) Insomnia Nontraumatic complete tear of right rotator cuff Obstructive sleep apnea (adult) (pediatric) Primary osteoarthritis of both knees Prostate cancer ([facility]/HCC) 2009 GS 6 w/ brachytherapy Proteins serum plasma low Pure hypercholesterolemia ([facility]) Restless leg syndrome Thrombophlebitis 12/30/2022 Vitamin B12 deficiency Vitamin D deficiency SURGICAL HISTORY: Past Surgical History: Procedure Laterality Date CARPAL TUNNEL RELEASE Right 2016 CATARACT EXTRACTION Bilateral 09/2023 COLONOSCOPY W/ POLYPECTOMY HIP SURGERY Right 10/07/2021 Dr. Pack KNEE CARTILAGE SURGERY Left PA ARTHROCENTESIS ASPIR&/INJ INTERM JT/BURS W/O US Right PA ARTHROCENTESIS ASPIR&/INJ MAJOR JT/BURSA W/O US Left PA CV STRS TST XERS&/OR RX CONT ECG [...] supervising patient care. documented in this encounter [facility] 04-12-2024 Instructions Bib Roa NP - 04/12/2024 [...] and anti-ischemic aspects. documented in this encounter [facility] 02-15-2024 Telephone encounter Note [facility] 02-15-2024 Miscellaneous Notes [facility] documented in this encounter [facility] 02-09-2024 History of Present illness Narrative Images from the original note were not included. Meera Mckoy is a 73 y.o. male presents with chief complaint of Three-Week Follow Up HPI: HPI Amlodipine was changed to 2.5 mg daily and Samaglutide was initiated at last office visit. Today patient reports the first 2 weeks he felt like the Ozempic did not help. This last week he went up to 0.5 mg History of Present Illness The patient presents for evaluation of multiple medical concerns. He has been experiencing hip pain and sought orthopedic consultation earlier today. The orthopedist suggested that surgical intervention could be risky and may not provide a permanent solution. Instead, he was advised to try physical therapy as a less aggressive approach. He also consulted with Dr. Turpin regarding his knee pain. He is required to wear a brace for 3 months, which he finds uncomfortable, especially when wearing shorts. However, he did wear it while cycling and found it beneficial. He has been using Ozempic samples, initially at a dose of 0.25, but accidentally increased to 0.50 during his last use. He reports that the higher dose seems to be more effective, reducing his appetite and leading to a slight decrease in food intake. His weight fluctuates between 248 and 252 pounds. He has tried Buderus for weight loss without success. He has 4 or 5 more doses of Ozempic 0.5 left and plans to continue using them. He reports no side effects such as nausea or constipation. He has an echocardiogram scheduled for Wednesday. He used to take a B12 supplement. HISTORIES: PAST MEDICAL HISTORY: Past Medical History: Diagnosis Date Agatston coronary artery calcium score less than 100 Allergic rhinosinusitis Anxiety 08/16/2023 Bilateral nephrolithiasis Cervical spondylosis without myelopathy COVID-19 URI breakthrough recieved ab infusion Esophagitis Essential hypertension ([facility]) History of colonic polyps History of right hip replacement 12/30/2022 IFG (impaired fasting glucose) Insomnia Nontraumatic complete tear of right rotator cuff Obstructive sleep apnea (adult) (pediatric) Primary osteoarthritis of both knees Prostate cancer (CMS/HCC) 2010 GS 6 w/ brachytherapy Proteins serum plasma low Pure hypercholesterolemia (CMS/HCC) Restless leg syndrome Thrombophlebitis 12/30/2022 Vitamin B12 deficiency Vitamin D deficiency SURGICAL HISTORY: Past Surgical History: Procedure Laterality Date CARPAL TUNNEL RELEASE Right 2016 CATARACT EXTRACTION Bilateral 09/2023 COLONOSCOPY W/ POLYPECTOMY HIP SURGERY Right 10/07/2021 Dr. Pack KNEE CARTILAGE SURGERY Left PA ARTHROCENTESIS ASPIR&/INJ INTERM JT/BURS W/O US Right PA ARTHROCENTESIS ASPIR&/INJ MAJOR JT/BURSA W/O US Left PA CV STRS TST XERS&/OR RX CONT ECG W/SI&R myoview SHOULDER SURGERY Left SOCIAL HISTORY: Social History Tobacco Use Smoking status: Former Current packs/day: 0.00 Types: Cigarettes Start date: 1969 Quit date: 1994 Years since quittin.6 Smokeless tobacco: Never Substance Use Topics Alcohol [...] mg, Oral, Daily aspirin (ASPIRIN) 81 mg, Oral, Every 24 hours atorvastatin (LIPITOR) 40 mg, Oral, Daily brimonidine (AlphaGAN P) 0.2 % ophthalmic solution cholecalciferol (VITAMIN D-3) 1,000 Units, Oral, Every 24 hours cyanocobalamin (VITAMIN B-12) 500 mcg, Oral, Daily diphenhydrAMINE (BENADRYL ALLERGY) 25 mg, Oral, Nightly PRN dorzolamide-timolol (Cosopt) 2-0.5 % ophthalmic solution 1 drop, Both Eyes, Every 12 hours latanoprost (Xalatan) 0.005 % ophthalmic solution 1 drop, Both Eyes, Every 24 hours losartan (COZAAR) 100 mg, Oral, Nightly sildenafil (VIAGRA) 50 mg, Oral, Daily PRN tadalafil (Cialis) 10 MG tablet As directed timolol (Timoptic) 0.25 % ophthalmic solution Every 24 hours Wegovy 1 mg, Subcutaneous, Weekly zolpidem (AMBIEN) 10 mg, Oral, Nightly PRN ALLERGIES: No Known Allergies PHYSICAL EXAM: Visit Vitals BP 120/70 Pulse 59 Ht 5' 10 Wt 252 lb SpO2 94% BMI 36.16 kg/m Smoking Status Former BSA 2.37 m BP Readings from Last 3 Encounters: 02/09/24 120/70 01/19/24 140/70 12/07/23 130/62 Wt Readings from Last 3 Encounters: 02/09/24 252 lb 01/19/24 252 lb 12/07/23 248 lb Physical Exam Cardiovascular: Rate and Rhythm: Normal rate and regular rhythm. Heart sounds: Murmur (crescendo decrescendo murmur) heard. Crescendo decrescendo systolic murmur is present. Comments: Varicose veins Pulmonary: Effort: Pulmonary effort is normal. Breath sounds: Normal breath sounds. Abdominal: General: Bowel sounds are normal. Palpations: Abdomen is soft. Musculoskeletal: Cervical back: Neck supple. Right lower leg: Edema present. Left lower leg: Edema present. Neurological: General: No focal deficit present. Psychiatric: Mood and Affect: Mood normal. Physical Exam Results Laboratory Studies B12 level is 224. Blood sugar is 90. ASSESSMENT AND PLAN: Diagnosis Plan 1. Varicose veins of both legs with edema 2. Essential (primary) hypertension (CMS/HCC) amLODIPine (Norvasc) 5 MG tablet 3. Nonrheumatic aortic valve stenosis 4. Vitamin B12 deficiency cyanocobalamin (Vitamin B-12) 500 MCG tablet 5. Obstructive sleep apnea syndrome 6. Restless leg syndrome 7. 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 Weight management. His blood glucose levels have improved with Ozempic, transitioning from a prediabetic range to a current level of 90. Kidney function, potassium, and electrolyte levels are all within normal limits. His white blood cell count is also normal, indicating no anemia or infection. He has been using Ozempic samples, starting at 0.25 mg and recently increasing to 0.5 mg, which has helped reduce his appetite. A prescription for Mounjaro 5 mg will be provided, which can be obtained from [facility]. This medication should be administered as weekly injections of 0.5 mL. The cost of the medication was discussed, and he was informed that it would be delivered to his home once the Ozempic samples are depleted. If he does not experience any side effects such as nausea or constipation, he can continue with the current dosage. 2. Vitamin B12 deficiency. His vitamin B12 levels are slightly low at 224. He used to take a B12 supplement and is now advised to restart it. A recommendation was made for him to start taking slhf-off-eplqews vitamin B12 supplements at a dose of 500 mcg. A prescription will be sent to facilitate this. 3. Hypertension. His blood pressure is well-controlled with the current Norvasc regimen. No changes are needed at this time. 4. Hip pain. He visited an workforce specialist who recommended physical therapy and possibly injections as less aggressive treatment options before considering surgery. He is advised to follow up with physical therapy as recommended. 5. Echocardiogram. An echocardiogram is scheduled for Wednesday to further evaluate his cardiac function. Follow-up A follow-up visit is scheduled in 6 to 8 weeks. Visit completed with assistance from Essie ROBLES documented in this encounter [facility] 02-09-2024 Evaluation note Diagnosis Onset Date Resolution Greater trochanteric bursitis of right hip acute January 8:59am Heterotopic ossification of joint acute January 8:59am History of total hip arthroplasty acute February 08 8:59am [facility] Work Phone: 1(289) 855-557310-27-2023 History of Present illness Narrative* Cely Marley [...] Obstructive sleep apnea syndrome [facility]: 1(942) 951-901910-27-2023 Instructions* Patient Instructions* Kelli Mitchell LPN - [...] Retrieve lab One year [facility] Work Phone: 1(564) 724-947008-20-2023 Miscellaneous Notes* Telephone Encounter - Gordo Nova MD - 01/31/2023 11:21 AM EDT rx sent to pharmacy [facility] patient notified Gordo Nova II, MD [facility] Instructions* Patient Instructions* Lorna Ngo PA-C - 07/06/2022 10:36 AM EST Gentle stretching daily. Take Indomethicin 75mg twice a day WITH FOOD. Chair squats and/or leg press weight exercises to improve quadriceps strength for getting out of a chair. Followup in 3 months. [facility] History of Present illness Narrative* Lorna [...] MENISCAL SHAVING performed by PHILIP ARCEO at [facility] [facility] REMOVED SHOULDER TONSILLECTOMY HX [...] 06, 2022 10:06 AM [facility] History of Present illness Narrative* RT [...] 06, 2022 9:37 AM documented [facility]2022 NoteHNO ID: [id number] Author: Gordo Nova MD Service: ? Author Type: Physician Type: Progress Notes Filed: 01/16/2022 4:48 PM Note Text: see dictated note Gordo Nova II, [facility]08-05-2022 NoteHNO ID: [id number] Author: Gordo Nova MD Service: Orthopaedic Surgery Author Type: Physician Type: Progress Notes Filed: 01/20/2022 3:07 PM Note Text: [facility] [address] [place] [address] CLINIC NOTE Department of Orthopaedics - Katrina Nova II, M.D. NAME: MEERA MCKOY [facility] NO.: [id number] DATE OF SERVICE: 01/16/2022 CHIEF COMPLAINT: Recheck of right hip. Right THR, 10/07/2021 - 3 months. The patient is doing well with his hip. He has lost 40 pounds since surgery. He has no symptoms. His x-rays of the hip look excellent. Dictated By: Gordo Nova II, M.D. Date Dictated: 01/19/2022 Date Typed: [facility] 01/20/2022 JOB# [id number] [facility]08-[facility]-2022 NoteHNO ID: [id number] Author: RT Flavia(R) Service: ? Author Type: [...] BY: RT Flavia(R) January 16, 2022 11:03 [facility]08-05-2022 History of Present illness Narrative* Ludmila James [...] 16, 2022 11:03 AM documented [facility] encounter[facility] Miscellaneous Notes* Telephone Encounter - Gordo Nova MD - 12/29/2021 11:54 AM EDT rx sent to pharmacy on file Gordo Nova II, MD documented in this encounter[facility]05-28-2022 NoteHNO ID: [id number] Author: Gordo Nova MD Service: ? Author Type: Physician Type: Progress Notes Filed: 11/08/2021 3:15 PM Note Text: SEE DICTATED NOTE Gordo Nova II [facility]05-28-2022 History of Present illness Narrative* Gordo Nova MD - 11/08/2021 3:14 PM EDT SEE DICTATED NOTE Gordo Nova II, MD documented in [facility] encounter[facility]-2022 NoteHNO ID: [id number] Author: Gordo Nova MD Service: Orthopaedic Surgery Author Type: Physician Type: Progress Notes Filed: 11/12/2021 4:04 PM Note Text: [facility] [address] [place], [place] [address] CLINIC NOTE Department of Orthopaedics - Katrina Nova II, M.D. NAME: MEERA MCKOY CLINIC NO.: [id number] DATE OF SERVICE: 11/07/2021 CHIEF COMPLAINT: Recheck of right hip. Right THR, 10/07/2021 - 4 and a half weeks. Incision area has healed very nicely and the area of rotation from the dressing tape has been completely healed. Okay to gradually resume full activities. Dictated By: Gordo Nova II, M.D. Date Dictated: 11/07/2021 Date Typed: [facility] 11/07/2021 JOB# [id number] Valley Surgical Hospital05-18-2022 NoteHNO ID: [id number] Author: Lorna Ngo PA-C Service: ? Author Type: Physician Annual Giving Director Type: Progress Notes Filed: 10/29/2021 5:36 PM [...] him that this does not look like infection.[facility]05-18-2022 NoteHNO ID: [id number] Author: Lorna Ngo PA-C Service: ? Author Type: Physician Annual Giving Director Type: Progress Notes Filed: 10/29/2021 2:27 PM [...] Lorna Ngo PA-C October 29, 2021 12:59 [facility]05-18-2022 NoteHNO ID: [id number] Author: RT Ming(R) Service: ? Author Type: [...] BY: RT Ming(R) October 29, 2021 12:28 [facility]05-18-2022 History of Present illness Narrative* Lorna BENNY Ngo - 10/29/2021 12:59 PM EDT This document [...] 29, 2021 12:59 PM documented in [facility] encounter[facility]-2022 Instructions* Patient Instructions* Lorna Ngo PA-C [...] Aspirin twice a day. documented in this encounter[facility]04-27-2022 NoteHNO ID: [id number] Author: Alayna Kaiser (Overhead Garage Door Hanger) Service: ? Author Type: ? Type: Plan [...] or your Primary Care Provider. 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 Stated Goals: To return home to life as it was Health Insurance: Medicare Health Issues Impacting Discharge Plan: Newly diagnosed Newly Diagnosed: hip replacement Advance Directive: Current Advance Directive: Health Care 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;Living Will In Chart: Yes Up To Date [...] Walker Has the Patient Been in a Prison Facility in the Past 30 days?: No SOCIAL: Living Arrangements: Home Lives With: Spouse Financial Resources: Retired Primary Contact: Extended Emergency Contact Information Primary Emergency Contact: Raisa Mckoy Address: [address] [place] [address] [address] Relation: Spouse Supportive Patient Contact:: Yes [...] Psychosocial Needs: None FREEDOM OF CHOICE EXPLAINED: [place] of Choice Given: No Reason Not Given: No placements necessary POTENTIAL TRANSITION PLANS Outpatient Therapy Patient from home with spouse. Has an outpatient PT appt at 9:45 AM at [facility] outpatient [facility]. Spouse will transport home. SIGNATURE: Mary Kulkarni RN PATIENT NAME: Meera Mckoy DATE: October 08, 2021 TIME: 9:52 AM PAGER/CONTACT #: [phone] [id number] NoteHNO ID: [id number] Author: Arnulfo Bianchi MD Service: Anesthesiology Author [...] surgical anesthetic Staffing Anesthesiologist: Arnulfo Bianchi MD EMPLOYMENT RECRUITER: Mary Andres APRN.EMPLOYMENT RECRUITER Performed by: anesthesiologist Preparation Sterility Preparation: hand [...] October 07, 2021 TIME: 9:30 AM CSN: [id number] NoteHNO ID: [id number] Author: Lorna Ngo PA-C Service: ? Author Type: Physician Annual Giving Director Type: Progress Notes Filed: 09/10/2021 12:03 PM Note Text: CONSULT ORTHOPAEDIC: HIP PRIMARY CARE PHYSICIAN: Mona Reese, DO, DO REFERRING PROVIDER: Gordo Nova [address] [facility] [address] ASSESSMENT AND PLAN: Impression: Right Hip Severe [...] evaluation and management of Right hip pain.Meera Mckyo has had progressive problems with the hip(s) constantly over the past 1 year(s) interfering with activities which include walking 2 blocks, gardening, doing transportation project manager, participating in family activities, enjoying hobbies, exercise, [...] Risk Calculator Meera elizabeth (more content not included)...[facility] 09-10-2021 Instructions* Patient Instructions* Maira Doss APRN.CRITICAL CARE TRANSPORT NURSE - 09/10/2021 11:01 AM EDT PATIENT PREOPERATIVE INSTRUCTIONS Gordo Nova MD has scheduled you for your procedure at this surgery center: [facility]: [phone] --[id number] [facility] [place] [address]. Please enter through the entrance closest to [...] Procedures: - YOU MUST HAVE A RESPONSIBLE ASSOCIATE FINANCIAL PLANNER TAKE YOU HOME. A DENTAL RECEPTIONIST OR DIRECTOR OF RELIGIOUS ACTIVITIES CANNOT BE MADE A RESPONSIBLE ASSOCIATE FINANCIAL PLANNER. - We recommend that a responsible person stays with you overnight to take care of you. - You cannot stay in a hotel alone after outpatient surgery. You will not be permitted to have yoursurgery, if you do not have someone to take care of you. If you already have an Advance Directive, please fax a copy to [phone] or email to for it to be [...] day. Maira Doss APRN.CNP documented in [facility] encounter[facility]22 History and physical note * Maira [...] fevers. Neuro: No history of TIA's, stroke, WEB DESIGNER tumor, impaired sensorium, hemiplegia, paraplegia or quadraplegia. No neurological symptoms or problems. Respiratory: No history of current cough or dyspnea, or pneumonia in the past 6 weeks. No history of respiratory/pulmonary symptoms or problems. + KATTY wears CPAP Cardiovascular: Negative for Recent VA, Arrhythmia, Chest Pain, DVT/PE + HTN on [...] 2021 TIME: 11:00 AM documented in this encounter[facility]03-30-2022 Instructions* Patient Instructions* Lorna Ngo PA-C [...] you out after surgery. documented in this encounter[facility]03-[facility]-2022 History of Present illness Narrative* Lorna Ngo PA-C - 09/10/2021 9:33 AM EDT CONSULT ORTHOPAEDIC: HIP PRIMARY CARE PHYSICIAN: Mona Reese DO DO REFERRING PROVIDER: Gordo Nova [address] [facility] [address] ASSESSMENT & PLAN: Impression: Right Hip Severe [...] which include walking 2 blocks, gardening, doing transportation project manager, participating in family activities, enjoying hobbies, exercise, [...] dependent Total Joint Arthroplasty: Risk Calculator Meera Dayana Leelee has a 6.06% chance of NOT returning [...] HISTORY Procedure Laterality Date ARTHROSCOPIC KNEE SURGERY 2008- RT LT KNEE [...] SIGNATURE: Lorna Ngo PA-C PATIENT NAME: Meera Hawthornerobert DATE: September 10, 2021 TIME: 9:34 AM documented in [facility] encounter[facility]01-[facility]-2022 NoteHNO ID: [id number] Author: Gavin Elliott, DO Service: ? Author Type: Physician Type: Progress Notes Filed: 06/23/2021 11:46 AM Note Text: Meera Anne Leelee is here today at request of Dr. Gordo Nova specifically for consultation of my opinion in regards to the chief complaint listed below. Correspondence will be shared today via the [employer] electronic health record or through regular mail, where applicable. CHIEF COMPLAINT: Meera Mckoy is a 71 year old male who presents today for new evaluation of right hip. CONSULTATION NOTE Correspondence will be shared today via the [employer] electronic health record or through regular mail, [...] hip joint Informed Consent Consent Obtained: Verbal [place] Protocol A moment to CARE was completed. [...] Care Visit completed when applicable Gavin Elliott, [facility]01-06-2022 NoteHNO ID: [id number] Author: Gordo Nova MD Service: Orthopaedic Surgery Author Type: Physician Type: Progress Notes Filed: 06/23/2021 12:59 PM Note Text: [facility] [address] [place], [place] [address] CLINIC NOTE Department of Orthopaedics - Katrina Nova II, M.D. NAME: MEERA MCKOY CLINIC NO.: [id number] DATE OF SERVICE: 06/19/2021 CHIEF COMPLAINT: Pain [...] large belly. X-RAY: AP weight bearing shows [id number] on the superior weightbearing portion of the right hip with degenerative arthritis throughout the joint. IMPRESSION: Severe degenerative arthritis of the right hip. RECOMMEND: 1. Weight loss - discussed intermittent fasting. 2. Patient wants to get some relief of pain before he goes to [place] in July and then is considering having a total hip done upon his return. We have suggested a hip injection by Dr. Elliott. The patient is anxious to have this done, we will schedule. We will plan on doing his hip 3 months after the hip injection. Dictated By: Gordo Nova II, M.D. Date Dictated: 06/19/2021 Date Typed: [facility] 06/20/2021 JOB# [id number] [facility]01-06-2022 NoteHNO ID: [id number] Author: RT Eze(R) Service: ? Author Type: [...] IV DATA: Not applicable SIGNED BY: RT Eze(R) June 19, 2021 11:31 [facility]09-30-2021 Evaluation note* Encounter Date Diagnosis Assessment Notes [...] can reduce the intensity of perceived pain [facility] Other 08-01-2010 History general Narrative - Reported* Type Description Date Medical History hypertension Medical History KATTY Medical History cervical arthritis Medical History glaucoma Medical History prostate cancer Surgical History right TKA 01/2010 Surgical History left TKA 2009 Surgical History bilateral carpal tunnel Surgical History knee arthroscopies Surgical History left shoulder scope with rotato r cuff repair Hospitalization History see surgeries [facility] Other Evaluation note* Diagnosis Primary osteoarthritis of right hip- Primary Primary localized osteoarthrosis, pelvic region and thigh Primary osteoarthritis of right hip Primary localized osteoarthrosis, pelvic region and thigh [facility]* Diagnosis Pre-op evaluation- Primary Preoperative examination, unspecified Primary osteoarthritis of right hip Primary localized osteoarthrosis, pelvic region and thigh Primary hypertension Unspecified essential hypertension Primary osteoarthritis of right hip Primary localized osteoarthrosis, pelvic region and thigh documented [facility]* Diagnosis S/P hip replacement, right- Primary [facility]* Diagnosis S/P hip replacement, right- Primary documented [facility]* Diagnosis S/P hip replacement, right- Primary documented [facility]* Diagnosis S/P hip replacement, right- Primary Heterotopic ossification of joint documented in this encounter [facility]Evalunem[facility] foundation noteNo assessment information availableMagruder [facility] Work Phone: Evaluation note* Diagnosis S/P hip replacement, right [facility]* Diagnosis Mixed hyperlipidemia- Primary Essential hypertension, benign Obstructive sleep apnea syndrome Obstructive sleep apnea (adult) (pediatric) documented in [facility] encounter [facility] Work Phone: Evaluation note* Diagnosis Onset Date Resolution Status Greater trochanteric bursitis of right hip acute Heterotopic ossification of joint acute History of total hip arthroplasty acute [facility] Work Phone: Evaluation note* Diagnosis Pre-op evaluation- Primary Preoperative examination, unspecified Primary osteoarthritis of right hip Primary localized osteoarthrosis, pelvic region and thigh Primary hypertension Unspecified essential hypertension S/P hip replacement, right [facility] Pre-op evaluation- Primary Preoperative examination, unspecified Primary osteoarthritis of right hip Primary localized osteoarthrosis, pelvic region and thigh Primary hypertension Unspecified essential hypertension S/P hip replacement, right [facility]* Diagnosis Pre-op evaluation- Primary Preoperative examination, unspecified Primary osteoarthritis of right hip Primary localized osteoarthrosis, pelvic region and thigh Primary hypertension Unspecified essential hypertension S/P hip replacement, right [facility]* Diagnosis Primary osteoarthritis of right hip Primary localized osteoarthrosis, pelvic region and thigh [facility] Diagnosis IFG (impaired fasting glucose)- Primary Agatston coronary artery calcium score less than 100 Essential hypertension (CMS/HCC) Unspecified essential hypertension Morbid obesity (CMS/HCC) Morbid obesity documented [facility]* Diagnosis Shortness of breath- Primary Agatston coronary artery calcium score less than 100 Essential hypertension, benign Mixed hyperlipidemia Mild aortic stenosis Aortic valve disorders BMI 35.0-35.9,adult Localized edema Edema documented in this encounter [facility] Work Phone: Evaluation note* Diagnosis Primary insomnia Persistent disorder of initiating or maintaining sleep documented in this encounter [facility]* Diagnosis Varicose veins of both legs with edema- Primary Essential (primary) hypertension (CMS/HCC) Unspecified essential hypertension Nonrheumatic aortic valve stenosis Vitamin B12 deficiency Other B-complex deficiencies Obstructive sleep apnea syndrome Obstructive sleep apnea (adult) (pediatric) Restless leg syndrome Restless legs syndrome (RLS) 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 (CMS/HCC) Heterotopic ossification of bone documented in this encounter [facility] HealthcareHistory of Present illness Narrative* Patient is here for follow- up continue management for hypertension, hyperlipidemia and elevated [...] of change in cardiac status or symptoms [facility] [address] DO Work Phone: Reason for referral (narrative)* Outpatient Procedure (Routine) - Authorized Specialty Diagnoses / Procedures Referred By Ronen wolf Referred To [facility] Diagnoses Pre-op evaluation Primary osteoarthritis of right hip Procedures ECG COMPLETE ECG ROUTINE ECG W/LEAST 12 LDS W/I&R Maira Doss APRN.CRITICAL CARE TRANSPORT NURSE [address] [place] [address] [facility] [address] [place] [address] Referral ID Status Reason Start Date Expiration Date Visits Requested Visits Authorized [id number] Authorized Auto-Generat ed Referral 09/10/2021 09/10/2022 1 1 [facility] for referral (narrative)* Diagnostic Procedure Only (Routine) - Pending Review Specialty Diagnoses / Procedures Referred By Contac t Referred To Contact XR IMAGING Diagnoses S/P hip replacement, right Procedures XR PELVIS 1V AP RADIOLOGIC EXAMINATION PELVIS 1/2 VIEWS Lorna Ngo PA-C [address] [place] [address] Xr Imaging Referral ID Status Reason Start Date Expiration Date Visits Requested Visits Authorized [id number] Pending Review Auto-Generat ed Referral 10/28/2021 11/27/2022 1 1 * Diagnostic Procedure Only (Routine) - Closed Specialty Diagnoses / Procedures Referred By Contac t Referred To Contact XR IMAGING Diagnoses S/P hip replacement, right Procedures XR PELVIS 1V AP RADIOLOGIC EXAMINATION PELVIS 1/2 VIEWS Lorna Ngo PA-C [address] [place] [address] Xr Imaging Referral ID Status Reason Start Date Expiration Date V isits Requested Visits Authorized [id number] Closed Auto-Generate d Referral 10/26/2021 11/25/2022 1 1 [facility] for referral (narrative)* Consultation (Routine) - Authorized Specialty Diagnoses / Procedures Referred By Contac t Referred To Contact Cardiology Diagnoses Mixed hyperlipidemia Essential hypertension, benign Procedures Follow Up In Cardiology Cely Marley MD [address] [place] [address], [address] [address] Cely Marley MD [address] [place] [address] 2, [address] [address] Referral ID Status Reason Start Date Expiration Date V isits Requested Visits Authorized [id number] Authorized 04/09/2023 04/08/2024 1 1 [facility] Work Phone: Reason for referral (narrative)* Diagnostic Procedure Only (Routine) - Closed Specialty Diagnoses / Procedures Referred By Contac t Referred To Contact XR IMAGING Diagnoses S/P hip replacement, right Procedures XR PELVIS 1V AP RADIOLOGIC EXAMINATION PELVIS 1/2 VIEWS Lorna Ngo PA-C [address] [place] [address] [place] [address] Referral ID Status Reason Start Date Expiration Date V isits Requested Visits Authorized [id number] Closed Auto-Generate d Referral 05/20/2022 06/19/2023 1 1 [facility] for referral (narrative)* Diagnostic Procedure Only (Routine) - Closed Specialty Diagnoses / Procedures Referred By Contac t Referred To Contact XR IMAGING Diagnoses S/P hip replacement, right Procedures XR PELVIS 1V AP RADIOLOGIC EXAMINATION PELVIS 1/2 VIEWS Gordo Nova MD [address] [place] [address] [place] [address] Referral ID Status Reason Start Date Expiration Date V isits Requested Visits Authorized [id number] Closed Auto-Generate d Referral 01/11/2022 02/10/2023 1 1 T [facility] for referral (narrative)* Diagnostic Procedure Only (Routine) - Closed Specialty Diagnoses / Procedures Referred By Contac t Referred To Contact XR IMAGING Diagnoses S/P hip replacement, right Procedures XR PELVIS 1V AP RADIOLOGIC EXAMINATION PELVIS 1/2 VIEWS Lorna Ngo PA-C [address] [place] [address] [place] [address] Referral ID Status Reason Start Date Expiration Date V isits Requested Visits Authorized [id number] Closed Auto-Generate d Referral 10/26/2021 11/25/2022 1 1 T [facility] for referral (narrative)* Diagnostic Procedure Only (Routine) - Closed Specialty Diagnoses / Procedures Referred By Contac t Referred To Contact XR IMAGING Diagnoses Primary osteoarthritis of right hip Procedures XR HIP GENERAL 3V PELV/AP/LAT RIGHT RADEX HIP UNILATERAL WITH PELVIS 2-3 VIEWS Gordo Nova MD [address] [place] [address] [place] [address] Referral ID Status Reason Start Date Expiration Date V isits Requested Visits Authorized [id number] Closed Auto-Generate d Referral 06/18/2021 07/18/2022 1 1 [facility] for referral (narrative)* Consultation (Routine) - Authorized Specialty Diagnoses / Procedures Referred By Contac t Referred To Contact Orthopaedic Surgery Diagnoses Heterotopic ossification of bone Mona Reese DO [address] [facility] [address] [place] [address] Drew Esposito PA [address] [facility] [address] [place] [address] Referral ID Status Reason Start Date Expiration Date Visits Requested Visits Authorized [id number] Authorized Specialty Services Required 02/09/2024 08/07/2024 1 1 [facility] for visit Narrative* Diagnostic Procedure Only (Routine) - Closed Specialty Diagnoses / Procedures Referred By Contac t Referred To Contact XR IMAGING Diagnoses S/P hip replacement, right Procedures XR PELVIS 1V AP RADIOLOGIC EXAMINATION PELVIS 1/2 VIEWS Lorna Ngo PA-C [address] [place] [address] [place] [address] Referral ID Status Reason Start Date Expiration Date V isits Requested Visits Authorized [id number] Closed Auto-Generate d Referral 05/20/2022 06/19/2023 1 1 [facility] for visit Narrative* Diagnostic Procedure Only (Routine) - Closed Specialty Diagnoses / Procedures Referred By Contac t Referred To Contact XR IMAGING Diagnoses S/P hip replacement, right Procedures XR PELVIS 1V AP RADIOLOGIC EXAMINATION PELVIS 1/2 VIEWS Lorna Ngo PA-C [address] [place] [address] [place] [address] Referral ID Status Reason Start Date Expiration Date V isits Requested Visits Authorized [id number] Closed Auto-Generate d Referral 10/26/2021 11/25/2022 [facility] Procedure Only (Routine) - Closed Specialty Diagnoses / Procedures Referred By Contac t Referred To Contact XR IMAGING Diagnoses Primary osteoarthritis of right hip Procedures XR HIP GENERAL 3V PELV/AP/LAT RIGHT RADEX HIP UNILATERAL WITH PELVIS 2-3 VIEWS Gordo Nova MD [address] [place] [address] [place] [address] Referral ID Status Reason Start Date Expiration Date V isits Requested Visits Authorized [id number] Closed Auto-Generate d Referral 06/18/2021 07/18/2022 1 1 [facility] Summary Purpose Family History Unknown Family Member Name Dates Details Family history [...] Unknown father Unknown mother Unknown Advance Directives Documents on File Type Date Recorded Patient Cable Television Line Technician Expl anation Advance Directive(s) 09/09/2021 5:40 PM Advance Directive(s) 02/26/2010 3:22 PM Documents on File Type Date Recorded Patient Cable Television Line Technician Expl anation Advance Directive(s) 09/09/2021 5:40 PM Advance Directive(s) 02/26/2010 3:22 PM Documents on File Type Date Recorded Patient Cable Television Line Technician Expl anation Advance Directive(s) 10/07/2021 7:42 AM sc anned in on 10/07/21 Advance Directive(s) 10/07/2021 7:39 AM Advance Directive(s) 09/09/2021 5:40 PM Advance Directive(s) 02/26/2010 3:22 PM Documents on File Type Date Recorded Patient Cable Television Line Technician Expl anation Advance Directive(s) 10/07/2021 7:42 AM sc anned in on 10/07/21 Advance Directive(s) 10/07/2021 7:39 AM Advance Directive(s) 09/09/2021 5:40 PM Advance Directive(s) 02/26/2010 3:22 PM Documents on File Type Date Recorded Patient Cable Television Line Technician Expl anation Advance Directive(s) 10/07/2021 7:39 AM Advance Directive(s) 02/26/2010 3:22 PM Advance Directive Response Recorded Date/ Time Advance Directives Yes February 05, 2017 1:13pm Documents on File Type Date Recorded Patient Cable Television Line Technician Expl anation Advance Directive(s) 10/07/2021 7:39 AM [...] total hip arthroplasty February 09, 2024 8:59am Reason for Referral Specialty Diagnoses / Procedures Referred By Contac t Referred To Contact Diagnoses Primary insomnia Essie Daugherty, SPOOLER OPERATOR AUTOMATIC [address] [place] [address] Referral ID Status Reason Start Date Expiration Date V isits Requested Visits Authorized [id number] Pending Review 1 1 Additional Source Comments (unrecognized sect ion and content) No Status Records FoundNo Status Records FoundNo Status Records FoundNo Status Records FoundNo Status Records FoundNo Status Records FoundNo Status Records FoundNo Status Records FoundNo Status Records Found INFORMATION SOURCE (unrecogn ized section and content) DATE CREATED AUTHOR 03/07/2021 [facility] pital DATE CREATED AUTHOR AUTHOR'S ORGANIZ ATION 10/01/2021 [facility] dical Specialist DATE CREATED AUTHOR AUTHOR'S ORGANIZ ATION 10/09/2021 [facility] DATE CREATED AUTHOR AUTHOR'S ORGANIZ ATION 01/21/2022 [facility] DATE CREATED AUTHOR AUTHOR'S ORGANIZ ATION 04/11/2022 [employer] DATE CREATED AUTHOR AUTHOR'S ORGANIZ ATION 10/15/2022 [facility] ical Center DATE CREATED AUTHOR AUTHOR'S ORGANIZ ATION 04/14/2024 [facility] dical Specialists EPIC DATE CREATED AUTHOR AUTHOR'S ORGANIZ ATION 04/16/2024 [facility] tals Ambulatory DATE CREATED AUTHOR AUTHOR'S ORGANIZ ATION 04/29/2024 [facility] Source Comments (unrecognize d section and content) In the event this informatio n is protected by the Federal Confidentiality of Alcohol and Drug Abuse Patient Records regulations: The Federal rules restrict any use of the information to criminally investigate or prosecute any alcohol or drug abuse patient.[facility] the event this information is protected by the Federal Confidentiality of Alcohol and Drug Abuse Patient Records regulations: The Federal rules restrict any use of the information to criminally investigate or prosecute any alcohol or drug abuse patient.[facility] the event this information is protected by the Federal Confidentiality of Alcohol and Drug Abuse Patient Records regulations: The Federal rules restrict any use of the information to criminally investigate or prosecute any alcohol or drug abuse patient.[facility] the event this information is protected by the Federal Confidentiality of Alcohol and Drug Abuse Patient Records regulations: The Federal rules restrict any use of the information to criminally investigate or prosecute any alcohol or drug abuse patient.[facility] the event this information is protected by the Federal Confidentiality of Alcohol and Drug Abuse Patient Records regulations: The Federal rules restrict any use of the information to criminally investigate or prosecute any alcohol or drug abuse patient.[facility] the event this information is protected by the Federal Confidentiality of Alcohol and Drug Abuse Patient Records regulations: The Federal rules restrict any use of the information to criminally investigate or prosecute any alcohol or drug abuse patient.[facility] the event this information is protected by the Federal Confidentiality of Alcohol and Drug Abuse Patient Records regulations: The Federal rules restrict any use of the information to criminally investigate or prosecute any alcohol or drug abuse patient.[facility] the event this information is protected by the Federal Confidentiality of Alcohol and Drug Abuse Patient Records regulations: The Federal rules restrict any use of the information to criminally investigate or prosecute any alcohol or drug abuse patient.[facility] the event this information is protected by the Federal Confidentiality of Alcohol and Drug Abuse Patient Records regulations: The Federal rules restrict any use of the information to criminally investigate or prosecute any alcohol or drug abuse patient.[facility] the event this information is protected by the Federal Confidentiality of Alcohol and Drug Abuse Patient Records regulations: The Federal rules restrict any use of the information to criminally investigate or prosecute any alcohol or drug abuse patient.[facility] the event this information is protected by the Federal Confidentiality of Alcohol and Drug Abuse Patient Records regulations: The Federal rules restrict any use of the information to criminally investigate or prosecute any alcohol or drug abuse patient.[facility] the event this information is protected by the Federal Confidentiality of Alcohol and Drug Abuse Patient Records regulations: The Federal rules restrict any use of the information to criminally investigate or prosecute any alcohol or drug abuse patient.[facility] Care Teams (unrecognized sec tion and content) Circulation Crew Leader Relationship Specialty Start Date End Date Mona Reese DO [address] [place] [address] PCP - General 01/09/10 Circulation Crew Leader Relationship Specialty Start Date End Date Vaschak, Mona Ferdinand, DO [address] [place] [address] PCP - General 01/09/10 Circulation Crew Leader Relationship Specialty Start Date End Date Mona Reese, DO [address] [place] [address] PCP - General 01/09/10 Circulation Crew Leader Relationship Specialty Start Date End Date Mona Reese, DO [address] [place] [address] PCP - General 01/09/10 Circulation Crew Leader Relationship Specialty Start Date End Date Mona Reese, DO [address] [place] [address] PCP - General 01/09/10 Circulation Crew Leader Relationship Specialty Start Date End Date Mona Reese, DO [address] [place] [address] PCP - General 01/09/10 Team Status: Active Member Role Status Dates Mona Reese DO Primary Care Provider Active Team Status: Inactive Member Role Status Dates Mona Reese DO Primary Care Provider, Gini reynoso Active Circulation Crew Leader Relationship Specialty Start Date End Date Mona Reese DO [address] [place] [address] PCP - General 01/09/10 Circulation Crew Leader Relationship Specialty Start Date End Date Mona Reese DO [address] [facility] [address] [place] [address] PCP - General 06/14/99 Team Status: Inactive Member Role Status Dates Mona Reese DO Primary Care Provider Active Start: February 04, 2024 End: February 04, 2024 Essie Nolberto-Catarino , SPOOLER OPERATOR AUTOMATIC-C Attending Provider Acti ve Start: February 04, [...] February 11, 2024 End: February 11, 2024 TRAVIS Hackett Attending Provider Active S tart: February 11, 2024 End: February 11, 2024 Circulation Crew Leader Relationship Specialty Start Date End Date Mona Reese DO [address] [place] [address] PCP - General 01/09/10 Circulation Crew Leader Relationship Specialty Start Date End Date Mona Reese DO [address] [place] [address] PCP - General 01/09/10 Circulation Crew Leader Relationship Specialty Start Date End Date Mona Reese DO [address] [place] [address] PCP - General 01/09/10 Circulation Crew Leader Relationship Specialty Start Date End Date Mona Reese DO [address] [place] [address] PCP - ACO Reach 11/05/22 Mona Reese DO [address] [place] [address] PCP - General Internal Medicine 12/28/22 Circulation Crew Leader Relationship Specialty Start Date End Date Mona Reese DO [address] [place] [address] PCP - General Internal Medicine 04/14/24 Cely Marley MD [address] [facility] [address] [place] [address] Consulting Physician Cardiology 04/14/24 Team Status: Active Member Role Status Dates Mona Reese DO Primary Care Provider Active Start: February 11, 2024 TRAVIS Hackett Other Provider Active Start : February 11, [...] Attending Provider Active Start: April 26, 2024 Circulation Crew Leader Relationship Specialty Start Date End Date Mona Reese DO [address] [place] [address] PCP - ACO Reach 11/05/22 Mona Reese DO [address] [place] [address] PCP - General Internal Medicine 12/28/22 Circulation Crew Leader Relationship Specialty Start Date End Date Mona Reese DO [address] [place] [address] PCP - ACO Reach 11/05/22 Mona Reese, [address] [place] [address] PCP - General Internal Medicine 12/28/22 Circulation Crew Leader Relationship Specialty Start Date End Date Mona Reese, [address] [place] [address] PCP - ACO Reach 11/05/22 Mona Reese, [address] [place] [address] PCP - General Internal Medicine 12/28/22 Circulation Crew Leader Relationship Specialty Start Date End Date Mona Reese, [address] [place] [address] PCP - ACO Reach 11/05/22 Mona Reese, [address] [place] [address] PCP - General Internal Medicine 12/28/22 Reason for Visit (unrecogniz ed section and [...] EXAMINATION PELVIS 1/2 VIEWS Gordo Nova MD [address] [place] [address] [place] [address] Referral ID Status Reason Start Date Expiration Date V isits Requested Visits Authorized [id number] Closed Auto-Generate d Referral 01/11/2022 02/10/2023 1 1 Reason Comments 2 Month Follow Up On the [place] Jeff iglutide Reason Comments Follow-up 1 yr Specialty Diagnoses / Procedures Referred By Ronen wolf Referred To Contact Cardiology Diagnoses Mixed hyperlipidemia Essential hypertension, benign Procedures Follow Up In Cardiology Cely Marley MD [address] [facility] [address], [address] [address] Phone: tel: fax: Cely Marley MD [address] [facility] [address], [address] [address] Phone: tel: fax: Referral ID Status Reason Start Date Expiration Date V isits Requested Visits Authorized [id number] Authorized 04/09/2023 04/08/2024 1 1 Reason Onset Date Comments Med Refill 02/15/2024 Reason Comments Three-Week Follow Up Goals (unrecognized section and content) Goals may [...] BE BASED ON THE PRIMARY CLINICAL RECORDS. [employer] provides no warranty or guarantee of the accuracy or completeness of information in this document.
[2024-07-06] MEDS: LIDOCAINE HCL 1% 100 MG/10 ML MDV INJ (09:25)
[2024-07-06] MEDS: 0.9 % SODIUM CHLORIDE 500 ML, LIDOCAINE HCL 20 ML, SODIUM BICARBONATE 10 MEQ INJ (09:25)
== END 2024-07-06 08:45 | disposition home or self-care (01) ==
LOC: VC 08:32
PROVIDERS: PCP Radiology Diagnostic Radiology; Visit Provider Radiology Diagnostic Radiology
DX: I83.813 Varicose veins of bilateral lower extremities with pain (principal)
CPT/HCPCS: 36478

== ENCOUNTER 2024-07-13 08:56 | Outpatient (OUT) | payer MEDICARE, OTHER, SELFPAY ==
--- NOTE | 2024-07-13 07:40 | V.VEINS.HP ---
Varicose Veins Patient in this day for follow up ultrasound post EVLT of left GSV. Godwin Bazzi MD personally performed the services described in this documentation, as scribed by Meme Suresh RVT, RDMS in my presence and it is both accurate and complete. Meme Bazzi RVT, RDMS, am scribing for, and in the presence of, Dr. Godwin Gray and in the presence of the patient. . thigh: bilateral (left leg > right leg), knee: bilateral, calf: bilateral, ankle: bilateral and gonzalez: bilateral aching, burning, cramping and dull 3 3 months Worsened in recent months: Yes standing elevating extremities Reports muscle spasms of leg, fatigue, heaviness, limb pain and leg edema History of lower extremity trauma: No Superficial thrombophlebitis: No Family history of varicose veins: no Has patient had previous lower extremity venous surgery: No Patient has previously received the following treatment(s) for lower extremity varicose veins: Reports none Does patient have a history of : not applicable Has patient had lower extremity venous scan with relux testing: No Support hose used: No Problems walking or doing physical activity: Yes How does it affect you: unable to exercise due to pain and weakness Do you walk much: Yes Review of Systems ROS Narrative Godwin Bazzi MD personally performed the services described in this documentation, as scribed by Meme Suresh RVT, RDMS in my presence and it is both accurate and complete. Meme Bazzi RVT, RDMS, am scribing for, and in the presence of, Dr. Godwin Gray and in the presence of the patient. Status of ROS 10 or more systems reviewed and unremarkable except as noted in history and below Cardiovascular Reports: edema Integumentary/Breast Reports: skin pain, skin swelling and changes in skin color Neurological Reports: numbness in extremities and weakness in extremities Hematologic/Lymphatic Reports: easy bruising and easy bleeding [facility] Medical History (Updated 07/06/24 @ 08:58 by Bay Reaves) Thrombophlebitis of superficial veins of left lower extremity ?I80.02 - Phlebitis and thrombophlebitis of superficial vessels of left lower extremity (ICD-10) Phlebitis of superficial vein of right lower extremity ?I80.01 - Phlebitis and thrombophlebitis of superficial vessels of right lower extremity (ICD-10) Prostate CA ?C61 - Malignant neoplasm of prostate (ICD-10) Knee arthropathy ?M17.10 - Unilateral primary osteoarthritis, unspecified knee (ICD-10) 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 ?M19.112 - Post-traumatic osteoarthritis, left shoulder (ICD-10) ?S46.002S - Unspecified injury of muscle(s) and tendon(s) of the rotator cuff of left shoulder, sequela (ICD-10) Kidney stones ?N20.0 - Calculus of kidney (ICD-10) Osteoarthritis of hip ?M16.9 - Osteoarthritis of hip, unspecified (ICD-10) Varicose veins of bilateral lower extremities with pain ?I83.813 - Varicose veins of bilateral lower extremities with pain (ICD-10) Hypertension ?I10 - Essential (primary) hypertension (ICD-10) Obesities, morbid ?E66.01 - Morbid (severe) obesity due to excess calories (ICD-10) Obstructive sleep apnea ?G47.33 - Obstructive sleep apnea (adult) (pediatric) (ICD-10) Angina pectoris ?I20.9 - Angina pectoris, unspecified (ICD-10) Coronary artery disease ?I25.10 - Atherosclerotic heart disease of [place] coronary artery without angina pectoris (ICD-10) Nonrheumatic aortic (valve) stenosis ?I35.0 - Nonrheumatic aortic (valve) stenosis (ICD-10) Surgical History (Updated 07/06/24 @ 08:54 by Bay Reaves) Status post laser ablation of incompetent vein ?Z98.890 - Other specified postprocedural states (ICD-10) Status post laser ablation of incompetent vein ?Z98.890 - Other specified postprocedural states (ICD-10) History of carpal tunnel surgery ?Z98.890 - Other specified postprocedural states (ICD-10) History of right hip replacement ?Z96.641 - Presence of right artificial hip joint (ICD-10) History of bilateral knee replacement ?Z96.653 - Presence of artificial knee joint, bilateral (ICD-10) Family History (Updated 01/27/24 @ 09:38 by Bay Reaves) Other Aneurysm Family history of hypertension Family history of stroke Social History (Updated 01/27/24 @ 09:42 by Bay Reaves) Within the past year, how often did you have a drink containing alcohol: 2-3 times a week Smoking status: Never smoker Non-prescribed substance use: denies use Meds Home Medications and Allergies Home Medications ?Medication ?Instructions ?Recorded ?Confirmed ?Type amlodipine 5 mg tablet (Norvasc) 5 mg PO DAILY 01/26/24 01/26/24 History aspirin 81 mg capsule 81 mg PO DAILY 01/26/24 01/26/24 History atorvastatin 40 mg tablet 40 mg PO DAILY 01/26/24 01/26/24 History cholecalciferol (vitamin D3) 25 25 mcg PO DAILY 01/26/24 01/26/24 History mcg (1,000 unit) tablet diphenhydramine HCl 25 mg capsule 25 mg PO Q8H PRN allergic reaction 01/26/24 01/26/24 History (Benadryl) losartan 100 mg tablet (Cozaar) 100 mg PO DAILY 01/26/24 01/26/24 History semaglutide (weight loss) 1 mg/0.5 0.25 mg subcut Q7D 01/26/24 01/26/24 History mL subcutaneous pen injector (Wegovy) sildenafil 50 mg tablet (Viagra) 50 mg PO DAILY PRN sexual activity 01/26/24 01/26/24 History tadalafil 10 mg tablet (Cialis) 10 mg PO DAILY PRN sexual activity 01/26/24 01/26/24 History zolpidem 10 mg tablet (Ambien) 01/26/24 History Allergies Allergy/AdvReac Type Severity Reaction Status Date / Time No Known Drug Allergies Allergy Verified 01/26/24 15:42 Exam Narrative Exam Narrative: Godwin Bazzi MD personally performed the services described in this documentation, as scribed by Meme Suresh RVT, RDMS in my presence and it is both accurate and complete. Meme Bazzi RVT, RDMS, am scribing for, and in the presence of, Dr. Godwin Gray and in the presence of the patient. Constitutional Documenting provider has reviewed patient's vital signs: yes Common normals: oriented x3 Nutritional appearance: overweight Lymph Lymphatic: no lymphedema noted Cardio Peripheral pulses: posterior tibial pulses present and dorsalis pedis pulses present Extremity Common normals: normal capillary refill General: calf tenderness and edema Right lower extremity: lower leg Right lower leg: inspection and palpation Left lower extremity: lower leg Left lower leg: inspection and palpation Neuro Common normals: oriented x3 Results Imaging Venous US: Radiologist's impression: The ultrasound demonstrates Heat induced thrombus visualized 2.2cm from the SFJ. The heat induced thrombus extends from groin to distal thigh. Assessment and Plan Assessment and Plan (1) Thrombophlebitis of superficial veins of left lower extremity: Plan Patient in today for follow up ultrasound of lower extremity following treatment of left GSV EVLT completed on 07/06/24. IGodwin MD personally performed the services described in this documentation, as scribed by Meme Suresh RVT, RDMS in my presence and it is both accurate and complete. Meme Bazzi RVT, RDMS, am scribing for, and in the presence of, Dr. Godwin Gray and in the presence of the patient.
--- NOTE | 2024-07-13 07:43 | P.DS_ITS ---
Discharge Plan Discharge Disposition: Home, Self-Care Follow Up Appointments: Patient wants to continue treatment under Dr. Gray and Dr. Turpin. Plan of Treatment: Right SSV Print Language: Bruneian Discharge Date/Time: 07/13/24 10:48
--- NOTE | 2024-07-13 08:56 | VEIN_ITS ---
Patient Name: MEERA WARNER MR#: [id number] : 1950 Exam Date: 07/13/2024 Ordering Doctor: DR MEERA BRAND M.D. RADIOLOGY REPORT PROCEDURE: VC EXT VENOUS LT LIMITED COMPARISON: None. INDICATIONS: I80.02 - Phlebitis and thrombophlebitis of superficial ve... TECHNIQUE: Lower extremity block scale and Duplex Doppler evaluation of the deep venous system from the inguinal ligament through the calf veins. FINDINGS: REGION: Left lower extremity. THROMBI: Negative for DVT. Heat induced thrombus visualized 2.2cm from the SFJ. The heat induced thrombus extends from groin to distal thigh. COMPRESSIBILITY: Non-compressible segments corresponding to thrombus FLOW: Areas of no flow corresponding to thrombus OTHER: CONCLUSION: 1. Successful post ablation occlusion of left great saphenous vein. Dictated by: Godwin Gray M.D. on 07/13/2024 at 09:44 Approved by: Godwin Gray M.D. on 07/13/2024 at 09:49
--- NOTE | 2024-07-13 08:56 | VEIN_ITS ---
Patient Name: MEERA WARNER MR#: [id number] : 1950 Exam Date: 07/13/2024 Ordering Doctor: DR MEERA BRAND M.D. RADIOLOGY REPORT PROCEDURE: [facility] - OFFICE VISIT FOLLOW UP COMPARISON: [facility], 05/31/2024. PROGRESS NOTES: The patient reports improvement in leg symptoms. There has been interval reduction in varicosities. The patient has followed our recommendations to walk 20-30 minutes once or twice per day since the procedure. Physical exam demonstrates decrease in varicosities of the leg. Persistent varicosities are identified along the legs bilaterally. Review of the ultrasound performed the same day demonstrates occlusive thrombus extending throughout the treated vein(s), see separate report, consistent with a successful ablation. No thrombus extending into or beyond the saphenofemoral junction. The patient expressed a desire to proceed with treatment of remaining incompetent varicosities. The patient was informed that treatment was a process and would require several procedures/sessions. [facility]: 1. Successful ablation of the left great saphenous vein(s). 2. 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 PLAN: 1. Endovenous laser ablation of right small saphenous vein. Nurse notes, history and physical were reviewed and confirmed, see attached forms. The nurse was present throughout the physical exam and consultation Dictated by: Godwin Gray M.D. on 07/13/2024 at 09:49 Approved by: Godwin Gray M.D. on 07/13/2024 at 09:50
--- OUTSIDE RECORDS SUMMARY | 2024-07-13 09:11 | XMS_ITS | CCD ---
Author Organization [facility] Care Team Providers Care Biomass Plant Manager Name Role Phone JOBY CEDILLO Attending JOBY [...] Mona Reese DO Primary Care Provider Dr. oMna Reese Primary Care Unava ilable Cely Marley Referring Unavailable Cely Marley Attending Unavailable Dr. Mona Reese Primary Care Unava ilable DO Mona Reese Primary Care Provider DO Mona Reese Attending Provider Mona Reese DO Primary Care Provider DO Mona Reese Primary Care Provider TRAVIS Izquierdo Attending Provider MD Mona Lezama II Attending Provider TRAVIS Roa Attending Provider Mona Reese DO Primary Care Provider Mona Reese DO Unavailable Mona Reese DO Primary Care Provider [phone] MONA REESE Attending Unavailable MONA REESE Referring [...] REESE Primary Care Unavailab Mona Simpson DO [facility] Care Provider Essie Granger Attending Provider Mona Lezama MD Attending Provider Mona Reese DO Attending Provider [phone] Mona Reese DO Primary Care Provider Mona Lezama MD Attending Provider Mona Reese Admitting Unavailable Mona Reese Primary Care Unavailable Mona Reese Attending Unavailable Mona Reese Primary Care Unavailable Essie Daugherty Admitting Unavailable Essie Daugherty Attending Unavailable Mona Reese Primary Care Unavailable Mona Lezama II Admitting UnavailMona [place] II Attending UnavailMona Montes Primary Care Unavailable Bib Roa Admitting Unavailable Bib Roa Attending Unavailable Mona Reese Primary Care Unavailable Mona Lezama II Admitting UnavailMona [place] II Attending Unavailbrandon [place] Medications Current Medications Medication Drug Class(es) Dates Sig (Normalized) Sig (Original) allopurinol 100 mg oral tablet (15 sources) Xanthine Oxidase Inhibitor Start: 09-04-2021 take 1 tablet by mouth once daily in the morning allopurinol (Zyloprim) 100 mg tablet Take 1 tablet (100 mg) by mouth once daily in the morning. 09/04/2021 Active take 1 tablet by kenneth every twenty-four hours Allopurinol 100 MG 1 tablet Orally Once a day Active Comment on above: Take 100 mg by mouth once daily. amLODIPine 5 mg oral tablet (20 sources) Dihydropyridine Calcium Channel Caleb Start: 01-19-20 End: 02-09-20 take 0.5 tablet by mouth once [...] Take 1 tablet by kenneth once daily. aspirin 81 mg delayed release [...] time. Active take 1 tablet by kenneth once daily Aspirin EC 81 MG Oral Tablet Delayed Release TAKE 1 TABLET DAILY. Quantity: 90 Refills: 3 Ordered: 10-Apr-2022 Semaj BRIGHT, Cely Active Comment on above: Take 81 mg by mouth once daily. Take 1 tablet by kenneth twice daily. atorvastatin 40 mg oral tablet (20 sources) HMG-CoA Reductase Inhibitor Start: 9 End: take 1 tablet by mouth once daily Atorvastatin 40 mg Tablet Active 40 MG PO Daily February 20, 2019 11:00pm Comment on above: Take 40 mg by mouth once daily. brimonidine tartrate 2 mg/ml ophthalmic solution (16 sources) alpha-Adrenergic Agonist Start: Brimonidine 0.2 % drops Active DROPS OPHTHALMIC February 08, 2024 11:00pm Start: 02-09-2024 Brimonidine Ac tive DROPS OPHTHALMIC February 09, 2024 12:00am Start: 03-20-2023 brimonidine (A lphaGAN P) 0.2 % ophthalmic solution 03/20/2023 Active cholecalciferol 0.025 mg oral tablet (12 sources) Vitamin D take 1 tablet by mouth once daily cholecalciferol (Vitamin D-3) 25 MCG (1000 UT) tablet Take 1,000 Units by mouth 1 (one) time each day at the same time. Active Diclofenac (2 sources) Nonsteroidal Anti-inflammatory Drug [...] for Sleep June 21, 2020 12:00am diphenhydrAMINE (Benadryl Allergy) 25 MG tablet Take 25 mg by mouth as needed at bedtime. Active Comment on above: Take 25 mg by mouth as needed. dorzolamide 20 mg/ml / timolol 5 mg/ml ophthalmic solution (11 sources) Carbonic Anhydrase Inhibitor, beta-Adrenergic Caleb Start: 01-19-2023 take 1 drop(s) into the eye(s) every twelve hours dorzolamide-timolol (Cosopt) 2-0.5 % ophthalmic solution Administer 1 drop into both eyes every 12 (twelve) hours. 01/19/2023 Active Start: 01-19-2023 take 1 drop(s) into the eye(s) every twelve hours dorzolamide-timoloL (Cosopt) 22.3-6.8 mg/mL ophthalmic solution Administer 1 drop into both eyes every 12 hours. 01/19/2023 Active ibuprofen 800 mg oral tablet (7 sources) Nonsteroidal Anti-inflammatory Drug Start: 12-18-2021 take [...] (one) time per week. 0 11/30/2022 Active phentermine hydrochloride 37.5 mg oral tablet (9 sources) Sympathomimetic Amine Anorectic Start: 07-12-2024 End: 08-11-2024 take 0.5 tablet by mouth before mealtime phentermine (Adipex-P) 37.5 MG tablet Indications: Morbid obesity (CMS/HCC) Take 0.5 tablets (18.75 mg) by mouth in the morning. Take before meals. 15 tablet 07/12/2024 08/11/2024 Active Start: 02-21-2019 End: 06-21-2020 take 1 tablet by mouth once daily Phentermine 37.5 mg Tablet Discontinued 37.5 MG PO Daily February 20, 2019 11:00pm June 21, 2020 12:03pm rosuvastatin calcium 40 mg oral tablet (4 sources) HMG-CoA Reductase Inhibitor Start: 04-14-2024 End: 04-14-2025 take 1 tablet by mouth in the morning rosuvastatin (Crestor) 40 MG tablet Take 40 mg by mouth in the morning. 04/14/2024 04/14/2025 Active Start: 01-17-2010 End: 09-10-2021 rosuvastatin calcium(CRESTOR 10 MG TAB) 2 x a week 0 01/17/2010 09/10/2021 Discontinued (Course of therapy completed) Comment on above: 2 x a week 0.25 mg, 0.5 mg dose 1.5 ml semaglutide 1.34 mg/ml pen injector (6 sources) Start: 02-09-2024 Semaglutide 0. 25 mg or 0.5 mg(2 mg/1.5 mL) pen injector Active 0.25 MG SUBCUT every week [place] 27th, 2024 11:00pm for 4 weeks Start: 2021 [...] 06/24/2012 Active take 1 tablet by kenneth once daily Sildenafil Citrate 100 MG Oral Tablet TAKE 1 TABLET DAILY 1 HOUR BEFORE NEEDED Quantity: 0 Refills: 0 Ordered: 10-Apr-2022 DO Active Comment on above: Take 0.5 tablets by mouth as needed. 30-60 minutes before sexual intercourse Spironolactone-HCTZ (1 source) Spironolactone-H CTZ Active tadalafil 10 mg oral tablet (16 sources) Phosphodiesterase 5 Inhibitor Start: 02-09-2024 Tadalafil Active MG PO February 09, 2024 12:00am Start: 2023 tadalafil (June lis) 10 MG tablet Indications: Erectile dysfunction due to arterial insufficiency As directed TAKE NEEDED for erectile dysfunction 90 tablet 3 05/19/2024 Active tamsulosin hydrochloride 0.4 mg oral capsule (10 sources) alpha-Adrenergic Caleb Start: 01-07-2022 Tamsu losin [...] Drop in both e yes once daily. tirzepatide, weight loss, (Zepbound) 10 mg/0.5 mL injection (1 source) tirzepatide, romi ght loss, (Zepbound) 10 mg/0.5 mL injection Inject 10 mg under the skin every 7 days. Active traMADol hydrochloride 50 mg oral tablet (1 source) Opioid Agonist Start: take 1 tablet by mouth every six hours traMADol HCl 50 MG 1 tablet as needed Orally every 6 hours for 7 days Dec, Active vitamin b12 0.5 mg oral tablet (8 sources) Vitamin B12 Start: 4 End: take 1 tablet by mouth once daily cyanocobalamin (Vitamin B-12) 500 MCG tablet Indications: Vitamin B12 deficiency Take 1 tablet (500 mcg) by mouth Daily 30 tablet 11 02/09/2024 02/08/2025 Active Vitamin B12 Acti ve Zinc (1 source) Zinc Active zolpidem tartrate 10 mg oral tablet (20 sources) gamma-Aminobutyric Acid-ergic Agonist Start: 06-21-2020 End: 02-15-2024 zolpidem (Ambien) 10 MG tablet Indications: Primary insomnia Take 1 tablet (10 mg) by mouth as needed at bedtime for sleep 30 tablet 3 02/15/2024 Active Comment on above: Take by mouth at bed time as needed. Completed/Discontinued Medications Medication Drug Class(es) Dates Sig (Normalized) Sig (Original) acetaminophen 325 mg / HYDROcodone bitartrate 5 mg oral tablet (7 sources) Opioid Agonist Start: 12-19-19 End: 02-09-20 24 take 1 tablet by mouth every six hours as needed for pain Hydrocodone-Acetaminop hen 5-325 mg Tablet Discontinued 1 TAB PO Q6H as needed for Pain 10 December 18, 2021 February 09, 2024 8:34am acetaminophen 325 mg / oxyCODONE hydrochloride 5 mg oral tablet (7 sources) Opioid Agonist Start: 02-23-20 End: 06-21-19 [...] Comment on above: Take 1 capsule by [facility] once daily. amoxicillin 500 mg oral [...] on above: Take 1 capsule by mo [facility] twice daily. docusate sodium 50 mg / sennosides, long-term 8.6 mg oral tablet (7 sources) Start: 02-23-20 End: 06-21-19 take 2 [...] mg / triamterene 37.5 mg oral tablet (7 sources) Potassium-sparing Diuretic, Thiazide Diuretic Start: End: [...] topical cream (1 source) Azole Antifungal Start: End: ketoconazole (NIZORAL) 2 % cream Apply [...] evening. ondansetron 4 mg disintegrating oral tablet (7 sources) Serotonin-3 Receptor Antagonist Start: End: Ondansetron 4 mg Tablet,Disintegrati ng Discontinued 4 MG PO every 6 to 8 hours December 17, 2021 11:00pm February 09, 2024 8:35am oxyCODONE hydrochloride 5 mg oral tablet (6 sources) Opioid Agonist Start: End: oxyCODONE IR (ROXICODONE) 5 mg immediate release tablet Indications: S/P hip replacement, right take 1 every 6 hours as needed for pain 28 tablet 10/24/2021 07/06/2022 Discontinued Comment on above: take 1 every 6 hours as needed for pain rivaroxaban 10 mg oral tablet (1 source) Factor Xa Inhibitor take 1 tablet by mouth once daily Xarelto 10 MG Oral Tablet Take 1 a day Quantity: 90 Refills: 3 Ordered: 10-Apr-2022 DO Active Semaglutide-Weight Management (Wegovy) 1 MG/0.5ML solution auto-injector (7 sources) Start: End: inject 1 mg by subcutaneous injection every week Semaglutide-Weight Management (Wegovy) 1 MG/0.5ML solution auto-injector Indications: Elevated Lp(a) (CMS/HCC) , 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 (CMS/HCC) , Obstructive sleep apnea syndrome , Morbid obesity (CMS/HCC) Inject 1 mg under the skin 1 (one) time per week 2 mL 3 01/19/2024 04/12/2024 Discontinued Start: 01-19-2024 inject 1 mg by subcu taneous injection every week Semaglutide-Weight Management (Wegovy) 1 MG/0.5ML solution auto-injector Indications: Elevated Lp(a) (CMS/HCC) , 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 (CMS/HCC) , Obstructive [...] 1 tablet by kenneth th once daily. Tirzepatide (Mounjaro) 10 MG/0.5ML solution auto-injector (4 sources) End: 07-12-2024 inject 10 mg by subcutaneous injection every week Tirzepatide (Mounjaro) 10 MG/0.5ML solution auto-injector Inject 10 mg under the skin 1 (one) time per week 07/12/2024 Discontinued inject 10 mg by subc utaneous injection every week Tirzepatide (Mounjaro) 10 MG/0.5ML solution auto-injector Inject 10 mg under the skin 1 (one) time per week Active valsartan 160 mg oral tablet (1 source) [...] PLANUS ACQ LT FOOT] Onset: 03-06-2021 Episodic Administrative/social admission (2 sources) Family disruption; Translations: [Disruption of family by separation and divorce] 07-12-2024 Episodic Anxiety disorders (9 sources) Anxiety; Translations: [Anxiety disorder, unspecified] Onset: 08-16-2023 08-16-2023 Chronic Calculus of urinary tract (20 sources) Kidney stone; Translations: [Calculus of kidney] Onset: 05-26-2016 05-26-2016 Episodic Cancer of prostate (14 sources) Malignant tumor of prostate; Translations: [Malignant neoplasm of prostate] Onset: 04-29-2010 04-29-2010 Chronic Cancer of prostate (18 sources) History of malignant neoplasm of prostate; Translations: [Personal history of malignant neoplasm of prostate] Onset: 12-25-2011 12-25-2011 Episodic Chronic ulcer of skin (5 sources) Non-pressure chronic ulcer of other part of left foot with fat layer exposed; Translations: [N-PRS ULCR OTH PRT LT FT FAT EXPOS] Onset: 12-03-2020 Chronic Diabetes mellitus without complication (15 sources) Impaired fasting glycemia; Translations: [Impaired fasting glucose] Onset: 12-30-2022 04-08-2023 Episodic Disorders of lipid metabolism (20 sources) Hypercholesterolemi a; Translations: [Pure hypercholesterolemi a, unspecified] Onset: 12-30-2022 Resolved: 04-14-2024 01-17-2010 Chronic Essential hypertension (20 sources) Essential (primary) hypertension; Translations: [Essential hypertension] Onset: 03-06-2021 09-10-2021 Chronic Genitourinary symptoms and ill-defined conditions (20 sources) Urge incontinence of urine; Translations: [Urge incontinence] Onset: 10-23-2010 10-23-2010 Chronic Heart valve disorders (16 sources) Aortic stenosis, non-rheumatic ; Translations: [Nonrheumatic aortic (valve) stenosis] Onset: 01-19-2024 01-19-2024 Chronic Miscellaneous mental health disorders (13 sources) Not getting enough sleep; Translations: [Insufficient sleep syndrome] Onset: 12-30-2022 04-08-2023 Chronic Nutritional deficiencies (11 sources) Vitamin D deficiency; Translations: [Vitamin D deficiency, unspecified] Onset: 12-30-2022 04-08-2023 Chronic Other and unspecified benign neoplasm (9 sources) History of polyp of colon; Translations: [Personal history of colonic polyps] 06-24-2020 Episodic Other circulatory disease (4 sources) Other specified symptoms and signs involving the circulatory and respiratory systems; Translations: [OTH SPEC SX SIGNS INVLV CIRC RS] Onset: 12-10-2020 Episodic Other connective tissue disease (1 source) History of right total knee replacement; Translations: [Presence of right artificial knee joint] Chronic Other connective tissue disease (5 sources) History of total hip arthroplasty; Translations: [Presence of unspecified artificial hip joint] 02-09-2024 Chronic Other connective tissue disease (5 sources) Presence of unspecified artificial hip joint; Translations: [Hip joint replacement] 02-09-2024 Chronic Other connective tissue disease (1 source) Pain in left foot; Translations: [PAIN IN LEFT FOOT] Onset: 12-26-2020 Episodic Other connective tissue disease (1 source) Pain in right foot; Translations: [PAIN IN RIGHT FOOT] Onset: 12-26-2020 Episodic Other connective tissue disease (5 sources) Trochanteric bursitis; Translations: [Trochanteric bursitis, right hip] 02-09-2024 Episodic Other connective tissue disease (5 sources) Trochanteric bursitis, right hip; Translations: [Enthesopathy of hip region] 02-09-2024 Episodic Other connective tissue disease (1 source) Triggering of digit; Translations: [Trigger finger, right ring finger] 05-10-2024 Episodic Other connective tissue disease (1 source) Trigger finger, right ring finger; Translations: [Trigger finger (acquired)] 05-10-2024 Episodic Other diseases of bladder and urethra (4 sources) Male urethral stricture; Translations: [Unspecified urethral stricture, male, unspecified site] 07-12-2024 Episodic Other hereditary and degenerative nervous system conditions (5 sources) Other idiopathic peripheral autonomic neuropathy; Translations: [OTH IDIO PERIPH AUTONOM NEUROPATHY] Onset: 12-23-2020 Chronic Other lower respiratory disease (4 sources) Dyspnea; Translations: [Shortness of breath] Onset: 04-14-2024 04-14-2024 Episodic Other lower respiratory disease (1 source) Shortness of breath; Translations: [Shortness of breath] Onset: 04-14-2024 Episodic Other male genital disorders (11 sources) Erectile dysfunction co-occurrent and due to arterial insufficiency; Translations: [Erectile dysfunction due to arterial insufficiency] Onset: 2023 04-08-2023 Chronic Other nervous system disorders (14 sources) [...] shoulder] 01-17-2010 Episodic Other non-traumatic joint disorders (12 sources) Heterotopic ossification of joint; Translations: [Other specified joint disorders, unspecified joint] Onset: 07-06-2022 07-06-2022 Episodic Other non-traumatic joint disorders (5 sources) Hip pain; Translations: [Pain in right hip] 02-07-2024 Episodic Other non-traumatic joint disorders (5 sources) Other specified joint disorders, unspecified joint; Translations: [Other specified disorders of joint, site unspecified] 02-09-2024 Episodic Other nutritional; endocrine; and metabolic [...] Chronic Other nutritional; endocrine; and metabolic disorders (13 sources) Morbid obesity; Translations: [Morbid (severe) obesity due to excess calories] Onset: 12-30-2022 04-12-2024 Chronic Other nutritional; endocrine; and metabolic disorders (2 sources) Body mass index (BMI) 35.0-35.9, adult; Translations: [Body mass index (BMI) 35.0-35.9, adult] Onset: 04-14-2024 Chronic Other nutritional; endocrine; and metabolic disorders (11 sources) Hyperuricemia; Translations: [Hyperuricemia without signs of inflammatory arthritis and tophaceous disease] Onset: 08-16-2023 08-16-2023 Episodic Other skin disorders (5 sources) Corns and callosities; Translations: [CORNS AND CALLOSITIES] Onset: 01-01-2021 Episodic Residual codes; unclassified (17 sources) Obstructive sleep apnea syndrome; Translations: [Obstructive [...] Comment on above: pipe smoker - quit ; Spondylosis; intervertebral disc disorders; other back problems (20 sources) Cervical spondylosis without myelopathy; Translations: [Spondylosis without myelopathy or radiculopathy, cervical region] Onset: 12-30-2022 Resolved: 07-12-2024 04-08-2023 Chronic Unclassified (1 source) Low back pain, unspecified; Translations: [Low back pain, unspecified] Onset: 04-26-2024 Past or Other Problems Problem Classification Problem Date Documented Da te Episodic/Chronic Coronary atherosclerosis and other heart disease (11 sources) Coronary arteriosclerosis; Translations: [Atherosclerotic heart disease of mi'kmaq coronary artery without angina pectoris] Onset: 4 Resolved: 5 11-04-2023 Chronic Hyperplasia of prostate (20 sources) Benign prostatic hyperplasia; Translations: [Benign prostatic hyperplasia without lower urinary tract symptoms] Onset: 2 Resolved: 5 06-25-2011 Chronic Joint disorders and dislocations; trauma-related (14 sources) Tear of meniscus of knee; Translations: [Other tear of cartilage or meniscus of knee, current] Onset: 3 01-17-2010 Episodic Nutritional deficiencies (14 sources) Cobalamin deficiency; Translations: [Deficiency of other specified B group vitamins] Onset: 3 04-08-2023 Episodic Osteoarthritis (20 sources) Osteoarthritis of right hip joint; Translations: [Unilateral primary osteoarthritis, right hip] Onset: 0 Resolved: 5 Chronic Other and unspecified benign neoplasm (9 sources) Lipoma of back; Translations: [Benign lipomatous neoplasm of skin and subcutaneous tissue of trunk] Onset: 4 Resolved: 5 11-04-2023 Episodic Other bone disease and musculoskeletal deformities (9 sources) Idiopathic scoliosis of lumbar spine; Translations: [Other idiopathic scoliosis, lumbar region] Onset: 4 Resolved: 5 11-04-2023 Chronic Other bone disease and musculoskeletal deformities (2 sources) Heterotopic ossification; Translations: [Other specified disorders of bone, unspecified site] 02-09-2024 Episodic Other connective tissue disease (20 sources) History of repair of hip joint; Translations: [Presence of right artificial hip joint] Onset: 2 Resolved: 3 Chronic Other connective tissue disease (14 sources) Osteophyte of bone; Translations: [Other shoulder lesions, unspecified shoulder] Onset: 3 01-17-2010 Episodic Other hereditary and degenerative nervous system conditions (13 sources) Restless legs; Translations: [Restless legs syndrome] Onset: 3 Resolved: 5 04-08-2023 Chronic Other male genital disorders (9 sources) Male erectile dysfunction, unspecified; Translations: [Impotence of organic origin] Onset: 4 Resolved: 5 11-04-2023 Chronic Other non-traumatic joint disorders (1 source) Knee joint effusion; Translations: [Effusion, right knee] Episodic Other non-traumatic joint disorders (1 source) Pain in right hip; Translations: [Pain in right hip] Onset: 4 Episodic Other nutritional; endocrine; and metabolic disorders (11 sources) Obese class I; Translations: [Obesity, unspecified] Onset: 2 Resolved: 4 10-01-2021 Chronic Other nutritional; endocrine; and metabolic disorders (9 sources) Disorder of plasma protein metabolism; Translations: [Other disorders of plasma-protein metabolism, not elsewhere classified] Onset: 3 Resolved: 3 12-30-2022 Chronic Other screening for suspected conditions (not mental disorders or infectious disease) (20 sources) Raised prostate specific antigen; Translations: [Elevated prostate specific antigen [PSA]] Onset: 7 Resolved: 4 01-17-2010 Episodic Phlebitis; thrombophlebitis and thromboembolism (9 sources) Thrombophlebitis; Translations: [Phlebitis and thrombophlebitis of unspecified site] Onset: 3 Resolved: 3 12-30-2022 Episodic Spondylosis; intervertebral disc disorders; other back problems (20 sources) Low back pain; Translations: [Low back pain radiating to right leg] Onset: 3 Resolved: 5 01-17-2010 Episodic Superficial injury; contusion (1 source) Contusion of knee; Translations: [Contusion of right knee, subsequent encounter] Episodic Unclassified (2 sources) Onset: 3 Resolved: 4 04-09-2023 Varicose veins of lower extremity (2 sources) Varicose veins of lower limb co-occurrent with edema; Translations: [Varicose veins of bilateral lower extremities with other complications] 02-09-2024 Episodic Results Test Name Value Interpretation Reference Range Facility [facility] echo transthoracicon [facility] echo transthoracic [facility] [place] [address] Echocardiogram Signed Patient: Meera Mckoy MR#: [id number] : 1950 Acct:[id number] Age/Sex: 73 / M ADM Date: 02/11/24 Loc: Room: Type: [facility] Attending Dr: Bib ROBLES Ordering Provider: Bib ROBLES Date of Service: 02/11/24/ E[facility] echo transthoracic: Non-rheumatic . Copies to: MD [...] -------+ Transcribed By: SCV Performed At: 02/11/24 0847 Signed By: Rasheed Myers MD 02/11/24 2145 Normal [facility] XR hip RT min 2V(w/wo pelvis )*on 02-09-2024 XR hip RT min 2V(w/wo pelvis)* [facility] [address] [place] [address] XRay Report Signed Patient: Meera Mckoy MR#: [id number] : 1950 Acct:[id number] Age/Sex: 73 / M ADM Date: 02/09/24 Loc: [facility] [place] Room: Type: [facility] Attending Dr: Mona Lezama II, MD [...] SEEN.. Impression dictated by: Ferdinand Mckeon Jr., D.O.02/09/2024 2:52 PM Dictation Location: [place] [address] Transcribed By: [facility] 02/09/24 145 Dictated By: Ferdinand Mckeon Jr, DO 02/09/24 145 Signed By: 02/09/24 145 Normal [facility] Automated basophil %Ordered By: Essie Izquierdo on 02-04-2024 Basophils/100 WBC (Bld) 0.8 % Normal . [facility] Comment on above: Performed By: #### C BC B12, BMP #### [address] Automated basophil countOrde red By: Essie Izquierdo on 02-04-2024 Basophils (Bld) [#/Vol] 0.0 10*3/uL Normal 0.0-0.2 [facility] Comment on above: Result Comment: PERF ORMED BY: [place] [address] PATHOLOGIST BANKER MASON KENNY SOLITARIO M.D. Performed By: #### C CLAUDIO B12, BMP #### [facility] [address] [place] [address] Automated blood monocyte cou ntOrdered By: Essie Izquierdo on 02-04-2024 Monocytes (Bld) [#/Vol] 0.8 10*3/uL Normal 0.0-0.8 [facility] Comment on above: Performed By: #### C BC, B12, BMP #### [facility] [address] [place] [address] Automated eosinophil %Ordere d By: Essie Izquierdo on 02-04-2024 Eosinophils/100 WBC (Bld) 4.0 % Normal . [facility] Comment on above: Performed By: #### C BC, B12, BMP #### [facility] [address] [place] [address] Automated eosinophil countOr dered By: Essie Izquierdo on 02-04-2024 Eosinophils (Bld) [#/Vol] 0.2 10*3/uL Normal 0.0-0.45 [facility] Comment on above: Performed By: #### C BC, B12, BMP #### [facility] [address] [place] [address] Automated monocyte %Ordered By: Essie Izquierdo on 02-04-2024 Monocytes/100 WBC (Bld) 13.4 % Normal . [facility] Comment on above: Performed By: #### C BC B12, BMP #### [address] Automated neutrophil %Ordere d By: Essie Izquierdo on 02-04-2024 Neutrophils/100 WBC (Bld) 67.2 % Normal . [facility] Comment on above: Performed By: #### C BC, B12, BMP #### [address] Basic Metabolic Panelon 01-13 GFR/1.73 sq M.predicted MDRD (S/P/Bld) [Vol rate/Area] mL/min/{1.73_m2} Normal [facility] Comment on above: Performed By: #### C BC, B12, BMP #### [facility] [facility] [address] [place] [address] Basophils Auto (Bld) [#/Vol] Ordered By: Essie Izquierdo on 02-04-2024 Basophils (Bld) [#/Vol] Automated basoph il count 0.0-0.2 [facility] Basophils/100 WBC Auto (Bld) Ordered By: Essie Camargoverson on 02-04-2024 Basophils/100 WBC (Bld) Automated basophil % . [facility] CBC W Auto Differential pane l (Bld)on 02-04-2024 Basophils (Bld) [#/Vol] 0.0 10*3/uL 0.0 - 0.2 10*3/uL [facility] Basophils/100 WBC Manual cnt (Syn fld) 0.8 % . [facility] Eosinophils (Bld) [#/Vol] 0.2 10*3/uL 0.0 - 0.45 10*3/uL [facility] Eosinophils/100 WBC Manual cnt (Syn fld) 4.0 % . [facility] Erythrocyte distribution width (RBC) [Ratio] 12.9 % 12.0 - 14.8 % [facility] Hematocrit (Bld) [Volume fraction] 40.3 % 38.8 - 50.0 % [facility] Hemoglobin (Bld) [Mass/Vol] 13.8 g/dL 13.0 - 17.0 g/dL [facility] Interpretation and review of laboratory results Abnormal [facility] Lymphocytes (Bld) [#/Vol] 0.9 10*3/uL Low 1.00 - 4.8 10*3/uL [facility] Lymphocytes/100 WBC Manual cnt (Syn fld) 14.6 % . [facility] MCH (RBC) [Entitic mass] 33.5 pg 27.5 - 35.2 pg [facility] MCHC (RBC) [Mass/Vol] 34.3 g/dL 32.5 - 35.6 g/dL [facility] MCV (RBC) [Entitic vol] 97.7 fL 83.5 - 101 fL [facility] Monocytes (Bld) [#/Vol] 0.8 10*3/uL 0.0 - 0.8 10*3/uL [facility] Monocytes+Macrophages/1 00 WBC Manual cnt (Syn fld) 13.4 % . [facility] Neutrophils (Bld) [#/Vol] 4.1 10*3/uL 1.8 - 7.7 10*3/uL [facility] Neutrophils/100 WBC Manual cnt (Syn fld) 67.2 % . [facility] NRBC 0.1 /100{WBC} 0 - 0.5 /100{WBC} [facility] Platelet mean volume (Bld) [Entitic vol] 9.4 fL 6.6 - 10.1 fL [facility] Platelets (Bld) [#/Vol] 192 10*3/uL 150 - 450 10*3/uL [facility] RBC LM.HPF (Urine sed) [#/Area] 4.12 /[HPF] 3.90 - 5.60 [facility] WBC (Bld) [#/Vol] 6.1 10*3/uL 4.1 - 10.5 10*3/uL [facility] WBC LM.HPF (Urine sed) [#/Area] 6.1 10*3/uL 4.1 - 10.5 10*3/uL [facility] Calcium [Mass/volume] in Ser um or PlasmaOrdered By: Essie Izquierdo on 02-04-2024 Calcium [Mass/Vol] 9.3 mg/dL Normal 8.6-10.3 [facility] Comment on above: Performed By: #### C BC, B12, BMP #### [facility] [address] Calcium [Mass/Vol] Calcium [Mass/volume ] in Serum or Plasma 8.6-10.3 [facility] Carbon dioxide, total [Moles /volume] in Serum or PlasmaOrdered By: Essie Izquierdo on 02-04-2024 CO2 [Moles/Vol] 27.3 mmol/L Normal 21.0-31.0 [facility] Comment on above: Performed By: #### C BC, B12, BMP #### [facility] [address] CO2 [Moles/Vol] Carbon dioxide, tota l [Moles/volume] in Serum or Plasma 21.0-31.0 [facility] Chloride [Moles/volume] in S rossy or PlasmaOrdered By: Essie Izquierdo on 02-04-2024 Chloride [Moles/Vol] 106 mmol/L Normal 98-107 [facility] Comment on above: Performed By: #### C BC, B12, BMP #### [facility] [address] [place] [id number] [place] Chloride [Moles/Vol] Chloride [Moles/volume] in Serum or Plasma 98-107 [facility] Complete Blood Count Auto Di ffon 02-04-2024 Mean Corpuscular HGB Conc 34.3 g/dL Normal 32.5-35.6 [facility] Comment on above: Performed By: #### C CLAUDIO B12, BMP #### [facility] [address] NRBC% 0.1 /100{WBC} Normal 0-0.5 [facility] Comment on above: Performed By: #### C CLAUDIO, B12, BMP #### [facility] [address] Creatinine [Mass/volume] in Serum or PlasmaOrdered By: Essie Izquierdo on 02-04-2024 Creatinine [Mass/Vol] 0.96 mg/dL Normal 0.70-1.30 [facility] Comment on above: Performed By: #### C CLAUDIO B12, BMP #### [facility] [address] Creatinine [Mass/Vol] Creatinine [Mass/volume] in Serum or Plasma 0.70-1.30 [facility] Eosinophils Auto (Bld) [#/Vo l]Ordered By: Essie Izquierdo on 02-04-2024 Eosinophils (Bld) [#/Vol] Automated eosinophil count 0.0-0.45 [facility] Eosinophils/100 WBC Auto (Bl d)Ordered By: Essie Izquierdo on 02-04-2024 Eosinophils/100 WBC (Bld) Automated eosinophil % . [facility] Erythrocyte distribution wid th Auto (RBC) [Ratio]Ordered By: Essie Toribio on 02-04-2024 Erythrocyte distribution width (RBC) [Ratio] Erythrocyte distribution width [Ratio] by Automated count 12.0-14.8 [facility] Erythrocyte distribution wid th [Ratio] by Automated countOrdered By: Essie Izquierdo on 02-04-2024 Erythrocyte distribution width (RBC) [Ratio] 12.9 % Normal 12.0-14.8 [facility] Comment on above: Performed By: #### C BC, B12, BMP #### [facility] [address] [place] [address] [place] Erythrocytes [#/volume] in B lood by Automated countOrdered By: Essie Izquierdo on 02-04-2024 RBC (Bld) [#/Vol] 4.12 10*6/uL Normal 3.90-5.60 [facility] Comment on above: Performed By: #### C Lake SNYDER, ANGE #### [facility] [address] Glucose [Mass/volume] in Ser um or PlasmaOrdered By: Essie Izquierdo on 02-04-2024 Glucose [Mass/Vol] 90 mg/dL Normal 70-100 [facility] Comment on above: ADA recommended refe rence rangeRandom Glucose Reference Range is dependent on time and content of last meal. Glucose of more than 200 mg/dL in a nonstressed, ambulatory subject supports the diagnosis of Diabetes Mellitus. Result Comment: [place] Glucose Reference Range is dependent on time and content of last meal. Glucose of more than 200 mg/dL in a nonstressed, ambulatory subject supports the diagnosis of Diabetes Mellitus. ADA recommended reference range Performed By: #### C Lake SNYDER, BMP #### [facility] [address] [place] [id number] [facility] Glucose [Mass/Vol] Glucose [Mass/volume ] in Serum or Plasma 70-100 [facility] Comment on above: ADA recommended refe rence rangeRandom Glucose Reference Range is dependent on time and content of last meal. Glucose of more than 200 mg/dL in a nonstressed, ambulatory subject supports the diagnosis of Diabetes Mellitus. Hematocrit Auto (Bld) [Volum e fraction]Ordered By: Essie Izquierdo on 02-04-2024 Hematocrit (Bld) [Volume fraction] Hematocrit [Volume Fraction] of Blood by Automated count 38.8-50.0 [facility] Hematocrit [Volume Fraction] of Blood by Automated countOrdered By: Essie Izquierdo on 02-04-2024 Hematocrit (Bld) [Volume fraction] 40.3 % Normal 38.8-50.0 [facility] Comment on above: Performed By: #### C CLAUDIO, B12, BMP #### [facility] [address] Hemoglobin [Mass/volume] in BloodOrdered By: Essie Izquierdo on 02-04-2024 Hemoglobin (Bld) [Mass/Vol] 13.8 g/dL Normal 13.0-17.0 [facility] Comment on above: Performed By: #### C CLAUDIO B12, BMP #### [facility] [address] Hemoglobin (Bld) [Mass/Vol] Hemoglobin [Mass/volume] in Blood 13.0-17.0 [facility] Leukocytes [#/volume] correc saul for nucleated erythrocytes in Blood by Automated counOrdered By: Essie Izquierdo on 02-04-2024 WBC corrected for nucl RBC Auto (Bld) [#/Vol] 6.1 10*3/uL 4.1-10.5 [facility] WBC corrected for nucl RBC Auto (Bld) [#/Vol] Leukocytes [#/volume] corrected for nucleated erythrocytes in Blood by Automated coun 4.1-10.5 [facility] Leukocytes [#/volume] in Blo od by Automated countOrdered By: Essie Toribio on 02-04-2024 WBC (Bld) [#/Vol] 6.1 10*3/uL Normal 4.1-10.5 [facility] Comment on above: Performed By: #### C Lake SNYDER, BMP #### [facility] [address] [place] [address] Lymphocytes Auto (Bld) [#/Vo l]Ordered By: Essie Izquierdo on 02-04-2024 Lymphocytes (Bld) [#/Vol] Lymphocytes [#/volume] in Blood by Automated count Low 1.00-4.8 [facility] Lymphocytes [#/volume] in Bl ood by Automated countOrdered By: Essie Toribio on 02-04-2024 Lymphocytes (Bld) [#/Vol] 0.9 10*3/uL Low 1.00-4.8 [facility] Comment on above: Performed By: #### C BC, B12, BMP #### [facility] [address] [place] [address] [place] Lymphocytes/100 WBC Auto (Bl d)Ordered By: Essie Izquierdo on 02-04-2024 Lymphocytes/100 WBC (Bld) Lymphocytes/100 leukocytes in Blood by Automated count . [facility] Lymphocytes/100 leukocytes i n Blood by Automated countOrdered By: Essie Izquierdo on 02-04-2024 Lymphocytes/100 WBC (Bld) 14.6 % Normal . [facility] Comment on above: Performed By: #### C BC, B12, BMP #### [facility] [address] [place] [address] MCH Auto (RBC) [Entitic mass ]Ordered By: Essie Izquierdo on 02-04-2024 MCH (RBC) [Entitic mass] MCH [Entitic mass] by Automated count 27.5-35.2 [facility] MCH [Entitic mass] by Automa saul countOrdered By: Essie Izquierdo on 02-04-2024 MCH (RBC) [Entitic mass] 33.5 pg Normal 27.5-35.2 [facility] Comment on above: Performed By: #### C BC, B12, BMP #### [address] MCHC Auto (RBC) [Mass/Vol]Or dered By: Essie Izquierdo on 02-04-2024 MCHC (RBC) [Mass/Vol] 34.3 g/dL 32.5-35.6 [facility] MCHC (RBC) [Mass/Vol] MCHC [Mass/volume] by Automated count 32.5-35.6 [facility] MCV Auto (RBC) [Entitic vol] Ordered By: Essie Izquierdo on 02-04-2024 MCV (RBC) [Entitic vol] MCV [Entitic vol ume] by Automated count 83.5-101 [facility] MCV [Entitic volume] by Auto mated countOrdered By: Essie Izquierdo on 02-04-2024 MCV (RBC) [Entitic vol] 97.7 fL Normal 83.5-101 F [facility] Comment on above: Performed By: #### C BC, B12, BMP #### [address] [place] [address] [place] Monocytes Auto (Bld) [#/Vol] Ordered By: Essie Izquierdo on 02-04-2024 Monocytes (Bld) [#/Vol] Automated blood monocyte count 0.0-0.8 [facility] Monocytes/100 WBC Auto (Bld) Ordered By: Essie Izquierdo on 02-04-2024 Monocytes/100 WBC (Bld) Automated monocyte % . [facility] Neutrophils Auto (Bld) [#/Vo l]Ordered By: Essie Izquierdo on 02-04-2024 Neutrophils (Bld) [#/Vol] Neutrophils [#/volume] in Blood by Automated count 1.8-7.7 [facility] Neutrophils [#/volume] in Bl ood by Automated countOrdered By: Essie Toribio on 02-04-2024 Neutrophils (Bld) [#/Vol] 4.1 10*3/uL Normal 1.8-7.7 [facility] Comment on above: Performed By: #### C BC, B12, BMP #### [facility] [address] [place], [place] [id number] [facility] Neutrophils/100 WBC Auto (Bl d)Ordered By: Essie Izquierdo on 02-04-2024 Neutrophils/100 WBC (Bld) Automated neutrophil % . [facility] No Panel InformationOrdered By: Essie Izquierdo on 02-04-2024 Estimated GFR (CKD-EPI) > 60.0 mL/Min [facility] Creatinine Clearance (Chem N/A [facility] Nucleated erythrocytes [Pres ence] in Blood by Automated countOrdered By: Essie Izquierdo on 02-04-2024 Nucleated RBC Auto Ql (Bld) 0.1 /100{WBC} 0-0.5 [facility] Nucleated RBC Auto Ql (Bld) Nucleated erythrocytes [Presence] in Blood by Automated count 0-0.5 [facility] Platelet mean volume Auto (B ld) [Entitic vol]Ordered By: Essie Izquierdo on 02-04-2024 Platelet mean volume (Bld) [Entitic vol] Platelet mean volume [Entitic volume] in Blood by Automated count 6.6-10.1 [facility] Platelet mean volume [Entiti c volume] in Blood by Automated countOrdered By: Essie Izquierdo on 02-04-2024 Platelet mean volume (Bld) [Entitic vol] 9.4 fL Normal 6.6-10.1 [facility] Comment on above: Performed By: #### C CLAUDIO B12, BMP #### [facility] [address] Platelets Auto (Bld) [#/Vol] Ordered By: Essie Izquierdo on 02-04-2024 Platelets (Bld) [#/Vol] Platelets [#/vol ume] in Blood by Automated count 150-450 [facility] Platelets [#/volume] in Bloo d by Automated countOrdered By: Essie Toribio on 02-04-2024 Platelets (Bld) [#/Vol] 192 10*3/uL Normal 150-450 [facility] Comment on above: Performed By: #### C CLAUDIO B12, BMP #### [facility] [address] Potassium [Moles/volume] in Serum or PlasmaOrdered By: Essie Izquierdo on 02-04-2024 Potassium [Moles/Vol] 4.3 mmol/L Normal 3.5-5.1 [facility] Comment on above: Performed By: #### C CLAUDIO B12, BMP #### [facility] [address] Potassium [Moles/Vol] Potassium [Moles/volume] in Serum or Plasma 3.5-5.1 [facility] RBC Auto (Bld) [#/Vol]Ordere d By: Essie Izquierdo on 02-04-2024 RBC (Bld) [#/Vol] Erythrocytes [#/volume] in Blood by Automated count 3.90-5.60 [facility] Serum or plasma anion gap de terminationOrdered By: Essie Izquierdo on 08-23-2024 Anion gap [Moles/Vol] 11.0 mmol/L Normal 6.0-15.0 [facility] Comment on above: Performed By: #### C BC, B12, BMP #### [facility] [address] [place] [address] Anion gap [Moles/Vol] Serum or plasma an ion gap determination 6.0-15.0 [facility] Sodium [Moles/volume] in Ser um or PlasmaOrdered By: Essie Izquierdo on 02-04-2024 Sodium [Moles/Vol] 140 mmol/L Normal 136-145 [facility] Comment on above: Performed By: #### C BC, B12, BMP #### [address] Sodium [Moles/Vol] Sodium [Moles/volume ] in Serum or Plasma 136-145 [facility] Urea nitrogen [Mass/volume] in Serum or PlasmaOrdered By: Essie Toribio on 02-04-2024 Urea nitrogen [Mass/Vol] 20 mg/dL Normal 01-05 [facility] Comment on above: Performed By: #### C BC, B12, BMP #### [facility] [address] [place] [address] Urea nitrogen [Mass/Vol] Urea nitrogen [Mass/volume] in Serum or Plasma 01-05 [facility] Vitamin B12 ser/plasOrdered By: Essie Izquiedro on 02-04-2024 Cobalamin (Vitamin B12) [Mass/Vol] 224 pg/mL Normal 180-4 [facility] Comment on above: Result Comment: PERF ORMED BY: [place] [address] PATHOLOGIST BANKER MASON KENNY SOLITARIO M.D. Performed By: #### C BC, B12, BMP #### [address] Cobalamin (Vitamin B12) [Mass/Vol] Vitamin B12 ser/plas 180-4 [facility] WBC Auto (Bld) [#/Vol]Ordere d By: Essie Izquierdo on 02-04-2024 WBC (Bld) [#/Vol] Leukocytes [#/volume ] in Blood by Automated count 4.1-10.5 [facility] XR Pelvis APon 07-06-2022 IMPRESSION: Intact right hip arthroplasty. Increased heterotopic ossification. Lacquer Dipping 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: TAPAN Transcribe Date/Time: Jul 06 2022 9:58A Dictated by : GORDO ANDRE MD This examination was interpreted and the report reviewed and electronically signed by: GORDO ANDRE MD on Jul 06 2022 9:59AM [facility] DIVISION OF RADIOLOGY * * *Final Report* [...] Intact right hip arthroplasty. Increased heterotopic ossification. Lacquer Dipping 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: TAPAN Transcribe Date/Time: Jul 06 2022 9:58A Dictated by : GORDO ANDRE MD This examination was interpreted and the report reviewed and electronically signed by: GORDO ANDRE MD on Jul 06 2022 9:59AM EST [facility] Radiology Study observation (narrative) [facility] XR Pelvis APOrdered By: Ccf Provider on 07-06-2022 [facility] Office Visit (Cardiology)on 04-10-2022 Follow-up visit [...] lose weight.; Status:Complete - Retrospective Authorization; Done: [id number] Essential hypertension, benign Changed: From Losartan Potassium 100 MG Oral Tablet To Losartan Potassium 100 MG Oral Tablet TAKE 1 TABLET DAILY Essential hypertension, benign, Hyperlipidemia Renew: Aspirin EC 81 MG Oral Tablet Delayed Release; TAKE 1 TABLET DAILY Hyperlipidemia Renew: Atorvastatin Calcium 40 MG Oral Tablet; TAKE 1 TABLET BY MOUTH EVERY DAY SocHx: Former smoker Tobacco Use Screening; Status:Complete; Done: [id number] Patient Instructions Please bring all medicines, vitamins, [...] Problems History of Complete colonoscopy Managed By: Meear Templeton DO History of Corneal lasik History [...] Recorded: 10Apr2022 11:29AM Heart Rate68, R Radial Ijerigbv883, RUE, Sitting Pusnthipf43, RUE, Sitting Height5 ft 11 in Iyohlt791 lb BMI Gbtcqlfbio76.8 kg/m2 BSA Calculated2.23 Tobacco Useb) No PHQ-2 #1. Over the last 2 weeks have you felt down, depressed or hopeless? (If yes, answer PHQ-9 below)No PHQ (more content not included)... 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 Prominent developing heterotopic ossifications. Lacquer Dipping 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: PSCJohn Transcribe Date/Time: Jan 16 2022 1:35P Dictated by : LILLI BEAULIEU MD This examination was interpreted and the report reviewed and electronically signed by: LILLI BEAULIEU MD on Jan 16 2022 1:36PM EST [id number] Normal [facility] XR Pelvis APon 01-16-2022 IMPRESSION: Right hip arthroplasty without complication. Prominent developing heterotopic ossifications. Lacquer Dipping 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: TAPAN Transcribe Date/Time: Jan 16 2022 1:35P [...] the prostate. ZZZ_DO_NOT_US E_DIVISION OF RADIOLOGY [facility] * * *Final Report* * [...] arthroplasty without complication. Prominent developing heterotopic ossifications. 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 Normal [facility] XR PELVIS 1V APon 10-29-2021 XR PELVIS [...] lumbar spine. IMPRESSION: Intact right hip arthroplasty Lacquer Dipping 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: [facility] Transcribe Date/Time: Oct 29 2021 12:35P Dictated by : RICKY JAMISON DO This examination was interpreted and the report reviewed and electronically signed by: WOJCIECH IBARRA MD on Oct 29 2021 1:43PM EST [id number] Normal [facility] XR Pelvis APon 10-29-2021 IMPRESSION: Intact right hip arthroplasty Lacquer Dipping 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: TAPAN Transcribe Date/Time: Oct 29 2021 12:35P [...] lumbar spine. ZZZ_DO_NOT_US E_DIVISION OF RADIOLOGY Provider, Daniel Carrera - 10/29/2021 * * *Final Report* * [...] spine. IMPRESSION IMPRESSION: Intact right hip arthroplasty Lacquer Dipping 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: PSCB Transcribe Date/Time: Oct 29 2021 12:35P Dictated by : RICKY JAMISON DO This examination was interpreted and the report reviewed and electronically signed by: WOJCIECH IBARRA MD on Oct 29 2021 1:43PM [facility] Radiology Study observation (narrative) [facility] XR Pelvis APOrdered By: Ccf Provider on 10-29-2021 [facility] CNOVon 10-24-2021 CNOV Office Visit (LOORRM ) TIMMYMEERA ([id number]) 1950 M Date Time Provider Department 10/24/21 12:45 PM LORNA NGOORRDarleen During your visit today, we recorded the [...] 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] 02/11/2010 Osteoarth NOS-l/leg [HSV3581] 04/07/2010 Malignant neoplasm of prostate (HCC) [C61] [...] for Encounter Date Provider Department Center 10/24/2021 [id number] NGO Encounter Status:Closed by LORNA NGO on 10/29/21 Normal [facility] Basic metabolic 2000 panelon 10-08-2021 Anion gap [Moles/Vol] 9 mmol/L Normal 9-18 [facility] Comment on above: Order Comment: Speci men Type: BLOOD SPECIMENOrdering Facility: [facility] Address: [address] [place] [address] Performed By: #### 2 4321-2 ####[facility]ORY[facility]IA [id number] [place] [address] [place] Calcium [Mass/Vol] 8.9 mg/dL Normal 8.5-10.2 [facility] Comment on above: Order Comment: Speci men Type: BLOOD SPECIMENOrdering Facility: [facility] Address: [address] [place] [address] Performed By: #### 2 4321-2 ####[facility]ORATORYCLIA [id number] [place] [address] [place] Chloride [Moles/Vol] 102 mmol/L Normal 97-105 [facility] Comment on above: Order Comment: Speci men Type: BLOOD SPECIMENOrdering Facility: [facility] Address: [address] [place] [address] Performed By: #### 2 4321-2 ####[facility]ORATORYCLIA [id number] [place] [address] [place] CO2 [Moles/Vol] 25 mmol/L Normal 22-30 [facility] Comment on above: Order Comment: Speci men Type: BLOOD SPECIMENOrdering Facility: [facility] Address: [address] [place] [address] Performed By: #### 2 4321-2 ####[facility] [id number] [place] [address] [place] Creatinine [Mass/Vol] 1.01 mg/dL Normal 0.73-1.22 [facility] Comment on above: Order Comment: Speci men Type: BLOOD SPECIMENOrdering Facility: [facility] Address: [address] [place] [address] Performed By: #### 2 4321-2 ####[facility]ORATORYCLIA [id number] [address] [place] ESTIMATED GLOMERULAR FILTRATION RATE 80 mL/min/1.73m??? Normal >=60 [facility] Comment on above: Order Comment: Speci men Type: BLOOD SPECIMENOrdering Facility: [facility] Address: [address] [place] [address] Result Comment: Pam mated Glomerular Filtration Rate [...] actual GFR. Performed By: #### 2 4321-2 ####[facility]ITALIA [id number] [place] [address] [place] Glucose [Mass/Vol] 126 mg/dL High 74-99 [facility] Comment on above: Order Comment: Césari men Type: BLOOD SPECIMENOrdering Facility: [facility] Address: [address] [place] [address] Result Comment: The [place] Diabetes [employer] (ADA) provides guidance for cutoff [...] Standards of Medical Care in Diabetes 2016, [place] [employer]. Diabetes Care. 2016.39(Suppl 1). Performed By: #### 2 4321-2 ####[facility] [id number] [place] [address] [place] Potassium [Moles/Vol] 4.3 mmol/L Normal 3.7-5.1 [facility] Comment on above: Order Comment: Jose David mina Type: BLOOD SPECIMENOrdering Facility: [facility] Address: [address] [place] [address] Performed By: #### 2 4321-2 ####[facility] [id number] [place] [address] [place] [place] Sodium [Moles/Vol] 136 mmol/L Normal 136-144 [facility] Comment on above: Order Comment: Césari men Type: BLOOD SPECIMENOrdering Facility: [facility] Address: [address] [place] [address] Performed By: #### 2 4321-2 ####[facility] [id number] [place] [id number] [place] Urea nitrogen [Mass/Vol] 22 mg/dL Normal 9-24 [facility] Comment on above: Order Comment: Speci men Type: BLOOD SPECIMENOrdering Facility: [facility] Address: [address] [place], [place] [address] Performed By: #### 2 4321-2 ####[facility]ORATORYCLIA [id number] [place] [address] [place] CBC panel Auto (Bld)on 10-08 Erythrocyte distribution width (RBC) [Ratio] 12.3 % Normal 11.5-15.0 [facility] Comment on above: Order Comment: Speci men Type: BLOOD SPECIMENOrdering Facility: [facility] Address: [address] [place] [address] Performed By: #### 5 8410-2 ####[facility] LABORATORYIA [id number] [address] [place] Hematocrit (Bld) [Volume fraction] 35.7 % Low 39.0-51.0 [facility] Comment on above: Order Comment: Speci men Type: BLOOD SPECIMENOrdering Facility: [facility] Address: [address] [place], [place] [address] Performed By: #### 5 8410-2 ####[facility] LABORATORYIA [id number] [place] [address] [place] Hemoglobin (Bld) [Mass/Vol] 12.2 g/dL Low 13.0-17.0 [facility] Comment on above: Order Comment: Speci men Type: BLOOD SPECIMENOrdering Facility: [facility] Address: [address] [place], [place] [address] Performed By: #### 5 8410-2 ####[facility] LABORATORYIA [id number] [place] [id number] [place] MCH (RBC) [Entitic mass] 33.0 pg Normal 26.0-34.0 [facility] Comment on above: Order Comment: Speci men Type: BLOOD SPECIMENOrdering Facility: [facility] Address: [address] [place], [place] [address] Performed By: #### 5 8410-2 ####[facility] [id number] [place] [id number] [place] MCHC (RBC) [Mass/Vol] 34.2 g/dL Normal 30.5-36.0 [facility] Comment on above: Order Comment: Speci men Type: BLOOD SPECIMENOrdering Facility: [facility] Address: [address] [place], [place] [address] Performed By: #### 5 8410-2 ####[facility] [id number] [place] [id number] [place] MCV (RBC) [Entitic vol] 96.5 fL Normal 80.0-100.0 [facility] Comment on above: Order Comment: Speci men Type: BLOOD SPECIMENOrdering Facility: [facility] Address: [address] [place], [place] [address] Performed By: #### 5 8410-2 ####[facility] [id number] [place] [address] [place] Nucleated RBC (Bld) [#/Vol] 10*3/uL Normal <0.01 [facility] Comment on above: Order Comment: Speci men Type: BLOOD SPECIMENOrdering Facility: [facility] Address: [address] [place], [place] [address] Performed By: #### 5 8410-2 ####[facility] [id number] [address] [place] Platelet mean volume (Bld) [Entitic vol] 10.8 fL Normal 9.0-12.7 [facility] Comment on above: Order Comment: Speci men Type: BLOOD SPECIMENOrdering Facility: [facility] Address: [address] [place], [place] [address] Performed By: #### 5 8410-2 ####[facility] [id number] [place] [id number] [place] Platelets (Bld) [#/Vol] 235 10*3/uL Normal 150-400 [facility] Comment on above: Order Comment: Speci men Type: BLOOD SPECIMENOrdering Facility: [facility] Address: [address] [place], [place] [address] [address] Performed By: #### 5 8410-2 ####[facility] LABORATORYCLIA [id number] [place] [id number] [place] RBC (Bld) [#/Vol] 3.70 10*6/uL Low 4.20-6.00 [facility] Comment on above: Order Comment: Speci men Type: BLOOD SPECIMENOrdering Facility: [facility] Address: [address] [place] [address] Performed By: #### 5 8410-2 ####[facility]ORATORYCLIA [id number] [facility] [id number] [facility] WBC (Bld) [#/Vol] 16.82 10*3/uL High 3.70-11.00 [facility] Comment on above: Order Comment: Césari men Type: BLOOD SPECIMENOrdering Facility: [facility] Address: [address] [place] [address] Performed By: #### 5 8410-2 ####[facility] LABORATORYIA [id number] [facility] [id number] [facility] CNDSon 10-08-2021 CNDS HNO ID: [id number] Author: NELSON Kay Service: Orthopaedic Surgery Author Type: Physician Boiler Inspector Type: Discharge Summary Filed: 10/08/2021 11:14 AM [...] Provider Location Dept Phone 10/29/2021 9:00 AM JENIJEEVANLORNAHARDIK Elizabeth [phone] 11/07/2021 12:00 PM GORDO NOVA [phone] SIGNATURE: NELSON Kay PATIENT NAME: Meera Mckoy DATE: 10/08/21 TIME: 9:05 AM Normal [facility] NURSING PROGon 10-08-2021 NURSING PROG HNO ID: [id number] Author: Dian Torres RN Service: ? Author Type: Registered Nurse Type: Nursing Progress Note Filed: 10/08/2021 4:39 AM Note Text: Nursing Progress Note Patient Name: Meera Mckoy Patient Location[place] [address] [address] __ Daily Note:Pt OOB with assist and a walker X3. Up to the bathroom X2. Ambulated to the end of the hallway and back X2. This note was completed by: Dian Torres [facility] THERAPY NTon 10-08-2021 THERAPY NT HNO ID: [id number] Author: Yuki Whitman OT/L Service: ? Author Type: Occupational Therapist Type: Therapy (PT/OT/Speech/Resp) Filed: 10/08/2021 12:18 PM Note Text: Occupational Therapy Evaluation SERVICE DATE: 10/08/2021 SERVICE TIME: 1051 to 1200 ROOM: [place] [address] Patient cleared to DC from OT standpoint. 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 Given info to order sock aid. Spouse [...] (ADL);General symptoms and signs-other Interventions Provided: Evaluation;Self Mcc Management (92472) $ Evaluation-Low (32787) Billed Units: 1 unit Self Mcc Management (28550) Treatment Minutes: 54 $ Self Mcc Management (30342) Billed Units: 4 units Training AND education [...] 54 Skilled (more content not included)... Normal [facility] THERAPY NT HNO ID: [id number] Author: Damari Ordoñez, PT Service: Physical Therapy Author Type: Physical Therapist Type: Therapy (PT/OT/Speech/Resp) Filed: 10/08/2021 10:53 AM Note Text: Physical Therapy Treatment SERVICE DATE: 10/08/2021 SERVICE TIME: 0957 to 1040 ROOM: [place] [address] Recommended Discharge Disposition: Outpatient Physical Therapy Recommended [...] lilia, cueing to correct forward trunk flexion) -HLM: 7: Walk 25 feet or more Learning/Educational [...] gait and mobility-other Interventions Provided: Therapeutic Exercise (35595);Therapeutic Activity (77858);Gait Training (39123) Therapeutic Exercise (02543) Treatment Minutes: 15 $ Therapeutic Exercise (47093) Billed Units: 1 unit Review of written [...] crossing legs (more content not included)... Normal [facility] ANES POSTPROC EVALon 022 ANES POSTPROC EVAL HNO ID: [id number] Author: Arnulfo Bianchi MD Service: Anesthesiology Author Type: Physician Type: Anesthesia Postprocedure Evaluation Filed: 10/07/2021 12:48 PM Note Text: POST ANESTHESIA EVALUATION NOTE : 1950 Procedure Summary Date: 10/07/21 Room / Location: OR03 / OR Anesthesia Start: 916 Anesthesia Stop: 120 [...] October 07, 2021 TIME: 12:48 PM CSN: [id number] [facility] ANES PRE-OPon 10-07-2021 ANES PRE-OP HNO ID: [id number] Author: Arnulfo Bianchi MD Service: Anesthesiology Author [...] and consent discussed: yes. Patient / Responsible Constitution Party agrees to proceed: yes Patient / [...] October 07, 2021 TIME: 8:27 AM CSN: [id number] [facility] CONFIRM BLOOD TYPEon 022 ABO O [facility] Comment on above: Order Comment: Speci men Type: BLOOD SPECIMENOrdering Facility: [facility] Address: [address] [place] [address] Performed By: #### C ONABO ####[facility] BANKCLIA [id number] [place] [address] [facility] [place] Rh Nom (Bld) Positive Normal [facility] Comment on above: Order Comment: Speci men Type: BLOOD SPECIMENOrdering Facility: [facility] Address: [address] [place] [address] Performed By: #### C ONABO ####[facility]LO[facility] BANKCLIA [id number] [place] [address] [place] OPERATIVE NOon 10-07-2021 OPERATIVE NO HNO ID: [id number] Author: Gordo Nova MD Service: Orthopaedic Surgery Author Type: Physician Type: Operative Report Filed: 10/07/2021 11:32 AM Note Text: [facility] OPERATIVE REPORT PATIENT NAME: Meera Mckoy AGE: [age] year old LOG ID: [id number] Surgery Date: 10/07/2021 SURGEON: Gordo Nova MD TUNGSTEN REFINER: Lorna Ngo PA-C, SA, her assistance consisted [...] banked allogenic blood if medically necessary. IMPLANTS: [employer] Total Hip System SIZE TYPE Acetabulum [...] * I (more content not included)... Normal [facility] THERAPY [facility] 10-07-2021 THERAPY NT HNO ID: [id number] Author: Damari Ordoñez, PT Service: Physical Therapy Author Type: Physical Therapist Type: Therapy (PT/OT/Speech/Resp) Filed: 10/07/2021 5:26 PM Note Text: Physical Therapy Evaluation SERVICE DATE: 10/07/2021 SERVICE TIME: 1633 to 1714 ROOM: [place] [address] Recommended Discharge Disposition: Outpatient Physical Therapy Recommended [...] Ana Lilia decreased;Step length decreased;Flexed trunk posture -[facility]: 7: Walk 25 feet or more Learning/Educational [...] gait and mobility-other Interventions Provided: Evaluation;Therapeutic Exercise (99588);Gait Training (68340) $ Evaluation-Low (60194) Billed Units: 1 unit Therapeutic Exercise (25553) Treatment Minutes: 15 $ Therapeutic Exercise (28351) Billed Units: 1 unit Pt instructed in [...] verbalized understand (more content not included)... Normal [facility] XR PELVIS 1V APon 10-07-2021 XR [...] IMPRESSION: STATUS POST RIGHT TOTAL HIP REPLACEMENT. Lacquer Dipping 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: TAPAN Transcribe Date/Time: Oct 07 2021 12:45P Dictated by : LISETH MAN MD This examination was interpreted and the report reviewed and electronically signed by: LISETH MAN MD on Oct 07 2021 12:46PM EST [id number] [facility] SARS-CoV-2 RNA Resp Ql CHIRAG+p robeon 10-04-2021 SARS-CoV-2 (COVID-19) RNA CHIRAG+probe Ql (Resp) COVID 19 RESULT: SARS-CoV-2 (Agent of COVID-19) Not Detected by RT-PCR or equivalent method. This test was developed and its performance characteristics determined by [facility]'s Mona Galvin [facility] Pathology and Laboratory Medicine [place]. This test has been authorized by FDA under an Emergency Use Authorization (EUA). This test has been validated in accordance with the FDA's Guidance Document Policy for Diagnostics Testing in Laboratories Certified to Perform High Complexity Testing under CLIA prior to Emergency use Authorization for Coronavirus Disease 2019 during the Public Health Emergency issued on August 12, 2019. Test performed by [facility], Mona Rios Pathology and Laboratory Medicine [place], [address] [place] [id number]. Normal [facility] Comment on above: Performed By: #### 9 4500-6 ####[facility] LABCLIA [id number] [facility] [id number] OF [facility] Comprehensive Metabolic Pane rufino 09-26-2021 Albumin [Mass/Vol] 4.6 g/dL Normal 3.6-5.1 [facility] Specialist Comment on above: Performed By: #### C MP #### [facility] [address] [place], [place] [id number] Albumin/Globulin [Mass ratio] 2.6 {ratio} High 1.0-2.5 [facility] Comment on above: Performed By: #### C MP #### [facility] [address] [place], [place] [id number] ALP [Catalytic activity/Vol] 79 U/L Normal 40-129 [facility] Comment on above: Performed By: #### C MP #### [facility] [address] [place], [place] [id number] ALT [Catalytic activity/Vol] 26 U/L Normal 9-46 [facility] Comment on above: Result Comment: 05/14 Female reference range changed. Performed By: #### C MP #### [facility] [address] [place], [place] [id number] Anion gap [Moles/Vol] 20 mmol/L Normal 12-20 [facility] Comment on above: Result Comment: Effe ctive 06/19/2019 reference range changed. Performed By: #### C MP #### [facility] [address] [place], [place] [id number] AST [Catalytic activity/Vol] 24 U/L Normal 10-40 [facility] Specialist Comment on above: Performed By: #### C MP #### [facility] [address] [place], [place] [id number] Bilirubin [Mass/Vol] 0.69 mg/dL Normal 0.30-1.20 [facility] Comment on above: Performed By: #### C MP #### [facility] [address] [place], [place] [id number] BUN/CREA 26 Ratio High 6-22 [facility] Comment on above: Performed By: #### C MP #### [facility] [address] [place], [place] [id number] Calcium [Mass/Vol] 10.1 mg/dL Normal 8.6-10.2 [facility] Comment on above: Performed By: #### C MP #### [facility] [address] [place], [place] [id number] Chloride [Moles/Vol] 100 mmol/L Normal 98-107 [facility] Comment on above: Performed By: #### C MP #### [facility] [address] [place], [place] [id number] CO2 [Moles/Vol] 22 mmol/L Normal 20-31 [facility] Comment on above: Performed By: #### C MP #### [facility] [address] [place], [place] [id number] Creatinine [Mass/Vol] 0.9 mg/dL Normal 0.7-1.4 [facility] Comment on above: Performed By: #### C MP #### [facility] [address] [place], [place] [id number] eGFRAA 96 mL/min/1.73m2 Normal >60 [facility] Comment on above: Performed By: #### C MP #### [facility] [address] [place], [place] [id number] eGFRNAA 79 mL/min/1.73m2 Normal >60 [facility] Comment on above: Performed By: #### C MP #### [facility] [address] [place], [place] [id number] Globulin (S) [Mass/Vol] 1.8 g/dL Low 1.9-3.7 [facility] Comment on above: Performed By: #### C MP #### [facility] [address] [place], [place] [id number] Glucose [Mass/Vol] 88 mg/dL Normal 65-99 [facility] Specialist Comment on above: Result Comment: For FASTING Glucose --- ADA reference ranges: Normal 65-99 mg/dl Prediabetes 100-125 Diabetes >/= 126 Performed By: #### C MP #### [facility] [address] [place], [place] [id number] Potassium [Moles/Vol] 4.4 mmol/L Normal 3.5-5.5 [facility] Comment on above: Performed By: #### C MP #### [facility] [address] [place], [place] [id number] Protein [Mass/Vol] 6.4 g/dL Normal 6.1-8.1 [facility] Specialist Comment on above: Performed By: #### C MP #### [facility] [address] [place], [place] [id number] Sodium [Moles/Vol] 137 mmol/L Normal 135-146 [facility] Specialist Comment on above: Performed By: #### C MP #### [facility] [address] [place], [place] [id number] Urea nitrogen [Mass/Vol] 24 mg/dL Normal 7-25 [facility] Specialist Comment on above: Performed By: #### C MP #### [facility] [address] [place], [place] [id number] Hemoglobin A1Con 09-26-2021 EAG 105.41 Normal [facility] Specialist Comment on above: Performed By: #### A 1C #### [facility] [address] [place], [place] [id number] HbA1c (Bld) [Mass fraction] 5.3 % Normal 4.0-6.0 [facility] Specialist Comment on above: Performed By: #### A 1C #### [facility] [address] [place], [place] [id number] Microalbumin (with Creat)on 09-26-2021 mALB <1.2 Low [facility] Specialist Comment on above: Result Comment: Unab le to calculate mALB/Crea ratio, mALB is <1.2 mg/dL mALB reference range not established. Performed By: #### m ALBC #### [facility] [address] [place], [place] [id number] UCREA 148 mg/dL Normal 39-259 [facility] Produce Wrapper Comment on above: Performed By: #### m ALBC #### [facility] [address] [place], [place] [id number] Q - URINALYSIS,COMPLETEon Appearance (U) CLEAR Normal CLEAR [facility] Comment on above: Order Comment: [facility] performed at: e[facility]I, [facility], [address], [address] [place] [address], [address] [place] [address], Welt Drawer: Ottoniel Best MD [facility] Collection Date/Time: [facility] Results Received Date/Time: [facility] Reported Date/Time: Performed By: #### 3 4F #### [facility] Default [address] [place] [address] BACTERIA NONE SEEN Normal NONE SEEN [facility] Comment on above: Order Comment: [facility] performed at: [facility], [facility], [address], [address] [place] [address], [address] [place] [address], Welt Drawer: Ottoniel Best MD [facility] Collection Date/Time: [facility] Results Received Date/Time: [facility] Reported Date/Time: Performed By: #### 3 4F #### [facility] Default [address] [place] [address] Bilirubin Ql (U) Negative Normal NEGATIVE [facility] Comment on above: Order Comment: [facility] performed at: [facility], [facility], [address], [address] [place] [address], [address] [place] [address], Welt Drawer: Ottoniel Best MD [facility] Collection Date/Time: [facility] Results Received Date/Time: [facility] Reported Date/Time: Performed By: #### 3 4F #### [facility] [address] [place] [address] Color (U) YELLOW Normal YELLOW [facility] Comment on above: Order Comment: [facility] performed at: [facility], [facility], [address] [place] [address], [address] [place] [address], [address] [place] [address], Welt Drawer: Ottoniel Best MD [facility] Collection Date/Time: [facility] Results Received Date/Time: [facility] Reported Date/Time: Performed By: #### 3 4F #### [facility] [address] [place] [address] Glucose Ql (U) Negative Normal NEGATIVE [facility] Comment on above: Order Comment: [facility] performed at: [facility], [facility], [address] [place] [address], [address] [place] [address], [address] [place] [address], Welt Drawer: Ottoniel Best MD [facility] Collection Date/Time: [facility] Results Received Date/Time: [facility] Reported Date/Time: Performed By: #### 3 4F #### [facility] [address] [place] [address] HYALINE CAST NONE SEEN Normal NONE SEEN [facility] Wrapper Comment on above: Order Comment: [facility] performed at: [facility], [facility], [address] [place] [address], [address] [place] [address], Welt Drawer: Ottoniel Best MD [facility] Date/Time: [facility] Results Received Date/Time: [facility] Reported Date/Time: Performed By: #### 3 4F #### [facility] [address] [place] [address] Ketones Ql (U) Negative Normal NEGATIVE [facility] Comment on above: Order Comment: [facility] performed at: [facility], [facility], [address] , [address] [place] [address], [address] [place] [address], Welt Drawer: Ottoniel Best MD [facility] Collection Date/Time: [facility] Results Received Date/Time: [facility] Reported Date/Time: Performed By: #### 3 4F #### [facility] Default [address] [place] [address] Leukocyte esterase Test strip Ql (U) Negative Normal NEGATIVE [facility] Specialist Comment on above: Order Comment: [facility] performed at: Q, [facility], [address] , [address] [place] [address], [address] [place] [address], Welt Drawer: Ottoniel Best MD [facility] Collection Date/Time: [facility] Results Received Date/Time: [facility] Reported Date/Time: Performed By: #### 3 4F #### [facility] Default [address] [place] [address] Nitrite Ql (U) Negative Normal NEGATIVE [facility] Specialist Comment on above: Order Comment: [facility] performed at: [facility], [facility], [address] [facility], [address] [place] [address], [address] [place] [address], Welt Drawer: Ottoniel Best MD [facility] Collection Date/Time: [facility] Results Received Date/Time: [facility] Reported Date/Time: Performed By: #### 3 4F #### [facility] Default [address] [place] [address] OCCULT BLOOD Negative Normal NEGATIVE [facility] Produ[employer] Wrapper Comment on above: Order Comment: [facility] performed at: [facility], [facility], [address] , [address] [place] [address], [address] [place] [address], Welt Drawer: Ottoniel Best MD [facility] Date/Time: [facility] Results Received Date/Time: [facility] Reported Date/Time: Performed By: #### 3 4F #### [facility] Default [address] [place] [address] pH (U) 5.5 [pH] Normal 5.0-8.0 [facility] Produce Wrapper Comment on above: Order Comment: [facility] performed at: [facility], [facility], [address] , [address] [place] [address], [address] [place] [address], Welt Drawer: Ottoniel Best MD [facility] Collection Date/Time: [facility] Results Received Date/Time: [facility] Reported Date/Time: Performed By: #### 3 4F #### [facility] Default [address] [place] [address] Protein Ql (U) Negative Normal NEGATIVE [facility] Comment on above: Order Comment: [facility] performed at: [facility], [facility], [address] [facility], [address] [place] [address], [address] [place] [address], Welt Drawer: Ottoniel Best MD [facility] Date/Time: [facility] Results Received Date/Time: [facility] Reported Date/Time: Performed By: #### 3 4F #### [facility] Default [address] [place] [address] RBC NONE SEEN Normal < OR = 2 [facility] Specialist Comment on above: Order Comment: [facility] performed at: [facility], [facility], [address] , [address] [place] [address], [address] [place] [address], Welt Drawer: Ottoniel Best MD [facility] Collection Date/Time: [facility] Results Received Date/Time: [facility] Reported Date/Time: Performed By: #### 3 4F #### [facility] Default [address] [place] [address] Specific gravity (U) [Rel density] 1.022 Normal 1.001-1.035 [facility] Specialist Comment on above: Order Comment: [facility] performed at: [facility], [facility], [address] [facility], [address] [place] [address], [address] [place] [address], Welt Drawer: Ottoniel Best MD [facility] Date/Time: [facility] Results Received Date/Time: [facility] Reported Date/Time: Performed By: #### 3 4F #### [facility] Default [address] [place] [address] SQUAMOUS EPITHELIAL CELLS NONE SEEN Normal < OR = 5 [facility] Produce Wrapper Comment on above: Order Comment: [facility] performed at: [facility], [facility], [address] , [address] [place] [address], [id number], Welt Drawer: Ottoniel Best MD [facility] Collection Date/Time: [facility] Results Received Date/Time: [facility] Reported Date/Time: Performed By: #### 3 4F #### [facility] Default [address] [place] [address] WBC NONE SEEN Normal < OR = 5 [facility] Specialist Comment on above: Order Comment: [facility] Testing performed at: [facility], [facility], [address] , [address] [place] [address], [phone], [place] Drawer: Ottoniel Best MD [facility] Collection Date/Time: [facility] Results Received Date/Time: [facility] Reported Date/Time: Performed By: #### 3 4F #### [facility] [address] [place] [address] Bacteria Ur Culton 2 Bacteria identified Cx Nom (U) CULTURE, URINE: No growth (<1,000 CFU/ml) Normal [facility] Comment on above: Performed By: #### 6 30-4 ####[facility] LABCLIA [id number] [place] [address] [place] Basic metabolic 2000 panelon 09-10-2021 Anion gap [Moles/Vol] 10 mmol/L Normal 9-18 [facility] Comment on above: Order Comment: Speci men Type: BLOOD SPECIMENOrdering Facility: [facility] Address: [address] [place] [address] Performed By: #### 2 4321-2 ####[facility] LABCLIA [id number] [address] [address] [place] Calcium [Mass/Vol] 10.0 mg/dL Normal 8.5-10.[address] [facility] Comment on above: Order Comment: Speci men Type: BLOOD SPECIMENOrdering Facility: [facility] Address: [address] Performed By: #### 2 4321-2 ####[facility] LABCLIA [id number] [place] [address] [place] Chloride [Moles/Vol] 101 mmol/L Normal 97-105 [facility] Comment on above: Order Comment: Speci men Type: BLOOD SPECIMENOrdering Facility: [facility] Address: [address] [place], [place] [address] Performed By: #### 2 4321-2 ####[facility] LABCLIA [id number] [place] [address] [place] CO2 [Moles/Vol] 27 mmol/L Normal 22-30 [facility] Comment on above: Order Comment: Speci men Type: BLOOD SPECIMENOrdering Facility: [facility] Address: [address] [place], [place] [address] Performed By: #### 2 4321-2 ####[facility] LABCLIA [id number] [place] [address] [place] Creatinine [Mass/Vol] 1.12 mg/dL Normal 0.73-1.22 [facility] Comment on above: Order Comment: Speci men Type: BLOOD SPECIMENOrdering Facility: [facility] Address: [address] [place], [place] [address] Performed By: #### 2 4321-2 ####[facility] LABCLIA [id number] [place] [address] [place] ESTIMATED GLOMERULAR FILTRATION RATE 70 mL/min/1.73m??? Normal >=60 [facility] Comment on above: Order Comment: Speci men Type: BLOOD SPECIMENOrdering Facility: [facility] Address: [address] [place] [address] Result Comment: Pam mated Glomerular Filtration Rate [...] actual GFR. Performed By: #### 2 4321-2 ####[facility] LABIA [id number] [place] [address] [place] Glucose [Mass/Vol] 96 mg/dL Normal 74-[address] [facility] Comment on above: Order Comment: Jose David mina Type: BLOOD SPECIMENOrdering Facility: [facility] Address: [address] [phone] Result Comment: The [place] Diabetes Association (ADA) provides guidance for cutoff [...] Standards of Medical Care in Diabetes 2016, [place] Diabetes Association. Diabetes Care. 2016.39(Suppl 1). Performed By: #### 2 4321-2 ####[facility] LABIA [id number] [place] [address] [place] Potassium [Moles/Vol] 4.6 mmol/L Normal 3.7-5.1 [facility] Comment on above: Order Comment: Jose David mina Type: BLOOD SPECIMENOrdering Facility: [facility] Address: [address] [phone] Performed By: #### 2 4321-2 ####[facility] LABIA [id number] [address] [id number] [address] [place] Sodium [Moles/Vol] 138 mmol/L Normal 136-[address] [facility] Comment on above: Order Comment: Speci men Type: BLOOD SPECIMENOrdering Facility: [facility] Address: [address] [place], [place] [address] Performed By: #### 2 4321-2 ####[facility]CLIA [id number] [place] [address] [place] Urea nitrogen [Mass/Vol] 19 mg/dL Normal 9-24 [facility] Comment on above: Order Comment: Speci men Type: BLOOD SPECIMENOrdering Facility: [facility] Address: [address] [place] [address] Performed By: #### 2 4321-2 ####[facility] LABCLIA [id number] [place] [address] [place] CBC W Auto Differential pane l (Bld)on 09-10-2021 Basophils (Bld) [#/Vol] 0.04 10*3/uL Normal <0.11 [facility] Comment on above: Order Comment: Speci men Type: BLOOD SPECIMENOrdering Facility: [facility] Address: [address] [place], [place] [address] Performed By: #### 5 7021-8 ####[facility] LABCLIA [id number] [place] [address] [place] Basophils/100 WBC (Bld) 0.6 % Normal [facility] Comment on above: Order Comment: Speci men Type: BLOOD SPECIMENOrdering Facility: [facility] Address: [address] [place], [place] [address] Performed By: #### 5 7021-8 ####[facility]CLIA [id number] [place] [address] [place] Differential cell count method Nom (Bld) Auto Normal [facility] Comment on above: Order Comment: Speci men Type: BLOOD SPECIMENOrdering Facility: [facility] Address: [address] [place], [place] [address] Performed By: #### 5 7021-8 ####[facility]CLIA [id number] [address] [place] Eosinophils (Bld) [#/Vol] 0.27 10*3/uL Normal <0.46 [facility] Comment on above: Order Comment: Speci men Type: BLOOD SPECIMENOrdering Facility: [facility] Address: [address] [place], [place] [address] Performed By: #### 5 7021-8 ####[facility] LABCLIA [id number] [address] [place] Eosinophils/100 WBC (Bld) 3.8 % Normal [facility] Comment on above: Order Comment: Speci men Type: BLOOD SPECIMENOrdering Facility: [facility] Address: [address] [place], [place] [address] Performed By: #### 5 7021-8 ####[facility] LABCLIA [id number] [address] [place] Erythrocyte distribution width (RBC) [Ratio] 12.8 % Normal 11.5-15.0 [facility] Comment on above: Order Comment: Speci men Type: BLOOD SPECIMENOrdering Facility: [facility] Address: [address] [place], [place] [address] Performed By: #### 5 7021-8 ####[facility] LABCLIA [id number] [place] [address] [place] Hematocrit (Bld) [Volume fraction] 43.5 % Normal 39.0-51.0 [facility] Comment on above: Order Comment: Speci men Type: BLOOD SPECIMENOrdering Facility: [facility] Address: [address] [place], [place] [address] Performed By: #### 5 7021-8 ####[facility] LABCLIA [id number] [place] [address] [place] Hemoglobin (Bld) [Mass/Vol] 14.4 g/dL Normal 13.0-17.0 [facility] Comment on above: Order Comment: Speci men Type: BLOOD SPECIMENOrdering Facility: [facility] Address: [address] [place] [address] Performed By: #### 5 7021-8 ####[facility] LABCLIA [id number] [place] [address] [place] IMMATURE GRAN % 0.7 % Normal [facility] Comment on above: Order Comment: Speci men Type: BLOOD SPECIMENOrdering Facility: [facility] Address: [address] [place] [address] Performed By: #### 5 7021-8 ####[facility] LABIA [id number] [place] [address] [place] IMMATURE GRAN ABS 0.05 k/uL Normal <0.10 [facility] Comment on above: Order Comment: Speci men Type: BLOOD SPECIMENOrdering Facility: [facility] Address: [address] [place] [address] Performed By: #### 5 7021-8 ####[facility] LABIA [id number] [place] [address] [place] Lymphocytes (Bld) [#/Vol] 1.20 10*3/uL Normal 1.00-4.00 [facility] Comment on above: Order Comment: Speci men Type: BLOOD SPECIMENOrdering Facility: [facility] Address: [address] [place] [address] Performed By: #### 5 7021-8 ####[facility] LABIA [id number] [address] [place] Lymphocytes/100 WBC (Bld) 16.7 % Normal [facility] Comment on above: Order Comment: Speci men Type: BLOOD SPECIMENOrdering Facility: [facility] Address: [address] [place], [place] [address] Performed By: #### 5 7021-8 ####[facility] [id number] [address] MCH (RBC) [Entitic mass] 32.4 pg Normal 26.0-34.0 [facility] Comment on above: Order Comment: Speci men Type: BLOOD SPECIMENOrdering Facility: [facility] Address: [address] [place], [place] [address] Performed By: #### 5 7021-8 ####[facility] [id number] [address] STATES [facility] MCHC (RBC) [Mass/Vol] 33.1 g/dL Normal 30.5-36.0 [facility] Comment on above: Order Comment: Speci men Type: BLOOD SPECIMENOrdering Facility: [facility] Address: [address] [place], [place] [address] Performed By: #### 5 7021-8 ####[facility] [id number] [address] MCV (RBC) [Entitic vol] 98.0 fL Normal 80.0-100.[address] [facility] Comment on above: Order Comment: Speci men Type: BLOOD SPECIMENOrdering Facility: [facility] Address: [address] [place], [place] [address] Performed By: #### 5 7021-8 ####[facility] [id number] [place] [address] [place] Monocytes (Bld) [#/Vol] 0.85 10*3/uL Normal <0.87 [facility] Comment on above: Order Comment: Speci men Type: BLOOD SPECIMENOrdering Facility: [facility] Address: [address] [place], [place] [address] Performed By: #### 5 7021-8 ####[facility] LABCLIA [id number] [place] [address] [place] Monocytes/100 WBC (Bld) 11.9 % Normal [facility] Comment on above: Order Comment: Speci men Type: BLOOD SPECIMENOrdering Facility: [facility] Address: [address] [place], [place] [address] Performed By: #### 5 7021-8 ####[facility] LABCLIA [id number] [place] [address] [place] Neutrophils (Bld) [#/Vol] 4.76 10*3/uL Normal 1.45-7.50 [facility] Comment on above: Order Comment: Speci men Type: BLOOD SPECIMENOrdering Facility: [facility] Address: [address] [place], [place] [address] Performed By: #### 5 7021-8 ####[facility] LABCLIA [id number] [place] [address] [place] Neutrophils/100 WBC (Bld) 66.3 % Normal [facility] Comment on above: Order Comment: Speci men Type: BLOOD SPECIMENOrdering Facility: [facility] Address: [address] [place], [place] [address] Performed By: #### 5 7021-8 ####[facility] LABCLIA [id number] [place] [address] [place] Nucleated RBC (Bld) [#/Vol] 10*3/uL Normal <0.01 [facility] Comment on above: Order Comment: Speci men Type: BLOOD SPECIMENOrdering Facility: [facility] Address: [address] [place], [place] [address] Performed By: #### 5 7021-8 ####[facility] LABCLIA [id number] [place] [address] [place] Nucleated RBC/100 WBC (Bld) [Ratio] 0.0 /100 WBC Normal [facility] Comment on above: Order Comment: Speci men Type: BLOOD SPECIMENOrdering Facility: [facility] Address: [address] [place], [place] [address] Performed By: #### 5 7021-8 ####[facility] LABCLIA [id number] [place] [address] [place] Platelet mean volume (Bld) [Entitic vol] 11.2 fL Normal 9.0-12.7 [facility] Comment on above: Order Comment: Speci men Type: BLOOD SPECIMENOrdering Facility: [facility] Address: [address] [place], [place] [address] Performed By: #### 5 7021-8 ####[facility] LABCLIA [id number] [place] [address] [place] Platelets (Bld) [#/Vol] 265 10*3/uL Normal 150-400 [facility] Comment on above: Order Comment: Speci men Type: BLOOD SPECIMENOrdering Facility: [facility] Address: [address] [place], [place] [address] Performed By: #### 5 7021-8 ####[facility] LABCLIA [id number] [place] [address] [place] RBC (Bld) [#/Vol] 4.44 10*6/uL Normal 4.20-6.00 [facility] Comment on above: Order Comment: Speci men Type: BLOOD SPECIMENOrdering Facility: [facility] Address: [address] [place] [address] Performed By: #### 5 7021-8 ####[facility] LABCLIA [id number] [place] [address] [place] WBC (Bld) [#/Vol] 7.17 10*3/uL Normal 3.70-11.00 [facility] Comment on above: Order Comment: Speci men Type: BLOOD SPECIMENOrdering Facility: [facility] Address: [address] [place] [address] Performed By: #### 5 7021-8 ####[facility] LABCLIA [id number] [id number] [id number] [facility] CNOVon 09-10-2021 CNOV Office Visit (LOORRM ) MEERA MCKOY ([id number]) 1950 M Date Time Provider Department 09/10/21 9:30 AM [facility] During your visit today, we recorded the following information about you: Weight Height 110.7 kg 1.803 m Lorna Ngo PA-C 09/10/2021 12:03 PM Signed CONSULT ORTHOPAEDIC: HIP PRIMARY CARE PHYSICIAN: Mona Reese DO, DO REFERRING PROVIDER: Gordo Nova [address] [address] ASSESSMENT AND PLAN: Impression: Right Hip Severe [...] which include walking 2 blocks, gardening, 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 Normal [facility] HGB A1Con 09-10-2021 Average glucose Estimated from glycated hemoglobin (Bld) [Mass/Vol] 100 mg/dL Normal [facility] Comment on above: Order Comment: Speci men Type: BLOOD SPECIMENOrdering Facility: [facility] Address: [address] [place] [address] Result Comment: eAG: (Estimated average glucose) is a calculated value from HgbA1c and is field marketing representative of the average blood glucose level in the last 2-3 month period. Performed By: #### H BA1C ####[facility] LABCLIA [id number] [place] [address] [place] HbA1c (Bld) [Mass fraction] 5.1 % Normal 4.3-5.6 [facility] Comment on above: Order Comment: Speci men Type: BLOOD SPECIMENOrdering Facility: [facility] Address: [address] [address] Result Comment: [place] Diabetes Association guidelines indicate that patients with HgbA1c in the range 5.7-6.4% are at increased risk for development of diabetes, and intervention by lifestyle modification may be beneficial. HgbA1c greater or equal to 6.5% is considered diagnostic of diabetes. Performed By: #### H BA1C ####[facility] LABCLIA [id number] [place] [address] [place] HISTORY PHYSICALon HISTORY PHYSICAL HNO ID: [id number] Author: Maira Doss APRN.DOC Service: ? Author Type: Nurse Practitioner Type: [...] fevers. Neuro: No history of TIA's, stroke, BILLING [employer]LE[employer] SPECIALIST tumor, impaired sensorium, hemiplegia, paraplegia or quadraplegia. No neurological symptoms or problems. Respiratory: No history of current cough or dyspnea, or pneumonia in the past 6 weeks. No history of respiratory/pulmonary symptoms or problems. + KATTY wears CPAP Cardiovascular: Negative for Recent DC, Arrhythmia, Susana (more content not included)... Normal [facility] TYPE AND SCREEN,30 DAYon ABO O Normal [facility] Comment on above: Order Comment: Speci men Type: BLOOD SPECIMENOrdering Facility: [facility] Address: [address] [place] [address] Performed By: #### T SCR30 ####[facility] [id number] [address] [place] HISTORICAL AB SCR STATUS Negative Normal [facility] Comment on above: Order Comment: Speci men Type: BLOOD SPECIMENOrdering Facility: [facility] Address: [address] [place] [address] Performed By: #### T SCR30 ####[facility] BANKCLIA [id number] [place] [address] [place] Rh Nom (Bld) Positive Normal [facility] Comment on above: Order Comment: Speci men Type: BLOOD SPECIMENOrdering Facility: [facility] Address: [address] [place] [address] Performed By: #### T SCR30 ####[facility] BANKCLIA [id number] [place] [address] [place] Urinalysis complete panel (U )on 09-10-2021 Bilirubin Ql (U) Negative Normal Negative [facility] Comment on above: Order Comment: Speci men Type: URINE SPECIMENOrdering Facility: [facility] Address: [address] [place] [address] Performed By: #### 2 4356-8 ####[facility] LABCLIA [id number] [place] [address] [place] Clarity (Unsp spec) Clear Normal Clear [facility] Comment on above: Order Comment: Speci men Type: URINE SPECIMENOrdering Facility: [facility] Address: [address] [place], [place] [address] Performed By: #### 2 4356-8 ####[facility] LABCLIA [id number] [place] [address] [place] Color (U) Straw Normal Yellow [facility] Comment on above: Order Comment: Speci men Type: URINE SPECIMENOrdering Facility: [facility] Address: [address] [place], [place] [address] Performed By: #### 2 4356-8 ####[facility] LABCLIA [id number] [place] [address] [place] Glucose Test strip (U) [Mass/Vol] Negative Normal Negative [facility] Comment on above: Order Comment: Speci men Type: URINE SPECIMENOrdering Facility: [facility] Address: [address] [place], [place] [address] Performed By: #### 2 4356-8 ####[facility] LABCLIA [id number] [place] [address] [place] Hemoglobin Ql (U) Negative Normal Negative [facility] Comment on above: Order Comment: Speci men Type: URINE SPECIMENOrdering Facility: [facility] Address: [facility] [place] [address] Performed By: #### 2 4356-8 ####[facility] LABCLIA [id number] [place] [address] [place] Ketones Ql (U) Negative Normal Negative [facility] Comment on above: Order Comment: Speci men Type: URINE SPECIMENOrdering Facility: [facility] Address: [address] [place], [place] [address] Performed By: #### 2 4356-8 ####[facility] LABCLIA [id number] [place] [address] [place] Leukocyte esterase Test strip Ql (U) Negative Normal Negative [facility] Comment on above: Order Comment: Speci men Type: URINE SPECIMENOrdering Facility: [facility] Address: [address] [place], [place] [address] Performed By: #### 2 4356-8 ####[facility] LABIA [id number] [place] [address] [place] Nitrite Ql (U) Negative Normal Negative [facility] Comment on above: Order Comment: Speci men Type: URINE SPECIMENOrdering Facility: [facility] Address: [address] [place], [place] [address] Performed By: #### 2 4356-8 ####[facility] LABIA [id number] [place] [address] [place] pH (U) 7.0 [pH] Normal 5.0-8.0 [facility] Comment on above: Order Comment: Speci men Type: URINE SPECIMENOrdering Facility: [facility] Address: [address] [place], [place] [address] Performed By: #### 2 4356-8 ####[facility] LABCLIA [id number] [place] [address] [place] Protein (U) [Mass/Vol] Negative Normal Negative [facility] Comment on above: Order Comment: Speci men Type: URINE SPECIMENOrdering Facility: [facility] Address: [address] [place], [place] [address] Performed By: #### 2 4356-8 ####[facility] LABCLIA [id number] [address] RBC LM.HPF (Urine sed) [#/Area] 0-3 /HPF Normal 0-3 /HPF [facility] Comment on above: Order Comment: Speci men Type: URINE SPECIMENOrdering Facility: [facility] Address: [address] [place] [address] Performed By: #### 2 4356-8 ####[facility] LABIA [id number] [address] Specific gravity (U) [Rel density] 1.008 Normal 1.005-1.030 [facility] Comment on above: Order Comment: Speci men Type: URINE SPECIMENOrdering Facility: [facility] Address: [address] [place] [address] Performed By: #### 2 4356-8 ####[facility] [id number] [address] Urobilinogen Ql (U) Negative Normal Negative [facility] Comment on above: Order Comment: Speci men Type: URINE SPECIMENOrdering Facility: [facility] Address: [address] [place] [address] Performed By: #### 2 4356-8 ####[facility] [id number] [address] WBC LM.HPF (Urine sed) [#/Area] 0-5 /HPF Normal 0-5 /HPF [facility] Comment on above: Order Comment: Speci men Type: URINE SPECIMENOrdering Facility: [facility] Address: [address] [place] [address] Performed By: #### 2 4356-8 ####[facility] LABIA [id number] [address] [place] Kelly 08-01-2021 CNPN Telephone (4CQ) MEERA MCKOY ([id number]) 1950 M Date Time Provider Department 08/01/21 GORDO NOVA 4CQ During your visit today, we recorded the following information about you: Cici Seay 08/01/2021 11:54 AM Signed Meera Hawthornerobert called today. : 1950 Allergies: Seasonal Allergies (home) [phone] (cell) Reason for call: patient calling to inform he will be going out of town next Wednesday, 08/05 until 08/25/21 and would like to speak to provider about surgery and would like to speak to medical surgical tech prior to leaving. Please call patient LAKEISHA at [phone]. 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] 02/11/2010 Osteoarth NOS-l/leg [[id number]] 04/07/2010 Malignant neoplasm of prostate [C61] 04/29/2010 Urge incontinence [N39.41] 10/23/2010 Urge incontinence of urine [N39.41] 10/23/2010 BPH (benign prostatic hyperplasia) [N40.0] 06/25/2011 History of prostate cancer [Z85.46] 12/25/2011 Kidney stone [N20.0] 05/26/2016 Encounter Status:Closed by GORDO NOVA II on 08/01/21 Normal [facility] Complete Blood Count with Au to Diffon 06-26-2021 Basophils (Bld) [#/Vol] 0.02 10*3/uL Normal 0.00-0.20 [facility] Produce Wrapper Comment on above: Performed By: #### V ITD, CBCAD, CMP #### [facility] [address], [place] [id number] Basophils/100 WBC (Bld) 0.2 % [facility] [place] [facility] Comment on above: Performed By: #### V ITD, CBCAD, CMP #### [facility] [address], [place] [id number] Eosinophils (Bld) [#/Vol] 0.14 10*3/uL Normal 0.02-0.50 [facility] Produce Wrapper Comment on above: Performed By: #### V ITD, CBCAD, CMP #### [facility] [address], [place] [id number] Eosinophils/100 WBC (Bld) 1.5 % Normal [place] [employer] Comment on above: Performed By: #### V ITD, CBCAD, CMP #### [facility] [address], [place] [id number] Erythrocyte distribution width (RBC) [Ratio] 12.4 % Normal 11.0-15.0 [facility] Specialist Comment on above: Performed By: #### V ITD, CBCAD, CMP #### [facility] [address], [place] [id number] Hematocrit (Bld) [Volume fraction] 42.1 % Normal 38.5-50.0 [facility] Specialist Comment on above: Performed By: #### V ITD, CBCAD, CMP #### [facility] [address], [place] [id number] Hemoglobin (Bld) [Mass/Vol] 14.8 g/dL Normal 13.0-17.1 [facility] Specialist Comment on above: Performed By: #### V ITD, CBCAD, CMP #### [facility] [address], [place] [id number] Lymphocytes (Bld) [#/Vol] 1.0 10*3/uL Normal 0.9-3.9 [facility] Specialist Comment on above: Performed By: #### V ITD, CBCAD, CMP #### [facility] [address], [place] [id number] Lymphocytes/100 WBC (Bld) 10.2 % Normal [facility] Specialist Comment on above: Performed By: #### V ITD, CBCAD, CMP #### [facility] [address], [place] [id number] MCH (RBC) [Entitic mass] 33.1 pg High 27.0-33.0 [facility] Specialist Comment on above: Performed By: #### V ITD, CBCAD, CMP #### [facility] [address], [place] [id number] MCHC (RBC) [Mass/Vol] 35.2 g/dL Normal 32.0-36.0 [facility] Comment on above: Performed By: #### V ITD, CBCAD, CMP #### [facility] [address], [place] [id number] MCV (RBC) [Entitic vol] 94 fL Normal 80-100 [facility] Comment on above: Performed By: #### V ITD, CBCAD, CMP #### [facility] [address], [place] [id number] Monocytes (Bld) [#/Vol] 1.3 10*3/uL High 0.2-0.9 [facility] Specialist Comment on above: Performed By: #### V ITD, CBCAD, CMP #### [facility] [address], [place] [id number] Monocytes/100 WBC (Bld) 13.5 % Normal [facility] Comment on above: Performed By: #### V ITD, CBCAD, CMP #### [facility] [address], [place] [id number] Neutrophils (Bld) [#/Vol] 7.0 10*3/uL Normal 1.5-7.8 [facility] Specialist Comment on above: Performed By: #### V ITD, CBCAD, CMP #### [facility] [address], [place] [id number] Neutrophils/100 WBC (Bld) 74.0 % Normal [facility] Specialist Comment on above: Performed By: #### V ITD, CBCAD, CMP #### [facility] [address], [place] [id number] Platelet mean volume (Bld) [Entitic vol] 10.70 fL Normal 7.50-12.50 [facility] Specialist Comment on above: Performed By: #### V ITD, CBCAD, CMP #### [facility] [address], [place] [id number] Platelets (Bld) [#/Vol] 291 10*3/uL Normal 140-400 [facility] Specialist Comment on above: Performed By: #### V ITD, CBCAD, CMP #### [facility] [address], [place] [id number] RBC (Bld) [#/Vol] 4.47 10*6/uL Normal 4.20-5.80 [facility] Specialist Comment on above: Performed By: #### V ITD, CBCAD, CMP #### [facility] [address], [place] [id number] RDW-SD 43.1 fL Normal 37.0-50.0 [facility] Produce Wrapper Comment on above: Performed By: #### V ITD, CBCAD, CMP #### [facility] [address], [place] [id number] WBC (Bld) [#/Vol] 9.4 10*3/uL Normal 3.8-11.0 [facility] [place] [employer] Comment on above: Performed By: #### V ITD, CBCAD, CMP #### [facility] [address], [place] [id number] Comprehensive Metabolic Pane rufino 06-26-2021 Albumin [Mass/Vol] 4.7 g/dL Normal 3.6-5.1 [facility] [place] [employer] Comment on above: Performed By: #### V ITD, CBCAD, CMP #### [facility] [address], [place] [id number] Albumin/Globulin [Mass ratio] 2.5 {ratio} Normal 1.0-2.5 [facility] Produce Wrapper Comment on above: Performed By: #### V ITD, CBCAD, CMP #### [facility] [address], [place] [id number] ALP [Catalytic activity/Vol] 77 U/L Normal 40-129 [facility] Produce Wrapper Comment on above: Performed By: #### V ITD, CBCAD, CMP #### [facility] [address], [place] [id number] ALT [Catalytic activity/Vol] 35 U/L Normal 9-46 [facility] Produce Wrapper Comment on above: Result Comment: 05/14 Female reference range changed. Performed By: #### V ITD, CBCAD, CMP #### [facility] [address], [place] [id number] Anion gap [Moles/Vol] 18 mmol/L Normal 12-20 [facility] [place] [facility] Comment on above: Result Comment: Effe ctive 06/19/2019 reference range changed. Performed By: #### V ITD, CBCAD, CMP #### [facility] [address], [place] [id number] AST [Catalytic activity/Vol] 31 U/L Normal 10-40 [facility] Comment on above: Performed By: #### V ITD, CBCAD, CMP #### [facility] [address], [place] [id number] Bilirubin [Mass/Vol] 0.60 mg/dL Normal 0.30-1.20 [facility] Comment on above: Performed By: #### V ITD, CBCAD, CMP #### [facility] [address], [place] [id number] BUN/CREA 21 Ratio Normal 6-22 [facility] Comment on above: Performed By: #### V ITD, CBCAD, CMP #### [facility] [address], [place] [id number] Calcium [Mass/Vol] 9.7 mg/dL Normal 8.6-10.2 [facility] Comment on above: Performed By: #### V ITD, CBCAD, CMP #### [facility] [address], [place] [id number] Chloride [Moles/Vol] 102 mmol/L Normal 98-107 [facility] Comment on above: Performed By: #### V ITD, CBCAD, CMP #### [facility] [address], [place] [id number] CO2 [Moles/Vol] 21 mmol/L Normal 20-31 [facility] Comment on above: Performed By: #### V ITD, CBCAD, CMP #### [facility] [address], [place] [id number] Creatinine [Mass/Vol] 0.9 mg/dL Normal 0.7-1.4 [facility] Comment on above: Performed By: #### V ITD, CBCAD, CMP #### [facility] [address] [facility] [place] [place] [id number] eGFRAA 100 mL/min/1.73m2 Normal >60 [facility] Comment on above: Performed By: #### V ITD, CBCAD, CMP #### [facility] [address] [facility] [place] [id number] eGFRNAA 82 mL/min/1.73m2 Normal >60 [facility] Comment on above: Performed By: #### V ITD, CBCAD, CMP #### [facility] [address], [place] [id number] Globulin (S) [Mass/Vol] 1.9 g/dL Normal 1.9-3.7 [facility] Specialist Comment on above: Performed By: #### V ITD, CBCAD, CMP #### [facility] [address], [place] [id number] Glucose [Mass/Vol] 104 mg/dL High 65-99 [facility] [place] [employer] Comment on above: Result Comment: For FASTING Glucose --- ADA reference ranges: Normal 65-99 mg/dl Prediabetes 100-125 Diabetes >/= 126 Performed By: #### V ITD, CBCAD, CMP #### [facility] [address], [place] [id number] Potassium [Moles/Vol] 4.5 mmol/L Normal 3.5-5.5 [facility] Produce Wrapper Comment on above: Performed By: #### V ITD, CBCAD, CMP #### [facility] [address], [place] [id number] Protein [Mass/Vol] 6.6 g/dL Normal 6.1-8.1 [facility] Produce Wrapper Comment on above: Performed By: #### V ITD, CBCAD, CMP #### [facility] [address], [place] [id number] Sodium [Moles/Vol] 136 mmol/L Normal 135-146 [facility] Produce Wrapper Comment on above: Performed By: #### V ITD, CBCAD, CMP #### [facility] [address], [place] [id number] Urea nitrogen [Mass/Vol] 20 mg/dL Normal 7-25 [facility] Produce Wrapper Comment on above: Performed By: #### V ITD, CBCAD, CMP #### [facility] [address], [place] [id number] Hemoglobin A1Con 06-26-2021 EAG 111.15 Normal [facility] Produ[employer] Wrapper Comment on above: Performed By: #### A 1C #### [facility] [address], [place] [id number] HbA1c (Bld) [Mass fraction] 5.5 % Normal 4.0-6.0 [facility] Produce Wrapper Comment on above: Performed By: #### A 1C #### [facility] [address], [place] [id number] Q - INSULIN,SERUMon 06-26-19 22 INSULIN 11.0 uIU/mL Normal [facility] Produce Wrapper Comment on above: Order Comment: [facility] performed at: Q, [facility], [address], [address] [place], [address], [place] Drawer: Ottoniel Best MD [facility] Collection Date/Time: [facility] Results Received Date/Time: [facility] Reported Date/Time: Result Comment: Refe rence Range < or = 19.6 Risk: Optimal < or = 19.6 Moderate NA High >19.6 Adult cardiovascular event risk category cut points (optimal, moderate, high) are based on [employer] population data from 05/2011. This insulin assay shows strong cross-reactivity for some insulin analogs (lispro, aspart, and glargine) and much lower cross-reactivity with others (detemir, glulisine). Performed By: #### 5 61 #### [facility] [address] [place] [address] Vitamin B12on 06-26-2021 Cobalamin (Vitamin B12) [Mass/Vol] 1672 pg/mL High 211-946 [facility] Produce Wrapper Comment on above: Performed By: #### B 12 #### [facility] [address], [place] [id number] Vitamin D 25-OHon 06-26-2021 VIT D 25 OH 45 ng/ml Normal >29 [facility] Produce Wrapper Comment on above: Result Comment: Tiffany min D Status Deficiency <20 ng/mL Insufficiency 20-29 ng/mL Optimal 30-100 ng/mL Possible Toxicity >=150 ng/mL Performed By: #### V ITD, CBCAD, CMP #### [facility] [address], [place] [id number] CNOVon 06-23-2021 CNOV Office Visit (ORAVON ) MEERA MCKOY ([id number]) 1950 M Date Time Provider Department 06/23/21 11:45 AM GAVIN ELLIOTT During your visit today, we recorded the following information about you: Gavin Elliott DO 06/23/2021 11:46 AM Signed Meera Mckoy is here today at request of Dr. Gordo Nova specifically for consultation of my opinion in regards to the chief complaint listed below. Correspondence will be shared today via the [employer] electronic health record or through regular mail, where applicable. CHIEF COMPLAINT: Meera Mckoy is a 71 year old male who presents today for new evaluation of right hip. CONSULTATION NOTE Correspondence will be shared today via the [employer] health record or through regular mail, where [...] hip joint Informed Consent Consent Obtained: Verbal Yermo Protocol A moment to CARE was completed. 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 Normal [facility] CNOVon 06-19-2021 CNOV Office Visit (LOORRM ) MEERA MCKOY ([id number]) 1950 M Date Time Provider Department 06/19/21 11:45 AM GORDO NOVA During your visit today, we recorded the following information about you: Weight Height 116.6 kg 1.803 m Gordo Nova II, MD 06/23/2021 12:59 PM Signed [facility] [address] [place], [place] [address] CLINIC NOTE Department of Orthopaedics - Katrina Nova II, M.D. NAME: MEERA MCKOY CLINIC NO.: [id number] DATE OF SERVICE: 06/19/2021 CHIEF COMPLAINT: Pain [...] large belly. X-RAY: AP weight bearing shows nvab-cx-muvy on the superior weightbearing portion of the right hip with degenerative arthritis throughout the joint. IMPRESSION: Severe degenerative arthritis of the right hip. RECOMMEND: 1. Weight loss - discussed intermittent fasting. 2. Patient wants to get some relief of pain before he goes to [place] in July and then is considering having a total hip done upon his return. We have suggested a hip injection by Dr. Elliott. The patient is anxious to have this done, we will schedule. We will plan on doing his hip 3 months after the hip injection. Dictated By: Gordo Nova II, M.D. Date Dictated: 06/19/2021 Date Typed: [facility] 06/20/2021 JOB# [id number] Gordo Nova II, MD 06/29/2021 3:13 PM Signed Addended by: GORDO NOVA II on: 06/29/2021 03:13 PM Modules accepted: Orders Biomedical Specialist: Transcribed Clinic Note (osiris) ID: [id number] Author: GORDO NOVA Signed by GORDO NOVA MD on 06/23/2021 at 12:59 PM Document text: [facility] [address] [place], [place] [address] CLINIC NOTE Department of Orthopaedics - Katrina Nova II, M.D. NAME: TIMMY MEERA Dayana CLINIC NO.: [id number] DATE OF SERVICE: 06/19/2021 CHIEF COMPLAINT: Pain [...] large belly. X-RAY: AP weight bearing shows ulme-dr-vwbu on the superior weightbearing portion of the right hip with degenerative arthritis throughout the joint. IMPRESSION: Severe degenerative arthritis of the right hip. RECOMMEND: 1. Weight loss - discussed intermittent fasting. 2. Patient wants to get some relief of pain before he goes to [place] in July and then is considering having a total hip done upon his return. We have suggested a hip injection by Dr. Elliott. The patient is anxious to have this done, we will schedule. We will plan on doing his hip 3 months after the hip injection. Dictated By: Gordo Nova II, M.D. Date Dictated: 06/19/2021 Date Typed: matt 06/20/2021 JOB# [id number] -- Refe (more content not included)... Normal [facility] XR HIP 3V PELV+ AP/LAT RTon 06-19-2021 [...] Severe right hip joint space narrowing with vtgf-oy-tprr contact, subchondral sclerosis and marginal osteophytes. Moderate degenerative changes in the left hip. Sacroiliac joints and pubic symphysis are maintained. Incompletely assessed lower lumbar spine degenerative changes. Brachytherapy seeds project over the prostate. IMPRESSION: Severe right hip osteoarthritis. Lacquer Dipping 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: TAPAN Transcribe Date/Time: Jun 19 2021 11:35A Dictated by : ABI HAWTHORNE MD This examination was interpreted and the report reviewed and electronically signed by: GORDO ANDRE MD on Jun 19 2021 12:19PM EST [id number] Normal [facility] XR Pelvis and Hip - right AP and Lateral frogon 06-19-2021 IMPRESSION: Severe right hip osteoarthritis. [employer] Di[employer] 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: [email or web address] Transcribe Date/Time: Jun 19 2021 11:35A Dictated [...] Severe right hip joint space narrowing with ulkf-yo-vesh contact, subchondral sclerosis and marginal osteophytes. Moderate degenerative changes in the left hip. Sacroiliac joints and pubic symphysis are maintained. Incompletely assessed lower lumbar spine degenerative changes. Brachytherapy seeds project over the prostate. DIVISION OF RADIOLOGY Provider, [facility] - 06/19/2021 * * *Final [...] Severe right hip joint space narrowing with ytza-ah-hylh contact, subchondral sclerosis and marginal osteophytes. Moderate degenerative changes in the left hip. Sacroiliac joints and pubic symphysis are maintained. Incompletely assessed lower lumbar spine degenerative changes. Brachytherapy seeds project over the prostate. IMPRESSION IMPRESSION: Severe right hip osteoarthritis. Lacquer Dipping 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: PSCB Transcribe Date/Time: Jun 19 2021 11:35A Dictated by : ABI HAWTHORNE MD This examination was interpreted and the report reviewed and electronically signed by: GORDO ANDRE MD on Jun 19 2021 12:19PM [facility] Radiology Study observation (narrative) [facility] XR Pelvis and Hip - right AP and Lateral frogOrdered By: [facility] Provider on 06-19-2021 [facility] XR FOOT GEMINI MIN 3 VIEWSon [...] by: MEERA TURPIN Date: 2020-12-03 16:41 Normal [facility] Vital Signs Date Time Vital Sign Value Performing Clinician Facility 07-12-2024 14:45-0500 Body mass index (BMI) [Ratio] 35.58 kg/m2 Mona Reese DO Work Phone: [facility] 07-12-2024 14:45-0500 Body weight 112.49 kg Mona Reese DO Work Phone: [facility] 07-12-2024 14:45-0500 Diastolic blood pressure 68 mm[Hg] Mona Reese DO Work Phone: [facility] 07-12-2024 14:45-0500 Heart rate 105 /min Mona Reese DO Work Phone: [facility] 07-12-2024 14:45-0500 SaO2% (BldA) [Mass fraction] 94 % Mona Reese DO Work Phone: [facility] 07-12-2024 14:45-0500 Systolic blood pressure 128 mm[Hg] Mona Reese DO Work Phone: [facility] 04-14-2024 09:50-0400 Body height 177.8 cm Cely Marley MD Work Phone: [facility] 04-14-2024 09:50-0400 Body mass index (BMI) [Ratio] 35.44 kg/m2 Cely Marley MD Work Phone: [facility] 04-14-2024 09:50-0400 Body weight 112.04 kg Cely Marley MD Work Phone: [facility] 04-14-2024 09:50-0400 Diastolic blood pressure 76 mm[Hg] Cely Marley MD Work Phone: [facility] 04-14-2024 09:50-0400 Heart rate 78 /min Cely Marley MD Work Phone: [facility] 04-14-2024 09:50-0400 Systolic blood pressure 138 mm[Hg] Cely Marley MD Work Phone: [facility] 04-12-2024 14:34-0400 Body height 177.8 cm Bib Crispin ESCORT SERVICE ATTENDANT Work Phone: [facility] 04-12-2024 14:34-0400 Body mass index (BMI) [Ratio] 34.72 kg/m2 Yuerong Crispin ESCORT SERVICE ATTENDANT Work Phone: [facility] 04-12-2024 14:34-0400 Body weight 109.77 kg Yuerong Crispin ESCORT SERVICE ATTENDANT Work Phone: [facility] 04-12-2024 14:34-0400 Diastolic blood pressure 70 mm[Hg] Yuerong Crispin ESCORT SERVICE ATTENDANT Work Phone: [facility] 04-12-2024 14:34-0400 Heart rate 81 /min Yuerong Crispin ESCORT SERVICE ATTENDANT Work Phone: [facility] 04-12-2024 14:34-0400 SaO2% (BldA) [Mass fraction] 94 % Yuerong Crispin ESCORT SERVICE ATTENDANT Work Phone: [facility] 04-12-2024 14:34-0400 Systolic blood pressure 120 mm[Hg] Yuerong Crispin ESCORT SERVICE ATTENDANT Work Phone: [facility] 02-09-2024 14:25-0400 Body height 177.8 cm Mona Reese DO Work Phone: [facility] 02-09-2024 14:25-0400 Body mass index (BMI) [Ratio] 36.16 kg/m2 Mona Reese DO Work Phone: [facility] 02-09-2024 14:25-0400 Body weight 114.31 kg Mona Reese DO Work Phone: [facility] 02-09-2024 14:25-0400 Diastolic blood pressure 70 mm[Hg] Mona Reese DO Work Phone: [facility] 02-09-2024 14:25-0400 Heart rate 59 /min Mona Reese DO Work Phone: [facility] 02-09-2024 14:25-0400 SaO2% (BldA) [Mass fraction] 94 % Mona Reese DO Work Phone: [facility] 02-09-2024 14:25-0400 Systolic blood pressure 120 mm[Hg] Mona Reese DO Work Phone: [facility] 02-09-2024 09:25-0400 Body height 179.07 cm DO Mona Reese Work Phone: [facility] 02-09-2024 09:25-0400 Body mass index (BMI) [Ratio] 35.9 kg/m2 DO Mona Reese Work Phone: [facility] 02-09-2024 09:25-0400 Body weight 115.21 kg DO Mona Reese Work Phone: [facility] 04-09-2023 09:56-0400 Body height 180.3 cm Cely Marley MD Work Phone: [facility] 04-09-2023 09:56-0400 Body mass index (BMI) [Ratio] 32.92 kg/m2 Cely Marley MD Work Phone: [facility] 04-09-2023 09:56-0400 Body weight 107.05 kg Cely Marley MD Work Phone: [facility] 04-09-2023 09:56-0400 Diastolic blood pressure 68 mm[Hg] Cely Marley MD Work Phone: [facility] 04-09-2023 09:56-0400 Heart rate 68 /min Cely Marley MD Work Phone: [facility] 04-09-2023 09:56-0400 Systolic blood pressure 106 mm[Hg] Cely Marley MD Work Phone: [facility] 04-10-2022 11:29-0400 Body height 180.34 cm Mona Reese Work Phone: [facility] [address] DO Work Phone: 04-10-2022 11:29-0400 Body mass index (BMI) [Ratio] 31.8 kg/m2 Mona Reese Work Phone: [facility] DO Work Phone: 04-10-2022 11:29-0400 Body surface area Derived from formula 2.23 m2 Mona Reese Work Phone: [facility] [address] DO Work Phone: 04-10-2022 11:29-0400 Body weight 103.42 kg Mona Reese Work Phone: [facility] DO Work Phone: 04-10-2022 11:29-0400 Diastolic blood pressure 60 mm[Hg] Mona Reese Work Phone: [facility] DO Work Phone: 04-10-2022 11:29-0400 Heart rate 68 /min Mona Reese Work Phone: [facility] DO Work Phone: 04-10-2022 11:29-0400 Systolic blood pressure 128 mm[Hg] Mona Reese Work Phone: [facility] DO Work Phone: 09-10-2021 11:14-0400 Body height 180.3 cm Pacc 2 Work Phone: [facility] 09-10-2021 11:14-0400 Body temperature 97 [degF] Pacc 2 Work Phone: [facility] 09-10-2021 11:14-0400 Body weight 112.95 kg Pacc 2 Work Phone: [facility] 09-10-2021 11:14-0400 Diastolic blood pressure 62 mm[Hg] Pacc 2 Work Phone: [facility] 09-10-2021 11:14-0400 Heart rate 66 /min Pacc 2 Work Phone: [facility] 09-10-2021 11:14-0400 Respiratory rate 16 /min Pacc 2 Work Phone: [facility] 09-10-2021 11:14-0400 SaO2% (BldA) [Mass fraction] 100 % Pacc 2 Work Phone: [facility] 09-10-2021 11:14-0400 Systolic blood pressure 103 mm[Hg] Pacc 2 Work Phone: [facility] 09-10-2021 09:38-0400 Body height 180.3 cm Lorna Scotch PA-C Work Phone: [facility] 09-10-2021 09:38-0400 Body weight 110.68 kg Lorna Scotch PA-C Work Phone: [facility] 03-13-2021 09:45-0400 Body height 180.34 cm Meera Daugherty Other [employer] Other Encounters Encounter Date Encounter Type Care Provider Facility Start: 07-12-2024 End: 07-12-2024 Office outpatient visit 40 minutes Mona Reese DO Work Phone: [facility] Comment on above: Marital disruption i nvolving estrangement (Primary Dx); Stricture of male urethra, unspecified stricture type; Personal history of prostate cancer; Recurrent kidney stones; Hyperuricemia; IFG (impaired fasting glucose); Morbid obesity (CMS/HCC); Obstructive sleep apnea syndrome Start: 05-10-2024 End: 05-10-2024 Patient encounter procedure Mona Reese DO Work Phone: [facility] Work Phone: Start: 04-26-2024 End: 04-26-2024 Discharged Recurring Mona Reese DO Work Phone: [facility] Start: 04-26-2024 Registered Recurring Mona garcia DO Work Phone: [facility] Start: 04-26-2024 End: 04-26-2024 ambulatory Mona Reese DO [facility] Phone: [facility] Work Phone: Start: 04-25-2024 End: 04-25-2024 ambulatory Mona Reese DO Work Phone: [facility] Work Phone: Start: 04-25-2024 End: 04-25-2024 Discharged Recurring Mona Reese DO Work Phone: [facility] [facility] Start: 04-14-2024 End: 04-14-2024 ambulatory [facility] Start: 04-14-2024 End: 04-14-2024 Office outpatient visit 25 minutes Cely Marley MD Work Phone: [facility] Comment on above: Shortness of breath (Primary Dx); Agatston coronary artery calcium score less than 100; Essential hypertension, benign; Mixed hyperlipidemia; Mild aortic stenosis; BMI 35.0-35.9,adult; Localized edema Start: 04-12-2024 Non-patient / Non-visit Mona Reese DO Work Phone: [facility] Work Phone: Start: 04-12-2024 End: 04-12-2024 Office outpatient visit 25 minutes Bib Roa ESCORT SERVICE ATTENDANT Work Phone: [facility] Comment on above: IFG (impaired fastin g glucose) (Primary Dx); Agatston coronary artery calcium score less than 100; Essential hypertension (CMS/HCC); Morbid obesity (CMS/HCC) Start: 04-12-2024 End: 04-12-2024 ambulatory MONA REESE Not Available Start: 02-15-2024 End: 02-15-2024 Refill Mona Centenocosmojanine DO Work Phone: [facility] Comment on above: Primary insomnia Start: 02-11-2024 End: 02-11-2024 Patient encounter procedure DO Mona Reese Work Phone: [facility] Work Phone: Start: 02-11-2024 End: 02-11-2024 ambulatory DO Mona Reese Work Phone: [facility] Work Phone: Start: 02-11-2024 Non-patient / Non-visit Mona Reese DO Work Phone: [facility] Work Phone: Start: 02-09-2024 End: 02-09-2024 Office outpatient visit 25 minutes Mona Centenoeduardo DO Work Phone: [facility] Comment on above: 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 (Primary Dx); Essential (primary) hypertension (CMS/HCC); Nonrheumatic aortic valve stenosis; Vitamin B12 deficiency; Obstructive sleep apnea syndrome; Restless leg syndrome; 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 (CMS/HCC); Heterotopic ossification of bone Start: 02-09-2024 End: 02-09-2024 ambulatory MONA REESE Not Available Start: 02-09-2024 End: 02-09-2024 ambulatory DO Mona Reese Work Phone: [facility] Work Phone: Start: 02-09-2024 End: 02-09-2024 Patient encounter procedure DO Mona Reese Work Phone: [facility] Work Phone: Start: 02-04-2024 End: 02-04-2024 External Result Encounter Essie Daugherty ESCORT SERVICE ATTENDANT Work Phone: [facility] Unsolicited Start: 02-04-2024 End: 02-04-2024 External Result Encounter Essie Daugherty ESCORT SERVICE ATTENDANT Work Phone: [facility] Unsolicited Start: 02-04-2024 End: 02-04-2024 Patient encounter procedure DO Mona Reese Work Phone: [facility] Start: 02-04-2024 End: 02-04-2024 ambulatory DO Mona Reese Work Phone: [facility] Work Phone: Start: 01-19-2024 End: 01-19-2024 ambulatory MONA J TARYNCOSMOK Not Available Start: 12-07-2023 End: 12-07-2023 ambulatory MONA J VASCHAK Not Available Start: 11-04-2023 End: 11-04-2023 ambulatory NIKOLEANALIA CRISPIN Not Available Start: 08-11-2023 End: 08-11-2023 ambulatory MONA J TARYNCHAK Not Available Start: 04-09-2023 End: 04-09-2023 Office outpatient visit 15 minutes Cely Marley MD Work Phone: [facility] Comment on above: Mixed hyperlipidemia (Primary Dx); Essential hypertension, benign; Obstructive sleep apnea syndrome Start: 01-31-2023 Elisabeth bull MD Work Phone: Orthopaedics Start: 10-09-2022 End: 10-09-2022 ambulatory DO Mona Reese Work Phone: [facility] Work Phone: Start: 10-09-2022 End: 10-09-2022 Patient encounter procedure DO Mona Reese Work Phone: [facility] Work Phone: Start: 10-09-2022 [...] sit 15 minutes Mona Reese Work Phone: [facility] [address] DO Work Phone: Start: 04-10-2022 ambulatory [...] Start: 09-10-2021 End: 09-10-2021 Admission to establishment [facility] Work Phone: [facility] Start: 09-10-2021 End: 09-10-2021 ambulatory [facility] Work Phone: Pre Anesthesia Comment on above: Pre-op evaluation (P rimary Dx); Primary osteoarthritis of right hip; Primary hypertension Start: 09-10-2021 End: 09-10-2021 Preprocedural examination done [facility] Work Phone: [facility] Work Phone: Start: 09-10-2021 End: 09-10-2021 Patient encounter procedure Lorna Jeni ZAPATA Work Phone: Orthopaedics Comment on above: Primary osteoarthrit is of right hip (Primary Dx) Start: 06-19-2021 End: 06-19-2021 Subsequent hospital visit by physician Sabrina Nova 1 Work Phone: Radiology Comment on above: Primary osteoarthrit is of right hip [M16.11] Start: 03-13-2021 Office outpatient vi sit 25 minutes Meera Daugherty [facility] Start: 02-03-2021 End: 02-04-2021 ambulatory JOBY CEDILLO [...] views Lorna Scotch PA-C Work Phone: Start: 01-16-2022 Radiologic examinati on pelvis 1/2 views Gordo Nova MD Work Phone: Start: 10-29-2021 Radiologic examinati on pelvis 1/2 views Lorna Scotch PA-C Work Phone: Start: 09-10-2021 Antibody screen Comment on above: Order Comment: Speci men Type: BLOOD SPECIMENOrdering Facility: [facility] Address: [address] [place], [place] [id number] Performed By: #### T [id number] ####LINA BLOOD BANKIA [id number] [place] [address] [facility] Start: 06-19-2021 Radex hip unilateral with pelvis 2-3 views Gordo Nova MD Work Phone: Start: 12-12-2020 Total colonoscopy Timothy Reese Work Phone: Start: 06-24-2020 Colonoscopy Essie Mo rris ESCORT SERVICE ATTENDANT Work Phone: Laser assisted in si tu [...] for malign ant neoplasm of colon [facility] Start: 12-02-2028 Lipid panel Lipid Screening [facility] Start: 03-30-2028 Lipid panel Lipid Panel [facility] Start: 02-03-2027 Diabetes Screening Diabetes Screenin g [facility] Start: 04-20-2025 End: 04-20-2025 Patient encounter procedure 04/20/2025 9:20 AM EST Office Visit [facility] [address] [facility] [address] [place] [id number] Cely Marley MD [address] [place] [address] [facility] Start: 2025 RSV Vaccine (1 - 1-d ose 75+ series) RSV Vaccine (1 - 1-dose 75+ series) [facility] Start: 10-08-2024 DIABETES SCREEN DIABETES SCREEN [facility] Start: 08-22-2024 End: 08-22-2024 Patient encounter procedure 08/22/2024 12:40 PM EDT Office Visit [facility] [address] [place] [phone] Mona Reese DO [address] [place] [address] [facility] Start: 08-12-2024 Medicare Annual Wellness Visit Medicare Annual Wellness Visit (AWV) [facility] Start: 08-11-2024 Medicare Annual Wellness (AWV) Medicare Annual Wellness (AWV) [facility] Start: 07-13-2024 End: 04-12-2025 CBC W Auto Differential panel - Blood CBC and differential Lab Routine IFG (impaired fasting glucose) Expected: 07/13/2024 (Approximate), Expires: 04/12/2025 [facility] Work Phone: Comment on above: Expected: 07/13/2024 (Approximate), Expires: 04/12/2025 Start: 07-13-2024 End: 10-11-2024 Comprehensive metabolic 2000 panel - Serum or Plasma Comprehensive metabolic panel Lab Routine IFG (impaired fasting glucose) Expected: 07/13/2024 (Approximate), Expires: 10/11/2024 [facility] Comment on above: Expected: 07/13/2024 (Approximate), Expires: 10/11/2024 Start: 07-13-2024 End: 04-12-2025 Hemoglobin a1c with eag Hemoglobin a1c with eag Lab Routine IFG (impaired fasting glucose) Expected: 07/13/2024 (Approximate), Expires: 04/12/2025 [facility] Comment on above: Expected: 07/13/2024 (Approximate), Expires: 04/12/2025 Start: 07-12-2024 End: 07-12-2024 Patient encounter procedure 07/12/2024 2:30 PM EST Office Visit [facility] [address] [place] [address] Mona Reese DO [address] [place] [address] [facility] Start: 04-14-2024 End: 04-14-2024 Patient encounter procedure 04/14/2024 9:30 AM EDT Office Visit [facility] [address] [facility] [address] [place] [address] Cely Marley MD [address] [facility] [address] [place] [address] [facility] Start: 04-12-2024 End: 04-12-2024 Patient encounter procedure 04/12/2024 2:30 PM EDT Office Visit [facility] [address] [place] [address] Mona Reese DO [address] [place] [address] [facility] Start: 03-07-2024 End: 03-07-2024 Patient encounter procedure 03/07/2024 9:30 AM EDT Office Visit [facility] [address] [place] [address] Mona Reese, DO [address] [place] [address] [facility] Start: 02-13-2024 Covid-19 Vaccine () Covid-19 Vaccine () [facility] Start: 02-13-2024 Influenza vaccination Influenza Vacc ine (#1) [facility] Start: 02-09-2024 End: 02-09-2024 Patient encounter procedure 02/09/2024 2:30 PM EDT Office Visit [facility] [address] [place] [address] Mona Reese, DO [address] [place] [address] [facility] Start: 02-09-2024 Plain X-ray of right hip XR hip RT min 2V(w/wo pelvis)* [facility] Start: 02-09-2024 XR Hip - right 2 Views [facility] Start: 06-14-2023 Advance Directive Discussion Advance Directive Discussion [facility] Start: 05-24-2023 Zoster Vaccines (2 o f 2) Zoster Vaccines (2 of 2) [facility] Start: 04-09-2023 FUV, Provider: Cely Marley, Status: Pen, Time: 9:40 AM FUV, Provider: Cely Marley, Status: Pen, Time: 9:40 AM [facility] [address] DO Work Phone: Start: 02-12-2023 Influenza vaccination INFLUENZA (#1) [facility] Start: 09-10-2022 BP CONTROLLED (<130/80) BP CONTROLLE D (<130/80) [facility] Start: 06-14-2022 ADVANCE DIRECTIVE DISCUSSION ADVANCE DIRECTIVE DISCUSSION [facility] Start: 06-14-2022 DEPRESSION ASSESSMENT DEPRESSION ASS ESSMENT [facility] Start: 02-12-2022 Influenza vaccination INFLUENZA (#1) [facility] Start: 09-10-2021 End: 09-10-2022 ECG COMPLETE ECG COMPLETE ECG Routine Pre-op evaluation Primary osteoarthritis of right hip Expected: 09/10/2021, Expires: 09/10/2022 [facility] Work Phone: Comment on above: Expected: 09/10/2021 , Expires: 09/10/2022 Start: 06-14-2021 ADVANCE DIRECTIVE DISCUSSION ADVANCE DIRECTIVE DISCUSSION [facility] Start: 02-20-2021 COVID-19 VACCINE (3 - Booster for Moderna series) COVID-19 VACCINE (3 - Booster for Moderna series) [facility] Start: 11-15-2020 COVID-19 VACCINE (3 - Booster for Moderna series) COVID-19 VACCINE (3 - Booster for Moderna series) [facility] Start: 11-15-2020 COVID-19 VACCINE (3 - Moderna series) COVID-19 VACCINE (3 - Moderna series) [facility] Start: 2015 PNEUMOCOCCAL: 65+ (1 - PCV) PNEUMOCOCCAL: 65+ (1 - PCV) [facility] Start: 2015 PNEUMOVAX AGE 65 AND OVER WITH 5YR LOOKBACK (#1) PNEUMOVAX AGE 65 AND OVER WITH 5YR LOOKBACK (#1) [facility] Start: 05-16-2013 DIABETES SCREEN DIABETES SCREEN [facility] Start: 2000 SHINGRIX VACCINE (1 of 2) SHINGRIX VACCINE (1 of 2) [facility] Start: 1995 COLOGUARD (FIT-DNA) COLOGUARD (FIT-D NA) [facility] Start: 1995 Colonoscopy COLONOSCOPY [facility] Start: 1995 COLORECTAL CANCER SCREENING COLORECTAL CANCER SCREENING [facility] Start: [address] COLONOGRAPHY [facility] Start: 1995 FECAL OCCULT BLOOD FECAL OCCULT BLOO D [facility] Start: 1995 Screening for malign ant neoplasm of colon [facility] Start: 1995 [facility] Start: 1985 LIPID SCREEN LIPID SCREEN [facility] Start: 1972 DTaP/Tdap/Td Vaccine s (1 - Tdap) DTaP/Tdap/Td Vaccines (1 - Tdap) [facility] Start: 1969 Urine microalbumin profile [facility] Start: 1968 ANNUAL PCP TEAM SHOTBLAST EQUIPMENT OPERATOR MASON DISEASE VISIT ANNUAL PCP TEAM CHRONIC DISEASE VISIT [facility] Start: 1968 Anxiety Screening Anxiety Screening [facility] Start: 1968 BP CONTROLLED (<130/80) BP CONTROLLE D (<130/80) [facility] Start: 1968 Depression Screening Depression Scre ening [facility] Start: 1968 HEPATITIS C SCREENING HEPATITIS C [facility] Start: 1968 Hepatitis C screening Hepatitis C [facility] Start: 1962 Adult depression screening assessment DEPRESSION SCREENING [facility] Start: 1956 PNEUMOCOCCAL: 65+ (1 - PCV) PNEUMOCOCCAL: 65+ (1 - PCV) [facility] Start: 1950 ABDOMINAL AORTIC ANEURYSM SCREENING ABDOMINAL AORTIC ANEURYSM SCREENING [facility] Start: 1950 Abdominal aortic aneurysm screening Abdominal Aortic Aneurysm Screening [facility] Start: 1950 Medicare Annual Wellness Visit Medicare Annual Wellness Visit (AWV) [facility] Start: 1950 Screening for malign ant neoplasm of colon [facility] Basic metabolic 1998 panel - Serum or Plasma Basic metabolic panel Lab Routine 02/04/2024 9:06 AM EDT [employer] Work Phone: End: 11-27-2022 Radiologic examination pelvis 1/2 views XR PELVIS 1V AP Radiology Routine S/P hip replacement, right 1 Occurrences starting 10/28/2021 until 11/27/2022 [facility] Work Phone: Comment on above: 1 Occurrences starti ng 10/28/2021 until 11/27/2022 [facility] Immunizations Immunization Date Immunization Notes Care Provider Falguni frye 04-04-2024 influenza, high dose seasonal, preservative-free Yuerogerman Roa ESCORT SERVICE ATTENDANT Work Phone: [facility] 04-04-2024 RSV, recombinant, protein subunit RSVpreF, adjuvant reconstitu, 120mcg/0.5mL, PF (Arexvy) Nikoleanalia Roa ESCORT SERVICE ATTENDANT Work Phone: [facility] 07-21-2023 zoster vaccine recombinant Essiewen Daugherty ESCORT SERVICE ATTENDANT Work Phone: [facility] 03-29-2023 influenza, seasonal, injectable Cely Marley MD Work Phone: [facility] Work Phone: 03-29-2023 Influenza, Seasonal, Quadrivalent, Adjuvanted Essie Daugherty ESCORT SERVICE ATTENDANT Work Phone: [facility] 03-29-2023 zoster vaccine recombinant Essie Daugherty ESCORT SERVICE ATTENDANT Work Phone: [facility] 03-29-2023 influenza virus vaccine, unspecified formulation Essie Daugherty ESCORT SERVICE ATTENDANT Work Phone: [facility] 03-17-2022 influenza, seasonal, injectable Mona Reese Work [facility]: [facility] [address] DO Work Phone: Comment on above: Series: 03-03-2022 influenza, high dose seasonal, preservative-free Mona Reese Work Phone: [facility] 2021 influenza, high dose seasonal, preservative-free Mona Reese Work Phone: [facility] 09-20-2020 Moderna COVID-19 Vaccine 100 MCG/0.5ML Intramuscular Suspension [facility] Reese [facility] [address] DO Work Phone: 08-23-2020 Moderna COVID-19 Vaccine 100 MCG/0.5ML Intramuscular Suspension [facility]a Reese Work [facility] Work Phone: 03-21-2020 Fluad Quadrivalent 0 .5 ML Intramuscular Prefilled Syringe Mona Reese Work Phone: [place] [address] DO Work Phone: 03-21-2020 Seasonal trivalent influenza vaccine, adjuvanted, preservative free Cely Marley MD Work Phone: [facility] Work Phone: 03-16-2020 influenza, high dose seasonal, preservative-free Mona Reese Work Phone: [place] [address] DO Work Phone: 03-30-2019 Seasonal trivalent influenza vaccine, adjuvanted, preservative free Mona Reese Work Phone: [facility] 03-14-2019 influenza, high dose seasonal, preservative-free Cely Marley MD Work Phone: [facility] Work Phone: 03-14-2019 influenza, injectabl e, quadrivalent, preservative free Mona Reese Work Phone: [place] [address] DO Work Phone: 06-14-2018 influenza, seasonal, injectable Mona Reese Work Phone: [place] [address] DO Work Phone: 06-14-2018 pneumococcal polysaccharide vaccine, 23 valent Mona Reese Work Phone: [place] [address] DO Work Phone: 03-08-2018 Seasonal trivalent influenza vaccine, adjuvanted, preservative free Mona Reese Work Phone: [facility] 04-02-2017 Flu vaccine, quadrivalent, high-dose, preservative free, age 65y+ (FLUZONE) Cely Marley MD Work Phone: [facility] Work Phone: 04-02-2017 influenza, high dose seasonal, preservative-free Mona Viveros Mary Ann Work Phone: [facility] 10-30-2016 pneumococcal polysaccharide vaccine, 23 valent Mona Viveros Mayr Ann Work Phone: [facility] 05-01-2016 influenza, high dose seasonal, preservative-free Cely Marley MD Work Phone: [facility] Work Phone: 06-03-2015 influenza, seasonal, injectable, preservative free Cely Marley MD Work Phone: [facility] Work Phone: 06-03-2015 pneumococcal conjuga te vaccine, 13 valent Mona Viveros Taryneduardo Work Phone: [facility] 06-03-2015 seasonal influenza, intradermal, preservative free Mona Viveros Mary Ann Work Phone: [facility] 250 DO Work Phone: 04-08-2014 influenza, seasonal, injectable Mona Felice Mary Ann Work Phone: [facility] 250 DO Work Phone: 05-01-2009 novel [id number], preservative-free, injectable Mona Felice Mary Ann Work Phone: [facility] 250 DO Work Phone: 04-03-1999 pneumococcal polysaccharide vaccine, 23 valent Mona Viveros Taryneduardo Work Phone: [facility] 250 DO Work Phone: Payers Date Payer Category Payer Self-pay [id number] 2021 Private Health Insurance [employer] [id number] 2020 Unknown MMO MMO MEDICARE SUPPLEMENT [id number] 2020-Present [phone] [address] [place] [address] Indemnity [id number] 2020 Unknown 2015 Medicare MEDICARE MEDICAR E A AND B [id number] 2015-Present [phone] [address] [address] [place] [address] Medicare [id number] 2015 Medicare [id number] 1959 Medicare [id number] 1959 Unknown [id number] 1950 Unknown [id number] 2.16.840.1.285462.3.579.2. 593 1950 Unknown [id number] 2.16840.1.013327.3.579.2. 593 1950 Unknown [id number] 2.16.840.1.430900.3.579.2. 593 1950 Unknown [id number] 2.16.840.1.896326.3.579.2. 593 1950 Unknown [id number] 2.16.840.1.606414.3.579.2. 356 1950 Unknown [id number] 2.16.840.1.055251.3.579.2. 356 1950 Unknown [id number] 2.16.840.1.731701.3.579.2. 1259 1950 Unknown [id number] 2.16.840.1.597163.3.579.2. 1259 1950 Unknown [id number] 2.16.840.1.209446.3.579.2. 1259 1950 Unknown [id number] 2.16.840.1.486453.3.579.2. 1259 1950 Unknown [id number] 2.16.840.1.054337.3.579.2. 1259 1950 Unknown [id number] 2.16.840.1.275027.3.579.2. 1259 1950 Unknown [id number] 2.16.840.1.985251.3.579.2. 1244 Unknown [id number] 2.16.840.1.576193.3.579.2. 531 Unknown [id number] 2.16.840.1.934461.3.579.2. 531 Unknown [id number] 2.16.840.1.635340.3.579.2. 531 Unknown [id number] 2.16.840.1.338878.3.579.2. 531 Unknown [id number] 2.16.840.1.497424.3.579.2. 531 Social History Date Type Detail Facility Start: 09-10-2021 End: 12-29-2022 Tobacco smoking status NHIS Ex-smoker [facility] Work Phone: Start: 06-14-1969 End: 06-14-1994 History of tobacco use Current smoker [facility] Work Phone: Start: 09-10-2021 End: 07-12-2024 Alcohol intake Current drinker of alcohol (finding) [facility] Start: 09-10-2021 History SDOH Alcohol Comment SOCIAL 3x/week [facility] Start: 1950 Sex Assigned At Male C [facility] Start: 05-05-2021 End: 04-14-2024 Exposure to SARS-CoV-2 (event) Not sure [facility] Start: 09-10-2021 End: 08-11-2023 Sex Assigned At [facility] [employer] Other Start: 09-10-2021 End: 08-11-2023 No illicit drug use No illicit drug use -[facility] 250 DO Work Phone: Comment on above: pipe smoker - quit 1 981; Start: 06-14-1969 End: 06-14-1994 History of tobacco use Cigarette Smoker [facility] Start: 09-10-2021 End: 12-29-2022 Tobacco use and exposure Smokeless tobacco non-user [facility] Start: 12-18-2021 End: 12-18-2021 Tobacco smoking status NHIS Never smoked tobacco (finding) [facility] National Score (1-100), lower number is lower risk 75 [facility] Start: 08-26-2021 Gender identity Identifies as male gender (finding) [facility] Start: 08-26-2021 Sexual orientation Heterosexual (angela centeno) [facility] Start: 04-09-2023 Tobacco use and exposure Former smokeless tobacco user [facility] Work Phone: Start: 1950 [facility] Work Phone: How often to you [...] in the morning [facility] Start: 04-26-2024 End: 07-11-2024 Sex Male (finding) [facility] Medical Equipment Procedure Code Equipment Code Equipment Origin al Text Equipment Identifier Dates Mdm Liner X3 Ins ert 48mm X 28mm [id number] Start: 10-07-2021 Liner Mdm 42mm E Cocr Acetabular 2 Mobility Modular Hip - [id number] Start: 10-07-2021 Head V40 Lfit 28 mm -4mm Offset Taper Cocr Femoral Primary Hip - [id number] Start: 10-07-2021 Shell Trident Ii 52mm E Tritanium Acetabular 5 Screw Hole Cluster Sterile - [id number] Start: 10-07-2021 Stem Accolade Ii 9 132d Femoral - [id number] Start: 10-07-2021 Clinical Notes 01-12-2010 to 07-12-2024 Mona Reese, DO - 07/12/2024 2:30 PM EST Note Date & Type Note Facility 07-12-2024 History of Presen t illness Narrative Images from the original note were not included. Meera Mckoy is a 74 y.o. male presents with chief complaint of 3 Month OV HPI: HPI Patient did not complete labs ptv --- Patient taking tirzepatide through [facility]. History of Present Illness The patient presents for weight management, anxiety, and urinary issues. He has been experiencing weight gain, with a recent decrease to 41 pounds a few weeks prior. His target weight is in the lower 30s. He consumes vodka, which contains 150 calories, but refrains from eating at night. His dietary habits include substituting salad for pizza during lunch and consuming a small turkey sandwich with sweet potato, sans bread. He reports no feelings of hunger. He is on Ozempic. He reports experiencing anxiety, which he attributes to the initial use of his CPAP machine. His anxiety levels fluctuate, with some days being worse than others. He also experiences periods of depression, which he believes are situational rather than chronic. He is currently dealing with financial stressors, including credit card debt and a strained relationship with his . He has expressed interest in joint counseling sessions with his . He reports difficulty with urination, including a prolonged time to initiate urination, intermittent flow, and dribbling. He has noticed a change in the direction of his urine stream, which he believes may be due to pressure. He is not currently under the care of a urologist. He is on daily Cialis, which initially provided relief, but its efficacy has since diminished. He has a history of prostate cancer, treated with radiation seeds. SOCIAL HISTORY He drinks vodka. MEDICATIONS Current: Cialis, Ozempic HISTORIES: PAST MEDICAL HISTORY: Past Medical History: Diagnosis Date Agaton coronary artery calcium score less than 100 Allergic rhinosinusitis Anxiety 08/16/2023 Bilateral nephrolithiasis Cervical spondylosis without myelopathy COVID-19 URI breakthrough recieved ab infusion Esophagitis Essential hypertension (CMS/HCC) History of colonic polyps History of right hip replacement 12/30/2022 IFG (impaired fasting glucose) Insomnia Nontraumatic complete tear of right rotator cuff Obstructive sleep apnea (adult) (pediatric) Primary osteoarthritis of both knees Prostate cancer (CMS/HCC) 2009 GS 6 w/ brachytherapy Proteins serum plasma low Pure hypercholesterolemia (CMS/HCC) Restless leg syndrome Thrombophlebitis 12/30/2022 Vitamin B12 deficiency Vitamin D deficiency SURGICAL HISTORY: Past Surgical History: Procedure Laterality Date CARPAL TUNNEL RELEASE Right 2015 CATARACT EXTRACTION Bilateral 09/2023 COLONOSCOPY W/ POLYPECTOMY HIP SURGERY Right 10/07/2021 Dr. Pack KNEE CARTILAGE SURGERY Left HI ARTHROCENTESIS ASPIR&/INJ INTERM JT/BURS W/O US Right HI ARTHROCENTESIS ASPIR&/INJ MAJOR JT/BURSA W/O US Left HI CV STRS TST XERS&/OR RX CONT ECG W/SI&R myoview SHOULDER SURGERY Left SOCIAL HISTORY: Social History Tobacco Use Smoking status: Former Current packs/day: 0.00 Types: Cigarettes Start date: 1969 Quit date: 1994 Years since quittin.0 Smokeless tobacco: Never Substance Use Topics Alcohol [...] tadalafil (Cialis) 10 MG tablet As directed TAKE NEEDED for erectile dysfunction timolol (Timoptic) 0.25 % ophthalmic solution Every 24 hours zolpidem (AMBIEN) 10 mg, Oral, Nightly PRN ALLERGIES: No Known Allergies PHYSICAL EXAM: Visit Vitals Smoking Status Former BP Readings from Last 3 Encounters: 04/12/24 120/70 02/09/24 120/70 01/19/24 140/70 Wt Readings from Last 3 Encounters: 04/12/24 242 lb 02/09/24 252 lb 01/19/24 252 lb Physical Exam Constitutional: Appearance: He is obese. Cardiovascular: Rate and Rhythm: Normal rate and regular rhythm. Heart sounds: Murmur heard. Systolic murmur is present with a grade of 2/6. Pulmonary: Breath sounds: Normal breath sounds. Genitourinary: Penis: Normal. Testes: Normal. Rectum: Normal. Comments: Prostate small, nontender Musculoskeletal: Right lower leg: No edema. Left lower leg: No edema. Psychiatric: Mood and Affect: Affect is blunt and flat. Speech: Speech normal. Cognition and Memory: Cognition and memory normal. Physical Exam Results 2009-[facility]-Dr Ku 40gm prostate w elevated psa PSA=4.77 in - 3.77 in 6-10 %9 pr bx 04-15-10=vo. 26ml path= 1. Right base prostate, biopsy (A) - Infiltrating adenocarcinoma, Annabel score 7 (3+4) involving 5% of one of two biopsy cores. 2. Right mid prostate, biopsy (B) - Infiltrating adenocarcinoma, Annabel score 7 (3+4) involving 10% of two of two biopsy cores. 3. Right apex prostate, biopsy (C) - Benign prostatic parenchyma. 4. Left base prostate, biopsy (D) - Infiltrating adenocarcinoma, Annabel score 7 (3+4) involving 35% of three of three biopsy cores. 5. Left mid prostate, biopsy (E) - Infiltrating adenocarcinoma, [place] score 7 (3+4) involving 60% of two of two biopsy cores. 6. Left apex prostate, biopsy (F) - Infiltrating adenocarcinoma, Annabel score 6 (3+3) involving 5% of biopsy core. Bone scan= negative outside report Chest CT=negative outside report [facility] 05-03-10= no mets ; bilat. renal calculi largest lt kd 3-4mm ASSESSMENT AND PLAN: Assessment & Plan Diagnosis Plan 1. Marital disruption involving estrangement counseled-rec Cheondoism counseling group-discussed 2. Stricture of male urethra, unspecified stricture type Ambulatory referral to Urology incomplete bladder emptying /urine spraying/sexual dysfunction highly suspect either from seeds or stone trauma 3. Personal history of prostate cancer elevated PSA=4.77 in 03-23 pr bx 04-15-10=vol. 26ml path= prostate cancer GS of 6 and 7 all except rt apex Seeds implant 05-21-10 Staging=negative 4. Recurrent kidney stones inc UA urine and oxalate no stone analysis to be found hx bilateral stones 5. Hyperuricemia no hx gout/tophi 6. IFG (impaired fasting glucose) 7. Morbid obesity (CMS/HCC) long time phenrteramine in the mid 1999- ozempic 2020- now: rec exercise/addition phenteramine ( tolerated in past 8. Obstructive sleep apnea syndrome uses nCPAP 1. Weight management. A prescription for phentermine will be issued to aid in weight loss. He is advised to monitor for any adverse effects and discontinue use if necessary. 2. Anxiet/depression. The patient's anxiety appears to be situational, likely related to his current life circumstances. He is encouraged to seek counseling services, preferably with a Cheondoism counselor, to address his anxiety and marital issues. Consider wellbutrin 3. Suspected urethral stricture. The patient's symptoms of urinary hesitancy and dribbling may be due to a urethral stricture, possibly caused by previous radiation seed treatment for prostate cancer. A referral to Dr. Stevo Haddad will be made for further evaluation and potential dilation of the urethra. Follow-up The patient will follow up in 1 month. 60' documented in this encounter [facility] 05-10-2024 Evaluation note Diagnosis Onset Date Resolution Greater trochanteric bursitis of right hip acute April 152023 8:43am Heterotopic ossification of joint acute April 152023 8:43am History of total hip arthroplasty acute May 10, 024 8:43am Trigger finger, right ring finger acute May 10 8:43am [facility] Work Phone: 1(141) 188-786311-01-2024 History of Present illness Narrative* Cely Marley MD - 04/14/2024 9:30 AM EDT Subjective Meera Mckoy is a 74 y.o. male Chief Complaint Follow-up HPI Patient is here for follow-up to management for history of mild exertional shortness of breath, hypertension hyperlipidemia. Since last time I saw him he continued to have similar symptoms and similar functional status. He denies chest pain. He underwent extensive evaluation in the past but appearsto be negative. His calcium scoring showed scoring [...] By signing my name below, I, Elsy Soria LPN , Scrb[place]ke attest that this documentation has been prepared under the direction and in the presence of MD Tu. Provider Attestation - Scribe documentation All medical record entries made by the Scribe were at my direction and personally dictated by me. Ihave reviewed the chart and agree that the record accurately reflects my personal performance of the history, physical exam, discussion and plan. documented in this [facility] Work Phone: 1(163) 148-855011-01-2024 Instructions* Patient Instructions* Elsy Lara LPN - 04/14/2024 9:30 AM [...] on dietary changes Provided instructions on exercise. * Attachments The following attachments cannot be sent through Care Everywhere. * Heart Healthy Diet (Hebrew) documented in this [facility] Work Phone: 1(221) 881-161610-30-2024 History of Present illness Narrative* Bib Roa, ESCORT SERVICE ATTENDANT - 04/12/2024 2:30 PM EDT Images from the original note were not included. Meera Mckoy is a 74 y.o. male presents with chief complaint of 2 [facility] HPI: HPI History of Present Illness The [...] 10/07/2021 Dr. Pack KNEE CARTILAGE SURGERY Left HI ARTHROCENTESIS ASPIR&/INJ INTERM JT/BURS W/O US Right HI ARTHROCENTESIS ASPIR&/INJ MAJOR JT/BURSA W/O US Left HI CV STRS TST XERS&/OR RX CONT ECG [...] months. He is currently on Mounjaro 10 mg,with the maximum allowable dose being 15 mg. [...] hip issues. He is advised to continue withresistance exercises to aid in weight loss and [...] is supervising patient care. documented in this encounterUniversity [id number] Instructions* Patient Instructions* Bib Roa NP - 04/12/2024 2:30 PM [...] years of age, are 3.3-4.3 times more likelyto than their age matched high-fit counterparts. The benefit of exercise is immediate after just bouts of exercise. Moderate to vigorous exercise is beneficial in psychological, anti-arrhythmic, anti- thrombotic, anti-atherosclerotic, and anti-ischemic aspects. documented in this [facility]09-03-2024 Telephone encounter Note* Telephone Encounter - Rachael Bales - 02/15/2024 9:21 AM EDT [id number] Miscellaneous Notes* Telephone Encounter - Rachael Bales - 02/15/2024 9:21 AM EDT [facility] documented in this [facility]08-28-2024 History of Present illness Narrative* Mona Reese, - 02/09/2024 2:30 PM EDT Images from the original note were not [...] and sought orthopedic consultation earlier today. The orthopedistsuggested that surgical intervention could be risky and [...] or 5 more doses of Ozempic 0.5 leftand plans to continue using them. He reports [...] 10/07/2021 Dr. Pack KNEE CARTILAGE SURGERY Left HI ARTHROCENTESIS ASPIR&/INJ INTERM JT/BURS W/O US Right HI ARTHROCENTESIS ASPIR&/INJ MAJOR JT/BURSA W/O US Left HI CV STRS TST XERS&/OR RX CONT ECG [...] leg syndrome 7. 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(CMS/HCC) Assessment & Plan 1. Weight management. His [...] be provided, which can be obtained from [facility]. This medication should be administered as weekly injections of 0.5 mL. The cost of the medication was discussed, and he was informed that it would be delivered to his home once the Ozempic samplesare depleted. If he does not experience any side effects such as nausea or constipation, he can continue with the current dosage. 2. Vitamin B12 deficiency. His vitamin B12 levels are slightly low at 224. He used to take a B12 supplement and is now advisedto restart it. A recommendation was made for him to start taking mqbi-ait-hgmhauk vitamin B12 supplements at a dose of 500 mcg. A prescription will be sent to facilitate this. 3. Hypertension. His blood pressure is well-controlled with the current Norvasc regimen. No changes are needed at this time. 4. Hip pain. He visited an senior education specialist who recommended physical therapy and possibly injections as less aggressive treatment options before considering surgery. He is advised to follow up with physical therapy as recommended. 5. Echocardiogram. An echocardiogram is scheduled for Wednesday to further evaluate his cardiac function. Follow-up A follow-up visit is scheduled in 6 to 8 weeks. Visit completed with assistance from Essie ROBLES documented in this encounterUniversity [id number] Evaluation note* Diagnosis Onset Date Resolution Status Admit Date Greater trochanteric bursiti s of right hip acute February 08 8:59am Heterotopic ossification of joint acute February 08 8:59am History of total hip arthroplasty acute February 08 8:59am [facility] Work Phone: 1(961) 681-148010-27-2023 History of Present illness Narrative* Cely Marley [...] Obstructive sleep apnea syndrome [facility]: 1(490) 565-951710-27-2023 Instructions* Patient Instructions* Kelli Mitchell LPN - [...] this [facility]Select [facility] Phone: 1(735) 998-943008-20-2023 Miscellaneous Notes* Telephone Encounter - Gordo Nova MD - 01/31/2023 11:21 AM EDT rx sent to [facility] patient notified Gordo Nova II, MD [facility] Instructions* Patient Instructions* Lorna Ngo PA-C - 07/06/2022 10:36 AM EST Gentle stretching daily. Take Indomethicin 75mg twice a day WITH FOOD. Chair squats and/or leg press weight exercises to improve quadriceps strength for getting out of a chair. Followup in 3 months. documented in this encounterJoint [facility]01-23-2023 History of Present illness Narrative* Lorna [...] 06, 2022 10:06 AM documented in this encounterJoint [facility]01-[facility]-2023 History of Present illness Narrative* RT [...] 06, 2022 9:37 AM documented in this encounterJoint [facility]08-05-2022 NoteHNO ID: [id number] Author: Gordo Nova MD Service: ? Author Type: Physician Type: Progress Notes Filed: 01/16/2022 4:48 PM Note Text: see dictated note Gordo Nova II [facility]08-05-2022 NoteHNO ID: [id number] Author: Gordo Nova MD Service: Orthopaedic Surgery Author Type: Physician Type: Progress Notes Filed: 01/20/2022 3:07 PM Note Text: [facility] [address] [place] [address] CLINIC NOTE Department of Orthopaedics - [place] Gordo Nova II, M.D. NAME: MEERA MCKOY CLINIC NO.: [id number] DATE OF SERVICE: 01/16/2022 CHIEF COMPLAINT: Recheck of right hip. Right THR, 10/07/2021 - 3 months. The patient is doing well with his hip. He has lost 40 pounds since surgery. He has no symptoms. His x-rays of the hip look excellent. Dictated By: Gordo Nova II, M.D. Date Dictated: 01/19/2022 Date Typed: [facility] 01/20/2022 JOB# [id number]. [facility]-2022 NoteHNO ID: [id number] Author: RT Flavia(Dunia) Service: ? Author Type: Technologist Type: Progress [...] IV DATA: Not applicable SIGNED BY: RT Flavia(Dunia) January 16, 2022 11:03 [facility]08-05-2022 History of Present illness Narrative* Ludmila James [...] 16, 2022 11:03 AM documented in this encounterJoint [facility]07-18-2022 Miscellaneous Notes* Telephone Encounter - Gordo Nova MD - 12/29/2021 11:54 AM EDT rx sent to pharmacy on file Gordo Nova II, MD documented in this encounterJoint [facility]05-28-2022 NoteHNO ID: [id number] Author: Gordo Nova MD Service: ? Author Type: Physician Type: Progress Notes Filed: 11/08/2021 3:15 PM Note Text: SEE DICTATED NOTE Gordo Nova II, [facility]05-28-2022 History of Present illness Narrative* Gordo Nova MD - 11/08/2021 3:14 PM EDT SEE DICTATED NOTE Gordo Nova II, MD documented in this encounterJoint [facility]05-27-2022 NoteHNO ID: [id number] Author: Gordo Nova MD Service: Orthopaedic Surgery Author Type: Physician Type: Progress Notes Filed: 11/12/2021 4:04 PM Note Text: [facility] [address] [place] [id number] CLINIC NOTE Department of Orthopaedics - Katrina Nova II, M.D. NAME: MEERA MCKOY CLINIC NO.: [id number] DATE OF SERVICE: 11/07/2021 CHIEF COMPLAINT: Recheck of right hip. Right THR, 10/07/2021 - 4 and a half weeks. Incision area has healed very nicely and the area of rotation from the dressing tape has been completely healed. Okay to gradually resume full activities. Dictated By: Gordo Nova II, M.D. Date Dictated: 11/07/2021 Date Typed: [facility] 11/07/2021 JOB# [id number]. Mary[facility]05-18-2022 NoteHNO ID: [id number] Author: Lorna Ngo PA-C Service: ? Author Type: Physician Boiler Inspector Type: Progress Notes Filed: 10/29/2021 5:36 PM [...] this does not look like infection.[facility]05-18-2022 NoteHNO ID: [id number] Author: Lorna Ngo PA-C Service: ? Author Type: Physician Boiler Inspector Type: Progress Notes Filed: 10/29/2021 2:27 PM [...] Lorna Ngo PA-C October 29, 2021 12:59 [facility]05-18-2022 NoteHNO ID: [id number] Author: RT Ming(R) Service: ? Author Type: [...] BY: RT Ming(R) October 29, 2021 12:28 [facility]05-18-2022 History of Present illness Narrative* [...] for recheck. Patient was evaluated by Dr. Noav as well today and he agrees with this plan. Lorna Ngo PA-C October 29, 2021 12:59 PM documented in this encounterJoint [facility]05-18-2022 Instructions* Patient Instructions* Lorna Ngo PA-C [...] Aspirin twice a day. documented in this encounterJoint [facility]04-27-2022 NoteHNO ID: [id number] Author: Alayna Kaiser ([employer]) Service: ? Author Type: ? Type: Plan [...] or your Primary Care Provider. 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 Stated Goals: To return home to life as it was Health Insurance: Medicare Health Issues Impacting Discharge Plan: Newly diagnosed Newly Diagnosed: hip replacement Advance Directive: Current Advance Directive: Health Care 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 of Welding 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 Thermit;Living Will In Chart: Yes Up To Date [...] Walker Has the Patient Been in a [facility] Facility in the Past 30 days?: No SOCIAL: Living Arrangements: Home Lives With: Spouse Financial Resources: Retired Primary Contact: Extended Emergency Contact Information Primary Emergency Contact: Raisa Mckoy Address: [address] [place] [address] [address] Relation: Spouse Supportive Patient Contact:: Yes [...] Psychosocial Needs: None FREEDOM OF CHOICE EXPLAINED: Mitchell of Choice Given: No Reason Not Given: No placements necessary POTENTIAL TRANSITION PLANS Outpatient Therapy Patient from home with spouse. Has an outpatient PT appt at 9:45 AM at [facility] outpatient PT. Spouse will transport home. SIGNATURE: Mary Kulkarni RN PATIENT NAME: Meera Mckoy DATE: October 08, 2021 TIME: 9:52 AM PAGER/CONTACT #: [phone] [id number] NoteHNO ID: [id number] Author: Arnulfo Bianchi MD Service: Anesthesiology Author [...] surgical anesthetic Staffing Anesthesiologist: Arnulfo Bianchi MD INVOICE CHECKER: Mary Andres APRN.INVOICE CHECKER Performed by: anesthesiologist Preparation Sterility Preparation: hand [...] October 07, 2021 TIME: 9:30 AM CSN: [id number] [id number] NoteHNO ID: [id number] Author: Lorna Ngo PA-C Service: ? 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 Please enter through the entrance closest to [...] Procedures: - YOU MUST HAVE A RESPONSIBLE PEWTER FINISHER TAKE YOU HOME. A DETENTION OFFICER OR FILE CLERK DATA ENTRY CANNOT BE MADE A RESPONSIBLE PEWTER FINISHER. - We recommend that a responsible person stays with you overnight to take care of you. - You cannot stay in a hotel alone after outpatient surgery. You will not be permitted to have yoursurgery, if you do not have someone to take care of you. If you already have an Advance Directive, please fax a copy to [phone] or email to for it to be [...] day. Maira Doss APRN.CNP documented in this encounterJoint [facility]03-30-2022 History and physical note * Maira [...] fevers. Neuro: No history of TIA's, stroke, BILLING COLLECTIONS SPECIALIST tumor, impaired sensorium, hemiplegia, paraplegia or quadraplegia. No neurological symptoms or problems. Respiratory: No history of current cough or dyspnea, or pneumonia in the past 6 weeks. No history of respiratory/pulmonary symptoms or problems. + KATTY wears CPAP Cardiovascular: Negative for Recent DC, Arrhythmia, Chest Pain, DVT/PE + HTN on [...] 2021 TIME: 11:00 AM documented in this encounterJoint [facility]03-30-2022 Instructions* Patient Instructions* Lorna Ngo PA-C [...] you out after surgery. 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 Author Type: Physician Type: Progress Notes Filed: 06/23/2021 11:46 AM Note Text: Meera Mckoy is here today at request of Dr. Gordo Nova specifically for consultation of my opinion in regards to the chief complaint listed below. Correspondence will be shared today via the [employer] electronic health record or through regular mail, where applicable. CHIEF COMPLAINT: Meera Mckoy is a 71 year old male who presents today for new evaluation of right hip. CONSULTATION NOTE Correspondence will be shared today via the [employer] electronic health record or through regular mail, [...] hip joint Informed Consent Consent Obtained: Verbal Yermo Protocol A moment to CARE was completed. [...] Care Visit completed when applicable Gavin Elliott, [facility]01-06-2022 NoteHNO ID: [id number] Author: Gordo Nova MD Service: Orthopaedic Surgery Author Type: Physician Type: Progress Notes Filed: 06/23/2021 12:59 PM Note Text: [facility] [address] [place], [place] [address] CLINIC NOTE Department of Orthopaedics - Katrina Nova II, M.D. NAME: MEERA MCKOY CLINIC NO.: [id number] DATE OF SERVICE: 06/19/2021 CHIEF COMPLAINT: Pain [...] large belly. X-RAY: AP weight bearing shows [id number] on the superior weightbearing portion of the right hip with degenerative arthritis throughout the joint. IMPRESSION: Severe degenerative arthritis of the right hip. RECOMMEND: 1. Weight loss - discussed intermittent fasting. 2. Patient wants to get some relief of pain before he goes to [place] in July and then is considering having a total hip done upon his return. We have suggested a hip injection by Dr. Elliott. The patient is anxious to have this done, we will schedule. We will plan on doing his hip 3 months after the hip injection. Dictated By: Gordo Nova II, M.D. Date Dictated: 06/19/2021 Date Typed: matt 06/20/2021 JOB# [id number] [facility]01-06-2022 NoteHNO ID: [id number] Author: RT Eze(R) Service: ? Author Type: [...] BY: RT Eze(R) June 19, 2021 11:31 [facility]09-30-2021 Evaluation note* Encounter Date Diagnosis Assessment Notes [...] can reduce the intensity of perceived pain [employer] Other 08-01-2010 History general Narrative - Reported* Type Description Date Medical History hypertension Medical History KATTY Medical History cervical arthritis Medical History glaucoma Medical History prostate cancer Surgical History right TKA 01/2010 Surgical History left TKA 2009 Surgical History bilateral carpal tunnel Surgical History knee arthroscopies Surgical History left shoulder scope with rotato r cuff repair Hospitalization History see surgeries [facility] Other Evaluation note* Diagnosis Primary osteoarthritis of right hip- Primary Primary localized osteoarthrosis, pelvic region and thigh Primary osteoarthritis of right hip Primary localized osteoarthrosis, pelvic region and thigh documented in this encounter [facility] note* Diagnosis Pre-op evaluation- Primary Preoperative examination, unspecified Primary osteoarthritis of right hip Primary localized osteoarthrosis, pelvic region and thigh Primary hypertension Unspecified essential hypertension Primary osteoarthritis of right hip Primary localized osteoarthrosis, pelvic region and thigh [facility] Diagnosis S/P hip replacement, right- Primary documented in this encounter [facility] note* Diagnosis S/P hip replacement, right- Primary documented in this encounter [facility] note* Diagnosis S/P hip replacement, right- Primary documented in this encounter [facility] note* Diagnosis S/P hip replacement, right- Primary Heterotopic ossification of joint documented in this encounter [facility] noteNo assessment [facility] Work Phone: Evaluation note* Diagnosis S/P hip replacement, right documented in this encounter [facility] note* Diagnosis Mixed hyperlipidemia- Primary Essential hypertension, benign Obstructive sleep apnea syndrome Obstructive sleep apnea (adult) (pediatric) documented in this encounter [facility] Work Phone: Evaluation note* Diagnosis Onset Date Resolution Status Greater trochanteric bursitis of right hip acute Heterotopic ossification of joint acute History of total hip arthroplasty [facility] Work Phone: Evaluation note* Diagnosis Pre-op evaluation- Primary Preoperative examination, unspecified Primary osteoarthritis of right hip Primary localized osteoarthrosis, pelvic region and thigh Primary hypertension Unspecified essential hypertension S/P hip replacement, right [facility] Diagnosis Pre-op evaluation- Primary Preoperative examination, unspecified Primary osteoarthritis of right hip Primary localized osteoarthrosis, pelvic region and thigh Primary hypertension Unspecified essential hypertension S/P hip replacement, right [facility] Diagnosis Pre-op evaluation- Primary Preoperative examination, unspecified Primary osteoarthritis of right hip Primary localized osteoarthrosis, pelvic region and thigh Primary hypertension Unspecified essential hypertension S/P hip replacement, right [facility] Diagnosis Primary osteoarthritis of right hip Primary localized osteoarthrosis, pelvic region and thigh [facility]* Diagnosis IFG (impaired fasting glucose)- Primary Agatston coronary artery calcium score less than 100 Essential hypertension ([facility]/HCC) Unspecified essential hypertension Morbid obesity ([facility]) Morbid obesity documented in this encounter [facility]* Diagnosis Shortness of breath- Primary Agatston coronary artery calcium score less than 100 Essential hypertension, benign Mixed hyperlipidemia Mild aortic stenosis Aortic valve disorders BMI 35.0-35.9,adult Localized edema Edema documented in this encounter [facility] Work Phone: Evaluation note* Diagnosis Primary insomnia Persistent disorder of initiating or maintaining sleep documented in this encounter 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 Healthcare[facility]* Diagnosis Marital disruption involving estrangement- Primary Other family disruption Stricture of male urethra, unspecified stricture type Personal history of prostate cancer Personal history of malignant neoplasm of prostate Recurrent kidney stones Hyperuricemia Other abnormal blood chemistry IFG (impaired fasting glucose) Morbid obesity ([facility]/HCC) Morbid obesity Obstructive sleep apnea syndrome Obstructive sleep apnea (adult) (pediatric) documented [facility] [...] of change in cardiac status or symptoms [facility] [address] DO Work Phone: Reason for referral (narrative)* Outpatient Procedure (Routine) - Authorized Specialty Diagnoses / Procedures Referred By Contac t Referred To [facility] Diagnoses Pre-op evaluation Primary osteoarthritis of right hip Procedures ECG COMPLETE ECG ROUTINE ECG W/LEAST 12 LDS W/I&R Maira Doss, ZIA.BEHAVIOR SUPPORT SPECIALIST [address] [place] [address] [facility] [place] [address] [place] [address] Referral ID Status Reason Start Date Expiration Date Visits Requested Visits Authorized [id number] Authorized Auto-Generat ed Referral 09/10/2021 09/10/2022 1 1 [facility] for referral (narrative)* Diagnostic Procedure Only (Routine) - Pending Review Specialty Diagnoses / Procedures Referred By Contac t Referred To Contact XR IMAGING Diagnoses S/P hip replacement, right Procedures XR PELVIS 1V AP RADIOLOGIC EXAMINATION PELVIS 1/2 VIEWS Lorna Ngo PA-C [address] [place] [address] Xr Imaging Referral ID Status Reason Start Date Expiration Date Visits Requested Visits Authorized [id number] Pending Review Auto-Generat ed Referral 10/28/2021 11/27/2022 1 1 * Diagnostic Procedure Only (Routine) - Closed Specialty Diagnoses / Procedures Referred By Contac t Referred To Contact XR IMAGING Diagnoses S/P hip replacement, right Procedures XR PELVIS 1V AP RADIOLOGIC EXAMINATION PELVIS 1/2 VIEWS Lorna Ngo PA-C [address] [place] [address] Xr Imaging Referral ID Status Reason Start Date Expiration Date V isits Requested Visits Authorized [id number] Closed Auto-Generate d Referral 10/26/2021 11/25/2022 1 1 [facility] for referral (narrative)* Consultation (Routine) - Authorized Specialty Diagnoses / Procedures Referred By Contac t Referred To Contact Cardiology Diagnoses Mixed hyperlipidemia Essential hypertension, benign Procedures Follow Up In Cardiology Cely Marley MD [address] [place] [address] 2, [address] [address] Cely Marley MD [address] [facility] 2, [address] [address] Referral ID Status Reason Start Date Expiration Date V isits Requested Visits Authorized [id number] Authorized 04/09/2023 04/08/2024 1 1 [facility] Work Phone: Reason for referral (narrative)* Diagnostic Procedure Only (Routine) - Closed Specialty Diagnoses / Procedures Referred By Contac t Referred To Contact XR IMAGING Diagnoses S/P hip replacement, right Procedures XR PELVIS 1V AP RADIOLOGIC EXAMINATION PELVIS 1/2 VIEWS Lorna Ngo PA-C [address] [place] [address] [place] [address] Referral ID Status Reason Start Date Expiration Date V isits Requested Visits Authorized [id number] Closed Auto-Generate d Referral 05/20/2022 06/19/2023 1 1 [facility] for referral (narrative)* Diagnostic Procedure Only (Routine) - Closed Specialty Diagnoses / Procedures Referred By Contac t Referred To Contact XR IMAGING Diagnoses S/P hip replacement, right Procedures XR PELVIS 1V AP RADIOLOGIC EXAMINATION PELVIS 1/2 VIEWS Gordo Nova MD [address] [place] [address] [place] [address] Referral ID Status Reason Start Date Expiration Date V isits Requested Visits Authorized [id number] Closed Auto-Generate d Referral 01/11/2022 02/10/2023 1 1 T [facility] for referral (narrative)* Diagnostic Procedure Only (Routine) - Closed Specialty Diagnoses / Procedures Referred By Contac t Referred To Contact XR IMAGING Diagnoses S/P hip replacement, right Procedures XR PELVIS 1V AP RADIOLOGIC EXAMINATION PELVIS 1/2 VIEWS Lorna Ngo PA-C [address] [place] [address] [place] [address] Referral ID Status Reason Start Date Expiration Date V isits Requested Visits Authorized [id number] Closed Auto-Generate d Referral 10/26/2021 11/25/2022 1 1 [facility] for referral (narrative)* Diagnostic Procedure Only (Routine) - Closed Specialty Diagnoses / Procedures Referred By Contac t Referred To Contact XR IMAGING Diagnoses Primary osteoarthritis of right hip Procedures XR HIP GENERAL 3V PELV/AP/LAT RIGHT RADEX HIP UNILATERAL WITH PELVIS 2-3 VIEWS Gordo Nova MD [address] [place] [address] [place] [address] Referral ID Status Reason Start Date Expiration Date V isits Requested Visits Authorized [id number] Closed Auto-Generate d Referral 06/18/2021 07/18/2022 1 1 [facility] for referral (narrative)* Consultation (Routine) - Authorized Specialty Diagnoses / Procedures Referred By Contac t Referred To Contact Orthopaedic Surgery Diagnoses Heterotopic ossification of bone Mona Reese DO [address] [facility] [address] [place] [address] Drew Esposito PA [address] [facility] [address] [place] [address] Referral ID Status Reason Start Date Expiration Date Visits Requested Visits Authorized [id number] Authorized Specialty Services Required 02/09/2024 08/07/2024 1 1 [facility] for visit Narrative* Diagnostic Procedure Only (Routine) - Closed Specialty Diagnoses / Procedures Referred By Contac t Referred To Contact XR IMAGING Diagnoses S/P hip replacement, right Procedures XR PELVIS 1V AP RADIOLOGIC EXAMINATION PELVIS 1/2 VIEWS Lorna Ngo PA-C [address] [place] [address] [place] [address] Referral ID Status Reason Start Date Expiration Date V isits Requested Visits Authorized [id number] Closed Auto-Generate d Referral 05/20/2022 06/19/2023 1 1 [facility] for visit Narrative* Diagnostic Procedure Only (Routine) - Closed Specialty Diagnoses / Procedures Referred By Contac t Referred To Contact XR IMAGING Diagnoses S/P hip replacement, right Procedures XR PELVIS 1V AP RADIOLOGIC EXAMINATION PELVIS 1/2 VIEWS Lorna Ngo PA-C [address] [place] [address] [place] [address] Referral ID Status Reason Start Date Expiration Date V isits Requested Visits Authorized [id number] Closed Auto-Generate d Referral 10/26/2021 11/25/2022 1 1 [facility] Diagnostic Procedure Only (Routine) - Closed Specialty Diagnoses / Procedures Referred By Contac t Referred To Contact XR IMAGING Diagnoses Primary osteoarthritis of right hip Procedures XR HIP GENERAL 3V PELV/AP/LAT RIGHT RADEX HIP UNILATERAL WITH PELVIS 2-3 VIEWS Gordo Nova MD [address] [place] [address] [place] [address] Referral ID Status Reason Start Date Expiration Date V isits Requested Visits Authorized [id number] Closed Auto-Generate d Referral 06/18/2021 07/18/2022 1 1 [facility] Summary Purpose Family History Unknown Family [...] Documents on File Type Date Recorded Patient Certified Orthotist Practice Manager Expl anation Advance Directive(s) 09/09/2021 5:40 PM Advance Directive(s) 02/26/2010 3:22 PM Documents on File Type Date Recorded Patient Certified Orthotist Practice Manager Expl anation Advance Directive(s) 09/09/2021 5:40 PM Advance Directive(s) 02/26/2010 3:22 PM Documents on File Type Date Recorded Patient Certified Orthotist Practice Manager Expl anation Advance Directive(s) 10/07/2021 7:42 AM sc anned in on 10/07/21 Advance Directive(s) 10/07/2021 7:39 AM Advance Directive(s) 09/09/2021 5:40 PM Advance Directive(s) 02/26/2010 3:22 PM Documents on File Type Date Recorded Patient Certified Orthotist Practice Manager Expl anation Advance Directive(s) 10/07/2021 7:42 AM sc anned in on 10/07/21 Advance Directive(s) 10/07/2021 7:39 AM Advance Directive(s) 09/09/2021 5:40 PM Advance Directive(s) 02/26/2010 3:22 PM Documents on File Type Date Recorded Patient Certified Orthotist Practice Manager Expl anation Advance Directive(s) 10/07/2021 7:39 AM Advance Directive(s) 02/26/2010 3:22 PM Advance Directive Response Recorded Date/ Time Advance Directives Yes February 05, 2017 1:13pm Documents on File Type Date Recorded Patient Certified Orthotist Practice Manager Expl anation Advance Directive(s) 10/07/2021 7:39 AM [...] total hip arthroplasty February 09, 2024 8:59am Chief Complaint Admit Date Amb Documentation April 12, 2024 3 :38pm Mckenna, Hip pain April 25, 2024 7:00am Back Pain April 26, 2024 7:35am 3 MONTHS May 10, 2024 8:43am Reason for Visit Admit Date Greater trochanteric bursitis of right h ip May 10, 2024 8:43am Heterotopic ossification of joint Novemb er 2023 8:43am History of total hip arthroplasty Novemb er 2023 8:43am Trigger finger, right ring finger Novemb er 2023 8:43am Reason for Referral Specialty Diagnoses / Procedures Referred By Ronen wolf Referred To Contact Diagnoses Primary insomnia Essie Daugherty, ESCORT SERVICE ATTENDANT [address] [place] [address] Referral ID Status Reason Start Date Expiration Date V isits Requested Visits Authorized [id number] Pending Review 1 1 Additional Source Comments (unrecognized sect ion and content) No Status Records FoundNo Status Records FoundNo Status Records FoundNo Status Records FoundNo Status Records FoundNo Status Records FoundNo Status Records FoundNo Status Records FoundNo Status Records Found INFORMATION SOURCE (unrecogn ized section and content) DATE CREATED AUTHOR 03/07/2021 [facility] DATE CREATED AUTHOR AUTHOR'S ORGANIZ ATION 10/01/2021 [facility] dical Specialist DATE CREATED AUTHOR AUTHOR'S ORGANIZ ATION 10/09/2021 [facility] DATE CREATED AUTHOR AUTHOR'S ORGANIZ ATION 01/21/2022 [facility] DATE CREATED AUTHOR AUTHOR'S ORGANIZ ATION 04/11/2022 [facility] DATE CREATED AUTHOR AUTHOR'S ORGANIZ ATION [facility]/20[facility] DATE CREATED AUTHOR AUTHOR'S ORGANIZ ATION 04/14/2024 [facility] dical Specialists EPIC DATE CREATED AUTHOR AUTHOR'S ORGANIZ ATION 04/16/2024 [facility] DATE CREATED AUTHOR AUTHOR'S ORGANIZ ATION 07/12/2024 [facility] Source Comments (unrecognize d section and content) In the event this informatio n is protected by the Federal Confidentiality of Alcohol and Drug Abuse Patient Records regulations: The Federal rules restrict any use of the information to criminally investigate or prosecute any alcohol or drug abuse patient.[facility] the event this information is protected by the Federal Confidentiality of Alcohol and Drug Abuse Patient Records regulations: The Federal rules restrict any use of the information to criminally investigate or prosecute any alcohol or drug abuse patient.[facility] the event this information is protected by the Federal Confidentiality of Alcohol and Drug Abuse Patient Records regulations: The Federal rules restrict any use of the information to criminally investigate or prosecute any alcohol or drug abuse patient.[facility] the event this information is protected by the Federal Confidentiality of Alcohol and Drug Abuse Patient Records regulations: The Federal rules restrict any use of the information to criminally investigate or prosecute any alcohol or drug abuse patient.[facility] the event this information is protected by the Federal Confidentiality of Alcohol and Drug Abuse Patient Records regulations: The Federal rules restrict any use of the information to criminally investigate or prosecute any alcohol or drug abuse patient.[facility] the event this information is protected by the Federal Confidentiality of Alcohol and Drug Abuse Patient Records regulations: The Federal rules restrict any use of the information to criminally investigate or prosecute any alcohol or drug abuse patient.[facility] the event this information is protected by the Federal Confidentiality of Alcohol and Drug Abuse Patient Records regulations: The Federal rules restrict any use of the information to criminally investigate or prosecute any alcohol or drug abuse patient.[facility] the event this information is protected by the Federal Confidentiality of Alcohol and Drug Abuse Patient Records regulations: The Federal rules restrict any use of the information to criminally investigate or prosecute any alcohol or drug abuse patient.[facility] the event this information is protected by the Federal Confidentiality of Alcohol and Drug Abuse Patient Records regulations: The Federal rules restrict any use of the information to criminally investigate or prosecute any alcohol or drug abuse patient.[facility] Hospital[facility] the event this information is protected by the Federal Confidentiality of Alcohol and Drug Abuse Patient Records regulations: The Federal rules restrict any use of the information to criminally investigate or prosecute any alcohol or drug abuse patient.[facility] Hospital[facility] the event this information is protected by the Federal Confidentiality of Alcohol and Drug Abuse Patient Records regulations: The Federal rules restrict any use of the information to criminally investigate or prosecute any alcohol or drug abuse patient.[facility] Hospital[facility] the event this information is protected by the Federal Confidentiality of Alcohol and Drug Abuse Patient Records regulations: The Federal rules restrict any use of the information to criminally investigate or prosecute any alcohol or drug abuse patient.[facility] Care Teams (unrecognized sec tion and content) Team Status: Active Member Role Status Dates Mona Reese DO Primary Care Provider Active Team Status: Active Member Role Status Dates [...] 2024 End: April 25, 2024 Team Status: Inactive Member Role Status Dates Mona Reese DO Primary Care Provide r, Attending Provider Active Start: April 26, 2024 End: April 26, 2024 Team Status: Inactive Member Role Status Dates Mona Reese DO Primary Care Provider Active Start: May 10, 2024 End: May 10, 2024 Mona Lezama II, MD Attending Provider Active Start: May 10, 2024 End: May 10, 2024 Biomass Plant Manager Relationship Specialty Start Date End Date Mona Reese, DO [address] [place] [address] PCP - General 01/09/10 Biomass Plant Manager Relationship Specialty Start Date End Date Mona Reese, DO [address] [place] [address] PCP - General 01/09/10 Biomass Plant Manager Relationship Specialty Start Date End Date Mona Reese DO [address] [place] [address] PCP - General 01/09/10 Biomass Plant Manager Relationship Specialty Start Date End Date WilfredMona mehta DO [address] [place] [address] PCP - General 01/09/10 Biomass Plant Manager Relationship Specialty Start Date End Date TarynMona clark, DO [address] [place] [address] PCP - General 01/09/10 Biomass Plant Manager Relationship Specialty Start Date End Date TarynMona clark, DO [address] [place] [address] PCP - General 01/09/10 Team Status: Inactive Member Role Status Dates Mona Reese DO Primary Care Provider, Attending Raphael reynoso Active Biomass Plant Manager Relationship Specialty Start Date End Date Mary Ann Mona Streeter DO [address] [place] [address] PCP - General 01/09/10 Biomass Plant Manager Relationship Specialty Start Date End Date Mary Ann Mona DO Ferdinand [address] [facility] [address] [place] [address] PCP - General 06/14/99 Team Status: Inactive [...] February 11, 2024 End: February 11, 2024 CARLITOS HackettC Attending Provider Active S tart: February 11, 2024 End: February 11, 2024 Biomass Plant Manager Relationship Specialty Start Date End Date Mary Ann Mona StreeterDO [address] [place] [address] PCP - General 01/09/10 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 Plant 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 Relationship Specialty Start Date End Date Mona Reese DO [address] [place] [address] PCP - General 01/09/10 Biomass Plant Manager Relationship Specialty Start Date End Date Mary Ann Mona StreeterDO [address] [place] [address] PCP - General 01/09/10 Biomass Plant Manager Relationship Specialty Start Date End Date Mona Reese DO [address] [place] [address] PCP - ACO Reach 11/05/22 Mona Reese DO [address] [place] [address] PCP - General Internal Medicine 12/28/22 Biomass Plant Manager Relationship Specialty Start Date End Date Mary Ann Mona StreeterDO [address] [place] [address] PCP - General Internal Medicine 04/14/24 Cely Marley MD [address] [facility] [address] [place] [address] Consulting Physician Cardiology 11/1/24 Team Status: Active Member Role Status Dates Mona Reese DO Primary Care Provider Active Start: February 11, 2024 TRAVIS Hackett Other Provider Active Start : February 11, 2024 Rasheed Myers MD Attending Provider Activ e Start: February 11, 2024 Team Status: Active Member Role Status Dates Mona Reese DO Primary Care Provide r, Attending Provider Active Start: April 26, 2024 Biomass Plant Manager Relationship Specialty Start Date End Date Mona Reese DO [address] [place] [address] PCP - ACO Reach 11/05/22 Mona Reese DO [address] [place] [address] PCP - General Internal Medicine 12/28/22 Biomass Plant Manager Relationship Specialty Start Date End Date Mona Reese DO [address] [place] [address] PCP - ACO Reach 11/05/22 Mona Reese DO [address] [place] [address] PCP - General Internal Medicine 12/28/22 Biomass Plant Manager Relationship Specialty Start Date End Date Mona Reese DO [address] [place] [address] PCP - ACO Reach 11/05/22 Mona Reese DO [address] [place] [address] PCP - General Internal Medicine 12/28/22 Biomass Plant Manager Relationship Specialty Start Date End Date Mona Reese DO [address] [place] [address] PCP - ACO Reach 11/05/22 Mona Reese DO [address] [place] [address] PCP - General Internal Medicine 12/28/22 Biomass Plant Manager Relationship Specialty Start Date End Date Mona Reese DO [address] [place] [address] PCP - ACO Reach 11/05/22 Mona Reese DO [address] [place] [address] PCP - General Internal Medicine 12/28/22 Reason for Visit (unrecogniz ed section and content) Reason Comments Pre-Op Visit Reason Comments Post Op Reason Comments Radiology XR Reason Comments Follow Up Reason Comments Annual Exam 1yr Reason Comments Radiology XR Specialty Diagnoses / Procedures Referred By Ronen wolf Referred To Contact XR IMAGING Diagnoses S/P hip replacement, right Procedures XR PELVIS 1V AP RADIOLOGIC EXAMINATION PELVIS 1/2 VIEWS Gordo Nova MD [address] [place] [address] [place] [id number] Referral ID Status Reason Start Date Expiration Date V isits Requested Visits Authorized [id number] Closed Auto-Generate d Referral 01/11/2022 02/10/2023 1 1 Reason Comments 2 [facility] Comments Follow-up 1 yr Specialty Diagnoses / Procedures Referred By Ronen wolf Referred To Contact Cardiology Diagnoses Mixed hyperlipidemia Essential hypertension, benign Procedures Follow Up In Cardiology Cely Marley MD [address] [facility] [address] [place] [address] Phone: tel: fax: Cely Marley MD [address] [facility] [address], [address] [address] Phone: tel: fax: Referral ID Status Reason Start Date Expiration Date V isits Requested Visits Authorized [id number] Authorized 04/09/2023 04/08/2024 1 1 Reason Onset Date Comments Med Refill 02/15/2024 Reason Comments Three-Week Follow Up Reason Comments 3 Month OV Goals (unrecognized section and content) Goals may [...] BE BASED ON THE PRIMARY CLINICAL RECORDS. [employer] provides no warranty or guarantee of the accuracy or completeness of information in this document.
== END 2024-07-13 10:48 | disposition home or self-care (01) ==
LOC: VC 08:56
PROVIDERS: PCP Radiology Diagnostic Radiology; Visit Provider Radiology Diagnostic Radiology
DX: I80.02 Phlebitis and thrombophlebitis of superficial vessels of left lower extremity (principal)
CPT/HCPCS: 93971; G0463